=== PATIENT | male | born 1945 | race Caucasian/White ===

== ENCOUNTER 2016-07-09 10:07 | Inpatient (IN) | payer MEDICARE, OTHER ==
[~2016-07-09] VITALS: Ht 167.6 cm; Wt 78.7 kg
[2016-07-09] MEDS ORDERED: SOD CHLORIDE 0.9% 500 ML IV STA (10:11)
[2016-07-09 10:35] LABS: ADD SCAN DIFF NO
[2016-07-09 10:40] LABS: BASOPHILS % 0.1 % (0.0-2.0); EOSINOPHILS # 0.2 10^3/ul (0.0-0.5); EOSINOPHILS % 1.6 % (0.0-7.0); HEMATOCRIT 30.2 % (42.0-52.0); HEMOGLOBIN 9.8 g/dl (14.0-18.0); LYMPHOCYTES # 0.8 10^3/ul (0.8-2.9); LYMPHOCYTES % 8.1 % (15.0-51.0); MEAN CORPUSCULAR HEMOGLOBIN 30.4 pg (29.0-33.0); MEAN CORPUSCULAR HGB CONC 32.5 g/dl (32.0-37.0); MEAN CORPUSCULAR VOLUME 93.8 fl (82.0-101.0); MEAN PLATELET VOLUME 9.7 fl (7.4-10.4); MONOCYTE # 0.8 10^3/ul (0.3-0.9); MONOCYTES % 7.7 % (0.0-11.0); NEUTROPHIL # 8.2 10^3/ul (1.6-7.5); NEUTROPHILS % 81.9 % (39.0-77.0); PLATELET COUNT 298 10^3/UL (140-415); RED BLOOD COUNT 3.22 10^6/ul (4.70-6.10); RED CELL DISTRIBUTION WIDTH 13.2 % (11.5-14.5)
[2016-07-09] MEDS ORDERED: ZOLP10TA PO (10:53)
[2016-07-09] MEDS ORDERED: ARGI1POW19 PO (10:53)
[2016-07-09] MEDS ORDERED: ASPI81TA3 PO (10:53)
[2016-07-09] MEDS ORDERED: BENZ1TAB7 PO (10:54)
[2016-07-09 10:55] LABS: INR 1.2; PROTIME 15.3 Sec (12.2-14.2); PT RATIO 1.2
[2016-07-09] MEDS ORDERED: FURO20TA3 PO (10:55)
[2016-07-09] MEDS ORDERED: CLON-379 PO (10:55)
[2016-07-09] MEDS ORDERED: IPRA3AMP INHALATION (10:55)
[2016-07-09 10:56] LABS: PARTIAL THROMBOPLASTIN TIME 34.7 Sec (25.0-35.0)
[2016-07-09] MEDS ORDERED: ATOR40TA68 PO (10:56)
[2016-07-09] MEDS ORDERED: HYDR-906 PO (10:57)
[2016-07-09] MEDS ORDERED: MULTI PO (10:57)
[2016-07-09] MEDS ORDERED: FINA5TAB PO (10:57)
[2016-07-09 10:58] LABS: ALBUMIN 2.1 g/dl (3.3-4.9); ALBUMIN/GLOBULIN RATIO 0.61; CALCIUM 7.9 mg/dl (8.4-10.2); CREATININE 4.26 mg/dl (0.61-1.24); POTASSIUM 4.1 mmol/L (3.5-5.1); TOTAL PROTEIN 5.5 g/dl (6.1-8.1)
[2016-07-09] MEDS ORDERED: PANT40TA3 PO (10:59)
[2016-07-09] MEDS ORDERED: ACET-2047 PO (11:00)
[2016-07-09] MEDS ORDERED: TRAZ100T15 PO (11:00)
[2016-07-09] MEDS ORDERED: ASCO500C7 PO (11:00)
[2016-07-09] MEDS ORDERED: LATA2.5D9 BOTH EYES (11:01)
[2016-07-09] MEDS ORDERED: LISI-526 PO (11:04)
--- NOTE | 2016-07-09 11:04 | ERA ---
ER Documentation Chief Complaint Date/Time DATE: 07/09/16 TIME: 11:02 Chief Complaint elevated bun and creatinin HPI 71-year-old elderly male sent to the emergency room because of routine blood test showing elevated BUN and creatinine. The patient is conversive and has no complaints. He denies any nausea vomiting or abdominal pain. He denies any fevers, chills, chest pain or shortness of breath. He denies history of dialysis. ROS All systems reviewed and are negative except as per history of present illness. Medications Home Meds Reported Medications Olanzapine* (Zyprexa*) 5 Mg Tablet, 5 MG PO QHS, #30 TAB 07/09/16 Zinc Sulfate* (Zinc Sulfate*) 220 Mg Tablet, 220 MG PO DAILY, TAB 07/09/16 Lisinopril* (Zestril*) 40 Mg Tablet, 40 MG PO DAILY, #30 TAB HOLD FOR SBP<110 07/09/16 Latanoprost (Xalatan) 2.5 Ml Drops, 1 DROP BOTH EYES QHS, #1 BOTTLE 07/09/16 Ascorbic Acid* (Vitamin C*) 500 Mg Capsule.sa, 500 MG PO DAILY, CAP 07/09/16 Acetaminophen* (Acetaminophen*) 650 Mg Tablet, 650 MG PO Q4 Y for PAIN AND OR ELEVATED TEMP, #30 TAB 07/09/16 Trazodone Hcl* (Trazodone Hcl*) 100 Mg Tablet, 100 MG PO QHS, #30 TAB 07/09/16 Pantoprazole* (Protonix*) 40 Mg Tablet.dr, 40 MG PO AC BREAKFAST, TAB 07/09/16 Finasteride* (Proscar*) 5 Mg Tablet, 5 MG PO DAILY, TAB 07/09/16 Hydrocodone/Acetaminophen ([place] 5-325 Tablet) 1 Each Tablet, 1 EACH PO Q4 Y for SEVERE PAIN LEVEL 7-10, TAB 07/09/16 Multivitamins* (Theragran*) 1 Tab Tab, 1 TAB PO DAILY, TAB 07/09/16 Atorvastatin* (Atorvastatin*) 40 Mg Tablet, 40 MG PO QHS, #30 TAB 07/09/16 Furosemide* (Furosemide*) 20 Mg Tablet, 20 MG PO DAILY, #60 TAB 07/09/16 Ipratropium-Albuterol (Ipratropium-Albuterol) 0.5-3 Mg/3 Ml Ampul.neb, 3 ML INHALATION Q6, #30 VIAL 07/09/16 Clonidine Hcl* (Clonidine Hcl*) 0.1 Mg Tab, 0.1 MG PO Q6 Y for ELEVATED BLOOD PRESSURE, TAB 07/09/16 Benztropine Mesylate* (Benztropine Mesylate*) 1 Mg Tablet, 1 MG PO BID, TAB 07/09/16 Aspirin* (Aspirin* Chew) 81 Mg Tab.chew, 81 MG PO DAILY, TAB.CHEW 07/09/16 Arginine/Ascorbate Sod/Julio AC (Arginaid Powder) 1 Each Powd.pack, 1 EACH PO BID 07/09/16 Zolpidem Tartrate* (Ambien*) 10 Mg Tablet, 10 MG PO QHS Y for INSOMNIA, TAB 07/09/16 Discontinued Reported Medications Lisinopril* (Zestril*) 40 Mg Tablet, 40 MG PO DAILY, #30 TAB 07/09/16 Allergies Allergies: Coded Allergies: No Known Allergy (Unverified , 07/09/16) PMhx/Soc Hx Alcohol Use: No Hx Substance Use: No Hx Tobacco Use: No Smoking Status: Never smoker FmHx Family History: No diabetes Physical Exam Vitals Vital Signs Date Time Temp Pulse Resp B/P Pulse Ox O2 Delivery O2 Flow Rate FiO2 07/09/16 10:10 98.1 71 18 114/71 99 Physical Exam General: Well developed, well nourished, no acute distress Head: Normocephalic, atraumatic. Eyes: Pupils equally reactive, EOM intact ENT: Slightly dry mucous membranes Neck: Supple, no lymphadenopathy Respiratory: Lungs clear bilaterally, no distress Cardiovascular: RRR, no murmurs, rubs, or gallops Abdominal: Soft, non-tender, non-distended, no peritoneal signs : Deferred MSK: No edema, no unilateral swelling, 5/5 strength Neurologic: Alert and oriented, moving all extremities, normal speech, no focal weakness, no cerebellar signs Skin: No rash Psych: Normal mood Result Diagram: 07/09/16 1025 07/09/16 1025 Results 24 hrs Laboratory Tests Test 07/09/16 10:25 07/09/16 10:40 White Blood Count 10.010^3/ul Red Blood Count 3.2210^6/ul Hemoglobin 9.8g/dl Hematocrit 30.2% Mean Corpuscular Volume 93.8fl Mean Corpuscular Hemoglobin 30.4pg Mean Corpuscular Hemoglobin Concent 32.5g/dl Red Cell Distribution Width 13.2% Platelet Count 44981^3/UL Mean Platelet Volume 9.7fl Neutrophils % 81.9% Lymphocytes % 8.1% Monocytes % 7.7% Eosinophils % 1.6% Basophils % 0.1% Nucleated Red Blood Cells % 0.0/100WBC Neutrophils # 8.210^3/ul Lymphocytes # 0.810^3/ul Monocytes # 0.810^3/ul Eosinophils # 0.210^3/ul Basophils # 0.010^3/ul Nucleated Red Blood Cells # 0.010^3/ul Prothrombin Time 15.3Sec Prothrombin Time Ratio 1.2 INR International Normalized Ratio 1.20 Activated Partial Thromboplast Time 34.7Sec Sodium Level 146mmol/L Potassium Level 4.1mmol/L Chloride Level 117mmol/L Carbon Dioxide Level 23mmol/L Anion Gap 10 Blood Urea Nitrogen 95mg/dl Creatinine 4.26mg/dl Glucose Level 126mg/dl Calcium Level 7.9mg/dl Total Bilirubin 0.0mg/dl Direct Bilirubin 0.00mg/dl Indirect Bilirubin 0.0mg/dl Aspartate Amino Transf (AST/SGOT) 30IU/L Alanine Aminotransferase (ALT/SGPT) 41IU/L Alkaline Phosphatase 90IU/L Troponin I 0.056ng/ml Total Protein 5.5g/dl Albumin 2.1g/dl Globulin 3.40g/dl Albumin/Globulin Ratio 0.61 Lipase 46U/L Urine Color YELLOW Urine Clarity CLEAR Urine pH 5.5 Urine Specific [place] 1.025 Urine Ketones NEGATIVE Urine Nitrite NEGATIVE Urine Bilirubin NEGATIVE Urine Urobilinogen 0.2 E.U./dL Urine Leukocyte Esterase TRACE Urine Microscopic RBC 25-50/HPF Urine Microscopic WBC 0-2/HPF Urine Squamous Epithelial Cells FEW Urine Bacteria FEW Urine Hemoglobin 3+ Urine Glucose NEGATIVE% Urine Total Protein 2+ Current Medications Medications (Trade) Dose Ordered Sig/Shreyas Route PRN Reason Start Time Stop Time Status Last Admin Dose Admin Sodium Chloride (NS) 500 ml @ 500 mls/hr Q1H STAT IV 07/09/16 10:11 07/09/16 11:10 DC 07/09/16 10:46 Procedures/MDM EKG, MONITORS, & DIAGNOSTIC IMAGING: EKG: I reviewed and interpreted a 12-lead EKG. Rhythm: Normal sinus rhythm Ectopy: None Intervals: No abnormalities ST segments: No elevations or depressions T waves: No contiguous inversions Chest x-ray: Per radiology IMPRESSION: 1. Increased soft tissue density is seen at the right inferior lateral pleural with a convex medial margin. This could represent loculated fluid, hematoma, or a mass. 2. The right costophrenic angle is blunted suspicious for pleural fluid but no pneumothorax is evident. 3. The heart size is normal but the pulmonary vasculature is equivocal for pulmonary venous obstruction and interstitial infiltrates extend to the perihilar regions becoming more alveolar at the lung bases which could represent pulmonary edema or pneumonitis. There is slight pleural parenchymal scarring at the left pulmonary apex. Findings of increased soft tissue density at the right inferior lateral pleural with a convex medial margin that could represent loculated fluid, hematoma or a mass were telephoned by Carlos Carty MD to Dr. Prasad on 07/09/[address] abdomen and pelvis: IMPRESSION: 1. Findings concerning for a partially obstructive colonic mass/neoplasm at the level of the rectosigmoid junction, as discussed above. Endoscopic correlation is recommended. No gross evidence of metastatic disease is seen in the abdomen and pelvis. 2. Moderate retained fecal material is suggestive of constipation. 3. Bowel containing left inguinal/scrotal hernia is identified, without obstruction or incarceration. 4. There are mild bilateral pleural effusions, partially loculated on the right. Severe bibasilar pulmonary emphysema is noted. 5. Cholelithiasis is seen without evidence for cholecystitis. 6. Aortoiliac atherosclerotic calcifications are present. 7. Avila catheter balloon is within the urinary bladder. RPTAT: AA LAB INTERPRETATION: No leukocytosis, anemia, creatinine elevation of 4.26 unknown baseline, potassium 4.1, negative troponin MEDICAL DECISION MAKING: Patient presents for routine blood draw showing evidence of acute renal failure. Unclear etiology. Patient has no evidence of CHF, consideration for possible obstructive process therefore Avila catheter was replaced. Low concern for acute intra-abdominal process though given patient's age CT imaging will be obtained. Patient is otherwise extremely well-appearing in the emergency room and will undergo screening for hyperkalemia. The patient will likely be admitted for further management of acute renal failure. ER COURSE: The patient's diagnostic imaging is very concerning for malignancy possible colonic malignancy with pulmonary metastasis. Inpatient hospitalization for further workup. The patient was given IV fluids. No indication for antibiotics. No evidence of hyperkalemia. I kept the patient and/or family informed of laboratory and diagnostic imaging results throughout the emergency room course. DISPOSITION PLAN: Medical surgical admission for management of acute renal failure, likely new diagnosis of malignancy CONSULTATION: Accepting care team and consultations: I discussed the current laboratory data, diagnostic imaging and emergency care provided. Admitting team: Dr. Rene Admitting team indication: Insurance directed, primary care physician Departure Diagnosis: Primary Impression: Acute renal failure Qualified Code: N17.9 - Acute renal failure, unspecified acute renal failure type Additional Impressions: Colonic mass Pulmonary mass Condition: Stable WELLINGTON PRASAD MD July 09, 2016 11:04
[2016-07-09] MEDS ORDERED: ZINC220T PO (11:05)
[2016-07-09] MEDS ORDERED: OLAN5TAB5 PO (11:06)
[2016-07-09 11:09] LABS: TROPONIN-I 0.056 ng/ml (0.00-0.12)
[2016-07-09 11:09] LABS: ADD UMIC YES; UR BILIRUBIN (Dip) NEGATIVE (NEGATIVE); UR BLOOD (Dip) 3+ (NEGATIVE); UR CLARITY CLEAR (CLEAR); UR COLOR YELLOW (YELLOW); UR GLUCOSE (Dip) NEGATIVE (NEGATIVE); UR KETONES (Dip) NEGATIVE (NEGATIVE); UR LEUKOCYTE ESTERASE (Dip) TRACE (NEGATIVE); UR NITRITE (Dip) NEGATIVE (NEGATIVE); UR TOTAL PROTEIN (Dip) 2+ (NEGATIVE); UR UROBILINOGEN (Dip) 0.2 E.U./dL (0.1-1.0)
--- NOTE | 2016-07-09 11:16 | RADRPT ---
PROCEDURE: XR Chest AP portable CLINICAL INDICATION: Abdominal pain TECHNIQUE: An AP portable radiograph of the chest was submitted. COMPARISON: None. FINDINGS: Support Hardware: None Cardiovascular: The heart is normal in size. The pulmonary vasculature is equivocal for pulmonary v enous obstruction. Lung Rogers: There is perihilar interstitial prominence. Increasing alveolar infiltrate is seen wit hin the medial lower lung zones bilaterally. Pleural Spaces: There is minimal pleural parenchymal scarring at the left pulmonary apex. There is increased soft tissue density involving the right inferior lateral pleural with a medial convex nahid in. This could represent a mass, loculated fluid, or hematoma. The left costophrenic angle is blun mike but no pneumothorax is evident. Osseous Structures: Mild degenerative spine changes are seen diffusely. Soft Tissues: The soft tissues appear unremarkable. IMPRESSION: 1. Increased soft tissue density is seen at the right inferior lateral pleural with a convex medial margin. This could represent loculated fluid, hematoma, or a mass. 2. The right costophrenic angle is blunted suspicious for pleural fluid but no pneumothorax is evid ent. 3. The heart size is normal but the pulmonary vasculature is equivocal for pulmonary venous obstruc tion and interstitial infiltrates extend to the perihilar regions becoming more alveolar at the lung bases which could represent pulmonary edema or pneumonitis. There is slight pleural parenchymal sc arring at the left pulmonary apex. Findings of increased soft tissue density at the right inferior lateral pleural with a convex medial margin that could represent loculated fluid, hematoma or a mass were telephoned by Carlos Carty MD to Dr. Prasad on 07/09/2016 at 1112 hours. Physician Rick Date Time Electronically viewed and signed by Physician Rick on 07/09/2016 11:16 /
[2016-07-09 11:30] LABS: UR BACTERIA FEW; UR SQUAMOUS EPITHELIAL CELL FEW; URINE RBCS 25-50 /HPF (0)
--- NOTE | 2016-07-09 11:59 | RADRPT ---
PROCEDURE: CT Abdomen and Pelvis without contrast. CLINICAL INDICATION: Abdominal pain TECHNIQUE: CT of the abdomen and pelvis was performed on a multi-detector scanner without IV contr ast. Coronal and sagittal images were reformatted from the axial data set. One or more of the foll owing dose reduction techniques were used: automated exposure control, adjustment of the mA and/or kV according to patient size, use of iterative reconstruction technique. CTDI = 12.62 mGy. DLP = 89 1.21 mGy-cm. COMPARISON: None. FINDINGS: CT abdomen: There are mild bilateral pleural effusions, partially loculated on the right. Severe bibasilar pulm onary emphysema is noted. The heart size is normal, without pericardial effusion. Cholelithiasis i s seen without evidence for cholecystitis. Liver, biliary tree, pancreas, spleen, adrenal glands an d kidneys are unremarkable except for a benign right renal cyst. There is no urolithiasis or obstru ctive uropathy. The stomach is grossly unremarkable. The aorta is of normal caliber. Aortic vascular calcifications are present. There is no retroperit amaya lymphadenopathy. The ciera hepatis region is clear. CT pelvis: Moderate retained fecal material is suggestive of constipation. 3 cm segment of narrowing and wall thickening is identified at the rectosigmoid junction (3-135). Proximally, the sigmoid colon is sig nificantly distended and stool-filled. Partially obstructive colonic neoplasm is not excluded in th is location. No adjacent lymphadenopathy is seen. There is no small bowel obstruction, free intrap eritoneal air or abscess. The appendix is well visualized and normal. There is no diverticulosis o r diverticulitis. Bowel containing left inguinal/scrotal hernia is identified, without incarceratio n. Avila catheter balloon is within the urinary bladder. No pelvic lymphadenopathy or free fluid i s identified. The surrounding osseous structures are remarkable for degenerative spondylosis of the spine. No ost eolytic or osteoblastic lesion is detected. IMPRESSION: 1. Findings concerning for a partially obstructive colonic mass/neoplasm at the level of the rectos igmoid junction, as discussed above. Endoscopic correlation is recommended. No gross evidence of m etastatic disease is seen in the abdomen and pelvis. 2. Moderate retained fecal material is suggestive of constipation. 3. Bowel containing left inguinal/scrotal hernia is identified, without obstruction or incarceratio n. 4. There are mild bilateral pleural effusions, partially loculated on the right. Severe bibasilar pulmonary emphysema is noted. 5. Cholelithiasis is seen without evidence for cholecystitis. 6. Aortoiliac atherosclerotic calcifications are present. 7. Avila catheter balloon is within the urinary bladder. RPTAT: AA .Irvin Serrano MD, MD Date Time Electronically viewed and signed by .Irvin Serrano MD, on 07/09/2016 11:59 .R/
[2016-07-09] MEDS ORDERED: ACETAMINOPHEN 325 MG TAB PO PRN (12:30)
[2016-07-09] MEDS ORDERED: ONDANSETRON 4 MG INJ IV PRN ×2 (12:30→20:30)
[2016-07-09 19:35] VITALS: BP 132/63; PULSE 81; RESP 18
[2016-07-09] MEDS: LACTULOSE 30ML CUP PO SCH ×2 (20:07→22:15)
[2016-07-09] MEDS ORDERED: ACETAMINOPHEN 500 MG TAB PO PRN (20:30)
[2016-07-09] MEDS ORDERED: HYDROCODONE/APAP (5/325) TAB PO PRN (20:30)
[2016-07-09] MEDS ORDERED: ALBUTEROL/IPRATROPIUM (NEB) 3 ML AMP HHN PRN (20:30)
[2016-07-09] MEDS ORDERED: ZOLPIDEM 5 MG TAB PO PRN (20:30)
[2016-07-09] MEDS ORDERED: LACTULOSE 30ML CUP PO SCH (21:00)
[2016-07-09] MEDS ORDERED: traZODone 100 MG TAB PO SCH (21:00)
[2016-07-09] MEDS: BENZTROPINE 1 MG TAB PO SCH (22:15)
[2016-07-09] MEDS: OLANZAPINE 5 MG TAB PO SCH (22:15)
[2016-07-09] MEDS: ATORVASTATIN 40 MG TAB PO SCH (22:15)
[2016-07-09] MEDS: SOD CHLORIDE 0.45% 1,000 ML IV SCH (22:16)
[2016-07-09] MEDS: LATANOPROST 0.005% 2.5 ML OPH BOTH EYES SCH (22:19)
[2016-07-10] VITALS (8 sets, daily range): BP systolic 102–132; BP diastolic 55–65; PULSE 63–72; RESP 19–22; Ht 167.6 cm; Wt 78.7 kg
[2016-07-10] MEDS: LACTULOSE 30ML CUP PO SCH ×2 (00:25→01:42)
--- NOTE | 2016-07-10 00:26 | CONS ---
DATE OF ADMISSION: 07/09/2016 DATE OF CONSULTATION: TYPE OF CONSULTATION: Gastroenterology. Dear Dr. Rene: Thank you for asking me to see Mr. Dove in GI consultation. HISTORY OF PRESENT ILLNESS: As you know, the patient is a 71-year-old white gentleman. He is admit mike to the hospital because of the history of confusion and weakness and tiredness, and patient is u nable to communicate. She is confused. On admission BUN and creatinine were significantly elevated and CAT scan of the abdomen shows mass in the rectosigmoid area. MEDICATIONS: Prior to the admission includes: 1. Zyprexa. 2. Zinc sulfate. 3. Zestril. 4. Xalatan. 5. Trazodone. 6. Protonix. 7. Proscar. 8. [place]. 9. ____ . 10. Atorvastatin. 11. Furosemide 12. Clonidine. 13. Benztropine. 14. Aspirin. 15. Ambien. 16. Zestril. REVIEW OF SYSTEM: Please refer to the history and physical for more information. From the review o f systems standpoint the patient has history of hypertension, renal failure, parkinsonism. There is also questionable pulmonary mass noted. PLAN: Recommend stabilize the patient and recommend colonoscopy. Once again, Dr. Rene, thank you for this consultation. Dictated By: DARWIN GUSMAN/MEAGAN Conf#: [id number] DID#: [id number]
[2016-07-10] MEDS: SOD CHLORIDE 0.45% 1,000 ML IV SCH ×2 (05:31→16:43)
--- NOTE | 2016-07-10 05:49 | HP ---
DATE OF ADMISSION: 07/09/2016 HISTORY OF PRESENT ILLNESS: The patient is a 71-year-old gentleman with a history of COPD, hyperten zenobia, benign prostatic hypertrophy, dementia with behavioral disturbance and dyslipidemia, who was r ecently admitted at [facility] for acute encephalopathy and was diagnosed with UTI, dehydration and metabolic encephalopathy. Further workup also revealed that he had acute stroke on his MRI. The patient was sent to [facility] ER nursing [facility] for further care. The patient also had decubiti on both feet. The patient at baseline is awake, alert; however, only oriented x1 to 2. The patient was recently noted to have leg edema and in view of his tory of hypertension and COPD, the patient was given a trial of Lasix 20 mg every day and followup l abs revealed that patient was in acute kidney injury. The patient's BUN was 12, creatinine was 0.6 on 06/18/2016. Followup labs done last night revealed BUN of 95, creatinine of 4.2. The patient's sodium was 147. The patient was transferred to [facility] ER for further evaluation and ky shannan, where he again was noted to have BUN of 95, creatinine of 4.2. Liver enzymes were normal. The patient had CT of the abdomen and pelvis done in the ER today at [facility] which rev ealed findings concerning for partial obstructive colonic mass arising at the level of the rectus ma rgin, moderate fecal material and cholelithiasis. The patient also had aortic atherosclerotic calci fication. A Avila was in place. The patient also had a hemoglobin of 9.8. Baseline, his hemoglobi n was 12. The patient did not have any recent rectal bleed. The patient denies any , he did h ave occasional cough. The patient does have history of COPD and had been smoking on and off for sev eral years. The patient is a poor historian due to dementia. The patient denies any chest pain or abdominal pain. No reported bleeding from any site. The patient does not have any edema on the low er extremities. A chest x-ray was done in the ER which revealed increased soft tissue density right inferolateral pleura with convex medial margin, possibility of loculated fluid, also fo r obstruction and interstitial infiltrates representing pulmonary edema or pneumonia. The pat ient, however, clinically did not have any white count and was afebrile. Urine examination had only trace leukocyte esterase and few bacteria and 0 to 2 WBCs. The patient is being admitted for [facility] er evaluation and management. . REVIEW OF SYSTEMS: Review of systems was rather limited due to . Denies pain or throat pain and was breathing comfortably. The patient did not have any acute joint swelling. The patient has chronic bilateral feet and coccygeal decubiti. . MEDICATIONS: Please see . FAMILY HISTORY: Denies any family history. SOCIAL HISTORY: The patient smokes . PHYSICAL EXAMINATION: GENERAL: The patient is awake, alert, in no distress, oriented x1. HEENT: Atraumatic, normocephalic. Conjunctivae and lids normal. Oropharynx revealed dry oral muco sa. NECK: Supple. No mass, no thyromegaly. CHEST: Revealed diminished air entry at bases. No use of accessory muscles. CARDIOVASCULAR: S1, S2 normal. No murmur, gallop, or rub. ABDOMEN: Soft, nondistended, nontender. No palpable mass. EXTREMITIES: No leg edema. Pedal pulses palpable. SKIN: Without acute rash. Bilateral heel and coccyx decubiti present. Please see nursing note for further details. NEUROLOGIC: The patient is awake, alert, follows simple commands. Moves all extremities, although the patient does have generalized weakness. LABORATORY DATA: Done in the ER, WBC 10, hemoglobin 9.8, platelets 298. Chemistry: Sodium 146, po tassium 4.1, BUN 95, creatinine 4.2, glucose 126. IMPRESSION: 1. Acute kidney injury, etiology unknown. The patient's CT of the abdomen does not show any hydron ephrosis. The patient will be given a trial of IV fluids. We will also obtain echocardiogram to as sess LV function. We will hold off on antibiotic. Nephrology consult from Dr. Srinivasan has been obt ained. 2. Hypertension. We will hold off on Zestril. The patient's blood pressure is 131/76. We will pu t him on IV hydralazine on p.r.n. basis for now. 3. Chronic obstructive pulmonary disease. We will continue to monitor. The patient is not activel y wheezing. 4. Benign prostatic hypertrophy. We will resume Flomax. 5. Loculated pleural effusion. Monitor. 6. Multiple decubiti. Wound care consult will be obtained. 7. Acute cerebrovascular accident. We will start baby aspirin. 8. Dyslipidemia. We will continue Lipitor. 9. Dementia with behavioral disturbance. Continue Zyprexa. Further recommendations will depend on patient's hospital course and recommendations from [employer] consultant s. Dictated By: RONNIE PEREZ/MEAGAN Conf#: [id number] DID#: [id number]
[2016-07-10 06:17] LABS: ADD SCAN DIFF NO
[2016-07-10 06:24] LABS: BASOPHILS % 0.1 % (0.0-2.0); EOSINOPHILS # 0.1 10^3/ul (0.0-0.5); EOSINOPHILS % 0.4 % (0.0-7.0); HEMATOCRIT 32.2 % (42.0-52.0); HEMOGLOBIN 10.3 g/dl (14.0-18.0); LYMPHOCYTES # 0.7 10^3/ul (0.8-2.9); LYMPHOCYTES % 3.9 % (15.0-51.0); MEAN CORPUSCULAR VOLUME 93.9 fl (82.0-101.0); MEAN PLATELET VOLUME 9.9 fl (7.4-10.4); MONOCYTE # 0.8 10^3/ul (0.3-0.9); MONOCYTES % 4.4 % (0.0-11.0); NEUTROPHIL # 16.8 10^3/ul (1.6-7.5); NEUTROPHILS % 90.7 % (39.0-77.0); PLATELET COUNT 309 10^3/UL (140-415); RED BLOOD COUNT 3.43 10^6/ul (4.70-6.10); RED CELL DISTRIBUTION WIDTH 13.6 % (11.5-14.5); WHITE BLOOD COUNT 18.5 10^3/ul (4.8-10.8)
[2016-07-10 06:57] LABS: ALBUMIN 2.1 g/dl (3.3-4.9); ALBUMIN/GLOBULIN RATIO 0.61; CALCIUM 7.7 mg/dl (8.4-10.2); CREATININE 4.28 mg/dl (0.61-1.24); POTASSIUM 3.4 mmol/L (3.5-5.1); TOTAL PROTEIN 5.5 g/dl (6.1-8.1)
--- NOTE | 2016-07-10 08:59 | CONS ---
Date/Time of Note Date/Time of Note DATE: 07/10/16 TIME: 08:55 Assessment/Plan Assessment/Plan Additional Assessment/Plan 1. Acute kidney injury, Pre- Renal R/o ATN, Avila no signs of obstructive Uropathy, Hx of BPH. 2. Hypertension. Normotensive at this time. 3. Chronic obstructive pulmonary disease. 4. Benign prostatic hypertrophy. 5. Loculated pleural effusion. 6. Multiple decubiti 7. Cerebrovascular accident. 8. Dyslipidemia. 9. Dementia with behavioral disturbance. 10. Metabolic Acidosis Pt with Elevated BUN/Cr in the setting of Sepsis, Possible ATN UA reviewed, F/u Urine culture r/o UTI Will Send repeat UA, Urine Na and Cr, Check Urine Eos Send Complement C3/4, Add WILL, UPC Due to AMS and lethargy recommend Telemetry and ABG CT Imaging reviewed Cont to monitor UO, Volume status, Electrolytes and Renal function No emergent indication for HD at this time, Cr stable. Thank you Dr Patel for the opportunity to participate in the care of Mr Dove Consultation Date/Type/Reason Admit Date/Time July 09, 2016 at 12:24 Type of Consultation: Renal Reason for Consultation SRAVANTHI Referring Provider: RONNIE PATEL MD Hx of Present Illness Pt is poor historian at this time,due to clinical condition Hx taken from EMR and Hospital staff. 71-year-old gentleman with a history of COPD, hypertension, benign prostatic hypertrophy, dementia with behavioral disturbance and dyslipidemia, who [facility] with abnormal labs and further evaluation, found to have abnormal renal function, Elevated BUN/Cr and concern for sepsis. Nephrology consulted for SRAVANTHI, Pt is making urine however it is dark and concentrated. Avila catheter present. unable Past Medical History Medical History: hypertension, other (COPD) Past Surgical History Past Surgical Hx: other Family History Significant Family History: no pertinent family hx Social History Alcohol Use: none Smoking Status: Never smoker Drug Use: none Exam/Review of Systems Vital Signs Vitals Vital Signs Date Time Temp Pulse Resp B/P Pulse Ox O2 Delivery O2 Flow Rate FiO2 07/10/16 07:49 101.9 79 22 132/61 92 07/10/16 02:45 2.0 07/10/16 00:50 Nasal Cannula Intake and Output 07/09/16 07/09/16 07/10/16 15:00 23:00 07:00 Intake Total 700 ml Balance 700 ml Exam Constitutional: No distress Head: atraumatic, normocephalic ENMT: other, No mucosa pink and moist Respiratory: crackles/rales, No diminished breath sounds, No labored breathing Cardiovascular: regular rate and rhythm, No edema Gastrointestinal: non-tender, soft, No distended, No rebound or guarding Extremities: No edema Neurological: lethargic Skin: No diaphoresis, No rash or lesions Results Result Diagram: 07/10/16 0535 07/10/16 0535 Results 24 hrs Laboratory Tests Test 07/09/16 10:25 07/09/16 10:40 07/10/16 05:35 White Blood Count 10.0 18.5 #H Red Blood Count 3.22 L 3.43 L Hemoglobin 9.8 L 10.3 L Hematocrit 30.2 L 32.2 L Mean Corpuscular Volume 93.8 93.9 Mean Corpuscular Hemoglobin 30.4 30.0 Mean Corpuscular Hemoglobin Concent 32.5 32.0 Red Cell Distribution Width 13.2 13.6 Platelet Count 298 309 Mean Platelet Volume 9.7 9.9 Neutrophils % 81.9 H 90.7 H Lymphocytes % 8.1 L 3.9 L Monocytes % 7.7 4.4 Eosinophils % 1.6 0.4 Basophils % 0.1 0.1 Nucleated Red Blood Cells % 0.0 0.0 Neutrophils # 8.2 H 16.8 H Lymphocytes # 0.8 0.7 L Monocytes # 0.8 0.8 Eosinophils # 0.2 0.1 Basophils # 0.0 0.0 Nucleated Red Blood Cells # 0.0 0.0 Prothrombin Time 15.3 H Prothrombin Time Ratio 1.2 INR International Normalized Ratio 1.20 Activated Partial Thromboplast Time 34.7 Sodium Level 146 H 148 H Potassium Level 4.1 3.4 L Chloride Level 117 H 121 H Carbon Dioxide Level 23 20 L Anion Gap 10 10 Blood Urea Nitrogen 95 H 97 H Creatinine 4.26 H 4.28 H Glucose Level 126 93 Calcium Level 7.9 L 7.7 L Total Bilirubin 0.0 L 0.0 L Direct Bilirubin 0.00 0.00 Indirect Bilirubin 0.0 0.0 Aspartate Amino Transf (AST/SGOT) 30 31 Alanine Aminotransferase (ALT/SGPT) 41 39 Alkaline Phosphatase 90 88 Troponin I 0.056 Total Protein 5.5 L 5.5 L Albumin 2.1 L 2.1 L Globulin 3.40 H 3.40 H Albumin/Globulin Ratio 0.61 0.61 Lipase 46 Urine Color YELLOW Urine Clarity CLEAR Urine pH 5.5 Urine Specific [place] 1.025 Urine Ketones NEGATIVE Urine Nitrite NEGATIVE Urine Bilirubin NEGATIVE Urine Urobilinogen 0.2 E.U./dL Urine Leukocyte Esterase TRACE H Urine Microscopic RBC 25-50 Urine Microscopic WBC 0-2 Urine Squamous Epithelial Cells FEW Urine Bacteria FEW Urine Hemoglobin 3+ H Urine Glucose NEGATIVE Urine Total Protein 2+ H Medications Medications Current Medications Sodium Chloride (1/2 NS) 1,000 ml @ 100 mls/hr Q10H IV Last administered on 22:16; Admin Dose 100 MLS/HR; Start 07/09/16 at 20:30 Acetaminophen (Tylenol Tab) 500 mg Q6H PRN PO PAIN AND OR ELEVATED TEMP; Start 07/09/16 at 20:30 Ondansetron HCl (Zofran Inj) 4 mg Q6H PRN IV NAUSEA AND/OR VOMITING; Start at 20:30 Zolpidem Tartrate (Ambien) 5 mg HS PRN PO INSOMNIA; Start 07/09/16 at 20:30 Aspirin (Aspirin) 81 mg DAILY PO ; Start 07/10/16 at 09:00 Atorvastatin Calcium (Lipitor) 40 mg QHS PO Last administered on 07/09/16 22: 15; Admin Dose 40 MG; Start 07/09/16 at 21:00 Benztropine Mesylate (Cogentin) 1 mg BID PO Last administered on 07/09/16 22: 15; Admin Dose 1 MG; Start 07/09/16 at 21:00 Clonidine (Catapres) 0.1 mg Q6 PRN PO SBP ABOVE 160; Start 07/09/16 at 20:30 Finasteride (Proscar) 5 mg DAILY PO ; Start 07/10/16 at 09:00 Acetaminophen/ Hydrocodone Bitart ([place] (5/325)) 1 tab Q4 PRN PO SEVERE PAIN LEVEL 7-10; Start 07/09/16 at 20:30 Latanoprost (Xalatan) 1 drop QHS BOTH EYES Last administered on 07/09/16 22:19 ; Admin Dose 1 DROP; Start 07/09/16 at 21:00 Multivitamins Therapeutic (Theragran) 1 tab DAILY PO ; Start 07/10/16 at 09:00 Olanzapine (Zyprexa) 5 mg QHS PO Last administered on 07/09/16 22:15; Admin Dose 5 MG; Start 07/09/16 at 21:00 Trazodone HCl (Desyrel) 100 mg QHS PO Last administered on 07/09/16 22:16; Admin Dose 100 MG; Start 07/09/16 at 21:00 Zinc Sulfate (Zinc Sulfate) 220 mg DAILY PO ; Start 07/10/16 at 09:[address] abdomen Liver, biliary tree, pancreas, spleen, adrenal glands and kidneys are unremarkable except for a benign right renal cyst. There is no urolithiasis or obstructive uropathy.\ Cxr IMPRESSION: 1. Increased soft tissue density is seen at the right inferior lateral pleural with a convex medial margin. This could represent loculated fluid, hematoma, or a mass. 2. The right costophrenic angle is blunted suspicious for pleural fluid but no pneumothorax is evident. 3. The heart size is normal but the pulmonary vasculature is equivocal for pulmonary venous obstruction and interstitial infiltrates extend to the perihilar regions becoming more alveolar at the lung bases which could represent pulmonary edema or pneumonitis. There is slight pleural parenchymal scarring at the left pulmonary apex. TACOS GREEN MD July 10, 2016 08:59
[2016-07-10] MEDS: MULTIVITAMINS THERAPEUTIC TAB PO SCH (09:00)
[2016-07-10] MEDS: ZINC SULFATE 220 MG CAP PO SCH (09:00)
[2016-07-10] MEDS: ASPIRIN 81 MG TAB PO SCH (09:00)
[2016-07-10] MEDS: FINASTERIDE 5 MG TAB PO SCH (09:00)
[2016-07-10] MEDS: PANTOPRAZOLE (EC) 40 MG TAB PO SCH (09:00)
[2016-07-10] MEDS: BENZTROPINE 1 MG TAB PO SCH ×2 (09:00→21:00)
[2016-07-10] MEDS ORDERED: ACETAMINOPHEN 650 MG SUPP PR PRN (09:30)
[2016-07-10 09:32] LABS: AADO2 Arterial 93.7 mmHg (7.0-24.0); Allen Test ACCEPTAB; Arterial Base Excess -4.6 mmol/L (-3.0-3); Arterial COHb 0.3 % (0.0-3.0); Arterial Fraction of Oxyhgb 92.5 % (93.0-99.0); Arterial HCO3 19.2 mmol/L (22.0-26.0); Arterial MetHb 0.4 % (0.0-1.5); Arterial Total Hemglobin 10.8 g/dl (12.0-18.0); MODE NASAL CANNULA
[2016-07-10] MEDS ORDERED: LIDOCAINE 2% (SDV) 5 ML INJ ONE (11:57)
[2016-07-10] MEDS ORDERED: PROPOFOL 0 ML ONE (11:57)
[2016-07-10] MEDS ORDERED: EPHEDrine SULFATE 50 MG/5 ML SYG ONE (11:57)
[2016-07-10] MEDS ORDERED: FENTAnyl 50 MCG/ML VIAL ONE (11:58)
[2016-07-10] MEDS ORDERED: PHENYLephrine (100 MCG/ML) 5ML SYG ONE (11:58)
[2016-07-10 11:59] LABS: COMPLEMENT C3 97 mg/dl (88-165); COMPLEMENT C4 32 mg/dl (14-44)
[2016-07-10 12:08] LABS: ADD UMIC YES; UR BILIRUBIN (Dip) NEGATIVE (NEGATIVE); UR BLOOD (Dip) 3+ (NEGATIVE); UR CLARITY CLEAR (CLEAR); UR COLOR YELLOW (YELLOW); UR GLUCOSE (Dip) NEGATIVE (NEGATIVE); UR KETONES (Dip) NEGATIVE (NEGATIVE); UR LEUKOCYTE ESTERASE (Dip) TRACE (NEGATIVE); UR NITRITE (Dip) NEGATIVE (NEGATIVE); UR TOTAL PROTEIN (Dip) 2+ (NEGATIVE); UR UROBILINOGEN (Dip) 0.2 E.U./dL (0.1-1.0)
[2016-07-10] MEDS: CEFEPIME 1GM/50 ML (PMX) 50 ML IVPB SCH (12:12)
--- NOTE | 2016-07-10 12:36 | PN ---
Date/Time of Note Date/Time of Note DATE: 07/10/16 TIME: 12:26 Assessment/Plan VTE Prophylaxis VTE Prophylaxis Intervention: other Lines/Catheters IV [facility]ter [facility] (from [facility] Peripheral IV Urinary Cath still in place: Yes Reason Cath still needed: urinary retention Assessment/Plan Assessment/Plan - Hypokalemia- replet K, AM LABS. - Acute kidney injury, etiology unknown. The patient's CT of the abdomen does not show any hydronephrosis. The patient will be given a trial of IV fluids. We will also obtain echocardiogram to assess LV function. We will hold off on antibiotic. Nephrology consult from Dr. Srinivasan has been obtained. - Hypertension. We will hold off on Zestril. The patient's blood pressure is 131/76. We will put him on IV hydralazine on p.r.n. basis for now. - Chronic obstructive pulmonary disease. We will continue to monitor. The patient is not actively wheezing. - Benign prostatic hypertrophy. We will resume Flomax. - Loculated pleural effusion. Monitor. - Multiple decubiti. Wound care consult will be obtained. - Acute cerebrovascular accident. We will start baby aspirin. - Dyslipidemia. We will continue Lipitor. - Dementia with behavioral disturbance. Continue Zyprexa. Further recommendations will depend on patient's hospital course and recommendations from consultants. Subjective 24 Hr Interval Summary Free Text/Dictation Patient was seen on 6th floor before he got transferred to tele. alert, awake, responses to simple Qs. dw staff- patient was lethargic, less responsive this morning but was more responsive during assessment. c/o left leg pain- tylenol was given. pt to transfer to tele. Constitutional: requiring O2 Exam/Review of Systems Vital Signs Vitals Vital Signs Date Time Temp Pulse Resp B/P Pulse Ox O2 Delivery O2 Flow Rate FiO2 07/10/16 11:54 98.4 63 19 115/63 99 Nasal Cannula 2.0 Intake and Output 07/09/16 07/09/16 07/10/16 15:00 23:00 07:00 Intake Total 700 ml Balance 700 ml Exam Constitutional: alert, well developed Psych: nl mood/affect Eyes: EOMI, nl sclera ENMT: nl external ears & nose Neck: non-tender Respiratory: diminished breath sounds, normal air movement Cardiovascular: nl pulses Gastrointestinal: non-tender, soft Musculoskeletal: muscle weakness Extremities: normal pulses Neurological: confused Lymph: nontender Results Result Diagram: 07/10/16 0535 07/10/16 0535 Results 24 hrs Laboratory Tests Test 07/10/16 05:35 07/10/16 09:11 07/10/16 10:20 07/10/16 11:45 White Blood Count 18.5 #H Red Blood Count 3.43 L Hemoglobin 10.3 L Hematocrit 32.2 L Mean Corpuscular Volume 93.9 Mean Corpuscular Hemoglobin 30.0 Mean Corpuscular Hemoglobin Concent 32.0 Red Cell Distribution Width 13.6 Platelet Count 309 Mean Platelet Volume 9.9 Neutrophils % 90.7 H Lymphocytes % 3.9 L Monocytes % 4.4 Eosinophils % 0.4 Basophils % 0.1 Nucleated Red Blood Cells % 0.0 Neutrophils # 16.8 H Lymphocytes # 0.7 L Monocytes # 0.8 Eosinophils # 0.1 Basophils # 0.0 Nucleated Red Blood Cells # 0.0 Sodium Level 148 H Potassium Level 3.4 L Chloride Level 121 H Carbon Dioxide Level 20 L Anion Gap 10 Blood Urea Nitrogen 97 H Creatinine 4.28 H Glucose Level 93 Calcium Level 7.7 L Total Bilirubin 0.0 L Direct Bilirubin 0.00 Indirect Bilirubin 0.0 Aspartate Amino Transf (AST/SGOT) 31 Alanine Aminotransferase (ALT/SGPT) 39 Alkaline Phosphatase 88 Total Protein 5.5 L Albumin 2.1 L Globulin 3.40 H Albumin/Globulin Ratio 0.61 Blood Gas Specimen Source Blood arterial Arterial Blood Date Drawn 07/10/2016 9:20:07 AM Arterial Blood pH (Temp corrected) 7.408 Arterial Blood pCO2 (Temp correct) 31.1 L Arterial Blood pO2 (Temp corrected) 69.2 L Arterial Blood HCO3 19.2 L Arterial Blood Base Excess -4.6 L Arterial Blood Oxygen Saturation 93.2 L Markos Test ACCEPTAB Arterial Blood Gas Puncture Site Right Radial Arterial Blood Carboxyhemoglobin 0.3 Arterial Blood Methemoglobin 0.4 Blood Gas A-a O2 Differential 93.7 H Oxyhemoglobin Percent 92.5 L Total Hemoglobin 10.8 L Blood Gas Temperature 37.0 Blood Gas Modality NASAL CANNULA FiO2 28.0 Blood Gas Notified Whom Nick Blood Gas Notified Time 07/10/2016 9:31:42 AM Lactic Acid Level 0.9 Urine Color YELLOW Urine Clarity CLEAR Urine pH 5.0 Urine Specific [place] 1.025 Urine Ketones NEGATIVE Urine Nitrite NEGATIVE Urine Bilirubin NEGATIVE Urine Urobilinogen 0.2 E.U./dL Urine Leukocyte Esterase TRACE H Urine Microscopic RBC Pending Urine Microscopic WBC Pending Urine Hemoglobin 3+ H Urine Random Creatinine Pending Urine Random Sodium 26 L Urine Glucose NEGATIVE Urine Total Protein 2+ H Medications Medications Current Medications Sodium Chloride (1/2 NS) 1,000 ml @ 100 mls/hr Q10H IV Last administered on 22:16; Admin Dose 100 MLS/HR; Start 07/09/16 at 20:30 Acetaminophen (Tylenol Tab) 500 mg Q6H PRN PO PAIN AND OR ELEVATED TEMP; Start 07/09/16 at 20:30 Ondansetron HCl (Zofran Inj) 4 mg Q6H PRN IV NAUSEA AND/OR VOMITING; Start at 20:30 Zolpidem Tartrate (Ambien) 5 mg HS PRN PO INSOMNIA; Start 07/09/16 at 20:30 Aspirin (Aspirin) 81 mg DAILY PO ; Start 07/10/16 at 09:00 Atorvastatin Calcium (Lipitor) 40 mg QHS PO Last administered on 07/09/16 22: 15; Admin Dose 40 MG; Start 07/09/16 at 21:00 Benztropine Mesylate (Cogentin) 1 mg BID PO Last administered on 07/09/16 22: 15; Admin Dose 1 MG; Start 07/09/16 at 21:00 Clonidine (Catapres) 0.1 mg Q6 PRN PO SBP ABOVE 160; Start 07/09/16 at 20:30 Finasteride (Proscar) 5 mg DAILY PO ; Start 07/10/16 at 09:00 Acetaminophen/ Hydrocodone Bitart ([place] (5/325)) 1 tab Q4 PRN PO SEVERE PAIN LEVEL 7-10; Start 07/09/16 at 20:30 Latanoprost (Xalatan) 1 drop QHS BOTH EYES Last administered on 07/09/16 22:19 ; Admin Dose 1 DROP; Start 07/09/16 at 21:00 Multivitamins Therapeutic (Theragran) 1 tab DAILY PO ; Start 07/10/16 at 09:00 Olanzapine (Zyprexa) 5 mg QHS PO Last administered on 07/09/16 22:15; Admin Dose 5 MG; Start 07/09/16 at 21:00 Zinc Sulfate 220 mg 220 mg DAILY PO ; Start 07/10/16 at 09:00 Cefepime HCl (Maxipime 1gm/50 ml (Pmx)) 50 ml @ 100 mls/hr Q24H IVPB Last administered on 07/10/16 12:12; Admin Dose 100 MLS/HR; Start 07/10/16 at 10:00 Acetaminophen (Tylenol Supp) 650 mg Q6H PRN IN ELEVATED TEMPERATURE Last administered on 07/10/16 09:51; Admin Dose 650 MG; Start 07/10/16 at 09:30 Collagenase (Santyl) 1 applic DAILY TOP ; Start 07/10/16 at 14:00 ISAEL CRYSTAL July 10, 2016 12:36
[2016-07-10 13:19] LABS: UR BACTERIA FEW; URINE RBCS >200 /HPF (0)
--- NOTE | 2016-07-10 13:36 | GILP ---
DATE OF PROCEDURE: PROCEDURE: Colonoscopy up to mid transverse colon. SURGEON: Nick Fleming MD PREOPERATIVE DIAGNOSIS: CAT scan of the abdomen shows evidence of a mass in the rectosigmoid area. Procedure performed to rule out colon cancer. POSTOPERATIVE DIAGNOSIS: Suboptimal preparation, however, there is no evidence of any neoplasm note d in the sigmoid colon; however, it cannot be excluded because of suboptimal prep. DESCRIPTION OF PROCEDURE: After the informed written consent was obtained, the patient was asked to lie on the left lateral side. Intravenous anesthesia was given by [employer] (certified registered nurse anesthesiologist). When the patient became somnolent, the Olympus video colonoscope was introduced into the rectum and scope was advanced up to mid transverse colon. In the area of the sigmoid colo n, there is a large amount of stool noted, in spite of irrigation, no tumor noted. However, mid satna cending colon and rest of the descending colon and up to mid transverse colon, the colon appeared no rmal. Endoscope at this time was withdrawn and the procedure was terminated. PLAN: Recommend repeat the colonoscopy. Dictated By: NICK FLEMING MD NC/NTS Conf#: [id number] DID#: [id number] CC: RONNIE PATEL MD; NICK FLEMING MD;*EndCC*
[2016-07-10] MEDS ORDERED: POTASSIUM CHLORIDE 20 MEQ in SOD CHLORIDE 0.9% 100 ML IVPB ONE (14:00)
--- NOTE | 2016-07-10 15:25 | QN ---
Documentation Comment ID consult requested. Dr. Henderson to see pt shortly. Thank you. WADE PINK NP July 10, 2016 15:25
--- NOTE | 2016-07-10 16:22 | RADRPT ---
PROCEDURE: CT Chest without contrast. CLINICAL INDICATION: Respiratory failure. TECHNIQUE: Multiple contiguous helical CT images of the chest were obtained without the administra tion of intravenous contrast. Coronal and sagittal reformatted images were obtained from the source images. CTDIvol (mGy): 13.19; Total Exam DLP (mGy-cm): 575 67. One or more of the following dose reduction techniques were utilized: - Automated exposure control. - Adjustment of the mA and/or kV according to patient size. - Use of iterative reconstruction technique. COMPARISON: Chest x-ray 07/09/2016. FINDINGS: Limited imaging of the lower neck is unremarkable. The heart is not enlarged. There is no pericardial effusion. There is no mediastinal, hilar or axi llary lymphadenopathy. The thoracic aorta is normal in caliber. Mild aortic arch atherosclerotic ca lcification is present. The pulmonary arteries are not enlarged. Small bilateral pleural effusions are present. There is a loculated collection of pleural fluid wit hin the lateral aspect of the right lower thorax with scattered peripheral calcification suggesting a chronic loculated pleural fluid collection. Severe diffuse centrilobular emphysematous disease is observed. Patchy consolidation is seen bilaterally within the lung bases and may be partially due to atelectasis. Diffuse bronchial wall thickening is observed. Limited imaging of the upper abdomen is unremarkable. Degenerative changes of the thoracic spine are present. Chest wall soft tissues are unremarkable. IMPRESSION: No evidence of mass or lymphadenopathy of the chest. Severe diffuse emphysematous disease. Patchy basilar consolidation which may be partially due to atelectasis. Correlate with clinical sig ns and symptoms of pneumonia. Small bilateral pleural effusions with a loculated chronic-appearing collection within the right ple ural space. RPTAT: HLST .Hayley Crawford MD, MD Date Time Electronically viewed and signed by .Hayley Crawford MD, MD on 07/10/2016 16:22 .T/
[2016-07-10] MEDS: COLLAGENASE 30 GM TUBE TOP SCH (16:43)
[2016-07-10] MEDS: OLANZAPINE 5 MG TAB PO SCH (21:00)
[2016-07-10] MEDS: ATORVASTATIN 40 MG TAB PO SCH (21:00)
[2016-07-10] MEDS: LATANOPROST 0.005% 2.5 ML OPH BOTH EYES SCH (21:10)
[2016-07-10 21:12] LABS: TROPONIN-I 0.062 ng/ml (0.00-0.12)
[2016-07-10 21:16] LABS: CK-MB 1.05 ng/ml (0.0-2.4)
[2016-07-11] VITALS (12 sets, daily range): BP systolic 123–139; BP diastolic 60–72; PULSE 49–80; RESP 18–20
--- NOTE | 2016-07-11 02:13 | CONS ---
DATE OF ADMISSION: 07/09/2016 DATE OF CONSULTATION: 07/11/2016 TYPE OF CONSULTATION: Neurology. Thank you, Dr. Rene, for your kind referral for evaluation of encephalopathy. HISTORY OF PRESENT ILLNESS: The patient is a 71-year-old gentleman with history of hypertension, be nign prostatic hypertrophy, COPD, dementia, dyslipidemia, recent UTI, and worsening of metabolic enc ephalopathy treated at [facility], also acute stroke. According to history and phys ical examination note that hospitalization was about a month ago, at the end 05/2016. Patient was admitted because a routine blood test showed elevated BUN and creatinine. The patient's labs; BUN 95, creatinine 4.26 yesterday; today 97, creatinine 4.28. Sodium 148 today, potassium 3. 4, chloride 121, bicarbonate 20, total protein 5.5, albumin 2.1. Normal CK. WBC count 18.5 today, hemoglobin 10, hematocrit 32, neutrophils 90. Blood gas today showed pH of 7.431, pCO2 of 31, pO2 o f 69 on nasal cannula. PT 15, PTT 34. Urinalysis: Trace of leukocyte esterase, 3+ hemoglobin, 2+ protein. Chest CT scan shows patchy bibasilar consolidation; maybe atelectasis, severe diffuse emphysematous disease, small bilateral pleural effusion. Abdominal and pelvic CT scan shows a partially-obstructe d colonic mass or neoplasm at rectosigmoid junction. The patient had a colonoscopy up to midtransve rse colon, which with the exception of suboptimal preparation, did not show any masses. CURRENT MEDICATIONS 1. Cefepime. 2. Aspirin. 3. Proscar. 4. . 5. Lipitor 40. 6. Zyprexa 5 mg at bedtime. MEDICATIONS PRIOR TO ADMISSION: 1. Atorvastatin. 2. Clonidine. 3. Zestril. 4. Aspirin. 5. Benztropine. 6. Olanzapine 5 mg at bedtime. 7. Trazodone 100 at bedtime. 8. Ambien. 9. Furosemide. 10. Zinc. 11. Protonix. 12. Vitamin C. 13. Finasteride. ALLERGIES: NONE. SOCIAL HISTORY: No alcohol, tobacco, drug use. FAMILY HISTORY: Not known. PHYSICAL EXAMINATION VITAL SIGNS: Temperature 97.5, 74 pulse, 19 respirations, 128/65 blood pressure. GENERAL: Not in acute distress, lying in bed. HEENT: Normocephalic, atraumatic head. NECK: No carotid bruits. No thyromegaly. LUNGS: Clear to auscultation bilaterally. CARDIAC: Normal cardiac rhythm and sounds. ABDOMEN: Soft. EXTREMITIES: No cyanosis, clubbing, or edema. NEUROLOGIC: He is awake, alert, and oriented x1 only. Fluent speech. Present response to visual t hreat bilaterally. Pupils postsurgical on the right, about 4 mm and sluggishly reactive, about 3 mm on the left, extraocular movements intact without nystagmus. Symmetrical face, preserved facial st rength and sensation. Tongue is in midline. Motor strength examination somewhat limited, the patie nt not fully cooperative, but moves all extremities, possibly slight weakness in the left upper extr emity, maybe 4/5. Sensory examination grossly intact. Deep tendon reflexes 2+ upper extremities, a bsent in lower extremities. Upgoing toes bilaterally. Coordination preserved on psxdqd-zy-raitly t esting. No dysmetria or tremor. According to the chart, the patient midday today was more lethargic. IMPRESSION AND PLAN: Encephalopathy. The patient has leukocytosis with left shift, possible pneumo sallie, dehydration/acute renal failure, baseline dementia, history of recent stroke according to the brandon hilliard. For further evaluation of encephalopathy, I will obtain CT scan of the head, as well as EEG. Continue current treatment. Thank you very much for this interesting consultation. Dictated By: JAYE KNAPP/MEAGAN Conf#: [id number] DID#: [id number]
[2016-07-11] MEDS: SOD CHLORIDE 0.45% 1,000 ML IV SCH ×3 (02:30→20:56)
[2016-07-11] MEDS: BENZTROPINE 1 MG TAB PO SCH ×2 (09:09→20:55)
[2016-07-11] MEDS: ASPIRIN 81 MG TAB PO SCH (09:09)
[2016-07-11] MEDS: PANTOPRAZOLE (EC) 40 MG TAB PO SCH (09:09)
[2016-07-11] MEDS: CEFEPIME 1GM/50 ML (PMX) 50 ML IVPB SCH (09:10)
[2016-07-11] MEDS: MULTIVITAMINS THERAPEUTIC TAB PO SCH (09:10)
[2016-07-11] MEDS: ZINC SULFATE 220 MG CAP PO SCH (09:10)
[2016-07-11] MEDS: FINASTERIDE 5 MG TAB PO SCH (09:10)
[2016-07-11] MEDS: COLLAGENASE 30 GM TUBE TOP SCH (09:10)
--- NOTE | 2016-07-11 09:43 | PQ ---
Date/Time of Note Date/Time of Note DATE: 07/11/16 TIME: 09:36 Physician Query Documentation Clarification Dear Dr. Tyler, A review of the medical record found a need for documentation clarification. IMPRESSION AND PLAN: Encephalopathy. The patient has leukocytosis with left shift, possible pneumonia, dehydration/ acute renal failure, baseline dementia, history of recent stroke according to the chart. For further evaluation of encephalopathy, I will obtain CT scan of the head, as well as EEG. Continue current treatment. Based on your medical judgment, can you further clarify the type of encephalopathy? To facilitate accurate and complete coding, please martha ( x ) the suspected diagnosis that apply: ( ) Other encephalopathy ( ) Metabolic Encephalopathy ( x ) Toxic -Metabolic Encephalopathy ( ) Other Please provide your response by clicking edit document, making your choice ( x ), click ok/save and finally click sign. You may also document your response on your progress notes. Thank you for your time. Khurram Orantes RN, BSN, CCS, CCDS Clinical Inspector [employer] Information Management, CD[employer] and Coding Services [phone] Room # 1525 - Coding [address]~ [address] KHURRAM ORANTES July 11, 2016 09:43 JAYE TYLER MD July 11, 2016 10:42
--- NOTE | 2016-07-11 10:39 | RADRPT ---
PROCEDURE: CT brain without contrast CLINICAL INDICATION: Encephalopathy TECHNIQUE: CT of the brain without contrast performed on a multidetector CT scanner, with multiplan ar reformats. One or more of the following dose reduction techniques were used: Automated exposure control, adjustment in mA and / or kV according to patient size, use of iterative reconstructive geetha hnique. CTDIvol = 43/45 mGy; DLP = 540/90 mGy-cm. COMPARISON: None available FINDINGS: No acute intracranial hemorrhage is identified. No extra-axial fluid collection is seen. There is no mass effect. No midline shift is identified. Ventricles and sulci are mild to moderately enlarged compatible with volume loss. There are moderate to severe areas of hypodensity in the periventricular - deep white matter which a re nonspecific but suggestive of chronic small vessel ischemic changes. Garnica-white differentiation is preserved. Partly sella is noted. Atherosclerotic calcifications of the intracranial internal carotid arteries are noted. The calvarium, skull base are intact. Chronic healed post-traumatic deformity of the left zygomatic arch is seen. Mucosal thickening versus retention cyst in the right sphenoid sinus. IMPRESSION: 1. No evidence of acute intracranial pathology. 2. Mild to moderate volume loss, with moderate to severe chronic small vessel ischemic changes. RPTAT: VV .Reinaldo Oswald MD, Date Time Electronically viewed and signed by .Reinaldo Oswald MD, on 07/11/2016 10:39 .O/
[2016-07-11 12:10] LABS: ADD SCAN DIFF NO
[2016-07-11 12:15] LABS: BASOPHILS % 0.1 % (0.0-2.0); EOSINOPHILS # 0.3 10^3/ul (0.0-0.5); EOSINOPHILS % 2.1 % (0.0-7.0); HEMATOCRIT 29.2 % (42.0-52.0); HEMOGLOBIN 9.4 g/dl (14.0-18.0); LYMPHOCYTES % 7.6 % (15.0-51.0); MEAN CORPUSCULAR HEMOGLOBIN 29.9 pg (29.0-33.0); MEAN CORPUSCULAR HGB CONC 32.2 g/dl (32.0-37.0); MEAN PLATELET VOLUME 9.9 fl (7.4-10.4); MONOCYTE # 0.6 10^3/ul (0.3-0.9); MONOCYTES % 4.5 % (0.0-11.0); NEUTROPHIL # 10.7 10^3/ul (1.6-7.5); NEUTROPHILS % 85.1 % (39.0-77.0); PLATELET COUNT 264 10^3/UL (140-415); RED BLOOD COUNT 3.14 10^6/ul (4.70-6.10); RED CELL DISTRIBUTION WIDTH 13.7 % (11.5-14.5); WHITE BLOOD COUNT 12.6 10^3/ul (4.8-10.8)
[2016-07-11 12:35] LABS: CALCIUM 7.8 mg/dl (8.4-10.2); CREATININE 4.31 mg/dl (0.61-1.24); POTASSIUM 3.4 mmol/L (3.5-5.1)
[2016-07-11 13:16] LABS: ANA SCREEN NEGATIVE (NEGATIVE)
--- NOTE | 2016-07-11 14:36 | CONS ---
Date/Time of Note Date/Time of Note DATE: 07/11/16 TIME: 14:35 Assessment/Plan Assessment/Plan Chief Complaint/Hosp Course 1. Acute kidney injury, Pre- Renal R/o ATN, [place] no signs of obstructive Uropathy, Hx of BPH.- Non Oliguric 2. Hypertension. Normotensive at this time. 3. Chronic obstructive pulmonary disease. 4. Benign prostatic hypertrophy. 5. Loculated pleural effusion. 6. Multiple decubiti 7. Cerebrovascular accident. 8. Dyslipidemia. 9. Dementia with behavioral disturbance. 10. Metabolic Acidosis-stable Likely ATN Pt is non oliguric, K ok Na stable, on D5 1/2 NS Cont current treatment and IVFs Cr stable, Likely plateau No acute indication for HD at this time Problems: Consultation Date/Type/Reason Admit Date/Time July 09, 2016 at 12:24 Initial Consult Date Type of Consultation: Renal Referring Provider: RONNIE PATEL MD 24 HR Interval Summary Free Text/Dictation Improved mentation. Good UO [place], Dark Constitutional: No requiring O2 Exam/Review of Systems Vital Signs Vitals Vital Signs Date Time Temp Pulse Resp B/P Pulse Ox O2 Delivery O2 Flow Rate FiO2 07/11/16 12:11 73 07/11/16 11:51 98.0 18 138/60 98 07/11/16 09:09 Nasal Cannula 2.0 Intake and Output 07/10/16 07/10/16 07/11/16 15:00 23:00 07:00 Intake Total 100 ml 500 ml 1100 ml Output Total 600 ml 500 ml Balance 100 ml -100 ml 600 ml Exam Constitutional: alert, No distress ENMT: mucosa pink and moist Neck: No jvd Respiratory: No diminished breath sounds, No labored breathing Cardiovascular: regular rate and rhythm, No edema Gastrointestinal: distended, non-tender, soft, No rebound or guarding Neurological: No confused, No lethargic Skin: No diaphoresis Results Result Diagram: 07/11/16 1201 07/11/16 1201 Results 24 hrs Laboratory Tests Test 07/10/16 20:15 07/11/16 12:01 Creatine Kinase 69 Creatine Kinase Index 1.5 Creatinine Kinase MB (Mass) 1.05 Troponin I 0.062 White Blood Count 12.6 #H Red Blood Count 3.14 L Hemoglobin 9.4 L Hematocrit 29.2 L Mean Corpuscular Volume 93.0 Mean Corpuscular Hemoglobin 29.9 Mean Corpuscular Hemoglobin Concent 32.2 Red Cell Distribution Width 13.7 Platelet Count 264 Mean Platelet Volume 9.9 Neutrophils % 85.1 H Lymphocytes % 7.6 L Monocytes % 4.5 Eosinophils % 2.1 Basophils % 0.1 Nucleated Red Blood Cells % 0.0 Neutrophils # 10.7 H Lymphocytes # 1.0 Monocytes # 0.6 Eosinophils # 0.3 Basophils # 0.0 Nucleated Red Blood Cells # 0.0 Sodium Level 148 H Potassium Level 3.4 L Chloride Level 120 H Carbon Dioxide Level 20 L Anion Gap 11 Blood Urea Nitrogen 101 H Creatinine 4.31 H Glucose Level 89 Calcium Level 7.8 L Medications Medications Current Medications Sodium Chloride (1/2 NS) 1,000 ml @ 100 mls/hr Q10H IV Last administered on 04:47; Admin Dose 100 MLS/HR; Start 07/09/16 at 20:30 Acetaminophen (Tylenol Tab) 500 mg Q6H PRN PO PAIN AND OR ELEVATED TEMP; Start 07/09/16 at 20:30 Ondansetron HCl (Zofran Inj) 4 mg Q6H PRN IV NAUSEA AND/OR VOMITING; Start at 20:30 Zolpidem Tartrate (Ambien) 5 mg HS PRN PO INSOMNIA; Start 07/09/16 at 20:30 Aspirin (Aspirin) 81 mg DAILY PO Last administered on 07/11/16 09:09; Admin Dose 81 MG; Start 07/10/16 at 09:00 Atorvastatin Calcium (Lipitor) 40 mg QHS PO Last administered on 07/09/16 22: 15; Admin Dose 40 MG; Start 07/09/16 at 21:00 Benztropine Mesylate (Cogentin) 1 mg BID PO Last administered on 07/11/16 09: 09; Admin Dose 1 MG; Start 07/09/16 at 21:00 Clonidine (Catapres) 0.1 mg Q6 PRN PO SBP ABOVE 160; Start 07/09/16 at 20:30 Finasteride (Proscar) 5 mg DAILY PO Last administered on 07/11/16 09:10; Admin Dose 5 MG; Start 07/10/16 at 09:00 Acetaminophen/ Hydrocodone Bitart ([place] (5/325)) 1 tab Q4 PRN PO SEVERE PAIN LEVEL 7-10; Start 07/09/16 at 20:30 Latanoprost (Xalatan) 1 drop QHS BOTH EYES Last administered on 07/10/16 21:10 ; Admin Dose 1 DROP; Start 07/09/16 at 21:00 Multivitamins Therapeutic (Theragran) 1 tab DAILY PO Last administered on 09:10; Admin Dose 1 TAB; Start 07/10/16 at 09:00 Olanzapine (Zyprexa) 5 mg QHS PO Last administered on 07/09/16 22:15; Admin Dose 5 MG; Start 07/09/16 at 21:00 Zinc Sulfate 220 mg 220 mg DAILY PO Last administered on 07/11/16 09:10; Admin Dose 220 MG; Start 07/10/16 at 09:00 Cefepime HCl (Maxipime 1gm/50 ml (Pmx)) 50 ml @ 100 mls/hr Q24H IVPB Last administered on 07/11/16 09:10; Admin Dose 100 MLS/HR; Start 07/10/16 at 10:00 Acetaminophen (Tylenol Supp) 650 mg Q6H PRN [place] ELEVATED TEMPERATURE Last administered on 07/10/16 09:51; Admin Dose 650 MG; Start 07/10/16 at 09:30 Collagenase (Santyl) 1 applic DAILY TOP Last administered on 07/11/16 09:10; Admin Dose 1 APPLIC; Start 07/10/16 at 14:00 TACOS GREEN MD July 11, 2016 14:36
--- NOTE | 2016-07-11 14:41 | PN ---
Date/Time of Note Date/Time of Note DATE: 07/11/16 TIME: 14:33 Assessment/Plan VTE Prophylaxis VTE Prophylaxis Intervention: SCD's Lines/Catheters IV [facility] Type [facility] Peripheral IV Urinary Cath still in place: Yes Reason Cath still needed: urinary retention Assessment/Plan Chief Complaint/Hosp Course Patient is awake alert, pleasantly confused, dark urine Via [place], remains hemodynamically stable. Problems: Assessment/Plan - Acute kidney injury, etiology unknown. Dr. Keating is following in nephrology consultation. - Acute metabolic encephalopathy, resolving. - Hypertension. - Chronic obstructive pulmonary disease. - Benign prostatic hypertrophy. Continue Flomax. - Loculated pleural effusion. Continue to monitor chest x-ray. - Multiple decubitus ulcers. Continue current wound care - Acute cerebrovascular accident. Continue aspirin. - Dyslipidemia. Continue Lipitor. - Dementia with behavioral disturbance. Continue Zyprexa. Exam/Review of Systems Vital Signs Vitals Vital Signs Date Time Temp Pulse Resp B/P Pulse Ox O2 Delivery O2 Flow Rate FiO2 07/11/16 12:11 73 07/11/16 11:51 98.0 18 138/60 98 07/11/16 09:09 Nasal Cannula 2.0 Intake and Output 07/10/16 07/10/16 07/11/16 15:00 23:00 07:00 Intake Total 100 ml 500 ml 1100 ml Output Total 600 ml 500 ml Balance 100 ml -100 ml 600 ml Exam Constitutional: alert, frail Psych: confusion Neck: supple Respiratory: clear to auscultation Cardiovascular: nl pulses, regular rate and rhythm Gastrointestinal: non-tender, soft Genitourinary - Male: other Skin: other (Both wounds) Results Result Diagram: 07/11/16 1201 07/11/16 1201 Results 24 hrs Laboratory Tests Test 07/10/16 20:15 07/11/16 12:01 Creatine Kinase 69 Creatine Kinase Index 1.5 Creatinine Kinase MB (Mass) 1.05 Troponin I 0.062 White Blood Count 12.6 #H Red Blood Count 3.14 L Hemoglobin 9.4 L Hematocrit 29.2 L Mean Corpuscular Volume 93.0 Mean Corpuscular Hemoglobin 29.9 Mean Corpuscular Hemoglobin Concent 32.2 Red Cell Distribution Width 13.7 Platelet Count 264 Mean Platelet Volume 9.9 Neutrophils % 85.1 H Lymphocytes % 7.6 L Monocytes % 4.5 Eosinophils % 2.1 Basophils % 0.1 Nucleated Red Blood Cells % 0.0 Neutrophils # 10.7 H Lymphocytes # 1.0 Monocytes # 0.6 Eosinophils # 0.3 Basophils # 0.0 Nucleated Red Blood Cells # 0.0 Sodium Level 148 H Potassium Level 3.4 L Chloride Level 120 H Carbon Dioxide Level 20 L Anion Gap 11 Blood Urea Nitrogen 101 H Creatinine 4.31 H Glucose Level 89 Calcium Level 7.8 L Medications Medications Current Medications Sodium Chloride (1/2 NS) 1,000 ml @ 100 mls/hr Q10H IV Last administered on 04:47; Admin Dose 100 MLS/HR; Start 07/09/16 at 20:30 Acetaminophen (Tylenol Tab) 500 mg Q6H PRN PO PAIN AND OR ELEVATED TEMP; Start 07/09/16 at 20:30 Ondansetron HCl (Zofran Inj) 4 mg Q6H PRN IV NAUSEA AND/OR VOMITING; Start at 20:30 Zolpidem Tartrate (Ambien) 5 mg HS PRN PO INSOMNIA; Start 07/09/16 at 20:30 Aspirin (Aspirin) 81 mg DAILY PO Last administered on 07/11/16 09:09; Admin Dose 81 MG; Start 07/10/16 at 09:00 Atorvastatin Calcium (Lipitor) 40 mg QHS PO Last administered on 07/09/16 22: 15; Admin Dose 40 MG; Start 07/09/16 at 21:00 Benztropine Mesylate (Cogentin) 1 mg BID PO Last administered on 07/11/16 09: 09; Admin Dose 1 MG; Start 07/09/16 at 21:00 Clonidine (Catapres) 0.1 mg Q6 PRN PO SBP ABOVE 160; Start 07/09/16 at 20:30 Finasteride (Proscar) 5 mg DAILY PO Last administered on 07/11/16 09:10; Admin Dose 5 MG; Start 07/10/16 at 09:00 Acetaminophen/ Hydrocodone Bitart ([place] (5/325)) 1 tab Q4 PRN PO SEVERE PAIN LEVEL 7-10; Start 07/09/16 at 20:30 Latanoprost (Xalatan) 1 drop QHS BOTH EYES Last administered on 5/25/17at 21:10 ; Admin Dose 1 DROP; Start 07/09/16 at 21:00 Multivitamins Therapeutic (Theragran) 1 tab DAILY PO Last administered on 09:10; Admin Dose 1 TAB; Start 07/10/16 at 09:00 Olanzapine (Zyprexa) 5 mg QHS PO Last administered on 07/09/16 22:15; Admin Dose 5 MG; Start 07/09/16 at 21:00 Zinc Sulfate 220 mg 220 mg DAILY PO Last administered on 07/11/16 09:10; Admin Dose 220 MG; Start 07/10/16 at 09:00 Cefepime HCl (Maxipime 1gm/50 ml (Pmx)) 50 ml @ 100 mls/hr Q24H IVPB Last administered on 07/11/16 09:10; Admin Dose 100 MLS/HR; Start 07/10/16 at 10:00 Acetaminophen (Tylenol Supp) 650 mg Q6H PRN [place] ELEVATED TEMPERATURE Last administered on 07/10/16 09:51; Admin Dose 650 MG; Start 07/10/16 at 09:30 Collagenase (Santyl) 1 applic DAILY TOP Last administered on 07/11/16 09:10; Admin Dose 1 APPLIC; Start 07/10/16 at 14:00 ALE MCCONNELL July 11, 2016 14:41
--- NOTE | 2016-07-11 14:53 | CONS ---
Date/Time of Note Date/Time of Note DATE: 07/11/16 TIME: 14:53 Assessment/Plan Assessment/Plan Chief Complaint/Hosp Course patient seen and examined. full note to follow Problems: Consultation Date/Type/Reason Admit Date/Time July 09, 2016 at 12:24 Initial Consult Date Type of Consultation: id Referring Provider: RONNIE PATEL MD Exam/Review of Systems Vital Signs Vitals Vital Signs Date Time Temp Pulse Resp B/P Pulse Ox O2 Delivery O2 Flow Rate FiO2 07/11/16 12:11 73 07/11/16 11:51 98.0 18 138/60 98 07/11/16 09:09 Nasal Cannula 2.0 Intake and Output 07/10/16 07/10/16 07/11/16 15:00 23:00 07:00 Intake Total 100 ml 500 ml 1100 ml Output Total 600 ml 500 ml Balance 100 ml -100 ml 600 ml Results Result Diagram: 07/11/16 1201 07/11/16 1201 Results 24 hrs Laboratory Tests Test 07/10/16 20:15 07/11/16 12:01 Creatine Kinase 69 Creatine Kinase Index 1.5 Creatinine Kinase MB (Mass) 1.05 Troponin I 0.062 White Blood Count 12.6 #H Red Blood Count 3.14 L Hemoglobin 9.4 L Hematocrit 29.2 L Mean Corpuscular Volume 93.0 Mean Corpuscular Hemoglobin 29.9 Mean Corpuscular Hemoglobin Concent 32.2 Red Cell Distribution Width 13.7 Platelet Count 264 Mean Platelet Volume 9.9 Neutrophils % 85.1 H Lymphocytes % 7.6 L Monocytes % 4.5 Eosinophils % 2.1 Basophils % 0.1 Nucleated Red Blood Cells % 0.0 Neutrophils # 10.7 H Lymphocytes # 1.0 Monocytes # 0.6 Eosinophils # 0.3 Basophils # 0.0 Nucleated Red Blood Cells # 0.0 Sodium Level 148 H Potassium Level 3.4 L Chloride Level 120 H Carbon Dioxide Level 20 L Anion Gap 11 Blood Urea Nitrogen 101 H Creatinine 4.31 H Glucose Level 89 Calcium Level 7.8 L Medications Medications Current Medications Sodium Chloride (1/2 NS) 1,000 ml @ 100 mls/hr Q10H IV Last administered on t 04:47; Admin Dose 100 MLS/HR; Start 07/09/16 at 20:30 Acetaminophen (Tylenol Tab) 500 mg Q6H PRN PO PAIN AND OR ELEVATED TEMP; Start 07/09/16 at 20:30 Ondansetron HCl (Zofran Inj) 4 mg Q6H PRN IV NAUSEA AND/OR VOMITING; Start at 20:30 Zolpidem Tartrate (Ambien) 5 mg HS PRN PO INSOMNIA; Start 07/09/16 at 20:30 Aspirin (Aspirin) 81 mg DAILY PO Last administered on 07/11/16 09:09; Admin Dose 81 MG; Start 07/10/16 at 09:00 Atorvastatin Calcium (Lipitor) 40 mg QHS PO Last administered on 07/09/16 22: 15; Admin Dose 40 MG; Start 07/09/16 at 21:00 Benztropine Mesylate (Cogentin) 1 mg BID PO Last administered on 07/11/16 09: 09; Admin Dose 1 MG; Start 07/09/16 at 21:00 Clonidine (Catapres) 0.1 mg Q6 PRN PO SBP ABOVE 160; Start 07/09/16 at 20:30 Finasteride (Proscar) 5 mg DAILY PO Last administered on 07/11/16 09:10; Admin Dose 5 MG; Start 07/10/16 at 09:00 Acetaminophen/ Hydrocodone Bitart ([place] (5/325)) 1 tab Q4 PRN PO SEVERE PAIN LEVEL 7-10; Start 07/09/16 at 20:30 Latanoprost (Xalatan) 1 drop QHS BOTH EYES Last administered on 07/10/16 21:10 ; Admin Dose 1 DROP; Start 07/09/16 at 21:00 Multivitamins Therapeutic (Theragran) 1 tab DAILY PO Last administered on 09:10; Admin Dose 1 TAB; Start 07/10/16 at 09:00 Olanzapine (Zyprexa) 5 mg QHS PO Last administered on 07/09/16 22:15; Admin Dose 5 MG; Start 07/09/16 at 21:00 Zinc Sulfate 220 mg 220 mg DAILY PO Last administered on 07/11/16 09:10; Admin Dose 220 MG; Start 07/10/16 at 09:00 Cefepime HCl (Maxipime 1gm/50 ml (Pmx)) 50 ml @ 100 mls/hr Q24H IVPB Last administered on 07/11/16 09:10; Admin Dose 100 MLS/HR; Start 07/10/16 at 10:00 Acetaminophen (Tylenol Supp) 650 mg Q6H PRN [place] ELEVATED TEMPERATURE Last administered on 07/10/16 09:51; Admin Dose 650 MG; Start 07/10/16 at 09:30 Collagenase (Santyl) 1 applic DAILY TOP Last administered on 07/11/16 09:10; Admin Dose 1 APPLIC; Start 07/10/16 at 14:00 ALVA GEE MD July 11, 2016 14:53
[2016-07-11] MEDS: LATANOPROST 0.005% 2.5 ML OPH BOTH EYES SCH (20:56)
[2016-07-11] MEDS: ATORVASTATIN 40 MG TAB PO SCH (20:56)
[2016-07-11] MEDS: OLANZAPINE 5 MG TAB PO SCH (20:56)
[2016-07-12] VITALS (11 sets, daily range): BP systolic 141–175; BP diastolic 64–77; PULSE 58–87; RESP 18–20
[2016-07-12] MEDS: SOD CHLORIDE 0.45% 1,000 ML IV SCH ×2 (06:37→17:48)
[2016-07-12 06:57] LABS: ADD SCAN DIFF NO
[2016-07-12 07:06] LABS: EOSINOPHILS # 0.4 10^3/ul (0.0-0.5); EOSINOPHILS % 3.7 % (0.0-7.0); HEMATOCRIT 30.1 % (42.0-52.0); HEMOGLOBIN 9.6 g/dl (14.0-18.0); LYMPHOCYTES # 1.2 10^3/ul (0.8-2.9); MEAN CORPUSCULAR HEMOGLOBIN 29.8 pg (29.0-33.0); MEAN CORPUSCULAR HGB CONC 31.9 g/dl (32.0-37.0); MEAN CORPUSCULAR VOLUME 93.5 fl (82.0-101.0); MEAN PLATELET VOLUME 9.9 fl (7.4-10.4); MONOCYTE # 0.7 10^3/ul (0.3-0.9); MONOCYTES % 5.5 % (0.0-11.0); NEUTROPHIL # 9.6 10^3/ul (1.6-7.5); NEUTROPHILS % 80.3 % (39.0-77.0); PLATELET COUNT 290 10^3/UL (140-415); RED BLOOD COUNT 3.22 10^6/ul (4.70-6.10); RED CELL DISTRIBUTION WIDTH 13.7 % (11.5-14.5); WHITE BLOOD COUNT 11.9 10^3/ul (4.8-10.8)
[2016-07-12 07:45] LABS: POTASSIUM 3.2 mmol/L (3.5-5.1)
[2016-07-12 07:48] LABS: CREATININE 4.29 mg/dl (0.61-1.24)
[2016-07-12 07:49] LABS: CALCIUM 7.5 mg/dl (8.4-10.2)
[2016-07-12] MEDS ORDERED: PEG/ELECTROLYTES 4L BTL PO ONE (08:00)
--- NOTE | 2016-07-12 09:23 | CONS ---
Date/Time of Note Date/Time of Note DATE: 07/12/16 TIME: 09:17 Assessment/Plan Assessment/Plan Chief Complaint/Hosp Course 1. possible hcap 2. dementia 3. ams 4. hx of copd 5. hx of cva R: cont. cefepime--probably to complete empiric 7 day course influenza screen sputum gstain/cx procalc probiotics will follow closely with you. thank you Dr. Rene and LING Kamara Problems: Consultation Date/Type/Reason Admit Date/Time July 09, 2016 at 12:24 Date of Consultation: July 11, 2016 Type of Consultation: id Reason for Consultation abx recommendations Referring Provider: RONNIE RENE MD Hx of Present Illness 71 yo male with pmh of dementia, uti, cva, copd, bph, [facility]. He was noted to have e/o arf and transferred to [facility]. There was concern for possible hcap and he has been on empiric cefepime. Patient is unable to provide a reliable hx. His leukocytosis has improved Constitutional: No chills, No diaphoresis, No disoriented, No febrile, No improved, No no complaints, No other, No poor po, No requiring IVF, No requiring O2 Eyes: No discharge, No no complaints, No other, No pain, No redness, No visual change ENT: No bleeding, No congestion, No discharge, No dysphagia, No no complaints, No other, No pain, No sore throat Respiratory: No cough, No no complaints, No other, No pain, No pleuritic pain, No shortness of breath, No sputum, No wheezing Cardiovascular: No chest pain, No edema, No lightheadedness, No no complaints, No orthopenea, No other, No palpitations, No paroxysmal nocturnal dyspnea Gastrointestinal: No blood, No constipation, No decreased appetite, No diarrhea , No flatus, No nausea, No no complaints, No other, No pain, No passing stool, No vomiting Genitourinary: No bleeding, No discharge, No dysuria, No flank pain, No hematuria, No no complaints, No other Musculoskeletal: No back pain, No bone/joint pain, No neck pain, No no complaints, No other, No restricted range of motion, No swelling Skin: No bruising, No erythema, No laceration, No no complaints, No other, No pruritis, No rash, No skin lesions Neurologic: No confusion, No dizziness, No focal-weakness, No headache, No no complaints, No other, No seizure, No syncope Endocrine: No dry skin, No no complaints, No other, No polydypsia, No polyuria , No temp intolerance Lymphatic: No adenopathy, No lymphadema, No no complaints, No other, No tender nodes Psychological: confusion, No anxiety, No depression, No nl mood/affect, No no complaints, No other, No suicidal Past Medical History Medical History: hypertension, other (COPD) Past Surgical History Past Surgical Hx: other Social History Alcohol Use: none Smoking Status: Never smoker Drug Use: none Exam/Review of Systems Vital Signs Vitals Vital Signs Date Time Temp Pulse Resp B/P Pulse Ox O2 Delivery O2 Flow Rate FiO2 07/12/16 08:43 66 07/12/16 06:49 98.2 20 145/70 95 07/11/16 20:00 Nasal Cannula 2.0 Intake and Output 07/11/16 07/11/16 07/12/16 15:00 23:00 07:00 Intake Total 50 ml 1600 ml 1340 ml Output Total 1600 ml 1700 ml Balance 50 ml 0 ml -360 ml Exam Constitutional: alert, oriented, well developed Psych: nl mood/affect, no complaints Head: atraumatic, normocephalic Eyes: EOMI, PERRL, nl conjunctiva, nl lids, nl sclera ENMT: nl external ears & nose, nl lips & teeth, nl nasal mucosa & septum Respiratory: clear to auscultation, normal air movement Cardiovascular: nl pulses, regular rate and rhythm Gastrointestinal: nl liver, spleen, non-tender, soft Musculoskeletal: nl extremities to inspection, nl gait and stance Results Result Diagram: 07/12/1635 07/12/16 0635 Results 24 hrs Laboratory Tests Test 07/11/16 12:01 07/12/16 06:35 White Blood Count 12.6 #H 11.9 H Red Blood Count 3.14 L 3.22 L Hemoglobin 9.4 L 9.6 L Hematocrit 29.2 L 30.1 L Mean Corpuscular Volume 93.0 93.5 Mean Corpuscular Hemoglobin 29.9 29.8 Mean Corpuscular Hemoglobin Concent 32.2 31.9 L Red Cell Distribution Width 13.7 13.7 Platelet Count 264 290 Mean Platelet Volume 9.9 9.9 Neutrophils % 85.1 H 80.3 H Lymphocytes % 7.6 L 10.0 L Monocytes % 4.5 5.5 Eosinophils % 2.1 3.7 Basophils % 0.1 0.0 Nucleated Red Blood Cells % 0.0 0.0 Neutrophils # 10.7 H 9.6 H Lymphocytes # 1.0 1.2 Monocytes # 0.6 0.7 Eosinophils # 0.3 0.4 Basophils # 0.0 0.0 Nucleated Red Blood Cells # 0.0 0.0 Sodium Level 148 H 149 H Potassium Level 3.4 L 3.2 L Chloride Level 120 H 119 H Carbon Dioxide Level 20 L 20 L Anion Gap 11 13 Blood Urea Nitrogen 101 H 102 H Creatinine 4.31 H 4.29 H Glucose Level 89 83 Calcium Level 7.8 L 7.5 L Medications Medications Current Medications Sodium Chloride (1/2 NS) 1,000 ml @ 100 mls/hr Q10H IV Last administered on 06:37; Admin Dose 100 MLS/HR; Start 07/09/16 at 20:30 Acetaminophen (Tylenol Tab) 500 mg Q6H PRN PO PAIN AND OR ELEVATED TEMP; Start 07/09/16 at 20:30 Ondansetron HCl (Zofran Inj) 4 mg Q6H PRN IV NAUSEA AND/OR VOMITING; Start at 20:30 Zolpidem Tartrate (Ambien) 5 mg HS PRN PO INSOMNIA; Start 07/09/16 at 20:30 Aspirin (Aspirin) 81 mg DAILY PO Last administered on 07/11/16 09:09; Admin Dose 81 MG; Start 07/10/16 at 09:00 Atorvastatin Calcium (Lipitor) 40 mg QHS PO Last administered on 07/11/16 20: 56; Admin Dose 40 MG; Start 07/09/16 at 21:00 Benztropine Mesylate (Cogentin) 1 mg BID PO Last administered on 07/11/16 20: 55; Admin Dose 1 MG; Start 07/09/16 at 21:00 Clonidine (Catapres) 0.1 mg Q6 PRN PO SBP ABOVE 160; Start 07/09/16 at 20:30 Finasteride (Proscar) 5 mg DAILY PO Last administered on 07/11/16 09:10; Admin Dose 5 MG; Start 07/10/16 at 09:00 Acetaminophen/ Hydrocodone Bitart ([place] (5/325)) 1 tab Q4 PRN PO SEVERE PAIN LEVEL 7-10; Start 07/09/16 at 20:30 Latanoprost (Xalatan) 1 drop QHS BOTH EYES Last administered on 07/11/16 20:56 ; Admin Dose 1 DROP; Start 07/09/16 at 21:00 Multivitamins Therapeutic (Theragran) 1 tab DAILY PO Last administered on 09:10; Admin Dose 1 TAB; Start 07/10/16 at 09:00 Olanzapine (Zyprexa) 5 mg QHS PO Last administered on 07/11/16 20:56; Admin Dose 5 MG; Start 07/09/16 at 21:00 Zinc Sulfate 220 mg 220 mg DAILY PO Last administered on 07/11/16 09:10; Admin Dose 220 MG; Start 07/10/16 at 09:00 Cefepime HCl (Maxipime 1gm/50 ml (Pmx)) 50 ml @ 100 mls/hr Q24H IVPB Last administered on 07/11/16 09:10; Admin Dose 100 MLS/HR; Start 07/10/16 at 10:00 Acetaminophen (Tylenol Supp) 650 mg Q6H PRN [place] ELEVATED TEMPERATURE Last administered on 07/10/16 09:51; Admin Dose 650 MG; Start 07/10/16 at 09:30 Collagenase (Santyl) 1 applic DAILY TOP Last administered on 07/11/16 09:10; Admin Dose 1 APPLIC; Start 07/10/16 at 14:00 ALVA GEE MD July 12, 2016 09:22
[2016-07-12] MEDS: ASPIRIN 81 MG TAB PO SCH (10:20)
[2016-07-12] MEDS: BENZTROPINE 1 MG TAB PO SCH ×2 (10:20→21:13)
[2016-07-12] MEDS: FINASTERIDE 5 MG TAB PO SCH (10:21)
[2016-07-12] MEDS: CEFEPIME 1GM/50 ML (PMX) 50 ML IVPB SCH (10:21)
[2016-07-12] MEDS: PANTOPRAZOLE (EC) 40 MG TAB PO SCH (10:21)
[2016-07-12] MEDS: MULTIVITAMINS THERAPEUTIC TAB PO SCH (10:21)
[2016-07-12] MEDS: ZINC SULFATE 220 MG CAP PO SCH (10:21)
[2016-07-12] MEDS: COLLAGENASE 30 GM TUBE TOP SCH (10:22)
--- NOTE | 2016-07-12 12:16 | PN ---
Date/Time of Note Date/Time of Note DATE: 07/12/16 TIME: 12:15 Assessment/Plan VTE Prophylaxis VTE Prophylaxis Intervention: other Assessment/Plan Chief Complaint/Hosp Course cute kidney injury, Pre- Renal R/o ATN, [place] no signs of obstructive Uropathy, Hx of BPH.- Non Oliguric 2. Hypertension. Normotensive at this time. 3. Chronic obstructive pulmonary disease. 4. Benign prostatic hypertrophy. 5. Loculated pleural effusion. 6. Multiple decubiti 7. Cerebrovascular accident. 8. Dyslipidemia. 9. Dementia with behavioral disturbance. 10. Metabolic Acidosis-stable [id number] creat stable non oliguric cont plan Problems: Subjective 24 Hr Interval Summary Eyes: no complaints Respiratory: no complaints Cardiovascular: no complaints Gastrointestinal: no complaints Exam/Review of Systems Vital Signs Vitals Vital Signs Date Time Temp Pulse Resp B/P Pulse Ox O2 Delivery O2 Flow Rate FiO2 07/12/16 11:50 97.7 76 18 175/77 94 07/11/16 20:00 Nasal Cannula 2.0 Intake and Output 07/11/16 07/11/16 07/12/16 15:00 23:00 07:00 Intake Total 50 ml 1600 ml 1340 ml Output Total 1600 ml 1700 ml Balance 50 ml 0 ml -360 ml Exam Constitutional: alert, oriented Eyes: nl conjunctiva ENMT: nl external ears & nose Neck: supple Respiratory: clear to auscultation Cardiovascular: regular rate and rhythm Gastrointestinal: soft Extremities: normal pulses Results Result Diagram: 07/12/16 0635 07/12/16 0635 Results 24 hrs Laboratory Tests Test 07/12/16 06:35 07/12/16 10:30 White Blood Count 11.9 H Red Blood Count 3.22 L Hemoglobin 9.6 L Hematocrit 30.1 L Mean Corpuscular Volume 93.5 Mean Corpuscular Hemoglobin 29.8 Mean Corpuscular Hemoglobin Concent 31.9 L Red Cell Distribution Width 13.7 Platelet Count 290 Mean Platelet Volume 9.9 Neutrophils % 80.3 H Lymphocytes % 10.0 L Monocytes % 5.5 Eosinophils % 3.7 Basophils % 0.0 Nucleated Red Blood Cells % 0.0 Neutrophils # 9.6 H Lymphocytes # 1.2 Monocytes # 0.7 Eosinophils # 0.4 Basophils # 0.0 Nucleated Red Blood Cells # 0.0 Sodium Level 149 H Potassium Level 3.2 L Chloride Level 119 H Carbon Dioxide Level 20 L Anion Gap 13 Blood Urea Nitrogen 102 H Creatinine 4.29 H Glucose Level 83 Calcium Level 7.5 L HIV (1&2) Antibody NEGATIVE Lactic Acid Level 0.7 Medications Medications Current Medications Sodium Chloride (1/2 NS) 1,000 ml @ 100 mls/hr Q10H IV Last administered on 06:37; Admin Dose 100 MLS/HR; Start 07/09/16 at 20:30 Acetaminophen (Tylenol Tab) 500 mg Q6H PRN PO PAIN AND OR ELEVATED TEMP; Start 07/09/16 at 20:30 Ondansetron HCl (Zofran Inj) 4 mg Q6H PRN IV NAUSEA AND/OR VOMITING; Start at 20:30 Zolpidem Tartrate (Ambien) 5 mg HS PRN PO INSOMNIA; Start 07/09/16 at 20:30 Aspirin (Aspirin) 81 mg DAILY PO Last administered on 07/12/16 10:20; Admin Dose 81 MG; Start 07/10/16 at 09:00 Atorvastatin Calcium (Lipitor) 40 mg QHS PO Last administered on 07/11/16 20: 56; Admin Dose 40 MG; Start 07/09/16 at 21:00 Benztropine Mesylate (Cogentin) 1 mg BID PO Last administered on 07/12/16 10: 20; Admin Dose 1 MG; Start 07/09/16 at 21:00 Clonidine (Catapres) 0.1 mg Q6 PRN PO SBP ABOVE 160; Start 07/09/16 at 20:30 Finasteride (Proscar) 5 mg DAILY PO Last administered on 07/12/16 10:21; Admin Dose 5 MG; Start 07/10/16 at 09:00 Acetaminophen/ Hydrocodone Bitart ([place] (5/325)) 1 tab Q4 PRN PO SEVERE PAIN LEVEL 7-10; Start 07/09/16 at 20:30 Latanoprost (Xalatan) 1 drop QHS BOTH EYES Last administered on 07/11/16 20:56 ; Admin Dose 1 DROP; Start 07/09/16 at 21:00 Multivitamins Therapeutic (Theragran) 1 tab DAILY PO Last administered on 10:21; Admin Dose 1 TAB; Start 07/10/16 at 09:00 Olanzapine (Zyprexa) 5 mg QHS PO Last administered on 07/11/16 20:56; Admin Dose 5 MG; Start 07/09/16 at 21:00 Zinc Sulfate 220 mg 220 mg DAILY PO Last administered on 07/12/16 10:21; Admin Dose 220 MG; Start 07/10/16 at 09:00 Cefepime HCl (Maxipime 1gm/50 ml (Pmx)) 50 ml @ 100 mls/hr Q24H IVPB Last administered on 07/12/16 10:21; Admin Dose 100 MLS/HR; Start 07/10/16 at 10:00 Acetaminophen (Tylenol Supp) 650 mg Q6H PRN [place] ELEVATED TEMPERATURE Last administered on 07/10/16 09:51; Admin Dose 650 MG; Start 07/10/16 at 09:30 Collagenase (Santyl) 1 applic DAILY TOP Last administered on 07/12/16 10:22; Admin Dose 1 APPLIC; Start 07/10/16 at 14:00 STEPHAN MELO MD July 12, 2016 12:16
--- NOTE | 2016-07-12 12:23 | PN ---
Date/Time of Note Date/Time of Note DATE: 07/12/16 TIME: 12:23 Assessment/Plan VTE Prophylaxis VTE Prophylaxis Intervention: other Assessment/Plan Chief Complaint/Hosp Course - Acute kidney injury, etiology unknown. Dr. Keating is following in nephrology consultation. - Acute metabolic encephalopathy, resolving. - Hypertension. - Chronic obstructive pulmonary disease. - Benign prostatic hypertrophy. Continue Flomax. - Loculated pleural effusion. Continue to monitor chest x-ray. - Multiple decubitus ulcers. Continue current wound care - Acute cerebrovascular accident. Continue aspirin. - Dyslipidemia. Continue Lipitor. - Dementia with behavioral disturbance. Continue Zyprexa. Problems: Subjective 24 Hr Interval Summary Free Text/Dictation Patient appears confused but has no acute complaints Exam/Review of Systems Vital Signs Vitals Vital Signs Date Time Temp Pulse Resp B/P Pulse Ox O2 Delivery O2 Flow Rate FiO2 07/12/16 11:50 97.7 76 18 175/77 94 07/11/16 20:00 Nasal Cannula 2.0 Intake and Output 07/11/16 07/11/16 07/12/16 15:00 23:00 07:00 Intake Total 50 ml 1600 ml 1340 ml Output Total 1600 ml 1700 ml Balance 50 ml 0 ml -360 ml Exam Constitutional: well developed Head: atraumatic, normocephalic Neck: supple Cardiovascular: regular rate and rhythm Gastrointestinal: non-tender, soft Extremities: normal pulses Results Result Diagram: 07/12/16 0635 07/12/16 0635 Results 24 hrs Laboratory Tests Test 07/12/16 06:35 07/12/16 10:30 White Blood Count 11.9 H Red Blood Count 3.22 L Hemoglobin 9.6 L Hematocrit 30.1 L Mean Corpuscular Volume 93.5 Mean Corpuscular Hemoglobin 29.8 Mean Corpuscular Hemoglobin Concent 31.9 L Red Cell Distribution Width 13.7 Platelet Count 290 Mean Platelet Volume 9.9 Neutrophils % 80.3 H Lymphocytes % 10.0 L Monocytes % 5.5 Eosinophils % 3.7 Basophils % 0.0 Nucleated Red Blood Cells % 0.0 Neutrophils # 9.6 H Lymphocytes # 1.2 Monocytes # 0.7 Eosinophils # 0.4 Basophils # 0.0 Nucleated Red Blood Cells # 0.0 Sodium Level 149 H Potassium Level 3.2 L Chloride Level 119 H Carbon Dioxide Level 20 L Anion Gap 13 Blood Urea Nitrogen 102 H Creatinine 4.29 H Glucose Level 83 Calcium Level 7.5 L HIV (1&2) Antibody NEGATIVE Lactic Acid Level 0.7 Medications Medications Current Medications Sodium Chloride (1/2 NS) 1,000 ml @ 100 mls/hr Q10H IV Last administered on 06:37; Admin Dose 100 MLS/HR; Start 07/09/16 at 20:30 Acetaminophen (Tylenol Tab) 500 mg Q6H PRN PO PAIN AND OR ELEVATED TEMP; Start 07/09/16 at 20:30 Ondansetron HCl (Zofran Inj) 4 mg Q6H PRN IV NAUSEA AND/OR VOMITING; Start at 20:30 Zolpidem Tartrate (Ambien) 5 mg HS PRN PO INSOMNIA; Start 07/09/16 at 20:30 Aspirin (Aspirin) 81 mg DAILY PO Last administered on 07/12/16 10:20; Admin Dose 81 MG; Start 07/10/16 at 09:00 Atorvastatin Calcium (Lipitor) 40 mg QHS PO Last administered on 07/11/16 20: 56; Admin Dose 40 MG; Start 07/09/16 at 21:00 Benztropine Mesylate (Cogentin) 1 mg BID PO Last administered on 07/12/16 10: 20; Admin Dose 1 MG; Start 07/09/16 at 21:00 Clonidine (Catapres) 0.1 mg Q6 PRN PO SBP ABOVE 160; Start 07/09/16 at 20:30 Finasteride (Proscar) 5 mg DAILY PO Last administered on 07/12/16 10:21; Admin Dose 5 MG; Start 07/10/16 at 09:00 Acetaminophen/ Hydrocodone Bitart ([place] (5/325)) 1 tab Q4 PRN PO SEVERE PAIN LEVEL 7-10; Start 07/09/16 at 20:30 Latanoprost (Xalatan) 1 drop QHS BOTH EYES Last administered on 07/11/16 20:56 ; Admin Dose 1 DROP; Start 07/09/16 at 21:00 Multivitamins Therapeutic (Theragran) 1 tab DAILY PO Last administered on 10:21; Admin Dose 1 TAB; Start 07/10/16 at 09:00 Olanzapine (Zyprexa) 5 mg QHS PO Last administered on 07/11/16 20:56; Admin Dose 5 MG; Start 07/09/16 at 21:00 Zinc Sulfate 220 mg 220 mg DAILY PO Last administered on 07/12/16 10:21; Admin Dose 220 MG; Start 07/10/16 at 09:00 Cefepime HCl (Maxipime 1gm/50 ml (Pmx)) 50 ml @ 100 mls/hr Q24H IVPB Last administered on 07/12/16 10:21; Admin Dose 100 MLS/HR; Start 07/10/16 at 10:00 Acetaminophen (Tylenol Supp) 650 mg Q6H PRN [place] ELEVATED TEMPERATURE Last administered on 07/10/16 09:51; Admin Dose 650 MG; Start 07/10/16 at 09:30 Collagenase (Santyl) 1 applic DAILY TOP Last administered on 07/12/16 10:22; Admin Dose 1 APPLIC; Start 07/10/16 at 14:00 WINIFRED CHAVEZ July 12, 2016 12:23
--- NOTE | 2016-07-12 17:20 | CONS ---
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 Henderson Problems: Consultation Date/Type/Reason Admit Date/Time July 09, 2016 at 12:24 Initial Consult Date 07/11/16 Type of Consultation: Infectious Disease Referring Provider: RONNIE PATEL MD 24 HR Interval Summary Free Text/Dictation Bowel prep in progress with plans to do colonoscopy tomorrow; unable to collect respiratory culture per d/w nursing staff. Pt denies pain or SOB. ROS limited due to baseline dementia. Exam/Review of Systems Vital Signs Vitals Vital Signs Date Time Temp Pulse Resp B/P Pulse Ox O2 Delivery O2 Flow Rate FiO2 07/12/16 16:12 87 07/12/16 15:41 98.3 18 169/75 95 07/12/16 08:00 Nasal Cannula 2.0 Intake and Output 07/11/16 07/11/16 07/12/16 15:00 23:00 07:00 Intake Total 50 ml 1600 ml 1340 ml Output Total 1600 ml 1700 ml Balance 50 ml 0 ml -360 ml Exam Constitutional: alert, well developed Head: atraumatic, normocephalic Eyes: nl sclera Neck: supple Respiratory: diminished breath sounds Cardiovascular: regular rate and rhythm Gastrointestinal: non-tender, soft Extremities: No cyanosis, No edema Neurological: confused, other (A&Ox1) Skin: nl turgor, other (see nurses note and photo in chart for details - bilateral heel and coccyx decubiti) Results Result Diagram: 07/12/16 0635 07/12/16 0635 Results 24 hrs Laboratory Tests Test 07/12/16 06:35 07/12/16 10:30 White Blood Count 11.9 H Red Blood Count 3.22 L Hemoglobin 9.6 L Hematocrit 30.1 L Mean Corpuscular Volume 93.5 Mean Corpuscular Hemoglobin 29.8 Mean Corpuscular Hemoglobin Concent 31.9 L Red Cell Distribution Width 13.7 Platelet Count 290 Mean Platelet Volume 9.9 Neutrophils % 80.3 H Lymphocytes % 10.0 L Monocytes % 5.5 Eosinophils % 3.7 Basophils % 0.0 Nucleated Red Blood Cells % 0.0 Neutrophils # 9.6 H Lymphocytes # 1.2 Monocytes # 0.7 Eosinophils # 0.4 Basophils # 0.0 Nucleated Red Blood Cells # 0.0 Sodium Level 149 H Potassium Level 3.2 L Chloride Level 119 H Carbon Dioxide Level 20 L Anion Gap 13 Blood Urea Nitrogen 102 H Creatinine 4.29 H Glucose Level 83 Calcium Level 7.5 L HIV (1&2) Antibody NEGATIVE Lactic Acid Level 0.7 Medications Medications Current Medications Sodium Chloride (1/2 NS) 1,000 ml @ 100 mls/hr Q10H IV Last administered on 06:37; Admin Dose 100 MLS/HR; Start 07/09/16 at 20:30 Acetaminophen (Tylenol Tab) 500 mg Q6H PRN PO PAIN AND OR ELEVATED TEMP; Start 07/09/16 at 20:30 Ondansetron HCl (Zofran Inj) 4 mg Q6H PRN IV NAUSEA AND/OR VOMITING; Start at 20:30 Zolpidem Tartrate (Ambien) 5 mg HS PRN PO INSOMNIA; Start 07/09/16 at 20:30 Aspirin (Aspirin) 81 mg DAILY PO Last administered on 07/12/16 10:20; Admin Dose 81 MG; Start 07/10/16 at 09:00 Atorvastatin Calcium (Lipitor) 40 mg QHS PO Last administered on 07/11/16 20: 56; Admin Dose 40 MG; Start 07/09/16 at 21:00 Benztropine Mesylate (Cogentin) 1 mg BID PO Last administered on 07/12/16 10: 20; Admin Dose 1 MG; Start 07/09/16 at 21:00 Clonidine (Catapres) 0.1 mg Q6 PRN PO SBP ABOVE 160; Start 07/09/16 at 20:30 Finasteride (Proscar) 5 mg DAILY PO Last administered on 07/12/16 10:21; Admin Dose 5 MG; Start 07/10/16 at 09:00 Acetaminophen/ Hydrocodone Bitart ([place] (5/325)) 1 tab Q4 PRN PO SEVERE PAIN LEVEL 7-10; Start 07/09/16 at 20:30 Latanoprost (Xalatan) 1 drop QHS BOTH EYES Last administered on 07/11/16 20:56 ; Admin Dose 1 DROP; Start 07/09/16 at 21:00 Multivitamins Therapeutic (Theragran) 1 tab DAILY PO Last administered on 10:21; Admin Dose 1 TAB; Start 07/10/16 at 09:00 Olanzapine (Zyprexa) 5 mg QHS PO Last administered on 07/11/16 20:56; Admin Dose 5 MG; Start 07/09/16 at 21:00 Zinc Sulfate 220 mg 220 mg DAILY PO Last administered on 07/12/16 10:21; Admin Dose 220 MG; Start 07/10/16 at 09:00 Cefepime HCl (Maxipime 1gm/50 ml (Pmx)) 50 ml @ 100 mls/hr Q24H IVPB Last administered on 07/12/16 10:21; Admin Dose 100 MLS/HR; Start 07/10/16 at 10:00 Acetaminophen (Tylenol Supp) 650 mg Q6H PRN [place] ELEVATED TEMPERATURE Last administered on 07/10/16 09:51; Admin Dose 650 MG; Start 07/10/16 at 09:30 Collagenase (Santyl) 1 applic DAILY TOP Last administered on 07/12/16 10:22; Admin Dose 1 APPLIC; Start 07/10/16 at 14:00 WADE PINK NP July 12, 2016 17:18
[2016-07-12] MEDS ORDERED: POTASSIUM CHLORIDE (SR) 20 MEQ TAB PO STA (17:24)
--- NOTE | 2016-07-12 17:57 | SP ---
DATE OF PROCEDURE: 07/11/2016 DATE OF EE07/11/2016 INDICATION: The patient is a 71-year-old gentleman with encephalopathy, pneumonia, dehydration, sheldon al insufficiency, baseline dementia, and history of CVA. DESCRIPTION OF PROCEDURE: Routine EEG was recorded digitally. [id number] and [id number] vane ages were recorded and reviewed. All impedances were measured and recorded. Cap electrodes were pl aced in accordance with International 10-20 system of electrode placement. FINDINGS: Symmetrically distributed background activity of low to medium amplitude ranging in frequ ency between 4-6 cycles per second was seen most of the recording, at times slightly faster, at time s slightly slower 2-4 cycles per second. Photic stimulation produces no definite driving. There ar e intermittent movement and muscle artifacts present throughout the recording. No epileptiform duran sients were seen. No signs of ongoing electrographic seizures or lateralized slowing. IMPRESSION: Abnormal study secondary to background slowing which could reflect presence of encephal opathy, possibly toxic metabolic etiology. Please correlate clinically. Dictated By: JAYE KNAPP/MEAGAN Conf#: [id number] DID#: [id number]
[2016-07-12] MEDS: OLANZAPINE 5 MG TAB PO SCH (21:13)
[2016-07-12] MEDS: ATORVASTATIN 40 MG TAB PO SCH (21:13)
[2016-07-12] MEDS: LATANOPROST 0.005% 2.5 ML OPH BOTH EYES SCH (21:13)
[2016-07-13] VITALS (12 sets, daily range): BP systolic 130–177; BP diastolic 72–79; PULSE 57–89; RESP 18–20
[2016-07-13] MEDS: SOD CHLORIDE 0.45% 1,000 ML IV SCH (06:24)
[2016-07-13] MEDS ORDERED: PEG/ELECTROLYTES 4L BTL PO ONE (07:30)
[2016-07-13] MEDS: FINASTERIDE 5 MG TAB PO SCH (08:17)
[2016-07-13] MEDS: BENZTROPINE 1 MG TAB PO SCH ×2 (08:17→21:10)
[2016-07-13] MEDS: PANTOPRAZOLE (EC) 40 MG TAB PO SCH (08:17)
[2016-07-13] MEDS: ZINC SULFATE 220 MG CAP PO SCH (08:17)
[2016-07-13] MEDS: ASPIRIN 81 MG TAB PO SCH (08:17)
[2016-07-13] MEDS: MULTIVITAMINS THERAPEUTIC TAB PO SCH (08:17)
[2016-07-13] MEDS: COLLAGENASE 30 GM TUBE TOP SCH (08:18)
--- NOTE | 2016-07-13 10:47 | PN ---
Date/Time of Note Date/Time of Note DATE: 07/13/16 TIME: 10:42 Assessment/Plan VTE Prophylaxis VTE Prophylaxis Intervention: SCD's Lines/Catheters IV Catheter Type (from Nrs): Peripheral IV Urinary Cath still in place: Yes Reason Cath still needed: urinary retention Assessment/Plan Chief Complaint/Hosp Course PT is not yet prep for colonoscopy plan give golytly and duloclax colonoscopy in am Problems: Assessment/Plan plan see orders colonoscopy in am Subjective 24 Hr Interval Summary Gastrointestinal: constipation, passing stool Exam/Review of Systems Vital Signs Vitals Vital Signs Date Time Temp Pulse Resp B/P Pulse Ox O2 Delivery O2 Flow Rate FiO2 07/13/16 08:06 65 07/13/16 08:03 98.9 18 164/73 91 07/13/16 07:28 Nasal Cannula 2.0 Intake and Output 07/12/16 07/12/16 07/13/16 15:00 23:00 07:00 Intake Total 1650 ml 900 ml Output Total 600 ml 800 ml Balance 1050 ml 100 ml Results Result Diagram: 07/12/16 0635 07/12/16 0635 Medications Medications Current Medications Sodium Chloride (1/2 NS) 1,000 ml @ 100 mls/hr Q10H IV Last administered on 06:24; Admin Dose 100 MLS/HR; Start 07/09/16 at 20:30 Acetaminophen (Tylenol Tab) 500 mg Q6H PRN PO PAIN AND OR ELEVATED TEMP; Start 07/09/16 at 20:30 Ondansetron HCl (Zofran Inj) 4 mg Q6H PRN IV NAUSEA AND/OR VOMITING; Start at 20:30 Zolpidem Tartrate (Ambien) 5 mg HS PRN PO INSOMNIA; Start 07/09/16 at 20:30 Aspirin (Aspirin) 81 mg DAILY PO Last administered on 07/13/16 08:17; Admin Dose 81 MG; Start 07/10/16 at 09:00 Atorvastatin Calcium (Lipitor) 40 mg QHS PO Last administered on 07/12/16 21: 13; Admin Dose 40 MG; Start 07/09/16 at 21:00 Benztropine Mesylate (Cogentin) 1 mg BID PO Last administered on 07/13/16 08: 17; Admin Dose 1 MG; Start 07/09/16 at 21:00 Clonidine (Catapres) 0.1 mg Q6 PRN PO SBP ABOVE 160; Start 07/09/16 at 20:30 Finasteride (Proscar) 5 mg DAILY PO Last administered on 07/13/16 08:17; Admin Dose 5 MG; Start 07/10/16 at 09:00 Acetaminophen/ Hydrocodone Bitart ([place] (5/325)) 1 tab Q4 PRN PO SEVERE PAIN LEVEL 7-10; Start 07/09/16 at 20:30 Latanoprost (Xalatan) 1 drop QHS BOTH EYES Last administered on 07/12/16 21:13 ; Admin Dose 1 DROP; Start 07/09/16 at 21:00 Multivitamins Therapeutic (Theragran) 1 tab DAILY PO Last administered on 08:17; Admin Dose 1 TAB; Start 07/10/16 at 09:00 Olanzapine (Zyprexa) 5 mg QHS PO Last administered on 07/12/16 21:13; Admin Dose 5 MG; Start 07/09/16 at 21:00 Zinc Sulfate 220 mg 220 mg DAILY PO Last administered on 07/13/16 08:17; Admin Dose 220 MG; Start 07/10/16 at 09:00 Cefepime HCl (Maxipime 1gm/50 ml (Pmx)) 50 ml @ 100 mls/hr Q24H IVPB Last administered on 07/12/16 10:21; Admin Dose 100 MLS/HR; Start 07/10/16 at 10:00 Acetaminophen (Tylenol Supp) 650 mg Q6H PRN [place] ELEVATED TEMPERATURE Last administered on 07/10/16 09:51; Admin Dose 650 MG; Start 07/10/16 at 09:30 Collagenase (Santyl) 1 applic DAILY TOP Last administered on 07/13/16 08:18; Admin Dose 1 APPLIC; Start 07/10/16 at 14:00 MALIKA ARNOLD MD July 13, 2016 10:47
[2016-07-13] MEDS: CEFEPIME 1GM/50 ML (PMX) 50 ML IVPB SCH (11:01)
--- NOTE | 2016-07-13 11:21 | PN ---
Date/Time of Note Date/Time of Note DATE: 07/13/16 TIME: 11:19 Assessment/Plan VTE Prophylaxis VTE Prophylaxis Intervention: other Assessment/Plan Chief Complaint/Hosp Course cute kidney injury, Pre- Renal R/o ATN, [place] no signs of obstructive Uropathy, Hx of BPH.- Non Oliguric 2. Hypertension. Normotensive at this time. 3. Chronic obstructive pulmonary disease. 4. Benign prostatic hypertrophy. 5. Loculated pleural effusion. 6. Multiple decubiti 7. Cerebrovascular accident. 8. Dyslipidemia. 9. Dementia with behavioral disturbance. 10. Metabolic Acidosis-stable 11 c diff 5260222 creat stable non oliguric cont plan [id number] non oliguric hypernatremia k replace /hypokalemia no hd Problems: Exam/Review of Systems Vital Signs Vitals Vital Signs Date Time Temp Pulse Resp B/P Pulse Ox O2 Delivery O2 Flow Rate FiO2 07/13/16 08:06 65 07/13/16 08:03 98.9 18 164/73 91 07/13/16 07:28 Nasal Cannula 2.0 Intake and Output 07/12/16 07/12/16 07/13/16 15:00 23:00 07:00 Intake Total 1650 ml 900 ml Output Total 600 ml 800 ml Balance 1050 ml 100 ml Exam Constitutional: alert Head: atraumatic Eyes: nl conjunctiva ENMT: nl external ears & nose Neck: supple Respiratory: clear to auscultation Gastrointestinal: soft Musculoskeletal: swelling Results Result Diagram: 07/12/16 0635 07/12/16 0635 Medications Medications Current Medications Sodium Chloride (1/2 NS) 1,000 ml @ 100 mls/hr Q10H IV Last administered on 06:24; Admin Dose 100 MLS/HR; Start 07/09/16 at 20:30 Acetaminophen (Tylenol Tab) 500 mg Q6H PRN PO PAIN AND OR ELEVATED TEMP; Start 07/09/16 at 20:30 Ondansetron HCl (Zofran Inj) 4 mg Q6H PRN IV NAUSEA AND/OR VOMITING; Start at 20:30 Zolpidem Tartrate (Ambien) 5 mg HS PRN PO INSOMNIA; Start 07/09/16 at 20:30 Aspirin (Aspirin) 81 mg DAILY PO Last administered on 07/13/16 08:17; Admin Dose 81 MG; Start 07/10/16 at 09:00 Atorvastatin Calcium (Lipitor) 40 mg QHS PO Last administered on 07/12/16 21: 13; Admin Dose 40 MG; Start 07/09/16 at 21:00 Benztropine Mesylate (Cogentin) 1 mg BID PO Last administered on 07/13/16 08: 17; Admin Dose 1 MG; Start 07/09/16 at 21:00 Clonidine (Catapres) 0.1 mg Q6 PRN PO SBP ABOVE 160; Start 07/09/16 at 20:30 Finasteride (Proscar) 5 mg DAILY PO Last administered on 07/13/16 08:17; Admin Dose 5 MG; Start 07/10/16 at 09:00 Acetaminophen/ Hydrocodone Bitart ([place] (5/325)) 1 tab Q4 PRN PO SEVERE PAIN LEVEL 7-10; Start 07/09/16 at 20:30 Latanoprost (Xalatan) 1 drop QHS BOTH EYES Last administered on 07/12/16 21:13 ; Admin Dose 1 DROP; Start 07/09/16 at 21:00 Multivitamins Therapeutic (Theragran) 1 tab DAILY PO Last administered on 08:17; Admin Dose 1 TAB; Start 07/10/16 at 09:00 Olanzapine (Zyprexa) 5 mg QHS PO Last administered on 07/12/16 21:13; Admin Dose 5 MG; Start 07/09/16 at 21:00 Zinc Sulfate 220 mg 220 mg DAILY PO Last administered on 07/13/16 08:17; Admin Dose 220 MG; Start 07/10/16 at 09:00 Cefepime HCl (Maxipime 1gm/50 ml (Pmx)) 50 ml @ 100 mls/hr Q24H IVPB Last administered on 07/13/16 11:01; Admin Dose 100 MLS/HR; Start 07/10/16 at 10:00 Acetaminophen (Tylenol Supp) 650 mg Q6H PRN [place] ELEVATED TEMPERATURE Last administered on 07/10/16 09:51; Admin Dose 650 MG; Start 07/10/16 at 09:30 Collagenase (Santyl) 1 applic DAILY TOP Last administered on 07/13/16 08:18; Admin Dose 1 APPLIC; Start 07/10/16 at 14:00 STEPHAN MELO MD July 13, 2016 11:21
--- NOTE | 2016-07-13 12:49 | PN ---
Date/Time of Note Date/Time of Note DATE: 07/13/16 TIME: 12:49 Assessment/Plan VTE Prophylaxis VTE Prophylaxis Intervention: other Assessment/Plan Chief Complaint/Hosp Course - Acute kidney injury, etiology unknown. Dr. Keating is following in nephrology consultation. - Acute metabolic encephalopathy, resolving. - Hypertension. - Chronic obstructive pulmonary disease. - Benign prostatic hypertrophy. Continue Flomax. - Loculated pleural effusion. Continue to monitor chest x-ray. - Multiple decubitus ulcers. Continue current wound care - Acute cerebrovascular accident. Continue aspirin. - Dyslipidemia. Continue Lipitor. - Dementia with behavioral disturbance. Continue Zyprexa. Problems: Subjective 24 Hr Interval Summary Free Text/Dictation Patient has no complaints Exam/Review of Systems Vital Signs Vitals Vital Signs Date Time Temp Pulse Resp B/P Pulse Ox O2 Delivery O2 Flow Rate FiO2 07/13/16 12:05 89 07/13/16 11:59 98.9 18 130/72 96 07/13/16 07:28 Nasal Cannula 2.0 Intake and Output 07/12/16 07/12/16 07/13/16 15:00 23:00 07:00 Intake Total 1650 ml 900 ml Output Total 600 ml 800 ml Balance 1050 ml 100 ml Exam Constitutional: well developed Head: atraumatic, normocephalic Neck: supple Respiratory: clear to auscultation Cardiovascular: regular rate and rhythm Gastrointestinal: non-tender, soft Extremities: normal pulses Results Result Diagram: 07/12/16 0635 07/12/16 0635 Medications Medications Current Medications Sodium Chloride (1/2 NS) 1,000 ml @ 100 mls/hr Q10H IV Last administered on 06:24; Admin Dose 100 MLS/HR; Start 07/09/16 at 20:30 Acetaminophen (Tylenol Tab) 500 mg Q6H PRN PO PAIN AND OR ELEVATED TEMP; Start 07/09/16 at 20:30 Ondansetron HCl (Zofran Inj) 4 mg Q6H PRN IV NAUSEA AND/OR VOMITING; Start at 20:30 Zolpidem Tartrate (Ambien) 5 mg HS PRN PO INSOMNIA; Start 07/09/16 at 20:30 Aspirin (Aspirin) 81 mg DAILY PO Last administered on 07/13/16 08:17; Admin Dose 81 MG; Start 07/10/16 at 09:00 Atorvastatin Calcium (Lipitor) 40 mg QHS PO Last administered on 07/12/16 21: 13; Admin Dose 40 MG; Start 07/09/16 at 21:00 Benztropine Mesylate (Cogentin) 1 mg BID PO Last administered on 07/13/16 08: 17; Admin Dose 1 MG; Start 07/09/16 at 21:00 Clonidine (Catapres) 0.1 mg Q6 PRN PO SBP ABOVE 160; Start 07/09/16 at 20:30 Finasteride (Proscar) 5 mg DAILY PO Last administered on 07/13/16 08:17; Admin Dose 5 MG; Start 07/10/16 at 09:00 Acetaminophen/ Hydrocodone Bitart ([place] (5/325)) 1 tab Q4 PRN PO SEVERE PAIN LEVEL 7-10; Start 07/09/16 at 20:30 Latanoprost (Xalatan) 1 drop QHS BOTH EYES Last administered on 07/12/16 21:13 ; Admin Dose 1 DROP; Start 07/09/16 at 21:00 Multivitamins Therapeutic (Theragran) 1 tab DAILY PO Last administered on 08:17; Admin Dose 1 TAB; Start 07/10/16 at 09:00 Olanzapine (Zyprexa) 5 mg QHS PO Last administered on 07/12/16 21:13; Admin Dose 5 MG; Start 07/09/16 at 21:00 Zinc Sulfate 220 mg 220 mg DAILY PO Last administered on 07/13/16 08:17; Admin Dose 220 MG; Start 07/10/16 at 09:00 Cefepime HCl (Maxipime 1gm/50 ml (Pmx)) 50 ml @ 100 mls/hr Q24H IVPB Last administered on 07/13/16 11:01; Admin Dose 100 MLS/HR; Start 07/10/16 at 10:00 Acetaminophen (Tylenol Supp) 650 mg Q6H PRN [place] ELEVATED TEMPERATURE Last administered on 07/10/16 09:51; Admin Dose 650 MG; Start 07/10/16 at 09:30 Collagenase (Santyl) 1 applic DAILY TOP Last administered on 07/13/16 08:18; Admin Dose 1 APPLIC; Start 5/25/17 at 14:00 WINIFRED CHAVEZ July 13, 2016 12:49
--- NOTE | 2016-07-13 13:45 | RADRPT ---
PROCEDURE: XR Chest. CLINICAL INDICATION: Rule out infiltrate. Dyspnea. TECHNIQUE: Single frontal chest x-ray. COMPARISON: 07/09/2016 FINDINGS: Dense consolidation is seen in the right lung base. This is slightly worse when compared to the pre vious study. Loculated right lateral basilar pleural effusion is seen, stable over time. Focal inf iltrate and small effusion is seen in the left lung base. There is increased vascular congestion th roughout the lungs, stable over time. The heart size is borderline upper normal. The mediastinal s ilhouette is unremarkable. No pneumothorax is seen on either side. The surrounding osseous structu res are unremarkable.. IMPRESSION: 1. Worsening consolidation/pneumonia in the right lung base. 2. Stable consolidation and effusion in the left lung base. 3. Stable small loculated effusion along the lateral periphery of the right lower lung. 4. Borderline upper normal size heart with aortic atherosclerotic vascular calcifications. 5. No pneumothorax is seen at this time. RPTAT: HMJB .Robert Jackson MD, MD Date Time Electronically viewed and signed by .Robert Jackson MD, on 07/13/2016 13:44 .B/
[2016-07-13 15:02] LABS: ADD SCAN DIFF NO
--- NOTE | 2016-07-13 15:04 | RADRPT ---
PROCEDURE: CT Brain without contrast. CLINICAL INDICATION: Code stroke. Altered mental status. TECHNIQUE: A CT of the brain was performed on a multidetector CT scanner utilizing axial sections from the skull base through the vertex without contrast. Images were reviewed on a high-resolution [employer] workstation. Exam CTDI = 43.48 mGy and the DLP = 720.23 mGy-cm. One or more of the following dose reduction techniques were used: Automated exposure control Adjustment of the mA and/or kV according to patient size. Use of iterative reconstruction technique. COMPARISON: CT head 07/11/2016 FINDINGS: Mild to moderate diffuse cerebral and cerebellar atrophy is present. There is proportionate dilatat ion of the ventricular system and sulci in a symmetric fashion. There is prominence of the extraaxia l spaces secondary to atrophy. There is no evidence of intracranial hemorrhage, mass effect or midli ne shift. No abnormal intra-axial or extra-axial fluid collections are seen. The density of the br ain is normal and the yee/white matter differentiation is well preserved. Moderate patchy diffuse deep white matter microangiopathic ischemic change is seen. The osseous structures are unremarka ble. Trace mucosal thickening is seen in the ethmoid air cells and right maxillary sinus. There is chronic fracture deformity of the left zygomatic arch.. Vascular calcifications are identified. A call report was made to DANIEL Chávez at 07/13/2016 3:02:00 PM following completion of the examinatio n. IMPRESSION: 1. No intracranial hemorrhage, mass effect or midline shift. 2. Mild to moderate generalized atrophy. Moderate microangiopathic ischemic change. 3. Intracranial atherosclerosis. RPTAT: QQ .Pedro Valente MD, Date Time Electronically viewed and signed by .Pedro Valente MD, on 07/13/2016 15:03 .O/
[2016-07-13 15:05] LABS: BASOPHILS % 0.1 % (0.0-2.0); EOSINOPHILS # 0.3 10^3/ul (0.0-0.5); EOSINOPHILS % 2.4 % (0.0-7.0); HEMATOCRIT 31.7 % (42.0-52.0); HEMOGLOBIN 10.4 g/dl (14.0-18.0); LYMPHOCYTES # 1.1 10^3/ul (0.8-2.9); LYMPHOCYTES % 8.6 % (15.0-51.0); MEAN CORPUSCULAR HEMOGLOBIN 30.4 pg (29.0-33.0); MEAN CORPUSCULAR HGB CONC 32.8 g/dl (32.0-37.0); MEAN CORPUSCULAR VOLUME 92.7 fl (82.0-101.0); MEAN PLATELET VOLUME 9.7 fl (7.4-10.4); MONOCYTE # 0.8 10^3/ul (0.3-0.9); MONOCYTES % 5.9 % (0.0-11.0); NEUTROPHIL # 10.4 10^3/ul (1.6-7.5); NEUTROPHILS % 82.4 % (39.0-77.0); PLATELET COUNT 287 10^3/UL (140-415); RED BLOOD COUNT 3.42 10^6/ul (4.70-6.10); RED CELL DISTRIBUTION WIDTH 13.5 % (11.5-14.5); WHITE BLOOD COUNT 12.7 10^3/ul (4.8-10.8)
[2016-07-13 15:26] LABS: CALCIUM 7.5 mg/dl (8.4-10.2); CREATININE 4.17 mg/dl (0.61-1.24); POTASSIUM 3.4 mmol/L (3.5-5.1)
[2016-07-13] MEDS ORDERED: POTASSIUM CHLORIDE (SR) 20 MEQ TAB PO STA (16:09)
--- NOTE | 2016-07-13 16:41 | CONS ---
DATE OF ADMISSION: 07/09/2016 DATE OF CONSULTATION: TYPE OF CONSULTATION: Neurology. REASON FOR CONSULTATION: This is a gentleman who I was asked to see for concern of stroke. HISTORY OF PRESENT ILLNESS: The patient is a 71-year-old male with past medical history of end-stag e renal disease as well as dementia. The patient was admitted to the hospital for worsening end-sta ge renal disease and has been treated for bowel obstruction as well as pneumonia during the course o f this day. This afternoon at an unspecified time, the patient stopped speaking. His alertness was p reserved. The patient was a little bit less arousable. He was nonfocal, but no longer able to follo w commands. The patient is chronically ill. The patient is not ambulatory at baseline. The patien t's BUN is currently in excess of 100. The patient was unable to provide a history. I was able to s peak with the patient's hospitalist who was able to provide some basic history. I was able to evalu ate the patient and the patient was alert. He was direct his gaze. His facies were symmetric. 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 He withdrew his extremities to noxious stimuli, although he had cont ractions in his lower extremities and had minimal range of motion. ASSESSMENT: This is a gentleman who likely has a metabolic encephalopathy superimposed upon dementi a, possible etiologies to include his end-stage renal disease, concern of new bowel obstruction. I would recommend checking LFTs, checking a blood gas, check ammonia, repeating his chemistries. At th is point in time, I would not deem the patient an appropriate tPA candidate because it is unclear th at his symptoms are ischemic in nature but the patient has no additional metabolic issues to explain his condition. Eventually an MRI scan can be considered; however, it is likely that the patient's uremia, dementia, infection, bowel obstruction are causing him to be less responsive. I called and spoke with the hospitalist director [facility] and shared my recommendations with him. Dictated By: MAMIE HERNANDEZ CM/MEAGAN Conf#: [id number] DID#: [id number]
[2016-07-13] MEDS: DEXTROSE 5% 1,000 ML IV SCH (16:56)
[2016-07-13] MEDS: BISACODYL (EC) 5 MG TAB PO SCH ×2 (16:57→21:10)
[2016-07-13] MEDS: OLANZAPINE 5 MG TAB PO SCH (21:10)
[2016-07-13] MEDS: ATORVASTATIN 40 MG TAB PO SCH (21:10)
[2016-07-13] MEDS: LATANOPROST 0.005% 2.5 ML OPH BOTH EYES SCH (21:10)
[2016-07-14] VITALS (12 sets, daily range): BP systolic 139–179; BP diastolic 64–97; PULSE 56–94; RESP 18–20
[2016-07-14] MEDS: DEXTROSE 5% 1,000 ML IV SCH ×3 (03:25→21:51)
[2016-07-14 06:40] LABS: ADD SCAN DIFF NO
[2016-07-14 06:54] LABS: BASOPHILS % 0.2 % (0.0-2.0); EOSINOPHILS # 0.5 10^3/ul (0.0-0.5); EOSINOPHILS % 3.8 % (0.0-7.0); HEMATOCRIT 29.3 % (42.0-52.0); HEMOGLOBIN 9.6 g/dl (14.0-18.0); LYMPHOCYTES # 1.3 10^3/ul (0.8-2.9); MEAN CORPUSCULAR HEMOGLOBIN 30.3 pg (29.0-33.0); MEAN CORPUSCULAR HGB CONC 32.8 g/dl (32.0-37.0); MEAN CORPUSCULAR VOLUME 92.4 fl (82.0-101.0); MEAN PLATELET VOLUME 9.6 fl (7.4-10.4); MONOCYTES % 7.7 % (0.0-11.0); NEUTROPHIL # 9.9 10^3/ul (1.6-7.5); NEUTROPHILS % 77.9 % (39.0-77.0); PLATELET COUNT 272 10^3/UL (140-415); RED BLOOD COUNT 3.17 10^6/ul (4.70-6.10); RED CELL DISTRIBUTION WIDTH 13.4 % (11.5-14.5); WHITE BLOOD COUNT 12.7 10^3/ul (4.8-10.8)
[2016-07-14 07:18] LABS: CREATININE 3.9 mg/dl (0.61-1.24)
[2016-07-14 07:19] LABS: CALCIUM 7.1 mg/dl (8.4-10.2)
[2016-07-14 07:27] LABS: POTASSIUM 2.8 mmol/L (3.5-5.1)
[2016-07-14] MEDS ORDERED: POTASSIUM CHLORIDE (SR) 20 MEQ TAB PO STA (07:49)
[2016-07-14] MEDS: ASPIRIN 81 MG TAB PO SCH (08:30)
[2016-07-14] MEDS: FINASTERIDE 5 MG TAB PO SCH (08:30)
[2016-07-14] MEDS: PANTOPRAZOLE (EC) 40 MG TAB PO SCH (08:31)
[2016-07-14] MEDS: BENZTROPINE 1 MG TAB PO SCH ×2 (08:31→21:05)
[2016-07-14] MEDS: COLLAGENASE 30 GM TUBE TOP SCH (08:31)
[2016-07-14] MEDS: BISACODYL (EC) 5 MG TAB PO SCH ×2 (08:31→21:05)
[2016-07-14] MEDS: MULTIVITAMINS THERAPEUTIC TAB PO SCH (08:31)
[2016-07-14] MEDS: ZINC SULFATE 220 MG CAP PO SCH (08:31)
--- NOTE | 2016-07-14 10:18 | PN ---
Date/Time of Note Date/Time of Note DATE: 07/14/16 TIME: 10:17 Assessment/Plan VTE Prophylaxis VTE Prophylaxis Intervention: other Lines/Catheters [facility] (from [facility]): Peripheral IV Urinary Cath still in place: Yes Reason Cath still needed: skin wounds contaminated by urine Assessment/Plan Chief Complaint/Hosp Course - Acute kidney injury, etiology unknown. Dr. Keating is following in nephrology consultation. - Acute metabolic encephalopathy, resolving. - Hypertension. - Chronic obstructive pulmonary disease. - Benign prostatic hypertrophy. Continue Flomax. - Loculated pleural effusion. Continue to monitor chest x-ray. - Multiple decubitus ulcers. Continue current wound care - Acute cerebrovascular accident. Continue aspirin. - Dyslipidemia. Continue Lipitor. - Dementia with behavioral disturbance. Continue Zyprexa. Problems: Subjective 24 Hr Interval Summary Free Text/Dictation Patient is less interactive, probably related to metabolic encephalopathy Exam/Review of Systems Vital Signs Vitals Vital Signs Date Time Temp Pulse Resp B/P Pulse Ox O2 Delivery O2 Flow Rate FiO2 07/14/16 08:07 56 07/14/16 07:48 98.4 18 139/64 98 07/14/16 01:53 2.0 07/13/16 20:18 Nasal Cannula Intake and Output 07/13/16 07/13/16 07/14/16 15:00 23:00 07:00 Intake Total 850 ml 2000 ml Output Total 900 ml 750 ml Balance -50 ml 1250 ml Exam Constitutional: well developed Head: atraumatic, normocephalic Neck: supple Respiratory: clear to auscultation Cardiovascular: regular rate and rhythm Gastrointestinal: non-tender, soft Extremities: normal pulses Results Result Diagram: 07/14/16 0550 07/14/16 0550 Results 24 hrs Laboratory Tests Test 07/13/16 14:13 07/13/16 14:40 07/14/16 05:50 Bedside Glucose 106 White Blood Count 12.7 H 12.7 H Red Blood Count 3.42 L 3.17 L Hemoglobin 10.4 L 9.6 L Hematocrit 31.7 L 29.3 L Mean Corpuscular Volume 92.7 92.4 Mean Corpuscular Hemoglobin 30.4 30.3 Mean Corpuscular Hemoglobin Concent 32.8 32.8 Red Cell Distribution Width 13.5 13.4 Platelet Count 287 272 Mean Platelet Volume 9.7 9.6 Neutrophils % 82.4 H 77.9 H Lymphocytes % 8.6 L 10.0 L Monocytes % 5.9 7.7 Eosinophils % 2.4 3.8 Basophils % 0.1 0.2 Nucleated Red Blood Cells % 0.0 0.0 Neutrophils # 10.4 H 9.9 H Lymphocytes # 1.1 1.3 Monocytes # 0.8 1.0 H Eosinophils # 0.3 0.5 Basophils # 0.0 0.0 Nucleated Red Blood Cells # 0.0 0.0 Sodium Level 155 H 149 H Potassium Level 3.4 L 2.8 *L Chloride Level 121 H 126 H Carbon Dioxide Level 20 L 21 Anion Gap 17 H 5 #L Blood Urea Nitrogen 99 H 96 H Creatinine 4.17 H 3.90 H Glucose Level 85 121 Calcium Level 7.5 L 7.1 L Medications Medications Current Medications Acetaminophen (Tylenol Tab) 500 mg Q6H PRN PO PAIN AND OR ELEVATED TEMP; Start 07/09/16 at 20:30 Ondansetron HCl (Zofran Inj) 4 mg Q6H PRN IV NAUSEA AND/OR VOMITING; Start at 20:30 Zolpidem Tartrate (Ambien) 5 mg HS PRN PO INSOMNIA; Start 07/09/16 at 20:30 Aspirin (Aspirin) 81 mg DAILY PO Last administered on 07/14/16 08:30; Admin Dose 81 MG; Start 07/10/16 at 09:00 Atorvastatin Calcium (Lipitor) 40 mg QHS PO Last administered on 07/13/16 21: 10; Admin Dose 40 MG; Start 07/09/16 at 21:00 Benztropine Mesylate (Cogentin) 1 mg BID PO Last administered on 07/14/16 08: 31; Admin Dose 1 MG; Start 07/09/16 at 21:00 Clonidine (Catapres) 0.1 mg Q6 PRN PO SBP ABOVE 160; Start 07/09/16 at 20:30 Finasteride (Proscar) 5 mg DAILY PO Last administered on 07/14/16 08:30; Admin Dose 5 MG; Start 07/10/16 at 09:00 Acetaminophen/ Hydrocodone Bitart ([place] (5/325)) 1 tab Q4 PRN PO SEVERE PAIN LEVEL 7-10; Start 07/09/16 at 20:30 Latanoprost (Xalatan) 1 drop QHS BOTH EYES Last administered on 07/13/16 21:10 ; Admin Dose 1 DROP; Start 07/09/16 at 21:00 Multivitamins Therapeutic (Theragran) 1 tab DAILY PO Last administered on 08:31; Admin Dose 1 TAB; Start 07/10/16 at 09:00 Olanzapine (Zyprexa) 5 mg QHS PO Last administered on 07/13/16 21:10; Admin Dose 5 MG; Start 07/09/16 at 21:00 Zinc Sulfate 220 mg 220 mg DAILY PO Last administered on 07/14/16 08:31; Admin Dose 220 MG; Start 07/10/16 at 09:00 Cefepime HCl (Maxipime 1gm/50 ml (Pmx)) 50 ml @ 100 mls/hr Q24H IVPB Last administered on 07/13/16 11:01; Admin Dose 100 MLS/HR; Start 07/10/16 at 10:00 Acetaminophen (Tylenol Supp) 650 mg Q6H PRN [place] ELEVATED TEMPERATURE Last administered on 07/10/16 09:51; Admin Dose 650 MG; Start 07/10/16 at 09:30 Collagenase (Santyl) 1 applic DAILY TOP Last administered on 07/14/16 08:31; Admin Dose 1 APPLIC; Start 07/10/16 at 14:00 Bisacodyl 10 mg 10 mg BID PO Last administered on 07/14/16 08:31; Admin Dose 10 MG; Start 07/13/16 at 15:00 Dextrose (D5W) 1,000 ml @ 100 mls/hr Q10H IV Last administered on 07/14/16 03 :25; Admin Dose 100 MLS/HR; Start 07/13/16 at 16:30 WINIFRED CHAVEZ July 14, 2016 10:18
[2016-07-14] MEDS: CEFEPIME 1GM/50 ML (PMX) 50 ML IVPB SCH (11:10)
--- NOTE | 2016-07-14 11:21 | PN ---
Date/Time of Note Date/Time of Note DATE: 07/14/16 TIME: 11:14 Assessment/Plan VTE Prophylaxis VTE Prophylaxis Intervention: SCD's Lines/Catheters [facility] Type ([facility]): Peripheral IV Urinary Cath still in place: Yes Reason Cath still needed: urinary retention Assessment/Plan Chief Complaint/Hosp Course PT is not yet prep for colonoscopy plan give golytly and duloclax colonoscopy in am Problems: Assessment/Plan pt C. DIFF positive still not clean plan vancomycin 250mg tid po continue golytely start ensure 4 oz qid Subjective 24 Hr Interval Summary Gastrointestinal: other (pt is still not clean for colonoscopy), passing stool (pt still not clean for colonoscopy) Exam/Review of Systems Vital Signs Vitals Vital Signs Date Time Temp Pulse Resp B/P Pulse Ox O2 Delivery O2 Flow Rate FiO2 07/14/16 08:07 56 07/14/16 07:48 98.4 18 139/64 98 07/14/16 01:53 2.0 07/13/16 20:18 Nasal Cannula Intake and Output 07/13/16 07/13/16 07/14/16 14:59 22:59 06:59 Intake Total 850 ml 2000 ml Output Total 900 ml 750 ml Balance -50 ml 1250 ml Results Result Diagram: 07/14/16 0550 07/14/16 0550 Results 24 hrs Laboratory Tests Test 07/13/16 14:13 07/13/16 14:40 07/14/16 05:50 Bedside Glucose 106 White Blood Count 12.7 H 12.7 H Red Blood Count 3.42 L 3.17 L Hemoglobin 10.4 L 9.6 L Hematocrit 31.7 L 29.3 L Mean Corpuscular Volume 92.7 92.4 Mean Corpuscular Hemoglobin 30.4 30.3 Mean Corpuscular Hemoglobin Concent 32.8 32.8 Red Cell Distribution Width 13.5 13.4 Platelet Count 287 272 Mean Platelet Volume 9.7 9.6 Neutrophils % 82.4 H 77.9 H Lymphocytes % 8.6 L 10.0 L Monocytes % 5.9 7.7 Eosinophils % 2.4 3.8 Basophils % 0.1 0.2 Nucleated Red Blood Cells % 0.0 0.0 Neutrophils # 10.4 H 9.9 H Lymphocytes # 1.1 1.3 Monocytes # 0.8 1.0 H Eosinophils # 0.3 0.5 Basophils # 0.0 0.0 Nucleated Red Blood Cells # 0.0 0.0 Sodium Level 155 H 149 H Potassium Level 3.4 L 2.8 *L Chloride Level 121 H 126 H Carbon Dioxide Level 20 L 21 Anion Gap 17 H 5 #L Blood Urea Nitrogen 99 H 96 H Creatinine 4.17 H 3.90 H Glucose Level 85 121 Calcium Level 7.5 L 7.1 L Medications Medications Current Medications Acetaminophen (Tylenol Tab) 500 mg Q6H PRN PO PAIN AND OR ELEVATED TEMP; Start 07/09/16 at 20:30 Ondansetron HCl (Zofran Inj) 4 mg Q6H PRN IV NAUSEA AND/OR VOMITING; Start at 20:30 Zolpidem Tartrate (Ambien) 5 mg HS PRN PO INSOMNIA; Start 07/09/16 at 20:30 Aspirin (Aspirin) 81 mg DAILY PO Last administered on 07/14/16 08:30; Admin Dose 81 MG; Start 07/10/16 at 09:00 Atorvastatin Calcium (Lipitor) 40 mg QHS PO Last administered on 07/13/16 21: 10; Admin Dose 40 MG; Start 07/09/16 at 21:00 Benztropine Mesylate (Cogentin) 1 mg BID PO Last administered on 07/14/16 08: 31; Admin Dose 1 MG; Start 07/09/16 at 21:00 Clonidine (Catapres) 0.1 mg Q6 PRN PO SBP ABOVE 160; Start 07/09/16 at 20:30 Finasteride (Proscar) 5 mg DAILY PO Last administered on 07/14/16 08:30; Admin Dose 5 MG; Start 07/10/16 at 09:00 Acetaminophen/ Hydrocodone Bitart ([place] (5/325)) 1 tab Q4 PRN PO SEVERE PAIN LEVEL 7-10; Start 07/09/16 at 20:30 Latanoprost (Xalatan) 1 drop QHS BOTH EYES Last administered on 07/13/16 21:10 ; Admin Dose 1 DROP; Start 07/09/16 at 21:00 Multivitamins Therapeutic (Theragran) 1 tab DAILY PO Last administered on 08:31; Admin Dose 1 TAB; Start 07/10/16 at 09:00 Olanzapine (Zyprexa) 5 mg QHS PO Last administered on 07/13/16 21:10; Admin Dose 5 MG; Start 07/09/16 at 21:00 Zinc Sulfate 220 mg 220 mg DAILY PO Last administered on 07/14/16 08:31; Admin Dose 220 MG; Start 07/10/16 at 09:00 Cefepime HCl (Maxipime 1gm/50 ml (Pmx)) 50 ml @ 100 mls/hr Q24H IVPB Last administered on 07/14/16 11:10; Admin Dose 100 MLS/HR; Start 07/10/16 at 10:00 Acetaminophen (Tylenol Supp) 650 mg Q6H PRN [place] ELEVATED TEMPERATURE Last administered on 07/10/16 09:51; Admin Dose 650 MG; Start 07/10/16 at 09:30 Collagenase (Santyl) 1 applic DAILY TOP Last administered on 07/14/16 08:31; Admin Dose 1 APPLIC; Start 07/10/16 at 14:00 Bisacodyl 10 mg 10 mg BID PO Last administered on 07/14/16 08:31; Admin Dose 10 MG; Start 07/13/16 at 15:00 Dextrose (D5W) 1,000 ml @ 100 mls/hr Q10H IV Last administered on 07/14/16 03 :25; Admin Dose 100 MLS/HR; Start 07/13/16 at 16:30 MALIKA ARNOLD MD July 14, 2016 11:20
--- NOTE | 2016-07-14 12:28 | PN ---
Date/Time of Note Date/Time of Note DATE: 07/14/16 TIME: 12:26 Assessment/Plan VTE Prophylaxis VTE Prophylaxis Intervention: other Lines/Catheters IV [facility] Type ([facility] Peripheral IV Assessment/Plan Chief Complaint/Hosp Course cute kidney injury, Pre- Renal R/o ATN, [place] no signs of obstructive Uropathy, Hx of BPH.- Non Oliguric 2. Hypertension. Normotensive at this time. 3. Chronic obstructive pulmonary disease. 4. Benign prostatic hypertrophy. 5. Loculated pleural effusion. 6. Multiple decubiti 7. Cerebrovascular accident. 8. Dyslipidemia. 9. Dementia with behavioral disturbance. 10. Metabolic Acidosis-stable 11 c diff 5260222 creat stable non oliguric cont plan [id number] non oliguric hypernatremia k replace /hypokalemia no hd [id number] non oliguric improving creat replace k Problems: Subjective 24 Hr Interval Summary Respiratory: no complaints Cardiovascular: no complaints Gastrointestinal: no complaints Skin: no complaints Exam/Review of Systems Vital Signs Vitals Vital Signs Date Time Temp Pulse Resp B/P Pulse Ox O2 Delivery O2 Flow Rate FiO2 07/14/16 12:23 84 07/14/16 11:39 97.9 19 165/77 95 07/14/16 01:53 2.0 07/13/16 20:18 Nasal Cannula Intake and Output 07/13/16 07/13/16 07/14/16 15:00 23:00 07:00 Intake Total 850 ml 2000 ml Output Total 900 ml 750 ml Balance -50 ml 1250 ml Exam Constitutional: alert Eyes: nl conjunctiva Neck: supple Respiratory: clear to auscultation Cardiovascular: regular rate and rhythm Gastrointestinal: soft Extremities: edema Results Result Diagram: 07/14/16 0550 07/14/16 0550 Results 24 hrs Laboratory Tests Test 07/13/16 14:13 07/13/16 14:40 07/14/16 05:50 Bedside Glucose 106 White Blood Count 12.7 H 12.7 H Red Blood Count 3.42 L 3.17 L Hemoglobin 10.4 L 9.6 L Hematocrit 31.7 L 29.3 L Mean Corpuscular Volume 92.7 92.4 Mean Corpuscular Hemoglobin 30.4 30.3 Mean Corpuscular Hemoglobin Concent 32.8 32.8 Red Cell Distribution Width 13.5 13.4 Platelet Count 287 272 Mean Platelet Volume 9.7 9.6 Neutrophils % 82.4 H 77.9 H Lymphocytes % 8.6 L 10.0 L Monocytes % 5.9 7.7 Eosinophils % 2.4 3.8 Basophils % 0.1 0.2 Nucleated Red Blood Cells % 0.0 0.0 Neutrophils # 10.4 H 9.9 H Lymphocytes # 1.1 1.3 Monocytes # 0.8 1.0 H Eosinophils # 0.3 0.5 Basophils # 0.0 0.0 Nucleated Red Blood Cells # 0.0 0.0 Sodium Level 155 H 149 H Potassium Level 3.4 L 2.8 *L Chloride Level 121 H 126 H Carbon Dioxide Level 20 L 21 Anion Gap 17 H 5 #L Blood Urea Nitrogen 99 H 96 H Creatinine 4.17 H 3.90 H Glucose Level 85 121 Calcium Level 7.5 L 7.1 L Medications Medications Current Medications Acetaminophen (Tylenol Tab) 500 mg Q6H PRN PO PAIN AND OR ELEVATED TEMP; Start 07/09/16 at 20:30 Ondansetron HCl (Zofran Inj) 4 mg Q6H PRN IV NAUSEA AND/OR VOMITING; Start at 20:30 Zolpidem Tartrate (Ambien) 5 mg HS PRN PO INSOMNIA; Start 07/09/16 at 20:30 Aspirin (Aspirin) 81 mg DAILY PO Last administered on 07/14/16 08:30; Admin Dose 81 MG; Start 07/10/16 at 09:00 Atorvastatin Calcium (Lipitor) 40 mg QHS PO Last administered on 07/13/16 21: 10; Admin Dose 40 MG; Start 07/09/16 at 21:00 Benztropine Mesylate (Cogentin) 1 mg BID PO Last administered on 07/14/16 08: 31; Admin Dose 1 MG; Start 07/09/16 at 21:00 Clonidine (Catapres) 0.1 mg Q6 PRN PO SBP ABOVE 160; Start 07/09/16 at 20:30 Finasteride (Proscar) 5 mg DAILY PO Last administered on 07/14/16 08:30; Admin Dose 5 MG; Start 07/10/16 at 09:00 Acetaminophen/ Hydrocodone Bitart ([place] (5/325)) 1 tab Q4 PRN PO SEVERE PAIN LEVEL 7-10; Start 07/09/16 at 20:30 Latanoprost (Xalatan) 1 drop QHS BOTH EYES Last administered on 07/13/16 21:10 ; Admin Dose 1 DROP; Start 07/09/16 at 21:00 Multivitamins Therapeutic (Theragran) 1 tab DAILY PO Last administered on 08:31; Admin Dose 1 TAB; Start 07/10/16 at 09:00 Olanzapine (Zyprexa) 5 mg QHS PO Last administered on 07/13/16 21:10; Admin Dose 5 MG; Start 07/09/16 at 21:00 Zinc Sulfate 220 mg 220 mg DAILY PO Last administered on 07/14/16 08:31; Admin Dose 220 MG; Start 07/10/16 at 09:00 Cefepime HCl (Maxipime 1gm/50 ml (Pmx)) 50 ml @ 100 mls/hr Q24H IVPB Last administered on 07/14/16 11:10; Admin Dose 100 MLS/HR; Start 07/10/16 at 10:00 Acetaminophen (Tylenol Supp) 650 mg Q6H PRN [place] ELEVATED TEMPERATURE Last administered on 07/10/16 09:51; Admin Dose 650 MG; Start 07/10/16 at 09:30 Collagenase (Santyl) 1 applic DAILY TOP Last administered on 07/14/16 08:31; Admin Dose 1 APPLIC; Start 07/10/16 at 14:00 Bisacodyl 10 mg 10 mg BID PO Last administered on 07/14/16 08:31; Admin Dose 10 MG; Start 07/13/16 at 15:00 Dextrose (D5W) 1,000 ml @ 100 mls/hr Q10H IV Last administered on 07/14/16 03 :25; Admin Dose 100 MLS/HR; Start 07/13/16 at 16:30 STEPHAN MELO MD July 14, 2016 12:28
[2016-07-14] MEDS: OLANZAPINE 5 MG TAB PO SCH (21:05)
[2016-07-14] MEDS: ATORVASTATIN 40 MG TAB PO SCH (21:05)
[2016-07-14] MEDS: LATANOPROST 0.005% 2.5 ML OPH BOTH EYES SCH (21:06)
[2016-07-15] VITALS (15 sets, daily range): BP systolic 139–195; BP diastolic 63–105; PULSE 69–106; RESP 16–22
[2016-07-15] MEDS: DEXTROSE 5% 1,000 ML IV SCH ×2 (05:13→17:53)
[2016-07-15] MEDS: PANTOPRAZOLE (EC) 40 MG TAB PO SCH ×2 (05:18→10:55)
[2016-07-15] MEDS ORDERED: VANCOMYCIN HCL 250 MG/5ML POSYG PO ONE (08:00)
--- NOTE | 2016-07-15 09:03 | PN ---
DATE: 07/12/2016 SUBJECTIVE: The patient had a mass in the sigmoid colon, probably due to fecal impaction. This has been getting resolved by GoLYTELY and enemas. Patient seems to have improved. LABORATORY DATA: His WBC count has dropped from 18,500 to 11,900 and his hemoglobin is stable aroun d 9.6. The patient is taking clear liquids and GoLYTELY, and agrees for colonoscopy, which will be planned tomorrow if he is cleared to see if there is any colon carcinoma or any other lesion obstructing the sigmoid colon. I have given instructions to the patient and the nurse, and he consents for the blu e procedure. Abdomen is otherwise benign. Dictated By: MALIKA LING/MEAGAN Conf#: [id number] DID#: [id number] CC: RONNIE PATEL MD; DARWIN CHANG MD;*EndCC*
[2016-07-15 10:08] LABS: ADD SCAN DIFF NO
[2016-07-15 10:12] LABS: BASOPHILS % 0.1 % (0.0-2.0); EOSINOPHILS # 0.4 10^3/ul (0.0-0.5); EOSINOPHILS % 3.5 % (0.0-7.0); HEMATOCRIT 26.4 % (42.0-52.0); HEMOGLOBIN 8.9 g/dl (14.0-18.0); LYMPHOCYTES # 1.1 10^3/ul (0.8-2.9); LYMPHOCYTES % 9.3 % (15.0-51.0); MEAN CORPUSCULAR HEMOGLOBIN 30.1 pg (29.0-33.0); MEAN CORPUSCULAR HGB CONC 33.7 g/dl (32.0-37.0); MEAN CORPUSCULAR VOLUME 89.2 fl (82.0-101.0); MEAN PLATELET VOLUME 8.9 fl (7.4-10.4); NEUTROPHIL # 9.5 10^3/ul (1.6-7.5); NEUTROPHILS % 78.4 % (39.0-77.0); PLATELET COUNT 257 10^3/UL (140-415); RED BLOOD COUNT 2.96 10^6/ul (4.70-6.10); RED CELL DISTRIBUTION WIDTH 13.3 % (11.5-14.5); WHITE BLOOD COUNT 12.1 10^3/ul (4.8-10.8)
[2016-07-15 10:28] LABS: CALCIUM 7.1 mg/dl (8.4-10.2); CREATININE 3.62 mg/dl (0.61-1.24)
--- NOTE | 2016-07-15 10:39 | CONS ---
Date/Time of Note Date/Time of Note DATE: 07/15/16 TIME: 10:37 Assessment/Plan Assessment/Plan Chief Complaint/Hosp Course - possible HCAP - SRAVANTHI, non-oliguric; CT abdomen does not show any hydronephrosis - metabolic acidosis - hypernatremia - hypokalemia - BPH - partially obstructive colonic mass/neoplasm at the level of the rectosigmoid junction on CT; R/o colon CA - HTN - COPD - loculated pleural effusion - HLD - H/o recent CVA - H/o recent UTI - dementia with behavioral disturbance - acute encephalopathy - improving - multiple decubiti Recommendations: - f/u cdiff - continue empiric cefepime -probably to complete a 7 day course - F/u procalcitonin, respiratory culture, influenza screen - probiotics Problems: Consultation Date/Type/Reason Admit Date/Time July 09, 2016 at 12:24 Type of Consultation: Infectious Disease Referring Provider: RONNIE PATEL MD 24 HR Interval Summary Free Text/Dictation late entry for 07.13.16 Exam/Review of Systems Vital Signs Vitals Vital Signs Date Time Temp Pulse Resp B/P Pulse Ox O2 Delivery O2 Flow Rate FiO2 07/15/16 08:31 92 07/15/16 07:08 98.3 182/90 93 07/15/16 04:27 20 07/14/16 22:23 Nasal Cannula 2.0 Intake and Output 07/14/16 07/14/16 07/15/16 15:00 23:00 07:00 Intake Total 1880 ml 2100 ml Output Total 700 ml 1200 ml Balance 1180 ml 900 ml Exam Constitutional: alert, oriented, well developed Psych: nl mood/affect, no complaints Eyes: EOMI, PERRL, nl conjunctiva, nl lids, nl sclera Neck: non-tender, supple Respiratory: clear to auscultation, normal air movement Gastrointestinal: nl liver, spleen, non-tender, soft Results Result Diagram: 07/15/16 1000 07/14/16 0550 Results 24 hrs Laboratory Tests Test 07/15/16 10:00 White Blood Count 12.1 H Red Blood Count 2.96 L Hemoglobin 8.9 L Hematocrit 26.4 L Mean Corpuscular Volume 89.2 Mean Corpuscular Hemoglobin 30.1 Mean Corpuscular Hemoglobin Concent 33.7 Red Cell Distribution Width 13.3 Platelet Count 257 Mean Platelet Volume 8.9 Neutrophils % 78.4 H Lymphocytes % 9.3 L Monocytes % 8.0 Eosinophils % 3.5 Basophils % 0.1 Nucleated Red Blood Cells % 0.0 Neutrophils # 9.5 H Lymphocytes # 1.1 Monocytes # 1.0 H Eosinophils # 0.4 Basophils # 0.0 Nucleated Red Blood Cells # 0.0 Medications Medications Current Medications Acetaminophen (Tylenol Tab) 500 mg Q6H PRN PO PAIN AND OR ELEVATED TEMP; Start 07/09/16 at 20:30 Ondansetron HCl (Zofran Inj) 4 mg Q6H PRN IV NAUSEA AND/OR VOMITING; Start at 20:30 Zolpidem Tartrate (Ambien) 5 mg HS PRN PO INSOMNIA; Start 07/09/16 at 20:30 Aspirin (Aspirin) 81 mg DAILY PO Last administered on 07/14/16 08:30; Admin Dose 81 MG; Start 07/10/16 at 09:00 Atorvastatin Calcium (Lipitor) 40 mg QHS PO Last administered on 07/14/16 21: 05; Admin Dose 40 MG; Start 07/09/16 at 21:00 Benztropine Mesylate (Cogentin) 1 mg BID PO Last administered on 07/14/16 21: 05; Admin Dose 1 MG; Start 07/09/16 at 21:00 Clonidine (Catapres) 0.1 mg Q6 PRN PO SBP ABOVE 160; Start 07/09/16 at 20:30 Finasteride (Proscar) 5 mg DAILY PO Last administered on 07/14/16 08:30; Admin Dose 5 MG; Start 07/10/16 at 09:00 Acetaminophen/ Hydrocodone Bitart ([place] (5/325)) 1 tab Q4 PRN PO SEVERE PAIN LEVEL 7-10; Start 07/09/16 at 20:30 Latanoprost (Xalatan) 1 drop QHS BOTH EYES Last administered on 07/14/16 21:06 ; Admin Dose 1 DROP; Start 07/09/16 at 21:00 Multivitamins Therapeutic (Theragran) 1 tab DAILY PO Last administered on 08:31; Admin Dose 1 TAB; Start 07/10/16 at 09:00 Olanzapine (Zyprexa) 5 mg QHS PO Last administered on 07/14/16 21:05; Admin Dose 5 MG; Start 07/09/16 at 21:00 Zinc Sulfate 220 mg 220 mg DAILY PO Last administered on 07/14/16 08:31; Admin Dose 220 MG; Start 07/10/16 at 09:00 Cefepime HCl (Maxipime 1gm/50 ml (Pmx)) 50 ml @ 100 mls/hr Q24H IVPB Last administered on 07/14/16 11:10; Admin Dose 100 MLS/HR; Start 07/10/16 at 10:00 Acetaminophen (Tylenol Supp) 650 mg Q6H PRN [place] ELEVATED TEMPERATURE Last administered on 07/10/16 09:51; Admin Dose 650 MG; Start 07/10/16 at 09:30 Collagenase (Santyl) 1 applic DAILY TOP Last administered on 07/14/16 08:31; Admin Dose 1 APPLIC; Start 07/10/16 at 14:00 Bisacodyl 10 mg 10 mg BID PO Last administered on 07/14/16 21:05; Admin Dose 10 MG; Start 07/13/16 at 15:00 Dextrose (D5W) 1,000 ml @ 100 mls/hr Q10H IV Last administered on 07/15/16 05 :13; Admin Dose 100 MLS/HR; Start 07/13/16 at 16:30 Vancomycin HCl (Vancomycin Oral Syringe) 250 mg 12 PO Last administered on 07/15 09:31; Admin Dose 250 MG; Start 07/15/16 at 12:00; Stop 07/15/16 at 12:01 ALVA GEE MD July 15, 2016 10:39
[2016-07-15 10:46] LABS: POTASSIUM 2.4 mmol/L (3.5-5.1)
[2016-07-15] MEDS: CEFEPIME 1GM/50 ML (PMX) 50 ML IVPB SCH (10:54)
[2016-07-15] MEDS: BENZTROPINE 1 MG TAB PO SCH ×2 (10:54→20:13)
[2016-07-15] MEDS: MULTIVITAMINS THERAPEUTIC TAB PO SCH (10:55)
[2016-07-15] MEDS: FINASTERIDE 5 MG TAB PO SCH (10:55)
[2016-07-15] MEDS: BISACODYL (EC) 5 MG TAB PO SCH ×2 (10:55→20:13)
[2016-07-15] MEDS: ZINC SULFATE 220 MG CAP PO SCH (10:55)
[2016-07-15] MEDS: ASPIRIN 81 MG TAB PO SCH (10:55)
[2016-07-15] MEDS: COLLAGENASE 30 GM TUBE TOP SCH (10:56)
--- NOTE | 2016-07-15 10:58 | CONS ---
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 Dw Dr Henderson/staff Consultation Date/Type/Reason Admit Date/Time July 09, 2016 at 12:24 Initial Consult Date 07/11/16 Type of Consultation: Infectious Disease Referring Provider: RONNIE PATEL MD 24 HR Interval Summary Free Text/Dictation late entry- 07/14/2016 Exam/Review of Systems Vital Signs Vitals Vital Signs Date Time Temp Pulse Resp B/P Pulse Ox O2 Delivery O2 Flow Rate FiO2 07/15/16 08:31 92 07/15/16 08:30 Nasal Cannula 2.0 07/15/16 07:08 98.3 182/90 93 07/15/16 04:27 20 Intake and Output 07/14/16 07/14/16 07/15/16 15:00 23:00 07:00 Intake Total 1880 ml 2100 ml Output Total 700 ml 1200 ml Balance 1180 ml 900 ml Results Result Diagram: 07/15/16 1000 07/15/16 1000 Results 24 hrs Laboratory Tests Test 07/15/16 10:00 White Blood Count 12.1 H Red Blood Count 2.96 L Hemoglobin 8.9 L Hematocrit 26.4 L Mean Corpuscular Volume 89.2 Mean Corpuscular Hemoglobin 30.1 Mean Corpuscular Hemoglobin Concent 33.7 Red Cell Distribution Width 13.3 Platelet Count 257 Mean Platelet Volume 8.9 Neutrophils % 78.4 H Lymphocytes % 9.3 L Monocytes % 8.0 Eosinophils % 3.5 Basophils % 0.1 Nucleated Red Blood Cells % 0.0 Neutrophils # 9.5 H Lymphocytes # 1.1 Monocytes # 1.0 H Eosinophils # 0.4 Basophils # 0.0 Nucleated Red Blood Cells # 0.0 Sodium Level 143 Potassium Level 2.4 *L Chloride Level 118 H Carbon Dioxide Level 20 L Anion Gap 7 L Blood Urea Nitrogen 83 H Creatinine 3.62 H Glucose Level 103 Calcium Level 7.1 L Medications Medications Current Medications Acetaminophen (Tylenol Tab) 500 mg Q6H PRN PO PAIN AND OR ELEVATED TEMP; Start 07/09/16 at 20:30 Ondansetron HCl (Zofran Inj) 4 mg Q6H PRN IV NAUSEA AND/OR VOMITING; Start at 20:30 Zolpidem Tartrate (Ambien) 5 mg HS PRN PO INSOMNIA; Start 07/09/16 at 20:30 Aspirin (Aspirin) 81 mg DAILY PO Last administered on 07/14/16 08:30; Admin Dose 81 MG; Start 07/10/16 at 09:00 Atorvastatin Calcium (Lipitor) 40 mg QHS PO Last administered on 07/14/16 21: 05; Admin Dose 40 MG; Start 07/09/16 at 21:00 Benztropine Mesylate (Cogentin) 1 mg BID PO Last administered on 07/14/16 21: 05; Admin Dose 1 MG; Start 07/09/16 at 21:00 Clonidine (Catapres) 0.1 mg Q6 PRN PO SBP ABOVE 160; Start 07/09/16 at 20:30 Finasteride (Proscar) 5 mg DAILY PO Last administered on 07/14/16 08:30; Admin Dose 5 MG; Start 07/10/16 at 09:00 Acetaminophen/ Hydrocodone Bitart ([place] (5/325)) 1 tab Q4 PRN PO SEVERE PAIN LEVEL 7-10; Start 07/09/16 at 20:30 Latanoprost (Xalatan) 1 drop QHS BOTH EYES Last administered on 07/14/16 21:06 ; Admin Dose 1 DROP; Start 07/09/16 at 21:00 Multivitamins Therapeutic (Theragran) 1 tab DAILY PO Last administered on 08:31; Admin Dose 1 TAB; Start 07/10/16 at 09:00 Olanzapine (Zyprexa) 5 mg QHS PO Last administered on 07/14/16 21:05; Admin Dose 5 MG; Start 07/09/16 at 21:00 Zinc Sulfate 220 mg 220 mg DAILY PO Last administered on 07/14/16 08:31; Admin Dose 220 MG; Start 07/10/16 at 09:00 Cefepime HCl (Maxipime 1gm/50 ml (Pmx)) 50 ml @ 100 mls/hr Q24H IVPB Last administered on 07/14/16 11:10; Admin Dose 100 MLS/HR; Start 07/10/16 at 10:00 Acetaminophen (Tylenol Supp) 650 mg Q6H PRN [place] ELEVATED TEMPERATURE Last administered on 07/10/16 09:51; Admin Dose 650 MG; Start 07/10/16 at 09:30 Collagenase (Santyl) 1 applic DAILY TOP Last administered on 07/14/16 08:31; Admin Dose 1 APPLIC; Start 07/10/16 at 14:00 Bisacodyl 10 mg 10 mg BID PO Last administered on 07/14/16 21:05; Admin Dose 10 MG; Start 07/13/16 at 15:00 Dextrose (D5W) 1,000 ml @ 100 mls/hr Q10H IV Last administered on 07/15/16 05 :13; Admin Dose 100 MLS/HR; Start 07/13/16 at 16:30 Vancomycin HCl (Vancomycin Oral Syringe) 250 mg 12 PO Last administered on 07/15 09:31; Admin Dose 250 MG; Start 07/15/16 at 12:00; Stop 07/15/16 at 12:01 ISAEL CRYTSAL July 15, 2016 10:58
[2016-07-15] MEDS ORDERED: VANCOMYCIN HCL 250 MG/5ML POSYG PO SCH (12:00)
[2016-07-15] MEDS ORDERED: POTASSIUM CHLORIDE 250 ML IVPB STA ×2 (12:20→17:36)
[2016-07-15] MEDS: VANCOMYCIN HCL 250 MG/5ML POSYG PO SCH ×2 (12:56→17:19)
--- NOTE | 2016-07-15 13:58 | CONS ---
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; R/o colon CA - HTN - COPD - loculated pleural effusion - HLD - H/o recent CVA - H/o recent UTI - dementia with behavioral disturbance - acute encephalopathy - improving - multiple decubiti recommendations: - collect wound culture of b/l heel, X ray to r/o fracture - limited one view only (ordered) - continue empiric cefepime (07/10/2016-); will adjust it depending on the results of his wound cultutre - continue PO vancomycin (02/14/2017-) while Pt's on broad spectrum antibiotics management d/w Pt and his RN Problems: Consultation Date/Type/Reason Admit Date/Time July 09, 2016 at 12:24 Initial Consult Date 07/11/16 Type of Consultation: Infectious Disease Referring Provider: RONNIE PATEL MD 24 HR Interval Summary Constitutional: no complaints Detailed Summary Eyes: no complaints ENT: no complaints Respiratory: no complaints Cardiovascular: no complaints Gastrointestinal: diarrhea ("a few") Genitourinary: other (FC) Musculoskeletal: no complaints Skin: skin lesions (pain from b/l heel upon dressing change) Exam/Review of Systems Vital Signs Vitals Vital Signs Date Time Temp Pulse Resp B/P Pulse Ox O2 Delivery O2 Flow Rate FiO2 07/15/16 12:39 76 07/15/16 11:16 98.4 16 187/86 97 07/15/16 08:30 Nasal Cannula 2.0 Intake and Output 07/14/16 07/14/16 07/15/16 15:00 23:00 07:00 Intake Total 50 ml 1880 ml 2100 ml Output Total 700 ml 1200 ml Balance 50 ml 1180 ml 900 ml Exam Constitutional: frail Psych: confusion Head: atraumatic, normocephalic Eyes: nl conjunctiva, nl lids ENMT: nl external ears & nose, nl nasal mucosa & septum Neck: supple Respiratory: clear to auscultation, normal air movement Cardiovascular: nl pulses, regular rate and rhythm Gastrointestinal: non-tender, soft Genitourinary - Male: other (FC) Musculoskeletal: No swelling Extremities: No edema Neurological: confused, lethargic Skin: rash or lesions (eschar on b/l heel, surrounded by erythematous rim) Results Result Diagram: 07/15/16 1000 07/15/16 1000 Results 24 hrs Laboratory Tests Test 07/15/16 10:00 White Blood Count 12.1 H Red Blood Count 2.96 L Hemoglobin 8.9 L Hematocrit 26.4 L Mean Corpuscular Volume 89.2 Mean Corpuscular Hemoglobin 30.1 Mean Corpuscular Hemoglobin Concent 33.7 Red Cell Distribution Width 13.3 Platelet Count 257 Mean Platelet Volume 8.9 Neutrophils % 78.4 H Lymphocytes % 9.3 L Monocytes % 8.0 Eosinophils % 3.5 Basophils % 0.1 Nucleated Red Blood Cells % 0.0 Neutrophils # 9.5 H Lymphocytes # 1.1 Monocytes # 1.0 H Eosinophils # 0.4 Basophils # 0.0 Nucleated Red Blood Cells # 0.0 Sodium Level 143 Potassium Level 2.4 *L Chloride Level 118 H Carbon Dioxide Level 20 L Anion Gap 7 L Blood Urea Nitrogen 83 H Creatinine 3.62 H Glucose Level 103 Calcium Level 7.1 L Medications Medications Current Medications Acetaminophen (Tylenol Tab) 500 mg Q6H PRN PO PAIN AND OR ELEVATED TEMP; Start 07/09/16 at 20:30 Ondansetron HCl (Zofran Inj) 4 mg Q6H PRN IV NAUSEA AND/OR VOMITING; Start at 20:30 Zolpidem Tartrate (Ambien) 5 mg HS PRN PO INSOMNIA; Start 07/09/16 at 20:30 Aspirin (Aspirin) 81 mg DAILY PO Last administered on 07/15/16 10:55; Admin Dose 81 MG; Start 07/10/16 at 09:00 Atorvastatin Calcium (Lipitor) 40 mg QHS PO Last administered on 07/14/16 21: 05; Admin Dose 40 MG; Start 07/09/16 at 21:00 Benztropine Mesylate (Cogentin) 1 mg BID PO Last administered on 07/15/16 10: 54; Admin Dose 1 MG; Start 07/09/16 at 21:00 Clonidine (Catapres) 0.1 mg Q6 PRN PO SBP ABOVE 160; Start 07/09/16 at 20:30 Finasteride (Proscar) 5 mg DAILY PO Last administered on 07/15/16 10:55; Admin Dose 5 MG; Start 07/10/16 at 09:00 Acetaminophen/ Hydrocodone Bitart ([place] (5/325)) 1 tab Q4 PRN PO SEVERE PAIN LEVEL 7-10; Start 07/09/16 at 20:30 Latanoprost (Xalatan) 1 drop QHS BOTH EYES Last administered on 07/14/16 21:06 ; Admin Dose 1 DROP; Start 07/09/16 at 21:00 Multivitamins Therapeutic (Theragran) 1 tab DAILY PO Last administered on 10:55; Admin Dose 1 TAB; Start 07/10/16 at 09:00 Olanzapine (Zyprexa) 5 mg QHS PO Last administered on 07/14/16 21:05; Admin Dose 5 MG; Start 07/09/16 at 21:00 Zinc Sulfate 220 mg 220 mg DAILY PO Last administered on 07/15/16 10:55; Admin Dose 220 MG; Start 07/10/16 at 09:00 Cefepime HCl (Maxipime 1gm/50 ml (Pmx)) 50 ml @ 100 mls/hr Q24H IVPB Last administered on 07/15/16 10:54; Admin Dose 100 MLS/HR; Start 07/10/16 at 10:00 Acetaminophen (Tylenol Supp) 650 mg Q6H PRN [place] ELEVATED TEMPERATURE Last administered on 07/10/16 09:51; Admin Dose 650 MG; Start 07/10/16 at 09:30 Collagenase (Santyl) 1 applic DAILY TOP Last administered on 07/15/16 10:56; Admin Dose 1 APPLIC; Start 07/10/16 at 14:00 Bisacodyl 10 mg 10 mg BID PO Last administered on 07/15/16 10:55; Admin Dose 10 MG; Start 07/13/16 at 15:00 Dextrose (D5W) 1,000 ml @ 100 mls/hr Q10H IV Last administered on 07/15/16 05 :13; Admin Dose 100 MLS/HR; Start 07/13/16 at 16:30 Vancomycin HCl (Vancomycin Oral Syringe) 250 mg Q6 PO Last administered on 07/15t 12:56; Admin Dose 250 MG; Start 07/15/16 at 12:00 JERO GALAN M.D. July 15, 2016 13:58
--- NOTE | 2016-07-15 15:18 | RADRPT ---
PROCEDURE: XR Foot. CLINICAL INDICATION: Evaluate for fracture, osteomyelitis TECHNIQUE: AP, lateral and oblique views of the left foot was obtained. The images were reviewed on a PACS workstation. COMPARISON: None. FINDINGS: The bones of the foot appear intact, with no evidence of fracture, dislocation, or subluxation. The joint spaces are preserved. The bone mineralization is normal. No significant soft tissue swelling is seen. RPTAT: AA IMPRESSION: Unremarkable left foot radiographs. Physician Zach Date Time Electronically viewed and signed by Physician Zach on 07/15/2016 15:18 RA/
--- NOTE | 2016-07-15 15:19 | RADRPT ---
PROCEDURE: XR Foot. CLINICAL INDICATION: r/o fracutre, osteomyelitis TECHNIQUE: AP, lateral and oblique views of the right foot was obtained. The images were reviewed on a PACS workstation. COMPARISON: None. FINDINGS: The bones of the foot appear intact, with no evidence of acute fracture, dislocation, or subluxation . The joint spaces are preserved. Bone mineralization is normal. No significant soft tissue swelling is seen. IMPRESSION: Unremarkable right foot radiographs. RPTAT: EE Physician Zach Date Time Electronically viewed and signed by Physician Zach on 07/15/2016 15:18 RA/
--- NOTE | 2016-07-15 15:20 | RADRPT ---
PROCEDURE: XR Chest. CLINICAL INDICATION: PNEUMONIA TECHNIQUE: Single frontal view of the chest was obtained. COMPARISON: Chest x-ray from 07/13/2016 FINDINGS: The heart and mediastinum are within normal limits. The aortic arch is calcified. There is decreased prominence of patchy opacities at the right lung base, possibly indicating an imp roving pneumonia. There is a stable small loculated effusion at the inferior aspect of the right lat eral thoracic wall. There is a stable small left pleural effusion and retrocardiac opacity due to atelectasis, infiltrat e, and / or effusion. IMPRESSION: Improving pneumonia at the right lung base with a stable small loculated right pleural effusion. Stable small left pleural effusion and retrocardiac opacity due to atelectasis, infiltrate, and / or effusion. Aortic atherosclerosis. RPTAT: EE Physician Zach Date Time Electronically viewed and signed by Physician Zach on 07/15/2016 15:20 /
[2016-07-15] MEDS ORDERED: hydrALAzine 20 MG INJ IV ONE (18:30)
--- NOTE | 2016-07-15 19:20 | PN ---
Date/Time of Note Date/Time of Note DATE: 07/15/16 TIME: 19:14 Assessment/Plan VTE Prophylaxis VTE Prophylaxis Intervention: SCD's Lines/Catheters IV Catheter Type (from [facility]): Peripheral IV Urinary Cath still in place: Yes Reason Cath still needed: urinary retention Assessment/Plan Chief Complaint/Hosp Course Assessment/Plan - C. difficile colitis. Dr. Henderson is following infection disease consultation. Continue antibiotics per ID. - Acute kidney injury, etiology unknown. Dr. Srinivasan is following in nephrology consultation. - Acute metabolic encephalopathy, resolving. - Hypertension. - Chronic obstructive pulmonary disease. - Benign prostatic hypertrophy. Continue Flomax. - Loculated pleural effusion. Continue to monitor chest x-ray. - Multiple decubitus ulcers. Continue current wound care - Acute cerebrovascular accident. Continue aspirin. - Dyslipidemia. Continue Lipitor. - Dementia with behavioral disturbance. Continue Zyprexa. Further recommendations based on clinical course. Plan of care discussed with Dr. Rene. Problems: Exam/Review of Systems Vital Signs Vitals Vital Signs Date Time Temp Pulse Resp B/P Pulse Ox O2 Delivery O2 Flow Rate FiO2 07/15/16 18:34 178/91 07/15/16 17:13 77 07/15/16 15:13 97.8 22 97 07/15/16 08:30 Nasal Cannula 2.0 Intake and Output 07/14/16 07/14/16 07/15/16 15:00 23:00 07:00 Intake Total 50 ml 1880 ml 2100 ml Output Total 700 ml 1200 ml Balance 50 ml 1180 ml 900 ml Exam Constitutional: alert, frail Psych: confusion Neck: supple Respiratory: clear to auscultation Cardiovascular: nl pulses, regular rate and rhythm Gastrointestinal: non-tender, soft Genitourinary - Male: other Skin: other (Both wounds) Results Result Diagram: 07/15/16 1000 07/15/16 1655 Results 24 hrs Laboratory Tests Test 07/15/16 10:00 07/15/16 16:55 White Blood Count 12.1 H Red Blood Count 2.96 L Hemoglobin 8.9 L Hematocrit 26.4 L Mean Corpuscular Volume 89.2 Mean Corpuscular Hemoglobin 30.1 Mean Corpuscular Hemoglobin Concent 33.7 Red Cell Distribution Width 13.3 Platelet Count 257 Mean Platelet Volume 8.9 Neutrophils % 78.4 H Lymphocytes % 9.3 L Monocytes % 8.0 Eosinophils % 3.5 Basophils % 0.1 Nucleated Red Blood Cells % 0.0 Neutrophils # 9.5 H Lymphocytes # 1.1 Monocytes # 1.0 H Eosinophils # 0.4 Basophils # 0.0 Nucleated Red Blood Cells # 0.0 Sodium Level 143 Potassium Level 2.4 *L 2.9 *L Chloride Level 118 H Carbon Dioxide Level 20 L Anion Gap 7 L Blood Urea Nitrogen 83 H Creatinine 3.62 H Glucose Level 103 Calcium Level 7.1 L Medications Medications Current Medications Acetaminophen (Tylenol Tab) 500 mg Q6H PRN PO PAIN AND OR ELEVATED TEMP; Start 07/09/16 at 20:30 Ondansetron HCl (Zofran Inj) 4 mg Q6H PRN IV NAUSEA AND/OR VOMITING; Start at 20:30 Zolpidem Tartrate (Ambien) 5 mg HS PRN PO INSOMNIA; Start 07/09/16 at 20:30 Aspirin (Aspirin) 81 mg DAILY PO Last administered on 07/15/16 10:55; Admin Dose 81 MG; Start 07/10/16 at 09:00 Atorvastatin Calcium (Lipitor) 40 mg QHS PO Last administered on 07/14/16 21: 05; Admin Dose 40 MG; Start 07/09/16 at 21:00 Benztropine Mesylate (Cogentin) 1 mg BID PO Last administered on 07/15/16 10: 54; Admin Dose 1 MG; Start 07/09/16 at 21:00 Clonidine (Catapres) 0.1 mg Q6 PRN PO SBP ABOVE 160 Last administered on 15:29; Admin Dose 0.1 MG; Start 07/09/16 at 20:30 Finasteride (Proscar) 5 mg DAILY PO Last administered on 07/15/16 10:55; Admin Dose 5 MG; Start 07/10/16 at 09:00 Acetaminophen/ Hydrocodone Bitart ([place] (5/325)) 1 tab Q4 PRN PO SEVERE PAIN LEVEL 7-10 Last administered on 07/15/16 16:21; Admin Dose 1 TAB; Start at 20:30 Latanoprost (Xalatan) 1 drop QHS BOTH EYES Last administered on 07/14/16 21:06 ; Admin Dose 1 DROP; Start 07/09/16 at 21:00 Multivitamins Therapeutic (Theragran) 1 tab DAILY PO Last administered on 10:55; Admin Dose 1 TAB; Start 07/10/16 at 09:00 Olanzapine (Zyprexa) 5 mg QHS PO Last administered on 07/14/16 21:05; Admin Dose 5 MG; Start 07/09/16 at 21:00 Zinc Sulfate 220 mg 220 mg DAILY PO Last administered on 07/15/16 10:55; Admin Dose 220 MG; Start 07/10/16 at 09:00 Cefepime HCl (Maxipime 1gm/50 ml (Pmx)) 50 ml @ 100 mls/hr Q24H IVPB Last administered on 07/15/16 10:54; Admin Dose 100 MLS/HR; Start 07/10/16 at 10:00 Acetaminophen (Tylenol Supp) 650 mg Q6H PRN [place] ELEVATED TEMPERATURE Last administered on 07/10/16 09:51; Admin Dose 650 MG; Start 07/10/16 at 09:30 Collagenase (Santyl) 1 applic DAILY TOP Last administered on 07/15/16 10:56; Admin Dose 1 APPLIC; Start 07/10/16 at 14:00 Bisacodyl 10 mg 10 mg BID PO Last administered on 07/15/16 10:55; Admin Dose 10 MG; Start 07/13/16 at 15:00 Dextrose (D5W) 1,000 ml @ 100 mls/hr Q10H IV Last administered on 07/15/16 17 :53; Admin Dose 100 MLS/HR; Start 07/13/16 at 16:30 ALE CMCONNELL July 15, 2016 19:20
[2016-07-15] MEDS: OLANZAPINE 5 MG TAB PO SCH (20:13)
[2016-07-15] MEDS: ATORVASTATIN 40 MG TAB PO SCH (20:13)
[2016-07-15] MEDS: LATANOPROST 0.005% 2.5 ML OPH BOTH EYES SCH (20:13)
--- NOTE | 2016-07-15 22:32 | CONS ---
Date/Time of Note Date/Time of Note DATE: 07/15/16 TIME: 22:31 Assessment/Plan Assessment/Plan Chief Complaint/Hosp Course Pt needs close f/u Problems: Additional Assessment/Plan Last CXR several days ago, last SNa 133, will rpt cxr today May have to cut down lasix for now & continue monitoring renal fn closely. Cont'd Hospitalization Reason: Pt followed by Id, GI & had EEG suggesting encephalopathy Consultation Date/Type/Reason Admit Date/Time July 09, 2016 at 12:24 Initial Consult Date 07/11/16 Type of Consultation: renal Referring Provider: RONNIE PATEL MD 24 HR Interval Summary Free Text/Dictation not very communicative Exam/Review of Systems Vital Signs Vitals Vital Signs Date Time Temp Pulse Resp B/P Pulse Ox O2 Delivery O2 Flow Rate FiO2 07/15/16 20:12 98.2 91 18 184/105 93 07/15/16 08:30 Nasal Cannula 2.0 Intake and Output 07/14/16 07/14/16 07/15/16 15:00 23:00 07:00 Intake Total 50 ml 1880 ml 2100 ml Output Total 700 ml 1200 ml Balance 50 ml 1180 ml 900 ml Exam Constitutional: alert, oriented, well developed Psych: nl mood/affect, no complaints Head: atraumatic, normocephalic Eyes: EOMI, PERRL, nl conjunctiva, nl lids, nl sclera ENMT: nl external ears & nose, nl lips & teeth, nl nasal mucosa & septum Neck: jvd (decreased air entry bilaterally), non-tender, supple Respiratory: clear to auscultation, normal air movement, other Cardiovascular: nl pulses, regular rate and rhythm Gastrointestinal: nl liver, spleen, non-tender, other (Pt with mass at rectosigmoid jn per GI), soft Genitourinary - Male: other (tellez i n place) Musculoskeletal: nl extremities to inspection, nl gait and stance Extremities: normal pulses, other (bilateral heel ulcers) Neurological: FINISH MIXER II-XII intact, confused (Encephalopathy), nl mental status, nl speech, nl strength Skin: nl turgor, other (Pale), No rash or lesions Lymph: nl lymph nodes Results Note low Hct 26% BUN/Creat may have stabilized Result Diagram: 07/15/16 1000 07/15/16 8905 Results 24 hrs Laboratory Tests Test 07/15/16 10:00 07/15/16 16:55 White Blood Count 12.1 H Red Blood Count 2.96 L Hemoglobin 8.9 L Hematocrit 26.4 L Mean Corpuscular Volume 89.2 Mean Corpuscular Hemoglobin 30.1 Mean Corpuscular Hemoglobin Concent 33.7 Red Cell Distribution Width 13.3 Platelet Count 257 Mean Platelet Volume 8.9 Neutrophils % 78.4 H Lymphocytes % 9.3 L Monocytes % 8.0 Eosinophils % 3.5 Basophils % 0.1 Nucleated Red Blood Cells % 0.0 Neutrophils # 9.5 H Lymphocytes # 1.1 Monocytes # 1.0 H Eosinophils # 0.4 Basophils # 0.0 Nucleated Red Blood Cells # 0.0 Sodium Level 143 Potassium Level 2.4 *L 2.9 *L Chloride Level 118 H Carbon Dioxide Level 20 L Anion Gap 7 L Blood Urea Nitrogen 83 H Creatinine 3.62 H Glucose Level 103 Calcium Level 7.1 L Medications Medications Current Medications Acetaminophen (Tylenol Tab) 500 mg Q6H PRN PO PAIN AND OR ELEVATED TEMP; Start 07/09/16 at 20:30 Ondansetron HCl (Zofran Inj) 4 mg Q6H PRN IV NAUSEA AND/OR VOMITING; Start at 20:30 Zolpidem Tartrate (Ambien) 5 mg HS PRN PO INSOMNIA; Start 07/09/16 at 20:30 Aspirin (Aspirin) 81 mg DAILY PO Last administered on 07/15/16 10:55; Admin Dose 81 MG; Start 07/10/16 at 09:00 Atorvastatin Calcium (Lipitor) 40 mg QHS PO Last administered on 07/15/16 20: 13; Admin Dose 40 MG; Start 07/09/16 at 21:00 Benztropine Mesylate (Cogentin) 1 mg BID PO Last administered on 07/15/16 20: 13; Admin Dose 1 MG; Start 07/09/16 at 21:00 Clonidine (Catapres) 0.1 mg Q6 PRN PO SBP ABOVE 160 Last administered on 15:29; Admin Dose 0.1 MG; Start 07/09/16 at 20:30 Finasteride (Proscar) 5 mg DAILY PO Last administered on 07/15/16 10:55; Admin Dose 5 MG; Start 07/10/16 at 09:00 Acetaminophen/ Hydrocodone Bitart ([place] (5/325)) 1 tab Q4 PRN PO SEVERE PAIN LEVEL 7-10 Last administered on 07/15/16 16:21; Admin Dose 1 TAB; Start at 20:30 Latanoprost (Xalatan) 1 drop QHS BOTH EYES Last administered on 07/15/16 20:13 ; Admin Dose 1 DROP; Start 07/09/16 at 21:00 Multivitamins Therapeutic (Theragran) 1 tab DAILY PO Last administered on 10:55; Admin Dose 1 TAB; Start 07/10/16 at 09:00 Olanzapine (Zyprexa) 5 mg QHS PO Last administered on 07/15/16 20:13; Admin Dose 5 MG; Start 07/09/16 at 21:00 Zinc Sulfate 220 mg 220 mg DAILY PO Last administered on 07/15/16 10:55; Admin Dose 220 MG; Start 07/10/16 at 09:00 Cefepime HCl (Maxipime 1gm/50 ml (Pmx)) 50 ml @ 100 mls/hr Q24H IVPB Last administered on 07/15/16 10:54; Admin Dose 100 MLS/HR; Start 07/10/16 at 10:00 Acetaminophen (Tylenol Supp) 650 mg Q6H PRN [place] ELEVATED TEMPERATURE Last administered on 07/10/16 09:51; Admin Dose 650 MG; Start 07/10/16 at 09:30 Collagenase (Santyl) 1 applic DAILY TOP Last administered on 07/15/16 10:56; Admin Dose 1 APPLIC; Start 07/10/16 at 14:00 Bisacodyl 10 mg 10 mg BID PO Last administered on 07/15/16 20:13; Admin Dose 10 MG; Start 07/13/16 at 15:00 Dextrose (D5W) 1,000 ml @ 100 mls/hr Q10H IV Last administered on 07/15/16 17 :53; Admin Dose 100 MLS/HR; Start 07/13/16 at 16:30 JUANA AYALA MD July 15, 2016 22:32
[2016-07-15] MEDS: NIFEdipine (XL) 30 MG TAB PO SCH (23:15)
[2016-07-16] VITALS (15 sets, daily range): BP systolic 121–165; BP diastolic 63–82; PULSE 49–67; RESP 15–19
[2016-07-16] MEDS: DEXTROSE 5% 1,000 ML IV SCH ×2 (00:39→14:46)
[2016-07-16 07:32] LABS: ADD SCAN DIFF NO
[2016-07-16 07:44] LABS: BASOPHILS % 0.1 % (0.0-2.0); EOSINOPHILS # 0.5 10^3/ul (0.0-0.5); EOSINOPHILS % 4.1 % (0.0-7.0); HEMATOCRIT 26.8 % (42.0-52.0); HEMOGLOBIN 8.9 g/dl (14.0-18.0); LYMPHOCYTES # 1.3 10^3/ul (0.8-2.9); LYMPHOCYTES % 11.3 % (15.0-51.0); MEAN CORPUSCULAR HEMOGLOBIN 29.7 pg (29.0-33.0); MEAN CORPUSCULAR HGB CONC 33.2 g/dl (32.0-37.0); MEAN CORPUSCULAR VOLUME 89.3 fl (82.0-101.0); MEAN PLATELET VOLUME 9.8 fl (7.4-10.4); MONOCYTES % 8.1 % (0.0-11.0); NEUTROPHIL # 8.8 10^3/ul (1.6-7.5); NEUTROPHILS % 75.5 % (39.0-77.0); PLATELET COUNT 268 10^3/UL (140-415); RED CELL DISTRIBUTION WIDTH 13.5 % (11.5-14.5); WHITE BLOOD COUNT 11.7 10^3/ul (4.8-10.8)
[2016-07-16 08:01] LABS: CREATININE 3.55 mg/dl (0.61-1.24)
[2016-07-16 08:02] LABS: CALCIUM 7.3 mg/dl (8.4-10.2); POTASSIUM 2.8 mmol/L (3.5-5.1)
[2016-07-16] MEDS: BISACODYL (EC) 5 MG TAB PO SCH ×2 (08:52→21:16)
[2016-07-16] MEDS: BENZTROPINE 1 MG TAB PO SCH ×2 (08:52→21:16)
[2016-07-16] MEDS: ASPIRIN 81 MG TAB PO SCH (08:52)
[2016-07-16] MEDS: MULTIVITAMINS THERAPEUTIC TAB PO SCH (08:52)
[2016-07-16] MEDS: NIFEdipine (XL) 30 MG TAB PO SCH ×2 (08:53→21:17)
[2016-07-16] MEDS: BENAZEPRIL 20 MG TAB PO SCH (08:53)
[2016-07-16] MEDS: COLLAGENASE 30 GM TUBE TOP SCH (08:56)
[2016-07-16] MEDS: FINASTERIDE 5 MG TAB PO SCH (08:56)
[2016-07-16] MEDS: ZINC SULFATE 220 MG CAP PO SCH (08:56)
[2016-07-16] MEDS: CEFEPIME 1GM/50 ML (PMX) 50 ML IVPB SCH (09:02)
[2016-07-16] MEDS ORDERED: POTASSIUM CHLORIDE 250 ML IVPB ONE (09:30)
--- NOTE | 2016-07-16 09:51 | CONS ---
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 on CT; R/o colon CA - HTN - COPD - loculated pleural effusion - HLD - H/o recent CVA - H/o recent UTI - dementia with behavioral disturbance - acute encephalopathy - improving - multiple decubiti recommendations: - I ordered wound culture of b/l heel yesterday and endorsed Pt's RN but [facility] [employer] leeanna confirmed that lab has not received wound cultures - I re-ordered them and asked Pt's RN today to collect them this morning - continue empiric, renally dosed cefepime (07/10/2016-); will adjust it depending on the results of his wound cultures - continue PO vancomycin (02/14/2017-) while Pt's on broad spectrum antibiotics management d/w Pt's RN Problems: Consultation Date/Type/Reason Admit Date/Time July 09, 2016 at 12:24 Initial Consult Date 07/11/16 Type of Consultation: ID Referring Provider: RONNIE PATEL MD 24 HR Interval Summary Free Text/Dictation colonoscopy was postponed due to hypokalemia Subjective hx not possible: pt non-verbal Exam/Review of Systems Vital Signs Vitals Vital Signs Date Time Temp Pulse Resp B/P Pulse Ox O2 Delivery O2 Flow Rate FiO2 07/16/16 08:49 61 07/16/16 07:43 98.1 19 165/72 93 07/15/16 22:00 Nasal Cannula 2.0 Intake and Output 07/15/16 07/15/16 07/16/16 15:00 23:00 07:00 Intake Total 1000 ml 1750 ml Output Total 800 ml 950 ml Balance 200 ml 800 ml Exam Constitutional: frail, non-verbal Psych: confusion Head: normocephalic Eyes: nl lids ENMT: nl external ears & nose, nl nasal mucosa & septum Respiratory: clear to auscultation, normal air movement Cardiovascular: nl pulses, regular rate and rhythm Gastrointestinal: non-tender, soft Extremities: pitting pedal edema Neurological: lethargic Skin: rash or lesions (eschar of b/l heel) Results Result Diagram: 07/16/16 0638 07/16/16 0638 Results 24 hrs Laboratory Tests Test 07/15/16 10:00 07/15/16 16:55 07/16/16 06:38 White Blood Count 12.1 H 11.7 H Red Blood Count 2.96 L 3.00 L Hemoglobin 8.9 L 8.9 L Hematocrit 26.4 L 26.8 L Mean Corpuscular Volume 89.2 89.3 Mean Corpuscular Hemoglobin 30.1 29.7 Mean Corpuscular Hemoglobin Concent 33.7 33.2 Red Cell Distribution Width 13.3 13.5 Platelet Count 257 268 Mean Platelet Volume 8.9 9.8 Neutrophils % 78.4 H 75.5 Lymphocytes % 9.3 L 11.3 L Monocytes % 8.0 8.1 Eosinophils % 3.5 4.1 Basophils % 0.1 0.1 Nucleated Red Blood Cells % 0.0 0.0 Neutrophils # 9.5 H 8.8 H Lymphocytes # 1.1 1.3 Monocytes # 1.0 H 1.0 H Eosinophils # 0.4 0.5 Basophils # 0.0 0.0 Nucleated Red Blood Cells # 0.0 0.0 Sodium Level 143 149 H Potassium Level 2.4 *L 2.9 *L 2.8 *L Chloride Level 118 H 126 H Carbon Dioxide Level 20 L 21 Anion Gap 7 L 5 L Blood Urea Nitrogen 83 H 80 H Creatinine 3.62 H 3.55 H Glucose Level 103 102 Calcium Level 7.1 L 7.3 L Medications Medications Current Medications Acetaminophen (Tylenol Tab) 500 mg Q6H PRN PO PAIN AND OR ELEVATED TEMP; Start 07/09/16 at 20:30 Ondansetron HCl (Zofran Inj) 4 mg Q6H PRN IV NAUSEA AND/OR VOMITING; Start at 20:30 Zolpidem Tartrate (Ambien) 5 mg HS PRN PO INSOMNIA; Start 07/09/16 at 20:30 Aspirin (Aspirin) 81 mg DAILY PO Last administered on 07/16/16t 08:52; Admin Dose 81 MG; Start 07/10/16 at 09:00 Atorvastatin Calcium (Lipitor) 40 mg QHS PO Last administered on 07/15/16 20: 13; Admin Dose 40 MG; Start 07/09/16 at 21:00 Benztropine Mesylate (Cogentin) 1 mg BID PO Last administered on 07/16/16 08: 52; Admin Dose 1 MG; Start 07/09/16 at 21:00 Finasteride (Proscar) 5 mg DAILY PO Last administered on 07/16/16 08:56; Admin Dose 5 MG; Start 07/10/16 at 09:00 Acetaminophen/ Hydrocodone Bitart ([place] (5/325)) 1 tab Q4 PRN PO SEVERE PAIN LEVEL 7-10 Last administered on 07/15/16 16:21; Admin Dose 1 TAB; Start at 20:30 Latanoprost (Xalatan) 1 drop QHS BOTH EYES Last administered on 07/15/16 20:13 ; Admin Dose 1 DROP; Start 07/09/16 at 21:00 Multivitamins Therapeutic (Theragran) 1 tab DAILY PO Last administered on 08:52; Admin Dose 1 TAB; Start 07/10/16 at 09:00 Olanzapine (Zyprexa) 5 mg QHS PO Last administered on 07/15/16 20:13; Admin Dose 5 MG; Start 07/09/16 at 21:00 Zinc Sulfate 220 mg 220 mg DAILY PO Last administered on 07/16/16 08:56; Admin Dose 220 MG; Start 07/10/16 at 09:00 Cefepime HCl (Maxipime 1gm/50 ml (Pmx)) 50 ml @ 100 mls/hr Q24H IVPB Last administered on 07/16/16 09:02; Admin Dose 100 MLS/HR; Start 07/10/16 at 10:00 Acetaminophen (Tylenol Supp) 650 mg Q6H PRN [place] ELEVATED TEMPERATURE Last administered on 07/10/16 09:51; Admin Dose 650 MG; Start 07/10/16 at 09:30 Collagenase (Santyl) 1 applic DAILY TOP Last administered on 07/16/16 08:56; Admin Dose 1 APPLIC; Start 07/10/16 at 14:00 Bisacodyl 10 mg 10 mg BID PO Last administered on 07/16/16 08:52; Admin Dose 10 MG; Start 07/13/16 at 15:00 Dextrose (D5W) 1,000 ml @ 100 mls/hr Q10H IV Last administered on 07/16/16 00 :39; Admin Dose 100 MLS/HR; Start 07/13/16 at 16:30 Clonidine (Catapres) 0.2 mg TID PO Last administered on 07/16/16 08:56; Admin Dose 0.2 MG; Start 07/16/16 at 09:00 Benazepril HCl (Lotensin) 20 mg DAILY PO Last administered on 07/16/16 08:53; Admin Dose 20 MG; Start 07/16/16 at 09:00 Nifedipine 30 mg 30 mg BID PO Last administered on 07/16/16 08:53; Admin Dose 30 MG; Start 07/15/16 at 22:30 Potassium Chloride (KCl 40 MEQ/250 ML NS) 250 ml @ 62.5 mls/hr ONCE ONCE IVPB ; Start 07/16/16 at 09:30; Stop 07/16/16 at 13:29 JERO GALAN M.D. July 16, 2016 09:51
[2016-07-16] MEDS ORDERED: MIDAZOLAM 1 MG/ML 2 ML INJ ONE (13:07)
--- NOTE | 2016-07-16 13:55 | GILP ---
DATE OF PROCEDURE: PREOPERATIVE DIAGNOSIS: Abnormal CT scan, fecal impaction versus tumor at the rectosigmoid. The pa irineo had fecal impaction after preparation. The patient was also found to have Clostridium diffici le, he is on therapy. His potassium his was low but it was corrected by giving IV potassium. The p atient is quite stable now, so he was brought for colonoscopy. SURGEON: Rosa Vega MD DESCRIPTION OF PROCEDURE: After obtaining informed consent, the patient was placed in left lateral decubitus and monitored on oximetry, EKG, blood pressure, and 0.5 mg IV Versed was given. Rectal e xam showed perianal erythema and tenderness due to frequent BMs and liquid stool came out. Advanced the Olympus video pediatric colonoscope all the way to the splenic flexure and distal transverse co david. Examination of the left colon completely showed dilated colon with 1 area of the descending an d sigmoid colon junction, there was stercoral colitis ulcer. This is healing already. There is ano ther small ulcer at the rectosigmoid. These were photographed. Biopsies were not done as it seems to be healing. There is no tumor infiltration, so the scope was withdrawn back. Rectum was unremar kable. Postop, the patient had no complication. PLAN: Will be to proceed to feed the patient and discharge the patient back to halfway, and la ter have a barium enema in the future. Repeat colonoscopy in 6 months. Dictated By: ROSA COLON Conf#: [id number] DID#: [id number] CC: RONNIE PATEL MD;*EndCC*
--- NOTE | 2016-07-16 14:48 | CONS ---
Date/Time of Note Date/Time of Note DATE: 07/16/16 TIME: 14:48 Assessment/Plan Assessment/Plan Chief Complaint/Hosp Course 1. Acute kidney injury, Pre- Renal R/o ATN, [place] no signs of obstructive Uropathy, Hx of BPH.- Non Oliguric 2. Hypertension. Normotensive at this time. 3. Chronic obstructive pulmonary disease. 4. Benign prostatic hypertrophy. 5. Loculated pleural effusion. 6. Multiple decubiti 7. Cerebrovascular accident. 8. Dyslipidemia. 9. Dementia with behavioral disturbance. 10. Metabolic Acidosis-stable Likely ATN- Renal function improved and stable, Pt is non oliguric, Supplement K, Na stable, cont D5 1/2 NS No acute indication for HD at this time Problems: Consultation Date/Type/Reason Admit Date/Time July 09, 2016 at 12:24 Type of Consultation: Renal Referring Provider: RONNIE PATEL MD 24 HR Interval Summary Free Text/Dictation CDiff positive, however no significant diarrhea, NO new events patient has already made appro 400c UO Constitutional: No requiring O2 Exam/Review of Systems Vital Signs Vitals Vital Signs Date Time Temp Pulse Resp B/P Pulse Ox O2 Delivery O2 Flow Rate FiO2 07/16/16 13:55 98.7 55 16 158/71 96 07/16/16 13:28 Nasal Cannula 2.0 Intake and Output 07/15/16 07/15/16 07/16/16 15:00 23:00 07:00 Intake Total 1000 ml 1750 ml Output Total 800 ml 950 ml Balance 200 ml 800 ml Exam Constitutional: No distress ENMT: mucosa pink and moist Neck: No jvd Respiratory: No diminished breath sounds, No labored breathing Cardiovascular: No edema Gastrointestinal: non-tender, soft Neurological: lethargic Skin: No diaphoresis Results Result Diagram: 07/16/16 0638 07/16/16 1340 Results 24 hrs Laboratory Tests Test 07/15/16 16:55 07/16/16 06:38 07/16/16 13:40 Potassium Level 2.9 *L 2.8 *L 3.3 L White Blood Count 11.7 H Red Blood Count 3.00 L Hemoglobin 8.9 L Hematocrit 26.8 L Mean Corpuscular Volume 89.3 Mean Corpuscular Hemoglobin 29.7 Mean Corpuscular Hemoglobin Concent 33.2 Red Cell Distribution Width 13.5 Platelet Count 268 Mean Platelet Volume 9.8 Neutrophils % 75.5 Lymphocytes % 11.3 L Monocytes % 8.1 Eosinophils % 4.1 Basophils % 0.1 Nucleated Red Blood Cells % 0.0 Neutrophils # 8.8 H Lymphocytes # 1.3 Monocytes # 1.0 H Eosinophils # 0.5 Basophils # 0.0 Nucleated Red Blood Cells # 0.0 Sodium Level 149 H Chloride Level 126 H Carbon Dioxide Level 21 Anion Gap 5 L Blood Urea Nitrogen 80 H Creatinine 3.55 H Glucose Level 102 Calcium Level 7.3 L Medications Medications Current Medications Acetaminophen (Tylenol Tab) 500 mg Q6H PRN PO PAIN AND OR ELEVATED TEMP; Start 07/09/16 at 20:30 Ondansetron HCl (Zofran Inj) 4 mg Q6H PRN IV NAUSEA AND/OR VOMITING; Start at 20:30 Zolpidem Tartrate (Ambien) 5 mg HS PRN PO INSOMNIA; Start 07/09/16 at 20:30 Aspirin (Aspirin) 81 mg DAILY PO Last administered on 07/16/16 08:52; Admin Dose 81 MG; Start 07/10/16 at 09:00 Atorvastatin Calcium (Lipitor) 40 mg QHS PO Last administered on 07/15/16 20: 13; Admin Dose 40 MG; Start 07/09/16 at 21:00 Benztropine Mesylate (Cogentin) 1 mg BID PO Last administered on 07/16/16 08: 52; Admin Dose 1 MG; Start 07/09/16 at 21:00 Finasteride (Proscar) 5 mg DAILY PO Last administered on 07/16/16 08:56; Admin Dose 5 MG; Start 07/10/16 at 09:00 Acetaminophen/ Hydrocodone Bitart ([place] (5/325)) 1 tab Q4 PRN PO SEVERE PAIN LEVEL 7-10 Last administered on 07/15/16 16:21; Admin Dose 1 TAB; Start at 20:30 Latanoprost (Xalatan) 1 drop QHS BOTH EYES Last administered on 07/15/16 20:13 ; Admin Dose 1 DROP; Start 07/09/16 at 21:00 Multivitamins Therapeutic (Theragran) 1 tab DAILY PO Last administered on 08:52; Admin Dose 1 TAB; Start 07/10/16 at 09:00 Olanzapine (Zyprexa) 5 mg QHS PO Last administered on 07/15/16 20:13; Admin Dose 5 MG; Start 07/09/16 at 21:00 Zinc Sulfate 220 mg 220 mg DAILY PO Last administered on 07/16/16 08:56; Admin Dose 220 MG; Start 07/10/16 at 09:00 Cefepime HCl (Maxipime 1gm/50 ml (Pmx)) 50 ml @ 100 mls/hr Q24H IVPB Last administered on 07/16/16 09:02; Admin Dose 100 MLS/HR; Start 07/10/16 at 10:00 Acetaminophen (Tylenol Supp) 650 mg Q6H PRN [place] ELEVATED TEMPERATURE Last administered on 07/10/16 09:51; Admin Dose 650 MG; Start 07/10/16 at 09:30 Collagenase (Santyl) 1 applic DAILY TOP Last administered on 07/16/16 08:56; Admin Dose 1 APPLIC; Start 07/10/16 at 14:00 Bisacodyl 10 mg 10 mg BID PO Last administered on 07/16/16 08:52; Admin Dose 10 MG; Start 07/13/16 at 15:00 Dextrose (D5W) 1,000 ml @ 100 mls/hr Q10H IV Last administered on 07/16/16 14 :46; Admin Dose 100 MLS/HR; Start 07/13/16 at 16:30 Clonidine (Catapres) 0.2 mg TID PO Last administered on 07/16/16 08:56; Admin Dose 0.2 MG; Start 07/16/16 at 09:00 Benazepril HCl (Lotensin) 20 mg DAILY PO Last administered on 07/16/16 08:53; Admin Dose 20 MG; Start 07/16/16 at 09:00 Nifedipine (Procardia Xl) 30 mg BID PO Last administered on 07/16/16 08:53; Admin Dose 30 MG; Start 07/15/16 at 22:30 TACOS GREEN MD July 16, 2016 14:48
--- NOTE | 2016-07-16 18:01 | PN ---
Date/Time of Note Date/Time of Note DATE: 07/16/16 TIME: 17:58 Assessment/Plan VTE Prophylaxis VTE Prophylaxis Intervention: SCD's Lines/Catheters IV Catheter Type (from [facility]): Peripheral IV Urinary Cath still in place: Yes Reason Cath still needed: urinary retention Assessment/Plan Chief Complaint/Hosp Course Patient was persistent hypocalcemia, patient had GoLYTELY in preparation for colonoscopy, will place patient on potassium protocol, is resting comfortably after procedure. Assessment/Plan - C. difficile colitis. Dr. Henderson is following infection disease consultation. Continue antibiotics per ID. - Status post colonoscopy - Acute kidney injury, etiology unknown. Dr. Srinivasan is following in nephrology consultation. - Acute metabolic encephalopathy, resolving. - Hypertension. - Chronic obstructive pulmonary disease. - Benign prostatic hypertrophy. Continue Flomax. - Loculated pleural effusion. Continue to monitor chest x-ray. - Multiple decubitus ulcers. Continue current wound care - Acute cerebrovascular accident. Continue aspirin. - Dyslipidemia. Continue Lipitor. - Dementia with behavioral disturbance. Continue Zyprexa. Further recommendations based on clinical course. Plan of care discussed with Dr. Rene. Problems: Exam/Review of Systems Vital Signs Vitals Vital Signs Date Time Temp Pulse Resp B/P Pulse Ox O2 Delivery O2 Flow Rate FiO2 07/16/16 16:44 49 07/16/16 15:20 98.4 16 161/82 95 07/16/16 13:28 Nasal Cannula 2.0 Intake and Output 07/15/16 07/15/16 07/16/16 15:00 23:00 07:00 Intake Total 1000 ml 1750 ml Output Total 800 ml 950 ml Balance 200 ml 800 ml Exam Constitutional: alert, frail Psych: confusion Neck: supple Respiratory: clear to auscultation Cardiovascular: nl pulses, regular rate and rhythm Gastrointestinal: non-tender, soft Genitourinary - Male: other Skin: other (BLE wounds) Results Result Diagram: 07/16/16 0638 07/16/16 1340 Results 24 hrs Laboratory Tests Test 07/16/16 06:38 07/16/16 13:40 White Blood Count 11.7 H Red Blood Count 3.00 L Hemoglobin 8.9 L Hematocrit 26.8 L Mean Corpuscular Volume 89.3 Mean Corpuscular Hemoglobin 29.7 Mean Corpuscular Hemoglobin Concent 33.2 Red Cell Distribution Width 13.5 Platelet Count 268 Mean Platelet Volume 9.8 Neutrophils % 75.5 Lymphocytes % 11.3 L Monocytes % 8.1 Eosinophils % 4.1 Basophils % 0.1 Nucleated Red Blood Cells % 0.0 Neutrophils # 8.8 H Lymphocytes # 1.3 Monocytes # 1.0 H Eosinophils # 0.5 Basophils # 0.0 Nucleated Red Blood Cells # 0.0 Sodium Level 149 H Potassium Level 2.8 *L 3.3 L Chloride Level 126 H Carbon Dioxide Level 21 Anion Gap 5 L Blood Urea Nitrogen 80 H Creatinine 3.55 H Glucose Level 102 Calcium Level 7.3 L Medications Medications Current Medications Acetaminophen (Tylenol Tab) 500 mg Q6H PRN PO PAIN AND OR ELEVATED TEMP; Start 07/09/16 at 20:30 Ondansetron HCl (Zofran Inj) 4 mg Q6H PRN IV NAUSEA AND/OR VOMITING; Start at 20:30 Zolpidem Tartrate (Ambien) 5 mg HS PRN PO INSOMNIA; Start 07/09/16 at 20:30 Aspirin (Aspirin) 81 mg DAILY PO Last administered on 07/16/16 08:52; Admin Dose 81 MG; Start 07/10/16 at 09:00 Atorvastatin Calcium (Lipitor) 40 mg QHS PO Last administered on 07/15/16 20: 13; Admin Dose 40 MG; Start 07/09/16 at 21:00 Benztropine Mesylate (Cogentin) 1 mg BID PO Last administered on 07/16/16 08: 52; Admin Dose 1 MG; Start 07/09/16 at 21:00 Finasteride (Proscar) 5 mg DAILY PO Last administered on 07/16/16 08:56; Admin Dose 5 MG; Start 07/10/16 at 09:00 Acetaminophen/ Hydrocodone Bitart ([place] (5/325)) 1 tab Q4 PRN PO SEVERE PAIN LEVEL 7-10 Last administered on 07/15/16 16:21; Admin Dose 1 TAB; Start at 20:30 Latanoprost (Xalatan) 1 drop QHS BOTH EYES Last administered on 07/15/16 20:13 ; Admin Dose 1 DROP; Start 07/09/16 at 21:00 Multivitamins Therapeutic (Theragran) 1 tab DAILY PO Last administered on 08:52; Admin Dose 1 TAB; Start 07/10/16 at 09:00 Olanzapine (Zyprexa) 5 mg QHS PO Last administered on 07/15/16 20:13; Admin Dose 5 MG; Start 07/09/16 at 21:00 Zinc Sulfate 220 mg 220 mg DAILY PO Last administered on 07/16/16 08:56; Admin Dose 220 MG; Start 07/10/16 at 09:00 Cefepime HCl (Maxipime 1gm/50 ml (Pmx)) 50 ml @ 100 mls/hr Q24H IVPB Last administered on 07/16/16 09:02; Admin Dose 100 MLS/HR; Start 07/10/16 at 10:00 Acetaminophen (Tylenol Supp) 650 mg Q6H PRN [place] ELEVATED TEMPERATURE Last administered on 07/10/16 09:51; Admin Dose 650 MG; Start 07/10/16 at 09:30 Collagenase (Santyl) 1 applic DAILY TOP Last administered on 07/16/16 08:56; Admin Dose 1 APPLIC; Start 07/10/16 at 14:00 Bisacodyl 10 mg 10 mg BID PO Last administered on 07/16/16 08:52; Admin Dose 10 MG; Start 07/13/16 at 15:00 Dextrose (D5W) 1,000 ml @ 100 mls/hr Q10H IV Last administered on 07/16/16 14 :46; Admin Dose 100 MLS/HR; Start 07/13/16 at 16:30 Clonidine (Catapres) 0.2 mg TID PO Last administered on 07/16/16 08:56; Admin Dose 0.2 MG; Start 07/16/16 at 09:00 Benazepril HCl (Lotensin) 20 mg DAILY PO Last administered on 07/16/16 08:53; Admin Dose 20 MG; Start 07/16/16 at 09:00 Nifedipine (Procardia Xl) 30 mg BID PO Last administered on 07/16/16 08:53; Admin Dose 30 MG; Start 07/15/16 at 22:30 ALE MCCONNELL July 16, 2016 18:01
[2016-07-16] MEDS: LATANOPROST 0.005% 2.5 ML OPH BOTH EYES SCH (21:15)
[2016-07-16] MEDS: ATORVASTATIN 40 MG TAB PO SCH (21:16)
[2016-07-16] MEDS: OLANZAPINE 5 MG TAB PO SCH (21:16)
[2016-07-16] MEDS: LORAZEPAM 2 MG INJ IV PRN (23:39)
[2016-07-16] MEDS: POTASSIUM CHLORIDE 50 ML IVPB PRN (23:42)
[2016-07-17] VITALS (11 sets, daily range): BP systolic 107–127; BP diastolic 53–70; PULSE 55–73; RESP 15–18
[2016-07-17] MEDS: POTASSIUM CHLORIDE 50 ML IVPB PRN ×5 (00:59→16:55)
[2016-07-17] MEDS: DEXTROSE 5% 1,000 ML IV SCH ×3 (03:34→20:30)
[2016-07-17 06:53] LABS: ADD SCAN DIFF NO
--- NOTE | 2016-07-17 06:55 | PN ---
DATE: 07/16/2016 This patient came into the hospital septic with a bowel obstruction, suspected rectosigmoid colon obstruction, fecal impaction, and it took several days to clean him out, and while he is in the hospital, he was also noted to have C. diff. The therapy has been started. I believe he did not receive the vancomycin, and as the patient improved and his stool was becoming more yellowish, watery, it was decided to take him for colonoscopy to rule out any colonic CA. Also we had suspected stercoral colitis. Due to his hypokalemia which has been corrected by giving IV fluids, IV potassium chloride and his renal function has improved, but the anesthesiologist declined to sedate this patient. So I proceeded to do the colonoscopy after obtaining informed consent. Postoperative diagnosis is dilated left colon with stercoral colitis ulcer at rectosigmoid and also at the descending sigmoid colon junction, very tortuous left colon. No evidence of any infiltrating CA or obstructing lesion at the rectosigmoid at present. The patient was put in left lateral decubitus after obtaining informed consent. He was monitored on oximetry, EKG, blood pressure. He was given only 0.5 mg of Versed, and he was kept comfortable. Rectal exam done which was incompetent anal sphincter tone. I advanced a pediatric Olympus videocolonoscope to transverse colon, and it demonstrated only stercoral colitis, and he was sent to floor. The stercoral colitis ulcers are only 2 places, at the sigmoid and descending colon and rectosigmoid area. At present, there is no evidence of any infiltrating or obstructing lesion in the left colon. My recommendation is to keep him on MiraLax and bowel maintenance with Dulcolax and hydrating him. It is okay to progress the diet and discharge him back to half-way. Continue to monitor his C. diff toxin level also and continue with therapies as he has started. I will follow the potassium level. Okay to give oral potassium also and magnesium if necessary as his renal function has improved markedly since his initial admission. The patient probably will require fluroscopy with BE total colonoscopy to complete the right side of the colon. This will be followed by Dr. Navdeep Fleming if possible. Thank you once again for having confidence in us to manage this patient. Dictated By: MALIKA COLON Conf#: [id number] DID#: [id number] CC: DARWIN FLEMING MD; RONNIE PATEL MD;*EndCC* MTDD
[2016-07-17 07:03] LABS: BASOPHILS % 0.1 % (0.0-2.0); EOSINOPHILS # 0.5 10^3/ul (0.0-0.5); EOSINOPHILS % 3.4 % (0.0-7.0); HEMATOCRIT 28.3 % (42.0-52.0); HEMOGLOBIN 9.3 g/dl (14.0-18.0); LYMPHOCYTES # 1.4 10^3/ul (0.8-2.9); LYMPHOCYTES % 8.5 % (15.0-51.0); MEAN CORPUSCULAR HEMOGLOBIN 29.5 pg (29.0-33.0); MEAN CORPUSCULAR HGB CONC 32.9 g/dl (32.0-37.0); MEAN CORPUSCULAR VOLUME 89.8 fl (82.0-101.0); MEAN PLATELET VOLUME 9.6 fl (7.4-10.4); MONOCYTES % 6.4 % (0.0-11.0); NEUTROPHIL # 12.8 10^3/ul (1.6-7.5); NEUTROPHILS % 80.6 % (39.0-77.0); PLATELET COUNT 289 10^3/UL (140-415); RED BLOOD COUNT 3.15 10^6/ul (4.70-6.10); RED CELL DISTRIBUTION WIDTH 13.4 % (11.5-14.5); WHITE BLOOD COUNT 15.9 10^3/ul (4.8-10.8)
[2016-07-17 07:25] LABS: CALCIUM 7.3 mg/dl (8.4-10.2); CREATININE 3.26 mg/dl (0.61-1.24); POTASSIUM 3.3 mmol/L (3.5-5.1)
[2016-07-17] MEDS: FINASTERIDE 5 MG TAB PO SCH (08:56)
[2016-07-17] MEDS: BISACODYL (EC) 5 MG TAB PO SCH ×2 (08:56→20:44)
[2016-07-17] MEDS: MULTIVITAMINS THERAPEUTIC TAB PO SCH (08:56)
[2016-07-17] MEDS: ZINC SULFATE 220 MG CAP PO SCH (08:56)
[2016-07-17] MEDS: NIFEdipine (XL) 30 MG TAB PO SCH ×2 (08:57→20:44)
[2016-07-17] MEDS: BENAZEPRIL 20 MG TAB PO SCH (08:57)
[2016-07-17] MEDS: BENZTROPINE 1 MG TAB PO SCH ×2 (08:57→20:44)
[2016-07-17] MEDS: PANTOPRAZOLE (EC) 40 MG TAB PO SCH (08:57)
[2016-07-17] MEDS: ASPIRIN 81 MG TAB PO SCH (08:57)
[2016-07-17] MEDS: COLLAGENASE 30 GM TUBE TOP SCH (08:58)
[2016-07-17] MEDS: CEFEPIME 1GM/50 ML (PMX) 50 ML IVPB SCH (09:06)
--- NOTE | 2016-07-17 15:54 | PN ---
Date/Time of Note Date/Time of Note DATE: 07/17/16 TIME: 15:46 Assessment/Plan VTE Prophylaxis VTE Prophylaxis Intervention: other Lines/Catheters IV Catheter Type (from [facility]): Peripheral IV Urinary Cath still in place: Yes Reason Cath still needed: urinary retention Assessment/Plan Assessment/Plan - Hypokalemia- on K protocol, am lab - Hypernatremia - per nephrology - possible aspiration- COUGH - CXR - swallow eval - npo - IVF - C. difficile colitis. Dr. Henderson is following infection disease consultation. Continue antibiotics per ID. - Status post colonoscopy - Acute kidney injury, etiology unknown. Dr. Srinivasan is following in nephrology consultation. - Acute metabolic encephalopathy, resolving. - Hypertension. - Chronic obstructive pulmonary disease. - Benign prostatic hypertrophy. Continue Flomax. - Loculated pleural effusion. Continue to monitor chest x-ray. - Multiple decubitus ulcers. Continue current wound care - Acute cerebrovascular accident. Continue aspirin. - Dyslipidemia. Continue Lipitor. - Dementia with behavioral disturbance. Continue Zyprexa. Further recommendations based on clinical course. Plan of care discussed with Dr. Rene. Subjective 24 Hr Interval Summary Free Text/Dictation resting, seems comfortable, afebrile, dw staff, bilateral heel wounds- DDI. Constitutional: requiring IVF, requiring O2 Respiratory: no complaints Cardiovascular: no complaints Gastrointestinal: no complaints Exam/Review of Systems Vital Signs Vitals Vital Signs Date Time Temp Pulse Resp B/P Pulse Ox O2 Delivery O2 Flow Rate FiO2 07/17/16 12:00 64 07/17/16 11:52 97.6 18 121/67 98 07/17/16 08:20 Nasal Cannula 2.0 Intake and Output 07/16/16 07/16/16 07/17/16 15:00 23:00 07:00 Intake Total 1300 ml 100 ml 1290 ml Output Total 900 ml 600 ml Balance 1300 ml -800 ml 690 ml Exam Constitutional: alert, well developed Respiratory: clear to auscultation, normal air movement Cardiovascular: nl pulses, regular rate and rhythm Gastrointestinal: non-tender, soft Musculoskeletal: muscle weakness Extremities: normal pulses Neurological: nl speech Results Result Diagram: 07/17/16 0620 07/17/16 0620 Results 24 hrs Laboratory Tests Test 07/16/16 19:45 07/17/16 06:20 Potassium Level 3.1 L 3.3 L White Blood Count 15.9 #H Red Blood Count 3.15 L Hemoglobin 9.3 L Hematocrit 28.3 L Mean Corpuscular Volume 89.8 Mean Corpuscular Hemoglobin 29.5 Mean Corpuscular Hemoglobin Concent 32.9 Red Cell Distribution Width 13.4 Platelet Count 289 Mean Platelet Volume 9.6 Neutrophils % 80.6 H Lymphocytes % 8.5 L Monocytes % 6.4 Eosinophils % 3.4 Basophils % 0.1 Nucleated Red Blood Cells % 0.0 Neutrophils # 12.8 H Lymphocytes # 1.4 Monocytes # 1.0 H Eosinophils # 0.5 Basophils # 0.0 Nucleated Red Blood Cells # 0.0 Sodium Level 146 H Chloride Level 126 H Carbon Dioxide Level 19 L Anion Gap 4 L Blood Urea Nitrogen 72 H Creatinine 3.26 H Glucose Level 109 Calcium Level 7.3 L Medications Medications Current Medications Acetaminophen (Tylenol Tab) 500 mg Q6H PRN PO PAIN AND OR ELEVATED TEMP; Start 07/09/16 at 20:30 Ondansetron HCl (Zofran Inj) 4 mg Q6H PRN IV NAUSEA AND/OR VOMITING; Start at 20:30 Zolpidem Tartrate (Ambien) 5 mg HS PRN PO INSOMNIA; Start 07/09/16 at 20:30 Aspirin (Aspirin) 81 mg DAILY PO Last administered on 07/17/16 08:57; Admin Dose 81 MG; Start 07/10/16 at 09:00 Atorvastatin Calcium (Lipitor) 40 mg QHS PO Last administered on 07/16/16 21: 16; Admin Dose 40 MG; Start 07/09/16 at 21:00 Benztropine Mesylate (Cogentin) 1 mg BID PO Last administered on 07/17/16 08:57 ; Admin Dose 1 MG; Start 07/09/16 at 21:00 Finasteride (Proscar) 5 mg DAILY PO Last administered on 07/17/16 08:56; Admin Dose 5 MG; Start 07/10/16 at 09:00 Acetaminophen/ Hydrocodone Bitart ([place] (5/325)) 1 tab Q4 PRN PO SEVERE PAIN LEVEL 7-10 Last administered on 07/15/16 16:21; Admin Dose 1 TAB; Start at 20:30 Latanoprost (Xalatan) 1 drop QHS BOTH EYES Last administered on 07/16/16 21:15 ; Admin Dose 1 DROP; Start 07/09/16 at 21:00 Multivitamins Therapeutic (Theragran) 1 tab DAILY PO Last administered on 08:56; Admin Dose 1 TAB; Start 07/10/16 at 09:00 Olanzapine (Zyprexa) 5 mg QHS PO Last administered on 07/16/16 21:16; Admin Dose 5 MG; Start 07/09/16 at 21:00 Zinc Sulfate 220 mg 220 mg DAILY PO Last administered on 07/17/16 08:56; Admin Dose 220 MG; Start 07/10/16 at 09:00 Cefepime HCl (Maxipime 1gm/50 ml (Pmx)) 50 ml @ 100 mls/hr Q24H IVPB Last administered on 07/17/16 09:06; Admin Dose 100 MLS/HR; Start 07/10/16 at 10:00 Acetaminophen (Tylenol Supp) 650 mg Q6H PRN [place] ELEVATED TEMPERATURE Last administered on 07/10/16 09:51; Admin Dose 650 MG; Start 07/10/16 at 09:30 Collagenase (Santyl) 1 applic DAILY TOP Last administered on 07/17/16 08:58; Admin Dose 1 APPLIC; Start 07/10/16 at 14:00 Bisacodyl 10 mg 10 mg BID PO Last administered on 07/17/16 08:56; Admin Dose 10 MG; Start 07/13/16 at 15:00 Dextrose (D5W) 1,000 ml @ 100 mls/hr Q10H IV Last administered on 07/17/16 11: 09; Admin Dose 100 MLS/HR; Start 07/13/16 at 16:30 Clonidine (Catapres) 0.2 mg TID PO Last administered on 07/17/16 08:57; Admin Dose 0.2 MG; Start 07/16/16 at 09:00 Benazepril HCl (Lotensin) 20 mg DAILY PO Last administered on 07/17/16 08:57; Admin Dose 20 MG; Start 07/16/16 at 09:00 Nifedipine (Procardia Xl) 30 mg BID PO Last administered on 07/17/16 08:57; Admin Dose 30 MG; Start 07/15/16 at 22:30 Lorazepam (Ativan) 0.5 mg Q6H PRN IV ANXIETY Last administered on 07/16/16t 23: 39; Admin Dose 0.5 MG; Start 07/16/16 at 23:30 ISAEL CRYSTAL Jul 17, 2016 15:54
--- NOTE | 2016-07-17 16:27 | RADRPT ---
PROCEDURE: XR Chest. CLINICAL INDICATION: Cough TECHNIQUE: Single portable view of the chest was obtained COMPARISON: Yesterday FINDINGS: The study is limited due to patient positioning. The upper lungs are partially obscured by patient' s chin. There is worsening right lower lobe infiltrate and right pleural effusion. There is worsen ing small to moderate left pleural effusion. There is mild cardiomegaly.. The heart, lungs and medi astinum are otherwise unchanged. . RPTAT: AA IMPRESSION: Limited study. Worsening right lower lobe infiltrate and right pleural effusion. Worsening small to moderate left pleural effusion. No other significant change. .Gerard De Jesus MD, MD Date Time Electronically viewed and signed by .Gerard De Jesus MD, MD on 07/17/2016 16:27 .S/
[2016-07-17] MEDS ORDERED: ZOLPIDEM 5 MG TAB PO PRN (19:00)
[2016-07-17 19:15] LABS: IRON 50 ug/dl (35-150)
[2016-07-17 19:24] LABS: TOTAL IRON BINDING CAPACITY 156 ug/dl (241-421)
[2016-07-17] MEDS: LATANOPROST 0.005% 2.5 ML OPH BOTH EYES SCH (20:44)
[2016-07-17] MEDS: OLANZAPINE 5 MG TAB PO SCH (20:45)
[2016-07-17] MEDS: ATORVASTATIN 40 MG TAB PO SCH (20:45)
[2016-07-17] MEDS: EPOETIN 3000 UNITS/1 ML INJ (ESRD) SC SCH (20:48)
--- NOTE | 2016-07-17 21:01 | CONS ---
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; R/o colon CA - HTN - COPD - loculated pleural effusion - HLD - H/o recent CVA - H/o recent UTI - dementia with behavioral disturbance - acute encephalopathy - improving - multiple decubiti recommendations: - pending results: wound culture of b/l heel - continue empiric, renally dosed cefepime (07/10/2016-); will adjust it depending on the results of his wound cultures - continue PO vancomycin (02/14/2017-) while Pt's on broad spectrum antibiotics Problems: Consultation Date/Type/Reason Admit Date/Time July 09, 2016 at 12:24 Initial Consult Date 07/11/16 Type of Consultation: ID Referring Provider: RONNIE PATEL MD 24 HR Interval Summary Subjective hx not possible: other (Pt's demented and confused) Detailed Summary Gastrointestinal: no complaints Genitourinary: no complaints Musculoskeletal: No bone/joint pain Exam/Review of Systems Vital Signs Vitals Vital Signs Date Time Temp Pulse Resp B/P Pulse Ox O2 Delivery O2 Flow Rate FiO2 07/17/16 20:00 98.5 77 15 124/70 94 07/17/16 18:36 2.0 07/17/16 08:20 Nasal Cannula Intake and Output 07/16/16 07/16/16 07/17/16 15:00 23:00 07:00 Intake Total 1300 ml 100 ml 1290 ml Output Total 900 ml 600 ml Balance 1300 ml -800 ml 690 ml Exam Constitutional: frail Psych: confusion Head: atraumatic, normocephalic Eyes: nl conjunctiva, nl lids ENMT: nl external ears & nose, nl nasal mucosa & septum Respiratory: clear to auscultation, normal air movement Cardiovascular: nl pulses, regular rate and rhythm Gastrointestinal: non-tender, soft Musculoskeletal: nl extremities to inspection Extremities: No edema, No pitting pedal edema Neurological: confused Skin: rash or lesions (decubitus ulcers of b/l heel) Results Result Diagram: 07/17/16 0620 07/17/16 0620 Results 24 hrs Laboratory Tests Test 07/17/16 06:20 White Blood Count 15.9 #H Red Blood Count 3.15 L Hemoglobin 9.3 L Hematocrit 28.3 L Mean Corpuscular Volume 89.8 Mean Corpuscular Hemoglobin 29.5 Mean Corpuscular Hemoglobin Concent 32.9 Red Cell Distribution Width 13.4 Platelet Count 289 Mean Platelet Volume 9.6 Neutrophils % 80.6 H Lymphocytes % 8.5 L Monocytes % 6.4 Eosinophils % 3.4 Basophils % 0.1 Nucleated Red Blood Cells % 0.0 Neutrophils # 12.8 H Lymphocytes # 1.4 Monocytes # 1.0 H Eosinophils # 0.5 Basophils # 0.0 Nucleated Red Blood Cells # 0.0 Sodium Level 146 H Potassium Level 3.3 L Chloride Level 126 H Carbon Dioxide Level 19 L Anion Gap 4 L Blood Urea Nitrogen 72 H Creatinine 3.26 H Glucose Level 109 Calcium Level 7.3 L Iron Level 50 Total Iron Binding Capacity 156 L Percent Iron Saturation 32 Medications Medications Current Medications Acetaminophen (Tylenol Tab) 500 mg Q6H PRN PO PAIN AND OR ELEVATED TEMP; Start 07/09/16 at 20:30 Ondansetron HCl (Zofran Inj) 4 mg Q6H PRN IV NAUSEA AND/OR VOMITING; Start at 20:30 Aspirin (Aspirin) 81 mg DAILY PO Last administered on 07/17/16 08:57; Admin Dose 81 MG; Start 07/10/16 at 09:00 Atorvastatin Calcium (Lipitor) 40 mg QHS PO Last administered on 07/16/16 21: 16; Admin Dose 40 MG; Start 07/09/16 at 21:00 Benztropine Mesylate (Cogentin) 1 mg BID PO Last administered on 07/17/16 08:57 ; Admin Dose 1 MG; Start 07/09/16 at 21:00 Finasteride (Proscar) 5 mg DAILY PO Last administered on 07/17/16 08:56; Admin Dose 5 MG; Start 07/10/16 at 09:00 Acetaminophen/ Hydrocodone Bitart ([place] (5/325)) 1 tab Q4 PRN PO SEVERE PAIN LEVEL 7-10 Last administered on 07/15/16 16:21; Admin Dose 1 TAB; Start at 20:30 Latanoprost (Xalatan) 1 drop QHS BOTH EYES Last administered on 07/16/16 21:15 ; Admin Dose 1 DROP; Start 07/09/16 at 21:00 Multivitamins Therapeutic (Theragran) 1 tab DAILY PO Last administered on 08:56; Admin Dose 1 TAB; Start 07/10/16 at 09:00 Olanzapine (Zyprexa) 5 mg QHS PO Last administered on 07/16/16 21:16; Admin Dose 5 MG; Start 07/09/16 at 21:00 Zinc Sulfate 220 mg 220 mg DAILY PO Last administered on 07/17/16 08:56; Admin Dose 220 MG; Start 07/10/16 at 09:00 Cefepime HCl (Maxipime 1gm/50 ml (Pmx)) 50 ml @ 100 mls/hr Q24H IVPB Last administered on 07/17/16 09:06; Admin Dose 100 MLS/HR; Start 07/10/16 at 10:00 Acetaminophen (Tylenol Supp) 650 mg Q6H PRN [place] ELEVATED TEMPERATURE Last administered on 07/10/16 09:51; Admin Dose 650 MG; Start 07/10/16 at 09:30 Collagenase (Santyl) 1 applic DAILY TOP Last administered on 07/17/16 08:58; Admin Dose 1 APPLIC; Start 07/10/16 at 14:00 Bisacodyl 10 mg 10 mg BID PO Last administered on 07/17/16 08:56; Admin Dose 10 MG; Start 07/13/16 at 15:00 Dextrose (D5W) 1,000 ml @ 100 mls/hr Q10H IV Last administered on 07/17/16 11: 09; Admin Dose 100 MLS/HR; Start 07/13/16 at 16:30 Clonidine (Catapres) 0.2 mg TID PO Last administered on 07/17/16 08:57; Admin Dose 0.2 MG; Start 07/16/16 at 09:00 Benazepril HCl (Lotensin) 20 mg DAILY PO Last administered on 07/17/16 08:57; Admin Dose 20 MG; Start 07/16/16 at 09:00 Nifedipine (Procardia Xl) 30 mg BID PO Last administered on 07/17/16 08:57; Admin Dose 30 MG; Start 07/15/16 at 22:30 Lorazepam (Ativan) 0.5 mg Q6H PRN IV ANXIETY Last administered on 07/16/16 23: 39; Admin Dose 0.5 MG; Start 07/16/16 at 23:30 Zolpidem Tartrate (Ambien) 2.5 mg HS PRN PO INSOMNIA; Start 07/17/16 at 19:00 Epoetin Zana (Epogen (Esrd)) 6,000 units TuThSa@17 SC ; Start 07/17/16 at 20:00 JERO GALAN M.D. Jul 17, 2016 21:01
[2016-07-18 01:51] VITALS: BP 106/56; RESP 18
[2016-07-18] MEDS: DEXTROSE 5% 1,000 ML IV SCH (04:41)
[2016-07-18 06:02] LABS: ADD SCAN DIFF NO
[2016-07-18 06:09] LABS: BASOPHILS % 0.1 % (0.0-2.0); EOSINOPHILS # 0.4 10^3/ul (0.0-0.5); HEMATOCRIT 26.7 % (42.0-52.0); HEMOGLOBIN 8.7 g/dl (14.0-18.0); LYMPHOCYTES # 1.6 10^3/ul (0.8-2.9); LYMPHOCYTES % 11.2 % (15.0-51.0); MEAN CORPUSCULAR HEMOGLOBIN 29.7 pg (29.0-33.0); MEAN CORPUSCULAR HGB CONC 32.6 g/dl (32.0-37.0); MEAN CORPUSCULAR VOLUME 91.1 fl (82.0-101.0); MEAN PLATELET VOLUME 9.4 fl (7.4-10.4); MONOCYTE # 1.1 10^3/ul (0.3-0.9); NEUTROPHIL # 10.7 10^3/ul (1.6-7.5); NEUTROPHILS % 76.7 % (39.0-77.0); PLATELET COUNT 280 10^3/UL (140-415); RED BLOOD COUNT 2.93 10^6/ul (4.70-6.10); RED CELL DISTRIBUTION WIDTH 13.2 % (11.5-14.5)
[2016-07-18 06:52] LABS: CALCIUM 7.3 mg/dl (8.4-10.2); CREATININE 3.14 mg/dl (0.61-1.24)
[2016-07-18] MEDS ORDERED: PENDING SANTYL ORDER FOR WOUND CARE XX PRN (07:00)
[2016-07-18 08:03] VITALS: BP 108/55; RESP 16
[2016-07-18] MEDS: COLLAGENASE 30 GM TUBE TOP SCH (09:00)
[2016-07-18] MEDS: LORAZEPAM 2 MG INJ IV PRN (09:58)
[2016-07-18 10:00] VITALS: BP 112/66; PULSE 64
[2016-07-18] MEDS: BENZTROPINE 1 MG TAB PO SCH ×2 (10:01→22:25)
[2016-07-18] MEDS: PANTOPRAZOLE (EC) 40 MG TAB PO SCH (10:02)
[2016-07-18] MEDS: ASPIRIN 81 MG TAB PO SCH (10:02)
[2016-07-18] MEDS: MULTIVITAMINS THERAPEUTIC TAB PO SCH (10:03)
[2016-07-18] MEDS: BISACODYL (EC) 5 MG TAB PO SCH ×2 (10:03→21:00)
[2016-07-18] MEDS: ZINC SULFATE 220 MG CAP PO SCH (10:04)
[2016-07-18] MEDS: NIFEdipine (XL) 30 MG TAB PO SCH ×2 (10:04→22:26)
[2016-07-18] MEDS: BENAZEPRIL 20 MG TAB PO SCH (10:05)
[2016-07-18] MEDS: CEFEPIME 1GM/50 ML (PMX) 50 ML IVPB SCH (10:05)
[2016-07-18] MEDS: FINASTERIDE 5 MG TAB PO SCH (10:05)
--- NOTE | 2016-07-18 10:42 | CONS ---
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 aureus - add IV linezolid for S. aureus. Given by IV because Pt's often confused and PO intake can be affected. Avoiding vancomycin due to SRAVANTHI. Will monitor CBC while Pt's on linezolid - continue empiric, renally dosed cefepime (07/10/2016-); if no MDR gram negative bacteria in wound cultures, will d/c it - continue PO vancomycin (02/14/2017-) while Pt's on antibiotics Problems: Consultation Date/Type/Reason Admit Date/Time July 09, 2016 at 12:24 Initial Consult Date 07/11/16 Type of Consultation: ID Referring Provider: RONNIE PATEL MD 24 HR Interval Summary Subjective hx not possible: pt non-verbal Exam/Review of Systems Vital Signs Vitals Vital Signs Date Time Temp Pulse Resp B/P Pulse Ox O2 Delivery O2 Flow Rate FiO2 07/18/16 10:00 64 112/66 07/18/16 08:03 98.1 16 95 07/18/16 02:30 Nasal Cannula 2.0 Intake and Output 07/17/16 07/17/16 07/18/16 15:00 23:00 07:00 Intake Total 100 ml 1150 ml 950 ml Output Total 1000 ml 300 ml Balance 100 ml 150 ml 650 ml Exam Constitutional: frail Psych: confusion Head: atraumatic, normocephalic Eyes: nl conjunctiva, nl lids ENMT: nl external ears & nose, nl nasal mucosa & septum Respiratory: diminished breath sounds Cardiovascular: nl pulses, regular rate and rhythm Gastrointestinal: non-tender, soft Musculoskeletal: nl extremities to inspection Extremities: No edema, No pitting pedal edema Neurological: confused Skin: rash or lesions (b/l heel ulcers, dressed, covered with a protective boot ) Results Result Diagram: 07/18/16 0520 07/18/16 0520 Results 24 hrs Laboratory Tests Test 07/18/16 05:00 07/18/16 05:20 Absolute Reticulocyte Count 0.029 Percent Reticulocyte Count 1.0 White Blood Count 14.0 H Red Blood Count 2.93 L Hemoglobin 8.7 L Hematocrit 26.7 L Mean Corpuscular Volume 91.1 Mean Corpuscular Hemoglobin 29.7 Mean Corpuscular Hemoglobin Concent 32.6 Red Cell Distribution Width 13.2 Platelet Count 280 Mean Platelet Volume 9.4 Neutrophils % 76.7 Lymphocytes % 11.2 L Monocytes % 8.0 Eosinophils % 3.0 Basophils % 0.1 Nucleated Red Blood Cells % 0.0 Neutrophils # 10.7 H Lymphocytes # 1.6 Monocytes # 1.1 H Eosinophils # 0.4 Basophils # 0.0 Nucleated Red Blood Cells # 0.0 Sodium Level 143 Potassium Level 3.0 L Chloride Level 116 H Carbon Dioxide Level 19 L Anion Gap 11 # Blood Urea Nitrogen 67 H Creatinine 3.14 H Glucose Level 124 Calcium Level 7.3 L Medications Medications Current Medications Acetaminophen (Tylenol Tab) 500 mg Q6H PRN PO PAIN AND OR ELEVATED TEMP; Start 07/09/16 at 20:30 Ondansetron HCl (Zofran Inj) 4 mg Q6H PRN IV NAUSEA AND/OR VOMITING; Start at 20:30 Aspirin (Aspirin) 81 mg DAILY PO Last administered on 07/18/16 10:02; Admin Dose 81 MG; Start 07/10/16 at 09:00 Atorvastatin Calcium (Lipitor) 40 mg QHS PO Last administered on 07/17/16 20:45 ; Admin Dose 40 MG; Start 07/09/16 at 21:00 Benztropine Mesylate (Cogentin) 1 mg BID PO Last administered on 07/18/16 10:01 ; Admin Dose 1 MG; Start 07/09/16 at 21:00 Finasteride (Proscar) 5 mg DAILY PO Last administered on 07/18/16 10:05; Admin Dose 5 MG; Start 07/10/16 at 09:00 Acetaminophen/ Hydrocodone Bitart ([place] (5/325)) 1 tab Q4 PRN PO SEVERE PAIN LEVEL 7-10 Last administered on 07/15/16 16:21; Admin Dose 1 TAB; Start at 20:30 Latanoprost (Xalatan) 1 drop QHS BOTH EYES Last administered on 07/17/16 20:44 ; Admin Dose 1 DROP; Start 07/09/16 at 21:00 Multivitamins Therapeutic (Theragran) 1 tab DAILY PO Last administered on 10:03; Admin Dose 1 TAB; Start 07/10/16 at 09:00 Olanzapine (Zyprexa) 5 mg QHS PO Last administered on 07/17/16 20:45; Admin Dose 5 MG; Start 07/09/16 at 21:00 Zinc Sulfate 220 mg 220 mg DAILY PO Last administered on 07/18/16 10:04; Admin Dose 220 MG; Start 07/10/16 at 09:00 Cefepime HCl (Maxipime 1gm/50 ml (Pmx)) 50 ml @ 100 mls/hr Q24H IVPB Last administered on 07/18/16 10:05; Admin Dose 100 MLS/HR; Start 07/10/16 at 10:00 Acetaminophen (Tylenol Supp) 650 mg Q6H PRN [place] ELEVATED TEMPERATURE Last administered on 07/10/16 09:51; Admin Dose 650 MG; Start 07/10/16 at 09:30 Collagenase (Santyl) 1 applic DAILY TOP Last administered on 07/17/16 08:58; Admin Dose 1 APPLIC; Start 07/10/16 at 14:00 Bisacodyl 10 mg 10 mg BID PO Last administered on 07/18/16 10:03; Admin Dose 10 MG; Start 07/13/16 at 15:00 Dextrose (D5W) 1,000 ml @ 100 mls/hr Q10H IV Last administered on 07/18/16 04: 41; Admin Dose 100 MLS/HR; Start 07/13/16 at 16:30 Clonidine (Catapres) 0.2 mg TID PO Last administered on 6/2/17at 10:04; Admin Dose 0.2 MG; Start 07/16/16 at 09:00 Benazepril HCl (Lotensin) 20 mg DAILY PO Last administered on 07/18/16 10:05; Admin Dose 20 MG; Start 07/16/16 at 09:00 Nifedipine (Procardia Xl) 30 mg BID PO Last administered on 07/18/16 10:04; Admin Dose 30 MG; Start 07/15/16 at 22:30 Lorazepam (Ativan) 0.5 mg Q6H PRN IV ANXIETY Last administered on 07/18/16 09: 58; Admin Dose 0.5 MG; Start 07/16/16 at 23:30 Zolpidem Tartrate (Ambien) 2.5 mg HS PRN PO INSOMNIA; Start 07/17/16 at 19:00 Epoetin Zana (Epogen (Esrd)) 6,000 units TuThSa@17 SC Last administered on 20:48; Admin Dose 6,000 UNITS; Start 07/17/16 at 20:00 Miscellaneous Information This patient ellis... PRN PRN XX WOUND CARE; Start at 07:00 Linezolid (Zyvox 600mg/D5W (Pmx)) 300 ml @ 300 mls/hr Q12 IVPB ; Start 07/18/16 at 11:00 JERO GALAN M.D. Jul 18, 2016 10:42
[2016-07-18] MEDS: LINEZOLID 600 MG/D5W (PMX) 300 ML IVPB SCH ×2 (11:45→22:24)
[2016-07-18 13:00] VITALS: BP 96/66; PULSE 62
[2016-07-18] MEDS ORDERED: POTASSIUM CHLORIDE 20 MEQ POWDER FOR ORAL SOLN PO ONE (13:00)
[2016-07-18] MEDS ORDERED: POTASSIUM CHLORIDE 20 MEQ in SOD CHLORIDE 0.9% 100 ML IVPB ONE (14:00)
[2016-07-18] MEDS ORDERED: LORAZEPAM 0.5 MG TAB PO PRN (16:00)
--- NOTE | 2016-07-18 16:22 | PN ---
Date/Time of Note Date/Time of Note DATE: 07/18/16 TIME: 16:18 Assessment/Plan VTE Prophylaxis VTE Prophylaxis Intervention: SCD's Lines/Catheters IV C[facility]ter Type (from [facility]): Peripheral IV Urinary Cath still in place: Yes Reason Cath still needed: urinary retention Assessment/Plan Chief Complaint/Hosp Course Patient is lethargic but arousable, hypo-kalemia, continue on potassium protocol. Assessment/Plan - C. difficile colitis. Continue antibiotics per ID. - Status post colonoscopy with notion of colitis ulcers. Continue to follow-up gastroenterology recommendations. - Infected wounds on bilateral lower extremities. Continue antibiotics per ID. Dr. Patricio is following in ID consultation. - Acute kidney injury, etiology unknown. Dr. Srinivasan is following in nephrology consultation. - Acute metabolic encephalopathy, resolving. - Hypertension. - Chronic obstructive pulmonary disease. - Benign prostatic hypertrophy. Continue Flomax. - Loculated pleural effusion. Continue to monitor chest x-ray. - Multiple decubitus ulcers. Continue current wound care - Acute cerebrovascular accident. Continue aspirin. - Dyslipidemia. Continue Lipitor. - Dementia with behavioral disturbance. Continue Zyprexa. Further recommendations based on clinical course. Plan of care discussed with Dr. Rene. Problems: Exam/Review of Systems Vital Signs Vitals Vital Signs Date Time Temp Pulse Resp B/P Pulse Ox O2 Delivery O2 Flow Rate FiO2 07/18/16 10:00 64 112/66 07/18/16 08:03 98.1 16 95 07/18/16 02:30 Nasal Cannula 2.0 Intake and Output 07/17/16 07/17/16 07/18/16 15:00 23:00 07:00 Intake Total 100 ml 1150 ml 950 ml Output Total 1000 ml 300 ml Balance 100 ml 150 ml 650 ml Exam Constitutional: Lethargic, frail Psych: confusion Neck: supple Respiratory: clear to auscultation Cardiovascular: nl pulses, regular rate and rhythm Gastrointestinal: non-tender, soft Genitourinary - Male: other Skin: other (BLE wounds) Results Result Diagram: 07/18/16 0520 07/18/16 0520 Results 24 hrs Laboratory Tests Test 07/18/16 05:00 07/18/16 05:20 Absolute Reticulocyte Count 0.029 Percent Reticulocyte Count 1.0 White Blood Count 14.0 H Red Blood Count 2.93 L Hemoglobin 8.7 L Hematocrit 26.7 L Mean Corpuscular Volume 91.1 Mean Corpuscular Hemoglobin 29.7 Mean Corpuscular Hemoglobin Concent 32.6 Red Cell Distribution Width 13.2 Platelet Count 280 Mean Platelet Volume 9.4 Neutrophils % 76.7 Lymphocytes % 11.2 L Monocytes % 8.0 Eosinophils % 3.0 Basophils % 0.1 Nucleated Red Blood Cells % 0.0 Neutrophils # 10.7 H Lymphocytes # 1.6 Monocytes # 1.1 H Eosinophils # 0.4 Basophils # 0.0 Nucleated Red Blood Cells # 0.0 Sodium Level 143 Potassium Level 3.0 L Chloride Level 116 H Carbon Dioxide Level 19 L Anion Gap 11 # Blood Urea Nitrogen 67 H Creatinine 3.14 H Glucose Level 124 Calcium Level 7.3 L Medications Medications Current Medications Acetaminophen (Tylenol Tab) 500 mg Q6H PRN PO PAIN AND OR ELEVATED TEMP; Start 07/09/16 at 20:30 Ondansetron HCl (Zofran Inj) 4 mg Q6H PRN IV NAUSEA AND/OR VOMITING; Start at 20:30 Aspirin (Aspirin) 81 mg DAILY PO Last administered on 07/18/16 10:02; Admin Dose 81 MG; Start 07/10/16 at 09:00 Benztropine Mesylate (Cogentin) 1 mg BID PO Last administered on 07/18/16 10:01 ; Admin Dose 1 MG; Start 07/09/16 at 21:00 Finasteride (Proscar) 5 mg DAILY PO Last administered on 07/18/16 10:05; Admin Dose 5 MG; Start 07/10/16 at 09:00 Acetaminophen/ Hydrocodone Bitart ([place] (5/325)) 1 tab Q4 PRN PO SEVERE PAIN LEVEL 7-10 Last administered on 07/15/16 16:21; Admin Dose 1 TAB; Start at 20:30 Latanoprost (Xalatan) 1 drop QHS BOTH EYES Last administered on 07/17/16 20:44 ; Admin Dose 1 DROP; Start 07/09/16 at 21:00 Multivitamins Therapeutic (Theragran) 1 tab DAILY PO Last administered on 10:03; Admin Dose 1 TAB; Start 07/10/16 at 09:00 Olanzapine (Zyprexa) 5 mg QHS PO Last administered on 07/17/16 20:45; Admin Dose 5 MG; Start 07/09/16 at 21:00 Zinc Sulfate 220 mg 220 mg DAILY PO Last administered on 07/18/16 10:04; Admin Dose 220 MG; Start 07/10/16 at 09:00 Cefepime HCl (Maxipime 1gm/50 ml (Pmx)) 50 ml @ 100 mls/hr Q24H IVPB Last administered on 07/18/16 10:05; Admin Dose 100 MLS/HR; Start 07/10/16 at 10:00 Acetaminophen (Tylenol Supp) 650 mg Q6H PRN [place] ELEVATED TEMPERATURE Last administered on 07/10/16 09:51; Admin Dose 650 MG; Start 07/10/16 at 09:30 Collagenase (Santyl) 1 applic DAILY TOP Last administered on 07/17/16 08:58; Admin Dose 1 APPLIC; Start 07/10/16 at 14:00 Bisacodyl 10 mg 10 mg BID PO Last administered on 07/18/16 10:03; Admin Dose 10 MG; Start 07/13/16 at 15:00 Dextrose (D5W) 1,000 ml @ 100 mls/hr Q10H IV Last administered on 07/18/16 04: 41; Admin Dose 100 MLS/HR; Start 07/13/16 at 16:30 Clonidine (Catapres) 0.2 mg TID PO Last administered on 07/18/16 10:04; Admin Dose 0.2 MG; Start 07/16/16 at 09:00 Benazepril HCl (Lotensin) 20 mg DAILY PO Last administered on 07/18/16 10:05; Admin Dose 20 MG; Start 07/16/16 at 09:00 Nifedipine (Procardia Xl) 30 mg BID PO Last administered on 07/18/16 10:04; Admin Dose 30 MG; Start 07/15/16 at 22:30 Lorazepam (Ativan) 0.5 mg Q6H PRN IV ANXIETY Last administered on 07/18/16 09: 58; Admin Dose 0.5 MG; Start 07/16/16 at 23:30 Zolpidem Tartrate (Ambien) 2.5 mg HS PRN PO INSOMNIA; Start 07/17/16 at 19:00 Epoetin Zana (Epogen (Esrd)) 6,000 units TuThSa@17 SC Last administered on 20:48; Admin Dose 6,000 UNITS; Start 07/17/16 at 20:00 Miscellaneous Information This patient ellis... PRN PRN XX WOUND CARE; Start at 07:00 Linezolid (Zyvox 600mg/D5W (Pmx)) 300 ml @ 300 mls/hr Q12 IVPB Last administered on 07/18/16 11:45; Admin Dose 300 MLS/HR; Start 07/18/16 at 11:00 Lorazepam (Ativan) 0.5 mg Q6H PRN PO ANXEITY; Start 07/18/16 at 16:00 ALE MCCONNELL Jul 18, 2016 16:22
--- NOTE | 2016-07-18 17:17 | RADRPT ---
Echocardiogram Report Patient Name: ERNESTINA CALI Gender: Male Date: 1945 Study Date: 18-Jul-2016 Mailroom Coordinator: Herman Payne RDCS Location: [address] [place] [address]. Physician: RONNIE PATEL Quality: Adequate Procedures: Transthoracic echocardiogram with complete 2D, M-Mode, and doppler examination. Indications: Pleural Effusion. 2D/M Mode Doppler Measurement Value Normal Ranges Measurement Value Normal Ranges LVIDd 2D 4.2 3.5 - 5.6 cm AV Peak Ahmet 1.2 m/sec LVIDs 2D 1.6 2.1 - 4.1 cm AV Peak PG 6.0 mmHg LVPWd 2D 1.0 0.6 - 1.1 cm LVOT Peak Ahmet 1.2 m/sec IVSd 2D 1.0 0.6 - 1.1 cm LVOT Peak PG 6.2 mmHg AoR Diam 2D 3.5 2.0 - 3.7 cm MV E Peak Ahmet 0.6 m/sec EDV 2D 77.8 cm3 MV A Peak Ahmet 0.9 m/sec ESV 2D 3.9 cm3 MV E/A 0.7 LA Dimen 2D 3.0 2.3 - 4.0 cm MV Decel Time 197 msec MV Decel [place] 3 MV E/A 0.7 TR Peak Ahmet 2.5 m/sec TR Peak PG 25.4 mmHg RVSP 28.0 mmHg Findings Left Ventricle: Normal left ventricular systolic function. Normal left ventricular cavity size. Normal left ventricular wall thickness. Ejection fraction is visually estimated at 60 %. Tissue Doppler/Mitral Doppler indices are consistent with impaired relaxation (Stage I diastolic dysfunction). Right Ventricle: Normal right ventricular size. Normal right ventricular systolic function. Left Atrium: The left atrium is normal in size. Right Atrium: The right atrium is normal in size. Mitral Valve: Mitral valve leaflets appear mildly thickened. Mild mitral annular calcification. Trace mitral regurgitation. Aortic Valve: Normal appearance of the aortic valve. No significant aortic stenosis or insufficiency. Tricuspid Valve: Normal appearance of the tricuspid valve. Estimated peak PA systolic pressure 28 mmHg. There is trace tricuspid regurgitation. Pulmonic Valve: Pulmonic valve not well visualized. Pericardium: Normal pericardium with no significant pericardial effusion. Aorta: Normal aortic root. IVC: Normal size and normal respiratory collapse consistent with normal right atrial pressure. Conclusions 1.Normal left ventricular systolic function. Normal left ventricular cavity size. Normal left ventricular wall thickness. Ejection fraction is visually estimated at 60 %. Tissue Doppler/Mitral Doppler indices are consistent with impaired relaxation (Stage I diastolic dysfunction). 2.Trace mitral regurgitation. 3.Estimated peak PA systolic pressure 28 mmHg. 4.There is trace tricuspid regurgitation. Electronically Signed By: Ian Bradshaw 18-Jul-2016 17:16:52 -0700 Patient Name: ERNESTINA CALI Study Date: 18-Jul-2016 [id number]
[2016-07-18] MEDS: D5W + KCL 20 MEQ 1,000 ML IV SCH (18:05)
--- NOTE | 2016-07-18 19:27 | CONS ---
Date/Time of Note Date/Time of Note DATE: 07/18/16 TIME: 19:25 Assessment/Plan Assessment/Plan Chief Complaint/Hosp Course 1. Acute kidney injury, Pre- Renal R/o ATN, [place] no signs of obstructive Uropathy, Hx of BPH.- Non Oliguric 2. Hypertension. Normotensive at this time. 3. Chronic obstructive pulmonary disease. 4. Benign prostatic hypertrophy. 5. Loculated pleural effusion. 6. Multiple decubiti 7. Cerebrovascular accident. 8. Dyslipidemia. 9. Dementia with behavioral disturbance. 10. Metabolic Acidosis-stable Likely ATN- Renal function cont to improve and stable, Pt is non oliguric, Supplement K, Na stable No acute indication for HD at this time Problems: Consultation Date/Type/Reason Admit Date/Time July 09, 2016 at 12:24 Type of Consultation: Renal Referring Provider: RONNIE PATEL MD 24 HR Interval Summary Free Text/Dictation Transferred to 6th floor. Good UO, Receiving K supplement Exam/Review of Systems Vital Signs Vitals Vital Signs Date Time Temp Pulse Resp B/P Pulse Ox O2 Delivery O2 Flow Rate FiO2 07/18/16 10:00 64 112/66 07/18/16 09:00 Nasal Cannula 07/18/16 08:03 98.1 16 95 07/18/16 02:30 2.0 Intake and Output 07/17/16 07/17/16 07/18/16 15:00 23:00 07:00 Intake Total 100 ml 1150 ml 950 ml Output Total 1000 ml 300 ml Balance 100 ml 150 ml 650 ml Exam ENMT: mucosa pink and moist Respiratory: diminished breath sounds (Rt), No labored breathing Cardiovascular: edema Gastrointestinal: non-tender, soft Neurological: No lethargic Skin: No diaphoresis Results Result Diagram: 07/18/16 0520 07/18/16 0520 Results 24 hrs Laboratory Tests Test 07/18/16 05:00 07/18/16 05:20 Absolute Reticulocyte Count 0.029 Percent Reticulocyte Count 1.0 White Blood Count 14.0 H Red Blood Count 2.93 L Hemoglobin 8.7 L Hematocrit 26.7 L Mean Corpuscular Volume 91.1 Mean Corpuscular Hemoglobin 29.7 Mean Corpuscular Hemoglobin Concent 32.6 Red Cell Distribution Width 13.2 Platelet Count 280 Mean Platelet Volume 9.4 Neutrophils % 76.7 Lymphocytes % 11.2 L Monocytes % 8.0 Eosinophils % 3.0 Basophils % 0.1 Nucleated Red Blood Cells % 0.0 Neutrophils # 10.7 H Lymphocytes # 1.6 Monocytes # 1.1 H Eosinophils # 0.4 Basophils # 0.0 Nucleated Red Blood Cells # 0.0 Sodium Level 143 Potassium Level 3.0 L Chloride Level 116 H Carbon Dioxide Level 19 L Anion Gap 11 # Blood Urea Nitrogen 67 H Creatinine 3.14 H Glucose Level 124 Calcium Level 7.3 L Medications Medications Current Medications Acetaminophen (Tylenol Tab) 500 mg Q6H PRN PO PAIN AND OR ELEVATED TEMP; Start 07/09/16 at 20:30 Ondansetron HCl (Zofran Inj) 4 mg Q6H PRN IV NAUSEA AND/OR VOMITING; Start at 20:30 Aspirin (Aspirin) 81 mg DAILY PO Last administered on 07/18/16 10:02; Admin Dose 81 MG; Start 07/10/16 at 09:00 Benztropine Mesylate (Cogentin) 1 mg BID PO Last administered on 07/18/16 10:01 ; Admin Dose 1 MG; Start 07/09/16 at 21:00 Finasteride (Proscar) 5 mg DAILY PO Last administered on 07/18/16 10:05; Admin Dose 5 MG; Start 07/10/16 at 09:00 Acetaminophen/ Hydrocodone Bitart ([place] (5/325)) 1 tab Q4 PRN PO SEVERE PAIN LEVEL 7-10 Last administered on 07/15/16 16:21; Admin Dose 1 TAB; Start at 20:30 Latanoprost (Xalatan) 1 drop QHS BOTH EYES Last administered on 07/17/16 20:44 ; Admin Dose 1 DROP; Start 07/09/16 at 21:00 Multivitamins Therapeutic (Theragran) 1 tab DAILY PO Last administered on 10:03; Admin Dose 1 TAB; Start 07/10/16 at 09:00 Olanzapine (Zyprexa) 5 mg QHS PO Last administered on 07/17/16 20:45; Admin Dose 5 MG; Start 07/09/16 at 21:00 Zinc Sulfate 220 mg 220 mg DAILY PO Last administered on 07/18/16 10:04; Admin Dose 220 MG; Start 07/10/16 at 09:00 Cefepime HCl (Maxipime 1gm/50 ml (Pmx)) 50 ml @ 100 mls/hr Q24H IVPB Last administered on 07/18/16 10:05; Admin Dose 100 MLS/HR; Start 07/10/16 at 10:00 Acetaminophen (Tylenol Supp) 650 mg Q6H PRN [place] ELEVATED TEMPERATURE Last administered on 07/10/16 09:51; Admin Dose 650 MG; Start 07/10/16 at 09:30 Collagenase (Santyl) 1 applic DAILY TOP Last administered on 07/17/16 08:58; Admin Dose 1 APPLIC; Start 07/10/16 at 14:00 Bisacodyl (Dulcolax) 10 mg BID PO Last administered on 07/18/16 10:03; Admin Dose 10 MG; Start 07/13/16 at 15:00 Clonidine (Catapres) 0.2 mg TID PO Last administered on 07/18/16 10:04; Admin Dose 0.2 MG; Start 07/16/16 at 09:00 Benazepril HCl (Lotensin) 20 mg DAILY PO Last administered on 07/18/16 10:05; Admin Dose 20 MG; Start 07/16/16 at 09:00 Nifedipine (Procardia Xl) 30 mg BID PO Last administered on 07/18/16 10:04; Admin Dose 30 MG; Start 07/15/16 at 22:30 Lorazepam (Ativan) 0.5 mg Q6H PRN IV ANXIETY Last administered on 07/18/16 09: 58; Admin Dose 0.5 MG; Start 07/16/16 at 23:30 Zolpidem Tartrate (Ambien) 2.5 mg HS PRN PO INSOMNIA; Start 07/17/16 at 19:00 Epoetin Zana (Epogen (Esrd)) 6,000 units TuThSa@17 SC Last administered on 20:48; Admin Dose 6,000 UNITS; Start 07/17/16 at 20:00 Miscellaneous Information This patient ellis... PRN PRN XX WOUND CARE; Start at 07:00 Linezolid (Zyvox 600mg/D5W (Pmx)) 300 ml @ 300 mls/hr Q12 IVPB Last administered on 07/18/16 11:45; Admin Dose 300 MLS/HR; Start 07/18/16 at 11:00 Lorazepam 0.5 mg 0.5 mg Q6H PRN PO ANXEITY; Start 07/18/16 at 16:00 Potassium Chloride/Dextrose (D5W + KCl 20 Meq) 1,000 ml @ 80 mls/hr [id number] IV Last administered on 07/18/16 18:05; Admin Dose 80 MLS/HR; Start 07/18/16 at 16 :30 Procedures Procedures PROCEDURE: XR Chest. CLINICAL INDICATION: Cough TECHNIQUE: Single portable view of the chest was obtained COMPARISON: Yesterday FINDINGS: The study is limited due to patient positioning. The upper lungs are partially obscured by patient's chin. There is worsening right lower lobe infiltrate and right pleural effusion. There is worsening small to moderate left pleural effusion. There is mild cardiomegaly.. The heart, lungs and mediastinum are otherwise unchanged. . RPTAT: AA IMPRESSION: Limited study. Worsening right lower lobe infiltrate and right pleural effusion. Worsening small to moderate left pleural effusion. No other significant change. .Gerard De Jesus MD, MD Date Time Electronically viewed and signed by .Gerard De Jesus MD, MD on 07/17/2016 16: 27 TACOS GREEN MD Jul 18, 2016 19:27
[2016-07-18 20:15] VITALS: BP 113/62; RESP 18
[2016-07-18] MEDS: LATANOPROST 0.005% 2.5 ML OPH BOTH EYES SCH (22:24)
[2016-07-18] MEDS: OLANZAPINE 5 MG TAB PO SCH (22:24)
[2016-07-19] MEDS: D5W + KCL 20 MEQ 1,000 ML IV SCH ×2 (05:00→18:05)
[2016-07-19 05:55] LABS: ADD SCAN DIFF NO
[2016-07-19 06:00] LABS: BASOPHILS % 0.1 % (0.0-2.0); EOSINOPHILS # 0.4 10^3/ul (0.0-0.5); EOSINOPHILS % 3.6 % (0.0-7.0); HEMOGLOBIN 9.1 g/dl (14.0-18.0); LYMPHOCYTES # 1.5 10^3/ul (0.8-2.9); LYMPHOCYTES % 12.7 % (15.0-51.0); MEAN CORPUSCULAR HEMOGLOBIN 29.2 pg (29.0-33.0); MEAN CORPUSCULAR HGB CONC 32.5 g/dl (32.0-37.0); MEAN CORPUSCULAR VOLUME 89.7 fl (82.0-101.0); MEAN PLATELET VOLUME 9.7 fl (7.4-10.4); MONOCYTES % 8.2 % (0.0-11.0); NEUTROPHILS % 74.3 % (39.0-77.0); PLATELET COUNT 283 10^3/UL (140-415); RED BLOOD COUNT 3.12 10^6/ul (4.70-6.10); RED CELL DISTRIBUTION WIDTH 13.3 % (11.5-14.5); WHITE BLOOD COUNT 12.2 10^3/ul (4.8-10.8)
[2016-07-19 06:17] LABS: CALCIUM 7.2 mg/dl (8.4-10.2); CREATININE 3.09 mg/dl (0.61-1.24); POTASSIUM 3.4 mmol/L (3.5-5.1)
[2016-07-19 07:44] VITALS: BP 148/76; RESP 16
[2016-07-19] MEDS: BISACODYL (EC) 5 MG TAB PO SCH ×2 (09:00→21:00)
[2016-07-19] MEDS: BENZTROPINE 1 MG TAB PO SCH ×2 (10:10→22:26)
[2016-07-19] MEDS: MULTIVITAMINS THERAPEUTIC TAB PO SCH (10:10)
[2016-07-19] MEDS: ZINC SULFATE 220 MG CAP PO SCH (10:10)
[2016-07-19] MEDS: ASPIRIN 81 MG TAB PO SCH (10:10)
[2016-07-19] MEDS: FINASTERIDE 5 MG TAB PO SCH (10:10)
[2016-07-19] MEDS: PANTOPRAZOLE (EC) 40 MG TAB PO SCH (10:11)
[2016-07-19] MEDS: CALCIUM CARBONATE 750 MG CHEW TAB PO SCH ×3 (10:11→18:06)
[2016-07-19] MEDS: BENAZEPRIL 20 MG TAB PO SCH (10:11)
[2016-07-19] MEDS: COLLAGENASE 30 GM TUBE TOP SCH (10:12)
[2016-07-19] MEDS: LINEZOLID 600 MG/D5W (PMX) 300 ML IVPB SCH ×2 (10:13→22:27)
[2016-07-19] MEDS: CEFEPIME 1GM/50 ML (PMX) 50 ML IVPB SCH (10:13)
--- NOTE | 2016-07-19 14:17 | PN ---
Date/Time of Note Date/Time of Note DATE: 07/19/16 TIME: 14:13 Assessment/Plan VTE Prophylaxis VTE Prophylaxis Intervention: SCD's Lines/Catheters IV [facility] Peripheral IV Central line still needed: Yes Urinary Cath still in place: Yes Reason Cath still needed: urinary retention Assessment/Plan Assessment/Plan - C. difficile colitis. Continue antibiotics per ID. - Status post colonoscopy with notion of colitis ulcers. Continue to follow-up gastroenterology recommendations. - Infected wounds on bilateral lower extremities. Continue antibiotics per ID. Dr. Patricio is following in ID consultation. - Acute kidney injury, etiology unknown. Dr. Srinivasan is following in nephrology consultation. - Acute metabolic encephalopathy, resolving. - Hypertension. - Chronic obstructive pulmonary disease. - Benign prostatic hypertrophy. Continue Flomax. - Loculated pleural effusion. Continue to monitor chest x-ray. - Multiple decubitus ulcers. Continue current wound care - Acute cerebrovascular accident. Continue aspirin. - Dyslipidemia. Continue Lipitor. - Dementia with behavioral disturbance. Continue Zyprexa. Further recommendations based on clinical course. Plan of care discussed with Dr. Rene. Subjective 24 Hr Interval Summary Free Text/Dictation Patient is alert, no agitation noted,, awake, responsive to name, afebrile, hypo -kalemia, continue on potassium protocol. Discussed with staff. We will do the CT brain because of altered mental status pending follow-up results, staff Respiratory: no complaints, shortness of breath Cardiovascular: no complaints Gastrointestinal: no complaints Exam/Review of Systems Vital Signs Vitals Vital Signs Date Time Temp Pulse Resp B/P Pulse Ox O2 Delivery O2 Flow Rate FiO2 07/19/16 07:44 97.7 92 16 148/76 94 07/18/16 21:45 Nasal Cannula 2.0 Intake and Output 07/18/16 07/18/16 07/19/16 15:00 23:00 07:00 Intake Total 350 ml 1700 ml 800 ml Output Total 550 ml 200 ml Balance 350 ml 1150 ml 600 ml Exam Constitutional: alert, oriented, well developed Respiratory: clear to auscultation, normal air movement Cardiovascular: nl pulses, regular rate and rhythm Gastrointestinal: non-tender, soft Musculoskeletal: nl extremities to inspection Extremities: normal pulses Neurological: confused Skin: nl turgor Results Result Diagram: 6/3/17 0516 6/3/17 0516 Results 24 hrs Laboratory Tests Test 07/19/16 05:16 White Blood Count 12.2 H Red Blood Count 3.12 L Hemoglobin 9.1 L Hematocrit 28.0 L Mean Corpuscular Volume 89.7 Mean Corpuscular Hemoglobin 29.2 Mean Corpuscular Hemoglobin Concent 32.5 Red Cell Distribution Width 13.3 Platelet Count 283 Mean Platelet Volume 9.7 Neutrophils % 74.3 Lymphocytes % 12.7 L Monocytes % 8.2 Eosinophils % 3.6 Basophils % 0.1 Nucleated Red Blood Cells % 0.0 Neutrophils # 9.0 H Lymphocytes # 1.5 Monocytes # 1.0 H Eosinophils # 0.4 Basophils # 0.0 Nucleated Red Blood Cells # 0.0 Sodium Level 141 Potassium Level 3.4 L Chloride Level 116 H Carbon Dioxide Level 20 L Anion Gap 8 Blood Urea Nitrogen 64 H Creatinine 3.09 H Glucose Level 92 Calcium Level 7.2 L Medications Medications Current Medications Acetaminophen (Tylenol Tab) 500 mg Q6H PRN PO PAIN AND OR ELEVATED TEMP; Start 07/09/16 at 20:30 Ondansetron HCl (Zofran Inj) 4 mg Q6H PRN IV NAUSEA AND/OR VOMITING; Start at 20:30 Aspirin (Aspirin) 81 mg DAILY PO Last administered on 07/19/16 10:10; Admin Dose 81 MG; Start 07/10/16 at 09:00 Benztropine Mesylate (Cogentin) 1 mg BID PO Last administered on 07/19/16 10:10 ; Admin Dose 1 MG; Start 07/09/16 at 21:00 Finasteride (Proscar) 5 mg DAILY PO Last administered on 07/19/16 10:10; Admin Dose 5 MG; Start 07/10/16 at 09:00 Acetaminophen/ Hydrocodone Bitart ([place] (5/325)) 1 tab Q4 PRN PO SEVERE PAIN LEVEL 7-10 Last administered on 07/15/16 16:21; Admin Dose 1 TAB; Start at 20:30 Latanoprost (Xalatan) 1 drop QHS BOTH EYES Last administered on 07/18/16 22:24 ; Admin Dose 1 DROP; Start 07/09/16 at 21:00 Multivitamins Therapeutic (Theragran) 1 tab DAILY PO Last administered on 10:10; Admin Dose 1 TAB; Start 07/10/16 at 09:00 Olanzapine (Zyprexa) 5 mg QHS PO Last administered on 07/18/16 22:24; Admin Dose 5 MG; Start 07/09/16 at 21:00 Zinc Sulfate 220 mg 220 mg DAILY PO Last administered on 07/19/16 10:10; Admin Dose 220 MG; Start 07/10/16 at 09:00 Cefepime HCl (Maxipime 1gm/50 ml (Pmx)) 50 ml @ 100 mls/hr Q24H IVPB Last administered on 07/19/16 10:13; Admin Dose 100 MLS/HR; Start 07/10/16 at 10:00 Acetaminophen (Tylenol Supp) 650 mg Q6H PRN [place] ELEVATED TEMPERATURE Last administered on 07/10/16 09:51; Admin Dose 650 MG; Start 07/10/16 at 09:30 Collagenase (Santyl) 1 applic DAILY TOP Last administered on 07/19/16 10:12; Admin Dose 1 APPLIC; Start 07/10/16 at 14:00 Bisacodyl (Dulcolax) 10 mg BID PO Last administered on 07/18/16 10:03; Admin Dose 10 MG; Start 07/13/16 at 15:00 Benazepril HCl (Lotensin) 20 mg DAILY PO Last administered on 07/19/16 10:11; Admin Dose 20 MG; Start 07/16/16 at 09:00 Lorazepam (Ativan) 0.5 mg Q6H PRN IV ANXIETY Last administered on 07/18/16 09: 58; Admin Dose 0.5 MG; Start 07/16/16 at 23:30 Zolpidem Tartrate (Ambien) 2.5 mg HS PRN PO INSOMNIA; Start 07/17/16 at 19:00 Epoetin Zana (Epogen (Esrd)) 6,000 units TuThSa@17 SC Last administered on 20:48; Admin Dose 6,000 UNITS; Start 07/17/16 at 20:00 Miscellaneous Information This patient ellis... PRN PRN XX WOUND CARE; Start at 07:00 Linezolid (Zyvox 600mg/D5W (Pmx)) 300 ml @ 300 mls/hr Q12 IVPB Last administered on 07/19/16 10:13; Admin Dose 300 MLS/HR; Start 07/18/16 at 11:00 Lorazepam 0.5 mg 0.5 mg Q6H PRN PO ANXEITY; Start 07/18/16 at 16:00 Potassium Chloride/Dextrose (D5W + KCl 20 Meq) 1,000 ml @ 80 mls/hr [id number] IV Last administered on 07/18/16 18:05; Admin Dose 80 MLS/HR; Start 07/18/16 at 16 :30 Clonidine (Catapres) 0.1 mg TID PO Last administered on 07/19/16 10:10; Admin Dose 0.1 MG; Start 07/19/16 at 09:00 Nifedipine (Procardia Xl) 30 mg QHS PO ; Start 07/20/16 at 21:00 ISAEL CRYSTAL Jul 19, 2016 14:17
[2016-07-19] MEDS ORDERED: POTASSIUM CHLORIDE (SR) 10 MEQ TAB PO ONE (14:30)
--- NOTE | 2016-07-19 14:47 | RADRPT ---
PROCEDURE: CT Brain without contrast. CLINICAL INDICATION: Altered mental status TECHNIQUE: A CT of the brain was performed on a multidetector CT scanner utilizing axial imaging f rom the skull base through the vertex without IV contrast. Multiplanar reformatted images were made . Images were reviewed on a PACS workstation. The CTDIvol is 45 mGy and the DLP is 810 mGycm. COMPARISON: Head CT July 11, 2016 FINDINGS: There is motion artifact limiting the sensitivity of this exam. Noted is moderate diffuse cerebral volume loss with sulcal and ventricular dilatation. No discrete extra-axial fluid collection or masses present. The ventricles are in the midline and of normal con tour and configuration. Periventricular and subcortical white matter disease is seen in both cerebr al hemispheres. No associated mass effect is present. There is no intracranial hemorrhage. There is debris in the right maxillary sinus. IMPRESSION: Atrophy. White matter disease compatible with chronic small vessel ischemia. No gross mass, infarc t or hemorrhage on motion limited head CT. .Moi Camargo MD, MD Date Time Electronically viewed and signed by .Moi Camargo MD, on 07/19/2016 14:47 .A/
--- NOTE | 2016-07-19 16:34 | CONS ---
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 Given by IV because Pt's often confused and PO intake can be affected. Avoiding vancomycin due to SRAVANTHI. Will monitor CBC while Pt's on linezolid - continue empiric, renally dosed cefepime (07/10/2016-); if no MDR gram negative bacteria in wound cultures, will d/c it - continue PO vancomycin (02/14/2017-) while Pt's on antibiotics - d/c cefepime d/w Dr Timmons Consultation Date/Type/Reason Admit Date/Time July 09, 2016 at 12:24 Initial Consult Date 07/11/16 Type of Consultation: ID Referring Provider: RONNIE PATEL MD 24 HR Interval Summary Free Text/Dictation Alert, w/o c/o. Denies chills, fever, sweats, n/v/d, pain, SOB Constitutional: poor po, requiring O2 Exam/Review of Systems Vital Signs Vitals Vital Signs Date Time Temp Pulse Resp B/P Pulse Ox O2 Delivery O2 Flow Rate FiO2 07/19/16 08:10 Nasal Cannula 2.0 07/19/16 07:44 97.7 92 16 148/76 94 Intake and Output 07/18/16 07/18/16 07/19/16 15:00 23:00 07:00 Intake Total 350 ml 1700 ml 800 ml Output Total 550 ml 200 ml Balance 350 ml 1150 ml 600 ml Exam Constitutional: alert, frail, oriented Psych: no complaints Head: normocephalic Eyes: EOMI, nl conjunctiva Neck: supple Respiratory: clear to auscultation Cardiovascular: regular rate and rhythm Gastrointestinal: bowel sounds, non-tender, soft Extremities: other (B/L heel dsg cdi) Neurological: nl mental status Results Result Diagram: 07/19/16 0516 07/19/16 0516 Results 24 hrs Laboratory Tests Test 07/19/16 05:16 White Blood Count 12.2 H Red Blood Count 3.12 L Hemoglobin 9.1 L Hematocrit 28.0 L Mean Corpuscular Volume 89.7 Mean Corpuscular Hemoglobin 29.2 Mean Corpuscular Hemoglobin Concent 32.5 Red Cell Distribution Width 13.3 Platelet Count 283 Mean Platelet Volume 9.7 Neutrophils % 74.3 Lymphocytes % 12.7 L Monocytes % 8.2 Eosinophils % 3.6 Basophils % 0.1 Nucleated Red Blood Cells % 0.0 Neutrophils # 9.0 H Lymphocytes # 1.5 Monocytes # 1.0 H Eosinophils # 0.4 Basophils # 0.0 Nucleated Red Blood Cells # 0.0 Sodium Level 141 Potassium Level 3.4 L Chloride Level 116 H Carbon Dioxide Level 20 L Anion Gap 8 Blood Urea Nitrogen 64 H Creatinine 3.09 H Glucose Level 92 Calcium Level 7.2 L Medications Medications Current Medications Acetaminophen (Tylenol Tab) 500 mg Q6H PRN PO PAIN AND OR ELEVATED TEMP; Start 07/09/16 at 20:30 Ondansetron HCl (Zofran Inj) 4 mg Q6H PRN IV NAUSEA AND/OR VOMITING; Start at 20:30 Aspirin (Aspirin) 81 mg DAILY PO Last administered on 07/19/16 10:10; Admin Dose 81 MG; Start 07/10/16 at 09:00 Benztropine Mesylate (Cogentin) 1 mg BID PO Last administered on 07/19/16 10:10 ; Admin Dose 1 MG; Start 07/09/16 at 21:00 Finasteride (Proscar) 5 mg DAILY PO Last administered on 07/19/16 10:10; Admin Dose 5 MG; Start 07/10/16 at 09:00 Acetaminophen/ Hydrocodone Bitart ([place] (5/325)) 1 tab Q4 PRN PO SEVERE PAIN LEVEL 7-10 Last administered on 07/15/16 16:21; Admin Dose 1 TAB; Start at 20:30 Latanoprost (Xalatan) 1 drop QHS BOTH EYES Last administered on 07/18/16 22:24 ; Admin Dose 1 DROP; Start 07/09/16 at 21:00 Multivitamins Therapeutic (Theragran) 1 tab DAILY PO Last administered on 10:10; Admin Dose 1 TAB; Start 07/10/16 at 09:00 Olanzapine (Zyprexa) 5 mg QHS PO Last administered on 07/18/16 22:24; Admin Dose 5 MG; Start 07/09/16 at 21:00 Zinc Sulfate 220 mg 220 mg DAILY PO Last administered on 07/19/16 10:10; Admin Dose 220 MG; Start 07/10/16 at 09:00 Cefepime HCl (Maxipime 1gm/50 ml (Pmx)) 50 ml @ 100 mls/hr Q24H IVPB Last administered on 07/19/16 10:13; Admin Dose 100 MLS/HR; Start 07/10/16 at 10:00 Acetaminophen (Tylenol Supp) 650 mg Q6H PRN [place] ELEVATED TEMPERATURE Last administered on 07/10/16 09:51; Admin Dose 650 MG; Start 07/10/16 at 09:30 Collagenase (Santyl) 1 applic DAILY TOP Last administered on 07/19/16 10:12; Admin Dose 1 APPLIC; Start 07/10/16 at 14:00 Bisacodyl (Dulcolax) 10 mg BID PO Last administered on 07/18/16 10:03; Admin Dose 10 MG; Start 07/13/16 at 15:00 Benazepril HCl (Lotensin) 20 mg DAILY PO Last administered on 07/19/16 10:11; Admin Dose 20 MG; Start 07/16/16 at 09:00 Lorazepam (Ativan) 0.5 mg Q6H PRN IV ANXIETY Last administered on 07/18/16 09: 58; Admin Dose 0.5 MG; Start 07/16/16 at 23:30 Zolpidem Tartrate (Ambien) 2.5 mg HS PRN PO INSOMNIA; Start 07/17/16 at 19:00 Epoetin Zana (Epogen (Esrd)) 6,000 units TuThSa@17 SC Last administered on 20:48; Admin Dose 6,000 UNITS; Start 07/17/16 at 20:00 Miscellaneous Information This patient ellis... PRN PRN XX WOUND CARE; Start at 07:00 Linezolid (Zyvox 600mg/D5W (Pmx)) 300 ml @ 300 mls/hr Q12 IVPB Last administered on 07/19/16 10:13; Admin Dose 300 MLS/HR; Start 07/18/16 at 11:00 Lorazepam 0.5 mg 0.5 mg Q6H PRN PO ANXEITY; Start 07/18/16 at 16:00 Potassium Chloride/Dextrose (D5W + KCl 20 Meq) 1,000 ml @ 80 mls/hr [id number] IV Last administered on 07/18/16 18:05; Admin Dose 80 MLS/HR; Start 07/18/16 at 16 :30 Clonidine (Catapres) 0.1 mg TID PO Last administered on 07/19/16 10:10; Admin Dose 0.1 MG; Start 07/19/16 at 09:00 Nifedipine (Procardia Xl) 30 mg QHS PO ; Start 07/20/16 at 21:00 JERO TIMMONS M.D. 07/20/16 1248: Assessment/Plan Assessment/Plan Additional Assessment/Plan Shanelle attestation: I discussed the management with MYRIAM Lee and agree with above Exam/Review of Systems Results Result Diagram: 07/19/16 0516 07/19/16 0516 BENITA LEE Jul 19, 2016 16:34 JERO TIMMONS M.D. Jul 20, 2016 12:48
[2016-07-19] MEDS: EPOETIN 3000 UNITS/1 ML INJ (ESRD) SC SCH (18:06)
--- NOTE | 2016-07-19 19:23 | CONS ---
Date/Time of Note Date/Time of Note DATE: 07/19/16 TIME: 19:13 Assessment/Plan Assessment/Plan Chief Complaint/Hosp Course Pt needs close f/u lab in AM Problems: Additional Assessment/Plan Will get f/u CXR decrease IVF check 24 hr cet cleaarance & PEP Cont'd Hospitalization Reason: Increase activity Consultation Date/Type/Reason Admit Date/Time July 09, 2016 at 12:24 Initial Consult Date 07/11/16 Type of Consultation: renal Referring Provider: RONNIE PATEL MD 24 HR Interval Summary Free Text/Dictation More alert & communicative Exam/Review of Systems Vital Signs Vitals Vital Signs Date Time Temp Pulse Resp B/P Pulse Ox O2 Delivery O2 Flow Rate FiO2 07/19/16 08:10 Nasal Cannula 2.0 07/19/16 07:44 97.7 92 16 148/76 94 Intake and Output 07/18/16 07/18/16 07/19/16 15:00 23:00 07:00 Intake Total 350 ml 1700 ml 800 ml Output Total 550 ml 200 ml Balance 350 ml 1150 ml 600 ml Exam BP is running low Constitutional: alert, well developed Psych: nl mood/affect, no complaints Head: atraumatic, normocephalic Eyes: EOMI, PERRL, nl conjunctiva, nl lids, nl sclera ENMT: nl external ears & nose, nl lips & teeth, nl nasal mucosa & septum Neck: non-tender, supple Respiratory: clear to auscultation, normal air movement Cardiovascular: nl pulses, regular rate and rhythm Gastrointestinal: nl liver, spleen, non-tender, soft Musculoskeletal: nl extremities to inspection, nl gait and stance Extremities: normal pulses Neurological: SENIOR DATABASE ADMINISTRATOR II-XII intact, confused, nl mental status, nl speech, nl strength Skin: nl turgor, No rash or lesions Lymph: nl lymph nodes Results WBC has decreased, Hct 28% BUN?Creat improving Result Diagram: 07/19/1616 07/19/16 0516 Results 24 hrs Laboratory Tests Test 07/19/16 05:16 White Blood Count 12.2 H Red Blood Count 3.12 L Hemoglobin 9.1 L Hematocrit 28.0 L Mean Corpuscular Volume 89.7 Mean Corpuscular Hemoglobin 29.2 Mean Corpuscular Hemoglobin Concent 32.5 Red Cell Distribution Width 13.3 Platelet Count 283 Mean Platelet Volume 9.7 Neutrophils % 74.3 Lymphocytes % 12.7 L Monocytes % 8.2 Eosinophils % 3.6 Basophils % 0.1 Nucleated Red Blood Cells % 0.0 Neutrophils # 9.0 H Lymphocytes # 1.5 Monocytes # 1.0 H Eosinophils # 0.4 Basophils # 0.0 Nucleated Red Blood Cells # 0.0 Sodium Level 141 Potassium Level 3.4 L Chloride Level 116 H Carbon Dioxide Level 20 L Anion Gap 8 Blood Urea Nitrogen 64 H Creatinine 3.09 H Glucose Level 92 Calcium Level 7.2 L Medications Medications Current Medications Acetaminophen (Tylenol Tab) 500 mg Q6H PRN PO PAIN AND OR ELEVATED TEMP; Start 07/09/16 at 20:30 Ondansetron HCl (Zofran Inj) 4 mg Q6H PRN IV NAUSEA AND/OR VOMITING; Start at 20:30 Aspirin (Aspirin) 81 mg DAILY PO Last administered on 07/19/16 10:10; Admin Dose 81 MG; Start 07/10/16 at 09:00 Benztropine Mesylate (Cogentin) 1 mg BID PO Last administered on 07/19/16 10:10 ; Admin Dose 1 MG; Start 07/09/16 at 21:00 Finasteride (Proscar) 5 mg DAILY PO Last administered on 07/19/16 10:10; Admin Dose 5 MG; Start 07/10/16 at 09:00 Acetaminophen/ Hydrocodone Bitart ([place] (5/325)) 1 tab Q4 PRN PO SEVERE PAIN LEVEL 7-10 Last administered on 07/15/16 16:21; Admin Dose 1 TAB; Start at 20:30 Latanoprost (Xalatan) 1 drop QHS BOTH EYES Last administered on 07/18/16 22:24 ; Admin Dose 1 DROP; Start 07/09/16 at 21:00 Multivitamins Therapeutic (Theragran) 1 tab DAILY PO Last administered on 10:10; Admin Dose 1 TAB; Start 07/10/16 at 09:00 Olanzapine (Zyprexa) 5 mg QHS PO Last administered on 07/18/16 22:24; Admin Dose 5 MG; Start 07/09/16 at 21:00 Zinc Sulfate 220 mg 220 mg DAILY PO Last administered on 07/19/16 10:10; Admin Dose 220 MG; Start 07/10/16 at 09:00 Cefepime HCl (Maxipime 1gm/50 ml (Pmx)) 50 ml @ 100 mls/hr Q24H IVPB Last administered on 07/19/16 10:13; Admin Dose 100 MLS/HR; Start 07/10/16 at 10:00 Acetaminophen (Tylenol Supp) 650 mg Q6H PRN [place] ELEVATED TEMPERATURE Last administered on 07/10/16 09:51; Admin Dose 650 MG; Start 07/10/16 at 09:30 Collagenase (Santyl) 1 applic DAILY TOP Last administered on 07/19/16 10:12; Admin Dose 1 APPLIC; Start 07/10/16 at 14:00 Bisacodyl (Dulcolax) 10 mg BID PO Last administered on 07/18/16 10:03; Admin Dose 10 MG; Start 07/13/16 at 15:00 Benazepril HCl (Lotensin) 20 mg DAILY PO Last administered on 07/19/16 10:11; Admin Dose 20 MG; Start 07/16/16 at 09:00 Lorazepam (Ativan) 0.5 mg Q6H PRN IV ANXIETY Last administered on 07/18/16 09: 58; Admin Dose 0.5 MG; Start 07/16/16 at 23:30 Zolpidem Tartrate (Ambien) 2.5 mg HS PRN PO INSOMNIA; Start 07/17/16 at 19:00 Epoetin Zana (Epogen (Esrd)) 6,000 units TuThSa@17 SC Last administered on 18:06; Admin Dose 6,000 UNITS; Start 07/17/16 at 20:00 Miscellaneous Information This patient ellis... PRN PRN XX WOUND CARE; Start at 07:00 Linezolid (Zyvox 600mg/D5W (Pmx)) 300 ml @ 300 mls/hr Q12 IVPB Last administered on 07/19/16 10:13; Admin Dose 300 MLS/HR; Start 07/18/16 at 11:00 Lorazepam 0.5 mg 0.5 mg Q6H PRN PO ANXEITY; Start 07/18/16 at 16:00 Potassium Chloride/Dextrose (D5W + KCl 20 Meq) 1,000 ml @ 80 mls/hr [id number] IV Last administered on 07/19/16 18:05; Admin Dose 80 MLS/HR; Start 07/18/16 at 16 :30 Clonidine (Catapres) 0.1 mg TID PO Last administered on 07/19/16 10:10; Admin Dose 0.1 MG; Start 07/19/16 at 09:00 Nifedipine (Procardia Xl) 30 mg QHS PO ; Start 07/20/16 at 21:00 JAUNA AYALA MD Jul 19, 2016 19:23
[2016-07-19 20:00] VITALS: BP 193/99; RESP 20
[2016-07-19 21:30] VITALS: BP 154/78; PULSE 75; RESP 20
[2016-07-19] MEDS: OLANZAPINE 5 MG TAB PO SCH (22:26)
[2016-07-19] MEDS: LATANOPROST 0.005% 2.5 ML OPH BOTH EYES SCH (22:27)
[2016-07-20] MEDS: D5W + KCL 20 MEQ 1,000 ML IV SCH ×3 (05:54→18:30)
[2016-07-20 06:03] LABS: ADD SCAN DIFF NO
[2016-07-20 06:08] LABS: BASOPHILS % 0.1 % (0.0-2.0); EOSINOPHILS # 0.4 10^3/ul (0.0-0.5); EOSINOPHILS % 2.1 % (0.0-7.0); HEMATOCRIT 25.3 % (42.0-52.0); HEMOGLOBIN 8.7 g/dl (14.0-18.0); LYMPHOCYTES # 1.8 10^3/ul (0.8-2.9); LYMPHOCYTES % 9.9 % (15.0-51.0); MEAN CORPUSCULAR HEMOGLOBIN 30.3 pg (29.0-33.0); MEAN CORPUSCULAR HGB CONC 34.4 g/dl (32.0-37.0); MEAN CORPUSCULAR VOLUME 88.2 fl (82.0-101.0); MEAN PLATELET VOLUME 9.8 fl (7.4-10.4); MONOCYTE # 1.3 10^3/ul (0.3-0.9); MONOCYTES % 7.3 % (0.0-11.0); NEUTROPHIL # 14.1 10^3/ul (1.6-7.5); NEUTROPHILS % 79.7 % (39.0-77.0); PLATELET COUNT 302 10^3/UL (140-415); RED BLOOD COUNT 2.87 10^6/ul (4.70-6.10); RED CELL DISTRIBUTION WIDTH 13.2 % (11.5-14.5); WHITE BLOOD COUNT 17.7 10^3/ul (4.8-10.8)
[2016-07-20 06:27] LABS: CALCIUM 7.1 mg/dl (8.4-10.2); CREATININE 3.17 mg/dl (0.61-1.24); POTASSIUM 3.6 mmol/L (3.5-5.1)
[2016-07-20 08:21] VITALS: BP 177/80; RESP 16
[2016-07-20] MEDS: BISACODYL (EC) 5 MG TAB PO SCH ×2 (09:00→20:49)
[2016-07-20] MEDS: PANTOPRAZOLE (EC) 40 MG TAB PO SCH (09:34)
[2016-07-20] MEDS: BENZTROPINE 1 MG TAB PO SCH ×2 (09:34→20:48)
[2016-07-20] MEDS: CALCIUM CARBONATE 750 MG CHEW TAB PO SCH ×3 (09:34→18:30)
[2016-07-20] MEDS: LINEZOLID 600 MG/D5W (PMX) 300 ML IVPB SCH ×2 (09:34→20:49)
[2016-07-20] MEDS: MULTIVITAMINS THERAPEUTIC TAB PO SCH (09:35)
[2016-07-20] MEDS: ASPIRIN 81 MG TAB PO SCH (09:35)
[2016-07-20] MEDS: FINASTERIDE 5 MG TAB PO SCH (09:35)
[2016-07-20] MEDS: BENAZEPRIL 20 MG TAB PO SCH (09:35)
[2016-07-20] MEDS: ZINC SULFATE 220 MG CAP PO SCH (09:35)
[2016-07-20] MEDS: COLLAGENASE 30 GM TUBE TOP SCH (09:36)
--- NOTE | 2016-07-20 10:50 | RADRPT ---
PROCEDURE: XR Chest. CLINICAL INDICATION: Pneumonia TECHNIQUE: Single frontal chest x-ray. COMPARISON: 07/17/2016 FINDINGS: Bilateral basilar consolidations and infiltrates are improved. Small bilateral pleural effusions ar e decreased. . There are no new infiltrates identified.. Mild cardiomegaly is unchanged.. The osse ous structures are intact. IMPRESSION: Decreased bilateral lower lung consolidations and small effusions.. RPTAT: QQ .Keegan Walton MD, MD Date Time Electronically viewed and signed by .Keegan Walton MD, MD on 07/20/2016 10:50 .L/
--- NOTE | 2016-07-20 13:01 | CONS ---
Date/Time of Note Date/Time of Note DATE: 07/20/16 TIME: 12:53 Assessment/Plan Assessment/Plan Chief Complaint/Hosp Course - leukocytosis, possible early sepsis - infection of wounds of b/l heel due to MRSA, XR showed no bony abnormalities - unstageable decub of b/l heel - C diff colitis - s/p possible HCAP, Pt completed empiric cefepime (07/10/2016-07/19/2016); CXR on 07/20/2016 showed improvement. 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 Given by IV because Pt's often confused and PO intake can be affected. Will monitor CBC while Pt's on linezolid - continue PO vancomycin (02/14/2017-) while Pt's on antibiotics management d/w Pt's RN Problems: Consultation Date/Type/Reason Admit Date/Time July 09, 2016 at 12:24 Initial Consult Date 07/11/16 Type of Consultation: ID Referring Provider: RONNIE PATEL MD 24 HR Interval Summary Subjective hx not possible: pt non-verbal Exam/Review of Systems Vital Signs Vitals Vital Signs Date Time Temp Pulse Resp B/P Pulse Ox O2 Delivery O2 Flow Rate FiO2 07/20/16 11:29 Nasal Cannula 2.0 07/20/16 08:21 98.2 80 16 177/80 94 Intake and Output 07/19/16 07/19/16 07/20/16 15:00 23:00 07:00 Intake Total 350 ml 1740 ml 1020 ml Output Total 550 ml 850 ml Balance 350 ml 1190 ml 170 ml Exam Constitutional: non-verbal Psych: confusion Head: atraumatic, normocephalic Eyes: nl conjunctiva, nl lids ENMT: nl external ears & nose, nl nasal mucosa & septum Neck: supple Respiratory: diminished breath sounds Cardiovascular: other (could not examine because he blocked chest/abd with his arms) Gastrointestinal: other (could not examine because he blocked chest/abd with his arms) Musculoskeletal: other (b/l heel wound is dressed) Extremities: No edema Neurological: confused Skin: rash or lesions (decubitus ulcers of b/l heels) Results Result Diagram: 07/20/16 0505 07/20/16 0505 Results 24 hrs Laboratory Tests Test 07/20/16 05:05 White Blood Count 17.7 #H Red Blood Count 2.87 L Hemoglobin 8.7 L Hematocrit 25.3 L Mean Corpuscular Volume 88.2 Mean Corpuscular Hemoglobin 30.3 Mean Corpuscular Hemoglobin Concent 34.4 Red Cell Distribution Width 13.2 Platelet Count 302 Mean Platelet Volume 9.8 Neutrophils % 79.7 H Lymphocytes % 9.9 L Monocytes % 7.3 Eosinophils % 2.1 Basophils % 0.1 Nucleated Red Blood Cells % 0.0 Neutrophils # 14.1 H Lymphocytes # 1.8 Monocytes # 1.3 H Eosinophils # 0.4 Basophils # 0.0 Nucleated Red Blood Cells # 0.0 Sodium Level 137 Potassium Level 3.6 Chloride Level 112 H Carbon Dioxide Level 19 L Anion Gap 10 Blood Urea Nitrogen 64 H Creatinine 3.17 H Glucose Level 93 Calcium Level 7.1 L Medications Medications Current Medications Acetaminophen (Tylenol Tab) 500 mg Q6H PRN PO PAIN AND OR ELEVATED TEMP; Start 07/09/16 at 20:30 Ondansetron HCl (Zofran Inj) 4 mg Q6H PRN IV NAUSEA AND/OR VOMITING; Start at 20:30 Aspirin (Aspirin) 81 mg DAILY PO Last administered on 07/20/16 09:35; Admin Dose 81 MG; Start 07/10/16 at 09:00 Benztropine Mesylate (Cogentin) 1 mg BID PO Last administered on 07/20/16 09:34 ; Admin Dose 1 MG; Start 07/09/16 at 21:00 Finasteride (Proscar) 5 mg DAILY PO Last administered on 07/20/16 09:35; Admin Dose 5 MG; Start 07/10/16 at 09:00 Acetaminophen/ Hydrocodone Bitart ([place] (5/325)) 1 tab Q4 PRN PO SEVERE PAIN LEVEL 7-10 Last administered on 07/15/16 16:21; Admin Dose 1 TAB; Start at 20:30 Latanoprost (Xalatan) 1 drop QHS BOTH EYES Last administered on 07/19/16 22:27 ; Admin Dose 1 DROP; Start 07/09/16 at 21:00 Multivitamins Therapeutic (Theragran) 1 tab DAILY PO Last administered on 09:35; Admin Dose 1 TAB; Start 07/10/16 at 09:00 Olanzapine (Zyprexa) 5 mg QHS PO Last administered on 07/19/16 22:26; Admin Dose 5 MG; Start 07/09/16 at 21:00 Zinc Sulfate (Zinc Sulfate) 220 mg DAILY PO Last administered on 07/20/16 09:35 ; Admin Dose 220 MG; Start 07/10/16 at 09:00 Acetaminophen (Tylenol Supp) 650 mg Q6H PRN [place] ELEVATED TEMPERATURE Last administered on 07/10/16 09:51; Admin Dose 650 MG; Start 07/10/16 at 09:30 Collagenase (Santyl) 1 applic DAILY TOP Last administered on 07/20/16 09:36; Admin Dose 1 APPLIC; Start 07/10/16 at 14:00 Bisacodyl (Dulcolax) 10 mg BID PO Last administered on 07/18/16 10:03; Admin Dose 10 MG; Start 07/13/16 at 15:00 Benazepril HCl (Lotensin) 20 mg DAILY PO Last administered on 07/20/16 09:35; Admin Dose 20 MG; Start 07/16/16 at 09:00 Lorazepam (Ativan) 0.5 mg Q6H PRN IV ANXIETY Last administered on 07/18/16 09: 58; Admin Dose 0.5 MG; Start 07/16/16 at 23:30 Zolpidem Tartrate (Ambien) 2.5 mg HS PRN PO INSOMNIA; Start 07/17/16 at 19:00 Epoetin Zana (Epogen (Esrd)) 6,000 units TuThSa@17 SC Last administered on 18:06; Admin Dose 6,000 UNITS; Start 07/17/16 at 20:00 Miscellaneous Information This patient ellis... PRN PRN XX WOUND CARE; Start at 07:00 Linezolid (Zyvox 600mg/D5W (Pmx)) 300 ml @ 300 mls/hr Q12 IVPB Last administered on 07/20/16 09:34; Admin Dose 300 MLS/HR; Start 07/18/16 at 11:00 Lorazepam 0.5 mg 0.5 mg Q6H PRN PO ANXEITY Last administered on 07/19/16 22:28 ; Admin Dose 0.5 MG; Start 07/18/16 at 16:00 Potassium Chloride/Dextrose (D5W + KCl 20 Meq) 1,000 ml @ 80 mls/hr [id number] IV Last administered on 07/20/16 09:36; Admin Dose 80 MLS/HR; Start 07/18/16 at 16 :30 Clonidine (Catapres) 0.1 mg TID PO Last administered on 07/20/16 09:35; Admin Dose 0.1 MG; Start 07/19/16 at 09:00 Nifedipine (Procardia Xl) 30 mg QHS PO ; Start 07/20/16 at 21:00 JERO GALAN M.D. Jul 20, 2016 13:01
[2016-07-20 13:23] LABS: ADD UMIC YES; UR BILIRUBIN (Dip) NEGATIVE (NEGATIVE); UR BLOOD (Dip) 3+ (NEGATIVE); UR CLARITY CLEAR (CLEAR); UR COLOR LT. YELLOW (YELLOW); UR GLUCOSE (Dip) NEGATIVE (NEGATIVE); UR KETONES (Dip) NEGATIVE (NEGATIVE); UR LEUKOCYTE ESTERASE (Dip) TRACE (NEGATIVE); UR NITRITE (Dip) NEGATIVE (NEGATIVE); UR TOTAL PROTEIN (Dip) 2+ (NEGATIVE); UR UROBILINOGEN (Dip) 0.2 E.U./dL (0.1-1.0)
[2016-07-20 13:37] LABS: UR BACTERIA MODERATE
[2016-07-20 13:38] LABS: UR SQUAMOUS EPITHELIAL CELL MODERATE; URINE RBCS >50 /HPF (0)
[2016-07-20 14:00] LABS: SCRET 3.17 mg/dl (0.61-1.24)
--- NOTE | 2016-07-20 15:08 | PN ---
Date/Time of Note Date/Time of Note DATE: 07/20/16 TIME: 15:08 Assessment/Plan VTE Prophylaxis VTE Prophylaxis Intervention: other Lines/Catheters IV C[facility]ter Type (from [facility]): Peripheral IV Urinary Cath still in place: Yes Reason Cath still needed: urinary retention Assessment/Plan Assessment/Plan - C. difficile colitis. Continue antibiotics per ID. - Status post colonoscopy with notion of colitis ulcers. Continue to follow-up gastroenterology recommendations. - Infected wounds on bilateral lower extremities. Continue antibiotics per ID. Dr. Patricio is following in ID consultation. - Acute kidney injury, etiology unknown. Dr. Srinivasan is following in nephrology consultation. - Acute metabolic encephalopathy, resolving. - Hypertension. - Chronic obstructive pulmonary disease. - Benign prostatic hypertrophy. Continue Flomax. - Loculated pleural effusion. Continue to monitor chest x-ray. - Multiple decubitus ulcers. Continue current wound care - Acute cerebrovascular accident. Continue aspirin. - Dyslipidemia. Continue Lipitor. - Dementia with behavioral disturbance. Continue Zyprexa. Further recommendations based on clinical course. Plan of care discussed with Dr. Rene. Subjective 24 Hr Interval Summary Free Text/Dictation alert, afebrile, comfortable on supplement oxygen, K wnl, DW staff Respiratory: no complaints Cardiovascular: no complaints Gastrointestinal: no complaints Genitourinary: no complaints Exam/Review of Systems Vital Signs Vitals Vital Signs Date Time Temp Pulse Resp B/P Pulse Ox O2 Delivery O2 Flow Rate FiO2 07/20/16 11:29 Nasal Cannula 2.0 07/20/16 08:21 98.2 80 16 177/80 94 Intake and Output 07/19/16 07/19/16 07/20/16 15:00 23:00 07:00 Intake Total 350 ml 1740 ml 1020 ml Output Total 550 ml 850 ml Balance 350 ml 1190 ml 170 ml Exam Constitutional: alert, well developed Respiratory: clear to auscultation, normal air movement Cardiovascular: nl pulses, regular rate and rhythm Gastrointestinal: non-tender, soft Extremities: normal pulses Neurological: other Results Result Diagram: 07/20/16 0505 07/20/16 0505 Results 24 hrs Laboratory Tests Test 07/20/16 05:05 07/20/16 13:00 White Blood Count 17.7 #H Red Blood Count 2.87 L Hemoglobin 8.7 L Hematocrit 25.3 L Mean Corpuscular Volume 88.2 Mean Corpuscular Hemoglobin 30.3 Mean Corpuscular Hemoglobin Concent 34.4 Red Cell Distribution Width 13.2 Platelet Count 302 Mean Platelet Volume 9.8 Neutrophils % 79.7 H Lymphocytes % 9.9 L Monocytes % 7.3 Eosinophils % 2.1 Basophils % 0.1 Nucleated Red Blood Cells % 0.0 Neutrophils # 14.1 H Lymphocytes # 1.8 Monocytes # 1.3 H Eosinophils # 0.4 Basophils # 0.0 Nucleated Red Blood Cells # 0.0 Sodium Level 137 Potassium Level 3.6 Chloride Level 112 H Carbon Dioxide Level 19 L Anion Gap 10 Blood Urea Nitrogen 64 H Creatinine 3.17 H Glucose Level 93 Calcium Level 7.1 L Urine Color LT. YELLOW Urine Clarity CLEAR Urine pH 5.0 Urine Specific [place] <=1.005 L Urine Ketones NEGATIVE Urine Nitrite NEGATIVE Urine Bilirubin NEGATIVE Urine Urobilinogen 0.2 E.U./dL Urine Leukocyte Esterase TRACE H Urine Microscopic RBC >50 Urine Microscopic WBC 5-10 Urine Squamous Epithelial Cells MODERATE Urine Bacteria MODERATE Urine Hyaline Casts FEW Urine Red Blood Cell Casts OCCASIONAL Urine Hemoglobin 3+ H Urine Random Creatinine 53.61 Urine Total Volume 24 Hours 1900 Urine Creatinine Timed 24 Creatinine Clearance 22.3 L Urine Glucose NEGATIVE Urine Total Protein 2+ H Medications Medications Current Medications Acetaminophen (Tylenol Tab) 500 mg Q6H PRN PO PAIN AND OR ELEVATED TEMP; Start 07/09/16 at 20:30 Ondansetron HCl (Zofran Inj) 4 mg Q6H PRN IV NAUSEA AND/OR VOMITING; Start at 20:30 Aspirin (Aspirin) 81 mg DAILY PO Last administered on 07/20/16 09:35; Admin Dose 81 MG; Start 07/10/16 at 09:00 Benztropine Mesylate (Cogentin) 1 mg BID PO Last administered on 07/20/16 09:34 ; Admin Dose 1 MG; Start 07/09/16 at 21:00 Finasteride (Proscar) 5 mg DAILY PO Last administered on 07/20/16 09:35; Admin Dose 5 MG; Start 07/10/16 at 09:00 Acetaminophen/ Hydrocodone Bitart ([place] (5/325)) 1 tab Q4 PRN PO SEVERE PAIN LEVEL 7-10 Last administered on 07/15/16 16:21; Admin Dose 1 TAB; Start at 20:30 Latanoprost (Xalatan) 1 drop QHS BOTH EYES Last administered on 07/19/16 22:27 ; Admin Dose 1 DROP; Start 07/09/16 at 21:00 Multivitamins Therapeutic (Theragran) 1 tab DAILY PO Last administered on 09:35; Admin Dose 1 TAB; Start 07/10/16 at 09:00 Olanzapine (Zyprexa) 5 mg QHS PO Last administered on 07/19/16 22:26; Admin Dose 5 MG; Start 07/09/16 at 21:00 Zinc Sulfate (Zinc Sulfate) 220 mg DAILY PO Last administered on 07/20/16 09:35 ; Admin Dose 220 MG; Start 07/10/16 at 09:00 Acetaminophen (Tylenol Supp) 650 mg Q6H PRN [place] ELEVATED TEMPERATURE Last administered on 07/10/16 09:51; Admin Dose 650 MG; Start 07/10/16 at 09:30 Collagenase (Santyl) 1 applic DAILY TOP Last administered on 07/20/16 09:36; Admin Dose 1 APPLIC; Start 07/10/16 at 14:00 Bisacodyl (Dulcolax) 10 mg BID PO Last administered on 07/18/16 10:03; Admin Dose 10 MG; Start 07/13/16 at 15:00 Benazepril HCl (Lotensin) 20 mg DAILY PO Last administered on 07/20/16 09:35; Admin Dose 20 MG; Start 07/16/16 at 09:00 Lorazepam (Ativan) 0.5 mg Q6H PRN IV ANXIETY Last administered on 07/18/16 09: 58; Admin Dose 0.5 MG; Start 07/16/16 at 23:30 Zolpidem Tartrate (Ambien) 2.5 mg HS PRN PO INSOMNIA; Start 07/17/16 at 19:00 Epoetin Zana (Epogen (Esrd)) 6,000 units TuThSa@17 SC Last administered on 18:06; Admin Dose 6,000 UNITS; Start 07/17/16 at 20:00 Miscellaneous Information This patient ellis... PRN PRN XX WOUND CARE; Start at 07:00 Linezolid (Zyvox 600mg/D5W (Pmx)) 300 ml @ 300 mls/hr Q12 IVPB Last administered on 07/20/16 09:34; Admin Dose 300 MLS/HR; Start 07/18/16 at 11:00 Lorazepam 0.5 mg 0.5 mg Q6H PRN PO ANXEITY Last administered on 07/19/16 22:28 ; Admin Dose 0.5 MG; Start 07/18/16 at 16:00 Potassium Chloride/Dextrose (D5W + KCl 20 Meq) 1,000 ml @ 80 mls/hr [id number] IV Last administered on 07/20/16 09:36; Admin Dose 80 MLS/HR; Start 07/18/16 at 16 :30 Clonidine (Catapres) 0.1 mg TID PO Last administered on 07/20/16 12:59; Admin Dose 0.1 MG; Start 07/19/16 at 09:00 Nifedipine (Procardia Xl) 30 mg QHS PO ; Start 07/20/16 at 21:00 ISAEL CRYSTAL Jul 20, 2016 15:08
--- NOTE | 2016-07-20 20:04 | CONS ---
Date/Time of Note Date/Time of Note DATE: 07/20/16 TIME: 19:59 Assessment/Plan Assessment/Plan Chief Complaint/Hosp Course Pt needs close f/u lab in AM Problems: Additional Assessment/Plan CXR has improved thpo WBC remains high Cont'd Hospitalization Reason: Renal fn, I/O stable; WBC has risen? Await ID Plans Consultation Date/Type/Reason Admit Date/Time July 09, 2016 at 12:24 Initial Consult Date 07/11/16 Type of Consultation: renal Referring Provider: RONNIE PATEL MD 24 HR Interval Summary Free Text/Dictation remains more alert Exam/Review of Systems Vital Signs Vitals Vital Signs Date Time Temp Pulse Resp B/P Pulse Ox O2 Delivery O2 Flow Rate FiO2 07/20/16 16:21 2.0 07/20/16 11:29 Nasal Cannula 07/20/16 08:21 98.2 80 16 177/80 94 Intake and Output 07/19/16 07/19/16 07/20/16 15:00 23:00 07:00 Intake Total 350 ml 1740 ml 1020 ml Output Total 550 ml 850 ml Balance 350 ml 1190 ml 170 ml Exam Mostly confined to bed Constitutional: alert, well developed Psych: confusion, nl mood/affect, no complaints Head: atraumatic, normocephalic Eyes: EOMI, PERRL, nl conjunctiva, nl lids, nl sclera ENMT: nl external ears & nose, nl lips & teeth, nl nasal mucosa & septum Neck: non-tender, supple Respiratory: clear to auscultation, normal air movement Cardiovascular: nl pulses, regular rate and rhythm Gastrointestinal: nl liver, spleen, non-tender, soft Musculoskeletal: nl extremities to inspection, nl gait and stance Extremities: normal pulses, other (muscle wasting) 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 II-XII 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, nl mental status, nl speech, nl strength Skin: nl turgor, No rash or lesions Lymph: nl lymph nodes Results Result Diagram: 07/20/16 0505 07/20/16 0505 Results 24 hrs Laboratory Tests Test 07/20/16 05:05 07/20/16 13:00 White Blood Count 17.7 #H Red Blood Count 2.87 L Hemoglobin 8.7 L Hematocrit 25.3 L Mean Corpuscular Volume 88.2 Mean Corpuscular Hemoglobin 30.3 Mean Corpuscular Hemoglobin Concent 34.4 Red Cell Distribution Width 13.2 Platelet Count 302 Mean Platelet Volume 9.8 Neutrophils % 79.7 H Lymphocytes % 9.9 L Monocytes % 7.3 Eosinophils % 2.1 Basophils % 0.1 Nucleated Red Blood Cells % 0.0 Neutrophils # 14.1 H Lymphocytes # 1.8 Monocytes # 1.3 H Eosinophils # 0.4 Basophils # 0.0 Nucleated Red Blood Cells # 0.0 Sodium Level 137 Potassium Level 3.6 Chloride Level 112 H Carbon Dioxide Level 19 L Anion Gap 10 Blood Urea Nitrogen 64 H Creatinine 3.17 H Glucose Level 93 Calcium Level 7.1 L Urine Color LT. YELLOW Urine Clarity CLEAR Urine pH 5.0 Urine Specific [place] <=1.005 L Urine Ketones NEGATIVE Urine Nitrite NEGATIVE Urine Bilirubin NEGATIVE Urine Urobilinogen 0.2 E.U./dL Urine Leukocyte Esterase TRACE H Urine Microscopic RBC >50 Urine Microscopic WBC 5-10 Urine Squamous Epithelial Cells MODERATE Urine Bacteria MODERATE Urine Hyaline Casts FEW Urine Red Blood Cell Casts OCCASIONAL Urine Hemoglobin 3+ H Urine Random Creatinine 53.61 Urine Total Volume 24 Hours 1900 Urine Creatinine Timed 24 Creatinine Clearance 22.3 L Urine Glucose NEGATIVE Urine Total Protein 2+ H Medications Medications Current Medications Acetaminophen (Tylenol Tab) 500 mg Q6H PRN PO PAIN AND OR ELEVATED TEMP; Start 07/09/16 at 20:30 Ondansetron HCl (Zofran Inj) 4 mg Q6H PRN IV NAUSEA AND/OR VOMITING; Start at 20:30 Aspirin (Aspirin) 81 mg DAILY PO Last administered on 07/20/16 09:35; Admin Dose 81 MG; Start 07/10/16 at 09:00 Benztropine Mesylate (Cogentin) 1 mg BID PO Last administered on 07/20/16 09:34 ; Admin Dose 1 MG; Start 07/09/16 at 21:00 Finasteride (Proscar) 5 mg DAILY PO Last administered on 07/20/16 09:35; Admin Dose 5 MG; Start 07/10/16 at 09:00 Acetaminophen/ Hydrocodone Bitart ([place] (5/325)) 1 tab Q4 PRN PO SEVERE PAIN LEVEL 7-10 Last administered on 07/15/16 16:21; Admin Dose 1 TAB; Start at 20:30 Latanoprost (Xalatan) 1 drop QHS BOTH EYES Last administered on 07/19/16 22:27 ; Admin Dose 1 DROP; Start 07/09/16 at 21:00 Multivitamins Therapeutic (Theragran) 1 tab DAILY PO Last administered on 09:35; Admin Dose 1 TAB; Start 07/10/16 at 09:00 Olanzapine (Zyprexa) 5 mg QHS PO Last administered on 07/19/16 22:26; Admin Dose 5 MG; Start 07/09/16 at 21:00 Zinc Sulfate (Zinc Sulfate) 220 mg DAILY PO Last administered on 07/20/16 09:35 ; Admin Dose 220 MG; Start 07/10/16 at 09:00 Acetaminophen (Tylenol Supp) 650 mg Q6H PRN OR ELEVATED TEMPERATURE Last administered on 07/10/16 09:51; Admin Dose 650 MG; Start 07/10/16 at 09:30 Collagenase (Santyl) 1 applic DAILY TOP Last administered on 07/20/16 09:36; Admin Dose 1 APPLIC; Start 07/10/16 at 14:00 Bisacodyl (Dulcolax) 10 mg BID PO Last administered on 07/18/16 10:03; Admin Dose 10 MG; Start 07/13/16 at 15:00 Benazepril HCl (Lotensin) 20 mg DAILY PO Last administered on 07/20/16 09:35; Admin Dose 20 MG; Start 07/16/16 at 09:00 Lorazepam (Ativan) 0.5 mg Q6H PRN IV ANXIETY Last administered on 07/18/16 09: 58; Admin Dose 0.5 MG; Start 07/16/16 at 23:30 Zolpidem Tartrate (Ambien) 2.5 mg HS PRN PO INSOMNIA; Start 07/17/16 at 19:00 Epoetin Zana (Epogen (Esrd)) 6,000 units TuThSa@17 SC Last administered on 18:06; Admin Dose 6,000 UNITS; Start 07/17/16 at 20:00 Miscellaneous Information This patient ellis... PRN PRN XX WOUND CARE; Start at 07:00 Linezolid (Zyvox 600mg/D5W (Pmx)) 300 ml @ 300 mls/hr Q12 IVPB Last administered on 07/20/16 09:34; Admin Dose 300 MLS/HR; Start 07/18/16 at 11:00 Lorazepam 0.5 mg 0.5 mg Q6H PRN PO ANXEITY Last administered on 07/19/16 22:28 ; Admin Dose 0.5 MG; Start 07/18/16 at 16:00 Potassium Chloride/Dextrose (D5W + KCl 20 Meq) 1,000 ml @ 80 mls/hr [id number] IV Last administered on 07/20/16 09:36; Admin Dose 80 MLS/HR; Start 07/18/16 at 16 :30 Clonidine (Catapres) 0.1 mg TID PO Last administered on 07/20/16 12:59; Admin Dose 0.1 MG; Start 07/19/16 at 09:00 Nifedipine (Procardia Xl) 30 mg QHS PO ; Start 07/20/16 at 21:00 JUANA AYALA MD Jul 20, 2016 20:03
[2016-07-20 20:08] VITALS: BP 137/87; RESP 20
[2016-07-20] MEDS: NIFEdipine (XL) 30 MG TAB PO SCH (20:15)
[2016-07-20] MEDS: OLANZAPINE 5 MG TAB PO SCH (20:49)
[2016-07-20] MEDS: LATANOPROST 0.005% 2.5 ML OPH BOTH EYES SCH (20:53)
[2016-07-21] MEDS: D5W + KCL 20 MEQ 1,000 ML IV SCH ×3 (05:08→23:39)
[2016-07-21 05:35] LABS: ADD SCAN DIFF NO; BASOPHILS % 0.1 % (0.0-2.0); EOSINOPHILS # 0.6 10^3/ul (0.0-0.5); EOSINOPHILS % 2.5 % (0.0-7.0); HEMATOCRIT 25.5 % (42.0-52.0); HEMOGLOBIN 8.4 g/dl (14.0-18.0); LYMPHOCYTES # 1.6 10^3/ul (0.8-2.9); LYMPHOCYTES % 6.8 % (15.0-51.0); MEAN CORPUSCULAR HEMOGLOBIN 29.3 pg (29.0-33.0); MEAN CORPUSCULAR HGB CONC 32.9 g/dl (32.0-37.0); MEAN CORPUSCULAR VOLUME 88.9 fl (82.0-101.0); MEAN PLATELET VOLUME 9.5 fl (7.4-10.4); MONOCYTE # 1.4 10^3/ul (0.3-0.9); MONOCYTES % 6.2 % (0.0-11.0); NEUTROPHIL # 19.1 10^3/ul (1.6-7.5); NEUTROPHILS % 83.5 % (39.0-77.0); PLATELET COUNT 291 10^3/UL (140-415); RED BLOOD COUNT 2.87 10^6/ul (4.70-6.10); RED CELL DISTRIBUTION WIDTH 13.5 % (11.5-14.5); WHITE BLOOD COUNT 22.9 10^3/ul (4.8-10.8)
[2016-07-21 05:54] LABS: CALCIUM 7.2 mg/dl (8.4-10.2); CREATININE 3.12 mg/dl (0.61-1.24); POTASSIUM 3.8 mmol/L (3.5-5.1)
[2016-07-21 08:18] VITALS: BP 162/79; RESP 18
[2016-07-21] MEDS: COLLAGENASE 30 GM TUBE TOP SCH (09:00)
[2016-07-21 09:27] VITALS: BP 154/76; PULSE 64; PULSE 66
[2016-07-21] MEDS: CALCIUM CARBONATE 750 MG CHEW TAB PO SCH ×3 (09:29→17:51)
[2016-07-21] MEDS: FINASTERIDE 5 MG TAB PO SCH (09:29)
[2016-07-21] MEDS: ASPIRIN 81 MG TAB PO SCH (09:29)
[2016-07-21] MEDS: MULTIVITAMINS THERAPEUTIC TAB PO SCH (09:29)
[2016-07-21] MEDS: PANTOPRAZOLE (EC) 40 MG TAB PO SCH (09:29)
[2016-07-21] MEDS: BENAZEPRIL 20 MG TAB PO SCH (09:29)
[2016-07-21] MEDS: ZINC SULFATE 220 MG CAP PO SCH (09:29)
[2016-07-21] MEDS: BISACODYL (EC) 5 MG TAB PO SCH ×2 (09:30→20:51)
[2016-07-21] MEDS: BENZTROPINE 1 MG TAB PO SCH ×2 (09:46→20:50)
[2016-07-21] MEDS: LINEZOLID 600 MG/D5W (PMX) 300 ML IVPB SCH ×2 (09:48→20:41)
[2016-07-21 13:06] VITALS: BP 121/62; PULSE 60
--- NOTE | 2016-07-21 14:51 | CONS ---
Date/Time of Note Date/Time of Note DATE: 07/21/16 TIME: 14:49 Assessment/Plan Assessment/Plan Chief Complaint/Hosp Course 1. Acute kidney injury, Pre- Renal R/o ATN, Avila no signs of obstructive Uropathy, Hx of BPH.- Non Oliguric 2. Hypertension. Normotensive at this time. 3. Chronic obstructive pulmonary disease. 4. Benign prostatic hypertrophy. 5. Loculated pleural effusion. 6. Multiple decubiti 7. Cerebrovascular accident. 8. Dyslipidemia. 9. Dementia with behavioral disturbance. 10. Metabolic Acidosis-stable Renal function is stable Pt is non oliguric, K and Na wnl Cont current Rx and plan BP better controlled today No acute indication for HD at this time Problems: Consultation Date/Type/Reason Admit Date/Time July 09, 2016 at 12:24 Type of Consultation: renal Referring Provider: RONNIE PATEL MD Exam/Review of Systems Vital Signs Vitals Vital Signs Date Time Temp Pulse Resp B/P Pulse Ox O2 Delivery O2 Flow Rate FiO2 07/21/16 13:06 60 121/62 07/21/16 08:18 98.7 18 96 07/20/16 20:30 Nasal Cannula 2.0 Intake and Output 07/20/16 07/20/16 07/21/16 15:00 23:00 07:00 Intake Total 700 ml 1660 ml 600 ml Output Total 1150 ml 1000 ml Balance 700 ml 510 ml -400 ml Results Result Diagram: 07/21/16 0510 07/21/16 0510 Results 24 hrs Laboratory Tests Test 07/21/16 05:10 White Blood Count 22.9 #H Red Blood Count 2.87 L Hemoglobin 8.4 L Hematocrit 25.5 L Mean Corpuscular Volume 88.9 Mean Corpuscular Hemoglobin 29.3 Mean Corpuscular Hemoglobin Concent 32.9 Red Cell Distribution Width 13.5 Platelet Count 291 Mean Platelet Volume 9.5 Neutrophils % 83.5 H Lymphocytes % 6.8 L Monocytes % 6.2 Eosinophils % 2.5 Basophils % 0.1 Nucleated Red Blood Cells % 0.0 Neutrophils # 19.1 H Lymphocytes # 1.6 Monocytes # 1.4 H Eosinophils # 0.6 H Basophils # 0.0 Nucleated Red Blood Cells # 0.0 Sodium Level 137 Potassium Level 3.8 Chloride Level 114 H Carbon Dioxide Level 18 L Anion Gap 9 Blood Urea Nitrogen 57 H Creatinine 3.12 H Glucose Level 102 Calcium Level 7.2 L Medications Medications Current Medications Acetaminophen (Tylenol Tab) 500 mg Q6H PRN PO PAIN AND OR ELEVATED TEMP; Start 07/09/16 at 20:30 Ondansetron HCl (Zofran Inj) 4 mg Q6H PRN IV NAUSEA AND/OR VOMITING; Start at 20:30 Aspirin (Aspirin) 81 mg DAILY PO Last administered on 07/21/16 09:29; Admin Dose 81 MG; Start 07/10/16 at 09:00 Benztropine Mesylate (Cogentin) 1 mg BID PO Last administered on 07/21/16 09:46 ; Admin Dose 1 MG; Start 07/09/16 at 21:00 Finasteride (Proscar) 5 mg DAILY PO Last administered on 07/21/16 09:29; Admin Dose 5 MG; Start 07/10/16 at 09:00 Acetaminophen/ Hydrocodone Bitart ([place] (5/325)) 1 tab Q4 PRN PO SEVERE PAIN LEVEL 7-10 Last administered on 07/15/16 16:21; Admin Dose 1 TAB; Start at 20:30 Latanoprost (Xalatan) 1 drop QHS BOTH EYES Last administered on 07/19/16 22:27 ; Admin Dose 1 DROP; Start 07/09/16 at 21:00 Multivitamins Therapeutic (Theragran) 1 tab DAILY PO Last administered on 09:29; Admin Dose 1 TAB; Start 07/10/16 at 09:00 Olanzapine (Zyprexa) 5 mg QHS PO Last administered on 07/20/16 20:49; Admin Dose 5 MG; Start 07/09/16 at 21:00 Zinc Sulfate (Zinc Sulfate) 220 mg DAILY PO Last administered on 07/21/16 09:29 ; Admin Dose 220 MG; Start 07/10/16 at 09:00 Acetaminophen (Tylenol Supp) 650 mg Q6H PRN [place] ELEVATED TEMPERATURE Last administered on 07/10/16 09:51; Admin Dose 650 MG; Start 07/10/16 at 09:30 Collagenase (Santyl) 1 applic DAILY TOP Last administered on 07/20/16 09:36; Admin Dose 1 APPLIC; Start 07/10/16 at 14:00 Bisacodyl (Dulcolax) 10 mg BID PO Last administered on 07/21/16 09:30; Admin Dose 10 MG; Start 07/13/16 at 15:00 Benazepril HCl (Lotensin) 20 mg DAILY PO Last administered on 07/21/16 09:29; Admin Dose 20 MG; Start 07/16/16 at 09:00 Lorazepam (Ativan) 0.5 mg Q6H PRN IV ANXIETY Last administered on 07/18/16 09: 58; Admin Dose 0.5 MG; Start 07/16/16 at 23:30 Zolpidem Tartrate (Ambien) 2.5 mg HS PRN PO INSOMNIA; Start 07/17/16 at 19:00 Epoetin Zana (Epogen (Esrd)) 6,000 units TuThSa@17 SC Last administered on 18:06; Admin Dose 6,000 UNITS; Start 07/17/16 at 20:00 Miscellaneous Information This patient ellis... PRN PRN XX WOUND CARE; Start at 07:00 Linezolid (Zyvox 600mg/D5W (Pmx)) 300 ml @ 300 mls/hr Q12 IVPB Last administered on 07/21/16 09:48; Admin Dose 300 MLS/HR; Start 07/18/16 at 11:00 Lorazepam 0.5 mg 0.5 mg Q6H PRN PO ANXEITY Last administered on 07/19/16 22:28 ; Admin Dose 0.5 MG; Start 07/18/16 at 16:00 Potassium Chloride/Dextrose (D5W + KCl 20 Meq) 1,000 ml @ 80 mls/hr [id number] IV Last administered on 07/21/16 05:08; Admin Dose 80 MLS/HR; Start 07/18/16 at 16 :30 Clonidine (Catapres) 0.1 mg TID PO Last administered on 07/21/16 13:05; Admin Dose 0.1 MG; Start 07/19/16 at 09:00 Nifedipine (Procardia Xl) 30 mg QHS PO ; Start 07/20/16 at 21:00 Procedures Procedures PROCEDURE: XR Chest. CLINICAL INDICATION: Pneumonia TECHNIQUE: Single frontal chest x-ray. COMPARISON: 07/17/2016 FINDINGS: Bilateral basilar consolidations and infiltrates are improved. Small bilateral pleural effusions are decreased. . There are no new infiltrates identified.. Mild cardiomegaly is unchanged.. The osseous structures are intact. IMPRESSION: Decreased bilateral lower lung consolidations and small effusions.. RPTAT: QQ .Keegan Walton MD, MD Date Time Electronically viewed and signed by .Keegan Walton MD, MD on 07/20/2016 10:50 TACOS GREEN MD Jul 21, 2016 14:51
--- NOTE | 2016-07-21 18:40 | CONS ---
Date/Time of Note Date/Time of Note DATE: 07/21/16 TIME: 18:38 Assessment/Plan Assessment/Plan Chief Complaint/Hosp Course - leukocytosis, possible early sepsis - infection of wounds of b/l heel due to MRSA, XR showed no bony abnormalities - unstageable decub of b/l heel - C diff colitis - s/p possible HCAP, Pt completed empiric cefepime (07/10/2016-07/19/2016); CXR on 07/20/2016 showed improvement. 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 Given by IV because Pt's often confused and PO intake can be affected. Will monitor CBC while Pt's on linezolid - continue PO vancomycin (02/14/2017-) while Pt's on antibiotics Problems: Consultation Date/Type/Reason Admit Date/Time July 09, 2016 at 12:24 Type of Consultation: id Referring Provider: RONNIE PATEL MD Exam/Review of Systems Vital Signs Vitals Vital Signs Date Time Temp Pulse Resp B/P Pulse Ox O2 Delivery O2 Flow Rate FiO2 07/21/16 16:57 2.0 07/21/16 13:06 60 121/62 07/21/16 08:45 Nasal Cannula 07/21/16 08:18 98.7 18 96 Intake and Output 07/20/16 07/20/16 07/21/16 15:00 23:00 07:00 Intake Total 700 ml 1660 ml 600 ml Output Total 1150 ml 1000 ml Balance 700 ml 510 ml -400 ml Results Result Diagram: 07/21/16 0510 07/21/16 0510 Results 24 hrs Laboratory Tests Test 07/21/16 05:10 White Blood Count 22.9 #H Red Blood Count 2.87 L Hemoglobin 8.4 L Hematocrit 25.5 L Mean Corpuscular Volume 88.9 Mean Corpuscular Hemoglobin 29.3 Mean Corpuscular Hemoglobin Concent 32.9 Red Cell Distribution Width 13.5 Platelet Count 291 Mean Platelet Volume 9.5 Neutrophils % 83.5 H Lymphocytes % 6.8 L Monocytes % 6.2 Eosinophils % 2.5 Basophils % 0.1 Nucleated Red Blood Cells % 0.0 Neutrophils # 19.1 H Lymphocytes # 1.6 Monocytes # 1.4 H Eosinophils # 0.6 H Basophils # 0.0 Nucleated Red Blood Cells # 0.0 Sodium Level 137 Potassium Level 3.8 Chloride Level 114 H Carbon Dioxide Level 18 L Anion Gap 9 Blood Urea Nitrogen 57 H Creatinine 3.12 H Glucose Level 102 Calcium Level 7.2 L Medications Medications Current Medications Acetaminophen (Tylenol Tab) 500 mg Q6H PRN PO PAIN AND OR ELEVATED TEMP; Start 07/09/16 at 20:30 Ondansetron HCl (Zofran Inj) 4 mg Q6H PRN IV NAUSEA AND/OR VOMITING; Start at 20:30 Aspirin (Aspirin) 81 mg DAILY PO Last administered on 07/21/16 09:29; Admin Dose 81 MG; Start 07/10/16 at 09:00 Benztropine Mesylate (Cogentin) 1 mg BID PO Last administered on 07/21/16 09:46 ; Admin Dose 1 MG; Start 07/09/16 at 21:00 Finasteride (Proscar) 5 mg DAILY PO Last administered on 07/21/16 09:29; Admin Dose 5 MG; Start 07/10/16 at 09:00 Acetaminophen/ Hydrocodone Bitart ([place] (5/325)) 1 tab Q4 PRN PO SEVERE PAIN LEVEL 7-10 Last administered on 07/15/16 16:21; Admin Dose 1 TAB; Start at 20:30 Latanoprost (Xalatan) 1 drop QHS BOTH EYES Last administered on 07/19/16 22:27 ; Admin Dose 1 DROP; Start 07/09/16 at 21:00 Multivitamins Therapeutic (Theragran) 1 tab DAILY PO Last administered on 09:29; Admin Dose 1 TAB; Start 07/10/16 at 09:00 Olanzapine (Zyprexa) 5 mg QHS PO Last administered on 07/20/16 20:49; Admin Dose 5 MG; Start 07/09/16 at 21:00 Zinc Sulfate (Zinc Sulfate) 220 mg DAILY PO Last administered on 07/21/16 09:29 ; Admin Dose 220 MG; Start 07/10/16 at 09:00 Acetaminophen (Tylenol Supp) 650 mg Q6H PRN [place] ELEVATED TEMPERATURE Last administered on 07/10/16 09:51; Admin Dose 650 MG; Start 07/10/16 at 09:30 Collagenase (Santyl) 1 applic DAILY TOP Last administered on 07/20/16 09:36; Admin Dose 1 APPLIC; Start 07/10/16 at 14:00 Bisacodyl (Dulcolax) 10 mg BID PO Last administered on 07/21/16 09:30; Admin Dose 10 MG; Start 07/13/16 at 15:00 Benazepril HCl (Lotensin) 20 mg DAILY PO Last administered on 07/21/16 09:29; Admin Dose 20 MG; Start 07/16/16 at 09:00 Lorazepam (Ativan) 0.5 mg Q6H PRN IV ANXIETY Last administered on 07/18/16 09: 58; Admin Dose 0.5 MG; Start 07/16/16 at 23:30 Zolpidem Tartrate (Ambien) 2.5 mg HS PRN PO INSOMNIA; Start 07/17/16 at 19:00 Epoetin Zana (Epogen (Esrd)) 6,000 units TuThSa@17 SC Last administered on 18:06; Admin Dose 6,000 UNITS; Start 07/17/16 at 20:00 Miscellaneous Information This patient ellis... PRN PRN XX WOUND CARE; Start at 07:00 Linezolid (Zyvox 600mg/D5W (Pmx)) 300 ml @ 300 mls/hr Q12 IVPB Last administered on 07/21/16 09:48; Admin Dose 300 MLS/HR; Start 07/18/16 at 11:00 Lorazepam 0.5 mg 0.5 mg Q6H PRN PO ANXEITY Last administered on 07/19/16 22:28 ; Admin Dose 0.5 MG; Start 07/18/16 at 16:00 Potassium Chloride/Dextrose (D5W + KCl 20 Meq) 1,000 ml @ 80 mls/hr [id number] IV Last administered on 07/21/16 05:08; Admin Dose 80 MLS/HR; Start 07/18/16 at 16 :30 Clonidine (Catapres) 0.1 mg TID PO Last administered on 07/21/16 13:05; Admin Dose 0.1 MG; Start 07/19/16 at 09:00 Nifedipine (Procardia Xl) 30 mg QHS PO ; Start 07/20/16 at 21:00 ALVA GEE MD Jul 21, 2016 18:40
--- NOTE | 2016-07-21 19:50 | PN ---
Date/Time of Note Date/Time of Note DATE: 07/21/16 TIME: 19:46 Assessment/Plan VTE Prophylaxis VTE Prophylaxis Intervention: SCD's Lines/Catheters IV Catheter Type (from [facility] Peripheral IV Urinary Cath still in place: Yes Reason Cath still needed: urinary retention Assessment/Plan Chief Complaint/Hosp Course Patient is awake alert, good urine output Via Avila catheter. Increased leukocytosis. Urine and blood cultures collected. Continued on antibiotics per ID. Assessment/Plan - C. difficile colitis. Dr. Henderson is following an infection disease consultation. Continue oral vancomycin. - Status post colonoscopy with notion of colitis ulcers. Continue to follow-up gastroenterology recommendations. - Infected wounds on bilateral lower extremities. Continue antibiotics per ID. - Acute kidney injury, etiology unknown. Dr. Srinivasan is following in nephrology consultation. - Acute metabolic encephalopathy, resolving. - Hypertension. Continue clonidine, Procardia and benazepril - Chronic obstructive pulmonary disease. - Benign prostatic hypertrophy. Continue Flomax. - Loculated pleural effusion, resolving. - Multiple decubitus ulcers. Continue current wound care - Acute cerebrovascular accident. Continue aspirin. - Dyslipidemia. Continue Lipitor. - Dementia with behavioral disturbance. Continue Zyprexa. Further recommendations based on clinical course. Plan of care discussed with Dr. Rene. Problems: Exam/Review of Systems Vital Signs Vitals Vital Signs Date Time Temp Pulse Resp B/P Pulse Ox O2 Delivery O2 Flow Rate FiO2 07/21/16 16:57 2.0 07/21/16 13:06 60 121/62 07/21/16 08:45 Nasal Cannula 07/21/16 08:18 98.7 18 96 Intake and Output 07/20/16 07/20/16 07/21/16 15:00 23:00 07:00 Intake Total 700 ml 1660 ml 600 ml Output Total 1150 ml 1000 ml Balance 700 ml 510 ml -400 ml Exam Constitutional: Lethargic, frail Psych: confusion Neck: supple Respiratory: clear to auscultation Cardiovascular: nl pulses, regular rate and rhythm Gastrointestinal: non-tender, soft Genitourinary - Male: other Skin: other (BLE wounds) Results Result Diagram: 07/21/16 0510 07/21/16 0510 Results 24 hrs Laboratory Tests Test 07/21/16 05:10 White Blood Count 22.9 #H Red Blood Count 2.87 L Hemoglobin 8.4 L Hematocrit 25.5 L Mean Corpuscular Volume 88.9 Mean Corpuscular Hemoglobin 29.3 Mean Corpuscular Hemoglobin Concent 32.9 Red Cell Distribution Width 13.5 Platelet Count 291 Mean Platelet Volume 9.5 Neutrophils % 83.5 H Lymphocytes % 6.8 L Monocytes % 6.2 Eosinophils % 2.5 Basophils % 0.1 Nucleated Red Blood Cells % 0.0 Neutrophils # 19.1 H Lymphocytes # 1.6 Monocytes # 1.4 H Eosinophils # 0.6 H Basophils # 0.0 Nucleated Red Blood Cells # 0.0 Sodium Level 137 Potassium Level 3.8 Chloride Level 114 H Carbon Dioxide Level 18 L Anion Gap 9 Blood Urea Nitrogen 57 H Creatinine 3.12 H Glucose Level 102 Calcium Level 7.2 L Medications Medications Current Medications Acetaminophen (Tylenol Tab) 500 mg Q6H PRN PO PAIN AND OR ELEVATED TEMP; Start 07/09/16 at 20:30 Ondansetron HCl (Zofran Inj) 4 mg Q6H PRN IV NAUSEA AND/OR VOMITING; Start at 20:30 Aspirin (Aspirin) 81 mg DAILY PO Last administered on 07/21/16 09:29; Admin Dose 81 MG; Start 07/10/16 at 09:00 Benztropine Mesylate (Cogentin) 1 mg BID PO Last administered on 07/21/16 09:46 ; Admin Dose 1 MG; Start 07/09/16 at 21:00 Finasteride (Proscar) 5 mg DAILY PO Last administered on 07/21/16 09:29; Admin Dose 5 MG; Start 07/10/16 at 09:00 Acetaminophen/ Hydrocodone Bitart ([place] (5/325)) 1 tab Q4 PRN PO SEVERE PAIN LEVEL 7-10 Last administered on 07/15/16 16:21; Admin Dose 1 TAB; Start at 20:30 Latanoprost (Xalatan) 1 drop QHS BOTH EYES Last administered on 07/19/16 22:27 ; Admin Dose 1 DROP; Start 07/09/16 at 21:00 Multivitamins Therapeutic (Theragran) 1 tab DAILY PO Last administered on 09:29; Admin Dose 1 TAB; Start 07/10/16 at 09:00 Olanzapine (Zyprexa) 5 mg QHS PO Last administered on 07/20/16 20:49; Admin Dose 5 MG; Start 07/09/16 at 21:00 Zinc Sulfate (Zinc Sulfate) 220 mg DAILY PO Last administered on 07/21/16 09:29 ; Admin Dose 220 MG; Start 07/10/16 at 09:00 Acetaminophen (Tylenol Supp) 650 mg Q6H PRN [place] ELEVATED TEMPERATURE Last administered on 07/10/16 09:51; Admin Dose 650 MG; Start 07/10/16 at 09:30 Collagenase (Santyl) 1 applic DAILY TOP Last administered on 07/20/16 09:36; Admin Dose 1 APPLIC; Start 07/10/16 at 14:00 Bisacodyl (Dulcolax) 10 mg BID PO Last administered on 07/21/16 09:30; Admin Dose 10 MG; Start 07/13/16 at 15:00 Benazepril HCl (Lotensin) 20 mg DAILY PO Last administered on 07/21/16 09:29; Admin Dose 20 MG; Start 07/16/16 at 09:00 Lorazepam (Ativan) 0.5 mg Q6H PRN IV ANXIETY Last administered on 07/18/16 09: 58; Admin Dose 0.5 MG; Start 07/16/16 at 23:30 Zolpidem Tartrate (Ambien) 2.5 mg HS PRN PO INSOMNIA; Start 07/17/16 at 19:00 Epoetin Zana (Epogen (Esrd)) 6,000 units TuThSa@17 SC Last administered on 18:06; Admin Dose 6,000 UNITS; Start 07/17/16 at 20:00 Miscellaneous Information This patient ellis... PRN PRN XX WOUND CARE; Start at 07:00 Linezolid (Zyvox 600mg/D5W (Pmx)) 300 ml @ 300 mls/hr Q12 IVPB Last administered on 07/21/16 09:48; Admin Dose 300 MLS/HR; Start 07/18/16 at 11:00 Lorazepam 0.5 mg 0.5 mg Q6H PRN PO ANXEITY Last administered on 07/19/16 22:28 ; Admin Dose 0.5 MG; Start 07/18/16 at 16:00 Potassium Chloride/Dextrose (D5W + KCl 20 Meq) 1,000 ml @ 80 mls/hr [id number] IV Last administered on 07/21/16 05:08; Admin Dose 80 MLS/HR; Start 07/18/16 at 16 :30 Clonidine (Catapres) 0.1 mg TID PO Last administered on 07/21/16 13:05; Admin Dose 0.1 MG; Start 07/19/16 at 09:00 Nifedipine (Procardia Xl) 30 mg QHS PO ; Start 07/20/16 at 21:00 Vancomycin HCl (Vancomycin Oral Syringe) 125 mg Q6 PO ; Start 07/21/16 at 19:00 ALE MCCONNELL Jul 21, 2016 19:50
[2016-07-21 20:19] VITALS: BP 170/82; RESP 22
[2016-07-21] MEDS: VANCOMYCIN HCL 250 MG/5ML POSYG PO SCH (20:41)
[2016-07-21] MEDS: OLANZAPINE 5 MG TAB PO SCH (20:50)
[2016-07-21] MEDS: NIFEdipine (XL) 30 MG TAB PO SCH (20:51)
[2016-07-21] MEDS: LATANOPROST 0.005% 2.5 ML OPH BOTH EYES SCH (23:39)
[2016-07-22] MEDS: VANCOMYCIN HCL 250 MG/5ML POSYG PO SCH ×4 (01:35→18:02)
[2016-07-22] MEDS: COLLAGENASE 30 GM TUBE TOP SCH ×2 (02:52→10:12)
[2016-07-22 06:26] LABS: ADD SCAN DIFF NO
[2016-07-22 06:32] LABS: ABNORMAL IP MESSAGE 1; BASOPHILS % 0.1 % (0.0-2.0); EOSINOPHILS # 0.5 10^3/ul (0.0-0.5); EOSINOPHILS % 1.9 % (0.0-7.0); HEMOGLOBIN 8.9 g/dl (14.0-18.0); LYMPHOCYTES # 1.4 10^3/ul (0.8-2.9); LYMPHOCYTES % 5.1 % (15.0-51.0); MEAN CORPUSCULAR HEMOGLOBIN 29.5 pg (29.0-33.0); MEAN CORPUSCULAR VOLUME 89.4 fl (82.0-101.0); MEAN PLATELET VOLUME 9.3 fl (7.4-10.4); MONOCYTE # 1.3 10^3/ul (0.3-0.9); MONOCYTES % 4.9 % (0.0-11.0); NEUTROPHIL # 23.6 10^3/ul (1.6-7.5); NEUTROPHILS % 87.3 % (39.0-77.0); PLATELET COUNT 316 10^3/UL (140-415); RED BLOOD COUNT 3.02 10^6/ul (4.70-6.10); RED CELL DISTRIBUTION WIDTH 13.7 % (11.5-14.5)
[2016-07-22 06:54] LABS: CALCIUM 7.3 mg/dl (8.4-10.2); CREATININE 3.15 mg/dl (0.61-1.24); POTASSIUM 4.1 mmol/L (3.5-5.1)
[2016-07-22] MEDS: D5W + KCL 20 MEQ 1,000 ML IV SCH ×3 (08:00→20:30)
[2016-07-22 08:16] VITALS: BP 168/78; RESP 18
[2016-07-22] MEDS: PANTOPRAZOLE (EC) 40 MG TAB PO SCH (10:01)
[2016-07-22] MEDS: BENZTROPINE 1 MG TAB PO SCH ×2 (10:02→21:05)
[2016-07-22] MEDS: CALCIUM CARBONATE 750 MG CHEW TAB PO SCH ×3 (10:02→18:03)
[2016-07-22] MEDS: FINASTERIDE 5 MG TAB PO SCH (10:02)
[2016-07-22] MEDS: BISACODYL (EC) 5 MG TAB PO SCH ×2 (10:02→21:05)
[2016-07-22] MEDS: ZINC SULFATE 220 MG CAP PO SCH (10:02)
[2016-07-22] MEDS: MULTIVITAMINS THERAPEUTIC TAB PO SCH (10:02)
[2016-07-22] MEDS: ASPIRIN 81 MG TAB PO SCH (10:02)
[2016-07-22] MEDS: BENAZEPRIL 20 MG TAB PO SCH (10:03)
[2016-07-22] MEDS: LINEZOLID 600 MG/D5W (PMX) 300 ML IVPB SCH ×2 (10:12→21:05)
--- NOTE | 2016-07-22 11:51 | CONS ---
Date/Time of Note Date/Time of Note DATE: 07/22/16 TIME: 11:50 Assessment/Plan Assessment/Plan Additional Assessment/Plan 1. Acute kidney injury, Pre- Renal R/o ATN, Avila no signs of obstructive Uropathy, Hx of BPH.- Non Oliguric 2. Hypertension. Normotensive at this time. 3. Chronic obstructive pulmonary disease. 4. Benign prostatic hypertrophy. 5. Loculated pleural effusion. 6. Multiple decubiti 7. Cerebrovascular accident. 8. Dyslipidemia. 9. Dementia with behavioral disturbance. 10. Metabolic Acidosis-stable Renal function is stable Pt is non oliguric, K and Na wnl Cont current Rx and plan No acute indication for HD at this time Consultation Date/Type/Reason Admit Date/Time July 09, 2016 at 12:24 Type of Consultation: Renal Referring Provider: RONNIE PATEL MD 24 HR Interval Summary Free Text/Dictation No new complaints, Good UO Exam/Review of Systems Vital Signs Vitals Vital Signs Date Time Temp Pulse Resp B/P Pulse Ox O2 Delivery O2 Flow Rate FiO2 07/22/16 08:16 98.7 68 18 168/78 97 07/22/16 01:15 2.0 07/21/16 20:00 Nasal Cannula Intake and Output 07/21/16 07/21/16 07/22/16 15:00 23:00 07:00 Intake Total 1075 ml 1020 ml 905 ml Output Total 1000 ml 900 ml Balance 1075 ml 20 ml 5 ml Exam Constitutional: alert, No distress ENMT: mucosa pink and moist Neck: No jvd Respiratory: diminished breath sounds, No labored breathing Cardiovascular: edema, regular rate and rhythm Gastrointestinal: non-tender, soft Neurological: lethargic Skin: No diaphoresis Results Result Diagram: 07/22/16 0551 07/22/16 0551 Results 24 hrs Laboratory Tests Test 07/22/16 05:51 White Blood Count 27.0 H Red Blood Count 3.02 L Hemoglobin 8.9 L Hematocrit 27.0 L Mean Corpuscular Volume 89.4 Mean Corpuscular Hemoglobin 29.5 Mean Corpuscular Hemoglobin Concent 33.0 Red Cell Distribution Width 13.7 Platelet Count 316 Mean Platelet Volume 9.3 Neutrophils % 87.3 H Lymphocytes % 5.1 L Monocytes % 4.9 Eosinophils % 1.9 Basophils % 0.1 Nucleated Red Blood Cells % 0.0 Neutrophils # 23.6 H Lymphocytes # 1.4 Monocytes # 1.3 H Eosinophils # 0.5 Basophils # 0.0 Nucleated Red Blood Cells # 0.0 Sodium Level 135 Potassium Level 4.1 Chloride Level 110 Carbon Dioxide Level 18 L Anion Gap 11 Blood Urea Nitrogen 56 H Creatinine 3.15 H Glucose Level 109 Calcium Level 7.3 L Medications Medications Current Medications Acetaminophen (Tylenol Tab) 500 mg Q6H PRN PO PAIN AND OR ELEVATED TEMP; Start 07/09/16 at 20:30 Ondansetron HCl (Zofran Inj) 4 mg Q6H PRN IV NAUSEA AND/OR VOMITING; Start at 20:30 Aspirin (Aspirin) 81 mg DAILY PO Last administered on 07/22/16 10:02; Admin Dose 81 MG; Start 07/10/16 at 09:00 Benztropine Mesylate (Cogentin) 1 mg BID PO Last administered on 07/22/16 10:02 ; Admin Dose 1 MG; Start 07/09/16 at 21:00 Finasteride (Proscar) 5 mg DAILY PO Last administered on 07/22/16 10:02; Admin Dose 5 MG; Start 07/10/16 at 09:00 Acetaminophen/ Hydrocodone Bitart ([place] (5/325)) 1 tab Q4 PRN PO SEVERE PAIN LEVEL 7-10 Last administered on 07/15/16 16:21; Admin Dose 1 TAB; Start at 20:30 Latanoprost (Xalatan) 1 drop QHS BOTH EYES Last administered on 07/21/16 23:39 ; Admin Dose 1 DROP; Start 07/09/16 at 21:00 Multivitamins Therapeutic (Theragran) 1 tab DAILY PO Last administered on 10:02; Admin Dose 1 TAB; Start 07/10/16 at 09:00 Olanzapine (Zyprexa) 5 mg QHS PO Last administered on 07/21/16 20:50; Admin Dose 5 MG; Start 07/09/16 at 21:00 Zinc Sulfate (Zinc Sulfate) 220 mg DAILY PO Last administered on 07/22/16 10:02 ; Admin Dose 220 MG; Start 07/10/16 at 09:00 Acetaminophen (Tylenol Supp) 650 mg Q6H PRN [place] ELEVATED TEMPERATURE Last administered on 07/10/16 09:51; Admin Dose 650 MG; Start 07/10/16 at 09:30 Collagenase (Santyl) 1 applic DAILY TOP Last administered on 07/22/16 10:12; Admin Dose 1 APPLIC; Start 07/10/16 at 14:00 Bisacodyl (Dulcolax) 10 mg BID PO Last administered on 07/22/16 10:02; Admin Dose 10 MG; Start 07/13/16 at 15:00 Benazepril HCl (Lotensin) 20 mg DAILY PO Last administered on 07/22/16 10:03; Admin Dose 20 MG; Start 07/16/16 at 09:00 Lorazepam (Ativan) 0.5 mg Q6H PRN IV ANXIETY Last administered on 07/18/16 09: 58; Admin Dose 0.5 MG; Start 07/16/16 at 23:30 Zolpidem Tartrate (Ambien) 2.5 mg HS PRN PO INSOMNIA; Start 07/17/16 at 19:00 Epoetin Zana (Epogen (Esrd)) 6,000 units TuThSa@17 SC Last administered on 18:06; Admin Dose 6,000 UNITS; Start 07/17/16 at 20:00 Miscellaneous Information This patient ellis... PRN PRN XX WOUND CARE; Start at 07:00 Linezolid (Zyvox 600mg/D5W (Pmx)) 300 ml @ 300 mls/hr Q12 IVPB Last administered on 07/22/16 10:12; Admin Dose 300 MLS/HR; Start 07/18/16 at 11:00 Lorazepam 0.5 mg 0.5 mg Q6H PRN PO ANXEITY Last administered on 07/19/16 22:28 ; Admin Dose 0.5 MG; Start 07/18/16 at 16:00 Potassium Chloride/Dextrose (D5W + KCl 20 Meq) 1,000 ml @ 80 mls/hr [id number] IV Last administered on 07/21/16 23:39; Admin Dose 80 MLS/HR; Start 07/18/16 at 16 :30 Clonidine (Catapres) 0.1 mg TID PO Last administered on 07/22/16 10:03; Admin Dose 0.1 MG; Start 07/19/16 at 09:00 Nifedipine (Procardia Xl) 30 mg QHS PO Last administered on 07/21/16 20:51; Admin Dose 30 MG; Start 07/20/16 at 21:00 Vancomycin HCl (Vancomycin Oral Syringe) 125 mg Q6 PO Last administered on 06:16; Admin Dose 125 MG; Start 07/21/16 at 19:00 TACOS GREEN MD Jul 22, 2016 11:51
[2016-07-22 13:38] VITALS: BP 155/74; PULSE 69
--- NOTE | 2016-07-22 16:31 | CONS ---
Date/Time of Note Date/Time of Note DATE: 07/22/16 TIME: 16:29 Assessment/Plan Assessment/Plan Chief Complaint/Hosp Course - leukocytosis, possible early sepsis - infection of wounds of b/l heel due to MRSA, XR showed no bony abnormalities - unstageable decub of b/l heel - C diff colitis - s/p possible HCAP, Pt completed empiric cefepime (07/10/2016-07/19/2016); CXR on 07/20/2016 showed improvement. 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 Given by IV because Pt's often confused and PO intake can be affected. Will monitor CBC while Pt's on linezolid - continue PO vancomycin (02/14/2017-) while Pt's on antibiotics - IV Flagyl Problems: Consultation Date/Type/Reason Admit Date/Time July 09, 2016 at 12:24 Type of Consultation: id Referring Provider: RONNIE PATEL MD 24 HR Interval Summary Free Text/Dictation d/w nursing. Exam/Review of Systems Vital Signs Vitals Vital Signs Date Time Temp Pulse Resp B/P Pulse Ox O2 Delivery O2 Flow Rate FiO2 07/22/16 14:27 2.0 07/22/16 13:38 69 155/74 07/22/16 08:16 98.7 18 97 07/21/16 20:00 Nasal Cannula Intake and Output 07/21/16 07/21/16 07/22/16 15:00 23:00 07:00 Intake Total 1075 ml 1020 ml 905 ml Output Total 1000 ml 900 ml Balance 1075 ml 20 ml 5 ml Exam Constitutional: alert Eyes: EOMI Respiratory: clear to auscultation Cardiovascular: nl pulses, regular rate and rhythm Gastrointestinal: nl liver, spleen, non-tender, soft Results Result Diagram: 07/22/16 0551 07/22/16 0551 Results 24 hrs Laboratory Tests Test 07/22/16 05:51 White Blood Count 27.0 H Red Blood Count 3.02 L Hemoglobin 8.9 L Hematocrit 27.0 L Mean Corpuscular Volume 89.4 Mean Corpuscular Hemoglobin 29.5 Mean Corpuscular Hemoglobin Concent 33.0 Red Cell Distribution Width 13.7 Platelet Count 316 Mean Platelet Volume 9.3 Neutrophils % 87.3 H Lymphocytes % 5.1 L Monocytes % 4.9 Eosinophils % 1.9 Basophils % 0.1 Nucleated Red Blood Cells % 0.0 Neutrophils # 23.6 H Lymphocytes # 1.4 Monocytes # 1.3 H Eosinophils # 0.5 Basophils # 0.0 Nucleated Red Blood Cells # 0.0 Sodium Level 135 Potassium Level 4.1 Chloride Level 110 Carbon Dioxide Level 18 L Anion Gap 11 Blood Urea Nitrogen 56 H Creatinine 3.15 H Glucose Level 109 Calcium Level 7.3 L Medications Medications Current Medications Acetaminophen (Tylenol Tab) 500 mg Q6H PRN PO PAIN AND OR ELEVATED TEMP; Start 07/09/16 at 20:30 Ondansetron HCl (Zofran Inj) 4 mg Q6H PRN IV NAUSEA AND/OR VOMITING; Start at 20:30 Aspirin (Aspirin) 81 mg DAILY PO Last administered on 07/22/16 10:02; Admin Dose 81 MG; Start 07/10/16 at 09:00 Benztropine Mesylate (Cogentin) 1 mg BID PO Last administered on 07/22/16 10:02 ; Admin Dose 1 MG; Start 07/09/16 at 21:00 Finasteride (Proscar) 5 mg DAILY PO Last administered on 07/22/16 10:02; Admin Dose 5 MG; Start 07/10/16 at 09:00 Acetaminophen/ Hydrocodone Bitart ([place] (5/325)) 1 tab Q4 PRN PO SEVERE PAIN LEVEL 7-10 Last administered on 07/15/16 16:21; Admin Dose 1 TAB; Start at 20:30 Latanoprost (Xalatan) 1 drop QHS BOTH EYES Last administered on 07/21/16 23:39 ; Admin Dose 1 DROP; Start 07/09/16 at 21:00 Multivitamins Therapeutic (Theragran) 1 tab DAILY PO Last administered on 10:02; Admin Dose 1 TAB; Start 07/10/16 at 09:00 Olanzapine (Zyprexa) 5 mg QHS PO Last administered on 07/21/16 20:50; Admin Dose 5 MG; Start 07/09/16 at 21:00 Zinc Sulfate (Zinc Sulfate) 220 mg DAILY PO Last administered on 07/22/16 10:02 ; Admin Dose 220 MG; Start 07/10/16 at 09:00 Acetaminophen (Tylenol Supp) 650 mg Q6H PRN [place] ELEVATED TEMPERATURE Last administered on 07/10/16 09:51; Admin Dose 650 MG; Start 07/10/16 at 09:30 Collagenase (Santyl) 1 applic DAILY TOP Last administered on 07/22/16 10:12; Admin Dose 1 APPLIC; Start 07/10/16 at 14:00 Bisacodyl (Dulcolax) 10 mg BID PO Last administered on 07/22/16 10:02; Admin Dose 10 MG; Start 07/13/16 at 15:00 Benazepril HCl (Lotensin) 20 mg DAILY PO Last administered on 07/22/16 10:03; Admin Dose 20 MG; Start 07/16/16 at 09:00 Lorazepam (Ativan) 0.5 mg Q6H PRN IV ANXIETY Last administered on 07/18/16 09: 58; Admin Dose 0.5 MG; Start 07/16/16 at 23:30 Zolpidem Tartrate (Ambien) 2.5 mg HS PRN PO INSOMNIA; Start 07/17/16 at 19:00 Epoetin Zana (Epogen (Esrd)) 6,000 units TuThSa@17 SC Last administered on 18:06; Admin Dose 6,000 UNITS; Start 07/17/16 at 20:00 Miscellaneous Information This patient ellis... PRN PRN XX WOUND CARE; Start at 07:00 Linezolid (Zyvox 600mg/D5W (Pmx)) 300 ml @ 300 mls/hr Q12 IVPB Last administered on 07/22/16 10:12; Admin Dose 300 MLS/HR; Start 07/18/16 at 11:00 Lorazepam 0.5 mg 0.5 mg Q6H PRN PO ANXEITY Last administered on 07/19/16 22:28 ; Admin Dose 0.5 MG; Start 07/18/16 at 16:00 Potassium Chloride/Dextrose (D5W + KCl 20 Meq) 1,000 ml @ 80 mls/hr [id number] IV Last administered on 07/22/16 14:18; Admin Dose 80 MLS/HR; Start 07/18/16 at 16 :30 Clonidine (Catapres) 0.1 mg TID PO Last administered on 07/22/16 13:35; Admin Dose 0.1 MG; Start 07/19/16 at 09:00 Nifedipine (Procardia Xl) 30 mg QHS PO Last administered on 07/21/16 20:51; Admin Dose 30 MG; Start 07/20/16 at 21:00 Vancomycin HCl (Vancomycin Oral Syringe) 125 mg Q6 PO Last administered on 13:34; Admin Dose 125 MG; Start 07/21/16 at 19:00 ALVA GEE MD Jul 22, 2016 16:31
[2016-07-22] MEDS: metroNIDAZOLE 500 MG/NS (PMX) 100 ML IVPB SCH ×2 (18:00→22:36)
[2016-07-22] MEDS: EPOETIN 3000 UNITS/1 ML INJ (ESRD) SC SCH (18:02)
--- NOTE | 2016-07-22 19:09 | PN ---
Date/Time of Note Date/Time of Note DATE: 07/22/16 TIME: 19:05 Assessment/Plan VTE Prophylaxis VTE Prophylaxis Intervention: SCD's Lines/Catheters IV Catheter Type (from [facility], [place]): Peripheral IV Urinary Cath still in place: Yes Reason Cath still needed: urinary retention Assessment/Plan Chief Complaint/Hosp Course Patient was increased leukocytosis no fever, blood cultures is negative so far follow-up of the final culture. Assessment/Plan - C. difficile colitis. Dr. Henderson is following an infection disease consultation. Continue oral vancomycin and intravenous Flagyl. - Status post colonoscopy with notion of colitis ulcers. Continue to follow-up gastroenterology recommendations. - Infected wounds on bilateral lower extremities. Continue antibiotics per ID. - Acute kidney injury, etiology unknown. Dr. Srinivasan is following in nephrology consultation. - Acute metabolic encephalopathy, resolving. - Hypertension. Continue clonidine, Procardia and benazepril - Chronic obstructive pulmonary disease. - Benign prostatic hypertrophy. Continue Flomax. - Loculated pleural effusion, resolving. - Multiple decubitus ulcers. Continue current wound care - Acute cerebrovascular accident. Continue aspirin. - Dyslipidemia. Continue Lipitor. - Dementia with behavioral disturbance. Continue Zyprexa. Further recommendations based on clinical course. Plan of care discussed with Dr. Rene. Problems: Exam/Review of Systems Vital Signs Vitals Vital Signs Date Time Temp Pulse Resp B/P Pulse Ox O2 Delivery O2 Flow Rate FiO2 07/22/16 14:27 2.0 07/22/16 13:38 69 155/74 07/22/16 08:16 98.7 18 97 07/21/16 20:00 Nasal Cannula Intake and Output 07/21/16 07/21/16 07/22/16 15:00 23:00 07:00 Intake Total 1075 ml 1020 ml 905 ml Output Total 1000 ml 900 ml Balance 1075 ml 20 ml 5 ml Exam Constitutional: Lethargic, frail Psych: confusion Neck: supple Respiratory: clear to auscultation Cardiovascular: nl pulses, regular rate and rhythm Gastrointestinal: non-tender, soft Genitourinary - Male: other Skin: other (BLE wounds) Results Result Diagram: 07/22/16 0551 07/22/16 0551 Results 24 hrs Laboratory Tests Test 07/22/16 05:51 White Blood Count 27.0 H Red Blood Count 3.02 L Hemoglobin 8.9 L Hematocrit 27.0 L Mean Corpuscular Volume 89.4 Mean Corpuscular Hemoglobin 29.5 Mean Corpuscular Hemoglobin Concent 33.0 Red Cell Distribution Width 13.7 Platelet Count 316 Mean Platelet Volume 9.3 Neutrophils % 87.3 H Lymphocytes % 5.1 L Monocytes % 4.9 Eosinophils % 1.9 Basophils % 0.1 Nucleated Red Blood Cells % 0.0 Neutrophils # 23.6 H Lymphocytes # 1.4 Monocytes # 1.3 H Eosinophils # 0.5 Basophils # 0.0 Nucleated Red Blood Cells # 0.0 Sodium Level 135 Potassium Level 4.1 Chloride Level 110 Carbon Dioxide Level 18 L Anion Gap 11 Blood Urea Nitrogen 56 H Creatinine 3.15 H Glucose Level 109 Calcium Level 7.3 L Medications Medications Current Medications Acetaminophen (Tylenol Tab) 500 mg Q6H PRN PO PAIN AND OR ELEVATED TEMP; Start 07/09/16 at 20:30 Ondansetron HCl (Zofran Inj) 4 mg Q6H PRN IV NAUSEA AND/OR VOMITING; Start at 20:30 Aspirin (Aspirin) 81 mg DAILY PO Last administered on 07/22/16 10:02; Admin Dose 81 MG; Start 07/10/16 at 09:00 Benztropine Mesylate (Cogentin) 1 mg BID PO Last administered on 07/22/16 10:02 ; Admin Dose 1 MG; Start 07/09/16 at 21:00 Finasteride (Proscar) 5 mg DAILY PO Last administered on 07/22/16 10:02; Admin Dose 5 MG; Start 07/10/16 at 09:00 Acetaminophen/ Hydrocodone Bitart ([place] (5/325)) 1 tab Q4 PRN PO SEVERE PAIN LEVEL 7-10 Last administered on 07/15/16 16:21; Admin Dose 1 TAB; Start at 20:30 Latanoprost (Xalatan) 1 drop QHS BOTH EYES Last administered on 07/21/16 23:39 ; Admin Dose 1 DROP; Start 07/09/16 at 21:00 Multivitamins Therapeutic (Theragran) 1 tab DAILY PO Last administered on 10:02; Admin Dose 1 TAB; Start 07/10/16 at 09:00 Olanzapine (Zyprexa) 5 mg QHS PO Last administered on 07/21/16 20:50; Admin Dose 5 MG; Start 07/09/16 at 21:00 Zinc Sulfate (Zinc Sulfate) 220 mg DAILY PO Last administered on 07/22/16 10:02 ; Admin Dose 220 MG; Start 07/10/16 at 09:00 Acetaminophen (Tylenol Supp) 650 mg Q6H PRN [place] ELEVATED TEMPERATURE Last administered on 07/10/16 09:51; Admin Dose 650 MG; Start 07/10/16 at 09:30 Collagenase (Santyl) 1 applic DAILY TOP Last administered on 07/22/16 10:12; Admin Dose 1 APPLIC; Start 07/10/16 at 14:00 Bisacodyl (Dulcolax) 10 mg BID PO Last administered on 07/22/16 10:02; Admin Dose 10 MG; Start 07/13/16 at 15:00 Benazepril HCl (Lotensin) 20 mg DAILY PO Last administered on 07/22/16 10:03; Admin Dose 20 MG; Start 07/16/16 at 09:00 Lorazepam (Ativan) 0.5 mg Q6H PRN IV ANXIETY Last administered on 07/18/16 09: 58; Admin Dose 0.5 MG; Start 07/16/16 at 23:30 Zolpidem Tartrate (Ambien) 2.5 mg HS PRN PO INSOMNIA; Start 07/17/16 at 19:00 Epoetin Zana (Epogen (Esrd)) 6,000 units TuThSa@17 SC Last administered on 18:02; Admin Dose 6,000 UNITS; Start 07/17/16 at 20:00 Miscellaneous Information This patient ellis... PRN PRN XX WOUND CARE; Start at 07:00 Linezolid (Zyvox 600mg/D5W (Pmx)) 300 ml @ 300 mls/hr Q12 IVPB Last administered on 07/22/16 10:12; Admin Dose 300 MLS/HR; Start 07/18/16 at 11:00 Lorazepam 0.5 mg 0.5 mg Q6H PRN PO ANXEITY Last administered on 07/19/16 22:28 ; Admin Dose 0.5 MG; Start 07/18/16 at 16:00 Potassium Chloride/Dextrose (D5W + KCl 20 Meq) 1,000 ml @ 80 mls/hr [id number] IV Last administered on 07/22/16 14:18; Admin Dose 80 MLS/HR; Start 07/18/16 at 16 :30 Clonidine (Catapres) 0.1 mg TID PO Last administered on 07/22/16 13:35; Admin Dose 0.1 MG; Start 07/19/16 at 09:00 Nifedipine (Procardia Xl) 30 mg QHS PO Last administered on 07/21/16 20:51; Admin Dose 30 MG; Start 07/20/16 at 21:00 Vancomycin HCl 125 mg 125 mg Q6 PO Last administered on 07/22/16 18:02; Admin Dose 125 MG; Start 07/21/16 at 19:00 Metronidazole (Flagyl 500 Mg (Pmx)) 100 ml @ 100 mls/hr Q8 IVPB Last administered on 07/22/16 18:00; Admin Dose 100 MLS/HR; Start 07/22/16 at 16:30 ALE MCCONNELL Jul 22, 2016 19:08
[2016-07-22 19:13] VITALS: BP 119/64; RESP 20
[2016-07-22] MEDS: NIFEdipine (XL) 30 MG TAB PO SCH (21:00)
[2016-07-22] MEDS: OLANZAPINE 5 MG TAB PO SCH (21:05)
[2016-07-22] MEDS: LATANOPROST 0.005% 2.5 ML OPH BOTH EYES SCH (22:37)
[2016-07-23] MEDS: VANCOMYCIN HCL 250 MG/5ML POSYG PO SCH ×5 (00:36→23:26)
[2016-07-23] MEDS: metroNIDAZOLE 500 MG/NS (PMX) 100 ML IVPB SCH ×3 (05:52→23:26)
[2016-07-23] MEDS: D5W + KCL 20 MEQ 1,000 ML IV SCH ×3 (05:56→21:34)
[2016-07-23 06:16] LABS: ADD SCAN DIFF NO
[2016-07-23] MEDS: COLLAGENASE 30 GM TUBE TOP SCH ×2 (06:16→09:14)
[2016-07-23 06:20] LABS: ABNORMAL IP MESSAGE 1; HEMATOCRIT 27.4 % (42.0-52.0); MEAN CORPUSCULAR HEMOGLOBIN 29.9 pg (29.0-33.0); MEAN CORPUSCULAR HGB CONC 32.8 g/dl (32.0-37.0); MEAN PLATELET VOLUME 9.3 fl (7.4-10.4); PLATELET COUNT 295 10^3/UL (140-415); RED BLOOD COUNT 3.01 10^6/ul (4.70-6.10); RED CELL DISTRIBUTION WIDTH 13.8 % (11.5-14.5); WHITE BLOOD COUNT 24.6 10^3/ul (4.8-10.8)
[2016-07-23 06:45] LABS: CALCIUM 7.4 mg/dl (8.4-10.2); CREATININE 3.29 mg/dl (0.61-1.24); POTASSIUM 4.7 mmol/L (3.5-5.1)
[2016-07-23 08:15] LABS: BURR CELLS 2+; EOSINOPHILS # 0.7 10^3/ul (0.0-0.5); LYMPHOCYTES # 1.2 10^3/ul (0.8-2.9); MONOCYTE # 0.7 10^3/ul (0.3-0.9); NEUTROPHIL # 21.9 10^3/ul (1.6-7.5)
[2016-07-23 08:17] VITALS: BP 184/79; RESP 18
--- NOTE | 2016-07-23 09:03 | CONS ---
Date/Time of Note Date/Time of Note DATE: 07/23/16 TIME: 09:02 Assessment/Plan Assessment/Plan Additional Assessment/Plan 1. Acute kidney injury, Pre- Renal R/o ATN, [place] no signs of obstructive Uropathy, Hx of BPH.- Non Oliguric 2. Hypertension. Normotensive at this time. 3. Chronic obstructive pulmonary disease. 4. Benign prostatic hypertrophy. 5. Loculated pleural effusion. 6. Multiple decubiti 7. Cerebrovascular accident. 8. Dyslipidemia. 9. Dementia with behavioral disturbance. 10. Metabolic Acidosis-stable 11. Hyponatremia Renal function is stable Pt is non oliguric, Cont current Rx and plan No acute indication for HD at this time Consultation Date/Type/Reason Admit Date/Time July 09, 2016 at 12:24 Type of Consultation: renal Referring Provider: RONNIE PATEL MD 24 HR Interval Summary Free Text/Dictation No new complaints Constitutional: No requiring O2 Exam/Review of Systems Vital Signs Vitals Vital Signs Date Time Temp Pulse Resp B/P Pulse Ox O2 Delivery O2 Flow Rate FiO2 07/23/16 08:17 98.8 74 18 184/79 95 07/23/16 02:30 2.0 07/22/16 20:00 Nasal Cannula Intake and Output 07/22/16 07/22/16 07/23/16 15:00 23:00 07:00 Intake Total 820 ml 1200 ml 1520 ml Output Total 900 ml 900 ml Balance 820 ml 300 ml 620 ml Exam Constitutional: No distress ENMT: mucosa pink and moist Respiratory: No diminished breath sounds, No labored breathing Cardiovascular: regular rate and rhythm Gastrointestinal: non-tender, soft Neurological: No lethargic Skin: No diaphoresis Results Result Diagram: 07/23/16 0544 07/23/16 0544 Results 24 hrs Laboratory Tests Test 07/23/16 05:44 White Blood Count 24.6 H Red Blood Count 3.01 L Hemoglobin 9.0 L Hematocrit 27.4 L Mean Corpuscular Volume 91.0 Mean Corpuscular Hemoglobin 29.9 Mean Corpuscular Hemoglobin Concent 32.8 Red Cell Distribution Width 13.8 Platelet Count 295 Mean Platelet Volume 9.3 Neutrophils % 89.0 H Lymphocytes % 5.0 L Monocytes % 3.0 Eosinophils % 3.0 Neutrophils # 21.9 H Lymphocytes # 1.2 Monocytes # 0.7 Eosinophils # 0.7 H Sodium Level 134 L Potassium Level 4.7 Chloride Level 110 Carbon Dioxide Level 19 L Anion Gap 10 Blood Urea Nitrogen 57 H Creatinine 3.29 H Glucose Level 102 Calcium Level 7.4 L Medications Medications Current Medications Acetaminophen (Tylenol Tab) 500 mg Q6H PRN PO PAIN AND OR ELEVATED TEMP; Start 07/09/16 at 20:30 Ondansetron HCl (Zofran Inj) 4 mg Q6H PRN IV NAUSEA AND/OR VOMITING; Start at 20:30 Aspirin (Aspirin) 81 mg DAILY PO Last administered on 07/22/16 10:02; Admin Dose 81 MG; Start 07/10/16 at 09:00 Benztropine Mesylate (Cogentin) 1 mg BID PO Last administered on 07/22/16 21:05 ; Admin Dose 1 MG; Start 07/09/16 at 21:00 Finasteride (Proscar) 5 mg DAILY PO Last administered on 07/22/16 10:02; Admin Dose 5 MG; Start 07/10/16 at 09:00 Acetaminophen/ Hydrocodone Bitart ([place] (5/325)) 1 tab Q4 PRN PO SEVERE PAIN LEVEL 7-10 Last administered on 07/15/16 16:21; Admin Dose 1 TAB; Start at 20:30 Latanoprost (Xalatan) 1 drop QHS BOTH EYES Last administered on 07/22/16 22:37 ; Admin Dose 1 DROP; Start 07/09/16 at 21:00 Multivitamins Therapeutic (Theragran) 1 tab DAILY PO Last administered on 10:02; Admin Dose 1 TAB; Start 07/10/16 at 09:00 Olanzapine (Zyprexa) 5 mg QHS PO Last administered on 07/22/16 21:05; Admin Dose 5 MG; Start 07/09/16 at 21:00 Zinc Sulfate (Zinc Sulfate) 220 mg DAILY PO Last administered on 07/22/16 10:02 ; Admin Dose 220 MG; Start 07/10/16 at 09:00 Acetaminophen (Tylenol Supp) 650 mg Q6H PRN [place] ELEVATED TEMPERATURE Last administered on 07/10/16 09:51; Admin Dose 650 MG; Start 07/10/16 at 09:30 Collagenase (Santyl) 1 applic DAILY TOP Last administered on 07/23/16 06:16; Admin Dose 1 APPLIC; Start 07/10/16 at 14:00 Bisacodyl (Dulcolax) 10 mg BID PO Last administered on 07/22/16 21:05; Admin Dose 10 MG; Start 07/13/16 at 15:00 Benazepril HCl (Lotensin) 20 mg DAILY PO Last administered on 07/22/16 10:03; Admin Dose 20 MG; Start 07/16/16 at 09:00 Lorazepam (Ativan) 0.5 mg Q6H PRN IV ANXIETY Last administered on 07/18/16 09: 58; Admin Dose 0.5 MG; Start 07/16/16 at 23:30 Zolpidem Tartrate (Ambien) 2.5 mg HS PRN PO INSOMNIA; Start 07/17/16 at 19:00 Epoetin Zana (Epogen (Esrd)) 6,000 units TuThSa@17 SC Last administered on 18:02; Admin Dose 6,000 UNITS; Start 07/17/16 at 20:00 Miscellaneous Information This patient ellis... PRN PRN XX WOUND CARE; Start at 07:00 Linezolid (Zyvox 600mg/D5W (Pmx)) 300 ml @ 300 mls/hr Q12 IVPB Last administered on 07/22/16 21:05; Admin Dose 300 MLS/HR; Start 07/18/16 at 11:00 Lorazepam 0.5 mg 0.5 mg Q6H PRN PO ANXEITY Last administered on 07/19/16 22:28 ; Admin Dose 0.5 MG; Start 07/18/16 at 16:00 Potassium Chloride/Dextrose (D5W + KCl 20 Meq) 1,000 ml @ 80 mls/hr [id number] IV Last administered on 07/23/16 05:56; Admin Dose 80 MLS/HR; Start 07/18/16 at 16 :30 Clonidine (Catapres) 0.1 mg TID PO Last administered on 07/22/16 13:35; Admin Dose 0.1 MG; Start 07/19/16 at 09:00 Nifedipine (Procardia Xl) 30 mg QHS PO Last administered on 07/21/16 20:51; Admin Dose 30 MG; Start 07/20/16 at 21:00 Vancomycin HCl 125 mg 125 mg Q6 PO Last administered on 07/23/16 05:51; Admin Dose 125 MG; Start 07/21/16 at 19:00 Metronidazole (Flagyl 500 Mg (Pmx)) 100 ml @ 100 mls/hr Q8 IVPB Last administered on 07/23/16 05:52; Admin Dose 100 MLS/HR; Start 07/22/16 at 16:30 TACOS GREEN MD Jul 23, 2016 09:02
[2016-07-23] MEDS: FINASTERIDE 5 MG TAB PO SCH (09:12)
[2016-07-23] MEDS: MULTIVITAMINS THERAPEUTIC TAB PO SCH (09:12)
[2016-07-23] MEDS: PANTOPRAZOLE (EC) 40 MG TAB PO SCH (09:12)
[2016-07-23] MEDS: ASPIRIN 81 MG TAB PO SCH (09:12)
[2016-07-23] MEDS: ZINC SULFATE 220 MG CAP PO SCH (09:12)
[2016-07-23] MEDS: BISACODYL (EC) 5 MG TAB PO SCH ×2 (09:13→21:33)
[2016-07-23] MEDS: BENAZEPRIL 20 MG TAB PO SCH (09:13)
[2016-07-23] MEDS: BENZTROPINE 1 MG TAB PO SCH ×2 (09:13→21:33)
[2016-07-23] MEDS: CALCIUM CARBONATE 750 MG CHEW TAB PO SCH ×3 (09:13→17:45)
[2016-07-23] MEDS: LINEZOLID 600 MG/D5W (PMX) 300 ML IVPB SCH ×2 (09:14→21:32)
[2016-07-23 14:42] VITALS: BP 142/68; PULSE 67
--- NOTE | 2016-07-23 17:14 | PN ---
Date/Time of Note Date/Time of Note DATE: 07/23/16 TIME: 17:13 Assessment/Plan VTE Prophylaxis VTE Prophylaxis Intervention: SCD's Lines/Catheters IV [facility]ter Type (from [facility] Peripheral IV Urinary Cath still in place: Yes Reason Cath still needed: urinary retention Assessment/Plan Chief Complaint/Hosp Course Patient is lethargic but easily arousable, with persistent leukocytosis, febrile. Assessment/Plan - C. difficile colitis. Dr. Henderson is following an infection disease consultation. Continue oral vancomycin and intravenous Flagyl. - Status post colonoscopy with notion of colitis ulcers. Continue to follow-up gastroenterology recommendations. - Infected wounds on bilateral lower extremities. Continue antibiotics per ID. - Acute kidney injury, etiology unknown. Dr. Srinivasan is following in nephrology consultation. - Acute metabolic encephalopathy, resolving. - Hypertension. Continue clonidine, Procardia and benazepril - Chronic obstructive pulmonary disease. - Benign prostatic hypertrophy. Continue Flomax. - Loculated pleural effusion, resolving. - Multiple decubitus ulcers. Continue current wound care - Acute cerebrovascular accident. Continue aspirin. - Dyslipidemia. Continue Lipitor. - Dementia with behavioral disturbance. Continue Zyprexa. Further recommendations based on clinical course. Plan of care discussed with Dr. Rene. Problems: Exam/Review of Systems Vital Signs Vitals Vital Signs Date Time Temp Pulse Resp B/P Pulse Ox O2 Delivery O2 Flow Rate FiO2 07/23/16 14:42 67 142/68 07/23/16 09:00 Nasal Cannula 2.0 07/23/16 08:17 98.8 18 95 Intake and Output 07/22/16 07/22/16 07/23/16 15:00 23:00 07:00 Intake Total 820 ml 1200 ml 1520 ml Output Total 900 ml 900 ml Balance 820 ml 300 ml 620 ml Exam Constitutional: Lethargic, frail Psych: confusion Neck: supple Respiratory: clear to auscultation Cardiovascular: nl pulses, regular rate and rhythm Gastrointestinal: non-tender, soft Genitourinary - Male: other Skin: other (BLE wounds) Results Result Diagram: 07/23/16 0544 07/23/16 0544 Results 24 hrs Laboratory Tests Test 07/23/16 05:44 White Blood Count 24.6 H Red Blood Count 3.01 L Hemoglobin 9.0 L Hematocrit 27.4 L Mean Corpuscular Volume 91.0 Mean Corpuscular Hemoglobin 29.9 Mean Corpuscular Hemoglobin Concent 32.8 Red Cell Distribution Width 13.8 Platelet Count 295 Mean Platelet Volume 9.3 Neutrophils % 89.0 H Lymphocytes % 5.0 L Monocytes % 3.0 Eosinophils % 3.0 Neutrophils # 21.9 H Lymphocytes # 1.2 Monocytes # 0.7 Eosinophils # 0.7 H Sodium Level 134 L Potassium Level 4.7 Chloride Level 110 Carbon Dioxide Level 19 L Anion Gap 10 Blood Urea Nitrogen 57 H Creatinine 3.29 H Glucose Level 102 Calcium Level 7.4 L Medications Medications Current Medications Acetaminophen (Tylenol Tab) 500 mg Q6H PRN PO PAIN AND OR ELEVATED TEMP; Start 07/09/16 at 20:30 Ondansetron HCl (Zofran Inj) 4 mg Q6H PRN IV NAUSEA AND/OR VOMITING; Start at 20:30 Aspirin (Aspirin) 81 mg DAILY PO Last administered on 07/23/16 09:12; Admin Dose 81 MG; Start 07/10/16 at 09:00 Benztropine Mesylate (Cogentin) 1 mg BID PO Last administered on 07/23/16 09:13 ; Admin Dose 1 MG; Start 07/09/16 at 21:00 Finasteride (Proscar) 5 mg DAILY PO Last administered on 07/23/16 09:12; Admin Dose 5 MG; Start 07/10/16 at 09:00 Acetaminophen/ Hydrocodone Bitart ([place] (5/325)) 1 tab Q4 PRN PO SEVERE PAIN LEVEL 7-10 Last administered on 07/15/16 16:21; Admin Dose 1 TAB; Start at 20:30 Latanoprost (Xalatan) 1 drop QHS BOTH EYES Last administered on 07/22/16 22:37 ; Admin Dose 1 DROP; Start 07/09/16 at 21:00 Multivitamins Therapeutic (Theragran) 1 tab DAILY PO Last administered on 09:12; Admin Dose 1 TAB; Start 07/10/16 at 09:00 Olanzapine (Zyprexa) 5 mg QHS PO Last administered on 07/22/16 21:05; Admin Dose 5 MG; Start 07/09/16 at 21:00 Zinc Sulfate (Zinc Sulfate) 220 mg DAILY PO Last administered on 07/23/16 09:12 ; Admin Dose 220 MG; Start 07/10/16 at 09:00 Acetaminophen (Tylenol Supp) 650 mg Q6H PRN [place] ELEVATED TEMPERATURE Last administered on 07/10/16 09:51; Admin Dose 650 MG; Start 07/10/16 at 09:30 Collagenase (Santyl) 1 applic DAILY TOP Last administered on 07/23/16 09:14; Admin Dose 1 APPLIC; Start 07/10/16 at 14:00 Bisacodyl (Dulcolax) 10 mg BID PO Last administered on 07/23/16 09:13; Admin Dose 10 MG; Start 07/13/16 at 15:00 Benazepril HCl (Lotensin) 20 mg DAILY PO Last administered on 07/23/16 09:13; Admin Dose 20 MG; Start 07/16/16 at 09:00 Lorazepam (Ativan) 0.5 mg Q6H PRN IV ANXIETY Last administered on 07/18/16 09: 58; Admin Dose 0.5 MG; Start 07/16/16 at 23:30 Zolpidem Tartrate (Ambien) 2.5 mg HS PRN PO INSOMNIA; Start 07/17/16 at 19:00 Epoetin Zana (Epogen (Esrd)) 6,000 units TuThSa@17 SC Last administered on 18:02; Admin Dose 6,000 UNITS; Start 07/17/16 at 20:00 Miscellaneous Information This patient ellis... PRN PRN XX WOUND CARE; Start at 07:00 Linezolid (Zyvox 600mg/D5W (Pmx)) 300 ml @ 300 mls/hr Q12 IVPB Last administered on 07/23/16 09:14; Admin Dose 300 MLS/HR; Start 07/18/16 at 11:00 Lorazepam 0.5 mg 0.5 mg Q6H PRN PO ANXEITY Last administered on 07/19/16 22:28 ; Admin Dose 0.5 MG; Start 07/18/16 at 16:00 Potassium Chloride/Dextrose (D5W + KCl 20 Meq) 1,000 ml @ 80 mls/hr [id number] IV Last administered on 07/23/16 05:56; Admin Dose 80 MLS/HR; Start 07/18/16 at 16 :30 Clonidine (Catapres) 0.1 mg TID PO Last administered on 07/23/16 12:33; Admin Dose 0.1 MG; Start 07/19/16 at 09:00 Nifedipine (Procardia Xl) 30 mg QHS PO Last administered on 07/21/16 20:51; Admin Dose 30 MG; Start 07/20/16 at 21:00 Vancomycin HCl 125 mg 125 mg Q6 PO Last administered on 07/23/16 12:45; Admin Dose 125 MG; Start 07/21/16 at 19:00 Metronidazole (Flagyl 500 Mg (Pmx)) 100 ml @ 100 mls/hr Q8 IVPB Last administered on 07/23/16 14:28; Admin Dose 100 MLS/HR; Start 07/22/16 at 16:30 ALE MCCONNELL Jul 23, 2016 17:14
--- NOTE | 2016-07-23 17:39 | CONS ---
Date/Time of Note Date/Time of Note DATE: 07/23/16 TIME: 17:18 Consult Date/Type/Reason Admit Date/Time July 09, 2016 at 12:24 Initial Consult Date 07/11/16 Type of Consultation: Infectious Disease f/u Ordering Provider: RONNIE PATEL MD Subjective Feeling tired and less talkative today Objective Vital Signs Date Time Temp Pulse Resp B/P Pulse Ox O2 Delivery O2 Flow Rate FiO2 07/23/16 14:42 67 142/68 07/23/16 09:00 Nasal Cannula 2.0 07/23/16 08:17 98.8 18 95 Intake and Output 07/22/16 07/22/16 07/23/16 15:00 23:00 07:00 Intake Total 820 ml 1200 ml 1520 ml Output Total 900 ml 900 ml Balance 820 ml 300 ml 620 ml Exam Constitutional: well developed male lying in bed in no acute distress Eyes: EOMI, nl conjunctiva Neck: supple Respiratory: normal air movement, wet cough, supplemental oxygen in use Cardiovascular: regular rate and rhythm Gastrointestinal: soft, obese, non-tender, non distended Extremities: warm and dry, palpable pulses, 4+ pitting edema bilateral feet Skin: dressing bilateral feet, clean, dry and no visible drainage (please see nurses notes for detailed documentation) Neurology: lethargic but arouseable Results/Medications Result Diagram: 07/23/16 0544 07/23/16 0544 Results 24 hrs Laboratory Tests Test 07/23/16 05:44 White Blood Count 24.6 H Red Blood Count 3.01 L Hemoglobin 9.0 L Hematocrit 27.4 L Mean Corpuscular Volume 91.0 Mean Corpuscular Hemoglobin 29.9 Mean Corpuscular Hemoglobin Concent 32.8 Red Cell Distribution Width 13.8 Platelet Count 295 Mean Platelet Volume 9.3 Neutrophils % 89.0 H Lymphocytes % 5.0 L Monocytes % 3.0 Eosinophils % 3.0 Neutrophils # 21.9 H Lymphocytes # 1.2 Monocytes # 0.7 Eosinophils # 0.7 H Sodium Level 134 L Potassium Level 4.7 Chloride Level 110 Carbon Dioxide Level 19 L Anion Gap 10 Blood Urea Nitrogen 57 H Creatinine 3.29 H Glucose Level 102 Calcium Level 7.4 L Medications Current Medications Acetaminophen (Tylenol Tab) 500 mg Q6H PRN PO PAIN AND OR ELEVATED TEMP; Start 07/09/16 at 20:30 Ondansetron HCl (Zofran Inj) 4 mg Q6H PRN IV NAUSEA AND/OR VOMITING; Start at 20:30 Aspirin (Aspirin) 81 mg DAILY PO Last administered on 07/23/16 09:12; Admin Dose 81 MG; Start 07/10/16 at 09:00 Benztropine Mesylate (Cogentin) 1 mg BID PO Last administered on 07/23/16 09:13 ; Admin Dose 1 MG; Start 07/09/16 at 21:00 Finasteride (Proscar) 5 mg DAILY PO Last administered on 07/23/16 09:12; Admin Dose 5 MG; Start 07/10/16 at 09:00 Acetaminophen/ Hydrocodone Bitart ([place] (5/325)) 1 tab Q4 PRN PO SEVERE PAIN LEVEL 7-10 Last administered on 07/15/16 16:21; Admin Dose 1 TAB; Start at 20:30 Latanoprost (Xalatan) 1 drop QHS BOTH EYES Last administered on 07/22/16 22:37 ; Admin Dose 1 DROP; Start 07/09/16 at 21:00 Multivitamins Therapeutic (Theragran) 1 tab DAILY PO Last administered on 09:12; Admin Dose 1 TAB; Start 07/10/16 at 09:00 Olanzapine (Zyprexa) 5 mg QHS PO Last administered on 07/22/16 21:05; Admin Dose 5 MG; Start 07/09/16 at 21:00 Zinc Sulfate (Zinc Sulfate) 220 mg DAILY PO Last administered on 07/23/16 09:12 ; Admin Dose 220 MG; Start 07/10/16 at 09:00 Acetaminophen (Tylenol Supp) 650 mg Q6H PRN [place] ELEVATED TEMPERATURE Last administered on 07/10/16 09:51; Admin Dose 650 MG; Start 07/10/16 at 09:30 Collagenase (Santyl) 1 applic DAILY TOP Last administered on 07/23/16 09:14; Admin Dose 1 APPLIC; Start 07/10/16 at 14:00 Bisacodyl (Dulcolax) 10 mg BID PO Last administered on 07/23/16 09:13; Admin Dose 10 MG; Start 07/13/16 at 15:00 Benazepril HCl (Lotensin) 20 mg DAILY PO Last administered on 07/23/16 09:13; Admin Dose 20 MG; Start 07/16/16 at 09:00 Lorazepam (Ativan) 0.5 mg Q6H PRN IV ANXIETY Last administered on 07/18/16 09: 58; Admin Dose 0.5 MG; Start 07/16/16 at 23:30 Zolpidem Tartrate (Ambien) 2.5 mg HS PRN PO INSOMNIA; Start 07/17/16 at 19:00 Epoetin Zana (Epogen (Esrd)) 6,000 units TuThSa@17 SC Last administered on 18:02; Admin Dose 6,000 UNITS; Start 07/17/16 at 20:00 Miscellaneous Information This patient ellis... PRN PRN XX WOUND CARE; Start at 07:00 Linezolid (Zyvox 600mg/D5W (Pmx)) 300 ml @ 300 mls/hr Q12 IVPB Last administered on 07/23/16 09:14; Admin Dose 300 MLS/HR; Start 07/18/16 at 11:00 Lorazepam 0.5 mg 0.5 mg Q6H PRN PO ANXEITY Last administered on 07/19/16 22:28 ; Admin Dose 0.5 MG; Start 07/18/16 at 16:00 Potassium Chloride/Dextrose (D5W + KCl 20 Meq) 1,000 ml @ 80 mls/hr [id number] IV Last administered on 07/23/16 05:56; Admin Dose 80 MLS/HR; Start 07/18/16 at 16 :30 Clonidine (Catapres) 0.1 mg TID PO Last administered on 07/23/16 12:33; Admin Dose 0.1 MG; Start 07/19/16 at 09:00 Nifedipine (Procardia Xl) 30 mg QHS PO Last administered on 07/21/16 20:51; Admin Dose 30 MG; Start 07/20/16 at 21:00 Vancomycin HCl 125 mg 125 mg Q6 PO Last administered on 07/23/16 12:45; Admin Dose 125 MG; Start 07/21/16 at 19:00 Metronidazole (Flagyl 500 Mg (Pmx)) 100 ml @ 100 mls/hr Q8 IVPB Last administered on 07/23/16t 14:28; Admin Dose 100 MLS/HR; Start 07/22/16 at 16:30 Assessment/Plan Chief Complaint/Hosp Course - leukocytosis, possible early sepsis - infection of wounds of b/l heel due to MRSA, XR showed no bony abnormalities - unstageable decub of b/l heel - C diff colitis - s/p possible HCAP, Pt completed empiric cefepime (07/10/2016-07/19/2016); CXR on 07/20/2016 showed improvement. 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 Given by IV because Pt's often confused and PO intake can be affected. Will monitor CBC while Pt's on linezolid - continue PO vancomycin (02/14/2017-) while Pt's on antibiotics - continue IV Flagyl Care and management discussed with Zulya SANCHEZ and DR. Henderson Problems: MICAH MURRAY Jul 23, 2016 17:28
[2016-07-23 19:23] VITALS: BP 139/77; RESP 20
[2016-07-23] MEDS: LATANOPROST 0.005% 2.5 ML OPH BOTH EYES SCH (21:32)
[2016-07-23] MEDS: NIFEdipine (XL) 30 MG TAB PO SCH (21:33)
[2016-07-23] MEDS: LACTOBACILLUS RHAMNOSUS CAP PO SCH (21:33)
[2016-07-23] MEDS: OLANZAPINE 5 MG TAB PO SCH (21:33)
[2016-07-24] MEDS: metroNIDAZOLE 500 MG/NS (PMX) 100 ML IVPB SCH ×3 (06:13→23:23)
[2016-07-24] MEDS: VANCOMYCIN HCL 250 MG/5ML POSYG PO SCH ×3 (06:13→17:48)
[2016-07-24 06:23] LABS: ADD SCAN DIFF NO
[2016-07-24 06:31] LABS: BASOPHILS % 0.1 % (0.0-2.0); EOSINOPHILS # 0.5 10^3/ul (0.0-0.5); EOSINOPHILS % 2.4 % (0.0-7.0); HEMOGLOBIN 8.8 g/dl (14.0-18.0); LYMPHOCYTES # 1.6 10^3/ul (0.8-2.9); LYMPHOCYTES % 7.7 % (15.0-51.0); MEAN CORPUSCULAR HEMOGLOBIN 29.5 pg (29.0-33.0); MEAN CORPUSCULAR HGB CONC 32.6 g/dl (32.0-37.0); MEAN CORPUSCULAR VOLUME 90.6 fl (82.0-101.0); MEAN PLATELET VOLUME 8.9 fl (7.4-10.4); MONOCYTE # 1.2 10^3/ul (0.3-0.9); NEUTROPHIL # 17.1 10^3/ul (1.6-7.5); NEUTROPHILS % 83.2 % (39.0-77.0); PLATELET COUNT 296 10^3/UL (140-415); RED BLOOD COUNT 2.98 10^6/ul (4.70-6.10); WHITE BLOOD COUNT 20.6 10^3/ul (4.8-10.8)
[2016-07-24 07:01] LABS: CALCIUM 7.5 mg/dl (8.4-10.2); CREATININE 3.18 mg/dl (0.61-1.24); POTASSIUM 4.7 mmol/L (3.5-5.1)
--- NOTE | 2016-07-24 07:06 | PN ---
DATE: 07/23/2016 ADDENDUM I spoke with the patient's sister Carol and updated her regarding patient's worsening condition incl uding worsening leukocytosis and persistent acute kidney injury. All her questions answered. She w ould like to continue with current treatment plan. She also requested probiotics ____. Dictated By: RONNIE PEREZ/MEAGAN Conf#: [id number] DID#: [id number]
[2016-07-24 08:22] VITALS: BP 157/74; RESP 18
[2016-07-24] MEDS: PANTOPRAZOLE (EC) 40 MG TAB PO SCH (09:37)
[2016-07-24] MEDS: LACTOBACILLUS RHAMNOSUS CAP PO SCH ×2 (09:38→21:18)
[2016-07-24] MEDS: CALCIUM CARBONATE 750 MG CHEW TAB PO SCH ×3 (09:38→18:30)
[2016-07-24] MEDS: ASPIRIN 81 MG TAB PO SCH (09:38)
[2016-07-24] MEDS: BENZTROPINE 1 MG TAB PO SCH ×2 (09:39→21:19)
[2016-07-24] MEDS: BISACODYL (EC) 5 MG TAB PO SCH ×2 (09:40→21:18)
[2016-07-24] MEDS: FINASTERIDE 5 MG TAB PO SCH (09:40)
[2016-07-24] MEDS: ZINC SULFATE 220 MG CAP PO SCH (09:40)
[2016-07-24] MEDS: MULTIVITAMINS THERAPEUTIC TAB PO SCH (09:46)
[2016-07-24] MEDS: BENAZEPRIL 20 MG TAB PO SCH (09:48)
[2016-07-24] MEDS: COLLAGENASE 30 GM TUBE TOP SCH (09:48)
[2016-07-24] MEDS: D5W + KCL 20 MEQ 1,000 ML IV SCH (09:49)
[2016-07-24] MEDS: LINEZOLID 600 MG/D5W (PMX) 300 ML IVPB SCH ×2 (10:32→21:17)
[2016-07-24 14:27] LABS: ADD SCAN DIFF NO
[2016-07-24 14:28] LABS: BASOPHILS % 0.2 % (0.0-2.0); EOSINOPHILS # 0.3 10^3/ul (0.0-0.5); EOSINOPHILS % 1.6 % (0.0-7.0); HEMATOCRIT 25.7 % (42.0-52.0); HEMOGLOBIN 8.7 g/dl (14.0-18.0); LYMPHOCYTES # 1.2 10^3/ul (0.8-2.9); LYMPHOCYTES % 6.5 % (15.0-51.0); MEAN CORPUSCULAR HEMOGLOBIN 30.4 pg (29.0-33.0); MEAN CORPUSCULAR HGB CONC 33.9 g/dl (32.0-37.0); MEAN CORPUSCULAR VOLUME 89.9 fl (82.0-101.0); MEAN PLATELET VOLUME 8.6 fl (7.4-10.4); MONOCYTES % 5.2 % (0.0-11.0); NEUTROPHIL # 16.2 10^3/ul (1.6-7.5); NEUTROPHILS % 86.1 % (39.0-77.0); PLATELET COUNT 268 10^3/UL (140-415); RED BLOOD COUNT 2.86 10^6/ul (4.70-6.10); WHITE BLOOD COUNT 18.8 10^3/ul (4.8-10.8)
--- NOTE | 2016-07-24 14:51 | PN ---
Date/Time of Note Date/Time of Note DATE: 07/24/16 TIME: 13:32 Assessment/Plan VTE Prophylaxis VTE Prophylaxis Intervention: other Lines/Catheters IV Catheter Type (from Nrs): Peripheral IV Urinary Cath still in place: Yes Reason Cath still needed: urinary retention Assessment/Plan Assessment/Plan - Tongue-mild edema/redness. No dyspnea, facial swelling, hives noted. O2 st is 99% on 2L nc, afebrile,no shortness of breath noted - MVI daily - cont to monitor - C. difficile colitis. Dr. Henderson is following an infection disease consultation. Continue oral vancomycin and intravenous Flagyl. - Status post colonoscopy with notion of colitis ulcers. Continue to follow-up gastroenterology recommendations. - Infected wounds on bilateral lower extremities. Continue antibiotics per ID. - will get Medical Technologist Chemistry consult-Dr Baron notified - Acute kidney injury, etiology unknown. Dr. Srinivasan is following in nephrology consultation. - Acute metabolic encephalopathy, resolving. - Hypertension. Continue clonidine, Procardia and benazepril - Chronic obstructive pulmonary disease. - Benign prostatic hypertrophy. Continue Flomax. - Loculated pleural effusion, resolving. - Multiple decubitus ulcers. Continue current wound care - Acute cerebrovascular accident. Continue aspirin. - Dyslipidemia. Continue Lipitor. - Dementia with behavioral disturbance. Continue Zyprexa Further recommendations based on clinical course. Plan of care discussed with Dr. Rene. Subjective 24 Hr Interval Summary Free Text/Dictation mild edema/redness of tongue noted. No dyspnea, facial swelling, no hives, noted. O2 st is 99% on 2L nc, afebrile,no shortness of breath noted, seems comfortable. staff Cardiovascular: no complaints Gastrointestinal: no complaints Genitourinary: no complaints Musculoskeletal: no complaints Exam/Review of Systems Vital Signs Vitals Vital Signs Date Time Temp Pulse Resp B/P Pulse Ox O2 Delivery O2 Flow Rate FiO2 07/24/16 10:45 Nasal Cannula 2.0 07/24/16 08:22 98.5 61 18 157/74 91 Intake and Output 07/23/16 07/23/16 07/24/16 15:00 23:00 07:00 Intake Total 300 ml 1940 ml 400 ml Output Total 700 ml 1000 ml Balance 300 ml 1240 ml -600 ml Exam Constitutional: alert, well developed Neck: non-tender, supple Respiratory: diminished breath sounds Cardiovascular: nl pulses, regular rate and rhythm Gastrointestinal: non-tender, soft Musculoskeletal: muscle weakness, nl extremities to inspection Extremities: edema (LUE ) Neurological: confused, nl speech Lymph: nontender Results Result Diagram: 07/24/1617 07/24/1617 Results 24 hrs Laboratory Tests Test 07/24/16 05:17 White Blood Count 20.6 H Red Blood Count 2.98 L Hemoglobin 8.8 L Hematocrit 27.0 L Mean Corpuscular Volume 90.6 Mean Corpuscular Hemoglobin 29.5 Mean Corpuscular Hemoglobin Concent 32.6 Red Cell Distribution Width 14.0 Platelet Count 296 Mean Platelet Volume 8.9 Neutrophils % 83.2 H Lymphocytes % 7.7 L Monocytes % 6.0 Eosinophils % 2.4 Basophils % 0.1 Nucleated Red Blood Cells % 0.0 Neutrophils # 17.1 H Lymphocytes # 1.6 Monocytes # 1.2 H Eosinophils # 0.5 Basophils # 0.0 Nucleated Red Blood Cells # 0.0 Sodium Level 133 L Potassium Level 4.7 Chloride Level 110 Carbon Dioxide Level 16 L Anion Gap 12 Blood Urea Nitrogen 57 H Creatinine 3.18 H Glucose Level 92 Calcium Level 7.5 L Medications Medications Current Medications Acetaminophen (Tylenol Tab) 500 mg Q6H PRN PO PAIN AND OR ELEVATED TEMP; Start 07/09/16 at 20:30 Ondansetron HCl (Zofran Inj) 4 mg Q6H PRN IV NAUSEA AND/OR VOMITING; Start at 20:30 Aspirin (Aspirin) 81 mg DAILY PO Last administered on 07/24/16 09:38; Admin Dose 81 MG; Start 07/10/16 at 09:00 Benztropine Mesylate (Cogentin) 1 mg BID PO Last administered on 07/24/16 09:39 ; Admin Dose 1 MG; Start 07/09/16 at 21:00 Finasteride (Proscar) 5 mg DAILY PO Last administered on 07/24/16 09:40; Admin Dose 5 MG; Start 07/10/16 at 09:00 Acetaminophen/ Hydrocodone Bitart ([place] (5/325)) 1 tab Q4 PRN PO SEVERE PAIN LEVEL 7-10 Last administered on 07/15/16 16:21; Admin Dose 1 TAB; Start at 20:30 Latanoprost (Xalatan) 1 drop QHS BOTH EYES Last administered on 07/23/16 21:32 ; Admin Dose 1 DROP; Start 07/09/16 at 21:00 Multivitamins Therapeutic (Theragran) 1 tab DAILY PO Last administered on 09:46; Admin Dose 1 TAB; Start 07/10/16 at 09:00 Olanzapine (Zyprexa) 5 mg QHS PO Last administered on 07/23/16 21:33; Admin Dose 5 MG; Start 07/09/16 at 21:00 Zinc Sulfate (Zinc Sulfate) 220 mg DAILY PO Last administered on 07/24/16 09:40 ; Admin Dose 220 MG; Start 07/10/16 at 09:00 Acetaminophen (Tylenol Supp) 650 mg Q6H PRN [place] ELEVATED TEMPERATURE Last administered on 07/10/16 09:51; Admin Dose 650 MG; Start 07/10/16 at 09:30 Collagenase (Santyl) 1 applic DAILY TOP Last administered on 07/24/16 09:48; Admin Dose 1 APPLIC; Start 07/10/16 at 14:00 Bisacodyl (Dulcolax) 10 mg BID PO Last administered on 07/24/16 09:40; Admin Dose 10 MG; Start 07/13/16 at 15:00 Benazepril HCl (Lotensin) 20 mg DAILY PO Last administered on 07/24/16 09:48; Admin Dose 20 MG; Start 07/16/16 at 09:00 Lorazepam (Ativan) 0.5 mg Q6H PRN IV ANXIETY Last administered on 07/18/16 09: 58; Admin Dose 0.5 MG; Start 07/16/16 at 23:30 Zolpidem Tartrate (Ambien) 2.5 mg HS PRN PO INSOMNIA; Start 07/17/16 at 19:00 Epoetin Zana (Epogen (Esrd)) 6,000 units TuThSa@17 SC Last administered on 18:02; Admin Dose 6,000 UNITS; Start 07/17/16 at 20:00 Miscellaneous Information This patient ellis... PRN PRN XX WOUND CARE; Start at 07:00 Linezolid (Zyvox 600mg/D5W (Pmx)) 300 ml @ 300 mls/hr Q12 IVPB Last administered on 07/24/16 10:32; Admin Dose 300 MLS/HR; Start 07/18/16 at 11:00 Lorazepam (Ativan) 0.5 mg Q6H PRN PO ANXEITY Last administered on 07/19/16 22: 28; Admin Dose 0.5 MG; Start 07/18/16 at 16:00 Clonidine (Catapres) 0.1 mg TID PO Last administered on 07/24/16 12:53; Admin Dose 0.1 MG; Start 07/19/16 at 09:00 Nifedipine (Procardia Xl) 30 mg QHS PO Last administered on 07/23/16 21:33; Admin Dose 30 MG; Start 07/20/16 at 21:00 Vancomycin HCl 125 mg 125 mg Q6 PO Last administered on 07/24/16 12:52; Admin Dose 125 MG; Start 07/21/16 at 19:00 Metronidazole (Flagyl 500 Mg (Pmx)) 100 ml @ 100 mls/hr Q8 IVPB Last administered on 07/24/16 06:13; Admin Dose 100 MLS/HR; Start 07/22/16 at 16:30 Lactobacillus Acidophilus/ Rhamnosus (Culturelle) 1 cap BID PO Last administered on 07/24/16 09:38; Admin Dose 1 CAP; Start 07/23/16 at 21:00 ISAEL CRYSTAL Jul 24, 2016 13:42
--- NOTE | 2016-07-24 16:33 | CONS ---
Date/Time of Note Date/Time of Note DATE: 07/24/16 TIME: 16:32 Assessment/Plan Assessment/Plan Chief Complaint/Hosp Course - leukocytosis, possible early sepsis - infection of wounds of b/l heel due to MRSA, XR showed no bony abnormalities - unstageable decub of b/l heel - C diff colitis - s/p possible HCAP, Pt completed empiric cefepime (07/10/2016-07/19/2016); CXR on 07/20/2016 showed improvement. 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 Given by IV because Pt's often confused and PO intake can be affected. Will monitor CBC while Pt's on linezolid - continue PO vancomycin (02/14/2017-) while Pt's on antibiotics - continue IV Flagyl Problems: Consultation Date/Type/Reason Admit Date/Time July 09, 2016 at 12:24 Type of Consultation: Infectious Disease f/u Referring Provider: RONNIE PATEL MD Exam/Review of Systems Vital Signs Vitals Vital Signs Date Time Temp Pulse Resp B/P Pulse Ox O2 Delivery O2 Flow Rate FiO2 07/24/16 10:45 Nasal Cannula 2.0 07/24/16 08:22 98.5 61 18 157/74 91 Intake and Output 07/23/16 07/23/16 07/24/16 15:00 23:00 07:00 Intake Total 300 ml 1940 ml 400 ml Output Total 700 ml 1000 ml Balance 300 ml 1240 ml -600 ml Exam Constitutional: alert, oriented, well developed Psych: nl mood/affect, no complaints Head: atraumatic, normocephalic Eyes: EOMI, PERRL, nl conjunctiva, nl lids, nl sclera ENMT: nl external ears & nose, nl lips & teeth, nl nasal mucosa & septum Respiratory: clear to auscultation, normal air movement Cardiovascular: nl pulses, regular rate and rhythm Gastrointestinal: nl liver, spleen, non-tender, soft Results Result Diagram: 07/24/16 1415 07/24/16 0517 Results 24 hrs Laboratory Tests Test 07/24/16 05:17 07/24/16 14:15 White Blood Count 20.6 H 18.8 H Red Blood Count 2.98 L 2.86 L Hemoglobin 8.8 L 8.7 L Hematocrit 27.0 L 25.7 L Mean Corpuscular Volume 90.6 89.9 Mean Corpuscular Hemoglobin 29.5 30.4 Mean Corpuscular Hemoglobin Concent 32.6 33.9 Red Cell Distribution Width 14.0 14.0 Platelet Count 296 268 Mean Platelet Volume 8.9 8.6 Neutrophils % 83.2 H 86.1 H Lymphocytes % 7.7 L 6.5 L Monocytes % 6.0 5.2 Eosinophils % 2.4 1.6 Basophils % 0.1 0.2 Nucleated Red Blood Cells % 0.0 0.0 Neutrophils # 17.1 H 16.2 H Lymphocytes # 1.6 1.2 Monocytes # 1.2 H 1.0 H Eosinophils # 0.5 0.3 Basophils # 0.0 0.0 Nucleated Red Blood Cells # 0.0 0.0 Sodium Level 133 L Potassium Level 4.7 Chloride Level 110 Carbon Dioxide Level 16 L Anion Gap 12 Blood Urea Nitrogen 57 H Creatinine 3.18 H Glucose Level 92 Calcium Level 7.5 L Medications Medications Current Medications Acetaminophen (Tylenol Tab) 500 mg Q6H PRN PO PAIN AND OR ELEVATED TEMP; Start 07/09/16 at 20:30 Ondansetron HCl (Zofran Inj) 4 mg Q6H PRN IV NAUSEA AND/OR VOMITING; Start at 20:30 Aspirin (Aspirin) 81 mg DAILY PO Last administered on 07/24/16 09:38; Admin Dose 81 MG; Start 07/10/16 at 09:00 Benztropine Mesylate (Cogentin) 1 mg BID PO Last administered on 07/24/16 09:39 ; Admin Dose 1 MG; Start 07/09/16 at 21:00 Finasteride (Proscar) 5 mg DAILY PO Last administered on 07/24/16 09:40; Admin Dose 5 MG; Start 07/10/16 at 09:00 Acetaminophen/ Hydrocodone Bitart ([place] (5/325)) 1 tab Q4 PRN PO SEVERE PAIN LEVEL 7-10 Last administered on 07/15/16 16:21; Admin Dose 1 TAB; Start at 20:30 Latanoprost (Xalatan) 1 drop QHS BOTH EYES Last administered on 07/23/16 21:32 ; Admin Dose 1 DROP; Start 07/09/16 at 21:00 Multivitamins Therapeutic (Theragran) 1 tab DAILY PO Last administered on 09:46; Admin Dose 1 TAB; Start 07/10/16 at 09:00 Olanzapine (Zyprexa) 5 mg QHS PO Last administered on 07/23/16 21:33; Admin Dose 5 MG; Start 07/09/16 at 21:00 Zinc Sulfate (Zinc Sulfate) 220 mg DAILY PO Last administered on 07/24/16 09:40 ; Admin Dose 220 MG; Start 07/10/16 at 09:00 Acetaminophen (Tylenol Supp) 650 mg Q6H PRN [place] ELEVATED TEMPERATURE Last administered on 07/10/16 09:51; Admin Dose 650 MG; Start 07/10/16 at 09:30 Collagenase (Santyl) 1 applic DAILY TOP Last administered on 07/24/16 09:48; Admin Dose 1 APPLIC; Start 07/10/16 at 14:00 Bisacodyl (Dulcolax) 10 mg BID PO Last administered on 07/24/16 09:40; Admin Dose 10 MG; Start 07/13/16 at 15:00 Benazepril HCl (Lotensin) 20 mg DAILY PO Last administered on 07/24/16 09:48; Admin Dose 20 MG; Start 07/16/16 at 09:00 Lorazepam (Ativan) 0.5 mg Q6H PRN IV ANXIETY Last administered on 07/18/16 09: 58; Admin Dose 0.5 MG; Start 07/16/16 at 23:30 Zolpidem Tartrate (Ambien) 2.5 mg HS PRN PO INSOMNIA; Start 07/17/16 at 19:00 Epoetin Zana (Epogen (Esrd)) 6,000 units TuThSa@17 SC Last administered on 18:02; Admin Dose 6,000 UNITS; Start 07/17/16 at 20:00 Miscellaneous Information This patient ellis... PRN PRN XX WOUND CARE; Start at 07:00 Linezolid (Zyvox 600mg/D5W (Pmx)) 300 ml @ 300 mls/hr Q12 IVPB Last administered on 07/24/16 10:32; Admin Dose 300 MLS/HR; Start 07/18/16 at 11:00 Lorazepam (Ativan) 0.5 mg Q6H PRN PO ANXEITY Last administered on 07/19/16 22: 28; Admin Dose 0.5 MG; Start 07/18/16 at 16:00 Clonidine (Catapres) 0.1 mg TID PO Last administered on 07/24/16 12:53; Admin Dose 0.1 MG; Start 07/19/16 at 09:00 Nifedipine (Procardia Xl) 30 mg QHS PO Last administered on 07/23/16 21:33; Admin Dose 30 MG; Start 07/20/16 at 21:00 Vancomycin HCl 125 mg 125 mg Q6 PO Last administered on 07/24/16 12:52; Admin Dose 125 MG; Start 07/21/16 at 19:00 Metronidazole (Flagyl 500 Mg (Pmx)) 100 ml @ 100 mls/hr Q8 IVPB Last administered on 07/24/16 13:59; Admin Dose 100 MLS/HR; Start 07/22/16 at 16:30 Lactobacillus Acidophilus/ Rhamnosus (Culturelle) 1 cap BID PO Last administered on 07/24/16 09:38; Admin Dose 1 CAP; Start 07/23/16 at 21:00 ALVA GEE MD Jul 24, 2016 16:33
--- NOTE | 2016-07-24 17:23 | RADRPT ---
PROCEDURE: US DVT. CLINICAL INDICATION: Pain and swelling. Evaluate for deep venous thrombosis. TECHNIQUE: Multiple longitudinal and transverse images of the the left upper extremity veins were obtained with yee scale and color Doppler imaging. 2D grayscale measurements with compression, col or Doppler flow, and augmentation was performed. COMPARISON: No prior studies are available for comparison. FINDINGS: The left jugular vein, subclavian vein, axillary vein, and brachial veins are normally compressible throughout. Color flow demonstrates normal filling of the vessel. Normal waveforms are visualized and there is normal response to augmentation. The left cephalic, radial and ulnar veins were interr ogated and appear normal. IMPRESSION: 1. No evidence of a deep vein thrombosis involving the left upper extremity. RPTAT: [facility] Physician Valentine Date Time Electronically viewed and signed by Physician Valentine on 07/24/2016 17:23 /
[2016-07-24] MEDS: EPOETIN 3000 UNITS/1 ML INJ (ESRD) SC SCH (17:49)
[2016-07-24 20:06] VITALS: BP 152/72; RESP 18
[2016-07-24] MEDS: OLANZAPINE 5 MG TAB PO SCH (21:18)
[2016-07-24] MEDS: NIFEdipine (XL) 30 MG TAB PO SCH (21:19)
[2016-07-24] MEDS: LATANOPROST 0.005% 2.5 ML OPH BOTH EYES SCH (21:29)
--- NOTE | 2016-07-24 21:56 | CONS ---
Date/Time of Note Date/Time of Note DATE: 07/24/16 TIME: 21:49 Assessment/Plan Assessment/Plan Chief Complaint/Hosp Course Pt needs close f/u lab in AM Problems: Additional Assessment/Plan CXR has improved UA /4 is still abnormal Must conisder intra-renal abcess Will request renal Ct /US Further plans per ID Cont'd Hospitalization Reason: Increase epo for anemia Consultation Date/Type/Reason Admit Date/Time July 09, 2016 at 12:24 Initial Consult Date 07/11/16 Type of Consultation: renal Referring Provider: RONNIE PATEL MD 24 HR Interval Summary Free Text/Dictation Pt remains a difficult problem! Exam/Review of Systems Vital Signs Vitals Vital Signs Date Time Temp Pulse Resp B/P Pulse Ox O2 Delivery O2 Flow Rate FiO2 07/24/16 20:06 98.0 75 18 152/72 94 07/24/16 10:45 Nasal Cannula 2.0 Intake and Output 07/23/16 07/23/16 07/24/16 15:00 23:00 07:00 Intake Total 300 ml 1940 ml 400 ml Output Total 700 ml 1000 ml Balance 300 ml 1240 ml -600 ml Exam Constitutional: oriented, other (poorly communicative), well developed Psych: nl mood/affect, no complaints Head: atraumatic, normocephalic Eyes: EOMI, PERRL, nl conjunctiva, nl lids, nl sclera ENMT: nl external ears & nose, nl lips & teeth, nl nasal mucosa & septum Neck: non-tender, supple Respiratory: clear to auscultation, normal air movement Cardiovascular: nl pulses, regular rate and rhythm Gastrointestinal: nl liver, spleen, non-tender, soft Musculoskeletal: nl extremities to inspection, nl gait and stance Extremities: normal pulses 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, nl mental status, nl speech, nl strength Skin: nl turgor, No rash or lesions Lymph: nl lymph nodes Results Creat clrearance is 22 ml/min Hct has dropped somewhat WBC remains high Result Diagram: 07/24/16 1415 07/24/16 0517 Results 24 hrs Laboratory Tests Test 07/24/16 05:17 07/24/16 14:15 White Blood Count 20.6 H 18.8 H Red Blood Count 2.98 L 2.86 L Hemoglobin 8.8 L 8.7 L Hematocrit 27.0 L 25.7 L Mean Corpuscular Volume 90.6 89.9 Mean Corpuscular Hemoglobin 29.5 30.4 Mean Corpuscular Hemoglobin Concent 32.6 33.9 Red Cell Distribution Width 14.0 14.0 Platelet Count 296 268 Mean Platelet Volume 8.9 8.6 Neutrophils % 83.2 H 86.1 H Lymphocytes % 7.7 L 6.5 L Monocytes % 6.0 5.2 Eosinophils % 2.4 1.6 Basophils % 0.1 0.2 Nucleated Red Blood Cells % 0.0 0.0 Neutrophils # 17.1 H 16.2 H Lymphocytes # 1.6 1.2 Monocytes # 1.2 H 1.0 H Eosinophils # 0.5 0.3 Basophils # 0.0 0.0 Nucleated Red Blood Cells # 0.0 0.0 Sodium Level 133 L Potassium Level 4.7 Chloride Level 110 Carbon Dioxide Level 16 L Anion Gap 12 Blood Urea Nitrogen 57 H Creatinine 3.18 H Glucose Level 92 Calcium Level 7.5 L Medications Medications Current Medications Acetaminophen (Tylenol Tab) 500 mg Q6H PRN PO PAIN AND OR ELEVATED TEMP; Start 07/09/16 at 20:30 Ondansetron HCl (Zofran Inj) 4 mg Q6H PRN IV NAUSEA AND/OR VOMITING; Start at 20:30 Aspirin (Aspirin) 81 mg DAILY PO Last administered on 07/24/16 09:38; Admin Dose 81 MG; Start 07/10/16 at 09:00 Benztropine Mesylate (Cogentin) 1 mg BID PO Last administered on 07/24/16 09:39 ; Admin Dose 1 MG; Start 07/09/16 at 21:00 Finasteride (Proscar) 5 mg DAILY PO Last administered on 07/24/16 09:40; Admin Dose 5 MG; Start 07/10/16 at 09:00 Acetaminophen/ Hydrocodone Bitart ([place] (5/325)) 1 tab Q4 PRN PO SEVERE PAIN LEVEL 7-10 Last administered on 07/15/16 16:21; Admin Dose 1 TAB; Start at 20:30 Latanoprost (Xalatan) 1 drop QHS BOTH EYES Last administered on 07/23/16 21:32 ; Admin Dose 1 DROP; Start 07/09/16 at 21:00 Multivitamins Therapeutic (Theragran) 1 tab DAILY PO Last administered on 09:46; Admin Dose 1 TAB; Start 07/10/16 at 09:00 Olanzapine (Zyprexa) 5 mg QHS PO Last administered on 07/23/16 21:33; Admin Dose 5 MG; Start 07/09/16 at 21:00 Zinc Sulfate (Zinc Sulfate) 220 mg DAILY PO Last administered on 07/24/16 09:40 ; Admin Dose 220 MG; Start 07/10/16 at 09:00 Acetaminophen (Tylenol Supp) 650 mg Q6H PRN [place] ELEVATED TEMPERATURE Last administered on 07/10/16 09:51; Admin Dose 650 MG; Start 07/10/16 at 09:30 Collagenase (Santyl) 1 applic DAILY TOP Last administered on 07/24/16 09:48; Admin Dose 1 APPLIC; Start 07/10/16 at 14:00 Bisacodyl (Dulcolax) 10 mg BID PO Last administered on 07/24/16 09:40; Admin Dose 10 MG; Start 07/13/16 at 15:00 Benazepril HCl (Lotensin) 20 mg DAILY PO Last administered on 07/24/16 09:48; Admin Dose 20 MG; Start 07/16/16 at 09:00 Lorazepam (Ativan) 0.5 mg Q6H PRN IV ANXIETY Last administered on 07/18/16 09: 58; Admin Dose 0.5 MG; Start 07/16/16 at 23:30 Zolpidem Tartrate (Ambien) 2.5 mg HS PRN PO INSOMNIA; Start 07/17/16 at 19:00 Epoetin Zana (Epogen (Esrd)) 6,000 units TuThSa@17 SC Last administered on 17:49; Admin Dose 6,000 UNITS; Start 07/17/16 at 20:00 Miscellaneous Information This patient ellis... PRN PRN XX WOUND CARE; Start at 07:00 Linezolid (Zyvox 600mg/D5W (Pmx)) 300 ml @ 300 mls/hr Q12 IVPB Last administered on 07/24/16 10:32; Admin Dose 300 MLS/HR; Start 07/18/16 at 11:00 Lorazepam (Ativan) 0.5 mg Q6H PRN PO ANXEITY Last administered on 07/19/16 22: 28; Admin Dose 0.5 MG; Start 07/18/16 at 16:00 Clonidine (Catapres) 0.1 mg TID PO Last administered on 07/24/16 12:53; Admin Dose 0.1 MG; Start 07/19/16 at 09:00 Nifedipine (Procardia Xl) 30 mg QHS PO Last administered on 07/23/16 21:33; Admin Dose 30 MG; Start 07/20/16 at 21:00 Vancomycin HCl 125 mg 125 mg Q6 PO Last administered on 07/24/16 17:48; Admin Dose 125 MG; Start 07/21/16 at 19:00 Metronidazole (Flagyl 500 Mg (Pmx)) 100 ml @ 100 mls/hr Q8 IVPB Last administered on 07/24/16 13:59; Admin Dose 100 MLS/HR; Start 07/22/16 at 16:30 Lactobacillus Acidophilus/ Rhamnosus (Culturelle) 1 cap BID PO Last administered on 07/24/16 09:38; Admin Dose 1 CAP; Start 07/23/16 at 21:00 JUANA AYALA MD Jul 24, 2016 21:56
--- NOTE | 2016-07-24 23:45 | RADRPT ---
PROCEDURE: ULTRASOUND RETROPERITONEUM CLINICAL INDICATION: 71-year-old male with renal insufficiency. TECHNIQUE: Multiple sonographic images of the retroperitoneum were obtained. The images were revi ewed on a PACS workstation. COMPARISON: CT abdomen/pelvis July 09, 2016. FINDINGS: The kidneys are echogenic bilaterally. The right kidney measures 13.1 x 6.7 x 5.1 cm. There is a rig ht lower pole renal cyst measuring approximately to 3.0 x 2.8 cm. The left kidney measures 13.5 x 6 .0 x 4.1 cm. There is no evidence for obstructive uropathy. There is a Avila catheter identified w ithin the decompressed bladder. There is an avascular suprapubic echogenic focus measuring 9.2 x 4. 1 cm of unknown etiology. IMPRESSION: 1. Bilaterally echogenic kidneys suggestive of medical renal disease. 2. No sonographic evidence for obstructive uropathy. 3. Right renal cyst. 4. Avila catheter within the decompressed bladder. 5. Suprapubic avascular echogenic focus of unknown etiology. This may represent blood products. Cl inical correlation is necessary. .Angel Paz MD, Date Time Electronically viewed and signed by .Angel Paz MD, on 07/24/2016 23:45 .M/
[2016-07-25] MEDS: VANCOMYCIN HCL 250 MG/5ML POSYG PO SCH ×4 (00:31→19:01)
[2016-07-25 05:53] LABS: CALCIUM 7.5 mg/dl (8.4-10.2); CREATININE 3.37 mg/dl (0.61-1.24); POTASSIUM 4.9 mmol/L (3.5-5.1)
[2016-07-25] MEDS: metroNIDAZOLE 500 MG/NS (PMX) 100 ML IVPB SCH ×2 (06:36→14:33)
[2016-07-25 07:44] VITALS: BP 149/85; RESP 18
[2016-07-25] MEDS: PANTOPRAZOLE (EC) 40 MG TAB PO SCH (10:06)
[2016-07-25] MEDS: FINASTERIDE 5 MG TAB PO SCH (10:06)
[2016-07-25] MEDS: ZINC SULFATE 220 MG CAP PO SCH (10:06)
[2016-07-25] MEDS: BISACODYL (EC) 5 MG TAB PO SCH ×2 (10:06→21:58)
[2016-07-25] MEDS: MULTIVITAMINS THERAPEUTIC TAB PO SCH (10:06)
[2016-07-25] MEDS: ASPIRIN 81 MG TAB PO SCH (10:07)
[2016-07-25] MEDS: LACTOBACILLUS RHAMNOSUS CAP PO SCH ×2 (10:07→21:59)
[2016-07-25] MEDS: CALCIUM CARBONATE 750 MG CHEW TAB PO SCH ×3 (10:07→19:01)
[2016-07-25] MEDS: BENAZEPRIL 20 MG TAB PO SCH (10:09)
[2016-07-25] MEDS: COLLAGENASE 30 GM TUBE TOP SCH (10:10)
[2016-07-25] MEDS: LINEZOLID 600 MG/D5W (PMX) 300 ML IVPB SCH ×2 (10:15→21:58)
--- NOTE | 2016-07-25 12:23 | CONS ---
[facility]IST 07/25/16 1223: Date/Time of Note Date/Time of Note DATE: 07/25/16 TIME: 12:15 Assessment/Plan Assessment/Plan Chief Complaint/Hosp Course - leukocytosis, possible early sepsis - infection of wounds of b/l heel due to MRSA, enterococcus sp and corynebacter jeikeium (grp JK); XR showed no bony abnormalities - unstageable decub of b/l heel - C diff colitis - s/p possible HCAP, Pt completed empiric cefepime (07/10/2016-07/19/2016); CXR on 07/20/2016 showed improvement. 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 Given by IV because Pt's often confused and PO intake can be affected. Will monitor CBC while Pt's on linezolid - continue PO vancomycin (07/15/2016-) while Pt's on antibiotics - continue IV Flagyl (07/22/2016-) Management d/w DANIEL Quick and Dr. Henderson Problems: Consultation Date/Type/Reason Admit Date/Time July 09, 2016 at 12:24 Initial Consult Date 07/11/16 Type of Consultation: Infectious Disease Referring Provider: RONNIE PATEL MD 24 HR Interval Summary Free Text/Dictation Unable to perform ROS d/t baseline dementia. No acute issues per d/w nursing staff. Subjective hx not possible: pt non-verbal Exam/Review of Systems Vital Signs Vitals Vital Signs Date Time Temp Pulse Resp B/P Pulse Ox O2 Delivery O2 Flow Rate FiO2 07/25/16 07:46 2.0 07/25/16 07:44 98.6 73 18 149/85 97 07/24/16 20:30 Nasal Cannula Intake and Output 07/24/16 07/24/16 07/25/16 15:00 23:00 07:00 Intake Total 780 ml 920 ml 200 ml Output Total 500 ml 1100 ml Balance 780 ml 420 ml -900 ml Exam Constitutional: well developed, non-verbal Head: atraumatic, normocephalic Eyes: nl sclera Neck: supple Respiratory: diminished breath sounds Cardiovascular: regular rate and rhythm Gastrointestinal: non-tender, soft Genitourinary: Avila catheter present Extremities: No cyanosis, No edema Neurological: confused Skin: nl turgor, other (see nurses note and photo in chart for details - bilateral heel and coccyx decubiti) Results Result Diagram: 07/24/16 1415 07/25/16 0515 Results 24 hrs Laboratory Tests Test 07/24/16 14:15 07/25/16 05:15 White Blood Count 18.8 H Red Blood Count 2.86 L Hemoglobin 8.7 L Hematocrit 25.7 L Mean Corpuscular Volume 89.9 Mean Corpuscular Hemoglobin 30.4 Mean Corpuscular Hemoglobin Concent 33.9 Red Cell Distribution Width 14.0 Platelet Count 268 Mean Platelet Volume 8.6 Neutrophils % 86.1 H Lymphocytes % 6.5 L Monocytes % 5.2 Eosinophils % 1.6 Basophils % 0.2 Nucleated Red Blood Cells % 0.0 Neutrophils # 16.2 H Lymphocytes # 1.2 Monocytes # 1.0 H Eosinophils # 0.3 Basophils # 0.0 Nucleated Red Blood Cells # 0.0 Sodium Level 133 L Potassium Level 4.9 Chloride Level 111 H Carbon Dioxide Level 16 L Anion Gap 11 Blood Urea Nitrogen 59 H Creatinine 3.37 H Glucose Level 91 Calcium Level 7.5 L Medications Medications Current Medications Acetaminophen (Tylenol Tab) 500 mg Q6H PRN PO PAIN AND OR ELEVATED TEMP; Start 07/09/16 at 20:30 Ondansetron HCl (Zofran Inj) 4 mg Q6H PRN IV NAUSEA AND/OR VOMITING; Start at 20:30 Aspirin (Aspirin) 81 mg DAILY PO Last administered on 07/25/16 10:07; Admin Dose 81 MG; Start 07/10/16 at 09:00 Benztropine Mesylate (Cogentin) 1 mg BID PO Last administered on 07/24/16 21:19 ; Admin Dose 1 MG; Start 07/09/16 at 21:00 Finasteride (Proscar) 5 mg DAILY PO Last administered on 07/25/16 10:06; Admin Dose 5 MG; Start 07/10/16 at 09:00 Acetaminophen/ Hydrocodone Bitart ([place] (5/325)) 1 tab Q4 PRN PO SEVERE PAIN LEVEL 7-10 Last administered on 07/15/16 16:21; Admin Dose 1 TAB; Start at 20:30 Latanoprost (Xalatan) 1 drop QHS BOTH EYES Last administered on 07/24/16 21:29 ; Admin Dose 1 DROP; Start 07/09/16 at 21:00 Multivitamins Therapeutic (Theragran) 1 tab DAILY PO Last administered on 10:06; Admin Dose 1 TAB; Start 07/10/16 at 09:00 Olanzapine (Zyprexa) 5 mg QHS PO Last administered on 07/24/16 21:18; Admin Dose 5 MG; Start 07/09/16 at 21:00 Zinc Sulfate (Zinc Sulfate) 220 mg DAILY PO Last administered on 07/25/16 10:06 ; Admin Dose 220 MG; Start 07/10/16 at 09:00 Acetaminophen (Tylenol Supp) 650 mg Q6H PRN [place] ELEVATED TEMPERATURE Last administered on 07/10/16 09:51; Admin Dose 650 MG; Start 07/10/16 at 09:30 Collagenase (Santyl) 1 applic DAILY TOP Last administered on 07/25/16 10:10; Admin Dose 1 APPLIC; Start 07/10/16 at 14:00 Bisacodyl (Dulcolax) 10 mg BID PO Last administered on 07/25/16 10:06; Admin Dose 10 MG; Start 07/13/16 at 15:00 Benazepril HCl (Lotensin) 20 mg DAILY PO Last administered on 07/25/16 10:09; Admin Dose 20 MG; Start 07/16/16 at 09:00 Lorazepam (Ativan) 0.5 mg Q6H PRN IV ANXIETY Last administered on 07/18/16 09: 58; Admin Dose 0.5 MG; Start 07/16/16 at 23:30 Zolpidem Tartrate (Ambien) 2.5 mg HS PRN PO INSOMNIA; Start 07/17/16 at 19:00 Epoetin Zana (Epogen (Esrd)) 6,000 units TuThSa@17 SC Last administered on 17:49; Admin Dose 6,000 UNITS; Start 07/17/16 at 20:00 Miscellaneous Information This patient ellis... PRN PRN XX WOUND CARE; Start at 07:00 Linezolid (Zyvox 600mg/D5W (Pmx)) 300 ml @ 300 mls/hr Q12 IVPB Last administered on 07/25/16 10:15; Admin Dose 300 MLS/HR; Start 07/18/16 at 11:00 Lorazepam (Ativan) 0.5 mg Q6H PRN PO ANXEITY Last administered on 07/19/16 22: 28; Admin Dose 0.5 MG; Start 07/18/16 at 16:00 Clonidine (Catapres) 0.1 mg TID PO Last administered on 07/25/16 10:09; Admin Dose 0.1 MG; Start 07/19/16 at 09:00 Nifedipine (Procardia Xl) 30 mg QHS PO Last administered on 07/24/16 21:19; Admin Dose 30 MG; Start 07/20/16 at 21:00 Vancomycin HCl 125 mg 125 mg Q6 PO Last administered on 07/25/16 06:36; Admin Dose 125 MG; Start 07/21/16 at 19:00 Metronidazole (Flagyl 500 Mg (Pmx)) 100 ml @ 100 mls/hr Q8 IVPB Last administered on 07/25/16 06:36; Admin Dose 100 MLS/HR; Start 07/22/16 at 16:30 Lactobacillus Acidophilus/ Rhamnosus (Culturelle) 1 cap BID PO Last administered on 07/25/16 10:07; Admin Dose 1 CAP; Start 07/23/16 at 21:00 JERO GALAN M.D. 08/02/163: Assessment/Plan Assessment/Plan Additional Assessment/Plan Shanelle attestation: I discussed the management with LING Pink and agree with above Exam/Review of Systems Results Result Diagram: 07/24/16 1415 07/25/16 0515 WADE PINK NP Jul 25, 2016 12:23 JERO GALAN M.D. Aug 02, 2016 21:13
[2016-07-25] MEDS: BENZTROPINE 1 MG TAB PO SCH ×2 (12:36→21:58)
[2016-07-25 12:39] VITALS: BP 143/70; PULSE 70; RESP 18
--- NOTE | 2016-07-25 14:46 | CONS ---
Date/Time of Note Date/Time of Note DATE: 07/25/16 TIME: 14:46 Consultation Date/Type/Reason Admit Date/Time July 09, 2016 at 12:24 Type of Consultation: Renal Referring Provider: RONNIE PATEL MD Exam/Review of Systems Vital Signs Vitals Vital Signs Date Time Temp Pulse Resp B/P Pulse Ox O2 Delivery O2 Flow Rate FiO2 07/25/16 12:39 70 18 143/70 07/25/16 08:20 Nasal Cannula 2.0 07/25/16 07:44 98.6 97 Intake and Output 07/24/16 07/24/16 07/25/16 15:00 23:00 07:00 Intake Total 780 ml 920 ml 200 ml Output Total 500 ml 1100 ml Balance 780 ml 420 ml -900 ml Exam Constitutional: No distress Results Result Diagram: 07/24/16 1415 07/25/16 0515 Results 24 hrs Laboratory Tests Test 07/25/16 05:15 Sodium Level 133 L Potassium Level 4.9 Chloride Level 111 H Carbon Dioxide Level 16 L Anion Gap 11 Blood Urea Nitrogen 59 H Creatinine 3.37 H Glucose Level 91 Calcium Level 7.5 L Medications Medications Current Medications Acetaminophen (Tylenol Tab) 500 mg Q6H PRN PO PAIN AND OR ELEVATED TEMP; Start 07/09/16 at 20:30 Ondansetron HCl (Zofran Inj) 4 mg Q6H PRN IV NAUSEA AND/OR VOMITING; Start at 20:30 Aspirin (Aspirin) 81 mg DAILY PO Last administered on 07/25/16 10:07; Admin Dose 81 MG; Start 07/10/16 at 09:00 Benztropine Mesylate (Cogentin) 1 mg BID PO Last administered on 07/25/16 12:36 ; Admin Dose 1 MG; Start 07/09/16 at 21:00 Finasteride (Proscar) 5 mg DAILY PO Last administered on 07/25/16 10:06; Admin Dose 5 MG; Start 07/10/16 at 09:00 Acetaminophen/ Hydrocodone Bitart ([place] (5/325)) 1 tab Q4 PRN PO SEVERE PAIN LEVEL 7-10 Last administered on 07/15/16 16:21; Admin Dose 1 TAB; Start at 20:30 Latanoprost (Xalatan) 1 drop QHS BOTH EYES Last administered on 07/24/16 21:29 ; Admin Dose 1 DROP; Start 07/09/16 at 21:00 Multivitamins Therapeutic (Theragran) 1 tab DAILY PO Last administered on 10:06; Admin Dose 1 TAB; Start 07/10/16 at 09:00 Olanzapine (Zyprexa) 5 mg QHS PO Last administered on 07/24/16 21:18; Admin Dose 5 MG; Start 07/09/16 at 21:00 Zinc Sulfate (Zinc Sulfate) 220 mg DAILY PO Last administered on 07/25/16 10:06 ; Admin Dose 220 MG; Start 07/10/16 at 09:00 Acetaminophen (Tylenol Supp) 650 mg Q6H PRN [place] ELEVATED TEMPERATURE Last administered on 07/10/16 09:51; Admin Dose 650 MG; Start 07/10/16 at 09:30 Collagenase (Santyl) 1 applic DAILY TOP Last administered on 07/25/16 10:10; Admin Dose 1 APPLIC; Start 07/10/16 at 14:00 Bisacodyl (Dulcolax) 10 mg BID PO Last administered on 07/25/16 10:06; Admin Dose 10 MG; Start 07/13/16 at 15:00 Benazepril HCl (Lotensin) 20 mg DAILY PO Last administered on 07/25/16 10:09; Admin Dose 20 MG; Start 07/16/16 at 09:00 Lorazepam (Ativan) 0.5 mg Q6H PRN IV ANXIETY Last administered on 07/18/16 09: 58; Admin Dose 0.5 MG; Start 07/16/16 at 23:30 Zolpidem Tartrate (Ambien) 2.5 mg HS PRN PO INSOMNIA; Start 07/17/16 at 19:00 Epoetin Zana (Epogen (Esrd)) 6,000 units TuThSa@17 SC Last administered on 17:49; Admin Dose 6,000 UNITS; Start 07/17/16 at 20:00 Miscellaneous Information This patient ellis... PRN PRN XX WOUND CARE; Start at 07:00 Linezolid (Zyvox 600mg/D5W (Pmx)) 300 ml @ 300 mls/hr Q12 IVPB Last administered on 07/25/16 10:15; Admin Dose 300 MLS/HR; Start 07/18/16 at 11:00 Lorazepam (Ativan) 0.5 mg Q6H PRN PO ANXEITY Last administered on 07/19/16 22: 28; Admin Dose 0.5 MG; Start 07/18/16 at 16:00 Clonidine (Catapres) 0.1 mg TID PO Last administered on 07/25/16 12:39; Admin Dose 0.1 MG; Start 07/19/16 at 09:00 Nifedipine (Procardia Xl) 30 mg QHS PO Last administered on 07/24/16 21:19; Admin Dose 30 MG; Start 07/20/16 at 21:00 Vancomycin HCl 125 mg 125 mg Q6 PO Last administered on 07/25/16 12:36; Admin Dose 125 MG; Start 07/21/16 at 19:00 Metronidazole (Flagyl 500 Mg (Pmx)) 100 ml @ 100 mls/hr Q8 IVPB Last administered on 07/25/16 14:33; Admin Dose 100 MLS/HR; Start 07/22/16 at 16:30 Lactobacillus Acidophilus/ Rhamnosus (Culturelle) 1 cap BID PO Last administered on 07/25/16 10:07; Admin Dose 1 CAP; Start 07/23/16 at 21:00 Procedures Procedures PROCEDURE: ULTRASOUND RETROPERITONEUM CLINICAL INDICATION: 71-year-old male with renal insufficiency. TECHNIQUE: Multiple sonographic images of the retroperitoneum were obtained. The images were reviewed on a PACS workstation. COMPARISON: CT abdomen/pelvis July 09, 2016. FINDINGS: The kidneys are echogenic bilaterally. The right kidney measures 13.1 x 6.7 x 5.1 cm. There is a right lower pole renal cyst measuring approximately to 3.0 x 2.8 cm. The left kidney measures 13.5 x 6.0 x 4.1 cm. There is no evidence for obstructive uropathy. There is a Avila catheter identified within the decompressed bladder. There is an avascular suprapubic echogenic focus measuring 9.2 x 4.1 cm of unknown etiology. IMPRESSION: 1. Bilaterally echogenic kidneys suggestive of medical renal disease. 2. No sonographic evidence for obstructive uropathy. 3. Right renal cyst. 4. Avila catheter within the decompressed bladder. 5. Suprapubic avascular echogenic focus of unknown etiology. This may represent blood products. Clinical correlation is necessary. .Angel Paz MD, MD Date Time Electronically viewed and signed by .Angel Paz MD, MD on 07/24/2016 23:45 TACOS GREEN MD Jul 25, 2016 14:46
--- NOTE | 2016-07-25 17:07 | PN ---
Date/Time of Note Date/Time of Note DATE: 07/25/16 TIME: 17:03 Assessment/Plan VTE Prophylaxis VTE Prophylaxis Intervention: SCD's Lines/Catheters IV [facility]from [facility] Saline Lock Urinary Cath still in place: Yes Reason Cath still needed: urinary retention Assessment/Plan Chief Complaint/Hosp Course Patient is afebrile, lethargic but easily arousable, remains hemodynamically stable. Assessment/Plan - C. difficile colitis. Dr. Henderson is following an infection disease consultation. Continue oral vancomycin and intravenous Flagyl. - Colitis ulcers per colonoscopy, continue to follow-up gastroenterology recommendations. - Infected wounds on bilateral lower extremities. Continue antibiotics per ID. - Acute kidney injury, etiology unknown. Dr. Srinivasan is following in nephrology consultation. - Acute metabolic encephalopathy, resolving. - Hypertension. Continue clonidine, Procardia and benazepril - Chronic obstructive pulmonary disease. - Benign prostatic hypertrophy. Continue Flomax. - Loculated pleural effusion, resolving. - Multiple decubitus ulcers. Continue current wound care - Acute cerebrovascular accident. Continue aspirin. - Dyslipidemia. Continue Lipitor. - Dementia with behavioral disturbance. Continue Zyprexa. Further recommendations based on clinical course. Plan of care discussed with Dr. Rene. Problems: Exam/Review of Systems Vital Signs Vitals Vital Signs Date Time Temp Pulse Resp B/P Pulse Ox O2 Delivery O2 Flow Rate FiO2 07/25/16 12:39 70 18 143/70 07/25/16 08:20 Nasal Cannula 2.0 07/25/16 07:44 98.6 97 Intake and Output 07/24/16 07/24/16 07/25/16 15:00 23:00 07:00 Intake Total 780 ml 920 ml 200 ml Output Total 500 ml 1100 ml Balance 780 ml 420 ml -900 ml Exam Constitutional: alert, frail Head: normocephalic Respiratory: normal air movement Cardiovascular: nl pulses Gastrointestinal: non-tender, soft Extremities: normal pulses, other Skin: other (Bilateral lower extremities wounds) Results Result Diagram: 07/24/16 1415 07/25/16 0515 Results 24 hrs Laboratory Tests Test 07/25/16 05:15 Sodium Level 133 L Potassium Level 4.9 Chloride Level 111 H Carbon Dioxide Level 16 L Anion Gap 11 Blood Urea Nitrogen 59 H Creatinine 3.37 H Glucose Level 91 Calcium Level 7.5 L Medications Medications Current Medications Acetaminophen (Tylenol Tab) 500 mg Q6H PRN PO PAIN AND OR ELEVATED TEMP; Start 07/09/16 at 20:30 Ondansetron HCl (Zofran Inj) 4 mg Q6H PRN IV NAUSEA AND/OR VOMITING; Start at 20:30 Aspirin (Aspirin) 81 mg DAILY PO Last administered on 07/25/16 10:07; Admin Dose 81 MG; Start 07/10/16 at 09:00 Benztropine Mesylate (Cogentin) 1 mg BID PO Last administered on 07/25/16 12:36 ; Admin Dose 1 MG; Start 07/09/16 at 21:00 Finasteride (Proscar) 5 mg DAILY PO Last administered on 07/25/16 10:06; Admin Dose 5 MG; Start 07/10/16 at 09:00 Acetaminophen/ Hydrocodone Bitart ([place] (5/325)) 1 tab Q4 PRN PO SEVERE PAIN LEVEL 7-10 Last administered on 07/15/16 16:21; Admin Dose 1 TAB; Start at 20:30 Latanoprost (Xalatan) 1 drop QHS BOTH EYES Last administered on 07/24/16 21:29 ; Admin Dose 1 DROP; Start 07/09/16 at 21:00 Multivitamins Therapeutic (Theragran) 1 tab DAILY PO Last administered on 10:06; Admin Dose 1 TAB; Start 07/10/16 at 09:00 Olanzapine (Zyprexa) 5 mg QHS PO Last administered on 07/24/16 21:18; Admin Dose 5 MG; Start 07/09/16 at 21:00 Zinc Sulfate (Zinc Sulfate) 220 mg DAILY PO Last administered on 07/25/16 10:06 ; Admin Dose 220 MG; Start 07/10/16 at 09:00 Acetaminophen (Tylenol Supp) 650 mg Q6H PRN [place] ELEVATED TEMPERATURE Last administered on 07/10/16 09:51; Admin Dose 650 MG; Start 07/10/16 at 09:30 Collagenase (Santyl) 1 applic DAILY TOP Last administered on 07/25/16 10:10; Admin Dose 1 APPLIC; Start 07/10/16 at 14:00 Bisacodyl (Dulcolax) 10 mg BID PO Last administered on 07/25/16 10:06; Admin Dose 10 MG; Start 07/13/16 at 15:00 Benazepril HCl (Lotensin) 20 mg DAILY PO Last administered on 07/25/16 10:09; Admin Dose 20 MG; Start 07/16/16 at 09:00 Lorazepam (Ativan) 0.5 mg Q6H PRN IV ANXIETY Last administered on 07/18/16 09: 58; Admin Dose 0.5 MG; Start 07/16/16 at 23:30 Zolpidem Tartrate (Ambien) 2.5 mg HS PRN PO INSOMNIA; Start 07/17/16 at 19:00 Epoetin Zana (Epogen (Esrd)) 6,000 units TuThSa@17 SC Last administered on 17:49; Admin Dose 6,000 UNITS; Start 07/17/16 at 20:00 Miscellaneous Information This patient ellis... PRN PRN XX WOUND CARE; Start at 07:00 Linezolid (Zyvox 600mg/D5W (Pmx)) 300 ml @ 300 mls/hr Q12 IVPB Last administered on 07/25/16 10:15; Admin Dose 300 MLS/HR; Start 07/18/16 at 11:00 Lorazepam (Ativan) 0.5 mg Q6H PRN PO ANXEITY Last administered on 07/19/16 22: 28; Admin Dose 0.5 MG; Start 07/18/16 at 16:00 Clonidine (Catapres) 0.1 mg TID PO Last administered on 07/25/16 12:39; Admin Dose 0.1 MG; Start 07/19/16 at 09:00 Nifedipine (Procardia Xl) 30 mg QHS PO Last administered on 07/24/16 21:19; Admin Dose 30 MG; Start 07/20/16 at 21:00 Vancomycin HCl 125 mg 125 mg Q6 PO Last administered on 07/25/16 12:36; Admin Dose 125 MG; Start 07/21/16 at 19:00 Metronidazole (Flagyl 500 Mg (Pmx)) 100 ml @ 100 mls/hr Q8 IVPB Last administered on 07/25/16 14:33; Admin Dose 100 MLS/HR; Start 07/22/16 at 16:30 Lactobacillus Acidophilus/ Rhamnosus (Culturelle) 1 cap BID PO Last administered on 07/25/16t 10:07; Admin Dose 1 CAP; Start 07/23/16 at 21:00 ALE MCCONNELL Jul 25, 2016 17:07
[2016-07-25 19:42] VITALS: BP 144/65; RESP 17
[2016-07-25] MEDS: LATANOPROST 0.005% 2.5 ML OPH BOTH EYES SCH (21:57)
[2016-07-25] MEDS: NIFEdipine (XL) 30 MG TAB PO SCH (21:59)
[2016-07-25] MEDS: OLANZAPINE 5 MG TAB PO SCH (21:59)
[2016-07-26] MEDS: VANCOMYCIN HCL 250 MG/5ML POSYG PO SCH ×4 (00:41→19:02)
[2016-07-26] MEDS: metroNIDAZOLE 500 MG/NS (PMX) 100 ML IVPB SCH ×4 (00:41→21:45)
[2016-07-26 06:06] LABS: ADD SCAN DIFF NO
[2016-07-26 06:27] LABS: BASOPHILS % 0.1 % (0.0-2.0); EOSINOPHILS # 0.3 10^3/ul (0.0-0.5); EOSINOPHILS % 2.1 % (0.0-7.0); HEMATOCRIT 23.3 % (42.0-52.0); HEMOGLOBIN 7.5 g/dl (14.0-18.0); LYMPHOCYTES # 1.6 10^3/ul (0.8-2.9); LYMPHOCYTES % 11.7 % (15.0-51.0); MEAN CORPUSCULAR HEMOGLOBIN 29.3 pg (29.0-33.0); MEAN CORPUSCULAR HGB CONC 32.2 g/dl (32.0-37.0); MEAN PLATELET VOLUME 8.6 fl (7.4-10.4); MONOCYTE # 0.8 10^3/ul (0.3-0.9); NEUTROPHIL # 11.1 10^3/ul (1.6-7.5); NEUTROPHILS % 79.7 % (39.0-77.0); PLATELET COUNT 262 10^3/UL (140-415); RED BLOOD COUNT 2.56 10^6/ul (4.70-6.10); RED CELL DISTRIBUTION WIDTH 14.5 % (11.5-14.5); WHITE BLOOD COUNT 13.9 10^3/ul (4.8-10.8)
[2016-07-26 07:21] LABS: CALCIUM 7.6 mg/dl (8.4-10.2); CREATININE 3.47 mg/dl (0.61-1.24); POTASSIUM 4.6 mmol/L (3.5-5.1)
[2016-07-26 07:59] VITALS: BP 124/60; RESP 24
[2016-07-26] MEDS: BISACODYL (EC) 5 MG TAB PO SCH ×2 (08:43→20:37)
[2016-07-26] MEDS: BENZTROPINE 1 MG TAB PO SCH ×2 (08:43→20:37)
[2016-07-26] MEDS: ASPIRIN 81 MG TAB PO SCH (08:43)
[2016-07-26] MEDS: COLLAGENASE 30 GM TUBE TOP SCH (08:43)
[2016-07-26] MEDS: CALCIUM CARBONATE 750 MG CHEW TAB PO SCH ×3 (08:43→19:07)
[2016-07-26] MEDS: MULTIVITAMINS THERAPEUTIC TAB PO SCH (08:44)
[2016-07-26] MEDS: PANTOPRAZOLE (EC) 40 MG TAB PO SCH (08:44)
[2016-07-26] MEDS: ASCORBIC ACID 500 MG TAB PO SCH (08:44)
[2016-07-26] MEDS: ZINC SULFATE 220 MG CAP PO SCH (08:44)
[2016-07-26] MEDS: LACTOBACILLUS RHAMNOSUS CAP PO SCH ×2 (08:44→20:37)
[2016-07-26] MEDS: BENAZEPRIL 20 MG TAB PO SCH (08:50)
[2016-07-26] MEDS: FINASTERIDE 5 MG TAB PO SCH (08:52)
[2016-07-26] MEDS: LINEZOLID 600 MG/D5W (PMX) 300 ML IVPB SCH ×2 (08:53→20:42)
--- NOTE | 2016-07-26 08:53 | RADRPT ---
PROCEDURE: Bilateral lower extremity arterial ultrasound CLINICAL INDICATION: Lower extremity pain and claudication. Heel ulcers. TECHNIQUE: Garnica-scale and color images with doppler of the lower extremities were obtained COMPARISON: None available FINDINGS: The bilateral common femoral artery, proximal superficial femoral arteries and distal superficial fe moral arteries were not imaged in this study. Antegrade flow is identified in the visualized arteri es of the bilateral lower extremities. Triphasic waveforms are seen in the visualized arteries of th e lower extremities. Rt Dist SFA 142 cm/s Rt Chaya 155 cm/s Rt Post Tibial 84 cm/s Rt Dorsalis Pedis 105 cm/s Rt REYES 1.2 Lt Dist SFA 76 cm/s Lt Chaya 109 cm/s Lt Post Tibial 65 cm/s Lt Dorsalis Pedis 100 cm/s Lt REYES 1.2 IMPRESSION: Limited exam with the bilateral common femoral arteries, proximal superficial femoral arteries and d istal superficial femoral arteries not imaged in this exam secondary to patient positioning. If drew racterization of these vessels is needed CTA could be helpful. No visualized hemodynamically significant lesion in the visualized arteries of both lower extremitie s. RPTAT: AA .Musa Padilla MD, Date Time Electronically viewed and signed by .Musa Padilla MD, on 07/26/2016 08:53 .P/
--- NOTE | 2016-07-26 11:29 | PN ---
Date/Time of Note Date/Time of Note DATE: 07/26/16 TIME: 11:28 Assessment/Plan VTE Prophylaxis VTE Prophylaxis Intervention: other Lines/Catheters [facility] Saline Lock Urinary Cath still in place: Yes Reason Cath still needed: skin wounds contaminated by urine Assessment/Plan Chief Complaint/Hosp Course - Acute kidney injury, etiology unknown. Dr. Keating is following in nephrology consultation. - Acute metabolic encephalopathy, resolving. - Hypertension. - Chronic obstructive pulmonary disease. - Benign prostatic hypertrophy. Continue Flomax. - Loculated pleural effusion. Continue to monitor chest x-ray. - Multiple decubitus ulcers. Continue current wound care - Acute cerebrovascular accident. Continue aspirin. - Dyslipidemia. Continue Lipitor. - Dementia with behavioral disturbance. Continue Zyprexa. Problems: Subjective 24 Hr Interval Summary Free Text/Dictation Patient is resting comfortably Exam/Review of Systems Vital Signs Vitals Vital Signs Date Time Temp Pulse Resp B/P Pulse Ox O2 Delivery O2 Flow Rate FiO2 07/26/16 07:59 98.1 24 124/60 95 07/26/16 01:00 2.0 07/26/16 01:00 78 Nasal Cannula Intake and Output 07/25/16 07/25/16 07/26/16 15:00 23:00 07:00 Intake Total 400 ml 560 ml 600 ml Output Total 600 ml 740 ml Balance 400 ml -40 ml -140 ml Exam Constitutional: well developed Head: atraumatic, normocephalic Neck: supple Respiratory: clear to auscultation Cardiovascular: regular rate and rhythm Gastrointestinal: non-tender, soft Extremities: normal pulses Results Result Diagram: 07/26/16 0534 07/26/16 0534 Results 24 hrs Laboratory Tests Test 07/26/16 05:34 White Blood Count 13.9 #H Red Blood Count 2.56 L Hemoglobin 7.5 L Hematocrit 23.3 L Mean Corpuscular Volume 91.0 Mean Corpuscular Hemoglobin 29.3 Mean Corpuscular Hemoglobin Concent 32.2 Red Cell Distribution Width 14.5 Platelet Count 262 Mean Platelet Volume 8.6 Neutrophils % 79.7 H Lymphocytes % 11.7 L Monocytes % 6.0 Eosinophils % 2.1 Basophils % 0.1 Nucleated Red Blood Cells % 0.0 Neutrophils # 11.1 H Lymphocytes # 1.6 Monocytes # 0.8 Eosinophils # 0.3 Basophils # 0.0 Nucleated Red Blood Cells # 0.0 Sodium Level 134 L Potassium Level 4.6 Chloride Level 111 H Carbon Dioxide Level 16 L Anion Gap 12 Blood Urea Nitrogen 63 H Creatinine 3.47 H Glucose Level 89 Calcium Level 7.6 L Medications Medications Current Medications Acetaminophen (Tylenol Tab) 500 mg Q6H PRN PO PAIN AND OR ELEVATED TEMP; Start 07/09/16 at 20:30 Ondansetron HCl (Zofran Inj) 4 mg Q6H PRN IV NAUSEA AND/OR VOMITING; Start at 20:30 Aspirin (Aspirin) 81 mg DAILY PO Last administered on 07/26/16 08:43; Admin Dose 81 MG; Start 07/10/16 at 09:00 Benztropine Mesylate (Cogentin) 1 mg BID PO Last administered on 07/26/16 08: 43; Admin Dose 1 MG; Start 07/09/16 at 21:00 Finasteride (Proscar) 5 mg DAILY PO Last administered on 07/26/16 08:52; Admin Dose 5 MG; Start 07/10/16 at 09:00 Acetaminophen/ Hydrocodone Bitart ([place] (5/325)) 1 tab Q4 PRN PO SEVERE PAIN LEVEL 7-10 Last administered on 07/15/16 16:21; Admin Dose 1 TAB; Start at 20:30 Latanoprost (Xalatan) 1 drop QHS BOTH EYES Last administered on 07/25/16 21:57 ; Admin Dose 1 DROP; Start 07/09/16 at 21:00 Multivitamins Therapeutic (Theragran) 1 tab DAILY PO Last administered on 08:44; Admin Dose 1 TAB; Start 07/10/16 at 09:00 Olanzapine (Zyprexa) 5 mg QHS PO Last administered on 07/25/16 21:59; Admin Dose 5 MG; Start 07/09/16 at 21:00 Zinc Sulfate (Zinc Sulfate) 220 mg DAILY PO Last administered on 07/26/16 08: 44; Admin Dose 220 MG; Start 07/10/16 at 09:00 Acetaminophen (Tylenol Supp) 650 mg Q6H PRN [place] ELEVATED TEMPERATURE Last administered on 07/10/16 09:51; Admin Dose 650 MG; Start 07/10/16 at 09:30 Collagenase (Santyl) 1 applic DAILY TOP Last administered on 07/26/16 08:43; Admin Dose 1 APPLIC; Start 07/10/16 at 14:00 Bisacodyl (Dulcolax) 10 mg BID PO Last administered on 07/26/16 08:43; Admin Dose 10 MG; Start 07/13/16 at 15:00 Benazepril HCl (Lotensin) 20 mg DAILY PO Last administered on 07/26/16 08:50; Admin Dose 20 MG; Start 07/16/16 at 09:00 Lorazepam (Ativan) 0.5 mg Q6H PRN IV ANXIETY Last administered on 07/18/16 09: 58; Admin Dose 0.5 MG; Start 07/16/16 at 23:30 Zolpidem Tartrate (Ambien) 2.5 mg HS PRN PO INSOMNIA; Start 07/17/16 at 19:00 Epoetin Zana (Epogen (Esrd)) 6,000 units TuThSa@17 SC Last administered on 17:49; Admin Dose 6,000 UNITS; Start 07/17/16 at 20:00 Miscellaneous Information This patient ellis... PRN PRN XX WOUND CARE; Start at 07:00 Linezolid (Zyvox 600mg/D5W (Pmx)) 300 ml @ 300 mls/hr Q12 IVPB Last administered on 07/26/16 08:53; Admin Dose 300 MLS/HR; Start 07/18/16 at 11:00 Lorazepam (Ativan) 0.5 mg Q6H PRN PO ANXEITY Last administered on 07/19/16 22: 28; Admin Dose 0.5 MG; Start 07/18/16 at 16:00 Clonidine (Catapres) 0.1 mg TID PO Last administered on 07/26/16 08:45; Admin Dose 0.1 MG; Start 07/19/16 at 09:00 Nifedipine (Procardia Xl) 30 mg QHS PO Last administered on 07/25/16 21:59; Admin Dose 30 MG; Start 07/20/16 at 21:00 Vancomycin HCl 125 mg 125 mg Q6 PO Last administered on 07/26/16 05:58; Admin Dose 125 MG; Start 07/21/16 at 19:00 Metronidazole (Flagyl 500 Mg (Pmx)) 100 ml @ 100 mls/hr Q8 IVPB Last administered on 07/26/16 06:05; Admin Dose 100 MLS/HR; Start 07/22/16 at 16:30 Lactobacillus Acidophilus/ Rhamnosus (Culturelle) 1 cap BID PO Last administered on 07/26/16 08:44; Admin Dose 1 CAP; Start 07/23/16 at 21:00 Ascorbic Acid (Vitamin C) 500 mg DAILY PO Last administered on 07/26/16 08:44 ; Admin Dose 500 MG; Start 07/26/16 at 09:00 WINIFRED CHAVEZ Jul 26, 2016 11:28
--- NOTE | 2016-07-26 15:23 | CONS ---
DATE OF ADMISSION: 07/09/2016 DATE OF CONSULTATION: 07/26/2016 TYPE OF CONSULTATION: Surgical. REQUESTING PHYSICIAN: Dr. Rene. REASON FOR CONSULTATION: Evaluation and management of bilateral heel decubitus ulcers and also sacrococcygeal decubitus ulcer. HISTORY OF PRESENT ILLNESS: Thank you, Dr. Rene, for the consultation. This is a 71-year-old gentleman who apparently was admitted on 07/09/2016 because of acute renal failure. The patient actually was a resident of a alf and therefore was transferred to the emergency room here on that day to be evaluated and was admitted with the following impression: 1. Acute kidney injury, etiology unknown. The patient's CT scan of the abdomen did not reveal any hydronephrosis. The patient was admitted to be given an IV fluid trial and also further evaluation, echocardiogram, and a nephrology consult also was obtained. 2. Hypertension. Was started on Zestril and has been managed by the colleagues. 3. Chronic obstructive pulmonary disease. 4. Benign prostatic hypertrophy, which Flomax was restarted for the patient. 5. There was evidence of a loculated pleural effusion on the chest x-ray and CT scan. 6. Multiple decubitus ulcers, which have been managed by help from the wound care nurse and now they are getting a consultation from surgery. 7. Acute cerebrovascular accident. The patient was started on a baby aspirin. 8. The patient also was admitted dyslipidemia. Continue Lipitor. 9. Dementia with behavioral disturbances. They have continued for the patient Zyprexa medication. The patient has been treated for the past 2 weeks here and now they are requesting a consultation for evaluation of the bed sores. Review of systems and past medical history as mentioned in the admission diagnosis. MEDICATIONS: Please refer to MAR. SOCIAL HISTORY: The patient has been smoking in the past. PHYSICAL EXAMINATION: GENERAL: Today, patient is lying down on the bed, appears to be awake and alert , follows simple commands, but does responds very slowly to verbal stimuli. Apparently no complaints, but does not follow commands that well. VITAL SIGNS: Temperature recorded at 98.1, heart rate 78, respirations 20, blood pressure 124/60, saturations 94% on 2 liters nasal cannula. LABORATORY: Today WBC 13,900, with 79% segmented. This is all shift to the left. Hemoglobin is 7.5, hematocrit 23.3. It has been low, but today is lower than every other day. Platelet count is 262. Chemistry: Sodium is 134, slightly low. Potassium is 4.6, normal . Chloride 111, slightly elevated. BUN is 63, creatinine 3.47. Glucose 89. Calcium 7.6. Coagulation was done on , PT is 15.3, INR is 1.20. HEAD: Normocephalic. Eyes: Pupils equally round, reactive to light and accommodation. The patient's mouth is open, he does not close it. The mucosa is dry, completely. NECK: Trachea is in the midline. No thyroid enlargement. No adenopathy. HEART: Regular rhythm. No murmur. LUNGS: Clear to auscultation. ABDOMEN: Soft. Appears to be edema of the skin over the abdomen and over the lower extremities, namely the patient has some degree of anasarca. GENITALIA: External genitalia, Avila catheter is in place. There is swelling of the scrotum. EXTREMITIES: Lower extremity pretibial edema is trace, but over the feet, dorsal aspect, there is 2+ pitting edema. Dorsalis pedis and posterior tibial pulses are not palpable to me, but the skin is warm. There is necrotic skin of the bilateral heels, mainly in the central part. Periphery is clear now. Apparently, this had been unstageable before and still is unstageable in the center, but granulation tissue is forming around the central part of the wound, which is now covered with necrotic skin and this part is unstageable on both sides. Also the sacrococcygeal area, there is a small area of the wound which is probably a stage 2, and deep tissue injury present. There is no necrosis visible. The area is about 1.5 x 2 cm only. ASSESSMENT: A 71-year-old gentleman who was admitted with diagnoses of: 1. Acute kidney injury. 2. Hypertension. 3. Chronic obstructive pulmonary disease. 4. Benign prostatic hypertrophy. 5. Loculated pleural effusion. 6. Multiple decubiti. 7. Acute cerebrovascular accident. 8. Dyslipidemia. 9. Dementia, with behavioral disturbances. The patient has been treated with multiple medications, including antibiotics recently. As I understand, the patient has developed diarrhea and the C. difficile has been positive. In regards to the plan regarding the decubitus ulcers, I recommend to continue application of Santyl covered with nonadherent dressing applied with copious amounts of Santyl on both feet and cover them. This should be done b.i.d. and for the sacrococcygeal wound, just simple medication of Santyl covered with nonadherent dressing. The feet have to be offloaded and the patient's position generally has to be changed from side-to- side every 2 hours if possible to prevent further aggravation of the sacrococcygeal wound. In some stage, we may have to proceed with surgical debridement of the unstageable heel wounds and I will observe it from now on every day and then will make a decision if there is a suitable time for doing debridement. Thank you for the consultation. Continue to follow the patient along with other colleagues. Dictated By: LISSETH RIVERS/MEAGAN Conf#: [id number] DID#: [id number] MTDD
--- NOTE | 2016-07-26 15:26 | CONS ---
Date/Time of Note Date/Time of Note DATE: 07/26/16 TIME: 15:24 Assessment/Plan Assessment/Plan Additional Assessment/Plan 1. Acute kidney injury, Pre- Susanna, Avila no signs of obstructive Uropathy, Hx of BPH.- Non Oliguric, CKD Stage V 2. Hypertension. Normotensive at this time. 3. Chronic obstructive pulmonary disease. 4. Benign prostatic hypertrophy. 5. Loculated pleural effusion. 6. Multiple decubiti 7. Cerebrovascular accident. 8. Dyslipidemia. 9. Dementia with behavioral disturbance. 10. Metabolic Acidosis-stable Renal function is stable, IVFs restarted. Not adequate PO intake Pt is non oliguric, K nml, Na stable. Cont current Rx and plan No acute indication for HD at this time Consultation Date/Type/Reason Admit Date/Time July 09, 2016 at 12:24 Type of Consultation: Renal Referring Provider: RONNIE PATEL MD 24 HR Interval Summary Free Text/Dictation No new complaints Constitutional: requiring O2 Exam/Review of Systems Vital Signs Vitals Vital Signs Date Time Temp Pulse Resp B/P Pulse Ox O2 Delivery O2 Flow Rate FiO2 07/26/16 08:30 Nasal Cannula 2 07/26/16 07:59 98.1 24 124/60 95 07/26/16 01:00 78 Intake and Output 07/25/16 07/25/16 07/26/16 15:00 23:00 07:00 Intake Total 400 ml 560 ml 600 ml Output Total 600 ml 740 ml Balance 400 ml -40 ml -140 ml Exam Constitutional: alert, No distress ENMT: mucosa pink and moist Neck: No jvd Respiratory: crackles/rales, No diminished breath sounds, No labored breathing Cardiovascular: regular rate and rhythm, No edema Gastrointestinal: non-tender, soft Neurological: No lethargic Skin: No diaphoresis Results Result Diagram: 07/26/16 0534 07/26/16 0534 Results 24 hrs Laboratory Tests Test 07/26/16 05:34 White Blood Count 13.9 #H Red Blood Count 2.56 L Hemoglobin 7.5 L Hematocrit 23.3 L Mean Corpuscular Volume 91.0 Mean Corpuscular Hemoglobin 29.3 Mean Corpuscular Hemoglobin Concent 32.2 Red Cell Distribution Width 14.5 Platelet Count 262 Mean Platelet Volume 8.6 Neutrophils % 79.7 H Lymphocytes % 11.7 L Monocytes % 6.0 Eosinophils % 2.1 Basophils % 0.1 Nucleated Red Blood Cells % 0.0 Neutrophils # 11.1 H Lymphocytes # 1.6 Monocytes # 0.8 Eosinophils # 0.3 Basophils # 0.0 Nucleated Red Blood Cells # 0.0 Sodium Level 134 L Potassium Level 4.6 Chloride Level 111 H Carbon Dioxide Level 16 L Anion Gap 12 Blood Urea Nitrogen 63 H Creatinine 3.47 H Glucose Level 89 Calcium Level 7.6 L Medications Medications Current Medications Acetaminophen (Tylenol Tab) 500 mg Q6H PRN PO PAIN AND OR ELEVATED TEMP; Start 07/09/16 at 20:30 Ondansetron HCl (Zofran Inj) 4 mg Q6H PRN IV NAUSEA AND/OR VOMITING; Start at 20:30 Aspirin (Aspirin) 81 mg DAILY PO Last administered on 07/26/16 08:43; Admin Dose 81 MG; Start 07/10/16 at 09:00 Benztropine Mesylate (Cogentin) 1 mg BID PO Last administered on 07/26/16 08: 43; Admin Dose 1 MG; Start 07/09/16 at 21:00 Finasteride (Proscar) 5 mg DAILY PO Last administered on 07/26/16 08:52; Admin Dose 5 MG; Start 07/10/16 at 09:00 Acetaminophen/ Hydrocodone Bitart ([place] (5/325)) 1 tab Q4 PRN PO SEVERE PAIN LEVEL 7-10 Last administered on 07/15/16 16:21; Admin Dose 1 TAB; Start at 20:30 Latanoprost (Xalatan) 1 drop QHS BOTH EYES Last administered on 07/25/16 21:57 ; Admin Dose 1 DROP; Start 07/09/16 at 21:00 Multivitamins Therapeutic (Theragran) 1 tab DAILY PO Last administered on 08:44; Admin Dose 1 TAB; Start 07/10/16 at 09:00 Olanzapine (Zyprexa) 5 mg QHS PO Last administered on 07/25/16 21:59; Admin Dose 5 MG; Start 07/09/16 at 21:00 Zinc Sulfate (Zinc Sulfate) 220 mg DAILY PO Last administered on 07/26/16 08: 44; Admin Dose 220 MG; Start 07/10/16 at 09:00 Acetaminophen (Tylenol Supp) 650 mg Q6H PRN [place] ELEVATED TEMPERATURE Last administered on 07/10/16 09:51; Admin Dose 650 MG; Start 07/10/16 at 09:30 Collagenase (Santyl) 1 applic DAILY TOP Last administered on 07/26/16 08:43; Admin Dose 1 APPLIC; Start 07/10/16 at 14:00 Bisacodyl (Dulcolax) 10 mg BID PO Last administered on 07/26/16 08:43; Admin Dose 10 MG; Start 07/13/16 at 15:00 Benazepril HCl (Lotensin) 20 mg DAILY PO Last administered on 07/26/16 08:50; Admin Dose 20 MG; Start 07/16/16 at 09:00 Lorazepam (Ativan) 0.5 mg Q6H PRN IV ANXIETY Last administered on 07/18/16 09: 58; Admin Dose 0.5 MG; Start 07/16/16 at 23:30 Zolpidem Tartrate (Ambien) 2.5 mg HS PRN PO INSOMNIA; Start 07/17/16 at 19:00 Epoetin Zana (Epogen (Esrd)) 6,000 units TuThSa@17 SC Last administered on 17:49; Admin Dose 6,000 UNITS; Start 07/17/16 at 20:00 Miscellaneous Information This patient ellis... PRN PRN XX WOUND CARE; Start at 07:00 Linezolid (Zyvox 600mg/D5W (Pmx)) 300 ml @ 300 mls/hr Q12 IVPB Last administered on 07/26/16 08:53; Admin Dose 300 MLS/HR; Start 07/18/16 at 11:00 Lorazepam (Ativan) 0.5 mg Q6H PRN PO ANXEITY Last administered on 07/19/16 22: 28; Admin Dose 0.5 MG; Start 07/18/16 at 16:00 Clonidine (Catapres) 0.1 mg TID PO Last administered on 07/26/16 12:34; Admin Dose 0.1 MG; Start 07/19/16 at 09:00 Nifedipine (Procardia Xl) 30 mg QHS PO Last administered on 07/25/16 21:59; Admin Dose 30 MG; Start 07/20/16 at 21:00 Vancomycin HCl 125 mg 125 mg Q6 PO Last administered on 07/26/16 12:34; Admin Dose 125 MG; Start 07/21/16 at 19:00 Metronidazole (Flagyl 500 Mg (Pmx)) 100 ml @ 100 mls/hr Q8 IVPB Last administered on 07/26/16 06:05; Admin Dose 100 MLS/HR; Start 07/22/16 at 16:30 Lactobacillus Acidophilus/ Rhamnosus (Culturelle) 1 cap BID PO Last administered on 07/26/16 08:44; Admin Dose 1 CAP; Start 07/23/16 at 21:00 Ascorbic Acid (Vitamin C) 500 mg DAILY PO Last administered on 07/26/16 08:44 ; Admin Dose 500 MG; Start 07/26/16 at 09:00 TACOS GREEN MD Jul 26, 2016 15:26
--- NOTE | 2016-07-26 18:59 | CONS ---
Date/Time of Note Date/Time of Note DATE: 07/26/16 TIME: 18:56 Assessment/Plan Assessment/Plan Chief Complaint/Hosp Course - leukocytosis, possible early sepsis - infection of wounds of b/l heel due to MRSA, enterococcus sp and corynebacter jeikeium (grp JK); XR showed no bony abnormalities - unstageable decub of b/l heel - C diff colitis - s/p possible HCAP, Pt completed empiric cefepime (07/10/2016-07/19/2016); CXR on 07/20/2016 showed improvement. 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 Given by IV because Pt's often confused and PO intake can be affected. Will monitor CBC while Pt's on linezolid - continue PO vancomycin (07/15/2016-) while Pt's on antibiotics - continue IV Flagyl (07/22/2016-) management d/w Pt's RN Problems: Consultation Date/Type/Reason Admit Date/Time July 09, 2016 at 12:24 Initial Consult Date 07/11/16 Type of Consultation: ID Referring Provider: RONNIE PATEL MD 24 HR Interval Summary Subjective hx not possible: pt non-verbal Exam/Review of Systems Vital Signs Vitals Vital Signs Date Time Temp Pulse Resp B/P Pulse Ox O2 Delivery O2 Flow Rate FiO2 07/26/16 08:30 Nasal Cannula 2 07/26/16 07:59 98.1 24 124/60 95 07/26/16 01:00 78 Intake and Output 07/25/16 07/25/16 07/26/16 15:00 23:00 07:00 Intake Total 400 ml 560 ml 600 ml Output Total 600 ml 740 ml Balance 400 ml -40 ml -140 ml Exam Constitutional: frail, non-verbal Psych: confusion Head: atraumatic, normocephalic Eyes: nl conjunctiva, nl lids ENMT: nl external ears & nose Respiratory: diminished breath sounds Cardiovascular: nl pulses, regular rate and rhythm Gastrointestinal: other (cannot examine his abd because of his flexed legs) Musculoskeletal: No swelling Extremities: No edema Neurological: confused, lethargic Skin: rash or lesions (heel wounds, R worse than L (eschar, surrounded by erythema, fluctuant)) Results Result Diagram: 07/26/1634 07/26/16 0534 Results 24 hrs Laboratory Tests Test 07/26/16 05:34 White Blood Count 13.9 #H Red Blood Count 2.56 L Hemoglobin 7.5 L Hematocrit 23.3 L Mean Corpuscular Volume 91.0 Mean Corpuscular Hemoglobin 29.3 Mean Corpuscular Hemoglobin Concent 32.2 Red Cell Distribution Width 14.5 Platelet Count 262 Mean Platelet Volume 8.6 Neutrophils % 79.7 H Lymphocytes % 11.7 L Monocytes % 6.0 Eosinophils % 2.1 Basophils % 0.1 Nucleated Red Blood Cells % 0.0 Neutrophils # 11.1 H Lymphocytes # 1.6 Monocytes # 0.8 Eosinophils # 0.3 Basophils # 0.0 Nucleated Red Blood Cells # 0.0 Sodium Level 134 L Potassium Level 4.6 Chloride Level 111 H Carbon Dioxide Level 16 L Anion Gap 12 Blood Urea Nitrogen 63 H Creatinine 3.47 H Glucose Level 89 Calcium Level 7.6 L Medications Medications Current Medications Acetaminophen (Tylenol Tab) 500 mg Q6H PRN PO PAIN AND OR ELEVATED TEMP; Start 07/09/16 at 20:30 Ondansetron HCl (Zofran Inj) 4 mg Q6H PRN IV NAUSEA AND/OR VOMITING; Start at 20:30 Aspirin (Aspirin) 81 mg DAILY PO Last administered on 07/26/16 08:43; Admin Dose 81 MG; Start 07/10/16 at 09:00 Benztropine Mesylate (Cogentin) 1 mg BID PO Last administered on 07/26/16 08: 43; Admin Dose 1 MG; Start 07/09/16 at 21:00 Finasteride (Proscar) 5 mg DAILY PO Last administered on 07/26/16 08:52; Admin Dose 5 MG; Start 07/10/16 at 09:00 Acetaminophen/ Hydrocodone Bitart ([place] (5/325)) 1 tab Q4 PRN PO SEVERE PAIN LEVEL 7-10 Last administered on 07/15/16 16:21; Admin Dose 1 TAB; Start at 20:30 Latanoprost (Xalatan) 1 drop QHS BOTH EYES Last administered on 07/25/16 21:57 ; Admin Dose 1 DROP; Start 07/09/16 at 21:00 Multivitamins Therapeutic (Theragran) 1 tab DAILY PO Last administered on 08:44; Admin Dose 1 TAB; Start 07/10/16 at 09:00 Olanzapine (Zyprexa) 5 mg QHS PO Last administered on 07/25/16 21:59; Admin Dose 5 MG; Start 07/09/16 at 21:00 Zinc Sulfate (Zinc Sulfate) 220 mg DAILY PO Last administered on 07/26/16 08: 44; Admin Dose 220 MG; Start 07/10/16 at 09:00 Acetaminophen (Tylenol Supp) 650 mg Q6H PRN [place] ELEVATED TEMPERATURE Last administered on 07/10/16 09:51; Admin Dose 650 MG; Start 07/10/16 at 09:30 Collagenase (Santyl) 1 applic DAILY TOP Last administered on 07/26/16 08:43; Admin Dose 1 APPLIC; Start 07/10/16 at 14:00 Bisacodyl (Dulcolax) 10 mg BID PO Last administered on 07/26/16 08:43; Admin Dose 10 MG; Start 07/13/16 at 15:00 Benazepril HCl (Lotensin) 20 mg DAILY PO Last administered on 07/26/16 08:50; Admin Dose 20 MG; Start 07/16/16 at 09:00 Lorazepam (Ativan) 0.5 mg Q6H PRN IV ANXIETY Last administered on 07/18/16 09: 58; Admin Dose 0.5 MG; Start 07/16/16 at 23:30 Zolpidem Tartrate (Ambien) 2.5 mg HS PRN PO INSOMNIA; Start 07/17/16 at 19:00 Epoetin Zana (Epogen (Esrd)) 6,000 units TuThSa@17 SC Last administered on 17:49; Admin Dose 6,000 UNITS; Start 07/17/16 at 20:00 Miscellaneous Information This patient ellis... PRN PRN XX WOUND CARE; Start at 07:00 Linezolid (Zyvox 600mg/D5W (Pmx)) 300 ml @ 300 mls/hr Q12 IVPB Last administered on 07/26/16 08:53; Admin Dose 300 MLS/HR; Start 07/18/16 at 11:00 Lorazepam (Ativan) 0.5 mg Q6H PRN PO ANXEITY Last administered on 07/19/16 22: 28; Admin Dose 0.5 MG; Start 07/18/16 at 16:00 Clonidine (Catapres) 0.1 mg TID PO Last administered on 07/26/16 12:34; Admin Dose 0.1 MG; Start 07/19/16 at 09:00 Nifedipine (Procardia Xl) 30 mg QHS PO Last administered on 07/25/16 21:59; Admin Dose 30 MG; Start 07/20/16 at 21:00 Vancomycin HCl 125 mg 125 mg Q6 PO Last administered on 07/26/16 12:34; Admin Dose 125 MG; Start 07/21/16 at 19:00 Metronidazole (Flagyl 500 Mg (Pmx)) 100 ml @ 100 mls/hr Q8 IVPB Last administered on 07/26/16 16:16; Admin Dose 100 MLS/HR; Start 07/22/16 at 16:30 Lactobacillus Acidophilus/ Rhamnosus (Culturelle) 1 cap BID PO Last administered on 07/26/16 08:44; Admin Dose 1 CAP; Start 07/23/16 at 21:00 Ascorbic Acid (Vitamin C) 500 mg DAILY PO Last administered on 07/26/16 08:44 ; Admin Dose 500 MG; Start 07/26/16 at 09:00 JERO GALAN M.D. Jul 26, 2016 18:59
[2016-07-26] MEDS: EPOETIN 3000 UNITS/1 ML INJ (ESRD) SC SCH (19:05)
[2016-07-26 19:46] VITALS: BP 146/71; RESP 20
[2016-07-26] MEDS: OLANZAPINE 5 MG TAB PO SCH (20:37)
[2016-07-26] MEDS: NIFEdipine (XL) 30 MG TAB PO SCH (20:38)
[2016-07-26] MEDS: LATANOPROST 0.005% 2.5 ML OPH BOTH EYES SCH (21:45)
[2016-07-27] MEDS: VANCOMYCIN HCL 250 MG/5ML POSYG PO SCH ×4 (00:35→17:32)
[2016-07-27] MEDS: metroNIDAZOLE 500 MG/NS (PMX) 100 ML IVPB SCH ×3 (05:31→22:47)
[2016-07-27 08:26] VITALS: BP 146/78; RESP 16
[2016-07-27] MEDS: LACTOBACILLUS RHAMNOSUS CAP PO SCH ×2 (10:29→21:35)
[2016-07-27] MEDS: LINEZOLID 600 MG/D5W (PMX) 300 ML IVPB SCH ×2 (10:29→21:33)
[2016-07-27] MEDS: CALCIUM CARBONATE 750 MG CHEW TAB PO SCH ×3 (10:29→17:32)
[2016-07-27] MEDS: ZINC SULFATE 220 MG CAP PO SCH (10:30)
[2016-07-27] MEDS: BISACODYL (EC) 5 MG TAB PO SCH ×2 (10:30→21:00)
[2016-07-27] MEDS: MULTIVITAMINS THERAPEUTIC TAB PO SCH (10:30)
[2016-07-27] MEDS: FINASTERIDE 5 MG TAB PO SCH (10:31)
[2016-07-27] MEDS: BENAZEPRIL 20 MG TAB PO SCH (10:31)
[2016-07-27] MEDS: ASCORBIC ACID 500 MG TAB PO SCH (10:31)
[2016-07-27] MEDS: COLLAGENASE 30 GM TUBE TOP SCH (10:32)
[2016-07-27] MEDS: BENZTROPINE 1 MG TAB PO SCH ×2 (10:33→21:36)
[2016-07-27] MEDS: ASPIRIN 81 MG TAB PO SCH (10:34)
[2016-07-27] MEDS: PANTOPRAZOLE (EC) 40 MG TAB PO SCH (10:34)
--- NOTE | 2016-07-27 11:01 | PN ---
Date/Time of Note Date/Time of Note DATE: 07/27/16 TIME: 11:01 Assessment/Plan VTE Prophylaxis VTE Prophylaxis Intervention: other Lines/Catheters IV Catheter Type (from Nrs): Saline Lock Urinary Cath still in place: Yes Reason Cath still needed: skin wounds contaminated by urine Assessment/Plan Chief Complaint/Hosp Course - Acute kidney injury, etiology unknown. Dr. Keating is following in nephrology consultation. - Acute metabolic encephalopathy, resolving. - Hypertension. - Chronic obstructive pulmonary disease. - Benign prostatic hypertrophy. Continue Flomax. - Loculated pleural effusion. Continue to monitor chest x-ray. - Multiple decubitus ulcers. Continue current wound care - Acute cerebrovascular accident. Continue aspirin. - Dyslipidemia. Continue Lipitor. - Dementia with behavioral disturbance. Continue Zyprexa. Problems: Subjective 24 Hr Interval Summary Free Text/Dictation Patient has no complaints Exam/Review of Systems Vital Signs Vitals Vital Signs Date Time Temp Pulse Resp B/P Pulse Ox O2 Delivery O2 Flow Rate FiO2 07/27/16 08:26 98.8 74 16 146/78 92 07/27/16 00:16 2.0 07/26/16 20:00 Nasal Cannula Intake and Output 07/26/16 07/26/16 07/27/16 15:00 23:00 07:00 Intake Total 400 ml 500 ml 200 ml Output Total 680 ml Balance 400 ml 500 ml -480 ml Exam Constitutional: well developed Head: atraumatic, normocephalic Neck: supple Respiratory: clear to auscultation Cardiovascular: regular rate and rhythm Gastrointestinal: non-tender, soft Extremities: normal pulses Results Result Diagram: 07/26/16 0534 07/26/16 0534 Medications Medications Current Medications Acetaminophen (Tylenol Tab) 500 mg Q6H PRN PO PAIN AND OR ELEVATED TEMP; Start 07/09/16 at 20:30 Ondansetron HCl (Zofran Inj) 4 mg Q6H PRN IV NAUSEA AND/OR VOMITING; Start at 20:30 Aspirin (Aspirin) 81 mg DAILY PO Last administered on 07/27/16 10:34; Admin Dose 81 MG; Start 07/10/16 at 09:00 Benztropine Mesylate (Cogentin) 1 mg BID PO Last administered on 07/27/16 10: 33; Admin Dose 1 MG; Start 07/09/16 at 21:00 Finasteride (Proscar) 5 mg DAILY PO Last administered on 07/27/16 10:31; Admin Dose 5 MG; Start 07/10/16 at 09:00 Acetaminophen/ Hydrocodone Bitart ([place] (5/325)) 1 tab Q4 PRN PO SEVERE PAIN LEVEL 7-10 Last administered on 07/15/16 16:21; Admin Dose 1 TAB; Start at 20:30 Latanoprost (Xalatan) 1 drop QHS BOTH EYES Last administered on 07/26/16 21:45 ; Admin Dose 1 DROP; Start 07/09/16 at 21:00 Multivitamins Therapeutic (Theragran) 1 tab DAILY PO Last administered on 10:30; Admin Dose 1 TAB; Start 07/10/16 at 09:00 Olanzapine (Zyprexa) 5 mg QHS PO Last administered on 07/26/16 20:37; Admin Dose 5 MG; Start 07/09/16 at 21:00 Zinc Sulfate (Zinc Sulfate) 220 mg DAILY PO Last administered on 07/27/16 10: 30; Admin Dose 220 MG; Start 07/10/16 at 09:00 Acetaminophen (Tylenol Supp) 650 mg Q6H PRN [place] ELEVATED TEMPERATURE Last administered on 07/10/16 09:51; Admin Dose 650 MG; Start 07/10/16 at 09:30 Collagenase (Santyl) 1 applic DAILY TOP Last administered on 07/27/16 10:32; Admin Dose 1 APPLIC; Start 07/10/16 at 14:00 Bisacodyl (Dulcolax) 10 mg BID PO Last administered on 07/27/16 10:30; Admin Dose 10 MG; Start 07/13/16 at 15:00 Benazepril HCl (Lotensin) 20 mg DAILY PO Last administered on 07/27/16 10:31; Admin Dose 20 MG; Start 07/16/16 at 09:00 Lorazepam (Ativan) 0.5 mg Q6H PRN IV ANXIETY Last administered on 07/18/16 09: 58; Admin Dose 0.5 MG; Start 07/16/16 at 23:30 Zolpidem Tartrate (Ambien) 2.5 mg HS PRN PO INSOMNIA; Start 07/17/16 at 19:00 Epoetin Zana (Epogen (Esrd)) 6,000 units TuThSa@17 SC Last administered on 07/26 19:05; Admin Dose 6,000 UNITS; Start 07/17/16 at 20:00 Miscellaneous Information This patient ellis... PRN PRN XX WOUND CARE; Start at 07:00 Linezolid (Zyvox 600mg/D5W (Pmx)) 300 ml @ 300 mls/hr Q12 IVPB Last administered on 07/27/16 10:29; Admin Dose 300 MLS/HR; Start 07/18/16 at 11:00 Lorazepam (Ativan) 0.5 mg Q6H PRN PO ANXEITY Last administered on 07/19/16 22: 28; Admin Dose 0.5 MG; Start 07/18/16 at 16:00 Clonidine (Catapres) 0.1 mg TID PO Last administered on 07/27/16 10:31; Admin Dose 0.1 MG; Start 07/19/16 at 09:00 Nifedipine (Procardia Xl) 30 mg QHS PO Last administered on 07/26/16 20:38; Admin Dose 30 MG; Start 07/20/16 at 21:00 Vancomycin HCl 125 mg 125 mg Q6 PO Last administered on 07/27/16 05:31; Admin Dose 125 MG; Start 07/21/16 at 19:00 Metronidazole (Flagyl 500 Mg (Pmx)) 100 ml @ 100 mls/hr Q8 IVPB Last administered on 07/27/16 05:31; Admin Dose 100 MLS/HR; Start 07/22/16 at 16:30 Lactobacillus Acidophilus/ Rhamnosus (Culturelle) 1 cap BID PO Last administered on 07/27/16 10:29; Admin Dose 1 CAP; Start 07/23/16 at 21:00 Ascorbic Acid (Vitamin C) 500 mg DAILY PO Last administered on 07/27/16 10:31 ; Admin Dose 500 MG; Start 07/26/16 at 09:00 WINIFRED CHAVEZ Jul 27, 2016 11:01
--- NOTE | 2016-07-27 14:57 | PN ---
DATE: 07/27/2016 SUBJECTIVE: No new complaints. Minimal communication. VITAL SIGNS: Temperature 98.8, heart rate 74, respirations 16, blood pressure 146/78, saturation 92 % on 2 liter nasal cannula oxygenation. LABORATORY DATA: Today, no labs have been done. OBJECTIVE: The inspection of the bilateral heel decubitus wound is the same as yesterday. Minimal change. Dressing has been applied with Santyl. Abdomen is soft. ASSESSMENT AND PLAN: A 71-year-old male with multiple medical problems including acute kidney injur y, leukocytosis, bilateral necrotic infected decubitus ulcers of the heels which have grown MRSA. A lso, C. diff. The patient is receiving antibiotics, Zyvox, vancomycin, and Flagyl, for the aforemen tioned medical problems. As far as the wound management is concerned, I prefer to continue Santyl f or a couple of more days and then maybe we can take the patient to the OR to do debridement, awaitin g enough time lapse after getting antibiotics for Clostridium difficile. I will continue followup a long with the other colleagues. Dictated By: LISSETH THORPE MD PS/MEAGAN Conf#: [id number] DID#: [id number]
--- NOTE | 2016-07-27 18:34 | CONS ---
Date/Time of Note Date/Time of Note DATE: 07/27/16 TIME: 18:34 Assessment/Plan Assessment/Plan Additional Assessment/Plan 1. Acute kidney injury, Pre- Renal R/o ATN, Avila no signs of obstructive Uropathy, Hx of BPH.- Non Oliguric 2. Hypertension. Normotensive at this time. 3. Chronic obstructive pulmonary disease. 4. Benign prostatic hypertrophy. 5. Loculated pleural effusion. 6. Multiple decubiti 7. Cerebrovascular accident. 8. Dyslipidemia. 9. Dementia with behavioral disturbance. 10. Metabolic Acidosis-stable 11. Hyponatremia Renal function is stable Pt is non oliguric, Cont current Rx and plan Repeat labs in am No acute indication for HD at this time Consultation Date/Type/Reason Admit Date/Time July 09, 2016 at 12:24 Type of Consultation: Renal Referring Provider: ORNNIE PATEL MD 24 HR Interval Summary Free Text/Dictation No events reported Exam/Review of Systems Vital Signs Vitals Vital Signs Date Time Temp Pulse Resp B/P Pulse Ox O2 Delivery O2 Flow Rate FiO2 07/27/16 16:38 2.0 07/27/16 14:33 Nasal Cannula 07/27/16 08:26 98.8 74 16 146/78 92 Intake and Output 07/26/16 07/26/16 07/27/16 15:00 23:00 07:00 Intake Total 400 ml 500 ml 200 ml Output Total 680 ml Balance 400 ml 500 ml -480 ml Exam Constitutional: alert, No distress ENMT: mucosa pink and moist Respiratory: No diminished breath sounds, No labored breathing Cardiovascular: No edema Gastrointestinal: soft Neurological: No lethargic Skin: No diaphoresis Results Result Diagram: 07/26/16 0534 07/26/16 0534 Medications Medications Current Medications Acetaminophen (Tylenol Tab) 500 mg Q6H PRN PO PAIN AND OR ELEVATED TEMP; Start 07/09/16 at 20:30 Ondansetron HCl (Zofran Inj) 4 mg Q6H PRN IV NAUSEA AND/OR VOMITING; Start at 20:30 Aspirin (Aspirin) 81 mg DAILY PO Last administered on 07/27/16 10:34; Admin Dose 81 MG; Start 07/10/16 at 09:00 Benztropine Mesylate (Cogentin) 1 mg BID PO Last administered on 07/27/16 10: 33; Admin Dose 1 MG; Start 07/09/16 at 21:00 Finasteride (Proscar) 5 mg DAILY PO Last administered on 07/27/16 10:31; Admin Dose 5 MG; Start 07/10/16 at 09:00 Acetaminophen/ Hydrocodone Bitart ([place] (5/325)) 1 tab Q4 PRN PO SEVERE PAIN LEVEL 7-10 Last administered on 07/15/16 16:21; Admin Dose 1 TAB; Start at 20:30 Latanoprost (Xalatan) 1 drop QHS BOTH EYES Last administered on 07/26/16 21:45 ; Admin Dose 1 DROP; Start 07/09/16 at 21:00 Multivitamins Therapeutic (Theragran) 1 tab DAILY PO Last administered on 10:30; Admin Dose 1 TAB; Start 07/10/16 at 09:00 Olanzapine (Zyprexa) 5 mg QHS PO Last administered on 07/26/16 20:37; Admin Dose 5 MG; Start 07/09/16 at 21:00 Zinc Sulfate (Zinc Sulfate) 220 mg DAILY PO Last administered on 07/27/16 10: 30; Admin Dose 220 MG; Start 07/10/16 at 09:00 Acetaminophen (Tylenol Supp) 650 mg Q6H PRN [place] ELEVATED TEMPERATURE Last administered on 07/10/16 09:51; Admin Dose 650 MG; Start 07/10/16 at 09:30 Collagenase (Santyl) 1 applic DAILY TOP Last administered on 07/27/16 10:32; Admin Dose 1 APPLIC; Start 07/10/16 at 14:00 Bisacodyl (Dulcolax) 10 mg BID PO Last administered on 07/27/16 10:30; Admin Dose 10 MG; Start 07/13/16 at 15:00 Benazepril HCl (Lotensin) 20 mg DAILY PO Last administered on 07/27/16 10:31; Admin Dose 20 MG; Start 07/16/16 at 09:00 Lorazepam (Ativan) 0.5 mg Q6H PRN IV ANXIETY Last administered on 07/18/16 09: 58; Admin Dose 0.5 MG; Start 07/16/16 at 23:30 Zolpidem Tartrate (Ambien) 2.5 mg HS PRN PO INSOMNIA; Start 07/17/16 at 19:00 Epoetin Zana (Epogen (Esrd)) 6,000 units TuThSa@17 SC Last administered on 07/26 19:05; Admin Dose 6,000 UNITS; Start 07/17/16 at 20:00 Miscellaneous Information This patient ellis... PRN PRN XX WOUND CARE; Start at 07:00 Linezolid (Zyvox 600mg/D5W (Pmx)) 300 ml @ 300 mls/hr Q12 IVPB Last administered on 07/27/16 10:29; Admin Dose 300 MLS/HR; Start 07/18/16 at 11:00 Lorazepam (Ativan) 0.5 mg Q6H PRN PO ANXEITY Last administered on 07/19/16 22: 28; Admin Dose 0.5 MG; Start 07/18/16 at 16:00 Clonidine (Catapres) 0.1 mg TID PO Last administered on 07/27/16 13:53; Admin Dose 0.1 MG; Start 07/19/16 at 09:00 Nifedipine (Procardia Xl) 30 mg QHS PO Last administered on 07/26/16 20:38; Admin Dose 30 MG; Start 07/20/16 at 21:00 Vancomycin HCl 125 mg 125 mg Q6 PO Last administered on 07/27/16 17:32; Admin Dose 125 MG; Start 07/21/16 at 19:00 Metronidazole (Flagyl 500 Mg (Pmx)) 100 ml @ 100 mls/hr Q8 IVPB Last administered on 07/27/16 13:53; Admin Dose 100 MLS/HR; Start 07/22/16 at 16:30 Lactobacillus Acidophilus/ Rhamnosus (Culturelle) 1 cap BID PO Last administered on 07/27/16 10:29; Admin Dose 1 CAP; Start 07/23/16 at 21:00 Ascorbic Acid (Vitamin C) 500 mg DAILY PO Last administered on 07/27/16 10:31 ; Admin Dose 500 MG; Start 07/26/16 at 09:00 TACOS GREEN MD Jul 27, 2016 18:34
[2016-07-27 19:31] VITALS: BP 140/66; RESP 16
--- NOTE | 2016-07-27 19:31 | CONS ---
WADE PINK SENIOR LIBRARIAN 07/27/16 1932: Date/Time of Note Date/Time of Note DATE: 07/27/16 TIME: 19:22 Assessment/Plan Assessment/Plan Chief Complaint/Hosp Course - leukocytosis, possible early sepsis - infection of wounds of b/l heel due to MRSA, enterococcus sp and corynebacter jeikeium (grp JK); XR showed no bony abnormalities - unstageable decub of b/l heel - C diff colitis - s/p possible HCAP, Pt completed empiric cefepime (07/10/2016-07/19/2016); CXR on 07/20/2016 showed improvement. 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 Given by IV because Pt's often confused and PO intake can be affected. Will monitor CBC while Pt's on linezolid - continue PO vancomycin (07/15/2016-) while Pt's on antibiotics - continue IV Flagyl (07/22/2016-) Management d/w DANIEL Quick and Dr. Timmons Problems: Consultation Date/Type/Reason Admit Date/Time July 09, 2016 at 12:24 Initial Consult Date 07/11/16 Type of Consultation: Infectious Disease Referring Provider: RONNIE PATEL MD 24 HR Interval Summary Free Text/Dictation Had large episode of diarrhea per BORDER GUARD. ROS limited due to chronic encephalopathy. Exam/Review of Systems Vital Signs Vitals Vital Signs Date Time Temp Pulse Resp B/P Pulse Ox O2 Delivery O2 Flow Rate FiO2 07/27/16 16:38 2.0 07/27/16 14:33 Nasal Cannula 07/27/16 08:26 98.8 74 16 146/78 92 Intake and Output 07/26/16 07/26/16 07/27/16 15:00 23:00 07:00 Intake Total 400 ml 500 ml 200 ml Output Total 680 ml Balance 400 ml 500 ml -480 ml Exam Constitutional: well developed, non-verbal Head: atraumatic, normocephalic Eyes: nl sclera Neck: supple Respiratory: diminished breath sounds Cardiovascular: regular rate and rhythm Gastrointestinal: non-tender, soft Genitourinary: Avila catheter present Extremities: No cyanosis, No edema Neurological: confused Skin: nl turgor, other (see nurses note and photo in chart for details - bilateral heel and coccyx decubiti) Results Result Diagram: 07/26/1653307/26/16533 Medications Medications Current Medications Acetaminophen (Tylenol Tab) 500 mg Q6H PRN PO PAIN AND OR ELEVATED TEMP; Start 07/09/16 at 20:30 Ondansetron HCl (Zofran Inj) 4 mg Q6H PRN IV NAUSEA AND/OR VOMITING; Start at 20:30 Aspirin (Aspirin) 81 mg DAILY PO Last administered on 07/27/16 10:34; Admin Dose 81 MG; Start 07/10/16 at 09:00 Benztropine Mesylate (Cogentin) 1 mg BID PO Last administered on 07/27/16 10: 33; Admin Dose 1 MG; Start 07/09/16 at 21:00 Finasteride (Proscar) 5 mg DAILY PO Last administered on 07/27/16 10:31; Admin Dose 5 MG; Start 07/10/16 at 09:00 Acetaminophen/ Hydrocodone Bitart ([place] (5/325)) 1 tab Q4 PRN PO SEVERE PAIN LEVEL 7-10 Last administered on 07/15/16 16:21; Admin Dose 1 TAB; Start at 20:30 Latanoprost (Xalatan) 1 drop QHS BOTH EYES Last administered on 07/26/16 21:45 ; Admin Dose 1 DROP; Start 07/09/16 at 21:00 Multivitamins Therapeutic (Theragran) 1 tab DAILY PO Last administered on 10:30; Admin Dose 1 TAB; Start 07/10/16 at 09:00 Olanzapine (Zyprexa) 5 mg QHS PO Last administered on 07/26/16 20:37; Admin Dose 5 MG; Start 07/09/16 at 21:00 Zinc Sulfate (Zinc Sulfate) 220 mg DAILY PO Last administered on 07/27/16 10: 30; Admin Dose 220 MG; Start 07/10/16 at 09:00 Acetaminophen (Tylenol Supp) 650 mg Q6H PRN [place] ELEVATED TEMPERATURE Last administered on 07/10/16 09:51; Admin Dose 650 MG; Start 07/10/16 at 09:30 Collagenase (Santyl) 1 applic DAILY TOP Last administered on 07/27/16 10:32; Admin Dose 1 APPLIC; Start 07/10/16 at 14:00 Bisacodyl (Dulcolax) 10 mg BID PO Last administered on 07/27/16 10:30; Admin Dose 10 MG; Start 07/13/16 at 15:00 Benazepril HCl (Lotensin) 20 mg DAILY PO Last administered on 07/27/16 10:31; Admin Dose 20 MG; Start 07/16/16 at 09:00 Lorazepam (Ativan) 0.5 mg Q6H PRN IV ANXIETY Last administered on 07/18/16 09: 58; Admin Dose 0.5 MG; Start 07/16/16 at 23:30 Zolpidem Tartrate (Ambien) 2.5 mg HS PRN PO INSOMNIA; Start 07/17/16 at 19:00 Epoetin Zana (Epogen (Esrd)) 6,000 units TuThSa@17 SC Last administered on 07/26 19:05; Admin Dose 6,000 UNITS; Start 07/17/16 at 20:00 Miscellaneous Information This patient ellis... PRN PRN XX WOUND CARE; Start at 07:00 Linezolid (Zyvox 600mg/D5W (Pmx)) 300 ml @ 300 mls/hr Q12 IVPB Last administered on 07/27/16 10:29; Admin Dose 300 MLS/HR; Start 07/18/16 at 11:00 Lorazepam (Ativan) 0.5 mg Q6H PRN PO ANXEITY Last administered on 07/19/16 22: 28; Admin Dose 0.5 MG; Start 07/18/16 at 16:00 Clonidine (Catapres) 0.1 mg TID PO Last administered on 07/27/16 13:53; Admin Dose 0.1 MG; Start 07/19/16 at 09:00 Nifedipine (Procardia Xl) 30 mg QHS PO Last administered on 07/26/16 20:38; Admin Dose 30 MG; Start 07/20/16 at 21:00 Vancomycin HCl 125 mg 125 mg Q6 PO Last administered on 07/27/16 17:32; Admin Dose 125 MG; Start 07/21/16 at 19:00 Metronidazole (Flagyl 500 Mg (Pmx)) 100 ml @ 100 mls/hr Q8 IVPB Last administered on 07/27/16 13:53; Admin Dose 100 MLS/HR; Start 07/22/16 at 16:30 Lactobacillus Acidophilus/ Rhamnosus (Culturelle) 1 cap BID PO Last administered on 07/27/16 10:29; Admin Dose 1 CAP; Start 07/23/16 at 21:00 Ascorbic Acid (Vitamin C) 500 mg DAILY PO Last administered on 07/27/16 10:31 ; Admin Dose 500 MG; Start 07/26/16 at 09:00 JERO TIMMONS M.D. 08/02/16 2224: Assessment/Plan Assessment/Plan Additional Assessment/Plan Shanelle attestation: I discussed the management with LING Pink and agree with above Exam/Review of Systems Results Result Diagram: 07/26/16 0534 07/26/16 0534 WADE PINK NP Jul 27, 2016 19:31 JERO TIMMONS M.D. Aug 02, 2016 22:24
[2016-07-27] MEDS: OLANZAPINE 5 MG TAB PO SCH (21:35)
[2016-07-27] MEDS: NIFEdipine (XL) 30 MG TAB PO SCH (21:36)
[2016-07-27] MEDS: LATANOPROST 0.005% 2.5 ML OPH BOTH EYES SCH (21:40)
[2016-07-28] MEDS: VANCOMYCIN HCL 250 MG/5ML POSYG PO SCH ×5 (00:41→23:11)
[2016-07-28] MEDS: metroNIDAZOLE 500 MG/NS (PMX) 100 ML IVPB SCH ×3 (05:28→22:03)
[2016-07-28 05:43] LABS: ADD SCAN DIFF NO
[2016-07-28 06:00] LABS: BASOPHILS % 0.1 % (0.0-2.0); EOSINOPHILS # 0.5 10^3/ul (0.0-0.5); EOSINOPHILS % 4.1 % (0.0-7.0); HEMATOCRIT 24.3 % (42.0-52.0); HEMOGLOBIN 7.7 g/dl (14.0-18.0); LYMPHOCYTES # 1.5 10^3/ul (0.8-2.9); LYMPHOCYTES % 12.1 % (15.0-51.0); MEAN CORPUSCULAR HEMOGLOBIN 29.2 pg (29.0-33.0); MEAN CORPUSCULAR HGB CONC 31.7 g/dl (32.0-37.0); MEAN PLATELET VOLUME 8.6 fl (7.4-10.4); MONOCYTE # 0.5 10^3/ul (0.3-0.9); NEUTROPHIL # 9.8 10^3/ul (1.6-7.5); NEUTROPHILS % 79.3 % (39.0-77.0); PLATELET COUNT 217 10^3/UL (140-415); RED BLOOD COUNT 2.64 10^6/ul (4.70-6.10); RED CELL DISTRIBUTION WIDTH 14.6 % (11.5-14.5); WHITE BLOOD COUNT 12.4 10^3/ul (4.8-10.8)
[2016-07-28 06:19] LABS: CALCIUM 7.7 mg/dl (8.4-10.2); CREATININE 3.49 mg/dl (0.61-1.24); POTASSIUM 4.1 mmol/L (3.5-5.1)
[2016-07-28 07:29] VITALS: BP 157/72; RESP 18
--- NOTE | 2016-07-28 07:52 | PN ---
DATE: 07/25/2016 ADDENDUM I spoke with the patient's sister, Carol, and updated her regarding patient's condition & further plan of care. Wound care nursing notes reviewed & as recommended Dr. Yosvany Bell has been called for podiatry consult for bilateral heel ulcers. Meanwhile, we will also obtain arterial Doppler studies. We will also cosult Dr. Simental for coccygeal decubitus. Dictated By: RONNIE PEREZ/MEAGAN Conf#: [id number] DID#: [id number]
[2016-07-28] MEDS: ZINC SULFATE 220 MG CAP PO SCH (09:06)
[2016-07-28] MEDS: LINEZOLID 600 MG/D5W (PMX) 300 ML IVPB SCH ×2 (09:06→20:48)
[2016-07-28] MEDS: PANTOPRAZOLE (EC) 40 MG TAB PO SCH (09:06)
[2016-07-28] MEDS: MULTIVITAMINS THERAPEUTIC TAB PO SCH (09:07)
[2016-07-28] MEDS: LACTOBACILLUS RHAMNOSUS CAP PO SCH ×2 (09:07→20:48)
[2016-07-28] MEDS: BENZTROPINE 1 MG TAB PO SCH ×2 (09:07→20:48)
[2016-07-28] MEDS: BISACODYL (EC) 5 MG TAB PO SCH ×2 (09:07→20:49)
[2016-07-28] MEDS: ASPIRIN 81 MG TAB PO SCH (09:07)
[2016-07-28] MEDS: FINASTERIDE 5 MG TAB PO SCH (09:07)
[2016-07-28] MEDS: BENAZEPRIL 20 MG TAB PO SCH (09:07)
[2016-07-28] MEDS: ASCORBIC ACID 500 MG TAB PO SCH (09:07)
[2016-07-28] MEDS: CALCIUM CARBONATE 750 MG CHEW TAB PO SCH ×3 (09:22→18:14)
[2016-07-28 14:24] LABS: INR 1.53; PT RATIO 1.4
[2016-07-28 14:25] LABS: PARTIAL THROMBOPLASTIN TIME 38.2 Sec (25.0-35.0)
--- NOTE | 2016-07-28 14:32 | PN ---
Date/Time of Note Date/Time of Note DATE: 07/28/16 TIME: 14:14 Assessment/Plan VTE Prophylaxis VTE Prophylaxis Intervention: SCD's Lines/Catheters IV C[facility]ter Type [facility]from [facility] Saline Lock Urinary Cath still in place: Yes Reason Cath still needed: urinary retention Assessment/Plan Chief Complaint/Hosp Course Patient remains afebrile, lethargic but easily arousable. Assessment/Plan - Bilateral heel wounds, Dr. Simental is following in general surgery consultation was planned for possible debridement, will obtain cardiology clearance clearance prior to procedure. - C. difficile colitis. Dr. Henderson is following an infection disease consultation. Continue oral vancomycin and intravenous metronidazole. - Colitis ulcers per colonoscopy, continue to follow-up gastroenterology recommendations. - Infected wounds on bilateral lower extremities. Continue antibiotics per ID. - Acute kidney injury, etiology unknown. Dr. Srinivasan is following in nephrology consultation. - Acute metabolic encephalopathy, resolving. - Hypertension. Continue clonidine, Procardia and benazepril - Chronic obstructive pulmonary disease. - Benign prostatic hypertrophy. Continue Flomax. - Multiple decubitus ulcers present on admission. - Acute cerebrovascular accident. Continue aspirin. - Dyslipidemia. Continue Lipitor. - Dementia with behavioral disturbance. Continue Zyprexa. Further recommendations based on clinical course. Plan of care discussed with Dr. Rene. Problems: Exam/Review of Systems Vital Signs Vitals Vital Signs Date Time Temp Pulse Resp B/P Pulse Ox O2 Delivery O2 Flow Rate FiO2 07/28/16 13:27 2.0 07/28/16 07:29 98.5 77 18 157/72 94 07/27/16 20:00 Nasal Cannula Intake and Output 07/27/16 07/27/16 07/28/16 15:00 23:00 07:00 Intake Total 400 ml 900 ml 440 ml Output Total 1000 ml 840 ml Balance 400 ml -100 ml -400 ml Exam Constitutional: alert, frail Head: normocephalic Respiratory: normal air movement Cardiovascular: nl pulses Gastrointestinal: non-tender, soft Extremities: normal pulses, other Skin: other (Bilateral lower extremities wounds) Results Result Diagram: 07/28/16 0429 07/28/16 0429 Results 24 hrs Laboratory Tests Test 07/28/16 04:29 07/28/16 11:41 White Blood Count 12.4 H Red Blood Count 2.64 L Hemoglobin 7.7 L Hematocrit 24.3 L Mean Corpuscular Volume 92.0 Mean Corpuscular Hemoglobin 29.2 Mean Corpuscular Hemoglobin Concent 31.7 L Red Cell Distribution Width 14.6 H Platelet Count 217 Mean Platelet Volume 8.6 Neutrophils % 79.3 H Lymphocytes % 12.1 L Monocytes % 4.0 Eosinophils % 4.1 Basophils % 0.1 Nucleated Red Blood Cells % 0.0 Neutrophils # 9.8 H Lymphocytes # 1.5 Monocytes # 0.5 Eosinophils # 0.5 Basophils # 0.0 Nucleated Red Blood Cells # 0.0 Sodium Level 140 Potassium Level 4.1 Chloride Level 115 H Carbon Dioxide Level 18 L Anion Gap 11 Blood Urea Nitrogen 65 H Creatinine 3.49 H Glucose Level 82 Calcium Level 7.7 L Lab Scanned Report REFERENCE LAB Medications Medications Current Medications Acetaminophen (Tylenol Tab) 500 mg Q6H PRN PO PAIN AND OR ELEVATED TEMP; Start 07/09/16 at 20:30 Ondansetron HCl (Zofran Inj) 4 mg Q6H PRN IV NAUSEA AND/OR VOMITING; Start at 20:30 Aspirin (Aspirin) 81 mg DAILY PO Last administered on 07/28/16 09:07; Admin Dose 81 MG; Start 07/10/16 at 09:00 Benztropine Mesylate (Cogentin) 1 mg BID PO Last administered on 07/28/16 09: 07; Admin Dose 1 MG; Start 07/09/16 at 21:00 Finasteride (Proscar) 5 mg DAILY PO Last administered on 07/28/16 09:07; Admin Dose 5 MG; Start 07/10/16 at 09:00 Acetaminophen/ Hydrocodone Bitart ([place] (5/325)) 1 tab Q4 PRN PO SEVERE PAIN LEVEL 7-10 Last administered on 07/15/16 16:21; Admin Dose 1 TAB; Start at 20:30 Latanoprost (Xalatan) 1 drop QHS BOTH EYES Last administered on 07/27/16 21:40 ; Admin Dose 1 DROP; Start 07/09/16 at 21:00 Multivitamins Therapeutic (Theragran) 1 tab DAILY PO Last administered on 09:07; Admin Dose 1 TAB; Start 07/10/16 at 09:00 Olanzapine (Zyprexa) 5 mg QHS PO Last administered on 07/27/16 21:35; Admin Dose 5 MG; Start 07/09/16 at 21:00 Zinc Sulfate (Zinc Sulfate) 220 mg DAILY PO Last administered on 07/28/16 09: 06; Admin Dose 220 MG; Start 07/10/16 at 09:00 Acetaminophen (Tylenol Supp) 650 mg Q6H PRN [place] ELEVATED TEMPERATURE Last administered on 07/10/16 09:51; Admin Dose 650 MG; Start 07/10/16 at 09:30 Collagenase (Santyl) 1 applic DAILY TOP Last administered on 07/27/16 10:32; Admin Dose 1 APPLIC; Start 07/10/16 at 14:00 Bisacodyl (Dulcolax) 10 mg BID PO Last administered on 07/28/16 09:07; Admin Dose 10 MG; Start 07/13/16 at 15:00 Benazepril HCl (Lotensin) 20 mg DAILY PO Last administered on 07/28/16 09:07; Admin Dose 20 MG; Start 07/16/16 at 09:00 Lorazepam (Ativan) 0.5 mg Q6H PRN IV ANXIETY Last administered on 07/18/16 09: 58; Admin Dose 0.5 MG; Start 07/16/16 at 23:30 Zolpidem Tartrate (Ambien) 2.5 mg HS PRN PO INSOMNIA; Start 07/17/16 at 19:00 Epoetin Zana (Epogen (Esrd)) 6,000 units TuThSa@17 SC Last administered on 07/26 19:05; Admin Dose 6,000 UNITS; Start 07/17/16 at 20:00 Miscellaneous Information This patient ellis... PRN PRN XX WOUND CARE; Start at 07:00 Linezolid (Zyvox 600mg/D5W (Pmx)) 300 ml @ 300 mls/hr Q12 IVPB Last administered on 07/28/16 09:06; Admin Dose 300 MLS/HR; Start 07/18/16 at 11:00 Lorazepam (Ativan) 0.5 mg Q6H PRN PO ANXEITY Last administered on 07/19/16 22: 28; Admin Dose 0.5 MG; Start 07/18/16 at 16:00 Clonidine (Catapres) 0.1 mg TID PO Last administered on 07/28/16 12:43; Admin Dose 0.1 MG; Start 07/19/16 at 09:00 Nifedipine (Procardia Xl) 30 mg QHS PO Last administered on 07/27/16 21:36; Admin Dose 30 MG; Start 07/20/16 at 21:00 Vancomycin HCl 125 mg 125 mg Q6 PO Last administered on 07/28/16 12:42; Admin Dose 125 MG; Start 07/21/16 at 19:00 Metronidazole (Flagyl 500 Mg (Pmx)) 100 ml @ 100 mls/hr Q8 IVPB Last administered on 07/28/16 05:28; Admin Dose 100 MLS/HR; Start 07/22/16 at 16:30 Lactobacillus Acidophilus/ Rhamnosus (Culturelle) 1 cap BID PO Last administered on 07/28/16 09:07; Admin Dose 1 CAP; Start 07/23/16 at 21:00 Ascorbic Acid (Vitamin C) 500 mg DAILY PO Last administered on 07/28/16 09:07 ; Admin Dose 500 MG; Start 07/26/16 at 09:00 ALE MCCONNELL Jul 28, 2016 14:28
[2016-07-28 14:44] LABS: PROTIME 18.5 Sec (12.2-14.2)
--- NOTE | 2016-07-28 16:18 | CONS ---
DATE OF ADMISSION: 07/09/2016 DATE OF CONSULTATION: 07/28/2016 TYPE OF CONSULTATION: Cardiology. REASON FOR CONSULTATION: Preoperative evaluation. REQUESTING PHYSICIAN: Ronnie Patel MD HISTORY OF PRESENT ILLNESS: Mr. Dove is a 71-year-old male with history of chronic obstructive pulmonary disease, hypertension, BPH, dementia, dyslipidemia, encephalopathy [facility] of UTI and stroke. He was initially admitted to [facility] 07/09/2016 with lower extremity edema, shortness of breath and findings of acute renal failure. Creatinine of 4.2. Patient was admitted with diagnosis of renal failure, COPD exacerbation, multi ple decubiti and loculated pleural effusion. The patient has been followed by infectious disease, G I, neuro and renal services throughout his hospitalization. Most recently, the patient has been on oral vancomycin and IV Flagyl for C difficile colitis and has undergone a colonoscopy. He has ongoi ng follow up by nephrology for ongoing renal failure and is being treated with broad spectrum antibi otics and is on baseline antihypertensives with continued labile and mildly elevated blood pressures at times. It was in the 150s most recently. The patient is receiving local care his heel decubitu s ulcer with plans for possible debridement by Dr. Simental with associated cardiology evaluation kendell henriquez. At this time, the patient denies chest pain and shortness of breath. The patient has had a 2D e cho done 07/18/2016. It was interpreted by myself revealing an EF of 60% with trace mitral, tricusp id regurgitation, diastolic dysfunction and no significant valvular abnormalities notably no signifi cant AF. Patient also during hospitalization had 2 negative troponins. The patient's most recent e lectrocardiogram from 07/09/2016 revealed rhythm most consistent with sinus rhythm, rate of 77, norm al axis, anteroseptal Q's, borderline anterior R-wave progression and nonspecific ST-T abnormalities . PAST MEDICAL HISTORY: As above in HPI. MEDICATIONS CURRENTLY IN HOSPITAL: 1. Vitamin C. 2. Culturelle. 3. Flagyl q.8h. 4. Vancomycin. 5. Procardia-XL 30 mg at bedtime. 6. Clonidine 0.1 t.i.d. 7. Ativan p.r.n. 8. Nasalide. 9. Benazepril 20 mg daily. 10. Dulcolax. 11. Aspirin 81 mg daily. 12. Proscar. 13. Theragran. 14. Cogentin. 15. Xalatan eyedrops. 16. Zyprexa. 17. DuoNeb. 18. Zofran. 19. [place]. ALLERGIES: NO KNOWN DRUG ALLERGIES. SOCIAL HISTORY: No tobacco, ETOH or illicit drug use. FAMILY HISTORY: No history of sudden cardiac or early CAD. REVIEW OF SYSTEMS: As above in HPI. CONSTITUTIONAL: No fevers, chills. PULMONARY: No current signs of respiratory failure. GASTROINTESTINAL: Clostridium difficile colitis. GENITOURINARY: Renal failure. PSYCHIATRIC: Positive psychiatric history. NEUROLOGIC: History of dementia. CARDIOVASCULAR: Diastolic dysfunction. PHYSICAL EXAMINATION: VITAL SIGNS: Temperature of 98, blood pressure most recently 157/72, pulse 77, respiratory 18, satu rating 94% on 2 liters. GENERAL: The patient is alert, awake, in no acute distress. NECK: JVP approximately 9 cm water. CHEST: Fair air movement throughout with decreased breath sounds at bases bilaterally. HEART: Regular rate and rhythm. Normal S1, S2, I/ systolic murmur, nondisplaced PMI. ABDOMEN: Positive bowel sounds, soft. EXTREMITIES: Somewhat contracted. Heel protectors on to prevent breakdown of the heels. LABORATORY VALUES: Most recently from the 06/27/2016: Sodium 140, potassium 4.1, creatinine 3.49, BUN 65, white count 12.4, hemoglobin low at 7.7, platelet count 217. UA borderline positive and HIV 1 and 2 negative. IMAGING STUDIES: Arterial ultrasound from the 07/25/2016 revealing no significant hemodynamic steno sis of the lower extremities. Renal ultrasound from the 07/24/2016 revealing bilateral echogenic ki dneys consistent with medical renal disease and venous ultrasound from the revealing no evidence of DVT in left lower extremity and a chest x-ray from the 07/20/2016 revealing a decreased bilatera l lower lung consolidations and small effusions. ECG: As above in HPI. No further electrocardiograms for my review at this time. IMPRESSION: 1. Preoperative evaluation prior to debridement of heel decubitus ulcers. 2. Hypertension, mildly elevated. 3. Abnormal electrocardiogram with anteroseptal Q's and normal ejection fraction by echo this admit . 4. Clostridium difficile Colitis. 5. Renal failure. 6. Encephalopathy. 7. Chronic obstructive pulmonary disease. 8. History of cerebrovascular accident. 9. Dyslipidemia. 10. Dementia. 11. Anemia. 12. Leukocytosis. 12. Coagulopathy. RECOMMENDATIONS: 1. At this time, would check serial EKGs to assess for any significant ongoing changes since admit. Repeat EKG in the morning. EKG for any complaints of chest pain or change in rhythm. 2. Would reassess patient for any ischemic episodes during this hospital admission and thus send tr oponins q.6h. x3 along with CK and CK-MB, given lack of adequate clearance of troponins and renal f ailure. 3. Continue the patient's broad-spectrum antibiotics and follow up all culture data. 4. Continue the patient's current benazepril and Procardia for control of blood pressure with consi deration given to initiation of beta darlyn in the preoperative state and additionally continue the patient's clonidine for blood pressure control at this time. 5. Follow up all the patient's culture data. 6. Check a fasting lipid panel for general risk stratification. 7. If the patient's troponins return negative x3 and the patient's EKG without significant changes, then at that time, the patient will be without cardiac contraindication to proceeding to the OR on current medications including newly started beta darlyn continued pre and postoperatively without f urther noninvasive evaluation. 8. The patient would be at moderate risk for cardiovascular complications due to comorbidities. Ad ditionally, assure the patient's respiratory status was satisfactory for surgery prior to proceeding . Thank you for allowing me to take part in the care of this patient. I will continue to follow along very closely with you with further recommendations to be made as the patient progresses through his inpatient hospital clinical course. Dictated By: PACHECO MCKNIGHT/MEAGAN Conf#: [id number] DID#: [id number] CC: RONNIE PATEL MD;*EndCC*
[2016-07-28 16:55] LABS: ADD UMIC YES; UR BILIRUBIN (Dip) NEGATIVE (NEGATIVE); UR BLOOD (Dip) 3+ (NEGATIVE); UR CLARITY CLEAR (CLEAR); UR COLOR BROWN (YELLOW); UR GLUCOSE (Dip) NEGATIVE (NEGATIVE); UR KETONES (Dip) NEGATIVE (NEGATIVE); UR LEUKOCYTE ESTERASE (Dip) NEGATIVE (NEGATIVE); UR NITRITE (Dip) NEGATIVE (NEGATIVE); UR TOTAL PROTEIN (Dip) 1+ (NEGATIVE); UR UROBILINOGEN (Dip) 0.2 E.U./dL (0.1-1.0)
[2016-07-28 17:03] LABS: URINE RBCS >200 /HPF (0)
[2016-07-28] MEDS: COLLAGENASE 30 GM TUBE TOP SCH (18:11)
[2016-07-28 19:11] LABS: TROPONIN-I 0.018 ng/ml (0.00-0.12)
[2016-07-28 19:15] LABS: CK-MB 2.44 ng/ml (0.0-2.4)
--- NOTE | 2016-07-28 19:30 | CONS ---
Date/Time of Note Date/Time of Note DATE: 07/28/16 TIME: 19:30 Assessment/Plan Assessment/Plan Chief Complaint/Hosp Course - leukocytosis, possible early sepsis - improving - infection of wounds of b/l heel due to MRSA, enterococcus sp and corynebacter jeikeium (grp JK); XR showed no bony abnormalities - unstageable decub of b/l heel - C diff colitis - s/p possible HCAP, Pt completed empiric cefepime (07/10/2016-07/19/2016); CXR on 07/20/2016 showed improvement. 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 Given by IV because Pt's often confused and PO intake can be affected. Will monitor CBC while Pt's on linezolid. - continue PO vancomycin (07/15/2016-) while Pt's on antibiotics - continue IV Flagyl (07/22/2016-) Management d/w DANIEL Garcia and Dr. Henderson Problems: Consultation Date/Type/Reason Admit Date/Time July 09, 2016 at 12:24 Initial Consult Date 07/11/16 Type of Consultation: Infectious Disease Referring Provider: RONNIE PATEL MD 24 HR Interval Summary Free Text/Dictation Pt denies pain, SOB, n/v/d, dysuria. No diarrhea today per d/w nursing staff. Exam/Review of Systems Vital Signs Vitals Vital Signs Date Time Temp Pulse Resp B/P Pulse Ox O2 Delivery O2 Flow Rate FiO2 07/28/16 13:27 2.0 07/28/16 08:00 Nasal Cannula 07/28/16 07:29 98.5 77 18 157/72 94 Intake and Output 07/27/16 07/27/16 07/28/16 15:00 23:00 07:00 Intake Total 400 ml 900 ml 440 ml Output Total 1000 ml 840 ml Balance 400 ml -100 ml -400 ml Exam Constitutional: alert, well developed, in NAD Head: atraumatic, normocephalic Eyes: nl sclera Neck: supple Respiratory: diminished breath sounds Cardiovascular: regular rate and rhythm Gastrointestinal: non-tender, soft Genitourinary: Avila catheter present Extremities: No cyanosis, No edema Neurological: answers simple questions appropriately. VILLASENOR Skin: nl turgor, other (see nurses note and photo in chart for details - bilateral heel and coccyx decubiti) Results Result Diagram: 07/28/169 07/28/169 Results 24 hrs Laboratory Tests Test 07/28/16 04:29 07/28/16 11:41 07/28/16 12:30 07/28/16 16:35 White Blood Count 12.4 H Red Blood Count 2.64 L Hemoglobin 7.7 L Hematocrit 24.3 L Mean Corpuscular Volume 92.0 Mean Corpuscular Hemoglobin 29.2 Mean Corpuscular Hemoglobin Concent 31.7 L Red Cell Distribution Width 14.6 H Platelet Count 217 Mean Platelet Volume 8.6 Neutrophils % 79.3 H Lymphocytes % 12.1 L Monocytes % 4.0 Eosinophils % 4.1 Basophils % 0.1 Nucleated Red Blood Cells % 0.0 Neutrophils # 9.8 H Lymphocytes # 1.5 Monocytes # 0.5 Eosinophils # 0.5 Basophils # 0.0 Nucleated Red Blood Cells # 0.0 Sodium Level 140 Potassium Level 4.1 Chloride Level 115 H Carbon Dioxide Level 18 L Anion Gap 11 Blood Urea Nitrogen 65 H Creatinine 3.49 H Glucose Level 82 Calcium Level 7.7 L Lab Scanned Report REFERENCE LAB Prothrombin Time 18.5 #H Prothrombin Time Ratio 1.4 INR International Normalized Ratio 1.53 Activated Partial Thromboplast Time 38.2 H Urine Color BROWN Urine Clarity CLEAR Urine pH 5.0 Urine Specific [place] 1.015 Urine Ketones NEGATIVE Urine Nitrite NEGATIVE Urine Bilirubin NEGATIVE Urine Urobilinogen 0.2 E.U./dL Urine Leukocyte Esterase NEGATIVE Urine Microscopic RBC >200 Urine Microscopic WBC 0-2 Urine Hemoglobin 3+ H Urine Glucose NEGATIVE Urine Total Protein 1+ H Test 07/28/16 18:04 Creatine Kinase 46 Creatine Kinase Index 5.3 Creatinine Kinase MB (Mass) 2.44 H Troponin I 0.018 Medications Medications Current Medications Acetaminophen (Tylenol Tab) 500 mg Q6H PRN PO PAIN AND OR ELEVATED TEMP; Start 07/09/16 at 20:30 Ondansetron HCl (Zofran Inj) 4 mg Q6H PRN IV NAUSEA AND/OR VOMITING; Start at 20:30 Aspirin (Aspirin) 81 mg DAILY PO Last administered on 07/28/16 09:07; Admin Dose 81 MG; Start 07/10/16 at 09:00 Benztropine Mesylate (Cogentin) 1 mg BID PO Last administered on 07/28/16 09: 07; Admin Dose 1 MG; Start 07/09/16 at 21:00 Finasteride (Proscar) 5 mg DAILY PO Last administered on 07/28/16 09:07; Admin Dose 5 MG; Start 07/10/16 at 09:00 Acetaminophen/ Hydrocodone Bitart ([place] (5/325)) 1 tab Q4 PRN PO SEVERE PAIN LEVEL 7-10 Last administered on 07/15/16 16:21; Admin Dose 1 TAB; Start at 20:30 Latanoprost (Xalatan) 1 drop QHS BOTH EYES Last administered on 07/27/16 21:40 ; Admin Dose 1 DROP; Start 07/09/16 at 21:00 Multivitamins Therapeutic (Theragran) 1 tab DAILY PO Last administered on 09:07; Admin Dose 1 TAB; Start 07/10/16 at 09:00 Olanzapine (Zyprexa) 5 mg QHS PO Last administered on 07/27/16 21:35; Admin Dose 5 MG; Start 07/09/16 at 21:00 Zinc Sulfate (Zinc Sulfate) 220 mg DAILY PO Last administered on 07/28/16 09: 06; Admin Dose 220 MG; Start 07/10/16 at 09:00 Acetaminophen (Tylenol Supp) 650 mg Q6H PRN [place] ELEVATED TEMPERATURE Last administered on 07/10/16 09:51; Admin Dose 650 MG; Start 07/10/16 at 09:30 Collagenase (Santyl) 1 applic DAILY TOP Last administered on 07/28/16 18:11; Admin Dose 1 APPLIC; Start 07/10/16 at 14:00 Bisacodyl (Dulcolax) 10 mg BID PO Last administered on 07/28/16 09:07; Admin Dose 10 MG; Start 07/13/16 at 15:00 Benazepril HCl (Lotensin) 20 mg DAILY PO Last administered on 07/28/16 09:07; Admin Dose 20 MG; Start 07/16/16 at 09:00 Lorazepam (Ativan) 0.5 mg Q6H PRN IV ANXIETY Last administered on 07/18/16 09: 58; Admin Dose 0.5 MG; Start 07/16/16 at 23:30 Zolpidem Tartrate (Ambien) 2.5 mg HS PRN PO INSOMNIA; Start 07/17/16 at 19:00 Epoetin Zana (Epogen (Esrd)) 6,000 units TuThSa@17 SC Last administered on 07/26 19:05; Admin Dose 6,000 UNITS; Start 07/17/16 at 20:00 Miscellaneous Information This patient ellis... PRN PRN XX WOUND CARE; Start at 07:00 Linezolid (Zyvox 600mg/D5W (Pmx)) 300 ml @ 300 mls/hr Q12 IVPB Last administered on 07/28/16 09:06; Admin Dose 300 MLS/HR; Start 07/18/16 at 11:00 Lorazepam (Ativan) 0.5 mg Q6H PRN PO ANXEITY Last administered on 07/19/16 22: 28; Admin Dose 0.5 MG; Start 07/18/16 at 16:00 Clonidine (Catapres) 0.1 mg TID PO Last administered on 07/28/16 12:43; Admin Dose 0.1 MG; Start 07/19/16 at 09:00 Nifedipine (Procardia Xl) 30 mg QHS PO Last administered on 07/27/16 21:36; Admin Dose 30 MG; Start 07/20/16 at 21:00 Vancomycin HCl 125 mg 125 mg Q6 PO Last administered on 07/28/16 18:11; Admin Dose 125 MG; Start 07/21/16 at 19:00 Metronidazole (Flagyl 500 Mg (Pmx)) 100 ml @ 100 mls/hr Q8 IVPB Last administered on 07/28/16 14:31; Admin Dose 100 MLS/HR; Start 07/22/16 at 16:30 Lactobacillus Acidophilus/ Rhamnosus (Culturelle) 1 cap BID PO Last administered on 07/28/16 09:07; Admin Dose 1 CAP; Start 07/23/16 at 21:00 Ascorbic Acid (Vitamin C) 500 mg DAILY PO Last administered on 07/28/16 09:07 ; Admin Dose 500 MG; Start 07/26/16 at 09:00 Metoprolol Tartrate (Lopressor) 25 mg BID PO ; Start 07/28/16 at 21:00 WADE PINK NP Jul 28, 2016 19:30
[2016-07-28 20:10] VITALS: BP 151/70; RESP 18
--- NOTE | 2016-07-28 20:21 | CONS ---
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 Will rpt UA & consider Eval if any abnormality Cont'd Hospitalization Reason: Pt on Epogen for Anemia Consultation Date/Type/Reason Admit Date/Time July 09, 2016 at 12:24 Initial Consult Date 07/11/16 Type of Consultation: Renal Referring Provider: RONNIE PATEL MD 24 HR Interval Summary Free Text/Dictation More alert but remains confused Exam/Review of Systems Vital Signs Vitals Vital Signs Date Time Temp Pulse Resp B/P Pulse Ox O2 Delivery O2 Flow Rate FiO2 07/28/16 20:10 98.6 77 18 151/70 97 07/28/16 13:27 2.0 07/28/16 08:00 Nasal Cannula Intake and Output 07/27/16 07/27/16 07/28/16 15:00 23:00 07:00 Intake Total 400 ml 900 ml 440 ml Output Total 1000 ml 840 ml Balance 400 ml -100 ml -400 ml Exam Constitutional: alert, well developed Psych: confusion, nl mood/affect, no complaints Head: atraumatic, normocephalic Eyes: EOMI, PERRL, nl conjunctiva, nl lids, nl sclera ENMT: nl external ears & nose, nl lips & teeth, nl nasal mucosa & septum Neck: non-tender, supple Respiratory: clear to auscultation, normal air movement Cardiovascular: nl pulses, regular rate and rhythm Gastrointestinal: nl liver, spleen, non-tender, soft Genitourinary - Male: other (tellez cath in place) Musculoskeletal: nl extremities to inspection, nl gait and stance Extremities: normal pulses Neurological: TRAUMA DOCTOR II-XII intact, nl mental status, nl speech, nl strength, other (pale) Skin: nl turgor, No rash or lesions Lymph: nl lymph nodes Results WBC has come down, Creat a bit worse Result Diagram: 07/28/16 0429 07/28/16 0429 Results 24 hrs Laboratory Tests Test 07/28/16 04:29 07/28/16 11:41 07/28/16 12:30 07/28/16 16:35 White Blood Count 12.4 H Red Blood Count 2.64 L Hemoglobin 7.7 L Hematocrit 24.3 L Mean Corpuscular Volume 92.0 Mean Corpuscular Hemoglobin 29.2 Mean Corpuscular Hemoglobin Concent 31.7 L Red Cell Distribution Width 14.6 H Platelet Count 217 Mean Platelet Volume 8.6 Neutrophils % 79.3 H Lymphocytes % 12.1 L Monocytes % 4.0 Eosinophils % 4.1 Basophils % 0.1 Nucleated Red Blood Cells % 0.0 Neutrophils # 9.8 H Lymphocytes # 1.5 Monocytes # 0.5 Eosinophils # 0.5 Basophils # 0.0 Nucleated Red Blood Cells # 0.0 Sodium Level 140 Potassium Level 4.1 Chloride Level 115 H Carbon Dioxide Level 18 L Anion Gap 11 Blood Urea Nitrogen 65 H Creatinine 3.49 H Glucose Level 82 Calcium Level 7.7 L Lab Scanned Report REFERENCE LAB Prothrombin Time 18.5 #H Prothrombin Time Ratio 1.4 INR International Normalized Ratio 1.53 Activated Partial Thromboplast Time 38.2 H Urine Color BROWN Urine Clarity CLEAR Urine pH 5.0 Urine Specific [place] 1.015 Urine Ketones NEGATIVE Urine Nitrite NEGATIVE Urine Bilirubin NEGATIVE Urine Urobilinogen 0.2 E.U./dL Urine Leukocyte Esterase NEGATIVE Urine Microscopic RBC >200 Urine Microscopic WBC 0-2 Urine Hemoglobin 3+ H Urine Glucose NEGATIVE Urine Total Protein 1+ H Test 07/28/16 18:04 Creatine Kinase 46 Creatine Kinase Index 5.3 Creatinine Kinase MB (Mass) 2.44 H Troponin I 0.018 Medications Medications Current Medications Acetaminophen (Tylenol Tab) 500 mg Q6H PRN PO PAIN AND OR ELEVATED TEMP; Start 07/09/16 at 20:30 Ondansetron HCl (Zofran Inj) 4 mg Q6H PRN IV NAUSEA AND/OR VOMITING; Start at 20:30 Aspirin (Aspirin) 81 mg DAILY PO Last administered on 07/28/16 09:07; Admin Dose 81 MG; Start 07/10/16 at 09:00 Benztropine Mesylate (Cogentin) 1 mg BID PO Last administered on 07/28/16 09: 07; Admin Dose 1 MG; Start 07/09/16 at 21:00 Finasteride (Proscar) 5 mg DAILY PO Last administered on 07/28/16 09:07; Admin Dose 5 MG; Start 07/10/16 at 09:00 Acetaminophen/ Hydrocodone Bitart ([place] (5/325)) 1 tab Q4 PRN PO SEVERE PAIN LEVEL 7-10 Last administered on 07/15/16 16:21; Admin Dose 1 TAB; Start at 20:30 Latanoprost (Xalatan) 1 drop QHS BOTH EYES Last administered on 07/27/16 21:40 ; Admin Dose 1 DROP; Start 07/09/16 at 21:00 Multivitamins Therapeutic (Theragran) 1 tab DAILY PO Last administered on 09:07; Admin Dose 1 TAB; Start 07/10/16 at 09:00 Olanzapine (Zyprexa) 5 mg QHS PO Last administered on 07/27/16 21:35; Admin Dose 5 MG; Start 07/09/16 at 21:00 Zinc Sulfate (Zinc Sulfate) 220 mg DAILY PO Last administered on 07/28/16 09: 06; Admin Dose 220 MG; Start 07/10/16 at 09:00 Acetaminophen (Tylenol Supp) 650 mg Q6H PRN [place] ELEVATED TEMPERATURE Last administered on 07/10/16 09:51; Admin Dose 650 MG; Start 07/10/16 at 09:30 Collagenase (Santyl) 1 applic DAILY TOP Last administered on 07/28/16 18:11; Admin Dose 1 APPLIC; Start 07/10/16 at 14:00 Bisacodyl (Dulcolax) 10 mg BID PO Last administered on 07/28/16 09:07; Admin Dose 10 MG; Start 07/13/16 at 15:00 Benazepril HCl (Lotensin) 20 mg DAILY PO Last administered on 07/28/16 09:07; Admin Dose 20 MG; Start 07/16/16 at 09:00 Lorazepam (Ativan) 0.5 mg Q6H PRN IV ANXIETY Last administered on 07/18/16 09: 58; Admin Dose 0.5 MG; Start 07/16/16 at 23:30 Zolpidem Tartrate (Ambien) 2.5 mg HS PRN PO INSOMNIA; Start 07/17/16 at 19:00 Epoetin Zana (Epogen (Esrd)) 6,000 units TuThSa@17 SC Last administered on 07/26 19:05; Admin Dose 6,000 UNITS; Start 07/17/16 at 20:00 Miscellaneous Information This patient ellis... PRN PRN XX WOUND CARE; Start at 07:00 Linezolid (Zyvox 600mg/D5W (Pmx)) 300 ml @ 300 mls/hr Q12 IVPB Last administered on 07/28/16 09:06; Admin Dose 300 MLS/HR; Start 07/18/16 at 11:00 Lorazepam (Ativan) 0.5 mg Q6H PRN PO ANXEITY Last administered on 07/19/16 22: 28; Admin Dose 0.5 MG; Start 07/18/16 at 16:00 Clonidine (Catapres) 0.1 mg TID PO Last administered on 07/28/16 12:43; Admin Dose 0.1 MG; Start 07/19/16 at 09:00 Nifedipine (Procardia Xl) 30 mg QHS PO Last administered on 07/27/16 21:36; Admin Dose 30 MG; Start 07/20/16 at 21:00 Vancomycin HCl 125 mg 125 mg Q6 PO Last administered on 07/28/16 18:11; Admin Dose 125 MG; Start 07/21/16 at 19:00 Metronidazole (Flagyl 500 Mg (Pmx)) 100 ml @ 100 mls/hr Q8 IVPB Last administered on 07/28/16 14:31; Admin Dose 100 MLS/HR; Start 07/22/16 at 16:30 Lactobacillus Acidophilus/ Rhamnosus (Culturelle) 1 cap BID PO Last administered on 07/28/16 09:07; Admin Dose 1 CAP; Start 07/23/16 at 21:00 Ascorbic Acid (Vitamin C) 500 mg DAILY PO Last administered on 07/28/16 09:07 ; Admin Dose 500 MG; Start 07/26/16 at 09:00 Metoprolol Tartrate (Lopressor) 25 mg BID PO ; Start 07/28/16 at 21:00 JUANA AYALA MD Jul 28, 2016 20:21
[2016-07-28] MEDS ORDERED: hydrALAzine 20 MG INJ IV PRN (20:30)
[2016-07-28] MEDS: OLANZAPINE 5 MG TAB PO SCH (20:48)
[2016-07-28] MEDS: METOPROLOL 25 MG TAB PO SCH (20:49)
[2016-07-28] MEDS: NIFEdipine (XL) 30 MG TAB PO SCH (20:50)
[2016-07-28] MEDS: LATANOPROST 0.005% 2.5 ML OPH BOTH EYES SCH (20:50)
--- NOTE | 2016-07-28 23:40 | CONS ---
Date/Time of Note Date/Time of Note DATE: 07/28/16 TIME: 23:38 Assessment/Plan Assessment/Plan Problems: (1) Decubitus ulcer of right heel, stage 4 (2) Decubitus ulcer of left heel, stage 2 (3) Peripheral vascular disease Additional Assessment/Plan Heel protection b/l feet at all times. Daily dressing change. Thank you again for involving me in the care of this patient. If you have any questions regarding this case, please feel free to contact me at pager: or reach me at mobile: [phone]. Consultation Date/Type/Reason Admit Date/Time July 09, 2016 at 12:24 Date of Consultation: Jul 26, 2016 Constitutional: requiring O2 Eyes: no complaints ENT: no complaints Respiratory: no complaints Cardiovascular: no complaints Gastrointestinal: no complaints Genitourinary: no complaints Musculoskeletal: no complaints Skin: skin lesions (pain from b/l heel upon dressing change) Neurologic: No confusion, No dizziness, No focal-weakness, No headache, No no complaints, No other, No seizure, No syncope Endocrine: No dry skin, No no complaints, No other, No polydypsia, No polyuria , No temp intolerance Lymphatic: No adenopathy, No lymphadema, No no complaints, No other, No tender nodes Psychological: confusion, nl mood/affect, no complaints Past Medical History Medical History: hypertension, other (COPD) Past Surgical History Past Surgical Hx: other Social History Alcohol Use: none Smoking Status: Never smoker Drug Use: none Exam/Review of Systems Vital Signs Vitals Vital Signs Date Time Temp Pulse Resp B/P Pulse Ox O2 Delivery O2 Flow Rate FiO2 07/28/16 20:15 Nasal Cannula 2.0 07/28/16 20:10 98.6 77 18 151/70 97 Intake and Output 07/27/16 07/27/16 07/28/16 15:00 23:00 07:00 Intake Total 400 ml 900 ml 440 ml Output Total 1000 ml 840 ml Balance 400 ml -100 ml -400 ml Results Result Diagram: 07/28/16 0429 07/28/16 0429 Results 24 hrs Laboratory Tests Test 07/28/16 04:29 07/28/16 11:41 07/28/16 12:30 07/28/16 16:35 White Blood Count 12.4 H Red Blood Count 2.64 L Hemoglobin 7.7 L Hematocrit 24.3 L Mean Corpuscular Volume 92.0 Mean Corpuscular Hemoglobin 29.2 Mean Corpuscular Hemoglobin Concent 31.7 L Red Cell Distribution Width 14.6 H Platelet Count 217 Mean Platelet Volume 8.6 Neutrophils % 79.3 H Lymphocytes % 12.1 L Monocytes % 4.0 Eosinophils % 4.1 Basophils % 0.1 Nucleated Red Blood Cells % 0.0 Neutrophils # 9.8 H Lymphocytes # 1.5 Monocytes # 0.5 Eosinophils # 0.5 Basophils # 0.0 Nucleated Red Blood Cells # 0.0 Sodium Level 140 Potassium Level 4.1 Chloride Level 115 H Carbon Dioxide Level 18 L Anion Gap 11 Blood Urea Nitrogen 65 H Creatinine 3.49 H Glucose Level 82 Calcium Level 7.7 L Lab Scanned Report REFERENCE LAB Prothrombin Time 18.5 #H Prothrombin Time Ratio 1.4 INR International Normalized Ratio 1.53 Activated Partial Thromboplast Time 38.2 H Urine Color BROWN Urine Clarity CLEAR Urine pH 5.0 Urine Specific [place] 1.015 Urine Ketones NEGATIVE Urine Nitrite NEGATIVE Urine Bilirubin NEGATIVE Urine Urobilinogen 0.2 E.U./dL Urine Leukocyte Esterase NEGATIVE Urine Microscopic RBC >200 Urine Microscopic WBC 0-2 Urine Hemoglobin 3+ H Urine Glucose NEGATIVE Urine Total Protein 1+ H Test 07/28/16 18:04 Creatine Kinase 46 Creatine Kinase Index 5.3 Creatinine Kinase MB (Mass) 2.44 H Troponin I 0.018 Medications Medications Current Medications Acetaminophen (Tylenol Tab) 500 mg Q6H PRN PO PAIN AND OR ELEVATED TEMP; Start 07/09/16 at 20:30 Ondansetron HCl (Zofran Inj) 4 mg Q6H PRN IV NAUSEA AND/OR VOMITING; Start at 20:30 Aspirin (Aspirin) 81 mg DAILY PO Last administered on 07/28/16 09:07; Admin Dose 81 MG; Start 07/10/16 at 09:00 Benztropine Mesylate (Cogentin) 1 mg BID PO Last administered on 07/28/16 20: 48; Admin Dose 1 MG; Start 07/09/16 at 21:00 Finasteride (Proscar) 5 mg DAILY PO Last administered on 07/28/16 09:07; Admin Dose 5 MG; Start 07/10/16 at 09:00 Acetaminophen/ Hydrocodone Bitart ([place] (5/325)) 1 tab Q4 PRN PO SEVERE PAIN LEVEL 7-10 Last administered on 07/15/16 16:21; Admin Dose 1 TAB; Start at 20:30 Latanoprost (Xalatan) 1 drop QHS BOTH EYES Last administered on 07/27/16 21:40 ; Admin Dose 1 DROP; Start 07/09/16 at 21:00 Multivitamins Therapeutic (Theragran) 1 tab DAILY PO Last administered on 09:07; Admin Dose 1 TAB; Start 07/10/16 at 09:00 Olanzapine (Zyprexa) 5 mg QHS PO Last administered on 07/28/16 20:48; Admin Dose 5 MG; Start 07/09/16 at 21:00 Zinc Sulfate (Zinc Sulfate) 220 mg DAILY PO Last administered on 07/28/16 09: 06; Admin Dose 220 MG; Start 07/10/16 at 09:00 Acetaminophen (Tylenol Supp) 650 mg Q6H PRN [place] ELEVATED TEMPERATURE Last administered on 07/10/16 09:51; Admin Dose 650 MG; Start 07/10/16 at 09:30 Collagenase (Santyl) 1 applic DAILY TOP Last administered on 07/28/16 18:11; Admin Dose 1 APPLIC; Start 07/10/16 at 14:00 Bisacodyl (Dulcolax) 10 mg BID PO Last administered on 07/28/16 20:49; Admin Dose 10 MG; Start 07/13/16 at 15:00 Benazepril HCl (Lotensin) 20 mg DAILY PO Last administered on 07/28/16 09:07; Admin Dose 20 MG; Start 07/16/16 at 09:00 Lorazepam (Ativan) 0.5 mg Q6H PRN IV ANXIETY Last administered on 07/18/16 09: 58; Admin Dose 0.5 MG; Start 07/16/16 at 23:30 Zolpidem Tartrate (Ambien) 2.5 mg HS PRN PO INSOMNIA; Start 07/17/16 at 19:00 Epoetin Zana (Epogen (Esrd)) 6,000 units TuThSa@17 SC Last administered on 07/26 19:05; Admin Dose 6,000 UNITS; Start 07/17/16 at 20:00 Miscellaneous Information This patient ellis... PRN PRN XX WOUND CARE; Start at 07:00 Linezolid (Zyvox 600mg/D5W (Pmx)) 300 ml @ 300 mls/hr Q12 IVPB Last administered on 07/28/16 20:48; Admin Dose 300 MLS/HR; Start 07/18/16 at 11:00 Lorazepam (Ativan) 0.5 mg Q6H PRN PO ANXEITY Last administered on 07/19/16 22: 28; Admin Dose 0.5 MG; Start 07/18/16 at 16:00 Clonidine (Catapres) 0.1 mg TID PO Last administered on 07/28/16 20:49; Admin Dose 0.1 MG; Start 07/19/16 at 09:00 Nifedipine (Procardia Xl) 30 mg QHS PO Last administered on 07/28/16 20:50; Admin Dose 30 MG; Start 07/20/16 at 21:00 Vancomycin HCl 125 mg 125 mg Q6 PO Last administered on 07/28/16 23:11; Admin Dose 125 MG; Start 07/21/16 at 19:00 Metronidazole (Flagyl 500 Mg (Pmx)) 100 ml @ 100 mls/hr Q8 IVPB Last administered on 07/28/16 22:03; Admin Dose 100 MLS/HR; Start 07/22/16 at 16:30 Lactobacillus Acidophilus/ Rhamnosus (Culturelle) 1 cap BID PO Last administered on 07/28/16 20:48; Admin Dose 1 CAP; Start 07/23/16 at 21:00 Ascorbic Acid (Vitamin C) 500 mg DAILY PO Last administered on 07/28/16 09:07 ; Admin Dose 500 MG; Start 07/26/16 at 09:00 Metoprolol Tartrate (Lopressor) 25 mg BID PO Last administered on 07/28/16 20: 49; Admin Dose 25 MG; Start 07/28/16 at 21:00 Hydralazine HCl (Apresoline) 10 mg Q4H PRN IV ELEVATED BLOOD PRESSURE; Start at 20:30 NIRAV GIMENEZ DPM Jul 28, 2016 23:39
--- NOTE | 2016-07-28 23:40 | PN ---
Date/Time of Note Date/Time of Note DATE: 07/28/16 TIME: 23:40 Assessment/Plan Lines/Catheters IV Catheter Type (from [facility]): [place] in Place (from [facility]): Yes Assessment/Plan Problems: (1) Acute renal failure Status: Acute Qualifiers: Acute renal failure type: unspecified Qualified Code: N17.9 - Acute renal failure, unspecified acute renal failure type (2) Colonic mass Status: Acute (3) Pulmonary mass Status: Acute (4) Decubitus ulcer of left heel, stage 2 (5) Decubitus ulcer of right heel, stage 4 (6) Peripheral vascular disease Assessment/Plan Continue current management. No surgery recommended for feet. Exam/Review of Systems Vital Signs Vitals Vital Signs Date Time Temp Pulse Resp B/P Pulse Ox O2 Delivery O2 Flow Rate FiO2 07/28/16 20:15 Nasal Cannula 2.0 07/28/16 20:10 98.6 77 18 151/70 97 Intake and Output 07/27/16 07/27/16 07/28/16 15:00 23:00 07:00 Intake Total 400 ml 900 ml 440 ml Output Total 1000 ml 840 ml Balance 400 ml -100 ml -400 ml Results Result Diagram: 07/28/16 0429 07/28/16 0429 NIRAV GIMENEZ DPM Jul 28, 2016 23:40
[2016-07-29 01:40] LABS: TROPONIN-I 0.02 ng/ml (0.00-0.12)
[2016-07-29 01:42] LABS: CK-MB 2.75 ng/ml (0.0-2.4)
[2016-07-29] MEDS: metroNIDAZOLE 500 MG/NS (PMX) 100 ML IVPB SCH ×3 (05:38→23:11)
[2016-07-29] MEDS: VANCOMYCIN HCL 250 MG/5ML POSYG PO SCH ×4 (05:39→23:43)
--- NOTE | 2016-07-29 07:12 | PN ---
DATE: 07/28/2016 SUBJECTIVE: No new complaints. OBJECTIVE: GENERAL: The patient is alert. The patient minimally responds to questioning. The eyes are open. VITAL SIGNS: Temperature 98.5, heart rate 77, respirations 18, blood pressure _ ___, saturation 94% on 2 liters nasal cannula. ABDOMEN: Soft. EXTREMITIES: The heel wounds are almost the same as yesterday. LABORATORIES: Slightly dropped today to 12,400 with 79% segmented, hemoglobin 7.7, hematocrit 24.3. Chemistry: Sodium and potassium are normal. BUN 65, creatinine 3.49. Calcium 7.7. ASSESSMENT AND PLAN: The patient with multiple comorbidities who has been admitted for other medical problems, but they found that the patient has bilateral heel decubitus ulcer and stage I and II sacrococcygeal pressure ulcers. the heel ulcers granulating gradually, from the periphery. PLAN: I think this patient needs surgical excisional debridement of the heels , mainly the right side and I am planning to do that, but before proceeding with that, we have to have cardiology clearance for general anesthesia. I talked to Tere, the nurse practitioner for Dr. Rene, to request the cardiology clearance. As soon as the cardiologic clearance is ready, they are going to proceed with booking the patient for operation. Dictated By: LISSETH RIVERS/MEAGAN Conf#: [id number] DID#: [id number] MTDD
[2016-07-29 07:42] VITALS: BP 174/93; RESP 20
[2016-07-29 07:46] LABS: ADD SCAN DIFF NO
[2016-07-29 08:00] LABS: BASOPHILS % 0.2 % (0.0-2.0); EOSINOPHILS # 0.6 10^3/ul (0.0-0.5); EOSINOPHILS % 3.9 % (0.0-7.0); HEMATOCRIT 34.2 % (42.0-52.0); HEMOGLOBIN 11.1 g/dl (14.0-18.0); LYMPHOCYTES # 1.5 10^3/ul (0.8-2.9); LYMPHOCYTES % 9.9 % (15.0-51.0); MEAN CORPUSCULAR HEMOGLOBIN 29.4 pg (29.0-33.0); MEAN CORPUSCULAR HGB CONC 32.5 g/dl (32.0-37.0); MEAN CORPUSCULAR VOLUME 90.5 fl (82.0-101.0); MEAN PLATELET VOLUME 8.4 fl (7.4-10.4); MONOCYTE # 0.5 10^3/ul (0.3-0.9); MONOCYTES % 3.4 % (0.0-11.0); NEUTROPHIL # 12.7 10^3/ul (1.6-7.5); NEUTROPHILS % 82.2 % (39.0-77.0); PLATELET COUNT 204 10^3/UL (140-415); RED BLOOD COUNT 3.78 10^6/ul (4.70-6.10); RED CELL DISTRIBUTION WIDTH 14.7 % (11.5-14.5); WHITE BLOOD COUNT 15.5 10^3/ul (4.8-10.8)
[2016-07-29 08:30] LABS: TROPONIN-I 0.028 ng/ml (0.00-0.12)
[2016-07-29 08:34] LABS: CHOL/HDL RATIO 2.5 RATIO
[2016-07-29 08:44] LABS: CK-MB 2.68 ng/ml (0.0-2.4)
[2016-07-29] MEDS: CALCIUM CARBONATE 750 MG CHEW TAB PO SCH ×3 (08:45→18:51)
--- NOTE | 2016-07-29 09:07 | CONS ---
Date/Time of Note Date/Time of Note DATE: 07/29/16 TIME: 09:05 Assessment/Plan Assessment/Plan Additional Assessment/Plan 1. Preoperative evaluation prior to debridement of heel decubitus ulcers- no CP now, no evidence of significant CHF - OK to proceed with debridement as needed. 2. Hypertension, mildly elevated- tim add Rx as needed. 3. Abnormal electrocardiogram with anteroseptal Q's and normal ejection fraction by echo this admit- no CP ow. 4. Clostridium difficile Colitis- Rx per primary team. 5. Renal failure. 6. Encephalopathy. 7. Chronic obstructive pulmonary disease- no wheezing, primary team follows. 8. History of cerebrovascular accident- stable now. 9. Dyslipidemia. 10. Dementia. 11. Anemia. 12. Leukocytosis. 12. Coagulopathy. Consultation Date/Type/Reason Admit Date/Time July 09, 2016 at 12:24 Initial Consult Date 07/26/16 Type of Consultation: Renal Referring Provider: RONNIE PATEL MD 24 HR Interval Summary Free Text/Dictation NO acute events - surgery to follow. ROS: No fever, no chills, no nausea, no vomiting, no diarrhea/constipation No recent weight changes No chest pain, no PND, no orthopnea No dizziness, blurred vision No thirst, no heat or cold intolerance Exam/Review of Systems Vital Signs Vitals Vital Signs Date Time Temp Pulse Resp B/P Pulse Ox O2 Delivery O2 Flow Rate FiO2 07/29/16 07:42 97.8 70 20 174/93 93 07/29/16 02:29 2.0 07/28/16 20:15 Nasal Cannula Intake and Output 07/28/16 07/28/16 07/29/16 15:00 23:00 07:00 Intake Total 1060 ml 1000 ml Output Total 700 ml 640 ml Balance 360 ml 360 ml Exam General: WN/WD/NAD, AOx 2-3 HEENT: Unicetric/atraumatic/EOMI (follow commands) NECK: JVD elevated to 8 cm , no thyromegaly Lymph: no lymphadenopathy HEART: regular with no S3, II/ systolic murmur at apex LUNGS: Coarse sounds ABD: soft, NT, ND, +BS : Intact Neuro: non focal SKIN: chronic changes EXT: 1+ edema, chronic changes Results Result Diagram: 07/29/16 0625 07/28/16 0429 Results 24 hrs Laboratory Tests Test 07/28/16 11:41 07/28/16 12:30 07/28/16 16:35 07/28/16 18:04 Lab Scanned Report REFERENCE LAB Prothrombin Time 18.5 #H Prothrombin Time Ratio 1.4 INR International Normalized Ratio 1.53 Activated Partial Thromboplast Time 38.2 H Urine Color BROWN Urine Clarity CLEAR Urine pH 5.0 Urine Specific [place] 1.015 Urine Ketones NEGATIVE Urine Nitrite NEGATIVE Urine Bilirubin NEGATIVE Urine Urobilinogen 0.2 E.U./dL Urine Leukocyte Esterase NEGATIVE Urine Microscopic RBC >200 Urine Microscopic WBC 0-2 Urine Hemoglobin 3+ H Urine Glucose NEGATIVE Urine Total Protein 1+ H Creatine Kinase 46 Creatine Kinase Index 5.3 Creatinine Kinase MB (Mass) 2.44 H Troponin I 0.018 Test 07/29/16 00:45 07/29/16 06:25 07/29/16 07:19 Creatine Kinase 40 47 Creatine Kinase Index 6.9 5.7 Creatinine Kinase MB (Mass) 2.75 H 2.68 H Troponin I 0.020 0.028 White Blood Count 15.5 #H Red Blood Count 3.78 #L Hemoglobin 11.1 #L Hematocrit 34.2 #L Mean Corpuscular Volume 90.5 Mean Corpuscular Hemoglobin 29.4 Mean Corpuscular Hemoglobin Concent 32.5 Red Cell Distribution Width 14.7 H Platelet Count 204 Mean Platelet Volume 8.4 Neutrophils % 82.2 H Lymphocytes % 9.9 L Monocytes % 3.4 Eosinophils % 3.9 Basophils % 0.2 Nucleated Red Blood Cells % 0.0 Neutrophils # 12.7 H Lymphocytes # 1.5 Monocytes # 0.5 Eosinophils # 0.6 H Basophils # 0.0 Nucleated Red Blood Cells # 0.0 Triglycerides Level 61 Cholesterol Level 76 L LDL Cholesterol, Calculated 34 HDL Cholesterol 30 L Cholesterol/HDL Ratio 2.5 Lab Scanned Report BLOOD TRANSFUSION Medications Medications Current Medications Acetaminophen (Tylenol Tab) 500 mg Q6H PRN PO PAIN AND OR ELEVATED TEMP; Start 07/09/16 at 20:30 Ondansetron HCl (Zofran Inj) 4 mg Q6H PRN IV NAUSEA AND/OR VOMITING; Start at 20:30 Aspirin (Aspirin) 81 mg DAILY PO Last administered on 07/28/16t 09:07; Admin Dose 81 MG; Start 07/10/16 at 09:00 Benztropine Mesylate (Cogentin) 1 mg BID PO Last administered on 07/28/16 20: 48; Admin Dose 1 MG; Start 07/09/16 at 21:00 Finasteride (Proscar) 5 mg DAILY PO Last administered on 07/28/16 09:07; Admin Dose 5 MG; Start 07/10/16 at 09:00 Acetaminophen/ Hydrocodone Bitart ([place] (5/325)) 1 tab Q4 PRN PO SEVERE PAIN LEVEL 7-10 Last administered on 07/15/16 16:21; Admin Dose 1 TAB; Start at 20:30 Latanoprost (Xalatan) 1 drop QHS BOTH EYES Last administered on 07/27/16 21:40 ; Admin Dose 1 DROP; Start 07/09/16 at 21:00 Multivitamins Therapeutic (Theragran) 1 tab DAILY PO Last administered on 09:07; Admin Dose 1 TAB; Start 07/10/16 at 09:00 Olanzapine (Zyprexa) 5 mg QHS PO Last administered on 07/28/16 20:48; Admin Dose 5 MG; Start 07/09/16 at 21:00 Zinc Sulfate (Zinc Sulfate) 220 mg DAILY PO Last administered on 07/28/16 09: 06; Admin Dose 220 MG; Start 07/10/16 at 09:00 Acetaminophen (Tylenol Supp) 650 mg Q6H PRN [place] ELEVATED TEMPERATURE Last administered on 07/10/16 09:51; Admin Dose 650 MG; Start 07/10/16 at 09:30 Collagenase (Santyl) 1 applic DAILY TOP Last administered on 07/28/16 18:11; Admin Dose 1 APPLIC; Start 07/10/16 at 14:00 Bisacodyl (Dulcolax) 10 mg BID PO Last administered on 07/28/16 20:49; Admin Dose 10 MG; Start 07/13/16 at 15:00 Benazepril HCl (Lotensin) 20 mg DAILY PO Last administered on 07/28/16 09:07; Admin Dose 20 MG; Start 07/16/16 at 09:00 Lorazepam (Ativan) 0.5 mg Q6H PRN IV ANXIETY Last administered on 07/18/16 09: 58; Admin Dose 0.5 MG; Start 07/16/16 at 23:30 Zolpidem Tartrate (Ambien) 2.5 mg HS PRN PO INSOMNIA; Start 07/17/16 at 19:00 Epoetin Zana (Epogen (Esrd)) 6,000 units TuThSa@17 SC Last administered on 07/26 19:05; Admin Dose 6,000 UNITS; Start 07/17/16 at 20:00 Miscellaneous Information This patient ellis... PRN PRN XX WOUND CARE; Start at 07:00 Linezolid (Zyvox 600mg/D5W (Pmx)) 300 ml @ 300 mls/hr Q12 IVPB Last administered on 07/28/16 20:48; Admin Dose 300 MLS/HR; Start 07/18/16 at 11:00 Lorazepam (Ativan) 0.5 mg Q6H PRN PO ANXEITY Last administered on 07/19/16 22: 28; Admin Dose 0.5 MG; Start 07/18/16 at 16:00 Clonidine (Catapres) 0.1 mg TID PO Last administered on 07/28/16 20:49; Admin Dose 0.1 MG; Start 07/19/16 at 09:00 Nifedipine (Procardia Xl) 30 mg QHS PO Last administered on 07/28/16 20:50; Admin Dose 30 MG; Start 07/20/16 at 21:00 Vancomycin HCl 125 mg 125 mg Q6 PO Last administered on 07/29/16 05:39; Admin Dose 125 MG; Start 07/21/16 at 19:00 Metronidazole (Flagyl 500 Mg (Pmx)) 100 ml @ 100 mls/hr Q8 IVPB Last administered on 07/29/16 05:38; Admin Dose 100 MLS/HR; Start 07/22/16 at 16:30 Lactobacillus Acidophilus/ Rhamnosus (Culturelle) 1 cap BID PO Last administered on 07/28/16 20:48; Admin Dose 1 CAP; Start 07/23/16 at 21:00 Ascorbic Acid (Vitamin C) 500 mg DAILY PO Last administered on 07/28/16 09:07 ; Admin Dose 500 MG; Start 07/26/16 at 09:00 Metoprolol Tartrate (Lopressor) 25 mg BID PO Last administered on 07/28/16t 20: 49; Admin Dose 25 MG; Start 07/28/16 at 21:00 Hydralazine HCl (Apresoline) 10 mg Q4H PRN IV ELEVATED BLOOD PRESSURE; Start at 20:30 ADITYA STANFORD MD Jul 29, 2016 09:07
[2016-07-29] MEDS: BENZTROPINE 1 MG TAB PO SCH ×2 (09:46→21:38)
[2016-07-29] MEDS: LINEZOLID 600 MG/D5W (PMX) 300 ML IVPB SCH ×2 (09:46→21:37)
[2016-07-29] MEDS: ZINC SULFATE 220 MG CAP PO SCH (09:46)
[2016-07-29] MEDS: BISACODYL (EC) 5 MG TAB PO SCH ×2 (09:47→21:37)
[2016-07-29] MEDS: ASCORBIC ACID 500 MG TAB PO SCH (09:47)
[2016-07-29] MEDS: ASPIRIN 81 MG TAB PO SCH (09:47)
[2016-07-29] MEDS: PANTOPRAZOLE (EC) 40 MG TAB PO SCH (09:47)
[2016-07-29] MEDS: FINASTERIDE 5 MG TAB PO SCH (09:47)
[2016-07-29] MEDS: LACTOBACILLUS RHAMNOSUS CAP PO SCH ×2 (09:47→21:38)
[2016-07-29] MEDS: BENAZEPRIL 20 MG TAB PO SCH (09:48)
[2016-07-29] MEDS: METOPROLOL 25 MG TAB PO SCH ×2 (09:48→21:39)
[2016-07-29] MEDS: MULTIVITAMINS THERAPEUTIC TAB PO SCH (09:49)
[2016-07-29] MEDS: COLLAGENASE 30 GM TUBE TOP SCH (09:58)
[2016-07-29 11:14] LABS: CALCIUM 8.1 mg/dl (8.4-10.2); CREATININE 3.29 mg/dl (0.61-1.24); POTASSIUM 4.1 mmol/L (3.5-5.1)
--- NOTE | 2016-07-29 12:19 | CONS ---
Date/Time of Note Date/Time of Note DATE: 07/29/16 TIME: 12:19 Consultation Date/Type/Reason Admit Date/Time July 09, 2016 at 12:24 Type of Consultation: Renal Referring Provider: RONNIE PATEL MD Exam/Review of Systems Vital Signs Vitals Vital Signs Date Time Temp Pulse Resp B/P Pulse Ox O2 Delivery O2 Flow Rate FiO2 07/29/16 07:42 97.8 70 20 174/93 93 07/29/16 02:29 2.0 07/28/16 20:15 Nasal Cannula Intake and Output 07/28/16 07/28/16 07/29/16 15:00 23:00 07:00 Intake Total 1060 ml 1000 ml Output Total 700 ml 640 ml Balance 360 ml 360 ml Results Result Diagram: 07/29/16 0625 07/29/16 0625 Results 24 hrs Laboratory Tests Test 07/28/16 12:30 07/28/16 16:35 07/28/16 18:04 07/29/16 00:45 Prothrombin Time 18.5 #H Prothrombin Time Ratio 1.4 INR International Normalized Ratio 1.53 Activated Partial Thromboplast Time 38.2 H Urine Color BROWN Urine Clarity CLEAR Urine pH 5.0 Urine Specific [place] 1.015 Urine Ketones NEGATIVE Urine Nitrite NEGATIVE Urine Bilirubin NEGATIVE Urine Urobilinogen 0.2 E.U./dL Urine Leukocyte Esterase NEGATIVE Urine Microscopic RBC >200 Urine Microscopic WBC 0-2 Urine Hemoglobin 3+ H Urine Glucose NEGATIVE Urine Total Protein 1+ H Creatine Kinase 46 40 Creatine Kinase Index 5.3 6.9 Creatinine Kinase MB (Mass) 2.44 H 2.75 H Troponin I 0.018 0.020 Test 07/29/16 06:25 07/29/16 07:19 White Blood Count 15.5 #H Red Blood Count 3.78 #L Hemoglobin 11.1 #L Hematocrit 34.2 #L Mean Corpuscular Volume 90.5 Mean Corpuscular Hemoglobin 29.4 Mean Corpuscular Hemoglobin Concent 32.5 Red Cell Distribution Width 14.7 H Platelet Count 204 Mean Platelet Volume 8.4 Neutrophils % 82.2 H Lymphocytes % 9.9 L Monocytes % 3.4 Eosinophils % 3.9 Basophils % 0.2 Nucleated Red Blood Cells % 0.0 Neutrophils # 12.7 H Lymphocytes # 1.5 Monocytes # 0.5 Eosinophils # 0.6 H Basophils # 0.0 Nucleated Red Blood Cells # 0.0 Sodium Level 143 Potassium Level 4.1 Chloride Level 117 H Carbon Dioxide Level 16 L Anion Gap 14 Blood Urea Nitrogen 62 H Creatinine 3.29 H Glucose Level 87 Calcium Level 8.1 L Creatine Kinase 47 Creatine Kinase Index 5.7 Creatinine Kinase MB (Mass) 2.68 H Troponin I 0.028 Triglycerides Level 61 Cholesterol Level 76 L LDL Cholesterol, Calculated 34 HDL Cholesterol 30 L Cholesterol/HDL Ratio 2.5 Lab Scanned Report BLOOD TRANSFUSION Medications Medications Current Medications Acetaminophen (Tylenol Tab) 500 mg Q6H PRN PO PAIN AND OR ELEVATED TEMP; Start 07/09/16 at 20:30 Ondansetron HCl (Zofran Inj) 4 mg Q6H PRN IV NAUSEA AND/OR VOMITING; Start at 20:30 Aspirin (Aspirin) 81 mg DAILY PO Last administered on 07/29/16 09:47; Admin Dose 81 MG; Start 07/10/16 at 09:00 Benztropine Mesylate (Cogentin) 1 mg BID PO Last administered on 07/29/16 09: 46; Admin Dose 1 MG; Start 07/09/16 at 21:00 Finasteride (Proscar) 5 mg DAILY PO Last administered on 07/29/16 09:47; Admin Dose 5 MG; Start 07/10/16 at 09:00 Acetaminophen/ Hydrocodone Bitart ([place] (5/325)) 1 tab Q4 PRN PO SEVERE PAIN LEVEL 7-10 Last administered on 07/15/16 16:21; Admin Dose 1 TAB; Start at 20:30 Latanoprost (Xalatan) 1 drop QHS BOTH EYES Last administered on 07/27/16 21:40 ; Admin Dose 1 DROP; Start 07/09/16 at 21:00 Multivitamins Therapeutic (Theragran) 1 tab DAILY PO Last administered on 09:49; Admin Dose 1 TAB; Start 07/10/16 at 09:00 Olanzapine (Zyprexa) 5 mg QHS PO Last administered on 07/28/16 20:48; Admin Dose 5 MG; Start 07/09/16 at 21:00 Zinc Sulfate (Zinc Sulfate) 220 mg DAILY PO Last administered on 07/29/16 09: 46; Admin Dose 220 MG; Start 07/10/16 at 09:00 Acetaminophen (Tylenol Supp) 650 mg Q6H PRN [place] ELEVATED TEMPERATURE Last administered on 07/10/16 09:51; Admin Dose 650 MG; Start 07/10/16 at 09:30 Collagenase (Santyl) 1 applic DAILY TOP Last administered on 07/29/16 09:58; Admin Dose 1 APPLIC; Start 07/10/16 at 14:00 Bisacodyl (Dulcolax) 10 mg BID PO Last administered on 07/29/16 09:47; Admin Dose 10 MG; Start 07/13/16 at 15:00 Benazepril HCl (Lotensin) 20 mg DAILY PO Last administered on 07/29/16 09:48; Admin Dose 20 MG; Start 07/16/16 at 09:00 Lorazepam (Ativan) 0.5 mg Q6H PRN IV ANXIETY Last administered on 07/18/16 09: 58; Admin Dose 0.5 MG; Start 07/16/16 at 23:30 Zolpidem Tartrate (Ambien) 2.5 mg HS PRN PO INSOMNIA; Start 07/17/16 at 19:00 Epoetin Zana (Epogen (Esrd)) 6,000 units TuThSa@17 SC Last administered on 07/26 19:05; Admin Dose 6,000 UNITS; Start 07/17/16 at 20:00 Miscellaneous Information This patient ellis... PRN PRN XX WOUND CARE; Start at 07:00 Linezolid (Zyvox 600mg/D5W (Pmx)) 300 ml @ 300 mls/hr Q12 IVPB Last administered on 07/29/16 09:46; Admin Dose 300 MLS/HR; Start 07/18/16 at 11:00 Lorazepam (Ativan) 0.5 mg Q6H PRN PO ANXEITY Last administered on 07/19/16 22: 28; Admin Dose 0.5 MG; Start 07/18/16 at 16:00 Clonidine (Catapres) 0.1 mg TID PO Last administered on 07/29/16 09:48; Admin Dose 0.1 MG; Start 07/19/16 at 09:00 Nifedipine (Procardia Xl) 30 mg QHS PO Last administered on 07/28/16 20:50; Admin Dose 30 MG; Start 07/20/16 at 21:00 Vancomycin HCl 125 mg 125 mg Q6 PO Last administered on 07/29/16 05:39; Admin Dose 125 MG; Start 07/21/16 at 19:00 Metronidazole (Flagyl 500 Mg (Pmx)) 100 ml @ 100 mls/hr Q8 IVPB Last administered on 07/29/16 05:38; Admin Dose 100 MLS/HR; Start 07/22/16 at 16:30 Lactobacillus Acidophilus/ Rhamnosus (Culturelle) 1 cap BID PO Last administered on 07/29/16 09:47; Admin Dose 1 CAP; Start 07/23/16 at 21:00 Ascorbic Acid (Vitamin C) 500 mg DAILY PO Last administered on 07/29/16 09:47 ; Admin Dose 500 MG; Start 07/26/16 at 09:00 Metoprolol Tartrate (Lopressor) 25 mg BID PO Last administered on 07/29/16 09: 48; Admin Dose 25 MG; Start 07/28/16 at 21:00 Hydralazine HCl (Apresoline) 10 mg Q4H PRN IV ELEVATED BLOOD PRESSURE; Start at 20:30 TACOS GREEN MD Jul 29, 2016 12:19
[2016-07-29 14:42] VITALS: BP 171/80; PULSE 65; RESP 18
--- NOTE | 2016-07-29 15:59 | RADRPT ---
Vent Rate: 69 bpm RR Interval: 0 msec MA Interval: 144 msec QRS Duration: 70 msec QT Interval: 396 msec QTC Interval: 424 msec P-R-T [place]: 0 - -6 - 30 degrees Normal sinus rhythm Low voltage QRS Cannot rule out Anterior infarct , age undetermined Abnormal ECG Electronically Signed By: Mahesh Prcie [id number]
--- NOTE | 2016-07-29 16:31 | CONS ---
Date/Time of Note Date/Time of Note DATE: 07/29/16 TIME: 16:29 Assessment/Plan Assessment/Plan Additional Assessment/Plan 1. Acute kidney injury, Pre- Renal SRAVANTHI on CKD stage III, Hx of BPH.- Non Oliguric 2. Hypertension. 3. Chronic obstructive pulmonary disease. 4. Benign prostatic hypertrophy. 5. Loculated pleural effusion. 6. Multiple decubiti 7. Cerebrovascular accident. 8. Dyslipidemia. 9. Dementia with behavioral disturbance. 10. Metabolic Acidosis Renal function is stable Pt is non oliguric, K and Na wnl Cont current Rx and plan On Truong-I, Nifedipine, Clonidine, Hydralazine prn Will order low dose bictra for acidosis. No acute indication for HD at this time Consultation Date/Type/Reason Admit Date/Time July 09, 2016 at 12:24 Type of Consultation: Renal Referring Provider: RONNIE PATEL MD 24 HR Interval Summary Free Text/Dictation No new complaints Exam/Review of Systems Vital Signs Vitals Vital Signs Date Time Temp Pulse Resp B/P Pulse Ox O2 Delivery O2 Flow Rate FiO2 07/29/16 14:42 65 18 171/80 94 Room Air 07/29/16 08:00 2.0 07/29/16 07:42 97.8 Intake and Output 07/28/16 07/28/16 07/29/16 14:59 22:59 06:59 Intake Total 1060 ml 1000 ml Output Total 700 ml 640 ml Balance 360 ml 360 ml Exam Constitutional: No distress ENMT: mucosa pink and moist Neck: No jvd Respiratory: No diminished breath sounds, No labored breathing Cardiovascular: regular rate and rhythm, No edema Gastrointestinal: non-tender, soft Neurological: No lethargic Results Result Diagram: 07/29/1625 07/29/16 0625 Results 24 hrs Laboratory Tests Test 07/28/16 16:35 07/28/16 18:04 07/29/16 00:45 07/29/16 06:25 Urine Color BROWN Urine Clarity CLEAR Urine pH 5.0 Urine Specific [place] 1.015 Urine Ketones NEGATIVE Urine Nitrite NEGATIVE Urine Bilirubin NEGATIVE Urine Urobilinogen 0.2 E.U./dL Urine Leukocyte Esterase NEGATIVE Urine Microscopic RBC >200 Urine Microscopic WBC 0-2 Urine Hemoglobin 3+ H Urine Glucose NEGATIVE Urine Total Protein 1+ H Creatine Kinase 46 40 47 Creatine Kinase Index 5.3 6.9 5.7 Creatinine Kinase MB (Mass) 2.44 H 2.75 H 2.68 H Troponin I 0.018 0.020 0.028 White Blood Count 15.5 #H Red Blood Count 3.78 #L Hemoglobin 11.1 #L Hematocrit 34.2 #L Mean Corpuscular Volume 90.5 Mean Corpuscular Hemoglobin 29.4 Mean Corpuscular Hemoglobin Concent 32.5 Red Cell Distribution Width 14.7 H Platelet Count 204 Mean Platelet Volume 8.4 Neutrophils % 82.2 H Lymphocytes % 9.9 L Monocytes % 3.4 Eosinophils % 3.9 Basophils % 0.2 Nucleated Red Blood Cells % 0.0 Neutrophils # 12.7 H Lymphocytes # 1.5 Monocytes # 0.5 Eosinophils # 0.6 H Basophils # 0.0 Nucleated Red Blood Cells # 0.0 Sodium Level 143 Potassium Level 4.1 Chloride Level 117 H Carbon Dioxide Level 16 L Anion Gap 14 Blood Urea Nitrogen 62 H Creatinine 3.29 H Glucose Level 87 Calcium Level 8.1 L Triglycerides Level 61 Cholesterol Level 76 L LDL Cholesterol, Calculated 34 HDL Cholesterol 30 L Cholesterol/HDL Ratio 2.5 Test 07/29/16 07:19 Lab Scanned Report BLOOD TRANSFUSION Medications Medications Current Medications Acetaminophen (Tylenol Tab) 500 mg Q6H PRN PO PAIN AND OR ELEVATED TEMP; Start 07/09/16 at 20:30 Ondansetron HCl (Zofran Inj) 4 mg Q6H PRN IV NAUSEA AND/OR VOMITING; Start at 20:30 Aspirin (Aspirin) 81 mg DAILY PO Last administered on 07/29/16 09:47; Admin Dose 81 MG; Start 07/10/16 at 09:00 Benztropine Mesylate (Cogentin) 1 mg BID PO Last administered on 07/29/16 09: 46; Admin Dose 1 MG; Start 07/09/16 at 21:00 Finasteride (Proscar) 5 mg DAILY PO Last administered on 07/29/16 09:47; Admin Dose 5 MG; Start 07/10/16 at 09:00 Acetaminophen/ Hydrocodone Bitart ([place] (5/325)) 1 tab Q4 PRN PO SEVERE PAIN LEVEL 7-10 Last administered on 07/15/16 16:21; Admin Dose 1 TAB; Start at 20:30 Latanoprost (Xalatan) 1 drop QHS BOTH EYES Last administered on 07/27/16 21:40 ; Admin Dose 1 DROP; Start 07/09/16 at 21:00 Multivitamins Therapeutic (Theragran) 1 tab DAILY PO Last administered on 09:49; Admin Dose 1 TAB; Start 07/10/16 at 09:00 Olanzapine (Zyprexa) 5 mg QHS PO Last administered on 07/28/16 20:48; Admin Dose 5 MG; Start 07/09/16 at 21:00 Zinc Sulfate (Zinc Sulfate) 220 mg DAILY PO Last administered on 07/29/16 09: 46; Admin Dose 220 MG; Start 07/10/16 at 09:00 Acetaminophen (Tylenol Supp) 650 mg Q6H PRN [place] ELEVATED TEMPERATURE Last administered on 07/10/16 09:51; Admin Dose 650 MG; Start 07/10/16 at 09:30 Collagenase (Santyl) 1 applic DAILY TOP Last administered on 07/29/16 09:58; Admin Dose 1 APPLIC; Start 07/10/16 at 14:00 Bisacodyl (Dulcolax) 10 mg BID PO Last administered on 07/29/16 09:47; Admin Dose 10 MG; Start 07/13/16 at 15:00 Benazepril HCl (Lotensin) 20 mg DAILY PO Last administered on 07/29/16 09:48; Admin Dose 20 MG; Start 07/16/16 at 09:00 Zolpidem Tartrate (Ambien) 2.5 mg HS PRN PO INSOMNIA; Start 07/17/16 at 19:00 Epoetin Zana (Epogen (Esrd)) 6,000 units TuThSa@17 SC Last administered on 07/26 19:05; Admin Dose 6,000 UNITS; Start 07/17/16 at 20:00 Miscellaneous Information This patient ellis... PRN PRN XX WOUND CARE; Start at 07:00 Linezolid (Zyvox 600mg/D5W (Pmx)) 300 ml @ 300 mls/hr Q12 IVPB Last administered on 07/29/16 09:46; Admin Dose 300 MLS/HR; Start 07/18/16 at 11:00 Lorazepam (Ativan) 0.5 mg Q6H PRN PO ANXEITY Last administered on 07/19/16 22: 28; Admin Dose 0.5 MG; Start 07/18/16 at 16:00 Clonidine (Catapres) 0.1 mg TID PO Last administered on 07/29/16 12:55; Admin Dose 0.1 MG; Start 07/19/16 at 09:00 Nifedipine (Procardia Xl) 30 mg QHS PO Last administered on 07/28/16 20:50; Admin Dose 30 MG; Start 07/20/16 at 21:00 Vancomycin HCl 125 mg 125 mg Q6 PO Last administered on 07/29/16 12:49; Admin Dose 125 MG; Start 07/21/16 at 19:00 Metronidazole (Flagyl 500 Mg (Pmx)) 100 ml @ 100 mls/hr Q8 IVPB Last administered on 07/29/16 14:38; Admin Dose 100 MLS/HR; Start 07/22/16 at 16:30 Lactobacillus Acidophilus/ Rhamnosus (Culturelle) 1 cap BID PO Last administered on 07/29/16 09:47; Admin Dose 1 CAP; Start 07/23/16 at 21:00 Ascorbic Acid (Vitamin C) 500 mg DAILY PO Last administered on 07/29/16 09:47 ; Admin Dose 500 MG; Start 07/26/16 at 09:00 Metoprolol Tartrate (Lopressor) 25 mg BID PO Last administered on 07/29/16 09: 48; Admin Dose 25 MG; Start 07/28/16 at 21:00 Hydralazine HCl (Apresoline) 10 mg Q4H PRN IV ELEVATED BLOOD PRESSURE Last administered on 07/29/16 14:50; Admin Dose 10 MG; Start 07/28/16 at 20:30 TACOS GREEN MD Jul 29, 2016 16:30
[2016-07-29 16:41] VITALS: BP 133/75; PULSE 65
--- NOTE | 2016-07-29 17:10 | PN ---
Date/Time of Note Date/Time of Note DATE: 07/29/16 TIME: 17:06 Assessment/Plan VTE Prophylaxis VTE Prophylaxis Intervention: SCD's Lines/Catheters IV [facility] [place] Urinary Cath still in place: Yes Reason Cath still needed: urinary retention Assessment/Plan Chief Complaint/Hosp Course Patient remains hemodynamically stable, no diarrhea per nurse, tolerates thickened liquid soft diet well. Assessment/Plan - Bilateral heel wounds, Dr. Simental is following in general surgery consultation , plan for bilateral heel debridement on . Cleared by cardiology for procedure Dr. Alexander consult is appreciated. - C. difficile colitis. Dr. Henderson is following an infection disease consultation. Continue oral vancomycin and intravenous metronidazole. - Colitis ulcers per colonoscopy, continue to follow-up gastroenterology recommendations. - Infected wounds on bilateral lower extremities. Continue antibiotics per ID. - Acute kidney injury on chronic kidney disease stage III. Dr. Srinivasan is following in nephrology consultation. - Acute metabolic encephalopathy, resolving. - Hypertension. Continue clonidine, Procardia and benazepril - Chronic obstructive pulmonary disease. Continue DuoNeb. - Benign prostatic hypertrophy. Continue Flomax. - Multiple decubitus ulcers present on admission. - Acute cerebrovascular accident. Continue aspirin. - Dyslipidemia. Continue Lipitor. - Dementia with behavioral disturbance. Continue Zyprexa. Further recommendations based on clinical course. Plan of care discussed with Dr. Rene. Problems: Exam/Review of Systems Vital Signs Vitals Vital Signs Date Time Temp Pulse Resp B/P Pulse Ox O2 Delivery O2 Flow Rate FiO2 07/29/16 16:41 65 133/75 07/29/16 14:42 18 94 Room Air 07/29/16 08:00 2.0 07/29/16 07:42 97.8 Intake and Output 07/28/16 07/28/16 07/29/16 15:00 23:00 07:00 Intake Total 1060 ml 1000 ml Output Total 700 ml 640 ml Balance 360 ml 360 ml Exam Constitutional: alert, frail Psych: confusion Head: normocephalic Neck: supple Respiratory: normal air movement Cardiovascular: nl pulses Gastrointestinal: non-tender, soft Genitourinary - Male: other ([place]ila catheter) Extremities: edema Skin: other (Multiple wounds) Results Result Diagram: 07/29/1662407/29/16624 Results 24 hrs Laboratory Tests Test 07/28/16 18:04 07/29/16 00:45 07/29/16 06:25 07/29/16 07:19 Creatine Kinase 46 40 47 Creatine Kinase Index 5.3 6.9 5.7 Creatinine Kinase MB (Mass) 2.44 H 2.75 H 2.68 H Troponin I 0.018 0.020 0.028 White Blood Count 15.5 #H Red Blood Count 3.78 #L Hemoglobin 11.1 #L Hematocrit 34.2 #L Mean Corpuscular Volume 90.5 Mean Corpuscular Hemoglobin 29.4 Mean Corpuscular Hemoglobin Concent 32.5 Red Cell Distribution Width 14.7 H Platelet Count 204 Mean Platelet Volume 8.4 Neutrophils % 82.2 H Lymphocytes % 9.9 L Monocytes % 3.4 Eosinophils % 3.9 Basophils % 0.2 Nucleated Red Blood Cells % 0.0 Neutrophils # 12.7 H Lymphocytes # 1.5 Monocytes # 0.5 Eosinophils # 0.6 H Basophils # 0.0 Nucleated Red Blood Cells # 0.0 Sodium Level 143 Potassium Level 4.1 Chloride Level 117 H Carbon Dioxide Level 16 L Anion Gap 14 Blood Urea Nitrogen 62 H Creatinine 3.29 H Glucose Level 87 Calcium Level 8.1 L Triglycerides Level 61 Cholesterol Level 76 L LDL Cholesterol, Calculated 34 HDL Cholesterol 30 L Cholesterol/HDL Ratio 2.5 Lab Scanned Report BLOOD TRANSFUSION Medications Medications Current Medications Acetaminophen (Tylenol Tab) 500 mg Q6H PRN PO PAIN AND OR ELEVATED TEMP; Start 07/09/16 at 20:30 Ondansetron HCl (Zofran Inj) 4 mg Q6H PRN IV NAUSEA AND/OR VOMITING; Start at 20:30 Aspirin (Aspirin) 81 mg DAILY PO Last administered on 07/29/16 09:47; Admin Dose 81 MG; Start 07/10/16 at 09:00 Benztropine Mesylate (Cogentin) 1 mg BID PO Last administered on 07/29/16 09: 46; Admin Dose 1 MG; Start 07/09/16 at 21:00 Finasteride (Proscar) 5 mg DAILY PO Last administered on 07/29/16 09:47; Admin Dose 5 MG; Start 07/10/16 at 09:00 Acetaminophen/ Hydrocodone Bitart ([place] (5/325)) 1 tab Q4 PRN PO SEVERE PAIN LEVEL 7-10 Last administered on 07/15/16 16:21; Admin Dose 1 TAB; Start at 20:30 Latanoprost (Xalatan) 1 drop QHS BOTH EYES Last administered on 07/27/16 21:40 ; Admin Dose 1 DROP; Start 07/09/16 at 21:00 Multivitamins Therapeutic (Theragran) 1 tab DAILY PO Last administered on 09:49; Admin Dose 1 TAB; Start 07/10/16 at 09:00 Olanzapine (Zyprexa) 5 mg QHS PO Last administered on 07/28/16 20:48; Admin Dose 5 MG; Start 07/09/16 at 21:00 Zinc Sulfate (Zinc Sulfate) 220 mg DAILY PO Last administered on 07/29/16 09: 46; Admin Dose 220 MG; Start 07/10/16 at 09:00 Acetaminophen (Tylenol Supp) 650 mg Q6H PRN [place] ELEVATED TEMPERATURE Last administered on 07/10/16 09:51; Admin Dose 650 MG; Start 07/10/16 at 09:30 Collagenase (Santyl) 1 applic DAILY TOP Last administered on 07/29/16 09:58; Admin Dose 1 APPLIC; Start 07/10/16 at 14:00 Bisacodyl (Dulcolax) 10 mg BID PO Last administered on 07/29/16 09:47; Admin Dose 10 MG; Start 07/13/16 at 15:00 Benazepril HCl (Lotensin) 20 mg DAILY PO Last administered on 07/29/16 09:48; Admin Dose 20 MG; Start 07/16/16 at 09:00 Zolpidem Tartrate (Ambien) 2.5 mg HS PRN PO INSOMNIA; Start 07/17/16 at 19:00 Epoetin Zana (Epogen (Esrd)) 6,000 units TuThSa@17 SC Last administered on 07/26 19:05; Admin Dose 6,000 UNITS; Start 07/17/16 at 20:00 Miscellaneous Information This patient ellis... PRN PRN XX WOUND CARE; Start at 07:00 Linezolid (Zyvox 600mg/D5W (Pmx)) 300 ml @ 300 mls/hr Q12 IVPB Last administered on 07/29/16 09:46; Admin Dose 300 MLS/HR; Start 07/18/16 at 11:00 Lorazepam (Ativan) 0.5 mg Q6H PRN PO ANXEITY Last administered on 07/19/16 22: 28; Admin Dose 0.5 MG; Start 07/18/16 at 16:00 Clonidine (Catapres) 0.1 mg TID PO Last administered on 07/29/16 12:55; Admin Dose 0.1 MG; Start 07/19/16 at 09:00 Nifedipine (Procardia Xl) 30 mg QHS PO Last administered on 07/28/16 20:50; Admin Dose 30 MG; Start 07/20/16 at 21:00 Vancomycin HCl 125 mg 125 mg Q6 PO Last administered on 07/29/16 12:49; Admin Dose 125 MG; Start 07/21/16 at 19:00 Metronidazole (Flagyl 500 Mg (Pmx)) 100 ml @ 100 mls/hr Q8 IVPB Last administered on 07/29/16 14:38; Admin Dose 100 MLS/HR; Start 07/22/16 at 16:30 Lactobacillus Acidophilus/ Rhamnosus (Culturelle) 1 cap BID PO Last administered on 07/29/16 09:47; Admin Dose 1 CAP; Start 07/23/16 at 21:00 Ascorbic Acid (Vitamin C) 500 mg DAILY PO Last administered on 07/29/16 09:47 ; Admin Dose 500 MG; Start 07/26/16 at 09:00 Metoprolol Tartrate (Lopressor) 25 mg BID PO Last administered on 07/29/16 09: 48; Admin Dose 25 MG; Start 07/28/16 at 21:00 Hydralazine HCl (Apresoline) 10 mg Q4H PRN IV ELEVATED BLOOD PRESSURE Last administered on 07/29/16 14:50; Admin Dose 10 MG; Start 07/28/16 at 20:30 Citric Acid/ Sodium Citrate (Bicitra) 15 ml BID PO ; Start 07/29/16 at 21:00 ALE MCCONNELL Jul 29, 2016 17:10
--- NOTE | 2016-07-29 17:38 | CONS ---
Date/Time of Note Date/Time of Note DATE: 07/29/16 TIME: 17:37 Assessment/Plan Assessment/Plan Chief Complaint/Hosp Course - leukocytosis, possible early sepsis - improving - infection of wounds of b/l heel due to MRSA, enterococcus sp and corynebacter jeikeium (grp JK); XR showed no bony abnormalities - unstageable decub of b/l heel - C diff colitis - s/p possible HCAP, Pt completed empiric cefepime (07/10/2016-07/19/2016); CXR on 07/20/2016 showed improvement. 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 Given by IV because Pt's often confused and PO intake can be affected. Will monitor CBC while Pt's on linezolid. - continue PO vancomycin (07/15/2016-) while Pt's on antibiotics - continue IV Flagyl (07/22/2016-) Problems: Consultation Date/Type/Reason Admit Date/Time July 09, 2016 at 12:24 Type of Consultation: id Referring Provider: RONNIE PATEL MD Exam/Review of Systems Vital Signs Vitals Vital Signs Date Time Temp Pulse Resp B/P Pulse Ox O2 Delivery O2 Flow Rate FiO2 07/29/16 16:41 65 133/75 07/29/16 14:42 18 94 Room Air 07/29/16 08:00 2.0 07/29/16 07:42 97.8 Intake and Output 07/28/16 07/28/16 07/29/16 15:00 23:00 07:00 Intake Total 1060 ml 1000 ml Output Total 700 ml 640 ml Balance 360 ml 360 ml Exam Constitutional: alert, oriented, well developed Psych: nl mood/affect, no complaints Respiratory: clear to auscultation, normal air movement Cardiovascular: nl pulses, regular rate and rhythm Results Result Diagram: 07/29/16 0625 07/29/16 0625 Results 24 hrs Laboratory Tests Test 07/28/16 18:04 07/29/16 00:45 07/29/16 06:25 07/29/16 07:19 Creatine Kinase 46 40 47 Creatine Kinase Index 5.3 6.9 5.7 Creatinine Kinase MB (Mass) 2.44 H 2.75 H 2.68 H Troponin I 0.018 0.020 0.028 White Blood Count 15.5 #H Red Blood Count 3.78 #L Hemoglobin 11.1 #L Hematocrit 34.2 #L Mean Corpuscular Volume 90.5 Mean Corpuscular Hemoglobin 29.4 Mean Corpuscular Hemoglobin Concent 32.5 Red Cell Distribution Width 14.7 H Platelet Count 204 Mean Platelet Volume 8.4 Neutrophils % 82.2 H Lymphocytes % 9.9 L Monocytes % 3.4 Eosinophils % 3.9 Basophils % 0.2 Nucleated Red Blood Cells % 0.0 Neutrophils # 12.7 H Lymphocytes # 1.5 Monocytes # 0.5 Eosinophils # 0.6 H Basophils # 0.0 Nucleated Red Blood Cells # 0.0 Sodium Level 143 Potassium Level 4.1 Chloride Level 117 H Carbon Dioxide Level 16 L Anion Gap 14 Blood Urea Nitrogen 62 H Creatinine 3.29 H Glucose Level 87 Calcium Level 8.1 L Triglycerides Level 61 Cholesterol Level 76 L LDL Cholesterol, Calculated 34 HDL Cholesterol 30 L Cholesterol/HDL Ratio 2.5 Lab Scanned Report BLOOD TRANSFUSION Medications Medications Current Medications Acetaminophen (Tylenol Tab) 500 mg Q6H PRN PO PAIN AND OR ELEVATED TEMP; Start 07/09/16 at 20:30 Ondansetron HCl (Zofran Inj) 4 mg Q6H PRN IV NAUSEA AND/OR VOMITING; Start at 20:30 Aspirin (Aspirin) 81 mg DAILY PO Last administered on 07/29/16 09:47; Admin Dose 81 MG; Start 07/10/16 at 09:00 Benztropine Mesylate (Cogentin) 1 mg BID PO Last administered on 07/29/16 09: 46; Admin Dose 1 MG; Start 07/09/16 at 21:00 Finasteride (Proscar) 5 mg DAILY PO Last administered on 07/29/16 09:47; Admin Dose 5 MG; Start 07/10/16 at 09:00 Acetaminophen/ Hydrocodone Bitart ([place] (5/325)) 1 tab Q4 PRN PO SEVERE PAIN LEVEL 7-10 Last administered on 07/15/16 16:21; Admin Dose 1 TAB; Start at 20:30 Latanoprost (Xalatan) 1 drop QHS BOTH EYES Last administered on 07/27/16 21:40 ; Admin Dose 1 DROP; Start 07/09/16 at 21:00 Multivitamins Therapeutic (Theragran) 1 tab DAILY PO Last administered on 09:49; Admin Dose 1 TAB; Start 07/10/16 at 09:00 Olanzapine (Zyprexa) 5 mg QHS PO Last administered on 07/28/16 20:48; Admin Dose 5 MG; Start 07/09/16 at 21:00 Zinc Sulfate (Zinc Sulfate) 220 mg DAILY PO Last administered on 07/29/16 09: 46; Admin Dose 220 MG; Start 07/10/16 at 09:00 Acetaminophen (Tylenol Supp) 650 mg Q6H PRN [place] ELEVATED TEMPERATURE Last administered on 07/10/16 09:51; Admin Dose 650 MG; Start 07/10/16 at 09:30 Collagenase (Santyl) 1 applic DAILY TOP Last administered on 07/29/16 09:58; Admin Dose 1 APPLIC; Start 07/10/16 at 14:00 Bisacodyl (Dulcolax) 10 mg BID PO Last administered on 07/29/16 09:47; Admin Dose 10 MG; Start 07/13/16 at 15:00 Benazepril HCl (Lotensin) 20 mg DAILY PO Last administered on 07/29/16 09:48; Admin Dose 20 MG; Start 07/16/16 at 09:00 Zolpidem Tartrate (Ambien) 2.5 mg HS PRN PO INSOMNIA; Start 07/17/16 at 19:00 Epoetin Zana (Epogen (Esrd)) 6,000 units TuThSa@17 SC Last administered on 07/26 19:05; Admin Dose 6,000 UNITS; Start 07/17/16 at 20:00 Miscellaneous Information This patient ellis... PRN PRN XX WOUND CARE; Start at 07:00 Linezolid (Zyvox 600mg/D5W (Pmx)) 300 ml @ 300 mls/hr Q12 IVPB Last administered on 07/29/16 09:46; Admin Dose 300 MLS/HR; Start 07/18/16 at 11:00 Lorazepam (Ativan) 0.5 mg Q6H PRN PO ANXEITY Last administered on 07/19/16 22: 28; Admin Dose 0.5 MG; Start 07/18/16 at 16:00 Clonidine (Catapres) 0.1 mg TID PO Last administered on 07/29/16 12:55; Admin Dose 0.1 MG; Start 07/19/16 at 09:00 Nifedipine (Procardia Xl) 30 mg QHS PO Last administered on 07/28/16 20:50; Admin Dose 30 MG; Start 07/20/16 at 21:00 Vancomycin HCl 125 mg 125 mg Q6 PO Last administered on 07/29/16 12:49; Admin Dose 125 MG; Start 07/21/16 at 19:00 Metronidazole (Flagyl 500 Mg (Pmx)) 100 ml @ 100 mls/hr Q8 IVPB Last administered on 07/29/16 14:38; Admin Dose 100 MLS/HR; Start 07/22/16 at 16:30 Lactobacillus Acidophilus/ Rhamnosus (Culturelle) 1 cap BID PO Last administered on 07/29/16 09:47; Admin Dose 1 CAP; Start 07/23/16 at 21:00 Ascorbic Acid (Vitamin C) 500 mg DAILY PO Last administered on 07/29/16 09:47 ; Admin Dose 500 MG; Start 07/26/16 at 09:00 Metoprolol Tartrate (Lopressor) 25 mg BID PO Last administered on 07/29/16 09: 48; Admin Dose 25 MG; Start 07/28/16 at 21:00 Hydralazine HCl (Apresoline) 10 mg Q4H PRN IV ELEVATED BLOOD PRESSURE Last administered on 07/29/16 14:50; Admin Dose 10 MG; Start 07/28/16 at 20:30 Citric Acid/ Sodium Citrate (Bicitra) 15 ml BID PO ; Start 07/29/16 at 21:00 ALVA GEE MD Jul 29, 2016 17:38
[2016-07-29] MEDS: EPOETIN 3000 UNITS/1 ML INJ (ESRD) SC SCH (18:51)
[2016-07-29 19:32] VITALS: BP 163/74; RESP 20
[2016-07-29] MEDS: OLANZAPINE 5 MG TAB PO SCH (21:38)
[2016-07-29] MEDS: NIFEdipine (XL) 30 MG TAB PO SCH (21:38)
[2016-07-29] MEDS: CITRIC ACID/SODIUM CITRATE 15 ML CUP PO SCH (21:39)
[2016-07-29] MEDS: LATANOPROST 0.005% 2.5 ML OPH BOTH EYES SCH (21:53)
[2016-07-30 05:53] LABS: ADD SCAN DIFF NO
[2016-07-30 05:57] LABS: BASOPHILS % 0.2 % (0.0-2.0); EOSINOPHILS # 0.6 10^3/ul (0.0-0.5); EOSINOPHILS % 4.3 % (0.0-7.0); HEMATOCRIT 28.4 % (42.0-52.0); HEMOGLOBIN 9.6 g/dl (14.0-18.0); LYMPHOCYTES # 1.6 10^3/ul (0.8-2.9); LYMPHOCYTES % 12.3 % (15.0-51.0); MEAN CORPUSCULAR HEMOGLOBIN 30.1 pg (29.0-33.0); MEAN CORPUSCULAR HGB CONC 33.8 g/dl (32.0-37.0); MEAN PLATELET VOLUME 8.6 fl (7.4-10.4); MONOCYTE # 0.4 10^3/ul (0.3-0.9); MONOCYTES % 3.2 % (0.0-11.0); NEUTROPHIL # 10.6 10^3/ul (1.6-7.5); NEUTROPHILS % 79.5 % (39.0-77.0); PLATELET COUNT 167 10^3/UL (140-415); RED BLOOD COUNT 3.19 10^6/ul (4.70-6.10); WHITE BLOOD COUNT 13.3 10^3/ul (4.8-10.8)
[2016-07-30] MEDS: metroNIDAZOLE 500 MG/NS (PMX) 100 ML IVPB SCH ×3 (06:04→22:34)
[2016-07-30] MEDS: VANCOMYCIN HCL 250 MG/5ML POSYG PO SCH ×4 (06:04→23:47)
[2016-07-30 06:33] LABS: CALCIUM 7.5 mg/dl (8.4-10.2); CREATININE 3.39 mg/dl (0.61-1.24); POTASSIUM 3.9 mmol/L (3.5-5.1)
--- NOTE | 2016-07-30 06:55 | PN ---
DATE: 07/29/2016 SUBJECTIVE: No new complaints. The patient is asleep, arousable. VITAL SIGNS: Temperature 97.8, heart rate 65, blood pressure 171/80, respirations 18, saturation 94% on 2 liters nasal cannula. LABORATORY DATA: Today WBC is 16,500, hemoglobin has increased to 11.1 after blood transfusion. Platelet count 204. Chemistry: Sodium, potassium normal. BUN 62, creatinine 3.29. CK-MB creatine kinase 47, normal. Creatinine kinase index 57, normal. CK-MB fraction is 2.68 and 2.75. Yesterday it was 2.44. Troponin is normal. OBJECTIVE: ABDOMEN: Soft. LOWER EXTREMITIES: Bilaterally heel necrosis and unstageable decubitus ulcers. ASSESSMENT AND PLAN: I had requested consultation by Cardiology, Dr. Alexander. He has seen the patient, and he has cleared the patient for operation from cardiac point of view. I talked to Dr. Rene. He has cleared the patient as well. I am going to book the patient for either Thursday or or Thursday of this week for bilateral heel debridement. Dictated By: LISSETH THORPE MD PS/NTS Conf#: [id number] DID#: [id number] MTDD
[2016-07-30 07:34] VITALS: BP 172/75; RESP 20
[2016-07-30] MEDS: ZINC SULFATE 220 MG CAP PO SCH (07:54)
[2016-07-30] MEDS: CALCIUM CARBONATE 750 MG CHEW TAB PO SCH ×3 (07:54→17:13)
[2016-07-30] MEDS: LINEZOLID 600 MG/D5W (PMX) 300 ML IVPB SCH ×2 (07:54→21:21)
[2016-07-30] MEDS: BENZTROPINE 1 MG TAB PO SCH ×2 (07:54→21:22)
[2016-07-30] MEDS: BENAZEPRIL 20 MG TAB PO SCH (07:54)
[2016-07-30] MEDS: ASPIRIN 81 MG TAB PO SCH (07:54)
[2016-07-30] MEDS: MULTIVITAMINS THERAPEUTIC TAB PO SCH (07:54)
[2016-07-30] MEDS: FINASTERIDE 5 MG TAB PO SCH (07:54)
[2016-07-30] MEDS: BISACODYL (EC) 5 MG TAB PO SCH ×2 (07:55→21:21)
[2016-07-30] MEDS: PANTOPRAZOLE (EC) 40 MG TAB PO SCH (07:55)
[2016-07-30] MEDS: METOPROLOL 25 MG TAB PO SCH ×2 (07:55→21:24)
[2016-07-30] MEDS: ASCORBIC ACID 500 MG TAB PO SCH (07:55)
[2016-07-30] MEDS: COLLAGENASE 30 GM TUBE TOP SCH ×2 (07:56→22:53)
[2016-07-30] MEDS: LACTOBACILLUS RHAMNOSUS CAP PO SCH ×2 (07:56→21:22)
[2016-07-30] MEDS: CITRIC ACID/SODIUM CITRATE 15 ML CUP PO SCH ×2 (07:56→21:21)
--- NOTE | 2016-07-30 10:31 | CONS ---
Date/Time of Note Date/Time of Note DATE: 07/30/16 TIME: 10:12 Consult Date/Type/Reason Admit Date/Time July 09, 2016 at 12:24 Initial Consult Date 07/11/16 Type of Consultation: INFECTIOUS DISEASE Ordering Provider: RONNIE PATEL MD Subjective "I guess I'm okay" Objective Vital Signs Date Time Temp Pulse Resp B/P Pulse Ox O2 Delivery O2 Flow Rate FiO2 07/30/16 08:00 Nasal Cannula 07/30/16 07:34 98.8 64 20 172/75 91 07/30/16 04:35 2.0 Intake and Output 07/29/16 07/29/16 07/30/16 15:00 23:00 07:00 Intake Total 300 ml 1120 ml 220 ml Output Total 700 ml 860 ml Balance 300 ml 420 ml -640 ml Exam Constitutional: well developed male lying in bed in no acute distress Head: atraumatic, normocephalic Eyes: normal sclera Neck: supple Respiratory: inspiratory wheezing Cardiovascular: regular rate and rhythm Gastrointestinal: soft, large, non-tender, non-distended Genitourinary: Avila catheter present Extremities: +4 pitting edema BLE's Neurological: disoriented to time and situation Skin: warm, dry, bilateral heel and coccyx decubitus ulcers (please see nurses notes for detailed documentation) Results/Medications Result Diagram: 07/30/16 0511 07/30/16 0511 Results 24 hrs Laboratory Tests Test 07/30/16 05:11 White Blood Count 13.3 H Red Blood Count 3.19 L Hemoglobin 9.6 L Hematocrit 28.4 L Mean Corpuscular Volume 89.0 Mean Corpuscular Hemoglobin 30.1 Mean Corpuscular Hemoglobin Concent 33.8 Red Cell Distribution Width 15.0 H Platelet Count 167 Mean Platelet Volume 8.6 Neutrophils % 79.5 H Lymphocytes % 12.3 L Monocytes % 3.2 Eosinophils % 4.3 Basophils % 0.2 Nucleated Red Blood Cells % 0.0 Neutrophils # 10.6 H Lymphocytes # 1.6 Monocytes # 0.4 Eosinophils # 0.6 H Basophils # 0.0 Nucleated Red Blood Cells # 0.0 Sodium Level 143 Potassium Level 3.9 Chloride Level 118 H Carbon Dioxide Level 17 L Anion Gap 12 Blood Urea Nitrogen 60 H Creatinine 3.39 H Glucose Level 86 Calcium Level 7.5 L Medications Current Medications Acetaminophen (Tylenol Tab) 500 mg Q6H PRN PO PAIN AND OR ELEVATED TEMP; Start 07/09/16 at 20:30 Ondansetron HCl (Zofran Inj) 4 mg Q6H PRN IV NAUSEA AND/OR VOMITING; Start at 20:30 Aspirin (Aspirin) 81 mg DAILY PO Last administered on 07/30/16 07:54; Admin Dose 81 MG; Start 07/10/16 at 09:00 Benztropine Mesylate (Cogentin) 1 mg BID PO Last administered on 07/30/16 07: 54; Admin Dose 1 MG; Start 07/09/16 at 21:00 Finasteride (Proscar) 5 mg DAILY PO Last administered on 07/30/16 07:54; Admin Dose 5 MG; Start 07/10/16 at 09:00 Acetaminophen/ Hydrocodone Bitart ([place] (5/325)) 1 tab Q4 PRN PO SEVERE PAIN LEVEL 7-10 Last administered on 07/15/16 16:21; Admin Dose 1 TAB; Start at 20:30 Latanoprost (Xalatan) 1 drop QHS BOTH EYES Last administered on 07/29/16 21:53 ; Admin Dose 1 DROP; Start 07/09/16 at 21:00 Multivitamins Therapeutic (Theragran) 1 tab DAILY PO Last administered on 07:54; Admin Dose 1 TAB; Start 07/10/16 at 09:00 Olanzapine (Zyprexa) 5 mg QHS PO Last administered on 07/29/16 21:38; Admin Dose 5 MG; Start 07/09/16 at 21:00 Zinc Sulfate (Zinc Sulfate) 220 mg DAILY PO Last administered on 07/30/16 07: 54; Admin Dose 220 MG; Start 07/10/16 at 09:00 Acetaminophen (Tylenol Supp) 650 mg Q6H PRN [place] ELEVATED TEMPERATURE Last administered on 07/10/16 09:51; Admin Dose 650 MG; Start 07/10/16 at 09:30 Collagenase (Santyl) 1 applic DAILY TOP Last administered on 07/30/16 07:56; Admin Dose 1 APPLIC; Start 07/10/16 at 14:00 Bisacodyl (Dulcolax) 10 mg BID PO Last administered on 07/30/16 07:55; Admin Dose 10 MG; Start 07/13/16 at 15:00 Benazepril HCl (Lotensin) 20 mg DAILY PO Last administered on 07/30/16 07:54; Admin Dose 20 MG; Start 07/16/16 at 09:00 Zolpidem Tartrate (Ambien) 2.5 mg HS PRN PO INSOMNIA; Start 07/17/16 at 19:00 Epoetin Zana (Epogen (Esrd)) 6,000 units TuThSa@17 SC Last administered on 07/29 18:51; Admin Dose 6,000 UNITS; Start 07/17/16 at 20:00 Miscellaneous Information This patient ellis... PRN PRN XX WOUND CARE; Start at 07:00 Linezolid (Zyvox 600mg/D5W (Pmx)) 300 ml @ 300 mls/hr Q12 IVPB Last administered on 07/30/16 07:54; Admin Dose 300 MLS/HR; Start 07/18/16 at 11:00 Lorazepam (Ativan) 0.5 mg Q6H PRN PO ANXEITY Last administered on 07/19/16 22: 28; Admin Dose 0.5 MG; Start 07/18/16 at 16:00 Clonidine (Catapres) 0.1 mg TID PO Last administered on 07/30/16 07:55; Admin Dose 0.1 MG; Start 07/19/16 at 09:00 Nifedipine (Procardia Xl) 30 mg QHS PO Last administered on 07/29/16 21:38; Admin Dose 30 MG; Start 07/20/16 at 21:00 Vancomycin HCl 125 mg 125 mg Q6 PO Last administered on 07/30/16 06:04; Admin Dose 125 MG; Start 07/21/16 at 19:00 Metronidazole (Flagyl 500 Mg (Pmx)) 100 ml @ 100 mls/hr Q8 IVPB Last administered on 07/30/16 06:04; Admin Dose 100 MLS/HR; Start 07/22/16 at 16:30 Lactobacillus Acidophilus/ Rhamnosus (Culturelle) 1 cap BID PO Last administered on 07/30/16 07:56; Admin Dose 1 CAP; Start 07/23/16 at 21:00 Ascorbic Acid (Vitamin C) 500 mg DAILY PO Last administered on 07/30/16 07:55 ; Admin Dose 500 MG; Start 07/26/16 at 09:00 Metoprolol Tartrate (Lopressor) 25 mg BID PO Last administered on 07/30/16 07: 55; Admin Dose 25 MG; Start 07/28/16 at 21:00 Hydralazine HCl (Apresoline) 10 mg Q4H PRN IV ELEVATED BLOOD PRESSURE Last administered on 07/29/16 14:50; Admin Dose 10 MG; Start 07/28/16 at 20:30 Citric Acid/ Sodium Citrate (Bicitra) 15 ml BID PO Last administered on 07:56; Admin Dose 15 ML; Start 07/29/16 at 21:00 Assessment/Plan Chief Complaint/Hosp Course - leukocytosis, possible early sepsis - improving - infection of wounds of b/l heel due to MRSA, enterococcus sp and corynebacter jeikeium (grp JK); XR showed no bony abnormalities - unstageable decub of b/l heel - C diff colitis - s/p possible HCAP, Pt completed empiric cefepime (07/10/2016-07/19/2016); CXR on 07/20/2016 showed improvement. 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 Given by IV because Pt's often confused and PO intake can be affected. Will monitor CBC while Pt's on linezolid. - continue PO vancomycin (07/15/2016-) while Pt's on antibiotics - continue IV Flagyl (07/22/2016 Care and management discussed with DANIEL Richard and DR. Henderson Problems: Additional Assessment/Plan Planning bilateral heel wound debridement either on Thursday, or Thursday per DR. Crow note dated 07/29/16 MICAH MURRAY Jul 30, 2016 10:22
--- NOTE | 2016-07-30 13:11 | CONS ---
Date/Time of Note Date/Time of Note DATE: 07/30/16 TIME: 13:11 Assessment/Plan Assessment/Plan Additional Assessment/Plan 1. Acute kidney injury, Pre- Renal R/o ATN, Avila no signs of obstructive Uropathy, Hx of BPH.- Non Oliguric 2. Hypertension. Normotensive at this time. 3. Chronic obstructive pulmonary disease. 4. Benign prostatic hypertrophy. 5. Loculated pleural effusion. 6. Multiple decubiti 7. Cerebrovascular accident. 8. Dyslipidemia. 9. Dementia with behavioral disturbance. 10. Metabolic Acidosis-stable 11. Hyponatremia Renal function is stable Pt is non oliguric, Cont current Rx and plan Repeat labs in am No acute indication for HD at this time Consultation Date/Type/Reason Admit Date/Time July 09, 2016 at 12:24 Type of Consultation: renal Referring Provider: RONNIE PATEL MD 24 HR Interval Summary Free Text/Dictation No new complaints Constitutional: No requiring O2 Exam/Review of Systems Vital Signs Vitals Vital Signs Date Time Temp Pulse Resp B/P Pulse Ox O2 Delivery O2 Flow Rate FiO2 07/30/16 08:00 Nasal Cannula 07/30/16 07:34 98.8 64 20 172/75 91 07/30/16 04:35 2.0 Intake and Output 07/29/16 07/29/16 07/30/16 15:00 23:00 07:00 Intake Total 300 ml 1120 ml 220 ml Output Total 700 ml 860 ml Balance 300 ml 420 ml -640 ml Exam Constitutional: distress Head: atraumatic Eyes: EOMI Neck: jvd Respiratory: diminished breath sounds, labored breathing Cardiovascular: edema, regular rate and rhythm Extremities: pitting pedal edema Neurological: lethargic Skin: diaphoresis Results Result Diagram: 07/30/16 0511 07/30/16 0511 Results 24 hrs Laboratory Tests Test 07/30/16 05:11 White Blood Count 13.3 H Red Blood Count 3.19 L Hemoglobin 9.6 L Hematocrit 28.4 L Mean Corpuscular Volume 89.0 Mean Corpuscular Hemoglobin 30.1 Mean Corpuscular Hemoglobin Concent 33.8 Red Cell Distribution Width 15.0 H Platelet Count 167 Mean Platelet Volume 8.6 Neutrophils % 79.5 H Lymphocytes % 12.3 L Monocytes % 3.2 Eosinophils % 4.3 Basophils % 0.2 Nucleated Red Blood Cells % 0.0 Neutrophils # 10.6 H Lymphocytes # 1.6 Monocytes # 0.4 Eosinophils # 0.6 H Basophils # 0.0 Nucleated Red Blood Cells # 0.0 Sodium Level 143 Potassium Level 3.9 Chloride Level 118 H Carbon Dioxide Level 17 L Anion Gap 12 Blood Urea Nitrogen 60 H Creatinine 3.39 H Glucose Level 86 Calcium Level 7.5 L Medications Medications Current Medications Acetaminophen (Tylenol Tab) 500 mg Q6H PRN PO PAIN AND OR ELEVATED TEMP; Start 07/09/16 at 20:30 Ondansetron HCl (Zofran Inj) 4 mg Q6H PRN IV NAUSEA AND/OR VOMITING; Start at 20:30 Aspirin (Aspirin) 81 mg DAILY PO Last administered on 07/30/16 07:54; Admin Dose 81 MG; Start 07/10/16 at 09:00 Benztropine Mesylate (Cogentin) 1 mg BID PO Last administered on 07/30/16 07: 54; Admin Dose 1 MG; Start 07/09/16 at 21:00 Finasteride (Proscar) 5 mg DAILY PO Last administered on 07/30/16 07:54; Admin Dose 5 MG; Start 07/10/16 at 09:00 Acetaminophen/ Hydrocodone Bitart ([place] (5/325)) 1 tab Q4 PRN PO SEVERE PAIN LEVEL 7-10 Last administered on 07/15/16 16:21; Admin Dose 1 TAB; Start at 20:30 Latanoprost (Xalatan) 1 drop QHS BOTH EYES Last administered on 07/29/16 21:53 ; Admin Dose 1 DROP; Start 07/09/16 at 21:00 Multivitamins Therapeutic (Theragran) 1 tab DAILY PO Last administered on 07:54; Admin Dose 1 TAB; Start 07/10/16 at 09:00 Olanzapine (Zyprexa) 5 mg QHS PO Last administered on 07/29/16 21:38; Admin Dose 5 MG; Start 07/09/16 at 21:00 Zinc Sulfate (Zinc Sulfate) 220 mg DAILY PO Last administered on 07/30/16 07: 54; Admin Dose 220 MG; Start 07/10/16 at 09:00 Acetaminophen (Tylenol Supp) 650 mg Q6H PRN [place] ELEVATED TEMPERATURE Last administered on 07/10/16 09:51; Admin Dose 650 MG; Start 07/10/16 at 09:30 Collagenase (Santyl) 1 applic DAILY TOP Last administered on 07/30/16 07:56; Admin Dose 1 APPLIC; Start 07/10/16 at 14:00 Bisacodyl (Dulcolax) 10 mg BID PO Last administered on 07/30/16 07:55; Admin Dose 10 MG; Start 07/13/16 at 15:00 Benazepril HCl (Lotensin) 20 mg DAILY PO Last administered on 07/30/16 07:54; Admin Dose 20 MG; Start 07/16/16 at 09:00 Zolpidem Tartrate (Ambien) 2.5 mg HS PRN PO INSOMNIA; Start 07/17/16 at 19:00 Epoetin Zana (Epogen (Esrd)) 6,000 units TuThSa@17 SC Last administered on 07/29 18:51; Admin Dose 6,000 UNITS; Start 07/17/16 at 20:00 Miscellaneous Information This patient ellis... PRN PRN XX WOUND CARE; Start at 07:00 Linezolid (Zyvox 600mg/D5W (Pmx)) 300 ml @ 300 mls/hr Q12 IVPB Last administered on 07/30/16 07:54; Admin Dose 300 MLS/HR; Start 07/18/16 at 11:00 Lorazepam (Ativan) 0.5 mg Q6H PRN PO ANXEITY Last administered on 07/19/16 22: 28; Admin Dose 0.5 MG; Start 07/18/16 at 16:00 Clonidine (Catapres) 0.1 mg TID PO Last administered on 07/30/16 13:03; Admin Dose 0.1 MG; Start 07/19/16 at 09:00 Nifedipine (Procardia Xl) 30 mg QHS PO Last administered on 07/29/16 21:38; Admin Dose 30 MG; Start 07/20/16 at 21:00 Vancomycin HCl 125 mg 125 mg Q6 PO Last administered on 07/30/16 13:03; Admin Dose 125 MG; Start 07/21/16 at 19:00 Metronidazole (Flagyl 500 Mg (Pmx)) 100 ml @ 100 mls/hr Q8 IVPB Last administered on 07/30/16 13:04; Admin Dose 100 MLS/HR; Start 07/22/16 at 16:30 Lactobacillus Acidophilus/ Rhamnosus (Culturelle) 1 cap BID PO Last administered on 07/30/16 07:56; Admin Dose 1 CAP; Start 07/23/16 at 21:00 Ascorbic Acid (Vitamin C) 500 mg DAILY PO Last administered on 07/30/16 07:55 ; Admin Dose 500 MG; Start 07/26/16 at 09:00 Metoprolol Tartrate (Lopressor) 25 mg BID PO Last administered on 07/30/16 07: 55; Admin Dose 25 MG; Start 07/28/16 at 21:00 Hydralazine HCl (Apresoline) 10 mg Q4H PRN IV ELEVATED BLOOD PRESSURE Last administered on 07/29/16 14:50; Admin Dose 10 MG; Start 07/28/16 at 20:30 Citric Acid/ Sodium Citrate (Bicitra) 15 ml BID PO Last administered on 07:56; Admin Dose 15 ML; Start 07/29/16 at 21:00 TACOS GREEN MD Jul 30, 2016 13:11
--- NOTE | 2016-07-30 13:24 | CONS ---
Date/Time of Note Date/Time of Note DATE: 07/30/16 TIME: 13:17 Assessment/Plan Assessment/Plan Chief Complaint/Hosp Course IMPRESSION: 1. Preoperative evaluation prior to debridement of heel decubitus ulcers.- negative trop x 3/NL EF by echo this admit with no sig contraindicated valve lesions. Ok to proceed to OR on BB continue pre-post op without furthet non- invasive eval at moderate risk 2. Hypertension-uncontrolled 3. Abnormal electrocardiogram with anteroseptal Q's and normal ejection fraction by echo this admit. 4. Clostridium difficile Colitis. 5. Renal failure. 6. Encephalopathy. 7. Chronic obstructive pulmonary disease. 8. History of cerebrovascular accident. 9. Dyslipidemia. 10. Dementia. 11. Anemia. 12. Leukocytosis. 12. Coagulopathy. Recc: -Continue asa -Continue abx's and f/u cx data -local wound care -Continue current BB -Contiue procardia XL/clonidine with uptitration as necessary to improve BP control -Follow volume status closely Problems: Consultation Date/Type/Reason Admit Date/Time July 09, 2016 at 12:24 Initial Consult Date 07/26/16 Type of Consultation: cardiology Reason for Consultation Pre-op Referring Provider: RONNIE PATEL MD Exam/Review of Systems Vital Signs Vitals Vital Signs Date Time Temp Pulse Resp B/P Pulse Ox O2 Delivery O2 Flow Rate FiO2 07/30/16 08:00 Nasal Cannula 07/30/16 07:34 98.8 64 20 172/75 91 07/30/16 04:35 2.0 Intake and Output 07/29/16 07/29/16 07/30/16 15:00 23:00 07:00 Intake Total 300 ml 1120 ml 220 ml Output Total 700 ml 860 ml Balance 300 ml 420 ml -640 ml Exam Review of Systems: CONSTITUTIONAL: No fevers, chills. PULMONARY: No sob CARDIOVASCULAR: No chest pain/palpitations GASTROINTESTINAL: No nausea/vomiting. GENITOURINARY: No hematuria/dysuria. MUSCULOSKELETAL: No myagias/arthalgias. PSYCHIATRIC: The patient denies depression. NEUROLOGIC: lethargic Constitutional: alert Psych: no complaints Head: normocephalic ENMT: mucosa pink and moist Neck: jvd (9 cm ), supple Respiratory: diminished breath sounds (at bases/B) Cardiovascular: regular rate and rhythm Gastrointestinal: non-tender, soft Musculoskeletal: muscle weakness (generalized) Extremities: edema (none), other (feet/heel covered by dressing) Results Result Diagram: 07/30/1611 07/30/16 0511 Results 24 hrs Laboratory Tests Test 07/30/16 05:11 White Blood Count 13.3 H Red Blood Count 3.19 L Hemoglobin 9.6 L Hematocrit 28.4 L Mean Corpuscular Volume 89.0 Mean Corpuscular Hemoglobin 30.1 Mean Corpuscular Hemoglobin Concent 33.8 Red Cell Distribution Width 15.0 H Platelet Count 167 Mean Platelet Volume 8.6 Neutrophils % 79.5 H Lymphocytes % 12.3 L Monocytes % 3.2 Eosinophils % 4.3 Basophils % 0.2 Nucleated Red Blood Cells % 0.0 Neutrophils # 10.6 H Lymphocytes # 1.6 Monocytes # 0.4 Eosinophils # 0.6 H Basophils # 0.0 Nucleated Red Blood Cells # 0.0 Sodium Level 143 Potassium Level 3.9 Chloride Level 118 H Carbon Dioxide Level 17 L Anion Gap 12 Blood Urea Nitrogen 60 H Creatinine 3.39 H Glucose Level 86 Calcium Level 7.5 L Medications Medications Current Medications Acetaminophen (Tylenol Tab) 500 mg Q6H PRN PO PAIN AND OR ELEVATED TEMP; Start 07/09/16 at 20:30 Ondansetron HCl (Zofran Inj) 4 mg Q6H PRN IV NAUSEA AND/OR VOMITING; Start at 20:30 Aspirin (Aspirin) 81 mg DAILY PO Last administered on 07/30/16 07:54; Admin Dose 81 MG; Start 07/10/16 at 09:00 Benztropine Mesylate (Cogentin) 1 mg BID PO Last administered on 07/30/16 07: 54; Admin Dose 1 MG; Start 07/09/16 at 21:00 Finasteride (Proscar) 5 mg DAILY PO Last administered on 07/30/16 07:54; Admin Dose 5 MG; Start 07/10/16 at 09:00 Acetaminophen/ Hydrocodone Bitart ([place] (5/325)) 1 tab Q4 PRN PO SEVERE PAIN LEVEL 7-10 Last administered on 07/15/16 16:21; Admin Dose 1 TAB; Start at 20:30 Latanoprost (Xalatan) 1 drop QHS BOTH EYES Last administered on 07/29/16 21:53 ; Admin Dose 1 DROP; Start 07/09/16 at 21:00 Multivitamins Therapeutic (Theragran) 1 tab DAILY PO Last administered on 07:54; Admin Dose 1 TAB; Start 07/10/16 at 09:00 Olanzapine (Zyprexa) 5 mg QHS PO Last administered on 07/29/16 21:38; Admin Dose 5 MG; Start 07/09/16 at 21:00 Zinc Sulfate (Zinc Sulfate) 220 mg DAILY PO Last administered on 07/30/16 07: 54; Admin Dose 220 MG; Start 07/10/16 at 09:00 Acetaminophen (Tylenol Supp) 650 mg Q6H PRN [place] ELEVATED TEMPERATURE Last administered on 07/10/16 09:51; Admin Dose 650 MG; Start 07/10/16 at 09:30 Collagenase (Santyl) 1 applic DAILY TOP Last administered on 07/30/16 07:56; Admin Dose 1 APPLIC; Start 07/10/16 at 14:00 Bisacodyl (Dulcolax) 10 mg BID PO Last administered on 07/30/16 07:55; Admin Dose 10 MG; Start 07/13/16 at 15:00 Benazepril HCl (Lotensin) 20 mg DAILY PO Last administered on 07/30/16 07:54; Admin Dose 20 MG; Start 07/16/16 at 09:00 Zolpidem Tartrate (Ambien) 2.5 mg HS PRN PO INSOMNIA; Start 07/17/16 at 19:00 Epoetin Zana (Epogen (Esrd)) 6,000 units TuThSa@17 SC Last administered on 07/29 18:51; Admin Dose 6,000 UNITS; Start 07/17/16 at 20:00 Miscellaneous Information This patient ellis... PRN PRN XX WOUND CARE; Start at 07:00 Linezolid (Zyvox 600mg/D5W (Pmx)) 300 ml @ 300 mls/hr Q12 IVPB Last administered on 07/30/16 07:54; Admin Dose 300 MLS/HR; Start 07/18/16 at 11:00 Lorazepam (Ativan) 0.5 mg Q6H PRN PO ANXEITY Last administered on 07/19/16 22: 28; Admin Dose 0.5 MG; Start 07/18/16 at 16:00 Clonidine (Catapres) 0.1 mg TID PO Last administered on 07/30/16 13:03; Admin Dose 0.1 MG; Start 07/19/16 at 09:00 Nifedipine (Procardia Xl) 30 mg QHS PO Last administered on 07/29/16 21:38; Admin Dose 30 MG; Start 07/20/16 at 21:00 Vancomycin HCl 125 mg 125 mg Q6 PO Last administered on 07/30/16 13:03; Admin Dose 125 MG; Start 07/21/16 at 19:00 Metronidazole (Flagyl 500 Mg (Pmx)) 100 ml @ 100 mls/hr Q8 IVPB Last administered on 07/30/16 13:04; Admin Dose 100 MLS/HR; Start 07/22/16 at 16:30 Lactobacillus Acidophilus/ Rhamnosus (Culturelle) 1 cap BID PO Last administered on 07/30/16 07:56; Admin Dose 1 CAP; Start 07/23/16 at 21:00 Ascorbic Acid (Vitamin C) 500 mg DAILY PO Last administered on 07/30/16 07:55 ; Admin Dose 500 MG; Start 07/26/16 at 09:00 Metoprolol Tartrate (Lopressor) 25 mg BID PO Last administered on 07/30/16 07: 55; Admin Dose 25 MG; Start 07/28/16 at 21:00 Hydralazine HCl (Apresoline) 10 mg Q4H PRN IV ELEVATED BLOOD PRESSURE Last administered on 07/29/16 14:50; Admin Dose 10 MG; Start 07/28/16 at 20:30 Citric Acid/ Sodium Citrate (Bicitra) 15 ml BID PO Last administered on 07:56; Admin Dose 15 ML; Start 07/29/16 at 21:00 PACHECO COHEN Jul 30, 2016 13:24
--- NOTE | 2016-07-30 15:45 | PN ---
Date/Time of Note Date/Time of Note DATE: 07/30/16 TIME: 15:42 Assessment/Plan VTE Prophylaxis VTE Prophylaxis Intervention: SCD's Lines/Catheters IV [facility] [facility] Urinary Cath still in place: Yes Reason Cath still needed: urinary retention Assessment/Plan Chief Complaint/Hosp Course Patient remains hemodynamically stable, pending bilateral heel wound debridement on Thursday. Patient with mild coagulopathy I will give vitamin K and in view of pending procedure. CBC and coagulation profile tomorrow. Assessment/Plan - Bilateral heel wounds, Dr. Simental is following in general surgery consultation , plan for bilateral heel debridement on Thursday. Cleared by cardiology for procedure. - C. difficile colitis. Dr. Henderson is following an infection disease consultation. Continue oral vancomycin and intravenous metronidazole. - Colitis ulcers per colonoscopy, continue to follow-up gastroenterology recommendations. - Infected wounds on bilateral lower extremities. Continue antibiotics per ID. - Acute kidney injury on chronic kidney disease stage III. Dr. Srinivasan is following in nephrology consultation. - Acute metabolic encephalopathy, resolving. - Hypertension. Continue clonidine, Procardia and benazepril - Chronic obstructive pulmonary disease. Continue DuoNeb. - Benign prostatic hypertrophy. Continue Flomax. - Multiple decubitus ulcers present on admission. Continue local wound care, offloading. - Acute cerebrovascular accident. Continue aspirin. - Dyslipidemia. Continue Lipitor. - Dementia with behavioral disturbance. Continue Zyprexa. Further recommendations based on clinical course. Plan of care discussed with Dr. Rene. Problems: Exam/Review of Systems Vital Signs Vitals Vital Signs Date Time Temp Pulse Resp B/P Pulse Ox O2 Delivery O2 Flow Rate FiO2 07/30/16 08:00 Nasal Cannula 07/30/16 07:34 98.8 64 20 172/75 91 07/30/16 04:35 2.0 Intake and Output 07/29/16 07/29/16 07/30/16 15:00 23:00 07:00 Intake Total 300 ml 1120 ml 220 ml Output Total 700 ml 860 ml Balance 300 ml 420 ml -640 ml Exam Constitutional: alert, frail Psych: confusion Head: normocephalic Neck: supple Respiratory: normal air movement Cardiovascular: nl pulses Gastrointestinal: non-tender, soft Genitourinary - Male: other (Avila catheter) Extremities: edema Skin: other (Multiple wounds) Results Result Diagram: 07/30/16 0511 07/30/16 0511 Results 24 hrs Laboratory Tests Test 07/30/16 05:11 White Blood Count 13.3 H Red Blood Count 3.19 L Hemoglobin 9.6 L Hematocrit 28.4 L Mean Corpuscular Volume 89.0 Mean Corpuscular Hemoglobin 30.1 Mean Corpuscular Hemoglobin Concent 33.8 Red Cell Distribution Width 15.0 H Platelet Count 167 Mean Platelet Volume 8.6 Neutrophils % 79.5 H Lymphocytes % 12.3 L Monocytes % 3.2 Eosinophils % 4.3 Basophils % 0.2 Nucleated Red Blood Cells % 0.0 Neutrophils # 10.6 H Lymphocytes # 1.6 Monocytes # 0.4 Eosinophils # 0.6 H Basophils # 0.0 Nucleated Red Blood Cells # 0.0 Sodium Level 143 Potassium Level 3.9 Chloride Level 118 H Carbon Dioxide Level 17 L Anion Gap 12 Blood Urea Nitrogen 60 H Creatinine 3.39 H Glucose Level 86 Calcium Level 7.5 L Medications Medications Current Medications Acetaminophen (Tylenol Tab) 500 mg Q6H PRN PO PAIN AND OR ELEVATED TEMP; Start 07/09/16 at 20:30 Ondansetron HCl (Zofran Inj) 4 mg Q6H PRN IV NAUSEA AND/OR VOMITING; Start at 20:30 Aspirin (Aspirin) 81 mg DAILY PO Last administered on 07/30/16 07:54; Admin Dose 81 MG; Start 07/10/16 at 09:00 Benztropine Mesylate (Cogentin) 1 mg BID PO Last administered on 07/30/16 07: 54; Admin Dose 1 MG; Start 07/09/16 at 21:00 Finasteride (Proscar) 5 mg DAILY PO Last administered on 07/30/16 07:54; Admin Dose 5 MG; Start 07/10/16 at 09:00 Acetaminophen/ Hydrocodone Bitart ([place] (5/325)) 1 tab Q4 PRN PO SEVERE PAIN LEVEL 7-10 Last administered on 07/15/16 16:21; Admin Dose 1 TAB; Start at 20:30 Latanoprost (Xalatan) 1 drop QHS BOTH EYES Last administered on 07/29/16 21:53 ; Admin Dose 1 DROP; Start 07/09/16 at 21:00 Multivitamins Therapeutic (Theragran) 1 tab DAILY PO Last administered on 07:54; Admin Dose 1 TAB; Start 07/10/16 at 09:00 Olanzapine (Zyprexa) 5 mg QHS PO Last administered on 07/29/16 21:38; Admin Dose 5 MG; Start 07/09/16 at 21:00 Zinc Sulfate (Zinc Sulfate) 220 mg DAILY PO Last administered on 07/30/16 07: 54; Admin Dose 220 MG; Start 07/10/16 at 09:00 Acetaminophen (Tylenol Supp) 650 mg Q6H PRN [place] ELEVATED TEMPERATURE Last administered on 07/10/16 09:51; Admin Dose 650 MG; Start 07/10/16 at 09:30 Collagenase (Santyl) 1 applic DAILY TOP Last administered on 07/30/16 07:56; Admin Dose 1 APPLIC; Start 07/10/16 at 14:00 Bisacodyl (Dulcolax) 10 mg BID PO Last administered on 07/30/16 07:55; Admin Dose 10 MG; Start 07/13/16 at 15:00 Benazepril HCl (Lotensin) 20 mg DAILY PO Last administered on 07/30/16 07:54; Admin Dose 20 MG; Start 07/16/16 at 09:00 Zolpidem Tartrate (Ambien) 2.5 mg HS PRN PO INSOMNIA; Start 07/17/16 at 19:00 Epoetin Zana (Epogen (Esrd)) 6,000 units TuThSa@17 SC Last administered on 07/29 18:51; Admin Dose 6,000 UNITS; Start 07/17/16 at 20:00 Miscellaneous Information This patient ellis... PRN PRN XX WOUND CARE; Start at 07:00 Linezolid (Zyvox 600mg/D5W (Pmx)) 300 ml @ 300 mls/hr Q12 IVPB Last administered on 07/30/16 07:54; Admin Dose 300 MLS/HR; Start 07/18/16 at 11:00 Lorazepam (Ativan) 0.5 mg Q6H PRN PO ANXEITY Last administered on 07/19/16 22: 28; Admin Dose 0.5 MG; Start 07/18/16 at 16:00 Clonidine (Catapres) 0.1 mg TID PO Last administered on 07/30/16 13:03; Admin Dose 0.1 MG; Start 07/19/16 at 09:00 Nifedipine (Procardia Xl) 30 mg QHS PO Last administered on 07/29/16 21:38; Admin Dose 30 MG; Start 07/20/16 at 21:00 Vancomycin HCl 125 mg 125 mg Q6 PO Last administered on 07/30/16 13:03; Admin Dose 125 MG; Start 07/21/16 at 19:00 Metronidazole (Flagyl 500 Mg (Pmx)) 100 ml @ 100 mls/hr Q8 IVPB Last administered on 07/30/16 13:04; Admin Dose 100 MLS/HR; Start 07/22/16 at 16:30 Lactobacillus Acidophilus/ Rhamnosus (Culturelle) 1 cap BID PO Last administered on 07/30/16 07:56; Admin Dose 1 CAP; Start 07/23/16 at 21:00 Ascorbic Acid (Vitamin C) 500 mg DAILY PO Last administered on 07/30/16 07:55 ; Admin Dose 500 MG; Start 07/26/16 at 09:00 Metoprolol Tartrate (Lopressor) 25 mg BID PO Last administered on 07/30/16 07: 55; Admin Dose 25 MG; Start 07/28/16 at 21:00 Hydralazine HCl (Apresoline) 10 mg Q4H PRN IV ELEVATED BLOOD PRESSURE Last administered on 07/29/16 14:50; Admin Dose 10 MG; Start 07/28/16 at 20:30 Citric Acid/ Sodium Citrate (Bicitra) 15 ml BID PO Last administered on 07:56; Admin Dose 15 ML; Start 07/29/16 at 21:00 ALE MCCONNELL Jul 30, 2016 15:45
[2016-07-30] MEDS ORDERED: PHYTONADIONE 10 MG/ML INJ SC ONE (16:00)
[2016-07-30 20:08] VITALS: BP 161/81; RESP 20
[2016-07-30] MEDS: OLANZAPINE 5 MG TAB PO SCH (21:21)
[2016-07-30] MEDS: NIFEdipine (XL) 30 MG TAB PO SCH (21:24)
[2016-07-30] MEDS: LATANOPROST 0.005% 2.5 ML OPH BOTH EYES SCH (21:45)
[2016-07-31] MEDS: VANCOMYCIN HCL 250 MG/5ML POSYG PO SCH ×3 (05:39→18:02)
[2016-07-31] MEDS: metroNIDAZOLE 500 MG/NS (PMX) 100 ML IVPB SCH ×3 (05:39→22:34)
[2016-07-31 05:42] LABS: ADD SCAN DIFF NO
[2016-07-31 05:48] LABS: BASOPHILS % 0.2 % (0.0-2.0); EOSINOPHILS # 0.6 10^3/ul (0.0-0.5); EOSINOPHILS % 4.7 % (0.0-7.0); HEMATOCRIT 29.5 % (42.0-52.0); HEMOGLOBIN 9.5 g/dl (14.0-18.0); LYMPHOCYTES # 1.6 10^3/ul (0.8-2.9); LYMPHOCYTES % 12.6 % (15.0-51.0); MEAN CORPUSCULAR HEMOGLOBIN 28.9 pg (29.0-33.0); MEAN CORPUSCULAR HGB CONC 32.2 g/dl (32.0-37.0); MEAN CORPUSCULAR VOLUME 89.7 fl (82.0-101.0); MEAN PLATELET VOLUME 8.8 fl (7.4-10.4); MONOCYTE # 0.4 10^3/ul (0.3-0.9); MONOCYTES % 3.4 % (0.0-11.0); NEUTROPHIL # 9.7 10^3/ul (1.6-7.5); NEUTROPHILS % 78.7 % (39.0-77.0); PLATELET COUNT 132 10^3/UL (140-415); RED BLOOD COUNT 3.29 10^6/ul (4.70-6.10); RED CELL DISTRIBUTION WIDTH 14.8 % (11.5-14.5); WHITE BLOOD COUNT 12.3 10^3/ul (4.8-10.8)
[2016-07-31 06:00] LABS: INR 1.46; PROTIME 17.8 Sec (12.2-14.2); PT RATIO 1.4
[2016-07-31 06:17] LABS: CALCIUM 7.7 mg/dl (8.4-10.2); CREATININE 3.31 mg/dl (0.61-1.24); POTASSIUM 3.9 mmol/L (3.5-5.1)
[2016-07-31 08:03] VITALS: BP 160/99; RESP 18
[2016-07-31] MEDS: CITRIC ACID/SODIUM CITRATE 15 ML CUP PO SCH ×2 (09:52→21:41)
[2016-07-31 09:54] VITALS: BP 152/84; PULSE 64; PULSE 66
[2016-07-31] MEDS: FINASTERIDE 5 MG TAB PO SCH (09:55)
[2016-07-31] MEDS: PANTOPRAZOLE (EC) 40 MG TAB PO SCH (09:56)
[2016-07-31] MEDS: ASCORBIC ACID 500 MG TAB PO SCH (09:56)
[2016-07-31] MEDS: METOPROLOL 25 MG TAB PO SCH ×2 (09:56→21:43)
[2016-07-31] MEDS: ZINC SULFATE 220 MG CAP PO SCH (09:57)
[2016-07-31] MEDS: ASPIRIN 81 MG TAB PO SCH (09:57)
[2016-07-31] MEDS: BENAZEPRIL 20 MG TAB PO SCH (09:57)
[2016-07-31] MEDS: MULTIVITAMINS THERAPEUTIC TAB PO SCH (09:57)
[2016-07-31] MEDS: BISACODYL (EC) 5 MG TAB PO SCH ×2 (09:57→21:42)
[2016-07-31] MEDS: BENZTROPINE 1 MG TAB PO SCH ×2 (09:57→21:42)
[2016-07-31] MEDS: CALCIUM CARBONATE 750 MG CHEW TAB PO SCH ×3 (09:57→18:02)
[2016-07-31] MEDS: LACTOBACILLUS RHAMNOSUS CAP PO SCH ×2 (09:57→21:42)
[2016-07-31] MEDS: COLLAGENASE 30 GM TUBE TOP SCH (09:58)
[2016-07-31] MEDS: LINEZOLID 600 MG/D5W (PMX) 300 ML IVPB SCH ×2 (10:08→21:41)
--- NOTE | 2016-07-31 11:48 | CONS ---
Date/Time of Note Date/Time of Note DATE: 07/31/16 TIME: 11:47 Assessment/Plan Assessment/Plan Chief Complaint/Hosp Course - leukocytosis, possible early sepsis - improving - infection of wounds of b/l heel due to MRSA, enterococcus sp and corynebacter jeikeium (grp JK); XR showed no bony abnormalities - unstageable decub of b/l heel - C diff colitis - s/p possible HCAP, Pt completed empiric cefepime (07/10/2016-07/19/2016); CXR on 07/20/2016 showed improvement. 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 Given by IV because Pt's often confused and PO intake can be affected. Will monitor CBC while Pt's on linezolid. - continue PO vancomycin (07/15/2016-) while Pt's on antibiotics - continue IV Flagyl (07/22/2016 Problems: Consultation Date/Type/Reason Admit Date/Time July 09, 2016 at 12:24 Type of Consultation: id Referring Provider: RONNIE PATEL MD Exam/Review of Systems Vital Signs Vitals Vital Signs Date Time Temp Pulse Resp B/P Pulse Ox O2 Delivery O2 Flow Rate FiO2 07/31/16 09:54 64 152/84 66 07/31/16 08:03 98.4 18 93 07/30/16 15:43 21 07/30/16 08:00 Nasal Cannula 07/30/16 04:35 2.0 Intake and Output 07/30/16 07/30/16 07/31/16 15:00 23:00 07:00 Intake Total 100 ml 900 ml 800 ml Output Total 1000 ml 900 ml Balance 100 ml -100 ml -100 ml Results Result Diagram: 07/31/16 0515 07/31/16 0515 Results 24 hrs Laboratory Tests Test 07/31/16 05:15 White Blood Count 12.3 H Red Blood Count 3.29 L Hemoglobin 9.5 L Hematocrit 29.5 L Mean Corpuscular Volume 89.7 Mean Corpuscular Hemoglobin 28.9 L Mean Corpuscular Hemoglobin Concent 32.2 Red Cell Distribution Width 14.8 H Platelet Count 131 L Mean Platelet Volume 8.8 Neutrophils % 78.7 H Lymphocytes % 12.6 L Monocytes % 3.4 Eosinophils % 4.7 Basophils % 0.2 Nucleated Red Blood Cells % 0.0 Neutrophils # 9.7 H Lymphocytes # 1.6 Monocytes # 0.4 Eosinophils # 0.6 H Basophils # 0.0 Nucleated Red Blood Cells # 0.0 Prothrombin Time 17.8 H Prothrombin Time Ratio 1.4 INR International Normalized Ratio 1.46 Activated Partial Thromboplast Time 37.0 H Thrombin Time Pending Sodium Level 145 H Potassium Level 3.9 Chloride Level 119 H Carbon Dioxide Level 19 L Anion Gap 11 Blood Urea Nitrogen 60 H Creatinine 3.31 H Glucose Level 80 Calcium Level 7.7 L Medications Medications Current Medications Acetaminophen (Tylenol Tab) 500 mg Q6H PRN PO PAIN AND OR ELEVATED TEMP; Start 07/09/16 at 20:30 Ondansetron HCl (Zofran Inj) 4 mg Q6H PRN IV NAUSEA AND/OR VOMITING; Start at 20:30 Aspirin (Aspirin) 81 mg DAILY PO Last administered on 07/31/16 09:57; Admin Dose 81 MG; Start 07/10/16 at 09:00 Benztropine Mesylate (Cogentin) 1 mg BID PO Last administered on 07/31/16 09: 57; Admin Dose 1 MG; Start 07/09/16 at 21:00 Finasteride (Proscar) 5 mg DAILY PO Last administered on 07/31/16 09:55; Admin Dose 5 MG; Start 07/10/16 at 09:00 Acetaminophen/ Hydrocodone Bitart ([place] (5/325)) 1 tab Q4 PRN PO SEVERE PAIN LEVEL 7-10 Last administered on 07/15/16 16:21; Admin Dose 1 TAB; Start at 20:30 Latanoprost (Xalatan) 1 drop QHS BOTH EYES Last administered on 07/30/16 21:45 ; Admin Dose 1 DROP; Start 07/09/16 at 21:00 Multivitamins Therapeutic (Theragran) 1 tab DAILY PO Last administered on 09:57; Admin Dose 1 TAB; Start 07/10/16 at 09:00 Olanzapine (Zyprexa) 5 mg QHS PO Last administered on 07/30/16 21:21; Admin Dose 5 MG; Start 07/09/16 at 21:00 Zinc Sulfate (Zinc Sulfate) 220 mg DAILY PO Last administered on 07/31/16 09: 57; Admin Dose 220 MG; Start 07/10/16 at 09:00 Acetaminophen (Tylenol Supp) [address] ELEVATED TEMPERATURE Last administered on 07/10/16 09:51; Admin Dose 650 MG; Start 07/10/16 at 09:30 Collagenase (Santyl) 1 applic DAILY TOP Last administered on 07/31/16 09:58; Admin Dose 1 APPLIC; Start 07/10/16 at 14:00 Bisacodyl (Dulcolax) 10 mg BID PO Last administered on 07/31/16 09:57; Admin Dose 10 MG; Start 07/13/16 at 15:00 Benazepril HCl (Lotensin) 20 mg DAILY PO Last administered on 07/31/16 09:57; Admin Dose 20 MG; Start 07/16/16 at 09:00 Zolpidem Tartrate (Ambien) 2.5 mg HS PRN PO INSOMNIA; Start 07/17/16 at 19:00 Epoetin Zana (Epogen (Esrd)) 6,000 units TuThSa@17 SC Last administered on 07/29 18:51; Admin Dose 6,000 UNITS; Start 07/17/16 at 20:00 Miscellaneous Information This patient ellis... PRN PRN XX WOUND CARE; Start at 07:00 Linezolid (Zyvox 600mg/D5W (Pmx)) 300 ml @ 300 mls/hr Q12 IVPB Last administered on 07/31/16 10:08; Admin Dose 300 MLS/HR; Start 07/18/16 at 11:00 Lorazepam (Ativan) 0.5 mg Q6H PRN PO ANXEITY Last administered on 07/19/16 22: 28; Admin Dose 0.5 MG; Start 07/18/16 at 16:00 Clonidine (Catapres) 0.1 mg TID PO Last administered on 07/31/16 09:56; Admin Dose 0.1 MG; Start 07/19/16 at 09:00 Nifedipine (Procardia Xl) 30 mg QHS PO Last administered on 07/30/16 21:24; Admin Dose 30 MG; Start 07/20/16 at 21:00 Vancomycin HCl 125 mg 125 mg Q6 PO Last administered on 07/31/16 05:39; Admin Dose 125 MG; Start 07/21/16 at 19:00 Metronidazole (Flagyl 500 Mg (Pmx)) 100 ml @ 100 mls/hr Q8 IVPB Last administered on 07/31/16 05:39; Admin Dose 100 MLS/HR; Start 07/22/16 at 16:30 Lactobacillus Acidophilus/ Rhamnosus (Culturelle) 1 cap BID PO Last administered on 07/31/16 09:57; Admin Dose 1 CAP; Start 07/23/16 at 21:00 Ascorbic Acid (Vitamin C) 500 mg DAILY PO Last administered on 07/31/16 09:56 ; Admin Dose 500 MG; Start 07/26/16 at 09:00 Metoprolol Tartrate (Lopressor) 25 mg BID PO Last administered on 07/31/16 09: 56; Admin Dose 25 MG; Start 07/28/16 at 21:00 Hydralazine HCl (Apresoline) 10 mg Q4H PRN IV ELEVATED BLOOD PRESSURE Last administered on 07/29/16 14:50; Admin Dose 10 MG; Start 07/28/16 at 20:30 Citric Acid/ Sodium Citrate (Bicitra) 15 ml BID PO Last administered on 09:52; Admin Dose 15 ML; Start 07/29/16 at 21:00 ALVA GEE MD Jul 31, 2016 11:48
--- NOTE | 2016-07-31 12:15 | CONS ---
Date/Time of Note Date/Time of Note DATE: 07/31/16 TIME: 12:12 Assessment/Plan Assessment/Plan Chief Complaint/Hosp Course IMPRESSION: 1. Preoperative evaluation prior to debridement of heel decubitus ulcers.- negative trop x 3/NL EF by echo this admit with no sig contraindicated valve lesions. Ok to proceed to OR on BB continue pre-post op without further non- invasive eval at moderate risk 2. Hypertension-uncontrolled 3. Abnormal electrocardiogram with anteroseptal Q's and normal ejection fraction by echo this admit. 4. Clostridium difficile Colitis. 5. Renal failure. 6. Encephalopathy. 7. Chronic obstructive pulmonary disease. 8. History of cerebrovascular accident. 9. Dyslipidemia. 10. Dementia. 11. Anemia. 12. Leukocytosis. 12. Coagulopathy. Recc: -Continue asa -Continue abx's and f/u cx data -local wound care -Continue current BB -Contiue procardia XL with slight uptitration to improve SBP control -Continue clonidine -Follow volume status closely Problems: Consultation Date/Type/Reason Admit Date/Time July 09, 2016 at 12:24 Initial Consult Date 07/26/16 Type of Consultation: cardiology Reason for Consultation Pre-op Referring Provider: RONNIE PATEL MD Exam/Review of Systems Vital Signs Vitals Vital Signs Date Time Temp Pulse Resp B/P Pulse Ox O2 Delivery O2 Flow Rate FiO2 07/31/16 09:54 64 152/84 66 07/31/16 08:03 98.4 18 93 07/30/16 15:43 21 07/30/16 08:00 Nasal Cannula 07/30/16 04:35 2.0 Intake and Output 07/30/16 07/30/16 07/31/16 15:00 23:00 07:00 Intake Total 100 ml 900 ml 800 ml Output Total 1000 ml 900 ml Balance 100 ml -100 ml -100 ml Exam Review of Systems: CONSTITUTIONAL: No fevers, chills. PULMONARY: No sob CARDIOVASCULAR: No chest pain/palpitations GASTROINTESTINAL: No nausea/vomiting. GENITOURINARY: No hematuria/dysuria. MUSCULOSKELETAL: No myagias/arthalgias. PSYCHIATRIC: The patient denies depression. NEUROLOGIC: lethargic Constitutional: alert, oriented Psych: no complaints Head: normocephalic ENMT: mucosa pink and moist Neck: jvd, supple Respiratory: diminished breath sounds Cardiovascular: edema, regular rate and rhythm Gastrointestinal: non-tender, soft Musculoskeletal: muscle tone (normal) Extremities: edema (none) Neurological: other (No focal deficits) Results Result Diagram: 07/31/1615 07/31/16 0515 Results 24 hrs Laboratory Tests Test 07/31/16 05:15 White Blood Count 12.3 H Red Blood Count 3.29 L Hemoglobin 9.5 L Hematocrit 29.5 L Mean Corpuscular Volume 89.7 Mean Corpuscular Hemoglobin 28.9 L Mean Corpuscular Hemoglobin Concent 32.2 Red Cell Distribution Width 14.8 H Platelet Count 131 L Mean Platelet Volume 8.8 Neutrophils % 78.7 H Lymphocytes % 12.6 L Monocytes % 3.4 Eosinophils % 4.7 Basophils % 0.2 Nucleated Red Blood Cells % 0.0 Neutrophils # 9.7 H Lymphocytes # 1.6 Monocytes # 0.4 Eosinophils # 0.6 H Basophils # 0.0 Nucleated Red Blood Cells # 0.0 Prothrombin Time 17.8 H Prothrombin Time Ratio 1.4 INR International Normalized Ratio 1.46 Activated Partial Thromboplast Time 37.0 H Thrombin Time Pending Sodium Level 145 H Potassium Level 3.9 Chloride Level 119 H Carbon Dioxide Level 19 L Anion Gap 11 Blood Urea Nitrogen 60 H Creatinine 3.31 H Glucose Level 80 Calcium Level 7.7 L Medications Medications Current Medications Acetaminophen (Tylenol Tab) 500 mg Q6H PRN PO PAIN AND OR ELEVATED TEMP; Start 07/09/16 at 20:30 Ondansetron HCl (Zofran Inj) 4 mg Q6H PRN IV NAUSEA AND/OR VOMITING; Start at 20:30 Aspirin (Aspirin) 81 mg DAILY PO Last administered on 07/31/16 09:57; Admin Dose 81 MG; Start 07/10/16 at 09:00 Benztropine Mesylate (Cogentin) 1 mg BID PO Last administered on 07/31/16 09: 57; Admin Dose 1 MG; Start 07/09/16 at 21:00 Finasteride (Proscar) 5 mg DAILY PO Last administered on 07/31/16 09:55; Admin Dose 5 MG; Start 07/10/16 at 09:00 Acetaminophen/ Hydrocodone Bitart ([place] (5/325)) 1 tab Q4 PRN PO SEVERE PAIN LEVEL 7-10 Last administered on 07/15/16 16:21; Admin Dose 1 TAB; Start at 20:30 Latanoprost (Xalatan) 1 drop QHS BOTH EYES Last administered on 07/30/16 21:45 ; Admin Dose 1 DROP; Start 07/09/16 at 21:00 Multivitamins Therapeutic (Theragran) 1 tab DAILY PO Last administered on 09:57; Admin Dose 1 TAB; Start 07/10/16 at 09:00 Olanzapine (Zyprexa) 5 mg QHS PO Last administered on 07/30/16 21:21; Admin Dose 5 MG; Start 07/09/16 at 21:00 Zinc Sulfate (Zinc Sulfate) 220 mg DAILY PO Last administered on 07/31/16 09: 57; Admin Dose 220 MG; Start 07/10/16 at 09:00 Acetaminophen (Tylenol Supp) 650 mg Q6H PRN [place] ELEVATED TEMPERATURE Last administered on 07/10/16 09:51; Admin Dose 650 MG; Start 07/10/16 at 09:30 Collagenase (Santyl) 1 applic DAILY TOP Last administered on 07/31/16 09:58; Admin Dose 1 APPLIC; Start 07/10/16 at 14:00 Bisacodyl (Dulcolax) 10 mg BID PO Last administered on 07/31/16 09:57; Admin Dose 10 MG; Start 07/13/16 at 15:00 Benazepril HCl (Lotensin) 20 mg DAILY PO Last administered on 07/31/16 09:57; Admin Dose 20 MG; Start 07/16/16 at 09:00 Zolpidem Tartrate (Ambien) 2.5 mg HS PRN PO INSOMNIA; Start 07/17/16 at 19:00 Epoetin Zana (Epogen (Esrd)) 6,000 units TuThSa@17 SC Last administered on 07/29 18:51; Admin Dose 6,000 UNITS; Start 07/17/16 at 20:00 Miscellaneous Information This patient ellis... PRN PRN XX WOUND CARE; Start at 07:00 Linezolid (Zyvox 600mg/D5W (Pmx)) 300 ml @ 300 mls/hr Q12 IVPB Last administered on 07/31/16 10:08; Admin Dose 300 MLS/HR; Start 07/18/16 at 11:00 Lorazepam (Ativan) 0.5 mg Q6H PRN PO ANXEITY Last administered on 07/19/16 22: 28; Admin Dose 0.5 MG; Start 07/18/16 at 16:00 Clonidine (Catapres) 0.1 mg TID PO Last administered on 07/31/16 09:56; Admin Dose 0.1 MG; Start 07/19/16 at 09:00 Nifedipine (Procardia Xl) 30 mg QHS PO Last administered on 07/30/16 21:24; Admin Dose 30 MG; Start 07/20/16 at 21:00 Vancomycin HCl 125 mg 125 mg Q6 PO Last administered on 07/31/16 05:39; Admin Dose 125 MG; Start 07/21/16 at 19:00 Metronidazole (Flagyl 500 Mg (Pmx)) 100 ml @ 100 mls/hr Q8 IVPB Last administered on 07/31/16 05:39; Admin Dose 100 MLS/HR; Start 07/22/16 at 16:30 Lactobacillus Acidophilus/ Rhamnosus (Culturelle) 1 cap BID PO Last administered on 07/31/16 09:57; Admin Dose 1 CAP; Start 07/23/16 at 21:00 Ascorbic Acid (Vitamin C) 500 mg DAILY PO Last administered on 07/31/16 09:56 ; Admin Dose 500 MG; Start 07/26/16 at 09:00 Metoprolol Tartrate (Lopressor) 25 mg BID PO Last administered on 07/31/16 09: 56; Admin Dose 25 MG; Start 07/28/16 at 21:00 Hydralazine HCl (Apresoline) 10 mg Q4H PRN IV ELEVATED BLOOD PRESSURE Last administered on 07/29/16 14:50; Admin Dose 10 MG; Start 07/28/16 at 20:30 Citric Acid/ Sodium Citrate (Bicitra) 15 ml BID PO Last administered on 09:52; Admin Dose 15 ML; Start 07/29/16 at 21:00 PACHECO COHEN 15, 2017 12:15
--- NOTE | 2016-07-31 12:30 | PN ---
Date/Time of Note Date/Time of Note DATE: 07/31/16 TIME: 12:29 Assessment/Plan VTE Prophylaxis VTE Prophylaxis Intervention: other Lines/Catheters IV Catheter Type (from Nrs): Saline Lock Urinary Cath still in place: Yes Reason Cath still needed: urinary retention Assessment/Plan Assessment/Plan - Bilateral heel wounds - per Dr. Simental in general surgery consultation, plan for bilateral heel debridement on Thursday. Cleared by cardiology for procedure. - Infected wounds on bilateral lower extremities. Continue antibiotics per ID. - C. difficile colitis. - per ID - Continue oral vancomycin and intravenous metronidazole. - Colitis ulcers per colonoscopy - per gastroenterology recommendations. - Acute kidney injury on chronic kidney disease stage III. -per Dr. Srinivasan in nephrology consultation. - Acute metabolic encephalopathy, resolving. - Hypertension. Continue clonidine, Procardia and benazepril - Chronic obstructive pulmonary disease. Continue DuoNeb. - Benign prostatic hypertrophy. Continue Flomax. - Multiple decubitus ulcers present on admission. Continue local wound care, offloading. - Acute cerebrovascular accident. Continue aspirin. - Dyslipidemia. Continue Lipitor. - Dementia with behavioral disturbance. Continue Zyprexa Further recommendations based on clinical course. Plan of care discussed with Dr. Rene. Subjective 24 Hr Interval Summary Free Text/Dictation alert,awake. responsive, no tongue swelling noted, speech is clear, follows simple commands, cooperate, afebrile, plan for bilateral heel debridement on Thursday. Cleared by cardiology for procedure. dw staff- no new issues reported. Respiratory: no complaints Cardiovascular: no complaints Genitourinary: no complaints Skin: other Exam/Review of Systems Vital Signs Vitals Vital Signs Date Time Temp Pulse Resp B/P Pulse Ox O2 Delivery O2 Flow Rate FiO2 07/31/16 09:54 64 152/84 66 07/31/16 08:03 98.4 18 93 07/30/16 15:43 21 07/30/16 08:00 Nasal Cannula 07/30/16 04:35 2.0 Intake and Output 07/30/16 07/30/16 07/31/16 15:00 23:00 07:00 Intake Total 100 ml 900 ml 800 ml Output Total 1000 ml 900 ml Balance 100 ml -100 ml -100 ml Exam Constitutional: alert, well developed Respiratory: clear to auscultation, normal air movement Cardiovascular: nl pulses, regular rate and rhythm Gastrointestinal: non-tender, soft Musculoskeletal: nl extremities to inspection Extremities: normal pulses Neurological: nl speech, other (oriented to name) Skin: other Results Result Diagram: 07/31/1615 07/31/16 0515 Results 24 hrs Laboratory Tests Test 07/31/16 05:15 White Blood Count 12.3 H Red Blood Count 3.29 L Hemoglobin 9.5 L Hematocrit 29.5 L Mean Corpuscular Volume 89.7 Mean Corpuscular Hemoglobin 28.9 L Mean Corpuscular Hemoglobin Concent 32.2 Red Cell Distribution Width 14.8 H Platelet Count 131 L Mean Platelet Volume 8.8 Neutrophils % 78.7 H Lymphocytes % 12.6 L Monocytes % 3.4 Eosinophils % 4.7 Basophils % 0.2 Nucleated Red Blood Cells % 0.0 Neutrophils # 9.7 H Lymphocytes # 1.6 Monocytes # 0.4 Eosinophils # 0.6 H Basophils # 0.0 Nucleated Red Blood Cells # 0.0 Prothrombin Time 17.8 H Prothrombin Time Ratio 1.4 INR International Normalized Ratio 1.46 Activated Partial Thromboplast Time 37.0 H Thrombin Time Pending Sodium Level 145 H Potassium Level 3.9 Chloride Level 119 H Carbon Dioxide Level 19 L Anion Gap 11 Blood Urea Nitrogen 60 H Creatinine 3.31 H Glucose Level 80 Calcium Level 7.7 L Medications Medications Current Medications Acetaminophen (Tylenol Tab) 500 mg Q6H PRN PO PAIN AND OR ELEVATED TEMP; Start 07/09/16 at 20:30 Ondansetron HCl (Zofran Inj) 4 mg Q6H PRN IV NAUSEA AND/OR VOMITING; Start at 20:30 Aspirin (Aspirin) 81 mg DAILY PO Last administered on 07/31/16 09:57; Admin Dose 81 MG; Start 07/10/16 at 09:00 Benztropine Mesylate (Cogentin) 1 mg BID PO Last administered on 07/31/16 09: 57; Admin Dose 1 MG; Start 07/09/16 at 21:00 Finasteride (Proscar) 5 mg DAILY PO Last administered on 07/31/16 09:55; Admin Dose 5 MG; Start 07/10/16 at 09:00 Acetaminophen/ Hydrocodone Bitart ([place] (5/325)) 1 tab Q4 PRN PO SEVERE PAIN LEVEL 7-10 Last administered on 07/15/16 16:21; Admin Dose 1 TAB; Start at 20:30 Latanoprost (Xalatan) 1 drop QHS BOTH EYES Last administered on 07/30/16 21:45 ; Admin Dose 1 DROP; Start 07/09/16 at 21:00 Multivitamins Therapeutic (Theragran) 1 tab DAILY PO Last administered on 09:57; Admin Dose 1 TAB; Start 07/10/16 at 09:00 Olanzapine (Zyprexa) 5 mg QHS PO Last administered on 07/30/16 21:21; Admin Dose 5 MG; Start 07/09/16 at 21:00 Zinc Sulfate (Zinc Sulfate) 220 mg DAILY PO Last administered on 07/31/16 09: 57; Admin Dose 220 MG; Start 07/10/16 at 09:00 Acetaminophen (Tylenol Supp) 650 mg Q6H PRN [place] ELEVATED TEMPERATURE Last administered on 07/10/16 09:51; Admin Dose 650 MG; Start 07/10/16 at 09:30 Collagenase (Santyl) 1 applic DAILY TOP Last administered on 07/31/16 09:58; Admin Dose 1 APPLIC; Start 07/10/16 at 14:00 Bisacodyl (Dulcolax) 10 mg BID PO Last administered on 07/31/16 09:57; Admin Dose 10 MG; Start 07/13/16 at 15:00 Benazepril HCl (Lotensin) 20 mg DAILY PO Last administered on 07/31/16 09:57; Admin Dose 20 MG; Start 07/16/16 at 09:00 Zolpidem Tartrate (Ambien) 2.5 mg HS PRN PO INSOMNIA; Start 07/17/16 at 19:00 Epoetin Zana (Epogen (Esrd)) 6,000 units TuThSa@17 SC Last administered on 07/29 18:51; Admin Dose 6,000 UNITS; Start 07/17/16 at 20:00 Miscellaneous Information This patient ellis... PRN PRN XX WOUND CARE; Start at 07:00 Linezolid (Zyvox 600mg/D5W (Pmx)) 300 ml @ 300 mls/hr Q12 IVPB Last administered on 07/31/16 10:08; Admin Dose 300 MLS/HR; Start 07/18/16 at 11:00 Lorazepam (Ativan) 0.5 mg Q6H PRN PO ANXEITY Last administered on 07/19/16 22: 28; Admin Dose 0.5 MG; Start 07/18/16 at 16:00 Clonidine (Catapres) 0.1 mg TID PO Last administered on 07/31/16 09:56; Admin Dose 0.1 MG; Start 07/19/16 at 09:00 Vancomycin HCl 125 mg 125 mg Q6 PO Last administered on 07/31/16 05:39; Admin Dose 125 MG; Start 07/21/16 at 19:00 Metronidazole (Flagyl 500 Mg (Pmx)) 100 ml @ 100 mls/hr Q8 IVPB Last administered on 07/31/16 05:39; Admin Dose 100 MLS/HR; Start 07/22/16 at 16:30 Lactobacillus Acidophilus/ Rhamnosus (Culturelle) 1 cap BID PO Last administered on 07/31/16 09:57; Admin Dose 1 CAP; Start 07/23/16 at 21:00 Ascorbic Acid (Vitamin C) 500 mg DAILY PO Last administered on 07/31/16 09:56 ; Admin Dose 500 MG; Start 07/26/16 at 09:00 Metoprolol Tartrate (Lopressor) 25 mg BID PO Last administered on 07/31/16 09: 56; Admin Dose 25 MG; Start 07/28/16 at 21:00 Hydralazine HCl (Apresoline) 10 mg Q4H PRN IV ELEVATED BLOOD PRESSURE Last administered on 07/29/16 14:50; Admin Dose 10 MG; Start 07/28/16 at 20:30 Citric Acid/ Sodium Citrate (Bicitra) 15 ml BID PO Last administered on 09:52; Admin Dose 15 ML; Start 07/29/16 at 21:00 Nifedipine (Procardia Xl) 30 mg BID PO ; Start 07/31/16 at 13:00 ISAEL CRYSTAL Jul 31, 2016 12:30
[2016-07-31] MEDS: NIFEdipine (XL) 30 MG TAB PO SCH ×2 (12:35→21:43)
--- NOTE | 2016-07-31 12:56 | PN ---
Date/Time of Note Date/Time of Note DATE: 07/31/16 TIME: 12:51 Assessment/Plan Lines/Catheters IV C[facility] Type [facility] Saline Lock [place] in Place (from Nrs): Yes Assessment/Plan Problems: (1) Decubitus ulcer of left heel, stage 2 (2) Decubitus ulcer of right heel, stage 4 (3) Peripheral vascular disease Assessment/Plan I continue to NOT recommend surgery for this patient regarding his decubitus heel ulcers. The ulcers are stable and non infected. The eschar on the heels is a biological dressing and is protective against exposure of bilateral calcaneus. I recommend to continue heel protectors at all times. Patient is bed bound and does not move his feet. I have discussed this with Dr. Rene. Will follow patient in house. Exam/Review of Systems Vital Signs Vitals Vital Signs Date Time Temp Pulse Resp B/P Pulse Ox O2 Delivery O2 Flow Rate FiO2 07/31/16 09:54 64 152/84 66 07/31/16 08:03 98.4 18 93 07/30/16 15:43 21 07/30/16 08:00 Nasal Cannula 07/30/16 04:35 2.0 Intake and Output 07/30/16 07/30/16 07/31/16 15:00 23:00 07:00 Intake Total 100 ml 900 ml 800 ml Output Total 1000 ml 900 ml Balance 100 ml -100 ml -100 ml Results Result Diagram: 07/31/16 0515 07/31/16 0515 NIRAV GIMENEZ [facility] Jul 31, 2016 12:56
--- NOTE | 2016-07-31 14:02 | PN ---
DATE: 07/31/2016 SUBJECTIVE: No complaint. Awake, alert and follows some orders responding to simple commands. OBJECTIVE: VITAL SIGNS: Temperature 98.4, heart rate 64, respirations 18, blood pressure 160/99, saturation 93% on room air. LABS: WBC 12,300 with 78% segmented, ____ elevated, hemoglobin 9.5, hematocrit 29.5. Chemistry: Sodium 145, potassium 3.9. BUN 60, creatinine 3.31. Coagulation: PT 17.8, INR is 1.46. Patient has received vitamin K last night, subcutaneous and we are going to give it today subq as well 10 mg. Evaluation of the feet, slightly gotten better, periphery of the scar is more granulation tissue forming but the central part shows the dense total black eschar which is tissue and extending down to., probably on the right heel, there is some infection under the scar. Meanwhile that was examined. PLAN: Patient's sister Carol also arrived. She strongly agrees and she wants me to do the operation and remove the tissue from the heel. I explained to her that even though we remove it, but it takes time to get granulation tissue to hopefully form and there is always going to be some defect in the padding of the heels bilaterally. She agrees, she understands that and we are going to proceed with debridement tomorrow, hopefully. Dictated By: LISSETH RIVERS/MEAGAN Conf#: [id number] DID#: [id number] MTDD
[2016-07-31 16:55] LABS: INR 1.33; PARTIAL THROMBOPLASTIN TIME 33.4 Sec (25.0-35.0); PROTIME 16.6 Sec (12.2-14.2); PT RATIO 1.3
[2016-07-31 19:16] VITALS: BP 160/78
[2016-07-31] MEDS: OLANZAPINE 5 MG TAB PO SCH (21:42)
--- NOTE | 2016-07-31 21:47 | PN ---
Date/Time of Note Date/Time of Note DATE: 07/31/16 TIME: 21:41 Assessment/Plan VTE Prophylaxis VTE Prophylaxis Intervention: anti-embolic stocking Lines/Catheters [facility] Saline Lock Central line insert date: Jul 17, 2016 Central line still needed: No Urinary Cath still in place: Yes Reason Cath still needed: urinary retention Assessment/Plan Chief Complaint/Hosp Course Serial labs continue to show stable renal fn Hct has improved prob with blood Tx carried out on 07/28 Problems: Assessment/Plan Renal tierney no further plans WBC has come down, infection may be under control Cont'd Hospitalization Reason: will continue f/u Subjective 24 Hr Interval Summary Free Text/Dictation Pt remains confused Constitutional: disoriented, improved, no complaints Eyes: no complaints ENT: no complaints Respiratory: no complaints Cardiovascular: no complaints Gastrointestinal: no complaints Genitourinary: no complaints Musculoskeletal: no complaints Skin: no complaints Neurologic: confusion, no complaints Endocrine: no complaints Lymphatic: no complaints Psychological: nl mood/affect, no complaints Immunologic: no complaints Exam/Review of Systems Vital Signs Vitals Vital Signs Date Time Temp Pulse Resp B/P Pulse Ox O2 Delivery O2 Flow Rate FiO2 07/31/16 19:16 97.5 71 160/78 07/31/16 08:03 18 93 07/30/16 15:43 21 07/30/16 08:00 Nasal Cannula 07/30/16 04:35 2.0 Intake and Output 07/30/16 07/30/16 07/31/16 15:00 23:00 07:00 Intake Total 100 ml 900 ml 800 ml Output Total 1000 ml 900 ml Balance 100 ml -100 ml -100 ml Exam Pt remains confined to bed Constitutional: well developed Psych: nl mood/affect, no complaints Head: atraumatic, normocephalic Eyes: EOMI, PERRL, nl conjunctiva, nl lids, nl sclera ENMT: nl external ears & nose, nl lips & teeth, nl nasal mucosa & septum Neck: non-tender, supple Respiratory: clear to auscultation, normal air movement Cardiovascular: nl pulses, regular rate and rhythm Gastrointestinal: nl liver, spleen, non-tender, soft Genitourinary - Male: other (tellez cTHETER IN PLACE) Musculoskeletal: nl extremities to inspection, nl gait and stance Extremities: normal pulses 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, nl mental status, nl speech, nl strength Skin: nl turgor, No rash or lesions Lymph: nl lymph nodes Results Result Diagram: 07/31/16 0515 07/31/16 0515 Results 24 hrs Laboratory Tests Test 07/31/16 05:15 07/31/16 16:15 White Blood Count 12.3 H Red Blood Count 3.29 L Hemoglobin 9.5 L Hematocrit 29.5 L Mean Corpuscular Volume 89.7 Mean Corpuscular Hemoglobin 28.9 L Mean Corpuscular Hemoglobin Concent 32.2 Red Cell Distribution Width 14.8 H Platelet Count 131 L Mean Platelet Volume 8.8 Neutrophils % 78.7 H Lymphocytes % 12.6 L Monocytes % 3.4 Eosinophils % 4.7 Basophils % 0.2 Nucleated Red Blood Cells % 0.0 Neutrophils # 9.7 H Lymphocytes # 1.6 Monocytes # 0.4 Eosinophils # 0.6 H Basophils # 0.0 Nucleated Red Blood Cells # 0.0 Prothrombin Time 17.8 H 16.6 H Prothrombin Time Ratio 1.4 1.3 INR International Normalized Ratio 1.46 1.33 Activated Partial Thromboplast Time 37.0 H 33.4 Thrombin Time 17.0 Sodium Level 145 H Potassium Level 3.9 Chloride Level 119 H Carbon Dioxide Level 19 L Anion Gap 11 Blood Urea Nitrogen 60 H Creatinine 3.31 H Glucose Level 80 Calcium Level 7.7 L Medications Medications Current Medications Acetaminophen (Tylenol Tab) 500 mg Q6H PRN PO PAIN AND OR ELEVATED TEMP; Start 07/09/16 at 20:30 Ondansetron HCl (Zofran Inj) 4 mg Q6H PRN IV NAUSEA AND/OR VOMITING; Start at 20:30 Aspirin (Aspirin) 81 mg DAILY PO Last administered on 07/31/16 09:57; Admin Dose 81 MG; Start 07/10/16 at 09:00 Benztropine Mesylate (Cogentin) 1 mg BID PO Last administered on 07/31/16 09: 57; Admin Dose 1 MG; Start 07/09/16 at 21:00 Finasteride (Proscar) 5 mg DAILY PO Last administered on 07/31/16 09:55; Admin Dose 5 MG; Start 07/10/16 at 09:00 Acetaminophen/ Hydrocodone Bitart ([place] (5/325)) 1 tab Q4 PRN PO SEVERE PAIN LEVEL 7-10 Last administered on 07/15/16 16:21; Admin Dose 1 TAB; Start at 20:30 Latanoprost (Xalatan) 1 drop QHS BOTH EYES Last administered on 07/30/16 21:45 ; Admin Dose 1 DROP; Start 07/09/16 at 21:00 Multivitamins Therapeutic (Theragran) 1 tab DAILY PO Last administered on 09:57; Admin Dose 1 TAB; Start 07/10/16 at 09:00 Olanzapine (Zyprexa) 5 mg QHS PO Last administered on 07/30/16 21:21; Admin Dose 5 MG; Start 07/09/16 at 21:00 Zinc Sulfate (Zinc Sulfate) 220 mg DAILY PO Last administered on 07/31/16 09: 57; Admin Dose 220 MG; Start 07/10/16 at 09:00 Acetaminophen (Tylenol Supp) 650 mg Q6H PRN [place] ELEVATED TEMPERATURE Last administered on 07/10/16 09:51; Admin Dose 650 MG; Start 07/10/16 at 09:30 Collagenase (Santyl) 1 applic DAILY TOP Last administered on 07/31/16 09:58; Admin Dose 1 APPLIC; Start 07/10/16 at 14:00 Bisacodyl (Dulcolax) 10 mg BID PO Last administered on 07/31/16 09:57; Admin Dose 10 MG; Start 07/13/16 at 15:00 Benazepril HCl (Lotensin) 20 mg DAILY PO Last administered on 07/31/16 09:57; Admin Dose 20 MG; Start 07/16/16 at 09:00 Zolpidem Tartrate (Ambien) 2.5 mg HS PRN PO INSOMNIA; Start 07/17/16 at 19:00 Epoetin Zana (Epogen (Esrd)) 6,000 units TuThSa@17 SC Last administered on 07/29 18:51; Admin Dose 6,000 UNITS; Start 07/17/16 at 20:00 Miscellaneous Information This patient ellis... PRN PRN XX WOUND CARE; Start at 07:00 Linezolid (Zyvox 600mg/D5W (Pmx)) 300 ml @ 300 mls/hr Q12 IVPB Last administered on 07/31/16 10:08; Admin Dose 300 MLS/HR; Start 07/18/16 at 11:00 Lorazepam (Ativan) 0.5 mg Q6H PRN PO ANXEITY Last administered on 07/19/16 22: 28; Admin Dose 0.5 MG; Start 07/18/16 at 16:00 Clonidine (Catapres) 0.1 mg TID PO Last administered on 07/31/16 12:34; Admin Dose 0.1 MG; Start 07/19/16 at 09:00 Vancomycin HCl 125 mg 125 mg Q6 PO Last administered on 07/31/16 18:02; Admin Dose 125 MG; Start 07/21/16 at 19:00 Metronidazole (Flagyl 500 Mg (Pmx)) 100 ml @ 100 mls/hr Q8 IVPB Last administered on 07/31/16 13:54; Admin Dose 100 MLS/HR; Start 07/22/16 at 16:30 Lactobacillus Acidophilus/ Rhamnosus (Culturelle) 1 cap BID PO Last administered on 07/31/16 09:57; Admin Dose 1 CAP; Start 07/23/16 at 21:00 Ascorbic Acid (Vitamin C) 500 mg DAILY PO Last administered on 07/31/16 09:56 ; Admin Dose 500 MG; Start 07/26/16 at 09:00 Metoprolol Tartrate (Lopressor) 25 mg BID PO Last administered on 07/31/16 09: 56; Admin Dose 25 MG; Start 07/28/16 at 21:00 Hydralazine HCl (Apresoline) 10 mg Q4H PRN IV ELEVATED BLOOD PRESSURE Last administered on 07/29/16 14:50; Admin Dose 10 MG; Start 07/28/16 at 20:30 Citric Acid/ Sodium Citrate (Bicitra) 15 ml BID PO Last administered on 09:52; Admin Dose 15 ML; Start 07/29/16 at 21:00 Nifedipine (Procardia Xl) 30 mg BID PO Last administered on 07/31/16 12:35; Admin Dose 30 MG; Start 07/31/16 at 13:00 JUANA AYALA MD Jul 31, 2016 21:47
[2016-07-31] MEDS: LATANOPROST 0.005% 2.5 ML OPH BOTH EYES SCH (21:52)
[2016-07-31] MEDS: EPOETIN 3000 UNITS/1 ML INJ (ESRD) SC SCH (21:54)
[2016-07-31 22:30] VITALS: BP 142/76; PULSE 68; RESP 18
[2016-07-31 23:00] VITALS: BP 143/72; PULSE 67; RESP 18
[2016-08-01] MEDS: VANCOMYCIN HCL 250 MG/5ML POSYG PO SCH ×4 (00:24→18:43)
[2016-08-01 05:47] LABS: ADD SCAN DIFF NO
[2016-08-01 06:14] LABS: BASOPHILS % 0.2 % (0.0-2.0); EOSINOPHILS # 0.5 10^3/ul (0.0-0.5); EOSINOPHILS % 4.4 % (0.0-7.0); HEMATOCRIT 29.5 % (42.0-52.0); HEMOGLOBIN 9.8 g/dl (14.0-18.0); LYMPHOCYTES # 1.5 10^3/ul (0.8-2.9); MEAN CORPUSCULAR HEMOGLOBIN 29.5 pg (29.0-33.0); MEAN CORPUSCULAR HGB CONC 33.2 g/dl (32.0-37.0); MEAN CORPUSCULAR VOLUME 88.9 fl (82.0-101.0); MEAN PLATELET VOLUME 8.9 fl (7.4-10.4); MONOCYTE # 0.4 10^3/ul (0.3-0.9); MONOCYTES % 3.8 % (0.0-11.0); NEUTROPHIL # 8.8 10^3/ul (1.6-7.5); PLATELET COUNT 102 10^3/UL (140-415); RED BLOOD COUNT 3.32 10^6/ul (4.70-6.10); RED CELL DISTRIBUTION WIDTH 14.9 % (11.5-14.5); WHITE BLOOD COUNT 11.2 10^3/ul (4.8-10.8)
[2016-08-01] MEDS: metroNIDAZOLE 500 MG/NS (PMX) 100 ML IVPB SCH ×3 (06:23→21:24)
[2016-08-01 08:25] VITALS: BP 169/86; RESP 18
[2016-08-01] MEDS: FINASTERIDE 5 MG TAB PO SCH (08:39)
[2016-08-01] MEDS: LACTOBACILLUS RHAMNOSUS CAP PO SCH ×2 (08:39→21:13)
[2016-08-01] MEDS: ASPIRIN 81 MG TAB PO SCH (08:39)
[2016-08-01] MEDS: CITRIC ACID/SODIUM CITRATE 15 ML CUP PO SCH ×2 (08:39→21:15)
[2016-08-01] MEDS: LINEZOLID 600 MG/D5W (PMX) 300 ML IVPB SCH (08:39)
[2016-08-01] MEDS: BISACODYL (EC) 5 MG TAB PO SCH ×2 (08:39→21:14)
[2016-08-01] MEDS: NIFEdipine (XL) 30 MG TAB PO SCH ×2 (08:40→21:16)
[2016-08-01] MEDS: PANTOPRAZOLE (EC) 40 MG TAB PO SCH (08:40)
[2016-08-01] MEDS: ZINC SULFATE 220 MG CAP PO SCH (08:40)
[2016-08-01] MEDS: BENAZEPRIL 20 MG TAB PO SCH (08:40)
[2016-08-01] MEDS: ASCORBIC ACID 500 MG TAB PO SCH (08:41)
[2016-08-01] MEDS: METOPROLOL 25 MG TAB PO SCH ×2 (08:41→21:17)
[2016-08-01] MEDS: CALCIUM CARBONATE 750 MG CHEW TAB PO SCH ×3 (08:42→18:21)
[2016-08-01] MEDS: COLLAGENASE 30 GM TUBE TOP SCH (08:42)
[2016-08-01] MEDS: MULTIVITAMINS THERAPEUTIC TAB PO SCH (08:42)
[2016-08-01] MEDS: BENZTROPINE 1 MG TAB PO SCH ×2 (08:50→21:16)
--- NOTE | 2016-08-01 15:35 | CONS ---
Date/Time of Note Date/Time of Note DATE: 08/01/16 TIME: 15:34 Assessment/Plan Assessment/Plan Chief Complaint/Hosp Course - early sepsis due to wound infection and C diff colitis - leukocytosis improving - infection of wounds of b/l heel due to MRSA, enterococcus sp and corynebacter jeikeium (grp JK); XR showed no bony abnormalities - treated with linezolid (07/18-08/01/16) - unstageable decub of b/l heel - C diff colitis - resolving - s/p possible HCAP, Pt completed empiric cefepime (07/10/2016-07/19/2016); CXR on 07/20/2016 showed improvement. 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 Henderson Problems: Consultation Date/Type/Reason Admit Date/Time July 09, 2016 at 12:24 Initial Consult Date 07/11/16 Type of Consultation: Infectious Disease Referring Provider: RONNIE PATEL MD 24 HR Interval Summary Free Text/Dictation Pt went to MRI. DPM is NOT recommending surgery/debridement. No acute issues per d/w nursing staff. Exam/Review of Systems Vital Signs Vitals Vital Signs Date Time Temp Pulse Resp B/P Pulse Ox O2 Delivery O2 Flow Rate FiO2 08/01/16 08:25 97.7 65 18 169/86 96 07/30/16 15:43 21 07/30/16 08:00 Nasal Cannula 07/30/16 04:35 2.0 Intake and Output 07/31/16 07/31/16 08/01/16 15:00 23:00 07:00 Intake Total 400 ml 760 ml 170 ml Output Total 850 ml 920 ml Balance 400 ml -90 ml -750 ml Exam Unable to do physical exam as pt is not in room Results Result Diagram: 08/01/16 0515 07/31/16 0515 Results 24 hrs Laboratory Tests Test 07/31/16 16:15 08/01/16 05:15 Prothrombin Time 16.6 H Prothrombin Time Ratio 1.3 INR International Normalized Ratio 1.33 Activated Partial Thromboplast Time 33.4 White Blood Count 11.2 H Red Blood Count 3.32 L Hemoglobin 9.8 L Hematocrit 29.5 L Mean Corpuscular Volume 88.9 Mean Corpuscular Hemoglobin 29.5 Mean Corpuscular Hemoglobin Concent 33.2 Red Cell Distribution Width 14.9 H Platelet Count 102 #L Mean Platelet Volume 8.9 Neutrophils % 78.0 H Lymphocytes % 13.0 L Monocytes % 3.8 Eosinophils % 4.4 Basophils % 0.2 Nucleated Red Blood Cells % 0.0 Neutrophils # 8.8 H Lymphocytes # 1.5 Monocytes # 0.4 Eosinophils # 0.5 Basophils # 0.0 Nucleated Red Blood Cells # 0.0 Medications Medications Current Medications Acetaminophen (Tylenol Tab) 500 mg Q6H PRN PO PAIN AND OR ELEVATED TEMP; Start 07/09/16 at 20:30 Ondansetron HCl (Zofran Inj) 4 mg Q6H PRN IV NAUSEA AND/OR VOMITING; Start at 20:30 Aspirin (Aspirin) 81 mg DAILY PO Last administered on 08/01/16 08:39; Admin Dose 81 MG; Start 07/10/16 at 09:00 Benztropine Mesylate (Cogentin) 1 mg BID PO Last administered on 08/01/16 08: 50; Admin Dose 1 MG; Start 07/09/16 at 21:00 Finasteride (Proscar) 5 mg DAILY PO Last administered on 08/01/16 08:39; Admin Dose 5 MG; Start 07/10/16 at 09:00 Acetaminophen/ Hydrocodone Bitart ([place] (5/325)) 1 tab Q4 PRN PO SEVERE PAIN LEVEL 7-10 Last administered on 07/15/16 16:21; Admin Dose 1 TAB; Start at 20:30 Latanoprost (Xalatan) 1 drop QHS BOTH EYES Last administered on 07/31/16 21:52 ; Admin Dose 1 DROP; Start 07/09/16 at 21:00 Multivitamins Therapeutic (Theragran) 1 tab DAILY PO Last administered on 08:42; Admin Dose 1 TAB; Start 07/10/16 at 09:00 Olanzapine (Zyprexa) 5 mg QHS PO Last administered on 07/31/16 21:42; Admin Dose 5 MG; Start 07/09/16 at 21:00 Zinc Sulfate (Zinc Sulfate) 220 mg DAILY PO Last administered on 08/01/16 08: 40; Admin Dose 220 MG; Start 07/10/16 at 09:00 Acetaminophen (Tylenol Supp) 650 mg Q6H PRN OR ELEVATED TEMPERATURE Last administered on 07/10/16 09:51; Admin Dose 650 MG; Start 07/10/16 at 09:30 Collagenase (Santyl) 1 applic DAILY TOP Last administered on 08/01/16 08:42; Admin Dose 1 APPLIC; Start 07/10/16 at 14:00 Bisacodyl (Dulcolax) 10 mg BID PO Last administered on 08/01/16 08:39; Admin Dose 10 MG; Start 07/13/16 at 15:00 Benazepril HCl (Lotensin) 20 mg DAILY PO Last administered on 08/01/16 08:40; Admin Dose 20 MG; Start 07/16/16 at 09:00 Zolpidem Tartrate (Ambien) 2.5 mg HS PRN PO INSOMNIA; Start 07/17/16 at 19:00 Epoetin Zana (Epogen (Esrd)) 6,000 units TuThSa@17 SC Last administered on 07/31 21:54; Admin Dose 6,000 UNITS; Start 07/17/16 at 20:00 Miscellaneous Information This patient ellis... PRN PRN XX WOUND CARE; Start at 07:00 Linezolid (Zyvox 600mg/D5W (Pmx)) 300 ml @ 300 mls/hr Q12 IVPB Last administered on 08/01/16 08:39; Admin Dose 300 MLS/HR; Start 07/18/16 at 11:00 Lorazepam (Ativan) 0.5 mg Q6H PRN PO ANXEITY Last administered on 07/19/16 22: 28; Admin Dose 0.5 MG; Start 07/18/16 at 16:00 Clonidine (Catapres) 0.1 mg TID PO Last administered on 08/01/16 12:21; Admin Dose 0.1 MG; Start 07/19/16 at 09:00 Vancomycin HCl 125 mg 125 mg Q6 PO Last administered on 08/01/16 12:21; Admin Dose 125 MG; Start 07/21/16 at 19:00 Metronidazole (Flagyl 500 Mg (Pmx)) 100 ml @ 100 mls/hr Q8 IVPB Last administered on 08/01/16 14:41; Admin Dose 100 MLS/HR; Start 07/22/16 at 16:30 Lactobacillus Acidophilus/ Rhamnosus (Culturelle) 1 cap BID PO Last administered on 08/01/16 08:39; Admin Dose 1 CAP; Start 07/23/16 at 21:00 Ascorbic Acid (Vitamin C) 500 mg DAILY PO Last administered on 08/01/16 08:41 ; Admin Dose 500 MG; Start 07/26/16 at 09:00 Metoprolol Tartrate (Lopressor) 25 mg BID PO Last administered on 08/01/16 08: 41; Admin Dose 25 MG; Start 07/28/16 at 21:00 Hydralazine HCl (Apresoline) 10 mg Q4H PRN IV ELEVATED BLOOD PRESSURE Last administered on 07/29/16 14:50; Admin Dose 10 MG; Start 07/28/16 at 20:30 Citric Acid/ Sodium Citrate (Bicitra) 15 ml BID PO Last administered on 08:39; Admin Dose 15 ML; Start 07/29/16 at 21:00 Nifedipine (Procardia Xl) 30 mg BID PO Last administered on 08/01/16 08:40; Admin Dose 30 MG; Start 07/31/16 at 13:00 WADE PINK NP Aug 01, 2016 15:35 WADE PINK NP Aug 01, 2016 15:35
--- NOTE | 2016-08-01 17:00 | CONS ---
Date/Time of Note Date/Time of Note DATE: 08/01/16 TIME: 16:59 Assessment/Plan Assessment/Plan Additional Assessment/Plan 1. Acute kidney injury, Pre- Renal R/o ATN, [place] no signs of obstructive Uropathy, Hx of BPH.- Non Oliguric, Resolvd 2. Hypertension. Normotensive at this time. 3. Chronic obstructive pulmonary disease. 4. Benign prostatic hypertrophy. 5. Loculated pleural effusion. 6. Multiple decubiti 7. Cerebrovascular accident. 8. Dyslipidemia. 9. Dementia with behavioral disturbance. 10. Metabolic Acidosis-stable 11. Hyponatremia 12. CKD Stage IV Renal function is stable Pt is non oliguric, Cont current Rx and plan Bicitra BID Repeat labs in am No acute indication for HD at this time Consultation Date/Type/Reason Admit Date/Time July 09, 2016 at 12:24 Type of Consultation: Renal Reason for Consultation SRAVANTHI Referring Provider: RONNIE PATEL MD 24 HR Interval Summary Free Text/Dictation No new complaints Exam/Review of Systems Vital Signs Vitals Vital Signs Date Time Temp Pulse Resp B/P Pulse Ox O2 Delivery O2 Flow Rate FiO2 08/01/16 08:25 97.7 65 18 169/86 96 07/30/16 15:43 21 07/30/16 08:00 Nasal Cannula 07/30/16 04:35 2.0 Intake and Output 07/31/16 07/31/16 08/01/16 15:00 23:00 07:00 Intake Total 400 ml 760 ml 170 ml Output Total 850 ml 920 ml Balance 400 ml -90 ml -750 ml Exam Constitutional: No distress ENMT: mucosa pink and moist Respiratory: crackles/rales, No diminished breath sounds, No labored breathing Cardiovascular: regular rate and rhythm, No edema Gastrointestinal: non-tender, soft Neurological: No lethargic Skin: No diaphoresis Results Result Diagram: 08/01/16 0515 07/31/16 0515 Results 24 hrs Laboratory Tests Test 08/01/16 05:15 White Blood Count 11.2 H Red Blood Count 3.32 L Hemoglobin 9.8 L Hematocrit 29.5 L Mean Corpuscular Volume 88.9 Mean Corpuscular Hemoglobin 29.5 Mean Corpuscular Hemoglobin Concent 33.2 Red Cell Distribution Width 14.9 H Platelet Count 102 #L Mean Platelet Volume 8.9 Neutrophils % 78.0 H Lymphocytes % 13.0 L Monocytes % 3.8 Eosinophils % 4.4 Basophils % 0.2 Nucleated Red Blood Cells % 0.0 Neutrophils # 8.8 H Lymphocytes # 1.5 Monocytes # 0.4 Eosinophils # 0.5 Basophils # 0.0 Nucleated Red Blood Cells # 0.0 Medications Medications Current Medications Acetaminophen (Tylenol Tab) 500 mg Q6H PRN PO PAIN AND OR ELEVATED TEMP; Start 07/09/16 at 20:30 Ondansetron HCl (Zofran Inj) 4 mg Q6H PRN IV NAUSEA AND/OR VOMITING; Start at 20:30 Aspirin (Aspirin) 81 mg DAILY PO Last administered on 08/01/16 08:39; Admin Dose 81 MG; Start 07/10/16 at 09:00 Benztropine Mesylate (Cogentin) 1 mg BID PO Last administered on 08/01/16 08: 50; Admin Dose 1 MG; Start 07/09/16 at 21:00 Finasteride (Proscar) 5 mg DAILY PO Last administered on 08/01/16 08:39; Admin Dose 5 MG; Start 07/10/16 at 09:00 Acetaminophen/ Hydrocodone Bitart ([place] (5/325)) 1 tab Q4 PRN PO SEVERE PAIN LEVEL 7-10 Last administered on 07/15/16 16:21; Admin Dose 1 TAB; Start at 20:30 Latanoprost (Xalatan) 1 drop QHS BOTH EYES Last administered on 07/31/16 21:52 ; Admin Dose 1 DROP; Start 07/09/16 at 21:00 Multivitamins Therapeutic (Theragran) 1 tab DAILY PO Last administered on 08:42; Admin Dose 1 TAB; Start 07/10/16 at 09:00 Olanzapine (Zyprexa) 5 mg QHS PO Last administered on 07/31/16 21:42; Admin Dose 5 MG; Start 07/09/16 at 21:00 Zinc Sulfate (Zinc Sulfate) 220 mg DAILY PO Last administered on 08/01/16 08: 40; Admin Dose 220 MG; Start 07/10/16 at 09:00 Acetaminophen (Tylenol Supp) 650 mg Q6H PRN [place] ELEVATED TEMPERATURE Last administered on 07/10/16 09:51; Admin Dose 650 MG; Start 07/10/16 at 09:30 Collagenase (Santyl) 1 applic DAILY TOP Last administered on 08/01/16 08:42; Admin Dose 1 APPLIC; Start 07/10/16 at 14:00 Bisacodyl (Dulcolax) 10 mg BID PO Last administered on 08/01/16 08:39; Admin Dose 10 MG; Start 07/13/16 at 15:00 Benazepril HCl (Lotensin) 20 mg DAILY PO Last administered on 08/01/16 08:40; Admin Dose 20 MG; Start 07/16/16 at 09:00 Zolpidem Tartrate (Ambien) 2.5 mg HS PRN PO INSOMNIA; Start 07/17/16 at 19:00 Epoetin Zana (Epogen (Esrd)) 6,000 units TuThSa@17 SC Last administered on 07/31 21:54; Admin Dose 6,000 UNITS; Start 07/17/16 at 20:00 Miscellaneous Information This patient ellis... PRN PRN XX WOUND CARE; Start at 07:00 Linezolid (Zyvox 600mg/D5W (Pmx)) 300 ml @ 300 mls/hr Q12 IVPB Last administered on 08/01/16 08:39; Admin Dose 300 MLS/HR; Start 07/18/16 at 11:00 Lorazepam (Ativan) 0.5 mg Q6H PRN PO ANXEITY Last administered on 07/19/16 22: 28; Admin Dose 0.5 MG; Start 07/18/16 at 16:00 Clonidine (Catapres) 0.1 mg TID PO Last administered on 08/01/16 12:21; Admin Dose 0.1 MG; Start 07/19/16 at 09:00 Vancomycin HCl 125 mg 125 mg Q6 PO Last administered on 08/01/16 12:21; Admin Dose 125 MG; Start 07/21/16 at 19:00 Metronidazole (Flagyl 500 Mg (Pmx)) 100 ml @ 100 mls/hr Q8 IVPB Last administered on 08/01/16 14:41; Admin Dose 100 MLS/HR; Start 07/22/16 at 16:30 Lactobacillus Acidophilus/ Rhamnosus (Culturelle) 1 cap BID PO Last administered on 08/01/16 08:39; Admin Dose 1 CAP; Start 07/23/16 at 21:00 Ascorbic Acid (Vitamin C) 500 mg DAILY PO Last administered on 08/01/16 08:41 ; Admin Dose 500 MG; Start 07/26/16 at 09:00 Metoprolol Tartrate (Lopressor) 25 mg BID PO Last administered on 08/01/16 08: 41; Admin Dose 25 MG; Start 07/28/16 at 21:00 Hydralazine HCl (Apresoline) 10 mg Q4H PRN IV ELEVATED BLOOD PRESSURE Last administered on 07/29/16 14:50; Admin Dose 10 MG; Start 07/28/16 at 20:30 Citric Acid/ Sodium Citrate (Bicitra) 15 ml BID PO Last administered on 08:39; Admin Dose 15 ML; Start 07/29/16 at 21:00 Nifedipine (Procardia Xl) 30 mg BID PO Last administered on 08/01/16 08:40; Admin Dose 30 MG; Start 07/31/16 at 13:00 TACOS GREEN MD Aug 01, 2016 17:00
--- NOTE | 2016-08-01 17:55 | CONS ---
Date/Time of Note Date/Time of Note DATE: 08/01/16 TIME: 17:52 Assessment/Plan Assessment/Plan Chief Complaint/Hosp Course IMPRESSION: 1. Preoperative evaluation prior to debridement of heel decubitus ulcers.- negative trop x 3/NL EF by echo this admit with no sig contraindicated valve lesions. Ok to proceed to OR on BB continue pre-post op without further non- invasive eval at moderate risk 2. Hypertension-uncontrolled 3. Abnormal electrocardiogram with anteroseptal Q's and normal ejection fraction by echo this admit. 4. Clostridium difficile Colitis. 5. Renal failure. 6. Encephalopathy. 7. Chronic obstructive pulmonary disease. 8. History of cerebrovascular accident. 9. Dyslipidemia. 10. Dementia. 11. Anemia. 12. Leukocytosis. 12. Coagulopathy. Recc: -Continue asa -Continue abx's and f/u cx data -local wound care -Continue current BB/ACEI -Contiue procardia XL with further slight uptitration to improve SBP control -Continue clonidine -Follow volume status closely Problems: Consultation Date/Type/Reason Admit Date/Time July 09, 2016 at 12:24 Initial Consult Date 07/26/16 Type of Consultation: Cardiology Reason for Consultation Pre-op Referring Provider: RONNIE PATEL MD Exam/Review of Systems Vital Signs Vitals Vital Signs Date Time Temp Pulse Resp B/P Pulse Ox O2 Delivery O2 Flow Rate FiO2 08/01/16 08:25 97.7 65 18 169/86 96 07/30/16 15:43 21 07/30/16 08:00 Nasal Cannula 07/30/16 04:35 2.0 Intake and Output 07/31/16 07/31/16 08/01/16 15:00 23:00 07:00 Intake Total 400 ml 760 ml 170 ml Output Total 850 ml 920 ml Balance 400 ml -90 ml -750 ml Exam Review of Systems: CONSTITUTIONAL: No fevers, chills. PULMONARY: No sob CARDIOVASCULAR: No chest pain/palpitations GASTROINTESTINAL: No nausea/vomiting. GENITOURINARY: No hematuria/dysuria. MUSCULOSKELETAL: No myagias/arthalgias. PSYCHIATRIC: The patient denies depression. NEUROLOGIC: No weakness Constitutional: alert Psych: no complaints Head: normocephalic ENMT: mucosa pink and moist Neck: jvd, supple Respiratory: diminished breath sounds Cardiovascular: regular rate and rhythm Gastrointestinal: soft Musculoskeletal: muscle tone Extremities: edema (none) Neurological: other (no focal deficits) Results Result Diagram: 08/01/1615 07/31/1615 Results 24 hrs Laboratory Tests Test 08/01/16 05:15 White Blood Count 11.2 H Red Blood Count 3.32 L Hemoglobin 9.8 L Hematocrit 29.5 L Mean Corpuscular Volume 88.9 Mean Corpuscular Hemoglobin 29.5 Mean Corpuscular Hemoglobin Concent 33.2 Red Cell Distribution Width 14.9 H Platelet Count 102 #L Mean Platelet Volume 8.9 Neutrophils % 78.0 H Lymphocytes % 13.0 L Monocytes % 3.8 Eosinophils % 4.4 Basophils % 0.2 Nucleated Red Blood Cells % 0.0 Neutrophils # 8.8 H Lymphocytes # 1.5 Monocytes # 0.4 Eosinophils # 0.5 Basophils # 0.0 Nucleated Red Blood Cells # 0.0 Medications Medications Current Medications Acetaminophen (Tylenol Tab) 500 mg Q6H PRN PO PAIN AND OR ELEVATED TEMP; Start 07/09/16 at 20:30 Ondansetron HCl (Zofran Inj) 4 mg Q6H PRN IV NAUSEA AND/OR VOMITING; Start at 20:30 Aspirin (Aspirin) 81 mg DAILY PO Last administered on 08/01/16 08:39; Admin Dose 81 MG; Start 07/10/16 at 09:00 Benztropine Mesylate (Cogentin) 1 mg BID PO Last administered on 08/01/16 08: 50; Admin Dose 1 MG; Start 07/09/16 at 21:00 Finasteride (Proscar) 5 mg DAILY PO Last administered on 08/01/16 08:39; Admin Dose 5 MG; Start 07/10/16 at 09:00 Acetaminophen/ Hydrocodone Bitart ([place] (5/325)) 1 tab Q4 PRN PO SEVERE PAIN LEVEL 7-10 Last administered on 07/15/16 16:21; Admin Dose 1 TAB; Start at 20:30 Latanoprost (Xalatan) 1 drop QHS BOTH EYES Last administered on 07/31/16 21:52 ; Admin Dose 1 DROP; Start 07/09/16 at 21:00 Multivitamins Therapeutic (Theragran) 1 tab DAILY PO Last administered on 08:42; Admin Dose 1 TAB; Start 07/10/16 at 09:00 Olanzapine (Zyprexa) 5 mg QHS PO Last administered on 07/31/16 21:42; Admin Dose 5 MG; Start 07/09/16 at 21:00 Zinc Sulfate (Zinc Sulfate) 220 mg DAILY PO Last administered on 08/01/16 08: 40; Admin Dose 220 MG; Start 07/10/16 at 09:00 Acetaminophen (Tylenol Supp) 650 mg Q6H PRN [place] ELEVATED TEMPERATURE Last administered on 07/10/16 09:51; Admin Dose 650 MG; Start 07/10/16 at 09:30 Collagenase (Santyl) 1 applic DAILY TOP Last administered on 08/01/16 08:42; Admin Dose 1 APPLIC; Start 07/10/16 at 14:00 Bisacodyl (Dulcolax) 10 mg BID PO Last administered on 08/01/16 08:39; Admin Dose 10 MG; Start 07/13/16 at 15:00 Benazepril HCl (Lotensin) 20 mg DAILY PO Last administered on 08/01/16 08:40; Admin Dose 20 MG; Start 07/16/16 at 09:00 Zolpidem Tartrate (Ambien) 2.5 mg HS PRN PO INSOMNIA; Start 07/17/16 at 19:00 Epoetin Zana (Epogen (Esrd)) 6,000 units TuThSa@17 SC Last administered on 07/31 21:54; Admin Dose 6,000 UNITS; Start 07/17/16 at 20:00 Miscellaneous Information (Pending Santyl Order For Wound Care) This patient ellis... PRN PRN XX WOUND CARE; Start 07/18/16 at 07:00 Lorazepam (Ativan) 0.5 mg Q6H PRN PO ANXEITY Last administered on 07/19/16 22: 28; Admin Dose 0.5 MG; Start 07/18/16 at 16:00 Clonidine (Catapres) 0.1 mg TID PO Last administered on 08/01/16 12:21; Admin Dose 0.1 MG; Start 07/19/16 at 09:00 Vancomycin HCl 125 mg 125 mg Q6 PO Last administered on 08/01/16 12:21; Admin Dose 125 MG; Start 07/21/16 at 19:00 Metronidazole (Flagyl 500 Mg (Pmx)) 100 ml @ 100 mls/hr Q8 IVPB Last administered on 08/01/16 14:41; Admin Dose 100 MLS/HR; Start 07/22/16 at 16:30 Lactobacillus Acidophilus/ Rhamnosus (Culturelle) 1 cap BID PO Last administered on 08/01/16 08:39; Admin Dose 1 CAP; Start 07/23/16 at 21:00 Ascorbic Acid (Vitamin C) 500 mg DAILY PO Last administered on 08/01/16 08:41 ; Admin Dose 500 MG; Start 07/26/16 at 09:00 Metoprolol Tartrate (Lopressor) 25 mg BID PO Last administered on 08/01/16 08: 41; Admin Dose 25 MG; Start 07/28/16 at 21:00 Hydralazine HCl (Apresoline) 10 mg Q4H PRN IV ELEVATED BLOOD PRESSURE Last administered on 07/29/16 14:50; Admin Dose 10 MG; Start 07/28/16 at 20:30 Citric Acid/ Sodium Citrate (Bicitra) 15 ml BID PO Last administered on 08:39; Admin Dose 15 ML; Start 07/29/16 at 21:00; Stop 08/02/16 at 16:58 Nifedipine (Procardia Xl) 30 mg BID PO Last administered on 08/01/16 08:40; Admin Dose 30 MG; Start 07/31/16 at 13:00 PACHECO COHEN Aug 01, 2016 17:55
--- NOTE | 2016-08-01 18:10 | PN ---
Date/Time of Note Date/Time of Note DATE: 08/01/16 TIME: 18:07 Assessment/Plan VTE Prophylaxis VTE Prophylaxis Intervention: SCD's Lines/Catheters IV [facility]from [facility] Saline Lock Urinary Cath still in place: Yes Reason Cath still needed: urinary retention Assessment/Plan Chief Complaint/Hosp Course Patient was episodes of elevated blood pressure started on Procardia, remains afebrile, lethargic but easily arousable, no acute events per RN. Assessment/Plan - Bilateral heel wounds, patient is evaluated by Dr. Bell in podiatry consultation with recommendation of continue current wound care and not to proceed with debridement. - C. difficile colitis. Dr. Henderson is following an infection disease consultation. Continue oral vancomycin and intravenous metronidazole. - Colitis ulcers per colonoscopy, continue to follow-up gastroenterology recommendations. - Infected wounds on bilateral lower extremities. Continue antibiotics per ID. - Acute kidney injury on chronic kidney disease stage III. Dr. Srinivasan is following in nephrology consultation. - Acute metabolic encephalopathy, resolving. - Hypertension. Continue clonidine, Procardia and benazepril - Chronic obstructive pulmonary disease. Continue DuoNeb. - Benign prostatic hypertrophy. Continue Flomax. - Multiple decubitus ulcers present on admission. Continue local wound care, offloading. - Acute cerebrovascular accident. Continue aspirin. - Dyslipidemia. Continue Lipitor. - Dementia with behavioral disturbance. Continue Zyprexa. Further recommendations based on clinical course. Plan of care discussed with Dr. Rene. Problems: Exam/Review of Systems Vital Signs Vitals Vital Signs Date Time Temp Pulse Resp B/P Pulse Ox O2 Delivery O2 Flow Rate FiO2 08/01/16 08:25 97.7 65 18 169/86 96 07/30/16 15:43 21 07/30/16 08:00 Nasal Cannula 07/30/16 04:35 2.0 Intake and Output 07/31/16 07/31/16 08/01/16 15:00 23:00 07:00 Intake Total 400 ml 760 ml 170 ml Output Total 850 ml 920 ml Balance 400 ml -90 ml -750 ml Exam Constitutional: alert, frail Psych: confusion Head: normocephalic Neck: supple Respiratory: normal air movement Cardiovascular: nl pulses Gastrointestinal: non-tender, soft Genitourinary - Male: other (Avila catheter) Extremities: edema Skin: other (Multiple wounds) Results Result Diagram: 08/01/16 0515 07/31/16 0515 Results 24 hrs Laboratory Tests Test 08/01/16 05:15 White Blood Count 11.2 H Red Blood Count 3.32 L Hemoglobin 9.8 L Hematocrit 29.5 L Mean Corpuscular Volume 88.9 Mean Corpuscular Hemoglobin 29.5 Mean Corpuscular Hemoglobin Concent 33.2 Red Cell Distribution Width 14.9 H Platelet Count 102 #L Mean Platelet Volume 8.9 Neutrophils % 78.0 H Lymphocytes % 13.0 L Monocytes % 3.8 Eosinophils % 4.4 Basophils % 0.2 Nucleated Red Blood Cells % 0.0 Neutrophils # 8.8 H Lymphocytes # 1.5 Monocytes # 0.4 Eosinophils # 0.5 Basophils # 0.0 Nucleated Red Blood Cells # 0.0 Medications Medications Current Medications Acetaminophen (Tylenol Tab) 500 mg Q6H PRN PO PAIN AND OR ELEVATED TEMP; Start 07/09/16 at 20:30 Ondansetron HCl (Zofran Inj) 4 mg Q6H PRN IV NAUSEA AND/OR VOMITING; Start at 20:30 Aspirin (Aspirin) 81 mg DAILY PO Last administered on 08/01/16 08:39; Admin Dose 81 MG; Start 07/10/16 at 09:00 Benztropine Mesylate (Cogentin) 1 mg BID PO Last administered on 08/01/16 08: 50; Admin Dose 1 MG; Start 07/09/16 at 21:00 Finasteride (Proscar) 5 mg DAILY PO Last administered on 08/01/16 08:39; Admin Dose 5 MG; Start 07/10/16 at 09:00 Acetaminophen/ Hydrocodone Bitart ([place] (5/325)) 1 tab Q4 PRN PO SEVERE PAIN LEVEL 7-10 Last administered on 07/15/16 16:21; Admin Dose 1 TAB; Start at 20:30 Latanoprost (Xalatan) 1 drop QHS BOTH EYES Last administered on 07/31/16 21:52 ; Admin Dose 1 DROP; Start 07/09/16 at 21:00 Multivitamins Therapeutic (Theragran) 1 tab DAILY PO Last administered on 08:42; Admin Dose 1 TAB; Start 07/10/16 at 09:00 Olanzapine (Zyprexa) 5 mg QHS PO Last administered on 07/31/16 21:42; Admin Dose 5 MG; Start 07/09/16 at 21:00 Zinc Sulfate (Zinc Sulfate) 220 mg DAILY PO Last administered on 08/01/16 08: 40; Admin Dose 220 MG; Start 07/10/16 at 09:00 Acetaminophen (Tylenol Supp) 650 mg Q6H PRN [place] ELEVATED TEMPERATURE Last administered on 07/10/16 09:51; Admin Dose 650 MG; Start 07/10/16 at 09:30 Collagenase (Santyl) 1 applic DAILY TOP Last administered on 08/01/16 08:42; Admin Dose 1 APPLIC; Start 07/10/16 at 14:00 Bisacodyl (Dulcolax) 10 mg BID PO Last administered on 08/01/16 08:39; Admin Dose 10 MG; Start 07/13/16 at 15:00 Benazepril HCl (Lotensin) 20 mg DAILY PO Last administered on 08/01/16 08:40; Admin Dose 20 MG; Start 07/16/16 at 09:00 Zolpidem Tartrate (Ambien) 2.5 mg HS PRN PO INSOMNIA; Start 07/17/16 at 19:00 Epoetin Zana (Epogen (Esrd)) 6,000 units TuThSa@17 SC Last administered on 07/31 21:54; Admin Dose 6,000 UNITS; Start 07/17/16 at 20:00 Miscellaneous Information (Pending Santyl Order For Wound Care) This patient ellis... PRN PRN XX WOUND CARE; Start 07/18/16 at 07:00 Lorazepam (Ativan) 0.5 mg Q6H PRN PO ANXEITY Last administered on 07/19/16 22: 28; Admin Dose 0.5 MG; Start 07/18/16 at 16:00 Clonidine (Catapres) 0.1 mg TID PO Last administered on 08/01/16 12:21; Admin Dose 0.1 MG; Start 07/19/16 at 09:00 Vancomycin HCl 125 mg 125 mg Q6 PO Last administered on 08/01/16 12:21; Admin Dose 125 MG; Start 07/21/16 at 19:00 Metronidazole (Flagyl 500 Mg (Pmx)) 100 ml @ 100 mls/hr Q8 IVPB Last administered on 08/01/16 14:41; Admin Dose 100 MLS/HR; Start 07/22/16 at 16:30 Lactobacillus Acidophilus/ Rhamnosus (Culturelle) 1 cap BID PO Last administered on 08/01/16 08:39; Admin Dose 1 CAP; Start 07/23/16 at 21:00 Ascorbic Acid (Vitamin C) 500 mg DAILY PO Last administered on 08/01/16 08:41 ; Admin Dose 500 MG; Start 07/26/16 at 09:00 Metoprolol Tartrate (Lopressor) 25 mg BID PO Last administered on 08/01/16 08: 41; Admin Dose 25 MG; Start 07/28/16 at 21:00 Hydralazine HCl (Apresoline) 10 mg Q4H PRN IV ELEVATED BLOOD PRESSURE Last administered on 07/29/16 14:50; Admin Dose 10 MG; Start 07/28/16 at 20:30 Citric Acid/ Sodium Citrate (Bicitra) 15 ml BID PO Last administered on 08:39; Admin Dose 15 ML; Start 07/29/16 at 21:00; Stop 08/02/16 at 16:58 Nifedipine (Procardia Xl) 60 mg QAM PO ; Start 08/02/16 at 09:00; Status UNV Nifedipine (Procardia Xl) 30 mg QHS PO ; Start 08/01/16 at 21:00; Status UNV ALE MCCONNELL Aug 01, 2016 18:10
[2016-08-01 19:40] VITALS: BP 158/72; RESP 21
[2016-08-01] MEDS: OLANZAPINE 5 MG TAB PO SCH (21:14)
[2016-08-01] MEDS: LATANOPROST 0.005% 2.5 ML OPH BOTH EYES SCH (21:23)
[2016-08-02] MEDS: VANCOMYCIN HCL 250 MG/5ML POSYG PO SCH ×5 (01:31→23:28)
[2016-08-02] MEDS: metroNIDAZOLE 500 MG/NS (PMX) 100 ML IVPB SCH ×3 (05:56→21:02)
[2016-08-02 06:06] LABS: ADD SCAN DIFF NO
[2016-08-02 06:23] LABS: ABNORMAL IP MESSAGE 1; BASOPHILS % 0.2 % (0.0-2.0); EOSINOPHILS # 0.6 10^3/ul (0.0-0.5); EOSINOPHILS % 5.2 % (0.0-7.0); HEMATOCRIT 27.7 % (42.0-52.0); HEMOGLOBIN 9.1 g/dl (14.0-18.0); LYMPHOCYTES # 1.6 10^3/ul (0.8-2.9); LYMPHOCYTES % 14.4 % (15.0-51.0); MEAN CORPUSCULAR HEMOGLOBIN 29.5 pg (29.0-33.0); MEAN CORPUSCULAR HGB CONC 32.9 g/dl (32.0-37.0); MEAN CORPUSCULAR VOLUME 89.9 fl (82.0-101.0); MEAN PLATELET VOLUME 9.8 fl (7.4-10.4); MONOCYTE # 0.4 10^3/ul (0.3-0.9); MONOCYTES % 3.4 % (0.0-11.0); NEUTROPHIL # 8.3 10^3/ul (1.6-7.5); NEUTROPHILS % 76.3 % (39.0-77.0); PLATELET COUNT 85 10^3/UL (140-415); RED BLOOD COUNT 3.08 10^6/ul (4.70-6.10); RED CELL DISTRIBUTION WIDTH 15.1 % (11.5-14.5); WHITE BLOOD COUNT 10.8 10^3/ul (4.8-10.8)
[2016-08-02 07:10] LABS: CALCIUM 7.6 mg/dl (8.4-10.2); CREATININE 3.16 mg/dl (0.61-1.24); POTASSIUM 3.4 mmol/L (3.5-5.1)
[2016-08-02 07:47] VITALS: BP 160/72; RESP 18
[2016-08-02] MEDS: CALCIUM CARBONATE 750 MG CHEW TAB PO SCH ×3 (10:12→17:12)
[2016-08-02] MEDS: ASPIRIN 81 MG TAB PO SCH (10:13)
[2016-08-02] MEDS: MULTIVITAMINS THERAPEUTIC TAB PO SCH (10:13)
[2016-08-02] MEDS: LACTOBACILLUS RHAMNOSUS CAP PO SCH ×2 (10:13→20:58)
[2016-08-02] MEDS: BENZTROPINE 1 MG TAB PO SCH ×2 (10:13→20:59)
[2016-08-02] MEDS: FINASTERIDE 5 MG TAB PO SCH (10:13)
[2016-08-02] MEDS: BENAZEPRIL 20 MG TAB PO SCH (10:14)
[2016-08-02] MEDS: METOPROLOL 25 MG TAB PO SCH ×2 (10:14→20:58)
[2016-08-02] MEDS: NIFEdipine (XL) 30 MG TAB PO SCH ×2 (10:15→20:58)
[2016-08-02] MEDS: PANTOPRAZOLE (EC) 40 MG TAB PO SCH (10:15)
[2016-08-02] MEDS: ZINC SULFATE 220 MG CAP PO SCH (10:15)
[2016-08-02] MEDS: ASCORBIC ACID 500 MG TAB PO SCH (10:15)
[2016-08-02] MEDS: BISACODYL (EC) 5 MG TAB PO SCH ×2 (10:15→20:57)
[2016-08-02] MEDS: CITRIC ACID/SODIUM CITRATE 15 ML CUP PO SCH ×2 (10:16→20:57)
[2016-08-02] MEDS: COLLAGENASE 30 GM TUBE TOP SCH (10:16)
--- NOTE | 2016-08-02 10:37 | RADRPT ---
PROCEDURE: MRI OF THE RIGHT ANKLE. CLINICAL INDICATION: Possible osteomyelitis of the right calcaneus. TECHNIQUE: Multiple MR pulse sequences in multiple planes were obtained. Images were interpreted on high-resolution PACS system. COMPARISON: Radiographs from 07/15/2016 FINDINGS: There is a skin is continues wound superficial to the posterior calcaneal margin seen on the axial sequence image 9 noting subcutaneous edema and skin thicker margins compatible with cellulitis. No larger drainable fluid collection is present. There is mild, nonspecific tenosynovitis of the flexo r tendons. No evidence for tendon rupture. No drainable fluid collections are present. There is abnormal T1 bone marrow signal infiltration and cortical irregularity at the posterior aspe ct of the calcaneus with bone marrow edema. There are no bone marrow edema lies between the Achilles insertion and plantar fascia origin. The abnormal bone marrow signal measures up to 8 mm by calcane al cortex anteriorly. This is consistent with osteomyelitis. Bone marrow signal elsewhere at the h ind foot is normal. IMPRESSION: 1. Large skin subcutaneous wound at the posterior aspect of the calcaneus and surrounding findings of cellulitis. No large drainable fluid collection is seen. 2. Evidence of early osteomyelitis at the posterior calcaneal margin. RPTAT: [facility]U .Mitchell Barbosa MD, MD Date Time Electronically viewed and signed by .Mitchell Barbosa MD, MD on 08/02/2016 10:37 .d/
--- NOTE | 2016-08-02 10:45 | RADRPT ---
PROCEDURE: MRI OF THE LEFT ANKLE. CLINICAL INDICATION: Possible osteomyelitis of the left calcaneus. TECHNIQUE: Multiple MR pulse sequences in multiple planes were obtained. Images were interpreted on high-resolution PACS system. COMPARISON: Radiographs from 07/15/2016 FINDINGS: There is a skin and subcutaneous wound superficial to the posterior calcaneal margin seen on the ax ial sequence image 9 noting subcutaneous edema and skin thicker margins compatible with cellulitis. No larger drainable fluid collection is present. There is mild, nonspecific tenosynovitis of the f lexor tendons. No evidence for tendon rupture. No drainable fluid collections are present. There is abnormal T1 bone marrow signal infiltration and cortical irregularity at the posterior aspe ct of the calcaneus with bone marrow edema. There area of bone marrow edema lies between the Firestone s insertion and plantar fascia origin. The abnormal bone marrow signal measures up to 7mm by calcane al cortex anteriorly. This is consistent with osteomyelitis. Bone marrow signal elsewhere at the h ind foot is normal. IMPRESSION: 1. Moderate sized skin subcutaneous wound at the posterior aspect of the calcaneus and surrounding f indings of cellulitis. No large drainable fluid collection is seen. The findings are somewhat less p ronounced than on the contralateral foot. 2. Evidence of early osteomyelitis at the posterior calcaneal margin. RPTAT: UU .Mitchell Barbosa MD, MD Date Time Electronically viewed and signed by .Mitchell Barbosa MD, MD on 08/02/2016 10:44 .d/
--- NOTE | 2016-08-02 14:12 | PN ---
Date/Time of Note Date/Time of Note DATE: 08/02/16 TIME: 14:09 Assessment/Plan VTE Prophylaxis VTE Prophylaxis Intervention: other Lines/Catheters IV C[facility]ter Type (from [facility]): Saline Lock Urinary Cath still in place: Yes Assessment/Plan Assessment/Plan - Bilateral heel wounds, patient is evaluated by Dr. Bell in podiatry consultation with recommendation of continue current wound care and not to proceed with debridement. - C. difficile colitis. Dr. Henderson is following an infection disease consultation. Continue oral vancomycin and intravenous metronidazole. - Colitis ulcers per colonoscopy, continue to follow-up gastroenterology recommendations. - Infected wounds on bilateral lower extremities. Continue antibiotics per ID. - Acute kidney injury on chronic kidney disease stage III. Dr. Srinivasan is following in nephrology consultation. - Acute metabolic encephalopathy, resolving. - Hypertension. Continue clonidine, Procardia and benazepril - Chronic obstructive pulmonary disease. Continue DuoNeb. - Benign prostatic hypertrophy. Continue Flomax. - Multiple decubitus ulcers present on admission. Continue local wound care, offloading. - Acute cerebrovascular accident. Continue aspirin. - Dyslipidemia. Continue Lipitor. - Dementia with behavioral disturbance. Continue Zyprexa. Further recommendations based on clinical course. Plan of care discussed with Dr. Rene. Subjective 24 Hr Interval Summary Eyes: no complaints ENT: no complaints Respiratory: no complaints Cardiovascular: no complaints Gastrointestinal: no complaints Exam/Review of Systems Vital Signs Vitals Vital Signs Date Time Temp Pulse Resp B/P Pulse Ox O2 Delivery O2 Flow Rate FiO2 08/02/16 07:47 98.7 67 18 160/72 91 08/01/16 20:00 Nasal Cannula 2.0 07/30/16 15:43 21 Intake and Output 08/01/16 08/01/16 08/02/16 15:00 23:00 07:00 Intake Total 100 ml 950 ml Output Total 750 ml 850 ml Balance 100 ml 200 ml -850 ml Exam Constitutional: alert, oriented Eyes: EOMI ENMT: nl external ears & nose Respiratory: clear to auscultation, normal air movement Cardiovascular: nl pulses, regular rate and rhythm Gastrointestinal: non-tender, soft Musculoskeletal: nl extremities to inspection Extremities: normal pulses Neurological: nl speech, other (oriented to name ) Results Result Diagram: 08/02/16 0530 08/02/16 0530 Results 24 hrs Laboratory Tests Test 08/02/16 05:30 White Blood Count 10.8 Red Blood Count 3.08 L Hemoglobin 9.1 L Hematocrit 27.7 L Mean Corpuscular Volume 89.9 Mean Corpuscular Hemoglobin 29.5 Mean Corpuscular Hemoglobin Concent 32.9 Red Cell Distribution Width 15.1 H Platelet Count 85 L Mean Platelet Volume 9.8 Neutrophils % 76.3 Lymphocytes % 14.4 L Monocytes % 3.4 Eosinophils % 5.2 Basophils % 0.2 Nucleated Red Blood Cells % 0.0 Neutrophils # 8.3 H Lymphocytes # 1.6 Monocytes # 0.4 Eosinophils # 0.6 H Basophils # 0.0 Nucleated Red Blood Cells # 0.0 Sodium Level 145 H Potassium Level 3.4 L Chloride Level 117 H Carbon Dioxide Level 19 L Anion Gap 12 Blood Urea Nitrogen 58 H Creatinine 3.16 H Glucose Level 78 Calcium Level 7.6 L Medications Medications Current Medications Acetaminophen (Tylenol Tab) 500 mg Q6H PRN PO PAIN AND OR ELEVATED TEMP; Start 07/09/16 at 20:30 Ondansetron HCl (Zofran Inj) 4 mg Q6H PRN IV NAUSEA AND/OR VOMITING; Start at 20:30 Aspirin (Aspirin) 81 mg DAILY PO Last administered on 08/02/16 10:13; Admin Dose 81 MG; Start 07/10/16 at 09:00 Benztropine Mesylate (Cogentin) 1 mg BID PO Last administered on 08/02/16 10: 13; Admin Dose 1 MG; Start 07/09/16 at 21:00 Finasteride (Proscar) 5 mg DAILY PO Last administered on 08/02/16 10:13; Admin Dose 5 MG; Start 07/10/16 at 09:00 Acetaminophen/ Hydrocodone Bitart ([place] (5/325)) 1 tab Q4 PRN PO SEVERE PAIN LEVEL 7-10 Last administered on 07/15/16 16:21; Admin Dose 1 TAB; Start at 20:30 Latanoprost (Xalatan) 1 drop QHS BOTH EYES Last administered on 08/01/16 21:23 ; Admin Dose 1 DROP; Start 07/09/16 at 21:00 Multivitamins Therapeutic (Theragran) 1 tab DAILY PO Last administered on 10:13; Admin Dose 1 TAB; Start 07/10/16 at 09:00 Olanzapine (Zyprexa) 5 mg QHS PO Last administered on 08/01/16 21:14; Admin Dose 5 MG; Start 07/09/16 at 21:00 Zinc Sulfate (Zinc Sulfate) 220 mg DAILY PO Last administered on 08/02/16 10: 15; Admin Dose 220 MG; Start 07/10/16 at 09:00 Acetaminophen (Tylenol Supp) 650 mg Q6H PRN [place] ELEVATED TEMPERATURE Last administered on 07/10/16 09:51; Admin Dose 650 MG; Start 07/10/16 at 09:30 Collagenase (Santyl) 1 applic DAILY TOP Last administered on 08/02/16 10:16; Admin Dose 1 APPLIC; Start 07/10/16 at 14:00 Bisacodyl (Dulcolax) 10 mg BID PO Last administered on 08/02/16 10:15; Admin Dose 10 MG; Start 07/13/16 at 15:00 Benazepril HCl (Lotensin) 20 mg DAILY PO Last administered on 08/02/16 10:14; Admin Dose 20 MG; Start 07/16/16 at 09:00 Zolpidem Tartrate (Ambien) 2.5 mg HS PRN PO INSOMNIA; Start 07/17/16 at 19:00 Epoetin Zana (Epogen (Esrd)) 6,000 units TuThSa@17 SC Last administered on 07/31 21:54; Admin Dose 6,000 UNITS; Start 07/17/16 at 20:00 Miscellaneous Information (Pending Santyl Order For Wound Care) This patient ellis... PRN PRN XX WOUND CARE; Start 07/18/16 at 07:00 Lorazepam (Ativan) 0.5 mg Q6H PRN PO ANXEITY Last administered on 07/19/16 22: 28; Admin Dose 0.5 MG; Start 07/18/16 at 16:00 Clonidine (Catapres) 0.1 mg TID PO Last administered on 08/02/16 10:15; Admin Dose 0.1 MG; Start 07/19/16 at 09:00 Vancomycin HCl 125 mg 125 mg Q6 PO Last administered on 08/02/16 05:56; Admin Dose 125 MG; Start 07/21/16 at 19:00 Metronidazole (Flagyl 500 Mg (Pmx)) 100 ml @ 100 mls/hr Q8 IVPB Last administered on 08/02/16 05:56; Admin Dose 100 MLS/HR; Start 07/22/16 at 16:30 Lactobacillus Acidophilus/ Rhamnosus (Culturelle) 1 cap BID PO Last administered on 08/02/16 10:13; Admin Dose 1 CAP; Start 07/23/16 at 21:00 Ascorbic Acid (Vitamin C) 500 mg DAILY PO Last administered on 08/02/16 10:15 ; Admin Dose 500 MG; Start 07/26/16 at 09:00 Metoprolol Tartrate (Lopressor) 25 mg BID PO Last administered on 08/02/16 10: 14; Admin Dose 25 MG; Start 07/28/16 at 21:00 Hydralazine HCl (Apresoline) 10 mg Q4H PRN IV ELEVATED BLOOD PRESSURE Last administered on 07/29/16 14:50; Admin Dose 10 MG; Start 07/28/16 at 20:30 Citric Acid/ Sodium Citrate (Bicitra) 15 ml BID PO Last administered on 10:16; Admin Dose 15 ML; Start 07/29/16 at 21:00; Stop 08/02/16 at 16:58 Nifedipine (Procardia Xl) 60 mg QAM PO Last administered on 08/02/16 10:15; Admin Dose 60 MG; Start 08/02/16 at 09:00 Nifedipine (Procardia Xl) 30 mg QHS PO Last administered on 08/01/16 21:16; Admin Dose 30 MG; Start 08/01/16 at 21:00 ISAEL CRYSTAL Aug 02, 2016 14:12
--- NOTE | 2016-08-02 14:22 | CONS ---
Date/Time of Note Date/Time of Note DATE: 08/02/16 TIME: 14:19 Assessment/Plan Assessment/Plan Chief Complaint/Hosp Course Serial labs continue to show stable renal fn Hct has improved prob with blood Tx carried out on 07/28 Problems: Consultation Date/Type/Reason Admit Date/Time July 09, 2016 at 12:24 Initial Consult Date 07/11/16 Type of Consultation: renal Referring Provider: RONNIE PATEL MD 24 HR Interval Summary Free Text/Dictation Pt still confused Being fed tho pt is coughing as he eats. Exam/Review of Systems Vital Signs Vitals Vital Signs Date Time Temp Pulse Resp B/P Pulse Ox O2 Delivery O2 Flow Rate FiO2 08/02/16 07:47 98.7 67 18 160/72 91 08/01/16 20:00 Nasal Cannula 2.0 07/30/16 15:43 21 Intake and Output 08/01/16 08/01/16 08/02/16 15:00 23:00 07:00 Intake Total 100 ml 950 ml Output Total 750 ml 850 ml Balance 100 ml 200 ml -850 ml Exam Constitutional: alert, oriented, well developed Psych: nl mood/affect, no complaints Head: atraumatic, normocephalic Eyes: EOMI, PERRL, nl conjunctiva, nl lids, nl sclera ENMT: nl external ears & nose, nl lips & teeth, nl nasal mucosa & septum Neck: non-tender, supple Respiratory: clear to auscultation, normal air movement Cardiovascular: nl pulses, regular rate and rhythm Gastrointestinal: nl liver, spleen, non-tender, soft Genitourinary - Male: other (tellez in place) Musculoskeletal: nl extremities to inspection, nl gait and stance, other ( muscle weakness) Extremities: normal pulses Neurological: [employer] SAL[employer] MA[employer]GEMENT [employer]IST[employer] II-XII intact, nl mental status, nl speech, nl strength Skin: nl turgor, No rash or lesions Lymph: nl lymph nodes Results WBC finally has normailized, UA much clear Renal fn no paz Renal tierney stable at present Awaiting further plans per PMD Result Diagram: 08/02/16 0530 08/02/16 0530 Results 24 hrs Laboratory Tests Test 08/02/16 05:30 White Blood Count 10.8 Red Blood Count 3.08 L Hemoglobin 9.1 L Hematocrit 27.7 L Mean Corpuscular Volume 89.9 Mean Corpuscular Hemoglobin 29.5 Mean Corpuscular Hemoglobin Concent 32.9 Red Cell Distribution Width 15.1 H Platelet Count 85 L Mean Platelet Volume 9.8 Neutrophils % 76.3 Lymphocytes % 14.4 L Monocytes % 3.4 Eosinophils % 5.2 Basophils % 0.2 Nucleated Red Blood Cells % 0.0 Neutrophils # 8.3 H Lymphocytes # 1.6 Monocytes # 0.4 Eosinophils # 0.6 H Basophils # 0.0 Nucleated Red Blood Cells # 0.0 Sodium Level 145 H Potassium Level 3.4 L Chloride Level 117 H Carbon Dioxide Level 19 L Anion Gap 12 Blood Urea Nitrogen 58 H Creatinine 3.16 H Glucose Level 78 Calcium Level 7.6 L Medications Medications Current Medications Acetaminophen (Tylenol Tab) 500 mg Q6H PRN PO PAIN AND OR ELEVATED TEMP; Start 07/09/16 at 20:30 Ondansetron HCl (Zofran Inj) 4 mg Q6H PRN IV NAUSEA AND/OR VOMITING; Start at 20:30 Aspirin (Aspirin) 81 mg DAILY PO Last administered on 08/02/16 10:13; Admin Dose 81 MG; Start 07/10/16 at 09:00 Benztropine Mesylate (Cogentin) 1 mg BID PO Last administered on 08/02/16 10: 13; Admin Dose 1 MG; Start 07/09/16 at 21:00 Finasteride (Proscar) 5 mg DAILY PO Last administered on 08/02/16 10:13; Admin Dose 5 MG; Start 07/10/16 at 09:00 Acetaminophen/ Hydrocodone Bitart ([place] (5/325)) 1 tab Q4 PRN PO SEVERE PAIN LEVEL 7-10 Last administered on 07/15/16 16:21; Admin Dose 1 TAB; Start at 20:30 Latanoprost (Xalatan) 1 drop QHS BOTH EYES Last administered on 08/01/16 21:23 ; Admin Dose 1 DROP; Start 07/09/16 at 21:00 Multivitamins Therapeutic (Theragran) 1 tab DAILY PO Last administered on 10:13; Admin Dose 1 TAB; Start 07/10/16 at 09:00 Olanzapine (Zyprexa) 5 mg QHS PO Last administered on 08/01/16 21:14; Admin Dose 5 MG; Start 07/09/16 at 21:00 Zinc Sulfate (Zinc Sulfate) 220 mg DAILY PO Last administered on 08/02/16 10: 15; Admin Dose 220 MG; Start 07/10/16 at 09:00 Acetaminophen (Tylenol Supp) 650 mg Q6H PRN [place] ELEVATED TEMPERATURE Last administered on 07/10/16 09:51; Admin Dose 650 MG; Start 07/10/16 at 09:30 Collagenase (Santyl) 1 applic DAILY TOP Last administered on 08/02/16 10:16; Admin Dose 1 APPLIC; Start 07/10/16 at 14:00 Bisacodyl (Dulcolax) 10 mg BID PO Last administered on 08/02/16 10:15; Admin Dose 10 MG; Start 07/13/16 at 15:00 Benazepril HCl (Lotensin) 20 mg DAILY PO Last administered on 08/02/16 10:14; Admin Dose 20 MG; Start 07/16/16 at 09:00 Zolpidem Tartrate (Ambien) 2.5 mg HS PRN PO INSOMNIA; Start 07/17/16 at 19:00 Epoetin Zana (Epogen (Esrd)) 6,000 units TuThSa@17 SC Last administered on 07/31 21:54; Admin Dose 6,000 UNITS; Start 07/17/16 at 20:00 Miscellaneous Information (Pending Santyl Order For Wound Care) This patient ellis... PRN PRN XX WOUND CARE; Start 07/18/16 at 07:00 Lorazepam (Ativan) 0.5 mg Q6H PRN PO ANXEITY Last administered on 07/19/16 22: 28; Admin Dose 0.5 MG; Start 07/18/16 at 16:00 Clonidine (Catapres) 0.1 mg TID PO Last administered on 08/02/16 10:15; Admin Dose 0.1 MG; Start 07/19/16 at 09:00 Vancomycin HCl 125 mg 125 mg Q6 PO Last administered on 08/02/16 05:56; Admin Dose 125 MG; Start 07/21/16 at 19:00 Metronidazole (Flagyl 500 Mg (Pmx)) 100 ml @ 100 mls/hr Q8 IVPB Last administered on 08/02/16 14:10; Admin Dose 100 MLS/HR; Start 07/22/16 at 16:30 Lactobacillus Acidophilus/ Rhamnosus (Culturelle) 1 cap BID PO Last administered on 08/02/16 10:13; Admin Dose 1 CAP; Start 07/23/16 at 21:00 Ascorbic Acid (Vitamin C) 500 mg DAILY PO Last administered on 08/02/16 10:15 ; Admin Dose 500 MG; Start 07/26/16 at 09:00 Metoprolol Tartrate (Lopressor) 25 mg BID PO Last administered on 08/02/16 10: 14; Admin Dose 25 MG; Start 07/28/16 at 21:00 Hydralazine HCl (Apresoline) 10 mg Q4H PRN IV ELEVATED BLOOD PRESSURE Last administered on 07/29/16 14:50; Admin Dose 10 MG; Start 07/28/16 at 20:30 Citric Acid/ Sodium Citrate (Bicitra) 15 ml BID PO Last administered on 10:16; Admin Dose 15 ML; Start 07/29/16 at 21:00; Stop 08/02/16 at 16:58 Nifedipine (Procardia Xl) 60 mg QAM PO Last administered on 08/02/16 10:15; Admin Dose 60 MG; Start 08/02/16 at 09:00 Nifedipine (Procardia Xl) 30 mg QHS PO Last administered on 08/01/16 21:16; Admin Dose 30 MG; Start 08/01/16 at 21:00 JUANA AYALA MD Aug 02, 2016 14:22
--- NOTE | 2016-08-02 15:24 | CONS ---
Date/Time of Note Date/Time of Note DATE: 08/02/16 TIME: 15:20 Assessment/Plan Assessment/Plan Additional Assessment/Plan Debridement of heel decubitus ulcers Hypertension Abnormal electrocardiogram Clostridium difficile Colitis. Renal failure. Encephalopathy. Chronic obstructive pulmonary disease. CVA Dyslipidemia. Dementia. Anemia. Continue Metoprolol Continue Procardia Continue Clonidine Continue Benazepril Continue Wound care Continue antibiotics Continue flagyl continue Epogen Consultation Date/Type/Reason Admit Date/Time July 09, 2016 at 12:24 Constitutional: disoriented, improved, no complaints Eyes: no complaints ENT: no complaints Respiratory: no complaints Cardiovascular: no complaints Gastrointestinal: no complaints Genitourinary: no complaints Musculoskeletal: no complaints Skin: other Neurologic: confusion, no complaints Endocrine: no complaints Lymphatic: no complaints Psychological: nl mood/affect, no complaints Immunologic: no complaints Past Medical History Medical History: hypertension, other (COPD) Past Surgical History Past Surgical Hx: other Social History Alcohol Use: none Smoking Status: Never smoker Drug Use: none Exam/Review of Systems Vital Signs Vitals Vital Signs Date Time Temp Pulse Resp B/P Pulse Ox O2 Delivery O2 Flow Rate FiO2 08/02/16 07:47 98.7 67 18 160/72 91 08/01/16 20:00 Nasal Cannula 2.0 07/30/16 15:43 21 Intake and Output 08/01/16 08/01/16 08/02/16 15:00 23:00 07:00 Intake Total 100 ml 950 ml Output Total 750 ml 850 ml Balance 100 ml 200 ml -850 ml Exam Constitutional: alert Head: atraumatic, normocephalic Neck: non-tender, supple Respiratory: clear to auscultation Cardiovascular: regular rate and rhythm Gastrointestinal: nl liver, spleen, non-tender, soft Results Result Diagram: 08/02/16 0530 08/02/16 0530 Results 24 hrs Laboratory Tests Test 08/02/16 05:30 White Blood Count 10.8 Red Blood Count 3.08 L Hemoglobin 9.1 L Hematocrit 27.7 L Mean Corpuscular Volume 89.9 Mean Corpuscular Hemoglobin 29.5 Mean Corpuscular Hemoglobin Concent 32.9 Red Cell Distribution Width 15.1 H Platelet Count 85 L Mean Platelet Volume 9.8 Neutrophils % 76.3 Lymphocytes % 14.4 L Monocytes % 3.4 Eosinophils % 5.2 Basophils % 0.2 Nucleated Red Blood Cells % 0.0 Neutrophils # 8.3 H Lymphocytes # 1.6 Monocytes # 0.4 Eosinophils # 0.6 H Basophils # 0.0 Nucleated Red Blood Cells # 0.0 Sodium Level 145 H Potassium Level 3.4 L Chloride Level 117 H Carbon Dioxide Level 19 L Anion Gap 12 Blood Urea Nitrogen 58 H Creatinine 3.16 H Glucose Level 78 Calcium Level 7.6 L Medications Medications Current Medications Acetaminophen (Tylenol Tab) 500 mg Q6H PRN PO PAIN AND OR ELEVATED TEMP; Start 07/09/16 at 20:30 Ondansetron HCl (Zofran Inj) 4 mg Q6H PRN IV NAUSEA AND/OR VOMITING; Start at 20:30 Aspirin (Aspirin) 81 mg DAILY PO Last administered on 08/02/16 10:13; Admin Dose 81 MG; Start 07/10/16 at 09:00 Benztropine Mesylate (Cogentin) 1 mg BID PO Last administered on 08/02/16 10: 13; Admin Dose 1 MG; Start 07/09/16 at 21:00 Finasteride (Proscar) 5 mg DAILY PO Last administered on 08/02/16 10:13; Admin Dose 5 MG; Start 07/10/16 at 09:00 Acetaminophen/ Hydrocodone Bitart ([place] (5/325)) 1 tab Q4 PRN PO SEVERE PAIN LEVEL 7-10 Last administered on 07/15/16 16:21; Admin Dose 1 TAB; Start at 20:30 Latanoprost (Xalatan) 1 drop QHS BOTH EYES Last administered on 08/01/16 21:23 ; Admin Dose 1 DROP; Start 07/09/16 at 21:00 Multivitamins Therapeutic (Theragran) 1 tab DAILY PO Last administered on 10:13; Admin Dose 1 TAB; Start 07/10/16 at 09:00 Olanzapine (Zyprexa) 5 mg QHS PO Last administered on 08/01/16 21:14; Admin Dose 5 MG; Start 07/09/16 at 21:00 Zinc Sulfate (Zinc Sulfate) 220 mg DAILY PO Last administered on 08/02/16 10: 15; Admin Dose 220 MG; Start 07/10/16 at 09:00 Acetaminophen (Tylenol Supp) 650 mg Q6H PRN [place] ELEVATED TEMPERATURE Last administered on 07/10/16 09:51; Admin Dose 650 MG; Start 07/10/16 at 09:30 Collagenase (Santyl) 1 applic DAILY TOP Last administered on 08/02/16 10:16; Admin Dose 1 APPLIC; Start 07/10/16 at 14:00 Bisacodyl (Dulcolax) 10 mg BID PO Last administered on 08/02/16 10:15; Admin Dose 10 MG; Start 07/13/16 at 15:00 Benazepril HCl (Lotensin) 20 mg DAILY PO Last administered on 08/02/16 10:14; Admin Dose 20 MG; Start 07/16/16 at 09:00 Zolpidem Tartrate (Ambien) 2.5 mg HS PRN PO INSOMNIA; Start 07/17/16 at 19:00 Epoetin Zana (Epogen (Esrd)) 6,000 units TuThSa@17 SC Last administered on 07/31 21:54; Admin Dose 6,000 UNITS; Start 07/17/16 at 20:00 Miscellaneous Information (Pending Santyl Order For Wound Care) This patient ellis... PRN PRN XX WOUND CARE; Start 07/18/16 at 07:00 Lorazepam (Ativan) 0.5 mg Q6H PRN PO ANXEITY Last administered on 07/19/16 22: 28; Admin Dose 0.5 MG; Start 07/18/16 at 16:00 Clonidine (Catapres) 0.1 mg TID PO Last administered on 08/02/16 10:15; Admin Dose 0.1 MG; Start 07/19/16 at 09:00 Vancomycin HCl 125 mg 125 mg Q6 PO Last administered on 08/02/16 14:20; Admin Dose 125 MG; Start 07/21/16 at 19:00 Metronidazole (Flagyl 500 Mg (Pmx)) 100 ml @ 100 mls/hr Q8 IVPB Last administered on 08/02/16 14:10; Admin Dose 100 MLS/HR; Start 07/22/16 at 16:30 Lactobacillus Acidophilus/ Rhamnosus (Culturelle) 1 cap BID PO Last administered on 08/02/16 10:13; Admin Dose 1 CAP; Start 07/23/16 at 21:00 Ascorbic Acid (Vitamin C) 500 mg DAILY PO Last administered on 08/02/16 10:15 ; Admin Dose 500 MG; Start 07/26/16 at 09:00 Metoprolol Tartrate (Lopressor) 25 mg BID PO Last administered on 08/02/16 10: 14; Admin Dose 25 MG; Start 07/28/16 at 21:00 Hydralazine HCl (Apresoline) 10 mg Q4H PRN IV ELEVATED BLOOD PRESSURE Last administered on 07/29/16 14:50; Admin Dose 10 MG; Start 07/28/16 at 20:30 Citric Acid/ Sodium Citrate (Bicitra) 15 ml BID PO Last administered on 10:16; Admin Dose 15 ML; Start 07/29/16 at 21:00; Stop 08/02/16 at 16:58 Nifedipine (Procardia Xl) 60 mg QAM PO Last administered on 08/02/16 10:15; Admin Dose 60 MG; Start 08/02/16 at 09:00 Nifedipine (Procardia Xl) 30 mg QHS PO Last administered on 08/01/16 21:16; Admin Dose 30 MG; Start 08/01/16 at 21:00 DIAMOND REED M.D. Aug 02, 2016 15:24
[2016-08-02] MEDS: EPOETIN 3000 UNITS/1 ML INJ (ESRD) SC SCH (17:12)
[2016-08-02 20:12] VITALS: BP 133/77; RESP 20
[2016-08-02 20:55] VITALS: BP 168/80; PULSE 83
[2016-08-02] MEDS: OLANZAPINE 5 MG TAB PO SCH (20:57)
[2016-08-02] MEDS: LATANOPROST 0.005% 2.5 ML OPH BOTH EYES SCH (21:10)
--- NOTE | 2016-08-02 21:23 | CONS ---
Date/Time of Note Date/Time of Note DATE: 08/02/16 TIME: 21:19 Assessment/Plan Assessment/Plan Chief Complaint/Hosp Course - early sepsis due to wound infection and C diff colitis - infection of wounds of b/l heel due to MRSA, enterococcus sp and corynebacter jeikeium (grp JK); MRI showed early osteomyelitis at b/l posterior calcaneal margin. - unstageable decub of b/l heel - C diff colitis - resolving - s/p possible HCAP, Pt completed empiric cefepime (07/10/2016-07/19/2016); CXR on 07/20/2016 showed improvement. 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 It requires total 6 weeks of IV antibiotic. - Pt has h/o ATN, and thrombocytopenia probably due to linezolid. Therefore, I recommend renally dosed daptomycin, plan to complete the remaining course of treatment, through 08/25/2016 (Pt received IV vancomycin, then linezolid before) . Check CK - continue PO vancomycin (07/15/2016-) and IV Flagyl (07/22/2016-) management d/w Pt's RN Problems: Consultation Date/Type/Reason Admit Date/Time July 09, 2016 at 12:24 Initial Consult Date 07/11/16 Type of Consultation: ID Referring Provider: RONNIE PATEL MD 24 HR Interval Summary Subjective hx not possible: other (demented and confused) Exam/Review of Systems Vital Signs Vitals Vital Signs Date Time Temp Pulse Resp B/P Pulse Ox O2 Delivery O2 Flow Rate FiO2 08/02/16 20:12 98.5 84 20 133/77 94 08/01/16 20:00 Nasal Cannula 2.0 07/30/16 15:43 21 Intake and Output 08/01/16 08/01/16 08/02/16 15:00 23:00 07:00 Intake Total 100 ml 950 ml Output Total 750 ml 850 ml Balance 100 ml 200 ml -850 ml Exam Constitutional: frail Psych: confusion Head: normocephalic Eyes: nl conjunctiva, nl lids ENMT: nl external ears & nose, nl nasal mucosa & septum Respiratory: clear to auscultation, normal air movement Cardiovascular: nl pulses, regular rate and rhythm Gastrointestinal: other (Pt had flexed thighs and I could not examine) Musculoskeletal: joint tenderness (R heel is malodorous and TTP) Results Result Diagram: 08/02/16 0530 08/02/16 0530 Results 24 hrs Laboratory Tests Test 08/02/16 05:30 White Blood Count 10.8 Red Blood Count 3.08 L Hemoglobin 9.1 L Hematocrit 27.7 L Mean Corpuscular Volume 89.9 Mean Corpuscular Hemoglobin 29.5 Mean Corpuscular Hemoglobin Concent 32.9 Red Cell Distribution Width 15.1 H Platelet Count 85 L Mean Platelet Volume 9.8 Neutrophils % 76.3 Lymphocytes % 14.4 L Monocytes % 3.4 Eosinophils % 5.2 Basophils % 0.2 Nucleated Red Blood Cells % 0.0 Neutrophils # 8.3 H Lymphocytes # 1.6 Monocytes # 0.4 Eosinophils # 0.6 H Basophils # 0.0 Nucleated Red Blood Cells # 0.0 Sodium Level 145 H Potassium Level 3.4 L Chloride Level 117 H Carbon Dioxide Level 19 L Anion Gap 12 Blood Urea Nitrogen 58 H Creatinine 3.16 H Glucose Level 78 Calcium Level 7.6 L Medications Medications Current Medications Acetaminophen (Tylenol Tab) 500 mg Q6H PRN PO PAIN AND OR ELEVATED TEMP; Start 07/09/16 at 20:30 Ondansetron HCl (Zofran Inj) 4 mg Q6H PRN IV NAUSEA AND/OR VOMITING; Start at 20:30 Aspirin (Aspirin) 81 mg DAILY PO Last administered on 08/02/16 10:13; Admin Dose 81 MG; Start 07/10/16 at 09:00 Benztropine Mesylate (Cogentin) 1 mg BID PO Last administered on 08/02/16 20: 59; Admin Dose 1 MG; Start 07/09/16 at 21:00 Finasteride (Proscar) 5 mg DAILY PO Last administered on 08/02/16 10:13; Admin Dose 5 MG; Start 07/10/16 at 09:00 Acetaminophen/ Hydrocodone Bitart ([place] (5/325)) 1 tab Q4 PRN PO SEVERE PAIN LEVEL 7-10 Last administered on 07/15/16 16:21; Admin Dose 1 TAB; Start at 20:30 Latanoprost (Xalatan) 1 drop QHS BOTH EYES Last administered on 08/02/16 21:10 ; Admin Dose 1 DROP; Start 07/09/16 at 21:00 Multivitamins Therapeutic (Theragran) 1 tab DAILY PO Last administered on 10:13; Admin Dose 1 TAB; Start 07/10/16 at 09:00 Olanzapine (Zyprexa) 5 mg QHS PO Last administered on 08/02/16 20:57; Admin Dose 5 MG; Start 07/09/16 at 21:00 Zinc Sulfate (Zinc Sulfate) 220 mg DAILY PO Last administered on 08/02/16 10: 15; Admin Dose 220 MG; Start 07/10/16 at 09:00 Acetaminophen (Tylenol Supp) 650 mg Q6H PRN [place] ELEVATED TEMPERATURE Last administered on 07/10/16 09:51; Admin Dose 650 MG; Start 07/10/16 at 09:30 Collagenase (Santyl) 1 applic DAILY TOP Last administered on 08/02/16 10:16; Admin Dose 1 APPLIC; Start 07/10/16 at 14:00 Bisacodyl (Dulcolax) 10 mg BID PO Last administered on 08/02/16 20:57; Admin Dose 10 MG; Start 07/13/16 at 15:00 Benazepril HCl (Lotensin) 20 mg DAILY PO Last administered on 08/02/16 10:14; Admin Dose 20 MG; Start 07/16/16 at 09:00 Zolpidem Tartrate (Ambien) 2.5 mg HS PRN PO INSOMNIA; Start 07/17/16 at 19:00 Epoetin Zana (Epogen (Esrd)) 6,000 units TuThSa@17 SC Last administered on 08/02 17:12; Admin Dose 6,000 UNITS; Start 07/17/16 at 20:00 Miscellaneous Information (Pending Santyl Order For Wound Care) This patient ellis... PRN PRN XX WOUND CARE; Start 07/18/16 at 07:00 Lorazepam (Ativan) 0.5 mg Q6H PRN PO ANXEITY Last administered on 07/19/16 22: 28; Admin Dose 0.5 MG; Start 07/18/16 at 16:00 Clonidine (Catapres) 0.1 mg TID PO Last administered on 08/02/16 20:59; Admin Dose 0.1 MG; Start 07/19/16 at 09:00 Vancomycin HCl 125 mg 125 mg Q6 PO Last administered on 08/02/16 17:12; Admin Dose 125 MG; Start 07/21/16 at 19:00 Metronidazole (Flagyl 500 Mg (Pmx)) 100 ml @ 100 mls/hr Q8 IVPB Last administered on 08/02/16 21:02; Admin Dose 100 MLS/HR; Start 07/22/16 at 16:30 Lactobacillus Acidophilus/ Rhamnosus (Culturelle) 1 cap BID PO Last administered on 08/02/16 20:58; Admin Dose 1 CAP; Start 07/23/16 at 21:00 Ascorbic Acid (Vitamin C) 500 mg DAILY PO Last administered on 08/02/16 10:15 ; Admin Dose 500 MG; Start 07/26/16 at 09:00 Metoprolol Tartrate (Lopressor) 25 mg BID PO Last administered on 08/02/16 20: 58; Admin Dose 25 MG; Start 07/28/16 at 21:00 Hydralazine HCl (Apresoline) 10 mg Q4H PRN IV ELEVATED BLOOD PRESSURE Last administered on 07/29/16 14:50; Admin Dose 10 MG; Start 07/28/16 at 20:30 Nifedipine (Procardia Xl) 60 mg QAM PO Last administered on 08/02/16 10:15; Admin Dose 60 MG; Start 08/02/16 at 09:00 Nifedipine (Procardia Xl) 30 mg QHS PO Last administered on 08/02/16 20:58; Admin Dose 30 MG; Start 08/01/16 at 21:00 JERO GALAN M.D. Aug 02, 2016 21:23
[2016-08-02] MEDS: DAPTOMYCIN 470 MG in SOD CHLORIDE 0.9% 100 ML IVPB SCH (23:26)
[2016-08-03] MEDS: VANCOMYCIN HCL 250 MG/5ML POSYG PO SCH ×4 (05:32→23:24)
[2016-08-03] MEDS: metroNIDAZOLE 500 MG/NS (PMX) 100 ML IVPB SCH ×3 (05:32→21:47)
[2016-08-03 06:35] LABS: ADD SCAN DIFF NO
[2016-08-03 06:55] LABS: ABNORMAL IP MESSAGE 1; BASOPHILS % 0.2 % (0.0-2.0); EOSINOPHILS # 0.5 10^3/ul (0.0-0.5); EOSINOPHILS % 3.9 % (0.0-7.0); HEMATOCRIT 30.3 % (42.0-52.0); HEMOGLOBIN 10.1 g/dl (14.0-18.0); LYMPHOCYTES # 1.7 10^3/ul (0.8-2.9); LYMPHOCYTES % 14.1 % (15.0-51.0); MEAN CORPUSCULAR HEMOGLOBIN 29.6 pg (29.0-33.0); MEAN CORPUSCULAR HGB CONC 33.3 g/dl (32.0-37.0); MEAN CORPUSCULAR VOLUME 88.9 fl (82.0-101.0); MEAN PLATELET VOLUME 10.4 fl (7.4-10.4); MONOCYTE # 0.6 10^3/ul (0.3-0.9); MONOCYTES % 4.8 % (0.0-11.0); NEUTROPHIL # 9.4 10^3/ul (1.6-7.5); NEUTROPHILS % 76.6 % (39.0-77.0); PLATELET COUNT 95 10^3/UL (140-415); RED BLOOD COUNT 3.41 10^6/ul (4.70-6.10); RED CELL DISTRIBUTION WIDTH 15.1 % (11.5-14.5); WHITE BLOOD COUNT 12.2 10^3/ul (4.8-10.8)
[2016-08-03 06:57] LABS: CALCIUM 7.6 mg/dl (8.4-10.2); CREATININE 3.11 mg/dl (0.61-1.24)
[2016-08-03 08:40] VITALS: BP 177/82; RESP 18
[2016-08-03] MEDS: PANTOPRAZOLE (EC) 40 MG TAB PO SCH (09:43)
[2016-08-03] MEDS: CALCIUM CARBONATE 750 MG CHEW TAB PO SCH ×3 (09:44→18:15)
[2016-08-03] MEDS: BISACODYL (EC) 5 MG TAB PO SCH ×2 (09:44→21:46)
[2016-08-03] MEDS: LACTOBACILLUS RHAMNOSUS CAP PO SCH ×2 (09:44→21:45)
[2016-08-03] MEDS: ASPIRIN 81 MG TAB PO SCH (09:44)
[2016-08-03] MEDS: BENZTROPINE 1 MG TAB PO SCH ×2 (09:44→21:45)
[2016-08-03] MEDS: BENAZEPRIL 20 MG TAB PO SCH (09:45)
[2016-08-03] MEDS: METOPROLOL 25 MG TAB PO SCH ×2 (09:45→21:46)
[2016-08-03] MEDS: FINASTERIDE 5 MG TAB PO SCH (09:46)
[2016-08-03] MEDS: ZINC SULFATE 220 MG CAP PO SCH (09:46)
[2016-08-03] MEDS: NIFEdipine (XL) 30 MG TAB PO SCH ×2 (09:46→21:45)
[2016-08-03] MEDS: MULTIVITAMINS THERAPEUTIC TAB PO SCH (09:46)
[2016-08-03] MEDS: ASCORBIC ACID 500 MG TAB PO SCH (09:46)
[2016-08-03] MEDS: COLLAGENASE 30 GM TUBE TOP SCH (09:47)
--- NOTE | 2016-08-03 11:05 | CONS ---
[facility] HCIS Consult Follow up SOGERI Patient Name: Ronald Dove Unit Number: [id number] Date of : 1945 Patient Status: Admitted Inpatient Attending Doctor: Ronnie Patel MD Edit: JERO TIMMONS M.D. on 08/04/16 @ 10:54 I discussed the management with LING Murray and the following is our joint recommendations: - MRI from 08/01/2016 showed jenniffer osteomyelitis at b/l posterior calcaneal margin. It requires total 6 weeks of IV antibiotic: continue renally dosed daptomycin, plan to complete the remaining course of treatment, through 2016 (Pt received IV vancomycin, then linezolid before). CK=27 on 08/03/2016. Will repeat weekly - continue PO vancomycin (07/15/2016-) and IV Flagyl (07/22/2016-) Date/Time of Note Date/Time of Note DATE: 08/03/16 TIME: 10:41 Consult Date/Type/Reason Admit Date/Time July 09, 2016 at 12:24 Initial Consult Date 07/11/16 Type of Consultation: INFECTIOUS DISEASE Ordering Provider: RONNIE PATEL MD Subjective mumbling incoherently Nurse Jai reports no diarrhea yesterday and today Objective Vital Signs Date Time Temp Pulse Resp B/P Pulse Ox O2 Delivery O2 Flow Rate FiO2 08/03/16 08:40 98.5 85 18 177/82 90 08/02/16 20:00 Nasal Cannula 2.0 07/30/16 15:43 21 Intake and Output 08/02/16 08/02/16 08/03/16 15:00 23:00 07:00 Intake Total 200 ml 300 ml Output Total 1000 ml Balance 200 ml -700 ml Exam Constitutional: frail male lying in bed mumbling incoherently Psych: confused & disoriented X4 Head: normocephalic Eyes: normal conjunctiva and lids ENMT: moist mucous membranes Respiratory: clear to auscultation, normal air movement Cardiovascular: regular rate and rhythm, palpable pulses Gastrointestinal: soft, non-tender and non-distended Extremities: +4 pitting edema bilateral feet Skin: dressings intact on bilateral heels, no visible drainage Results/Medications Result Diagram: 08/03/16 0552 08/03/16 0552 Results 24 hrs Laboratory Tests Test 08/03/16 05:52 White Blood Count 12.2 H Red Blood Count 3.41 L Hemoglobin 10.1 L Hematocrit 30.3 L Mean Corpuscular Volume 88.9 Mean Corpuscular Hemoglobin 29.6 Mean Corpuscular Hemoglobin Concent 33.3 Red Cell Distribution Width 15.1 H Platelet Count 95 L Mean Platelet Volume 10.4 Neutrophils % 76.6 Lymphocytes % 14.1 L Monocytes % 4.8 Eosinophils % 3.9 Basophils % 0.2 Nucleated Red Blood Cells % 0.0 Neutrophils # 9.4 H Lymphocytes # 1.7 Monocytes # 0.6 Eosinophils # 0.5 Basophils # 0.0 Nucleated Red Blood Cells # 0.0 Sodium Level 146 H Potassium Level 3.0 L Chloride Level 117 H Carbon Dioxide Level 19 L Anion Gap 13 Blood Urea Nitrogen 57 H Creatinine 3.11 H Glucose Level 88 Calcium Level 7.6 L Creatine Kinase 27 08/01/16 MRI OF THE RIGHT ANKLE 1. Large skin subcutaneous wound at the posterior aspect of the calcaneus and surrounding findings of cellulitis. No large drainable fluid collection is seen. 2. Evidence of early osteomyelitis at the posterior calcaneal margin. Medications Current Medications Acetaminophen (Tylenol Tab) 500 mg Q6H PRN PO PAIN AND OR ELEVATED TEMP; Start 07/09/16 at 20:30 Ondansetron HCl (Zofran Inj) 4 mg Q6H PRN IV NAUSEA AND/OR VOMITING; Start at 20:30 Aspirin (Aspirin) 81 mg DAILY PO Last administered on 08/03/16 09:44; Admin Dose 81 MG; Start 07/10/16 at 09:00 Benztropine Mesylate (Cogentin) 1 mg BID PO Last administered on 08/03/16 09: 44; Admin Dose 1 MG; Start 07/09/16 at 21:00 Finasteride (Proscar) 5 mg DAILY PO Last administered on 08/03/16 09:46; Admin Dose 5 MG; Start 07/10/16 at 09:00 Acetaminophen/ Hydrocodone Bitart ([place] (5/325)) 1 tab Q4 PRN PO SEVERE PAIN LEVEL 7-10 Last administered on 07/15/16 16:21; Admin Dose 1 TAB; Start at 20:30 Latanoprost (Xalatan) 1 drop QHS BOTH EYES Last administered on 08/02/16 21:10 ; Admin Dose 1 DROP; Start 07/09/16 at 21:00 Multivitamins Therapeutic (Theragran) 1 tab DAILY PO Last administered on 09:46; Admin Dose 1 TAB; Start 07/10/16 at 09:00 Olanzapine (Zyprexa) 5 mg QHS PO Last administered on 08/02/16 20:57; Admin Dose 5 MG; Start 07/09/16 at 21:00 Zinc Sulfate (Zinc Sulfate) 220 mg DAILY PO Last administered on 08/03/16 09: 46; Admin Dose 220 MG; Start 07/10/16 at 09:00 Acetaminophen (Tylenol Supp) 650 mg Q6H PRN [place] ELEVATED TEMPERATURE Last administered on 07/10/16 09:51; Admin Dose 650 MG; Start 07/10/16 at 09:30 Collagenase (Santyl) 1 applic DAILY TOP Last administered on 08/03/16 09:47; Admin Dose 1 APPLIC; Start 07/10/16 at 14:00 Bisacodyl (Dulcolax) 10 mg BID PO Last administered on 08/03/16 09:44; Admin Dose 10 MG; Start 07/13/16 at 15:00 Benazepril HCl (Lotensin) 20 mg DAILY PO Last administered on 08/03/16 09:45; Admin Dose 20 MG; Start 07/16/16 at 09:00 Zolpidem Tartrate (Ambien) 2.5 mg HS PRN PO INSOMNIA; Start 07/17/16 at 19:00 Epoetin Zana (Epogen (Esrd)) 6,000 units TuThSa@17 SC Last administered on 08/02 17:12; Admin Dose 6,000 UNITS; Start 07/17/16 at 20:00 Miscellaneous Information (Pending Santyl Order For Wound Care) This patient ellis... PRN PRN XX WOUND CARE; Start 07/18/16 at 07:00 Lorazepam (Ativan) 0.5 mg Q6H PRN PO ANXEITY Last administered on 07/19/16 22: 28; Admin Dose 0.5 MG; Start 07/18/16 at 16:00 Clonidine (Catapres) 0.1 mg TID PO Last administered on 08/03/16 09:44; Admin Dose 0.1 MG; Start 07/19/16 at 09:00 Vancomycin HCl 125 mg 125 mg Q6 PO Last administered on 08/03/16 05:32; Admin Dose 125 MG; Start 07/21/16 at 19:00 Metronidazole (Flagyl 500 Mg (Pmx)) 100 ml @ 100 mls/hr Q8 IVPB Last administered on 08/03/16 05:32; Admin Dose 100 MLS/HR; Start 07/22/16 at 16:30 Lactobacillus Acidophilus/ Rhamnosus (Culturelle) 1 cap BID PO Last administered on 08/03/16 09:44; Admin Dose 1 CAP; Start 07/23/16 at 21:00 Ascorbic Acid (Vitamin C) 500 mg DAILY PO Last administered on 08/03/16 09:46 ; Admin Dose 500 MG; Start 07/26/16 at 09:00 Metoprolol Tartrate (Lopressor) 25 mg BID PO Last administered on 08/03/16 09: 45; Admin Dose 25 MG; Start 07/28/16 at 21:00 Hydralazine HCl (Apresoline) 10 mg Q4H PRN IV ELEVATED BLOOD PRESSURE Last administered on 07/29/16 14:50; Admin Dose 10 MG; Start 07/28/16 at 20:30 Nifedipine (Procardia Xl) 60 mg QAM PO Last administered on 08/03/16 09:46; Admin Dose 60 MG; Start 08/02/16 at 09:00 Nifedipine 30 mg 30 mg QHS PO Last administered on 08/02/16 20:58; Admin Dose 30 MG; Start 08/01/16 at 21:00 Daptomycin/Sodium Chloride (Cubicin/NS) 100 ml @ 200 mls/hr Q48H IVPB Last administered on 6/17/17at 23:26; Admin Dose 200 MLS/HR; Start 08/02/16 at 22:00 Assessment/Plan Chief Complaint/Hosp Course - early sepsis due to wound infection and C diff colitis - infection of wounds of b/l heel due to MRSA, enterococcus sp and corynebacter jeikeium (grp JK); MRI showed early osteomyelitis at b/l posterior calcaneal margin. - unstageable decub of b/l heel - C diff colitis - resolving - s/p possible HCAP, Pt completed empiric cefepime (07/10/2016-07/19/2016); CXR on 07/20/2016 showed improvement. 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 It requires total 6 weeks of IV antibiotic. - Pt has h/o ATN, and thrombocytopenia probably due to linezolid. Therefore, I recommend renally dosed daptomycin, plan to complete the remaining course of treatment, through 08/25/2016 (Pt received IV vancomycin, then linezolid before) . Check CK - continue PO vancomycin (07/15/2016-) and IV Flagyl (07/22/2016-) Care and management discussed with DANIEL Vergara and Dr. Timmons Problems: MICAH MURRAY Aug 03, 2016 10:51
--- NOTE | 2016-08-03 12:02 | PN ---
Date/Time of Note Date/Time of Note DATE: 08/03/16 TIME: 12:00 Assessment/Plan VTE Prophylaxis VTE Prophylaxis Intervention: other Lines/Catheters [facility] Sal[facility] Assessment/Plan Chief Complaint/Hosp Course cute kidney injury, Pre- Renal R/o ATN, [place] no signs of obstructive Uropathy, Hx of BPH.- Non Oliguric 2. Hypertension. Normotensive at this time. 3. Chronic obstructive pulmonary disease. 4. Benign prostatic hypertrophy. 5. Loculated pleural effusion. 6. Multiple decubiti 7. Cerebrovascular accident. 8. Dyslipidemia. 9. Dementia with behavioral disturbance. 10. Metabolic Acidosis-stable 11 c diff [id number] creat stable non oliguric cont plan [id number] non oliguric hypernatremia k replace /hypokalemia no hd [id number] non oliguric improving creat replace k [id number] creat stable cont plan Problems: Exam/Review of Systems Vital Signs Vitals Vital Signs Date Time Temp Pulse Resp B/P Pulse Ox O2 Delivery O2 Flow Rate FiO2 08/03/16 08:40 98.5 85 18 177/82 90 08/02/16 20:00 Nasal Cannula 2.0 07/30/16 15:43 21 Intake and Output 08/02/16 08/02/16 08/03/16 15:00 23:00 07:00 Intake Total 200 ml 300 ml Output Total 1000 ml Balance 200 ml -700 ml Exam Neck: supple Respiratory: clear to auscultation Cardiovascular: regular rate and rhythm Gastrointestinal: soft Musculoskeletal: other Results Result Diagram: 08/03/16 0552 08/03/16 0552 Results 24 hrs Laboratory Tests Test 08/03/16 05:52 White Blood Count 12.2 H Red Blood Count 3.41 L Hemoglobin 10.1 L Hematocrit 30.3 L Mean Corpuscular Volume 88.9 Mean Corpuscular Hemoglobin 29.6 Mean Corpuscular Hemoglobin Concent 33.3 Red Cell Distribution Width 15.1 H Platelet Count 95 L Mean Platelet Volume 10.4 Neutrophils % 76.6 Lymphocytes % 14.1 L Monocytes % 4.8 Eosinophils % 3.9 Basophils % 0.2 Nucleated Red Blood Cells % 0.0 Neutrophils # 9.4 H Lymphocytes # 1.7 Monocytes # 0.6 Eosinophils # 0.5 Basophils # 0.0 Nucleated Red Blood Cells # 0.0 Sodium Level 146 H Potassium Level 3.0 L Chloride Level 117 H Carbon Dioxide Level 19 L Anion Gap 13 Blood Urea Nitrogen 57 H Creatinine 3.11 H Glucose Level 88 Calcium Level 7.6 L Creatine Kinase 27 Medications Medications Current Medications Acetaminophen (Tylenol Tab) 500 mg Q6H PRN PO PAIN AND OR ELEVATED TEMP; Start 07/09/16 at 20:30 Ondansetron HCl (Zofran Inj) 4 mg Q6H PRN IV NAUSEA AND/OR VOMITING; Start at 20:30 Aspirin (Aspirin) 81 mg DAILY PO Last administered on 08/03/16 09:44; Admin Dose 81 MG; Start 07/10/16 at 09:00 Benztropine Mesylate (Cogentin) 1 mg BID PO Last administered on 08/03/16 09: 44; Admin Dose 1 MG; Start 07/09/16 at 21:00 Finasteride (Proscar) 5 mg DAILY PO Last administered on 08/03/16 09:46; Admin Dose 5 MG; Start 07/10/16 at 09:00 Acetaminophen/ Hydrocodone Bitart ([place] (5/325)) 1 tab Q4 PRN PO SEVERE PAIN LEVEL 7-10 Last administered on 07/15/16 16:21; Admin Dose 1 TAB; Start at 20:30 Latanoprost (Xalatan) 1 drop QHS BOTH EYES Last administered on 08/02/16 21:10 ; Admin Dose 1 DROP; Start 07/09/16 at 21:00 Multivitamins Therapeutic (Theragran) 1 tab DAILY PO Last administered on 09:46; Admin Dose 1 TAB; Start 07/10/16 at 09:00 Olanzapine (Zyprexa) 5 mg QHS PO Last administered on 08/02/16 20:57; Admin Dose 5 MG; Start 07/09/16 at 21:00 Zinc Sulfate (Zinc Sulfate) 220 mg DAILY PO Last administered on 08/03/16 09: 46; Admin Dose 220 MG; Start 07/10/16 at 09:00 Acetaminophen (Tylenol Supp) [address] ELEVATED TEMPERATURE Last administered on 07/10/16 09:51; Admin Dose 650 MG; Start 07/10/16 at 09:30 Collagenase (Santyl) 1 applic DAILY TOP Last administered on 08/03/16 09:47; Admin Dose 1 APPLIC; Start 07/10/16 at 14:00 Bisacodyl (Dulcolax) 10 mg BID PO Last administered on 08/03/16 09:44; Admin Dose 10 MG; Start 07/13/16 at 15:00 Benazepril HCl (Lotensin) 20 mg DAILY PO Last administered on 08/03/16 09:45; Admin Dose 20 MG; Start 07/16/16 at 09:00 Zolpidem Tartrate (Ambien) 2.5 mg HS PRN PO INSOMNIA; Start 07/17/16 at 19:00 Epoetin Zana (Epogen (Esrd)) 6,000 units TuThSa@17 SC Last administered on 08/02 17:12; Admin Dose 6,000 UNITS; Start 07/17/16 at 20:00 Miscellaneous Information (Pending Santyl Order For Wound Care) This patient ellis... PRN PRN XX WOUND CARE; Start 07/18/16 at 07:00 Lorazepam (Ativan) 0.5 mg Q6H PRN PO ANXEITY Last administered on 07/19/16 22: 28; Admin Dose 0.5 MG; Start 07/18/16 at 16:00 Clonidine (Catapres) 0.1 mg TID PO Last administered on 08/03/16 09:44; Admin Dose 0.1 MG; Start 07/19/16 at 09:00 Vancomycin HCl 125 mg 125 mg Q6 PO Last administered on 08/03/16 05:32; Admin Dose 125 MG; Start 07/21/16 at 19:00 Metronidazole (Flagyl 500 Mg (Pmx)) 100 ml @ 100 mls/hr Q8 IVPB Last administered on 08/03/16 05:32; Admin Dose 100 MLS/HR; Start 07/22/16 at 16:30 Lactobacillus Acidophilus/ Rhamnosus (Culturelle) 1 cap BID PO Last administered on 08/03/16 09:44; Admin Dose 1 CAP; Start 07/23/16 at 21:00 Ascorbic Acid (Vitamin C) 500 mg DAILY PO Last administered on 08/03/16 09:46 ; Admin Dose 500 MG; Start 07/26/16 at 09:00 Metoprolol Tartrate (Lopressor) 25 mg BID PO Last administered on 08/03/16 09: 45; Admin Dose 25 MG; Start 07/28/16 at 21:00 Hydralazine HCl (Apresoline) 10 mg Q4H PRN IV ELEVATED BLOOD PRESSURE Last administered on 07/29/16 14:50; Admin Dose 10 MG; Start 07/28/16 at 20:30 Nifedipine (Procardia Xl) 60 mg QAM PO Last administered on 08/03/16 09:46; Admin Dose 60 MG; Start 08/02/16 at 09:00 Nifedipine 30 mg 30 mg QHS PO Last administered on 08/02/16 20:58; Admin Dose 30 MG; Start 08/01/16 at 21:00 Daptomycin/Sodium Chloride (Cubicin/NS) 100 ml @ 200 mls/hr Q48H IVPB Last administered on 08/02/16 23:26; Admin Dose 200 MLS/HR; Start 08/02/16 at 22:00 STEPHAN MELO MD Aug 03, 2016 12:02
[2016-08-03] MEDS: POTASSIUM CHLORIDE (SR) 20 MEQ TAB PO SCH ×2 (13:55→18:15)
[2016-08-03 13:59] VITALS: BP 108/58; PULSE 70; RESP 18
[2016-08-03] MEDS ORDERED: POTASSIUM CHLORIDE (SR) 20 MEQ TAB PO STA (13:59)
--- NOTE | 2016-08-03 13:59 | CONS ---
Date/Time of Note Date/Time of Note DATE: 08/03/16 TIME: 13:55 Assessment/Plan Assessment/Plan Additional Assessment/Plan Debridement of heel decubitus ulcers Hypertension Abnormal electrocardiogram Clostridium difficile Colitis. Renal failure. Encephalopathy. Chronic obstructive pulmonary disease. CVA Dyslipidemia. Dementia. Anemia. Hypertensive Continue Metoprolol Continue Procardia Continue Clonidine Continue Benazepril Continue Wound care Continue antibiotics Continue flagyl continue Epogen Replete Potassium Consultation Date/Type/Reason Admit Date/Time July 09, 2016 at 12:24 Initial Consult Date 07/26/16 Type of Consultation: INFECTIOUS DISEASE Referring Provider: RONNIE PATEL MD Exam/Review of Systems Vital Signs Vitals Vital Signs Date Time Temp Pulse Resp B/P Pulse Ox O2 Delivery O2 Flow Rate FiO2 08/03/16 08:40 98.5 85 18 177/82 90 08/02/16 20:00 Nasal Cannula 2.0 07/30/16 15:43 21 Intake and Output 08/02/16 08/02/16 08/03/16 15:00 23:00 07:00 Intake Total 200 ml 300 ml Output Total 1000 ml Balance 200 ml -700 ml Exam Constitutional: alert Head: atraumatic, normocephalic Neck: non-tender, supple Respiratory: clear to auscultation Cardiovascular: regular rate and rhythm Gastrointestinal: nl liver, spleen, non-tender, soft Extremity: Right heel wound Results Result Diagram: 08/03/16 0552 08/03/16 0552 Results 24 hrs Laboratory Tests Test 08/03/16 05:52 White Blood Count 12.2 H Red Blood Count 3.41 L Hemoglobin 10.1 L Hematocrit 30.3 L Mean Corpuscular Volume 88.9 Mean Corpuscular Hemoglobin 29.6 Mean Corpuscular Hemoglobin Concent 33.3 Red Cell Distribution Width 15.1 H Platelet Count 95 L Mean Platelet Volume 10.4 Neutrophils % 76.6 Lymphocytes % 14.1 L Monocytes % 4.8 Eosinophils % 3.9 Basophils % 0.2 Nucleated Red Blood Cells % 0.0 Neutrophils # 9.4 H Lymphocytes # 1.7 Monocytes # 0.6 Eosinophils # 0.5 Basophils # 0.0 Nucleated Red Blood Cells # 0.0 Sodium Level 146 H Potassium Level 3.0 L Chloride Level 117 H Carbon Dioxide Level 19 L Anion Gap 13 Blood Urea Nitrogen 57 H Creatinine 3.11 H Glucose Level 88 Calcium Level 7.6 L Creatine Kinase 27 Medications Medications Current Medications Acetaminophen (Tylenol Tab) 500 mg Q6H PRN PO PAIN AND OR ELEVATED TEMP; Start 07/09/16 at 20:30 Ondansetron HCl (Zofran Inj) 4 mg Q6H PRN IV NAUSEA AND/OR VOMITING; Start at 20:30 Aspirin (Aspirin) 81 mg DAILY PO Last administered on 08/03/16 09:44; Admin Dose 81 MG; Start 07/10/16 at 09:00 Benztropine Mesylate (Cogentin) 1 mg BID PO Last administered on 08/03/16 09: 44; Admin Dose 1 MG; Start 07/09/16 at 21:00 Finasteride (Proscar) 5 mg DAILY PO Last administered on 08/03/16 09:46; Admin Dose 5 MG; Start 07/10/16 at 09:00 Acetaminophen/ Hydrocodone Bitart ([place] (5/325)) 1 tab Q4 PRN PO SEVERE PAIN LEVEL 7-10 Last administered on 07/15/16 16:21; Admin Dose 1 TAB; Start at 20:30 Latanoprost (Xalatan) 1 drop QHS BOTH EYES Last administered on 08/02/16 21:10 ; Admin Dose 1 DROP; Start 07/09/16 at 21:00 Multivitamins Therapeutic (Theragran) 1 tab DAILY PO Last administered on 09:46; Admin Dose 1 TAB; Start 07/10/16 at 09:00 Olanzapine (Zyprexa) 5 mg QHS PO Last administered on 08/02/16 20:57; Admin Dose 5 MG; Start 07/09/16 at 21:00 Zinc Sulfate (Zinc Sulfate) 220 mg DAILY PO Last administered on 08/03/16 09: 46; Admin Dose 220 MG; Start 07/10/16 at 09:00 Acetaminophen (Tylenol Supp) 650 mg Q6H PRN [place] ELEVATED TEMPERATURE Last administered on 07/10/16 09:51; Admin Dose 650 MG; Start 07/10/16 at 09:30 Collagenase (Santyl) 1 applic DAILY TOP Last administered on 08/03/16 09:47; Admin Dose 1 APPLIC; Start 07/10/16 at 14:00 Bisacodyl (Dulcolax) 10 mg BID PO Last administered on 08/03/16 09:44; Admin Dose 10 MG; Start 07/13/16 at 15:00 Benazepril HCl (Lotensin) 20 mg DAILY PO Last administered on 08/03/16 09:45; Admin Dose 20 MG; Start 07/16/16 at 09:00 Zolpidem Tartrate (Ambien) 2.5 mg HS PRN PO INSOMNIA; Start 07/17/16 at 19:00 Epoetin Zana (Epogen (Esrd)) 6,000 units TuThSa@17 SC Last administered on 08/02 17:12; Admin Dose 6,000 UNITS; Start 07/17/16 at 20:00 Miscellaneous Information (Pending Santyl Order For Wound Care) This patient ellsi... PRN PRN XX WOUND CARE; Start 07/18/16 at 07:00 Lorazepam (Ativan) 0.5 mg Q6H PRN PO ANXEITY Last administered on 07/19/16 22: 28; Admin Dose 0.5 MG; Start 07/18/16 at 16:00 Clonidine (Catapres) 0.1 mg TID PO Last administered on 08/03/16 09:44; Admin Dose 0.1 MG; Start 07/19/16 at 09:00 Vancomycin HCl 125 mg 125 mg Q6 PO Last administered on 08/03/16 05:32; Admin Dose 125 MG; Start 07/21/16 at 19:00 Metronidazole (Flagyl 500 Mg (Pmx)) 100 ml @ 100 mls/hr Q8 IVPB Last administered on 08/03/16 05:32; Admin Dose 100 MLS/HR; Start 07/22/16 at 16:30 Lactobacillus Acidophilus/ Rhamnosus (Culturelle) 1 cap BID PO Last administered on 08/03/16 09:44; Admin Dose 1 CAP; Start 07/23/16 at 21:00 Ascorbic Acid (Vitamin C) 500 mg DAILY PO Last administered on 08/03/16 09:46 ; Admin Dose 500 MG; Start 07/26/16 at 09:00 Metoprolol Tartrate (Lopressor) 25 mg BID PO Last administered on 08/03/16 09: 45; Admin Dose 25 MG; Start 07/28/16 at 21:00 Hydralazine HCl (Apresoline) 10 mg Q4H PRN IV ELEVATED BLOOD PRESSURE Last administered on 07/29/16 14:50; Admin Dose 10 MG; Start 07/28/16 at 20:30 Nifedipine (Procardia Xl) 60 mg QAM PO Last administered on 08/03/16 09:46; Admin Dose 60 MG; Start 08/02/16 at 09:00 Nifedipine 30 mg 30 mg QHS PO Last administered on 08/02/16 20:58; Admin Dose 30 MG; Start 08/01/16 at 21:00 Daptomycin/Sodium Chloride (Cubicin/NS) 100 ml @ 200 mls/hr Q48H IVPB Last administered on 08/02/16 23:26; Admin Dose 200 MLS/HR; Start 08/02/16 at 22:00 Potassium Chloride (Klor-Con 20) 20 meq Q4H PO ; Start 08/03/16 at 12:30; Stop 08/03/16 at 16:31 DIAMOND REED M.D. Aug 03, 2016 13:59
[2016-08-03] MEDS: AMLODIPINE 10 MG TAB PO SCH (14:00)
--- NOTE | 2016-08-03 15:08 | PN ---
Date/Time of Note Date/Time of Note DATE: 08/03/16 TIME: 15:07 Assessment/Plan Lines/Catheters IV [facility]from [facility] Saline Lock Assessment/Plan Assessment/Plan - hypokalemia- K replaced, AM BMP - Bilateral heel wounds, patient is evaluated by Dr. Bell in podiatry consultation with recommendation of continue current wound care and not to proceed with debridement. - C. difficile colitis. Dr. Henderson is following an infection disease consultation. Continue oral vancomycin and intravenous metronidazole. - Colitis ulcers per colonoscopy, continue to follow-up gastroenterology recommendations. - Infected wounds on bilateral lower extremities. Continue antibiotics per ID. - Acute kidney injury on chronic kidney disease stage III. Dr. Srinivasan is following in nephrology consultation. - Acute metabolic encephalopathy, resolving. - Hypertension. Continue clonidine, Procardia and benazepril - Chronic obstructive pulmonary disease. Continue DuoNeb. - Benign prostatic hypertrophy. Continue Flomax. - Multiple decubitus ulcers present on admission. Continue local wound care, offloading. - Acute cerebrovascular accident. Continue aspirin. - Dyslipidemia. Continue Lipitor. - Dementia with behavioral disturbance. Continue Zyprexa. Further recommendations based on clinical course. Plan of care discussed with Dr. Rene. Exam/Review of Systems Vital Signs Vitals Vital Signs Date Time Temp Pulse Resp B/P Pulse Ox O2 Delivery O2 Flow Rate FiO2 08/03/16 13:59 70 18 108/58 08/03/16 08:40 98.5 90 08/02/16 20:00 Nasal Cannula 2.0 07/30/16 15:43 21 Intake and Output 08/02/16 08/02/16 08/03/16 15:00 23:00 07:00 Intake Total 200 ml 300 ml Output Total 1000 ml Balance 200 ml -700 ml Results Result Diagram: 08/03/16 0552 08/03/16 0552 Results 24 hrs Laboratory Tests Test 08/03/16 05:52 White Blood Count 12.2 H Red Blood Count 3.41 L Hemoglobin 10.1 L Hematocrit 30.3 L Mean Corpuscular Volume 88.9 Mean Corpuscular Hemoglobin 29.6 Mean Corpuscular Hemoglobin Concent 33.3 Red Cell Distribution Width 15.1 H Platelet Count 95 L Mean Platelet Volume 10.4 Neutrophils % 76.6 Lymphocytes % 14.1 L Monocytes % 4.8 Eosinophils % 3.9 Basophils % 0.2 Nucleated Red Blood Cells % 0.0 Neutrophils # 9.4 H Lymphocytes # 1.7 Monocytes # 0.6 Eosinophils # 0.5 Basophils # 0.0 Nucleated Red Blood Cells # 0.0 Sodium Level 146 H Potassium Level 3.0 L Chloride Level 117 H Carbon Dioxide Level 19 L Anion Gap 13 Blood Urea Nitrogen 57 H Creatinine 3.11 H Glucose Level 88 Calcium Level 7.6 L Creatine Kinase 27 Medications Medications Current Medications Acetaminophen (Tylenol Tab) 500 mg Q6H PRN PO PAIN AND OR ELEVATED TEMP; Start 07/09/16 at 20:30 Ondansetron HCl (Zofran Inj) 4 mg Q6H PRN IV NAUSEA AND/OR VOMITING; Start at 20:30 Aspirin (Aspirin) 81 mg DAILY PO Last administered on 08/03/16 09:44; Admin Dose 81 MG; Start 07/10/16 at 09:00 Benztropine Mesylate (Cogentin) 1 mg BID PO Last administered on 08/03/16 09: 44; Admin Dose 1 MG; Start 07/09/16 at 21:00 Finasteride (Proscar) 5 mg DAILY PO Last administered on 08/03/16 09:46; Admin Dose 5 MG; Start 07/10/16 at 09:00 Acetaminophen/ Hydrocodone Bitart ([place] (5/325)) 1 tab Q4 PRN PO SEVERE PAIN LEVEL 7-10 Last administered on 07/15/16 16:21; Admin Dose 1 TAB; Start at 20:30 Latanoprost (Xalatan) 1 drop QHS BOTH EYES Last administered on 08/02/16 21:10 ; Admin Dose 1 DROP; Start 07/09/16 at 21:00 Multivitamins Therapeutic (Theragran) 1 tab DAILY PO Last administered on 09:46; Admin Dose 1 TAB; Start 07/10/16 at 09:00 Olanzapine (Zyprexa) 5 mg QHS PO Last administered on 08/02/16 20:57; Admin Dose 5 MG; Start 07/09/16 at 21:00 Zinc Sulfate (Zinc Sulfate) 220 mg DAILY PO Last administered on 08/03/16 09: 46; Admin Dose 220 MG; Start 07/10/16 at 09:00 Acetaminophen (Tylenol Supp) 650 mg Q6H PRN [place] ELEVATED TEMPERATURE Last administered on 07/10/16 09:51; Admin Dose 650 MG; Start 07/10/16 at 09:30 Collagenase (Santyl) 1 applic DAILY TOP Last administered on 08/03/16 09:47; Admin Dose 1 APPLIC; Start 07/10/16 at 14:00 Bisacodyl (Dulcolax) 10 mg BID PO Last administered on 08/03/16 09:44; Admin Dose 10 MG; Start 07/13/16 at 15:00 Benazepril HCl (Lotensin) 20 mg DAILY PO Last administered on 08/03/16 09:45; Admin Dose 20 MG; Start 07/16/16 at 09:00 Zolpidem Tartrate (Ambien) 2.5 mg HS PRN PO INSOMNIA; Start 07/17/16 at 19:00 Epoetin Zana (Epogen (Esrd)) 6,000 units TuThSa@17 SC Last administered on 08/02 17:12; Admin Dose 6,000 UNITS; Start 07/17/16 at 20:00 Miscellaneous Information (Pending Santyl Order For Wound Care) This patient ellis... PRN PRN XX WOUND CARE; Start 07/18/16 at 07:00 Lorazepam (Ativan) 0.5 mg Q6H PRN PO ANXEITY Last administered on 07/19/16 22: 28; Admin Dose 0.5 MG; Start 07/18/16 at 16:00 Clonidine (Catapres) 0.1 mg TID PO Last administered on 08/03/16 09:44; Admin Dose 0.1 MG; Start 07/19/16 at 09:00 Vancomycin HCl 125 mg 125 mg Q6 PO Last administered on 08/03/16 13:56; Admin Dose 125 MG; Start 07/21/16 at 19:00 Metronidazole (Flagyl 500 Mg (Pmx)) 100 ml @ 100 mls/hr Q8 IVPB Last administered on 08/03/16 13:56; Admin Dose 100 MLS/HR; Start 07/22/16 at 16:30 Lactobacillus Acidophilus/ Rhamnosus (Culturelle) 1 cap BID PO Last administered on 08/03/16 09:44; Admin Dose 1 CAP; Start 07/23/16 at 21:00 Ascorbic Acid (Vitamin C) 500 mg DAILY PO Last administered on 08/03/16 09:46 ; Admin Dose 500 MG; Start 07/26/16 at 09:00 Metoprolol Tartrate (Lopressor) 25 mg BID PO Last administered on 08/03/16 09: 45; Admin Dose 25 MG; Start 07/28/16 at 21:00 Hydralazine HCl (Apresoline) 10 mg Q4H PRN IV ELEVATED BLOOD PRESSURE Last administered on 07/29/16 14:50; Admin Dose 10 MG; Start 07/28/16 at 20:30 Nifedipine (Procardia Xl) 60 mg QAM PO Last administered on 08/03/16 09:46; Admin Dose 60 MG; Start 08/02/16 at 09:00 Nifedipine 30 mg 30 mg QHS PO Last administered on 08/02/16 20:58; Admin Dose 30 MG; Start 08/01/16 at 21:00 Daptomycin/Sodium Chloride (Cubicin/NS) 100 ml @ 200 mls/hr Q48H IVPB Last administered on 08/02/16 23:26; Admin Dose 200 MLS/HR; Start 08/02/16 at 22:00 Potassium Chloride (Klor-Con 20) 20 meq Q4H PO Last administered on 08/03/16 13:55; Admin Dose 20 MEQ; Start 08/03/16 at 12:30; Stop 08/03/16 at 16:31 Amlodipine Besylate (Norvasc) 10 mg DAILY PO ; Start 08/03/16 at 14:00 ISAEL CRYSTAL Aug 03, 2016 15:08
--- NOTE | 2016-08-03 17:56 | PN ---
DATE: 08/03/2016 SUBJECTIVE: No new complaints. The patient has been admitted because of acute renal failure and was found to have many medical problems including decubitus ulcer of the sacrococcygeal area and bilateral decubitus ulcer of the heels. Also, C diff infection. Renal failure. OBJECTIVE GENERAL: Awake, sleepy, arousable easily. VITAL SIGNS: Temperature 98.5, heart rate 70, respirations 18, blood pressure 108/58, saturation 90% on room air. ABDOMEN: Soft. Sacrococcygeal wound. As was mentioned, this is just like yesterday, it is healing, it is in better shape, is a stage II. EXTREMITIES: Black eschar covering the heels. IMAGING: MRI of both feet as the presence of early osteomyelitis. LABORATORY DATA: Last WBC increased to 12,200 with 76% neutrophils, hemoglobin 10.1, hematocrit 30.3. Sodium 146 systolic, potassium low 3, BUN 57, creatinine 3.11, calcium is 7.6. PLAN: From a general surgical point of view, continue the application of the Adaptic followed on top of it by the foam dressing for the protection of the sacrococcygeal wound. The management of the bilateral heel pressure ulcer per Dr. Bell, the electronic design engineer. I will continue to follow the patient along with other colleagues. Dictated By: LISSETH RIVERS/MEAGAN Conf#: [id number] DID#: [id number] MTDD
[2016-08-03 20:08] VITALS: BP 130/95; RESP 20
[2016-08-03] MEDS: LATANOPROST 0.005% 2.5 ML OPH BOTH EYES SCH (21:45)
[2016-08-03] MEDS: OLANZAPINE 5 MG TAB PO SCH (21:45)
[2016-08-04] MEDS: metroNIDAZOLE 500 MG/NS (PMX) 100 ML IVPB SCH ×3 (05:31→22:47)
[2016-08-04] MEDS: VANCOMYCIN HCL 250 MG/5ML POSYG PO SCH ×3 (05:31→17:58)
[2016-08-04 06:24] LABS: ADD SCAN DIFF NO
[2016-08-04 06:29] LABS: ABNORMAL IP MESSAGE 1; BASOPHILS % 0.2 % (0.0-2.0); EOSINOPHILS # 0.5 10^3/ul (0.0-0.5); EOSINOPHILS % 5.2 % (0.0-7.0); HEMATOCRIT 26.3 % (42.0-52.0); HEMOGLOBIN 8.7 g/dl (14.0-18.0); LYMPHOCYTES # 1.2 10^3/ul (0.8-2.9); LYMPHOCYTES % 12.5 % (15.0-51.0); MEAN CORPUSCULAR HEMOGLOBIN 29.7 pg (29.0-33.0); MEAN CORPUSCULAR HGB CONC 33.1 g/dl (32.0-37.0); MEAN CORPUSCULAR VOLUME 89.8 fl (82.0-101.0); MEAN PLATELET VOLUME 10.8 fl (7.4-10.4); MONOCYTE # 0.7 10^3/ul (0.3-0.9); MONOCYTES % 7.4 % (0.0-11.0); NEUTROPHIL # 7.3 10^3/ul (1.6-7.5); NEUTROPHILS % 74.4 % (39.0-77.0); PLATELET COUNT 76 10^3/UL (140-415); RED BLOOD COUNT 2.93 10^6/ul (4.70-6.10); WHITE BLOOD COUNT 9.8 10^3/ul (4.8-10.8)
[2016-08-04 06:57] LABS: CALCIUM 7.5 mg/dl (8.4-10.2); CREATININE 3.06 mg/dl (0.61-1.24)
[2016-08-04 08:00] VITALS: BP 153/74; RESP 18
--- NOTE | 2016-08-04 08:19 | PN ---
DATE: 08/02/2016 Followup for this patient in regards to the decubitus ulcers. SUBJECTIVE: The patient is lying down in the bed with flexed hips and flexed knees. Does not have any kind of coccygeal complaint. OBJECTIVE: GENERAL: He is a awake and alert, responding to simple questions and follows simple commands. VITAL SIGNS: Temperature 98.7, heart rate 67 recorded, respirations 18, blood pressure 160/72, saturations 91% with 2 liters nasal cannula. LABORATORY: Today sodium 145, potassium 3.4, BUN 58, creatinine 3.016, calcium is 7.6. WBC has come down to 10,800, which is within normal limits. with 76% neutrophils, which is normal. Hemoglobin 9.1, hematocrit 27.7. MRI of the foot reveals: 1. Large skin and subcutaneous wound at the posterior aspect of the calcaneus and surrounding findings of cellulitis. No large drainable fluid collection is seen. 2. Evidence of early osteomyelitis at the posterior calcaneal margins. This is on the right on. The left calcaneus shows moderate sized skin, subcutaneous wound at the posterior aspect of the calcaneus and surrounding finding of cellulitis. No large drainable fluid collection is seen. The findings are somewhat less pronounced on the left foot than the right foot. 3. Evidence of osteomyelitis at the posterior calcaneal margin. The patient was moved to the side and the sacrococcygeal area was inspected. Actually the wound is healing properly. I think this is stage II at sacro-coccygeal area. There is no necrosis present at this time. ASSESSMENT: The patient is admitted with acute renal failure and a history of recent stroke, as well as bilateral calcaneal decubitus ulcers, and also was found to have some sacrococcygeal wound which was stage II or stage III, has responded to treatment.and is much better. The bilateral heels wound shows evidence of black eschar bilaterally and some granulation tissue formation on the periphery of the wound. We got MRI of the feet, as was mentioned, that shows evidence of early osteomyelitis, considering the problem with the feet and since Dr. Lebron Bell has been also consulted for these problems, I am going to leave it to his expert opinion for management of the bilateral heel wounds, and I will follow the patient regarding the sacrococcygeal wound. Dictated By: LISSETH THORPE MD PS/MEAGAN Conf#: [id number] DID#: [id number] RAY
[2016-08-04] MEDS: CALCIUM CARBONATE 750 MG CHEW TAB PO SCH ×3 (08:24→18:00)
[2016-08-04] MEDS: PANTOPRAZOLE (EC) 40 MG TAB PO SCH (08:24)
[2016-08-04] MEDS: MULTIVITAMINS THERAPEUTIC TAB PO SCH (08:25)
[2016-08-04] MEDS: ASPIRIN 81 MG TAB PO SCH (08:26)
[2016-08-04] MEDS: LACTOBACILLUS RHAMNOSUS CAP PO SCH ×2 (08:26→20:55)
[2016-08-04] MEDS: ZINC SULFATE 220 MG CAP PO SCH (08:26)
[2016-08-04] MEDS: ASCORBIC ACID 500 MG TAB PO SCH (08:26)
[2016-08-04] MEDS: BENZTROPINE 1 MG TAB PO SCH ×2 (08:27→20:55)
[2016-08-04] MEDS: FINASTERIDE 5 MG TAB PO SCH (08:27)
[2016-08-04] MEDS: BISACODYL (EC) 5 MG TAB PO SCH ×2 (08:28→20:55)
[2016-08-04] MEDS: BENAZEPRIL 20 MG TAB PO SCH (08:30)
[2016-08-04] MEDS: NIFEdipine (XL) 30 MG TAB PO SCH ×2 (08:30→20:56)
[2016-08-04] MEDS: AMLODIPINE 10 MG TAB PO SCH (08:30)
[2016-08-04] MEDS: METOPROLOL 25 MG TAB PO SCH ×2 (08:31→20:57)
[2016-08-04] MEDS: COLLAGENASE 30 GM TUBE TOP SCH (08:33)
--- NOTE | 2016-08-04 11:07 | CONS ---
Date/Time of Note Date/Time of Note DATE: 08/04/16 TIME: 11:04 Assessment/Plan Assessment/Plan Chief Complaint/Hosp Course IMPRESSION: 1. Preoperative evaluation prior to debridement of heel decubitus ulcers.- negative trop x 3/NL EF by echo this admit with no sig contraindicated valve lesions. Ok to proceed to OR on BB continue pre-post op without further non- invasive eval at moderate risk 2. Hypertension-uncontrolled 3. Abnormal electrocardiogram with anteroseptal Q's and normal ejection fraction by echo this admit. 4. Clostridium difficile Colitis. 5. Renal failure. 6. Encephalopathy. 7. Chronic obstructive pulmonary disease. 8. History of cerebrovascular accident. 9. Dyslipidemia. 10. Dementia. 11. Anemia. 12. Leukocytosis. 12. Coagulopathy. Recc: -Continue asa -Continue abx's and f/u cx data -local wound care -Continue current BB/ACEI/clonidine/procardia XL and follow labile BP closely -Follow volume status closely Problems: Consultation Date/Type/Reason Admit Date/Time July 09, 2016 at 12:24 Initial Consult Date 07/26/16 Type of Consultation: Cardiology Reason for Consultation Pre-op Referring Provider: RONNIE PATEL MD Exam/Review of Systems Vital Signs Vitals Vital Signs Date Time Temp Pulse Resp B/P Pulse Ox O2 Delivery O2 Flow Rate FiO2 08/04/16 08:00 98.8 79 18 153/74 90 08/03/16 20:00 Nasal Cannula 2.0 Intake and Output 08/03/16 08/03/16 08/04/16 15:00 23:00 07:00 Intake Total 100 ml 1570 ml 220 ml Output Total 550 ml 1000 ml Balance 100 ml 1020 ml -780 ml Exam Review of Systems: CONSTITUTIONAL: No fevers, chills. PULMONARY: No sob CARDIOVASCULAR: No chest pain/palpitations GASTROINTESTINAL: No nausea/vomiting. GENITOURINARY: No hematuria/dysuria. MUSCULOSKELETAL: No myagias/arthalgias. PSYCHIATRIC: The patient denies depression. NEUROLOGIC: lethargic Constitutional: other (sleeping) Psych: no complaints Head: normocephalic Eyes: nl conjunctiva ENMT: mucosa pink and moist Neck: jvd, supple Respiratory: diminished breath sounds Cardiovascular: regular rate and rhythm Gastrointestinal: non-tender, soft Musculoskeletal: muscle tone Extremities: normal pulses Neurological: confused (no focal deficits) Results Result Diagram: 08/04/16 0559 08/04/16 0559 Results 24 hrs Laboratory Tests Test 08/04/16 05:59 White Blood Count 9.8 Red Blood Count 2.93 L Hemoglobin 8.7 L Hematocrit 26.3 L Mean Corpuscular Volume 89.8 Mean Corpuscular Hemoglobin 29.7 Mean Corpuscular Hemoglobin Concent 33.1 Red Cell Distribution Width 15.0 H Platelet Count 76 L Mean Platelet Volume 10.8 H Neutrophils % 74.4 Lymphocytes % 12.5 L Monocytes % 7.4 Eosinophils % 5.2 Basophils % 0.2 Nucleated Red Blood Cells % 0.0 Neutrophils # 7.3 Lymphocytes # 1.2 Monocytes # 0.7 Eosinophils # 0.5 Basophils # 0.0 Nucleated Red Blood Cells # 0.0 Sodium Level 148 H Potassium Level 3.0 L Chloride Level 120 H Carbon Dioxide Level 20 L Anion Gap 11 Blood Urea Nitrogen 57 H Creatinine 3.06 H Glucose Level 110 Calcium Level 7.5 L Medications Medications Current Medications Acetaminophen (Tylenol Tab) 500 mg Q6H PRN PO PAIN AND OR ELEVATED TEMP; Start 07/09/16 at 20:30 Ondansetron HCl (Zofran Inj) 4 mg Q6H PRN IV NAUSEA AND/OR VOMITING; Start at 20:30 Aspirin (Aspirin) 81 mg DAILY PO Last administered on 08/04/16 08:26; Admin Dose 81 MG; Start 07/10/16 at 09:00 Benztropine Mesylate (Cogentin) 1 mg BID PO Last administered on 08/04/16 08: 27; Admin Dose 1 MG; Start 07/09/16 at 21:00 Finasteride (Proscar) 5 mg DAILY PO Last administered on 08/04/16 08:27; Admin Dose 5 MG; Start 07/10/16 at 09:00 Acetaminophen/ Hydrocodone Bitart ([place] (5/325)) 1 tab Q4 PRN PO SEVERE PAIN LEVEL 7-10 Last administered on 07/15/16 16:21; Admin Dose 1 TAB; Start at 20:30 Latanoprost (Xalatan) 1 drop QHS BOTH EYES Last administered on 08/03/16 21:45 ; Admin Dose 1 DROP; Start 07/09/16 at 21:00 Multivitamins Therapeutic (Theragran) 1 tab DAILY PO Last administered on 08:25; Admin Dose 1 TAB; Start 07/10/16 at 09:00 Olanzapine (Zyprexa) 5 mg QHS PO Last administered on 08/03/16 21:45; Admin Dose 5 MG; Start 07/09/16 at 21:00 Zinc Sulfate (Zinc Sulfate) 220 mg DAILY PO Last administered on 08/04/16 08: 26; Admin Dose 220 MG; Start 07/10/16 at 09:00 Acetaminophen (Tylenol Supp) 650 mg Q6H PRN [place] ELEVATED TEMPERATURE Last administered on 07/10/16 09:51; Admin Dose 650 MG; Start 07/10/16 at 09:30 Collagenase (Santyl) 1 applic DAILY TOP Last administered on 08/04/16 08:33; Admin Dose 1 APPLIC; Start 07/10/16 at 14:00 Bisacodyl (Dulcolax) 10 mg BID PO Last administered on 08/04/16 08:28; Admin Dose 10 MG; Start 07/13/16 at 15:00 Benazepril HCl (Lotensin) 20 mg DAILY PO Last administered on 08/04/16 08:30; Admin Dose 20 MG; Start 07/16/16 at 09:00 Zolpidem Tartrate (Ambien) 2.5 mg HS PRN PO INSOMNIA; Start 07/17/16 at 19:00 Epoetin Zana (Epogen (Esrd)) 6,000 units TuThSa@17 SC Last administered on 08/02 17:12; Admin Dose 6,000 UNITS; Start 07/17/16 at 20:00 Miscellaneous Information (Pending Santyl Order For Wound Care) This patient ellis... PRN PRN XX WOUND CARE; Start 07/18/16 at 07:00 Lorazepam (Ativan) 0.5 mg Q6H PRN PO ANXEITY Last administered on 07/19/16 22: 28; Admin Dose 0.5 MG; Start 07/18/16 at 16:00 Clonidine (Catapres) 0.1 mg TID PO Last administered on 08/04/16 08:29; Admin Dose 0.1 MG; Start 07/19/16 at 09:00 Vancomycin HCl 125 mg 125 mg Q6 PO Last administered on 08/04/16 05:31; Admin Dose 125 MG; Start 07/21/16 at 19:00 Metronidazole (Flagyl 500 Mg (Pmx)) 100 ml @ 100 mls/hr Q8 IVPB Last administered on 08/04/16 05:31; Admin Dose 100 MLS/HR; Start 07/22/16 at 16:30 Lactobacillus Acidophilus/ Rhamnosus (Culturelle) 1 cap BID PO Last administered on 08/04/16 08:26; Admin Dose 1 CAP; Start 07/23/16 at 21:00 Ascorbic Acid (Vitamin C) 500 mg DAILY PO Last administered on 08/04/16 08:26 ; Admin Dose 500 MG; Start 07/26/16 at 09:00 Metoprolol Tartrate (Lopressor) 25 mg BID PO Last administered on 08/04/16 08: 31; Admin Dose 25 MG; Start 07/28/16 at 21:00 Hydralazine HCl (Apresoline) 10 mg Q4H PRN IV ELEVATED BLOOD PRESSURE Last administered on 07/29/16 14:50; Admin Dose 10 MG; Start 07/28/16 at 20:30 Nifedipine (Procardia Xl) 60 mg QAM PO Last administered on 08/04/16 08:30; Admin Dose 60 MG; Start 08/02/16 at 09:00 Nifedipine 30 mg 30 mg QHS PO Last administered on 08/03/16 21:45; Admin Dose 30 MG; Start 08/01/16 at 21:00 Daptomycin/Sodium Chloride (Cubicin/NS) 100 ml @ 200 mls/hr Q48H IVPB Last administered on 08/02/16 23:26; Admin Dose 200 MLS/HR; Start 08/02/16 at 22:00 Amlodipine Besylate (Norvasc) 10 mg DAILY PO Last administered on 08/04/16 08: 30; Admin Dose 10 MG; Start 08/03/16 at 14:00 PACHECO COHEN Aug 04, 2016 11:07
--- NOTE | 2016-08-04 12:00 | CONS ---
Date/Time of Note Date/Time of Note DATE: 08/04/16 TIME: 11:57 Assessment/Plan Assessment/Plan Chief Complaint/Hosp Course - early sepsis due to wound infection and OM of b/l heel and C diff colitis - infection of wounds of b/l heel due to MRSA, enterococcus spp and corynebacter jeikeium (grp JK); MRI showed early osteomyelitis at b/l posterior calcaneal margin. - unstageable decub of b/l heel - C diff colitis - resolving - s/p possible HCAP, Pt completed empiric cefepime (07/10/2016-07/19/2016); CXR on 07/20/2016 showed improvement. 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 It requires total 6 weeks of IV antibiotic. - Pt has h/o ATN, and thrombocytopenia probably due to linezolid. Therefore, I recommend renally dosed daptomycin, plan to complete the remaining course of treatment, through 08/25/2016 (Pt received IV vancomycin, then linezolid before) . CK=27 on 08/03/2016. Will repeat weekly - if Pt gets transferred to SNF, please order weekly CBC, BMP, CK while Pt's on IV antibiotics - continue PO vancomycin (07/15/2016-) and IV Flagyl (07/22/2016-) Problems: Consultation Date/Type/Reason Admit Date/Time July 09, 2016 at 12:24 Initial Consult Date 07/11/16 Type of Consultation: ID Referring Provider: RONNIE PATEL MD 24 HR Interval Summary Subjective hx not possible: pt non-verbal, other (demented) Exam/Review of Systems Vital Signs Vitals Vital Signs Date Time Temp Pulse Resp B/P Pulse Ox O2 Delivery O2 Flow Rate FiO2 08/04/16 11:23 Nasal Cannula 2.0 08/04/16 08:00 98.8 79 18 153/74 90 Intake and Output 08/03/16 08/03/16 08/04/16 15:00 23:00 07:00 Intake Total 100 ml 1570 ml 220 ml Output Total 550 ml 1000 ml Balance 100 ml 1020 ml -780 ml Exam Constitutional: frail, non-verbal Psych: confusion Head: atraumatic, normocephalic Eyes: nl conjunctiva, nl lids ENMT: nl external ears & nose, nl nasal mucosa & septum Respiratory: clear to auscultation, normal air movement Cardiovascular: nl pulses, regular rate and rhythm Gastrointestinal: non-tender, soft Musculoskeletal: other (wound of b/l heel, dressing has brown discharge) Extremities: No edema Neurological: confused Skin: rash or lesions (wounds of b/l heel) Results Result Diagram: 08/04/16 0559 08/04/16 0559 Results 24 hrs Laboratory Tests Test 08/04/16 05:59 White Blood Count 9.8 Red Blood Count 2.93 L Hemoglobin 8.7 L Hematocrit 26.3 L Mean Corpuscular Volume 89.8 Mean Corpuscular Hemoglobin 29.7 Mean Corpuscular Hemoglobin Concent 33.1 Red Cell Distribution Width 15.0 H Platelet Count 76 L Mean Platelet Volume 10.8 H Neutrophils % 74.4 Lymphocytes % 12.5 L Monocytes % 7.4 Eosinophils % 5.2 Basophils % 0.2 Nucleated Red Blood Cells % 0.0 Neutrophils # 7.3 Lymphocytes # 1.2 Monocytes # 0.7 Eosinophils # 0.5 Basophils # 0.0 Nucleated Red Blood Cells # 0.0 Sodium Level 148 H Potassium Level 3.0 L Chloride Level 120 H Carbon Dioxide Level 20 L Anion Gap 11 Blood Urea Nitrogen 57 H Creatinine 3.06 H Glucose Level 110 Calcium Level 7.5 L Medications Medications Current Medications Acetaminophen (Tylenol Tab) 500 mg Q6H PRN PO PAIN AND OR ELEVATED TEMP; Start 07/09/16 at 20:30 Ondansetron HCl (Zofran Inj) 4 mg Q6H PRN IV NAUSEA AND/OR VOMITING; Start at 20:30 Aspirin (Aspirin) 81 mg DAILY PO Last administered on 08/04/16t 08:26; Admin Dose 81 MG; Start 07/10/16 at 09:00 Benztropine Mesylate (Cogentin) 1 mg BID PO Last administered on 08/04/16 08: 27; Admin Dose 1 MG; Start 07/09/16 at 21:00 Finasteride (Proscar) 5 mg DAILY PO Last administered on 08/04/16 08:27; Admin Dose 5 MG; Start 07/10/16 at 09:00 Acetaminophen/ Hydrocodone Bitart ([place] (5/325)) 1 tab Q4 PRN PO SEVERE PAIN LEVEL 7-10 Last administered on 07/15/16 16:21; Admin Dose 1 TAB; Start at 20:30 Latanoprost (Xalatan) 1 drop QHS BOTH EYES Last administered on 08/03/16 21:45 ; Admin Dose 1 DROP; Start 07/09/16 at 21:00 Multivitamins Therapeutic (Theragran) 1 tab DAILY PO Last administered on 08:25; Admin Dose 1 TAB; Start 07/10/16 at 09:00 Olanzapine (Zyprexa) 5 mg QHS PO Last administered on 08/03/16 21:45; Admin Dose 5 MG; Start 07/09/16 at 21:00 Zinc Sulfate (Zinc Sulfate) 220 mg DAILY PO Last administered on 08/04/16 08: 26; Admin Dose 220 MG; Start 07/10/16 at 09:00 Acetaminophen (Tylenol Supp) 650 mg Q6H PRN [place] ELEVATED TEMPERATURE Last administered on 07/10/16 09:51; Admin Dose 650 MG; Start 07/10/16 at 09:30 Collagenase (Santyl) 1 applic DAILY TOP Last administered on 08/04/16 08:33; Admin Dose 1 APPLIC; Start 07/10/16 at 14:00 Bisacodyl (Dulcolax) 10 mg BID PO Last administered on 08/04/16 08:28; Admin Dose 10 MG; Start 07/13/16 at 15:00 Benazepril HCl (Lotensin) 20 mg DAILY PO Last administered on 08/04/16 08:30; Admin Dose 20 MG; Start 07/16/16 at 09:00 Zolpidem Tartrate (Ambien) 2.5 mg HS PRN PO INSOMNIA; Start 07/17/16 at 19:00 Epoetin Zana (Epogen (Esrd)) 6,000 units TuThSa@17 SC Last administered on 08/02 17:12; Admin Dose 6,000 UNITS; Start 07/17/16 at 20:00 Miscellaneous Information (Pending Santyl Order For Wound Care) This patient ellis... PRN PRN XX WOUND CARE; Start 07/18/16 at 07:00 Lorazepam (Ativan) 0.5 mg Q6H PRN PO ANXEITY Last administered on 07/19/16 22: 28; Admin Dose 0.5 MG; Start 07/18/16 at 16:00 Clonidine (Catapres) 0.1 mg TID PO Last administered on 08/04/16 08:29; Admin Dose 0.1 MG; Start 07/19/16 at 09:00 Vancomycin HCl 125 mg 125 mg Q6 PO Last administered on 08/04/16 05:31; Admin Dose 125 MG; Start 07/21/16 at 19:00 Metronidazole (Flagyl 500 Mg (Pmx)) 100 ml @ 100 mls/hr Q8 IVPB Last administered on 08/04/16 05:31; Admin Dose 100 MLS/HR; Start 07/22/16 at 16:30 Lactobacillus Acidophilus/ Rhamnosus (Culturelle) 1 cap BID PO Last administered on 08/04/16 08:26; Admin Dose 1 CAP; Start 07/23/16 at 21:00 Ascorbic Acid (Vitamin C) 500 mg DAILY PO Last administered on 08/04/16 08:26 ; Admin Dose 500 MG; Start 07/26/16 at 09:00 Metoprolol Tartrate (Lopressor) 25 mg BID PO Last administered on 08/04/16 08: 31; Admin Dose 25 MG; Start 07/28/16 at 21:00 Hydralazine HCl (Apresoline) 10 mg Q4H PRN IV ELEVATED BLOOD PRESSURE Last administered on 07/29/16 14:50; Admin Dose 10 MG; Start 07/28/16 at 20:30 Nifedipine (Procardia Xl) 60 mg QAM PO Last administered on 08/04/16 08:30; Admin Dose 60 MG; Start 08/02/16 at 09:00 Nifedipine 30 mg 30 mg QHS PO Last administered on 08/03/16 21:45; Admin Dose 30 MG; Start 08/01/16 at 21:00 Daptomycin/Sodium Chloride (Cubicin/NS) 100 ml @ 200 mls/hr Q48H IVPB Last administered on 08/02/16 23:26; Admin Dose 200 MLS/HR; Start 08/02/16 at 22:00 Amlodipine Besylate (Norvasc) 10 mg DAILY PO Last administered on 08/04/16 08: 30; Admin Dose 10 MG; Start 08/03/16 at 14:00 JERO GALAN M.D. Aug 04, 2016 12:00
--- NOTE | 2016-08-04 18:07 | PN ---
Date/Time of Note Date/Time of Note DATE: 08/04/16 TIME: 18:06 Assessment/Plan VTE Prophylaxis VTE Prophylaxis Intervention: SCD's Lines/Catheters IV [facility]ter [facility]from [facility] [place] Urinary Cath still in place: Yes Reason Cath still needed: urinary retention Assessment/Plan Chief Complaint/Hosp Course Patient's continues to have diarrhea, continue IV fluids monitor electrolytes. Assessment/Plan -Hypokalemia, potassium replacement ordered, BMP tomorrow. - Bilateral heel wounds, patient is evaluated by Dr. Bell in podiatry consultation with recommendation of continue current wound care and not to proceed with debridement. - C. difficile colitis. Dr. Henderson is following an infection disease consultation. Continue oral vancomycin and intravenous metronidazole. - Colitis ulcers per colonoscopy, continue to follow-up gastroenterology recommendations. - Infected wounds on bilateral lower extremities. Continue antibiotics per ID. - Acute kidney injury on chronic kidney disease stage III. Dr. Srinivasan is following in nephrology consultation. - Acute metabolic encephalopathy, resolving. - Hypertension. Continue clonidine, Procardia and benazepril - Chronic obstructive pulmonary disease. Continue DuoNeb. - Benign prostatic hypertrophy. Continue Flomax. - Multiple decubitus ulcers present on admission. Continue local wound care, offloading. - Acute cerebrovascular accident. Continue aspirin. - Dyslipidemia. Continue Lipitor. - Dementia with behavioral disturbance. Continue Zyprexa. Further recommendations based on clinical course. Plan of care discussed with Dr. Rene. Problems: Exam/Review of Systems Vital Signs Vitals Vital Signs Date Time Temp Pulse Resp B/P Pulse Ox O2 Delivery O2 Flow Rate FiO2 08/04/16 11:23 Nasal Cannula 2.0 08/04/16 08:00 98.8 79 18 153/74 90 Intake and Output 08/03/16 08/03/16 08/04/16 15:00 23:00 07:00 Intake Total 100 ml 1570 ml 220 ml Output Total 550 ml 1000 ml Balance 100 ml 1020 ml -780 ml Exam Constitutional: alert, frail Psych: confusion Head: normocephalic Neck: supple Respiratory: normal air movement Cardiovascular: nl pulses Gastrointestinal: non-tender, soft Genitourinary - Male: other (Avila catheter) Extremities: edema Skin: other (Multiple wounds) Results Result Diagram: 08/04/16 0559 08/04/16 0559 Results 24 hrs Laboratory Tests Test 08/04/16 05:59 White Blood Count 9.8 Red Blood Count 2.93 L Hemoglobin 8.7 L Hematocrit 26.3 L Mean Corpuscular Volume 89.8 Mean Corpuscular Hemoglobin 29.7 Mean Corpuscular Hemoglobin Concent 33.1 Red Cell Distribution Width 15.0 H Platelet Count 76 L Mean Platelet Volume 10.8 H Neutrophils % 74.4 Lymphocytes % 12.5 L Monocytes % 7.4 Eosinophils % 5.2 Basophils % 0.2 Nucleated Red Blood Cells % 0.0 Neutrophils # 7.3 Lymphocytes # 1.2 Monocytes # 0.7 Eosinophils # 0.5 Basophils # 0.0 Nucleated Red Blood Cells # 0.0 Sodium Level 148 H Potassium Level 3.0 L Chloride Level 120 H Carbon Dioxide Level 20 L Anion Gap 11 Blood Urea Nitrogen 57 H Creatinine 3.06 H Glucose Level 110 Calcium Level 7.5 L Medications Medications Current Medications Acetaminophen (Tylenol Tab) 500 mg Q6H PRN PO PAIN AND OR ELEVATED TEMP; Start 07/09/16 at 20:30 Ondansetron HCl (Zofran Inj) 4 mg Q6H PRN IV NAUSEA AND/OR VOMITING; Start at 20:30 Aspirin (Aspirin) 81 mg DAILY PO Last administered on 08/04/16 08:26; Admin Dose 81 MG; Start 07/10/16 at 09:00 Benztropine Mesylate (Cogentin) 1 mg BID PO Last administered on 08/04/16 08: 27; Admin Dose 1 MG; Start 07/09/16 at 21:00 Finasteride (Proscar) 5 mg DAILY PO Last administered on 08/04/16 08:27; Admin Dose 5 MG; Start 07/10/16 at 09:00 Acetaminophen/ Hydrocodone Bitart ([place] (5/325)) 1 tab Q4 PRN PO SEVERE PAIN LEVEL 7-10 Last administered on 07/15/16 16:21; Admin Dose 1 TAB; Start at 20:30 Latanoprost (Xalatan) 1 drop QHS BOTH EYES Last administered on 08/03/16 21:45 ; Admin Dose 1 DROP; Start 07/09/16 at 21:00 Multivitamins Therapeutic (Theragran) 1 tab DAILY PO Last administered on 08:25; Admin Dose 1 TAB; Start 07/10/16 at 09:00 Olanzapine (Zyprexa) 5 mg QHS PO Last administered on 08/03/16 21:45; Admin Dose 5 MG; Start 07/09/16 at 21:00 Zinc Sulfate (Zinc Sulfate) 220 mg DAILY PO Last administered on 08/04/16 08: 26; Admin Dose 220 MG; Start 07/10/16 at 09:00 Acetaminophen (Tylenol Supp) 650 mg Q6H PRN [place] ELEVATED TEMPERATURE Last administered on 07/10/16 09:51; Admin Dose 650 MG; Start 07/10/16 at 09:30 Collagenase (Santyl) 1 applic DAILY TOP Last administered on 08/04/16 08:33; Admin Dose 1 APPLIC; Start 07/10/16 at 14:00 Bisacodyl (Dulcolax) 10 mg BID PO Last administered on 08/04/16 08:28; Admin Dose 10 MG; Start 07/13/16 at 15:00 Benazepril HCl (Lotensin) 20 mg DAILY PO Last administered on 08/04/16 08:30; Admin Dose 20 MG; Start 07/16/16 at 09:00 Zolpidem Tartrate (Ambien) 2.5 mg HS PRN PO INSOMNIA; Start 07/17/16 at 19:00 Epoetin Zana (Epogen (Esrd)) 6,000 units TuThSa@17 SC Last administered on 08/02 17:12; Admin Dose 6,000 UNITS; Start 07/17/16 at 20:00 Miscellaneous Information (Pending Santyl Order For Wound Care) This patient ellis... PRN PRN XX WOUND CARE; Start 07/18/16 at 07:00 Lorazepam (Ativan) 0.5 mg Q6H PRN PO ANXEITY Last administered on 07/19/16 22: 28; Admin Dose 0.5 MG; Start 07/18/16 at 16:00 Clonidine (Catapres) 0.1 mg TID PO Last administered on 08/04/16 08:29; Admin Dose 0.1 MG; Start 07/19/16 at 09:00 Vancomycin HCl 125 mg 125 mg Q6 PO Last administered on 08/04/16 17:58; Admin Dose 125 MG; Start 07/21/16 at 19:00 Metronidazole (Flagyl 500 Mg (Pmx)) 100 ml @ 100 mls/hr Q8 IVPB Last administered on 08/04/16 14:06; Admin Dose 100 MLS/HR; Start 07/22/16 at 16:30 Lactobacillus Acidophilus/ Rhamnosus (Culturelle) 1 cap BID PO Last administered on 08/04/16 08:26; Admin Dose 1 CAP; Start 07/23/16 at 21:00 Ascorbic Acid (Vitamin C) 500 mg DAILY PO Last administered on 08/04/16 08:26 ; Admin Dose 500 MG; Start 07/26/16 at 09:00 Metoprolol Tartrate (Lopressor) 25 mg BID PO Last administered on 08/04/16 08: 31; Admin Dose 25 MG; Start 07/28/16 at 21:00 Hydralazine HCl (Apresoline) 10 mg Q4H PRN IV ELEVATED BLOOD PRESSURE Last administered on 07/29/16 14:50; Admin Dose 10 MG; Start 07/28/16 at 20:30 Nifedipine (Procardia Xl) 60 mg QAM PO Last administered on 08/04/16 08:30; Admin Dose 60 MG; Start 08/02/16 at 09:00 Nifedipine 30 mg 30 mg QHS PO Last administered on 08/03/16 21:45; Admin Dose 30 MG; Start 08/01/16 at 21:00 Daptomycin/Sodium Chloride (Cubicin/NS) 100 ml @ 200 mls/hr Q48H IVPB Last administered on 08/02/16 23:26; Admin Dose 200 MLS/HR; Start 08/02/16 at 22:00 Amlodipine Besylate (Norvasc) 10 mg DAILY PO Last administered on 08/04/16 08: 30; Admin Dose 10 MG; Start 08/03/16 at 14:00 ALE MCCONNELL Aug 04, 2016 18:07
--- NOTE | 2016-08-04 18:40 | HP ---
DATE OF ADMISSION: 07/09/2016 VASCULAR SURGERY CONSULTATION Dear Doctors: Mr. Dove is a 71-year-old gentleman with a plethora of medical conditions and dementia, bedridd en with bilateral knee contractures of more than 45 degrees, who has been admitted to [facility] for multiple medical conditions that he is currently being managed. At the moment, t he patient other than taking care of his medical status, he has bilateral lower extremity ulcers emily t have been managed with our multidisciplinary team and vascular surgery consultation was obtained f or further evaluation to evaluate for possible limb salvage. REVIEW OF SYSTEMS: Unable to ascertain as the patient has baseline dementia and not able to answer clear questions. 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 PAST SURGICAL HISTORY: As recorded in his medical chart. FAMILY HISTORY: Coronary artery disease and hypertension. SOCIAL HISTORY: Patient has had a history of smoking, currently denies tobacco, alcohol or illicit drug use. PHYSICAL EXAMINATION: GENERAL: Patient is awake; however, not oriented to more than just place. HEENT: Normocephalic, atraumatic. Mucosa moist. NECK: Supple. No carotid bruit. PULMONARY: Bilateral coarse breath sounds with good airway entry. CARDIOVASCULAR: S1, S2 present. No murmurs. ABDOMEN: Soft, nontender, nondistended. Bowel sounds positive. EXTREMITIES: Right lower extremity palpable femoral pulse, nonpalpable pedal pulse. Motor, sensory limited as the patient unable to follow commands, knee contracture more than 45 degrees multiple ul cers that are addressed of the lower leg and dry. Heel ulcer with eschar and gangrene. Left lower extremity palpable femoral pulse, nonpalpable pedal pulse. Motor and sensory limited as unable to a scertain as the patient is not able to answer questions appropriately. Capillary refill about 3 to 4 seconds. There are multiple ulcers and also heel ulcer that has dressings intact and also was rem jesse. Eschar and gangrene identified. 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 The patie nt is bedridden with baseline dementia and bilateral knee contractures. There is limited vascular i ntervention not possible for our patient. Unfortunately, the patient would not be a candidate for a nc vascular intervention for any increase of perfusion. Upon evaluation of his lower extremity ultr asound. Patient does have infrainguinal disease throughout bilateral lower extremities. At the [facility] ent, the limbs does not look life threatening in terms of sepsis, significant rest pain or worsenin g wounds. Would recommend if the patient has one of the three aforementioned to undergo above knee amputation, as that would be the alternatives to his local wound care and multiple issues of his low er extremity wounds. Optimize vascular status (BP meds, diet, nutrition, exercise, sugar control, antiplatelets). Discussed findings, plan and management with the primary service. Thank you for allowing us to partake in the care of your patient. Please call with any questions. Dictated By: KARYN THEODORE/MEAGAN Conf#: [id number] DID#: [id number]
[2016-08-04] MEDS ORDERED: POTASSIUM CHLORIDE 250 ML IVPB ONE (19:30)
--- NOTE | 2016-08-04 19:34 | CONS ---
Date/Time of Note Date/Time of Note DATE: 08/04/16 TIME: 18:51 Assessment/Plan Assessment/Plan Chief Complaint/Hosp Course Serial labs continue to show stable renal fn Hct has improved prob with blood Tx carried out on 07/28 Problems: Additional Assessment/Plan Renal tierney stable, continue epo for anemia Consultation Date/Type/Reason Admit Date/Time July 09, 2016 at 12:24 Initial Consult Date 07/11/16 Type of Consultation: renal Referring Provider: RONNIE PATEL MD Exam/Review of Systems Vital Signs Vitals Vital Signs Date Time Temp Pulse Resp B/P Pulse Ox O2 Delivery O2 Flow Rate FiO2 08/04/16 11:23 Nasal Cannula 2.0 08/04/16 08:00 98.8 79 18 153/74 90 Intake and Output 08/03/16 08/03/16 08/04/16 14:59 22:59 06:59 Intake Total 1670 ml 220 ml Output Total 550 ml 1000 ml Balance 1120 ml -780 ml Exam Constitutional: other (Pt sleeping comfortably) Psych: nl mood/affect, no complaints Head: atraumatic, normocephalic Eyes: EOMI, PERRL, nl conjunctiva, nl lids, nl sclera ENMT: nl external ears & nose, nl lips & teeth, nl nasal mucosa & septum Neck: non-tender, supple Respiratory: clear to auscultation, normal air movement Cardiovascular: nl pulses, regular rate and rhythm Gastrointestinal: nl liver, spleen, non-tender, other (RN states, pt tolerating PO iet better), soft Musculoskeletal: nl extremities to inspection, nl gait and stance Extremities: normal pulses Neurological: INTERNAL MEDICINE NURSE PRACTITIONER II-XII intact, nl mental status, nl speech, nl strength Skin: nl turgor, No rash or lesions Lymph: nl lymph nodes Results Hct 26%, Creat a bit better Result Diagram: 08/04/16 0559 08/04/16 0559 Results 24 hrs Laboratory Tests Test 08/04/16 05:59 White Blood Count 9.8 Red Blood Count 2.93 L Hemoglobin 8.7 L Hematocrit 26.3 L Mean Corpuscular Volume 89.8 Mean Corpuscular Hemoglobin 29.7 Mean Corpuscular Hemoglobin Concent 33.1 Red Cell Distribution Width 15.0 H Platelet Count 76 L Mean Platelet Volume 10.8 H Neutrophils % 74.4 Lymphocytes % 12.5 L Monocytes % 7.4 Eosinophils % 5.2 Basophils % 0.2 Nucleated Red Blood Cells % 0.0 Neutrophils # 7.3 Lymphocytes # 1.2 Monocytes # 0.7 Eosinophils # 0.5 Basophils # 0.0 Nucleated Red Blood Cells # 0.0 Sodium Level 148 H Potassium Level 3.0 L Chloride Level 120 H Carbon Dioxide Level 20 L Anion Gap 11 Blood Urea Nitrogen 57 H Creatinine 3.06 H Glucose Level 110 Calcium Level 7.5 L Medications Medications Current Medications Acetaminophen (Tylenol Tab) 500 mg Q6H PRN PO PAIN AND OR ELEVATED TEMP; Start 07/09/16 at 20:30 Ondansetron HCl (Zofran Inj) 4 mg Q6H PRN IV NAUSEA AND/OR VOMITING; Start at 20:30 Aspirin (Aspirin) 81 mg DAILY PO Last administered on 08/04/16 08:26; Admin Dose 81 MG; Start 07/10/16 at 09:00 Benztropine Mesylate (Cogentin) 1 mg BID PO Last administered on 08/04/16 08: 27; Admin Dose 1 MG; Start 07/09/16 at 21:00 Finasteride (Proscar) 5 mg DAILY PO Last administered on 08/04/16 08:27; Admin Dose 5 MG; Start 07/10/16 at 09:00 Acetaminophen/ Hydrocodone Bitart ([place] (5/325)) 1 tab Q4 PRN PO SEVERE PAIN LEVEL 7-10 Last administered on 07/15/16 16:21; Admin Dose 1 TAB; Start at 20:30 Latanoprost (Xalatan) 1 drop QHS BOTH EYES Last administered on 08/03/16 21:45 ; Admin Dose 1 DROP; Start 07/09/16 at 21:00 Multivitamins Therapeutic (Theragran) 1 tab DAILY PO Last administered on 08:25; Admin Dose 1 TAB; Start 07/10/16 at 09:00 Olanzapine (Zyprexa) 5 mg QHS PO Last administered on 08/03/16 21:45; Admin Dose 5 MG; Start 07/09/16 at 21:00 Zinc Sulfate (Zinc Sulfate) 220 mg DAILY PO Last administered on 08/04/16 08: 26; Admin Dose 220 MG; Start 07/10/16 at 09:00 Acetaminophen (Tylenol Supp) 650 mg Q6H PRN [place] ELEVATED TEMPERATURE Last administered on 07/10/16 09:51; Admin Dose 650 MG; Start 07/10/16 at 09:30 Collagenase (Santyl) 1 applic DAILY TOP Last administered on 08/04/16 08:33; Admin Dose 1 APPLIC; Start 07/10/16 at 14:00 Bisacodyl (Dulcolax) 10 mg BID PO Last administered on 08/04/16 08:28; Admin Dose 10 MG; Start 07/13/16 at 15:00 Benazepril HCl (Lotensin) 20 mg DAILY PO Last administered on 08/04/16 08:30; Admin Dose 20 MG; Start 07/16/16 at 09:00 Zolpidem Tartrate (Ambien) 2.5 mg HS PRN PO INSOMNIA; Start 07/17/16 at 19:00 Epoetin Zana (Epogen (Esrd)) 6,000 units TuThSa@17 SC Last administered on 08/02 17:12; Admin Dose 6,000 UNITS; Start 07/17/16 at 20:00 Miscellaneous Information (Pending Santyl Order For Wound Care) This patient ellis... PRN PRN XX WOUND CARE; Start 07/18/16 at 07:00 Lorazepam (Ativan) 0.5 mg Q6H PRN PO ANXEITY Last administered on 07/19/16 22: 28; Admin Dose 0.5 MG; Start 07/18/16 at 16:00 Clonidine (Catapres) 0.1 mg TID PO Last administered on 08/04/16 08:29; Admin Dose 0.1 MG; Start 07/19/16 at 09:00 Vancomycin HCl 125 mg 125 mg Q6 PO Last administered on 08/04/16 17:58; Admin Dose 125 MG; Start 07/21/16 at 19:00 Metronidazole (Flagyl 500 Mg (Pmx)) 100 ml @ 100 mls/hr Q8 IVPB Last administered on 08/04/16 14:06; Admin Dose 100 MLS/HR; Start 07/22/16 at 16:30 Lactobacillus Acidophilus/ Rhamnosus (Culturelle) 1 cap BID PO Last administered on 08/04/16 08:26; Admin Dose 1 CAP; Start 07/23/16 at 21:00 Ascorbic Acid (Vitamin C) 500 mg DAILY PO Last administered on 08/04/16 08:26 ; Admin Dose 500 MG; Start 07/26/16 at 09:00 Metoprolol Tartrate (Lopressor) 25 mg BID PO Last administered on 08/04/16 08: 31; Admin Dose 25 MG; Start 07/28/16 at 21:00 Hydralazine HCl (Apresoline) 10 mg Q4H PRN IV ELEVATED BLOOD PRESSURE Last administered on 07/29/16 14:50; Admin Dose 10 MG; Start 07/28/16 at 20:30 Nifedipine (Procardia Xl) 60 mg QAM PO Last administered on 08/04/16 08:30; Admin Dose 60 MG; Start 08/02/16 at 09:00 Nifedipine 30 mg 30 mg QHS PO Last administered on 08/03/16 21:45; Admin Dose 30 MG; Start 08/01/16 at 21:00 Daptomycin/Sodium Chloride (Cubicin/NS) 100 ml @ 200 mls/hr Q48H IVPB Last administered on 08/02/16 23:26; Admin Dose 200 MLS/HR; Start 08/02/16 at 22:00 Amlodipine Besylate 10 mg 10 mg DAILY PO Last administered on 08/04/16 08:30; Admin Dose 10 MG; Start 08/03/16 at 14:00 Potassium Chloride (KCl 40 MEQ/250 ML NS) 250 ml @ 62.5 mls/hr ONCE ONCE IVPB ; Start 08/04/16 at 19:30; Stop 08/04/16 at 23:29 JUANA AYALA MD Aug 04, 2016 19:34
[2016-08-04 20:00] VITALS: BP 129/60; RESP 20
[2016-08-04] MEDS: LATANOPROST 0.005% 2.5 ML OPH BOTH EYES SCH (20:54)
[2016-08-04] MEDS: OLANZAPINE 5 MG TAB PO SCH (20:55)
[2016-08-04] MEDS: DAPTOMYCIN 470 MG in SOD CHLORIDE 0.9% 100 ML IVPB SCH (22:47)
[2016-08-05] MEDS: VANCOMYCIN HCL 250 MG/5ML POSYG PO SCH ×4 (01:13→18:16)
[2016-08-05 06:26] LABS: ADD SCAN DIFF NO
[2016-08-05 06:28] LABS: ABNORMAL IP MESSAGE 1; BASOPHILS % 0.1 % (0.0-2.0); EOSINOPHILS # 0.7 10^3/ul (0.0-0.5); EOSINOPHILS % 7.1 % (0.0-7.0); HEMATOCRIT 26.5 % (42.0-52.0); HEMOGLOBIN 8.7 g/dl (14.0-18.0); LYMPHOCYTES # 1.3 10^3/ul (0.8-2.9); LYMPHOCYTES % 12.8 % (15.0-51.0); MEAN CORPUSCULAR HEMOGLOBIN 29.3 pg (29.0-33.0); MEAN CORPUSCULAR HGB CONC 32.8 g/dl (32.0-37.0); MEAN CORPUSCULAR VOLUME 89.2 fl (82.0-101.0); MEAN PLATELET VOLUME 10.9 fl (7.4-10.4); MONOCYTE # 0.9 10^3/ul (0.3-0.9); MONOCYTES % 9.3 % (0.0-11.0); NEUTROPHIL # 6.9 10^3/ul (1.6-7.5); NEUTROPHILS % 70.2 % (39.0-77.0); PLATELET COUNT 78 10^3/UL (140-415); RED BLOOD COUNT 2.97 10^6/ul (4.70-6.10); RED CELL DISTRIBUTION WIDTH 15.1 % (11.5-14.5); WHITE BLOOD COUNT 9.8 10^3/ul (4.8-10.8)
[2016-08-05] MEDS: metroNIDAZOLE 500 MG/NS (PMX) 100 ML IVPB SCH ×3 (06:29→21:21)
[2016-08-05 07:12] LABS: CALCIUM 7.6 mg/dl (8.4-10.2); CREATININE 2.96 mg/dl (0.61-1.24); POTASSIUM 3.1 mmol/L (3.5-5.1)
--- NOTE | 2016-08-05 07:29 | PN ---
DATE: 08/04/2016 FOLLOWUP PROGRESS NOTE SUBJECTIVE: Actually, there is limited communication, though the patient is awake and alert and is comfortable. OBJECTIVE: VITAL SIGNS: Temperature 98.1, heart rate 79, respirations 18, blood pressure _ __110_/74, saturation __96_% on 2 liter nasal cannula. LABORATORY DATA: WBC 9800 with 74% neutrophils today, platelets have dropped to 76. Hemoglobin is 8.7, hematocrit 26.3. Sodium 148, potassium 3, BUN 57, creatinine 3.06, calcium is 7.5. PHYSICAL EXAMINATION: ABDOMEN: Soft. EXTREMITIES: Legs with no calf tenderness. SKIN: Sacrococcygeal wound is in healing process. ASSESSMENT: At this time he has stage 1 and stage 2 sacrococyheal pressure ulcer . He has bilateral heel unstageable pressure wound with black eschar areas with radiologic evidence of early osteomyelitis. Infectious disease colleagues are aware of this and will treat the patient accordingly as per their notes. RECOMMENDATIONS: continue local tr. of sacral wound. Also, local treatment of bilateral heel pressure ulcers. Dr. Bell, the podiatric surgeon, is going to follow the patient. Dictated By: LISSETH THORPE MD PS/NTS Conf#: [id number] DID#: [id number] CC: RONNIE PATEL MD;*EndCC* MTDD
[2016-08-05 07:31] VITALS: BP 147/67; RESP 18
[2016-08-05] MEDS: PANTOPRAZOLE (EC) 40 MG TAB PO SCH (08:00)
--- NOTE | 2016-08-05 08:53 | CONS ---
Date/Time of Note Date/Time of Note DATE: 08/05/16 TIME: 08:51 Assessment/Plan Assessment/Plan Additional Assessment/Plan 1. Preoperative evaluation prior to debridement of heel decubitus ulcers.- negative trop x 3/NL EF by echo this admit with no sig contraindicated valve lesions. Ok to proceed to OR on BB continue pre-post op without further non- invasive eval at moderate risk - stable 2. Hypertension- labile, in mid 140s now - reasonable 3. Abnormal electrocardiogram with anteroseptal Q's and normal ejection fraction by echo this admit- no CP now, no intervention palnned. 4. Clostridium difficile Colitis. 5. Renal failure. 6. Encephalopathy. 7. Chronic obstructive pulmonary disease.- no wheezing by exam, 8. History of cerebrovascular accident- supportive rx now. 9. Dyslipidemia. 10. Dementia. 11. Anemia. 12. Leukocytosis. 12. Coagulopathy. Consultation Date/Type/Reason Admit Date/Time July 09, 2016 at 12:24 Initial Consult Date 07/26/16 Type of Consultation: renal Referring Provider: RONNIE PATEL MD 24 HR Interval Summary Free Text/Dictation NO acut e events - off tele - reasonable BP Rx. ROS: No fever, no chills, no nausea, no vomiting, no diarrhea/constipation No recent weight changes No chest pain, no PND, no orthopnea No dizziness, blurred vision No thirst, no heat or cold intolerance Exam/Review of Systems Vital Signs Vitals Vital Signs Date Time Temp Pulse Resp B/P Pulse Ox O2 Delivery O2 Flow Rate FiO2 08/05/16 07:31 98.6 19 18 147/67 90 08/04/16 20:00 Nasal Cannula 2.0 Intake and Output 08/04/16 08/04/16 08/05/16 15:00 23:00 07:00 Intake Total 940 ml 790 ml Output Total 550 ml 800 ml Balance 390 ml -10 ml Exam General: WN/WD/NAD, AOx 1 - confused HEENT: Unicetric/atraumatic/EOMI (does not follow commands) NECK: JVD elevated, no thyromegaly Lymph: no lymphadenopathy HEART: regular with no S3, II/ systolic murmur at apex LUNGS: Coarse sounds ABD: soft, NT, ND, +BS : Intact Neuro: h/o CVA SKIN: chronic changes EXT: trace edema Results Result Diagram: 08/05/16 0550 08/05/16 0550 Results 24 hrs Laboratory Tests Test 08/05/16 05:50 White Blood Count 9.8 Red Blood Count 2.97 L Hemoglobin 8.7 L Hematocrit 26.5 L Mean Corpuscular Volume 89.2 Mean Corpuscular Hemoglobin 29.3 Mean Corpuscular Hemoglobin Concent 32.8 Red Cell Distribution Width 15.1 H Platelet Count 78 L Mean Platelet Volume 10.9 H Neutrophils % 70.2 Lymphocytes % 12.8 L Monocytes % 9.3 Eosinophils % 7.1 H Basophils % 0.1 Nucleated Red Blood Cells % 0.0 Neutrophils # 6.9 Lymphocytes # 1.3 Monocytes # 0.9 Eosinophils # 0.7 H Basophils # 0.0 Nucleated Red Blood Cells # 0.0 Sodium Level 153 H Potassium Level 3.1 L Chloride Level 123 H Carbon Dioxide Level 20 L Anion Gap 13 Blood Urea Nitrogen 54 H Creatinine 2.96 H Glucose Level 80 Calcium Level 7.6 L Medications Medications Current Medications Acetaminophen (Tylenol Tab) 500 mg Q6H PRN PO PAIN AND OR ELEVATED TEMP; Start 07/09/16 at 20:30 Ondansetron HCl (Zofran Inj) 4 mg Q6H PRN IV NAUSEA AND/OR VOMITING; Start at 20:30 Aspirin (Aspirin) 81 mg DAILY PO Last administered on 08/04/16 08:26; Admin Dose 81 MG; Start 07/10/16 at 09:00 Benztropine Mesylate (Cogentin) 1 mg BID PO Last administered on 08/04/16 20: 55; Admin Dose 1 MG; Start 07/09/16 at 21:00 Finasteride (Proscar) 5 mg DAILY PO Last administered on 08/04/16 08:27; Admin Dose 5 MG; Start 07/10/16 at 09:00 Acetaminophen/ Hydrocodone Bitart ([place] (5/325)) 1 tab Q4 PRN PO SEVERE PAIN LEVEL 7-10 Last administered on 07/15/16 16:21; Admin Dose 1 TAB; Start at 20:30 Latanoprost (Xalatan) 1 drop QHS BOTH EYES Last administered on 08/04/16 20:54 ; Admin Dose 1 DROP; Start 07/09/16 at 21:00 Multivitamins Therapeutic (Theragran) 1 tab DAILY PO Last administered on 08:25; Admin Dose 1 TAB; Start 07/10/16 at 09:00 Olanzapine (Zyprexa) 5 mg QHS PO Last administered on 08/04/16 20:55; Admin Dose 5 MG; Start 07/09/16 at 21:00 Zinc Sulfate (Zinc Sulfate) 220 mg DAILY PO Last administered on 08/04/16 08: 26; Admin Dose 220 MG; Start 07/10/16 at 09:00 Acetaminophen (Tylenol Supp) 650 mg Q6H PRN [place] ELEVATED TEMPERATURE Last administered on 07/10/16 09:51; Admin Dose 650 MG; Start 07/10/16 at 09:30 Collagenase (Santyl) 1 applic DAILY TOP Last administered on 08/04/16 08:33; Admin Dose 1 APPLIC; Start 07/10/16 at 14:00 Bisacodyl (Dulcolax) 10 mg BID PO Last administered on 08/04/16 20:55; Admin Dose 10 MG; Start 07/13/16 at 15:00 Benazepril HCl (Lotensin) 20 mg DAILY PO Last administered on 08/04/16 08:30; Admin Dose 20 MG; Start 07/16/16 at 09:00 Zolpidem Tartrate (Ambien) 2.5 mg HS PRN PO INSOMNIA; Start 07/17/16 at 19:00 Epoetin Zana (Epogen (Esrd)) 6,000 units TuThSa@17 SC Last administered on 08/02 17:12; Admin Dose 6,000 UNITS; Start 07/17/16 at 20:00 Miscellaneous Information (Pending Santyl Order For Wound Care) This patient ellis... PRN PRN XX WOUND CARE; Start 07/18/16 at 07:00 Lorazepam (Ativan) 0.5 mg Q6H PRN PO ANXEITY Last administered on 07/19/16 22: 28; Admin Dose 0.5 MG; Start 07/18/16 at 16:00 Clonidine (Catapres) 0.1 mg TID PO Last administered on 08/04/16 20:56; Admin Dose 0.1 MG; Start 07/19/16 at 09:00 Vancomycin HCl 125 mg 125 mg Q6 PO Last administered on 08/05/16 06:29; Admin Dose 125 MG; Start 07/21/16 at 19:00 Metronidazole (Flagyl 500 Mg (Pmx)) 100 ml @ 100 mls/hr Q8 IVPB Last administered on 08/05/16 06:29; Admin Dose 100 MLS/HR; Start 07/22/16 at 16:30 Lactobacillus Acidophilus/ Rhamnosus (Culturelle) 1 cap BID PO Last administered on 08/04/16 20:55; Admin Dose 1 CAP; Start 07/23/16 at 21:00 Ascorbic Acid (Vitamin C) 500 mg DAILY PO Last administered on 08/04/16 08:26 ; Admin Dose 500 MG; Start 07/26/16 at 09:00 Metoprolol Tartrate (Lopressor) 25 mg BID PO Last administered on 08/04/16 20: 57; Admin Dose 25 MG; Start 07/28/16 at 21:00 Hydralazine HCl (Apresoline) 10 mg Q4H PRN IV ELEVATED BLOOD PRESSURE Last administered on 07/29/16 14:50; Admin Dose 10 MG; Start 07/28/16 at 20:30 Nifedipine (Procardia Xl) 60 mg QAM PO Last administered on 08/04/16 08:30; Admin Dose 60 MG; Start 08/02/16 at 09:00 Nifedipine 30 mg 30 mg QHS PO Last administered on 08/04/16 20:56; Admin Dose 30 MG; Start 08/01/16 at 21:00 Daptomycin/Sodium Chloride (Cubicin/NS) 100 ml @ 200 mls/hr Q48H IVPB Last administered on 08/04/16 22:47; Admin Dose 200 MLS/HR; Start 08/02/16 at 22:00 Amlodipine Besylate (Norvasc) 10 mg DAILY PO Last administered on 08/04/16 08: 30; Admin Dose 10 MG; Start 08/03/16 at 14:00 ADITYA STANFORD MD Aug 05, 2016 08:53
[2016-08-05] MEDS: BISACODYL (EC) 5 MG TAB PO SCH ×2 (09:48→21:21)
[2016-08-05] MEDS: FINASTERIDE 5 MG TAB PO SCH (09:48)
[2016-08-05] MEDS: ZINC SULFATE 220 MG CAP PO SCH (09:48)
[2016-08-05] MEDS: BENAZEPRIL 20 MG TAB PO SCH (09:48)
[2016-08-05] MEDS: BENZTROPINE 1 MG TAB PO SCH ×2 (09:48→21:21)
[2016-08-05] MEDS: LACTOBACILLUS RHAMNOSUS CAP PO SCH ×2 (09:48→21:21)
[2016-08-05] MEDS: ASPIRIN 81 MG TAB PO SCH (09:48)
[2016-08-05] MEDS: ASCORBIC ACID 500 MG TAB PO SCH (09:48)
[2016-08-05] MEDS: METOPROLOL 25 MG TAB PO SCH ×2 (09:49→21:22)
[2016-08-05] MEDS: MULTIVITAMINS THERAPEUTIC TAB PO SCH (09:50)
[2016-08-05] MEDS: NIFEdipine (XL) 30 MG TAB PO SCH ×2 (09:50→21:22)
[2016-08-05] MEDS: AMLODIPINE 10 MG TAB PO SCH (09:50)
[2016-08-05] MEDS: CALCIUM CARBONATE 750 MG CHEW TAB PO SCH ×3 (09:50→18:23)
--- NOTE | 2016-08-05 11:55 | CONS ---
Date/Time of Note Date/Time of Note DATE: 08/05/16 TIME: 11:54 Assessment/Plan Assessment/Plan Chief Complaint/Hosp Course - early sepsis due to wound infection and OM of b/l heel and C diff colitis - infection of wounds of b/l heel due to MRSA, enterococcus spp and corynebacter jeikeium (grp JK); MRI showed early osteomyelitis at b/l posterior calcaneal margin. - unstageable decub of b/l heel - C diff colitis - resolving - s/p possible HCAP, Pt completed empiric cefepime (07/10/2016-07/19/2016); CXR on 07/20/2016 showed improvement. 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 It requires total 6 weeks of IV antibiotic. - Pt has h/o ATN, and thrombocytopenia probably due to linezolid. Therefore, I recommend renally dosed daptomycin, plan to complete the remaining course of treatment, through 08/25/2016 (Pt received IV vancomycin, then linezolid before) . CK=27 on 08/03/2016. Will repeat weekly - if Pt gets transferred to SNF, please order weekly CBC, BMP, CK while Pt's on IV antibiotics - continue PO vancomycin (07/15/2016-) and IV Flagyl (07/22/2016-) Problems: Consultation Date/Type/Reason Admit Date/Time July 09, 2016 at 12:24 Initial Consult Date 07/11/16 Type of Consultation: ID Referring Provider: RONNIE PATEL MD 24 HR Interval Summary Subjective hx not possible: pt non-verbal Exam/Review of Systems Vital Signs Vitals Vital Signs Date Time Temp Pulse Resp B/P Pulse Ox O2 Delivery O2 Flow Rate FiO2 08/05/16 07:31 98.6 19 18 147/67 90 08/04/16 20:00 Nasal Cannula 2.0 Intake and Output 08/04/16 08/04/16 08/05/16 15:00 23:00 07:00 Intake Total 940 ml 790 ml Output Total 550 ml 800 ml Balance 390 ml -10 ml Exam Constitutional: frail, non-verbal Psych: confusion Head: atraumatic, normocephalic Eyes: nl conjunctiva, nl lids ENMT: nl external ears & nose, nl nasal mucosa & septum Respiratory: diminished breath sounds Cardiovascular: other (Pt did not allow the exam (body position)) Gastrointestinal: other (Pt did not allow the exam (body position)) Extremities: No edema Neurological: confused Skin: rash or lesions (eschar on devitalize tissue on b/l heel, less TTP, non purulent) Results Result Diagram: 08/05/16 0550 08/05/16 0550 Results 24 hrs Laboratory Tests Test 08/05/16 05:50 White Blood Count 9.8 Red Blood Count 2.97 L Hemoglobin 8.7 L Hematocrit 26.5 L Mean Corpuscular Volume 89.2 Mean Corpuscular Hemoglobin 29.3 Mean Corpuscular Hemoglobin Concent 32.8 Red Cell Distribution Width 15.1 H Platelet Count 78 L Mean Platelet Volume 10.9 H Neutrophils % 70.2 Lymphocytes % 12.8 L Monocytes % 9.3 Eosinophils % 7.1 H Basophils % 0.1 Nucleated Red Blood Cells % 0.0 Neutrophils # 6.9 Lymphocytes # 1.3 Monocytes # 0.9 Eosinophils # 0.7 H Basophils # 0.0 Nucleated Red Blood Cells # 0.0 Sodium Level 153 H Potassium Level 3.1 L Chloride Level 123 H Carbon Dioxide Level 20 L Anion Gap 13 Blood Urea Nitrogen 54 H Creatinine 2.96 H Glucose Level 80 Calcium Level 7.6 L Medications Medications Current Medications Acetaminophen (Tylenol Tab) 500 mg Q6H PRN PO PAIN AND OR ELEVATED TEMP; Start 07/09/16 at 20:30 Ondansetron HCl (Zofran Inj) 4 mg Q6H PRN IV NAUSEA AND/OR VOMITING; Start at 20:30 Aspirin (Aspirin) 81 mg DAILY PO Last administered on 08/05/16t 09:48; Admin Dose 81 MG; Start 07/10/16 at 09:00 Benztropine Mesylate (Cogentin) 1 mg BID PO Last administered on 08/05/16 09: 48; Admin Dose 1 MG; Start 07/09/16 at 21:00 Finasteride (Proscar) 5 mg DAILY PO Last administered on 08/05/16 09:48; Admin Dose 5 MG; Start 07/10/16 at 09:00 Acetaminophen/ Hydrocodone Bitart ([place] (5/325)) 1 tab Q4 PRN PO SEVERE PAIN LEVEL 7-10 Last administered on 07/15/16 16:21; Admin Dose 1 TAB; Start at 20:30 Latanoprost (Xalatan) 1 drop QHS BOTH EYES Last administered on 08/04/16 20:54 ; Admin Dose 1 DROP; Start 07/09/16 at 21:00 Multivitamins Therapeutic (Theragran) 1 tab DAILY PO Last administered on 09:50; Admin Dose 1 TAB; Start 07/10/16 at 09:00 Olanzapine (Zyprexa) 5 mg QHS PO Last administered on 08/04/16 20:55; Admin Dose 5 MG; Start 07/09/16 at 21:00 Zinc Sulfate (Zinc Sulfate) 220 mg DAILY PO Last administered on 08/05/16 09: 48; Admin Dose 220 MG; Start 07/10/16 at 09:00 Acetaminophen (Tylenol Supp) 650 mg Q6H PRN [place] ELEVATED TEMPERATURE Last administered on 07/10/16 09:51; Admin Dose 650 MG; Start 07/10/16 at 09:30 Collagenase (Santyl) 1 applic DAILY TOP Last administered on 08/04/16 08:33; Admin Dose 1 APPLIC; Start 07/10/16 at 14:00 Bisacodyl (Dulcolax) 10 mg BID PO Last administered on 08/05/16 09:48; Admin Dose 10 MG; Start 07/13/16 at 15:00 Benazepril HCl (Lotensin) 20 mg DAILY PO Last administered on 08/05/16 09:48; Admin Dose 20 MG; Start 07/16/16 at 09:00 Zolpidem Tartrate (Ambien) 2.5 mg HS PRN PO INSOMNIA; Start 07/17/16 at 19:00 Epoetin Zana (Epogen (Esrd)) 6,000 units TuThSa@17 SC Last administered on 08/02 17:12; Admin Dose 6,000 UNITS; Start 07/17/16 at 20:00 Miscellaneous Information (Pending Santyl Order For Wound Care) This patient ellis... PRN PRN XX WOUND CARE; Start 07/18/16 at 07:00 Lorazepam (Ativan) 0.5 mg Q6H PRN PO ANXEITY Last administered on 07/19/16 22: 28; Admin Dose 0.5 MG; Start 07/18/16 at 16:00 Clonidine (Catapres) 0.1 mg TID PO Last administered on 08/05/16 09:49; Admin Dose 0.1 MG; Start 07/19/16 at 09:00 Vancomycin HCl 125 mg 125 mg Q6 PO Last administered on 08/05/16 06:29; Admin Dose 125 MG; Start 07/21/16 at 19:00 Metronidazole (Flagyl 500 Mg (Pmx)) 100 ml @ 100 mls/hr Q8 IVPB Last administered on 08/05/16 06:29; Admin Dose 100 MLS/HR; Start 07/22/16 at 16:30 Lactobacillus Acidophilus/ Rhamnosus (Culturelle) 1 cap BID PO Last administered on 08/05/16 09:48; Admin Dose 1 CAP; Start 07/23/16 at 21:00 Ascorbic Acid (Vitamin C) 500 mg DAILY PO Last administered on 08/05/16 09:48 ; Admin Dose 500 MG; Start 07/26/16 at 09:00 Metoprolol Tartrate (Lopressor) 25 mg BID PO Last administered on 08/05/16 09: 49; Admin Dose 25 MG; Start 07/28/16 at 21:00 Hydralazine HCl (Apresoline) 10 mg Q4H PRN IV ELEVATED BLOOD PRESSURE Last administered on 07/29/16 14:50; Admin Dose 10 MG; Start 07/28/16 at 20:30 Nifedipine (Procardia Xl) 60 mg QAM PO Last administered on 08/05/16 09:50; Admin Dose 60 MG; Start 08/02/16 at 09:00 Nifedipine 30 mg 30 mg QHS PO Last administered on 08/04/16 20:56; Admin Dose 30 MG; Start 08/01/16 at 21:00 Daptomycin/Sodium Chloride (Cubicin/NS) 100 ml @ 200 mls/hr Q48H IVPB Last administered on 08/04/16 22:47; Admin Dose 200 MLS/HR; Start 08/02/16 at 22:00 Amlodipine Besylate (Norvasc) 10 mg DAILY PO Last administered on 08/05/16 09: 50; Admin Dose 10 MG; Start 08/03/16 at 14:00 JERO GALAN M.D. Aug 05, 2016 11:55
--- NOTE | 2016-08-05 12:06 | CONS ---
Date/Time of Note Date/Time of Note DATE: 08/05/16 TIME: 12:05 Assessment/Plan Assessment/Plan Additional Assessment/Plan 1. Acute kidney injury, Pre- Renal R/o ATN, Avila no signs of obstructive Uropathy, Hx of BPH.- Non Oliguric, Resolvd 2. Hypertension. Normotensive at this time. 3. Chronic obstructive pulmonary disease. 4. Benign prostatic hypertrophy. 5. Loculated pleural effusion. 6. Multiple decubiti 7. Cerebrovascular accident. 8. Dyslipidemia. 9. Dementia with behavioral disturbance. 10. Metabolic Acidosis-stable 11. Hypernatremia 12. CKD Stage IV 13. Hypokalemia Renal function is stable Pt is non oliguric, Increase free water intake Will order gentle IVF, D5W with KCL Repeat Chem in am. Consultation Date/Type/Reason Admit Date/Time July 09, 2016 at 12:24 Type of Consultation: renal Referring Provider: RONNIE PATEL MD 24 HR Interval Summary Free Text/Dictation No new complaints. RN Reports decreased PO intake Exam/Review of Systems Vital Signs Vitals Vital Signs Date Time Temp Pulse Resp B/P Pulse Ox O2 Delivery O2 Flow Rate FiO2 08/05/16 07:31 98.6 19 18 147/67 90 08/04/16 20:00 Nasal Cannula 2.0 Intake and Output 08/04/16 08/04/16 08/05/16 15:00 23:00 07:00 Intake Total 940 ml 790 ml Output Total 550 ml 800 ml Balance 390 ml -10 ml Exam Constitutional: alert, No distress ENMT: mucosa pink and moist Neck: No jvd Respiratory: clear to auscultation, No labored breathing Cardiovascular: edema, regular rate and rhythm Gastrointestinal: non-tender, soft Neurological: lethargic Skin: No diaphoresis Results Result Diagram: 08/05/16 0550 08/05/16 0550 Results 24 hrs Laboratory Tests Test 08/05/16 05:50 White Blood Count 9.8 Red Blood Count 2.97 L Hemoglobin 8.7 L Hematocrit 26.5 L Mean Corpuscular Volume 89.2 Mean Corpuscular Hemoglobin 29.3 Mean Corpuscular Hemoglobin Concent 32.8 Red Cell Distribution Width 15.1 H Platelet Count 78 L Mean Platelet Volume 10.9 H Neutrophils % 70.2 Lymphocytes % 12.8 L Monocytes % 9.3 Eosinophils % 7.1 H Basophils % 0.1 Nucleated Red Blood Cells % 0.0 Neutrophils # 6.9 Lymphocytes # 1.3 Monocytes # 0.9 Eosinophils # 0.7 H Basophils # 0.0 Nucleated Red Blood Cells # 0.0 Sodium Level 153 H Potassium Level 3.1 L Chloride Level 123 H Carbon Dioxide Level 20 L Anion Gap 13 Blood Urea Nitrogen 54 H Creatinine 2.96 H Glucose Level 80 Calcium Level 7.6 L Medications Medications Current Medications Acetaminophen (Tylenol Tab) 500 mg Q6H PRN PO PAIN AND OR ELEVATED TEMP; Start 07/09/16 at 20:30 Ondansetron HCl (Zofran Inj) 4 mg Q6H PRN IV NAUSEA AND/OR VOMITING; Start at 20:30 Aspirin (Aspirin) 81 mg DAILY PO Last administered on 08/05/16 09:48; Admin Dose 81 MG; Start 07/10/16 at 09:00 Benztropine Mesylate (Cogentin) 1 mg BID PO Last administered on 08/05/16 09: 48; Admin Dose 1 MG; Start 07/09/16 at 21:00 Finasteride (Proscar) 5 mg DAILY PO Last administered on 08/05/16 09:48; Admin Dose 5 MG; Start 07/10/16 at 09:00 Acetaminophen/ Hydrocodone Bitart ([place] (5/325)) 1 tab Q4 PRN PO SEVERE PAIN LEVEL 7-10 Last administered on 07/15/16 16:21; Admin Dose 1 TAB; Start at 20:30 Latanoprost (Xalatan) 1 drop QHS BOTH EYES Last administered on 08/04/16 20:54 ; Admin Dose 1 DROP; Start 07/09/16 at 21:00 Multivitamins Therapeutic (Theragran) 1 tab DAILY PO Last administered on 09:50; Admin Dose 1 TAB; Start 07/10/16 at 09:00 Olanzapine (Zyprexa) 5 mg QHS PO Last administered on 08/04/16 20:55; Admin Dose 5 MG; Start 07/09/16 at 21:00 Zinc Sulfate (Zinc Sulfate) 220 mg DAILY PO Last administered on 08/05/16 09: 48; Admin Dose 220 MG; Start 07/10/16 at 09:00 Acetaminophen (Tylenol Supp) 650 mg Q6H PRN [place] ELEVATED TEMPERATURE Last administered on 07/10/16 09:51; Admin Dose 650 MG; Start 07/10/16 at 09:30 Collagenase (Santyl) 1 applic DAILY TOP Last administered on 08/04/16 08:33; Admin Dose 1 APPLIC; Start 07/10/16 at 14:00 Bisacodyl (Dulcolax) 10 mg BID PO Last administered on 08/05/16 09:48; Admin Dose 10 MG; Start 07/13/16 at 15:00 Benazepril HCl (Lotensin) 20 mg DAILY PO Last administered on 08/05/16 09:48; Admin Dose 20 MG; Start 07/16/16 at 09:00 Zolpidem Tartrate (Ambien) 2.5 mg HS PRN PO INSOMNIA; Start 07/17/16 at 19:00 Epoetin Zana (Epogen (Esrd)) 6,000 units TuThSa@17 SC Last administered on 08/02 17:12; Admin Dose 6,000 UNITS; Start 07/17/16 at 20:00 Miscellaneous Information (Pending Santyl Order For Wound Care) This patient ellis... PRN PRN XX WOUND CARE; Start 07/18/16 at 07:00 Lorazepam (Ativan) 0.5 mg Q6H PRN PO ANXEITY Last administered on 07/19/16 22: 28; Admin Dose 0.5 MG; Start 07/18/16 at 16:00 Clonidine (Catapres) 0.1 mg TID PO Last administered on 08/05/16 09:49; Admin Dose 0.1 MG; Start 07/19/16 at 09:00 Vancomycin HCl 125 mg 125 mg Q6 PO Last administered on 08/05/16 06:29; Admin Dose 125 MG; Start 07/21/16 at 19:00 Metronidazole (Flagyl 500 Mg (Pmx)) 100 ml @ 100 mls/hr Q8 IVPB Last administered on 08/05/16 06:29; Admin Dose 100 MLS/HR; Start 07/22/16 at 16:30 Lactobacillus Acidophilus/ Rhamnosus (Culturelle) 1 cap BID PO Last administered on 08/05/16 09:48; Admin Dose 1 CAP; Start 07/23/16 at 21:00 Ascorbic Acid (Vitamin C) 500 mg DAILY PO Last administered on 08/05/16 09:48 ; Admin Dose 500 MG; Start 07/26/16 at 09:00 Metoprolol Tartrate (Lopressor) 25 mg BID PO Last administered on 08/05/16 09: 49; Admin Dose 25 MG; Start 07/28/16 at 21:00 Hydralazine HCl (Apresoline) 10 mg Q4H PRN IV ELEVATED BLOOD PRESSURE Last administered on 07/29/16 14:50; Admin Dose 10 MG; Start 07/28/16 at 20:30 Nifedipine (Procardia Xl) 60 mg QAM PO Last administered on 08/05/16 09:50; Admin Dose 60 MG; Start 08/02/16 at 09:00 Nifedipine 30 mg 30 mg QHS PO Last administered on 08/04/16 20:56; Admin Dose 30 MG; Start 08/01/16 at 21:00 Daptomycin/Sodium Chloride (Cubicin/NS) 100 ml @ 200 mls/hr Q48H IVPB Last administered on 08/04/16 22:47; Admin Dose 200 MLS/HR; Start 08/02/16 at 22:00 Amlodipine Besylate (Norvasc) 10 mg DAILY PO Last administered on 08/05/16 09: 50; Admin Dose 10 MG; Start 08/03/16 at 14:00 TACOS GREEN MD Aug 05, 2016 12:05
[2016-08-05 13:11] VITALS: BP 97/59; PULSE 69
[2016-08-05] MEDS: D5W + KCL 20 MEQ 1,000 ML IV SCH (15:56)
[2016-08-05] MEDS: COLLAGENASE 30 GM TUBE TOP SCH (18:14)
[2016-08-05] MEDS: EPOETIN 3000 UNITS/1 ML INJ (ESRD) SC SCH (18:16)
--- NOTE | 2016-08-05 18:20 | PN ---
DATE: 08/05/2016 ADDENDUM I have spoken with patient's sister, Carol, regarding the MRA results indicating early osteomyelitis of bilateral heels and need for 6 weeks of antibiotics. I also explained to her that the patient w as evaluated by Dr. Kruse who recommended above knee amputation in case patient has worsening wo und and pain. The patient has baseline dementia as well as contractures in both lower extremities. Dictated By: RONNIE PEREZ/MEAGAN Conf#: [id number] DID#: [id number]
--- NOTE | 2016-08-05 18:26 | PN ---
Date/Time of Note Date/Time of Note DATE: 08/05/16 TIME: 18:24 Assessment/Plan VTE Prophylaxis VTE Prophylaxis Intervention: SCD's Lines/Catheters IV C[facility]ter Type (from [facility]): Peripheral IV Urinary Cath still in place: Yes Reason Cath still needed: urinary retention Assessment/Plan Chief Complaint/Hosp Course Patient's continues to have diarrhea, continue IV fluids monitor electrolytes. Assessment/Plan - Osteomyelitis of bilateral heels, continue daptomycin until August 25 per ID. - Bilateral heel wounds, patient is evaluated by Dr. Bell in podiatry consultation with recommendation of continue current wound care and not to proceed with debridement. - C. difficile colitis. Dr. Henderson is following an infection disease consultation. Continue oral vancomycin and intravenous metronidazole. - Colitis ulcers per colonoscopy, continue to follow-up gastroenterology recommendations. - Infected wounds on bilateral lower extremities. Continue antibiotics per ID. - Acute kidney injury on chronic kidney disease stage III with electrolyte imbalances. Dr. Srinivasan is following in nephrology consultation. - Acute metabolic encephalopathy, resolving. - Hypertension. Continue clonidine, Procardia and benazepril - Chronic obstructive pulmonary disease. Continue DuoNeb. - Benign prostatic hypertrophy. Continue Flomax. - Multiple decubitus ulcers present on admission. Continue local wound care, offloading. - Acute cerebrovascular accident. Continue aspirin. - Dyslipidemia. Continue Lipitor. - Dementia with behavioral disturbance. Continue Zyprexa. Further recommendations based on clinical course. Plan of care discussed with Dr. Rene. Problems: Exam/Review of Systems Vital Signs Vitals Vital Signs Date Time Temp Pulse Resp B/P Pulse Ox O2 Delivery O2 Flow Rate FiO2 08/05/16 13:11 69 97/59 08/05/16 07:31 98.6 18 90 08/04/16 20:00 Nasal Cannula 2.0 Intake and Output 08/04/16 08/04/16 08/05/16 15:00 23:00 07:00 Intake Total 940 ml 790 ml Output Total 550 ml 800 ml Balance 390 ml -10 ml Exam Constitutional: alert, frail Psych: confusion Head: normocephalic Neck: supple Respiratory: normal air movement Cardiovascular: nl pulses Gastrointestinal: non-tender, soft Genitourinary - Male: other (Avila catheter) Extremities: edema Skin: other (Multiple wounds) Results Result Diagram: 08/05/16 0550 08/05/16 0550 Results 24 hrs Laboratory Tests Test 08/05/16 05:50 White Blood Count 9.8 Red Blood Count 2.97 L Hemoglobin 8.7 L Hematocrit 26.5 L Mean Corpuscular Volume 89.2 Mean Corpuscular Hemoglobin 29.3 Mean Corpuscular Hemoglobin Concent 32.8 Red Cell Distribution Width 15.1 H Platelet Count 78 L Mean Platelet Volume 10.9 H Neutrophils % 70.2 Lymphocytes % 12.8 L Monocytes % 9.3 Eosinophils % 7.1 H Basophils % 0.1 Nucleated Red Blood Cells % 0.0 Neutrophils # 6.9 Lymphocytes # 1.3 Monocytes # 0.9 Eosinophils # 0.7 H Basophils # 0.0 Nucleated Red Blood Cells # 0.0 Sodium Level 153 H Potassium Level 3.1 L Chloride Level 123 H Carbon Dioxide Level 20 L Anion Gap 13 Blood Urea Nitrogen 54 H Creatinine 2.96 H Glucose Level 80 Calcium Level 7.6 L Medications Medications Current Medications Acetaminophen (Tylenol Tab) 500 mg Q6H PRN PO PAIN AND OR ELEVATED TEMP; Start 07/09/16 at 20:30 Ondansetron HCl (Zofran Inj) 4 mg Q6H PRN IV NAUSEA AND/OR VOMITING; Start at 20:30 Aspirin (Aspirin) 81 mg DAILY PO Last administered on 08/05/16 09:48; Admin Dose 81 MG; Start 07/10/16 at 09:00 Benztropine Mesylate (Cogentin) 1 mg BID PO Last administered on 08/05/16 09: 48; Admin Dose 1 MG; Start 07/09/16 at 21:00 Finasteride (Proscar) 5 mg DAILY PO Last administered on 08/05/16 09:48; Admin Dose 5 MG; Start 07/10/16 at 09:00 Acetaminophen/ Hydrocodone Bitart ([place] (5/325)) 1 tab Q4 PRN PO SEVERE PAIN LEVEL 7-10 Last administered on 07/15/16 16:21; Admin Dose 1 TAB; Start at 20:30 Latanoprost (Xalatan) 1 drop QHS BOTH EYES Last administered on 08/04/16 20:54 ; Admin Dose 1 DROP; Start 07/09/16 at 21:00 Multivitamins Therapeutic (Theragran) 1 tab DAILY PO Last administered on 09:50; Admin Dose 1 TAB; Start 07/10/16 at 09:00 Olanzapine (Zyprexa) 5 mg QHS PO Last administered on 08/04/16 20:55; Admin Dose 5 MG; Start 07/09/16 at 21:00 Zinc Sulfate (Zinc Sulfate) 220 mg DAILY PO Last administered on 08/05/16 09: 48; Admin Dose 220 MG; Start 07/10/16 at 09:00 Acetaminophen (Tylenol Supp) 650 mg Q6H PRN [place] ELEVATED TEMPERATURE Last administered on 07/10/16 09:51; Admin Dose 650 MG; Start 07/10/16 at 09:30 Collagenase (Santyl) 1 applic DAILY TOP Last administered on 08/05/16 18:14; Admin Dose 1 APPLIC; Start 07/10/16 at 14:00 Bisacodyl (Dulcolax) 10 mg BID PO Last administered on 08/05/16 09:48; Admin Dose 10 MG; Start 07/13/16 at 15:00 Benazepril HCl (Lotensin) 20 mg DAILY PO Last administered on 08/05/16 09:48; Admin Dose 20 MG; Start 07/16/16 at 09:00 Zolpidem Tartrate (Ambien) 2.5 mg HS PRN PO INSOMNIA; Start 07/17/16 at 19:00 Epoetin Zana (Epogen (Esrd)) 6,000 units TuThSa@17 SC Last administered on 08/05 18:16; Admin Dose 6,000 UNITS; Start 07/17/16 at 20:00 Miscellaneous Information (Pending Santyl Order For Wound Care) This patient ellis... PRN PRN XX WOUND CARE; Start 07/18/16 at 07:00 Lorazepam (Ativan) 0.5 mg Q6H PRN PO ANXEITY Last administered on 07/19/16 22: 28; Admin Dose 0.5 MG; Start 07/18/16 at 16:00 Clonidine (Catapres) 0.1 mg TID PO Last administered on 08/05/16 09:49; Admin Dose 0.1 MG; Start 07/19/16 at 09:00 Vancomycin HCl 125 mg 125 mg Q6 PO Last administered on 08/05/16 18:16; Admin Dose 125 MG; Start 07/21/16 at 19:00 Metronidazole (Flagyl 500 Mg (Pmx)) 100 ml @ 100 mls/hr Q8 IVPB Last administered on 08/05/16 14:52; Admin Dose 100 MLS/HR; Start 07/22/16 at 16:30 Lactobacillus Acidophilus/ Rhamnosus (Culturelle) 1 cap BID PO Last administered on 08/05/16 09:48; Admin Dose 1 CAP; Start 07/23/16 at 21:00 Ascorbic Acid (Vitamin C) 500 mg DAILY PO Last administered on 08/05/16 09:48 ; Admin Dose 500 MG; Start 07/26/16 at 09:00 Metoprolol Tartrate (Lopressor) 25 mg BID PO Last administered on 08/05/16 09: 49; Admin Dose 25 MG; Start 07/28/16 at 21:00 Hydralazine HCl (Apresoline) 10 mg Q4H PRN IV ELEVATED BLOOD PRESSURE Last administered on 07/29/16 14:50; Admin Dose 10 MG; Start 07/28/16 at 20:30 Nifedipine (Procardia Xl) 60 mg QAM PO Last administered on 08/05/16 09:50; Admin Dose 60 MG; Start 08/02/16 at 09:00 Nifedipine 30 mg 30 mg QHS PO Last administered on 08/04/16 20:56; Admin Dose 30 MG; Start 08/01/16 at 21:00 Daptomycin/Sodium Chloride (Cubicin/NS) 100 ml @ 200 mls/hr Q48H IVPB Last administered on 08/04/16 22:47; Admin Dose 200 MLS/HR; Start 08/02/16 at 22:00 Amlodipine Besylate 10 mg 10 mg DAILY PO Last administered on 08/05/16 09:50; Admin Dose 10 MG; Start 08/03/16 at 14:00 Potassium Chloride/Dextrose (D5W + KCl 20 Meq) 1,000 ml @ 60 mls/hr [id number] IV Last administered on 08/05/16 15:56; Admin Dose 60 MLS/HR; Start 08/05/16 at 14:30 ALE MCCONNELL Aug 05, 2016 18:26
--- NOTE | 2016-08-05 18:54 | PN ---
DATE: 08/05/2016 SUBJECTIVE: I am following the patient in regard to his sacrococcygeal decubitus wound. OBJECTIVE: The eyes are open, he is awake, appears to be alert but not much of communication, only very simple commands which can be followed by the patient. He denies having any pain. OBJECTIVE: VITAL SIGNS: Temperature 98.6, heart rate 69, blood pressure 97/69, respirations 18, saturation 98% on 2 liters nasal cannula. LABORATORY DATA: WBC down to 9800 with 70% neutrophils, which is normal distribution, hemoglobin 8.7, hematocrit 26.5. Chemistry: Sodium is high at 163, potassium 3.1, low; BUN 64, creatinine 2.96. Dressings were changes along with the nurse lady. The sacrococcygeal wound is very good, nice, clean at most this is stage II. It is being treated daily with Santyl and Adaptic and on top of it we put the sponge dressing. Bilateral heel dressings also were changed by the nurse and was observing and helping her. The right black eschar is getting looser medication, especially on the lateral aspect, so Santyl ointment was applied over there and the left heel black eschar is a little bit harder yet and is firm to some extent. No obvious pus. Remembers that bilateral MRI had shown a little bilateral osteomyelitis. Patient is being treated with different antibiotics. Infectious disease recommendation is to receive antibiotics for 6 weeks. Also, the patient is being followed by Dr. Bell, the stone decorator, for the bilateral heel decubitus ulcers and eschars. PLAN: Continue to follow the patient for the sacrococcygeal wound. Dictated By: LISSETH RIVERS/MEAGAN Conf#: [id number] DID#: [id number] RAY
[2016-08-05 19:21] VITALS: BP 103/55; RESP 18
[2016-08-05] MEDS: OLANZAPINE 5 MG TAB PO SCH (21:21)
[2016-08-05] MEDS: LATANOPROST 0.005% 2.5 ML OPH BOTH EYES SCH (21:23)
[2016-08-06] MEDS: VANCOMYCIN HCL 250 MG/5ML POSYG PO SCH ×4 (00:14→18:45)
[2016-08-06] MEDS: metroNIDAZOLE 500 MG/NS (PMX) 100 ML IVPB SCH ×3 (05:35→22:41)
[2016-08-06 06:03] LABS: ADD SCAN DIFF NO
[2016-08-06 06:11] LABS: ABNORMAL IP MESSAGE 1; BASOPHILS % 0.2 % (0.0-2.0); EOSINOPHILS # 0.9 10^3/ul (0.0-0.5); EOSINOPHILS % 8.4 % (0.0-7.0); HEMATOCRIT 27.2 % (42.0-52.0); HEMOGLOBIN 8.7 g/dl (14.0-18.0); LYMPHOCYTES # 1.5 10^3/ul (0.8-2.9); LYMPHOCYTES % 14.8 % (15.0-51.0); MEAN CORPUSCULAR HEMOGLOBIN 28.5 pg (29.0-33.0); MEAN CORPUSCULAR VOLUME 89.2 fl (82.0-101.0); MEAN PLATELET VOLUME 10.9 fl (7.4-10.4); MONOCYTE # 1.4 10^3/ul (0.3-0.9); MONOCYTES % 13.4 % (0.0-11.0); NEUTROPHIL # 6.5 10^3/ul (1.6-7.5); PLATELET COUNT 94 10^3/UL (140-415); RED BLOOD COUNT 3.05 10^6/ul (4.70-6.10); RED CELL DISTRIBUTION WIDTH 15.1 % (11.5-14.5); WHITE BLOOD COUNT 10.4 10^3/ul (4.8-10.8)
[2016-08-06 06:36] LABS: CALCIUM 7.4 mg/dl (8.4-10.2); CREATININE 2.8 mg/dl (0.61-1.24)
[2016-08-06 06:51] LABS: POTASSIUM 2.9 mmol/L (3.5-5.1)
[2016-08-06] MEDS ORDERED: POTASSIUM CHLORIDE (SR) 20 MEQ TAB PO ONE (07:06)
[2016-08-06] MEDS: D5W + KCL 20 MEQ 1,000 ML IV SCH ×3 (07:10→23:50)
[2016-08-06 08:17] VITALS: BP 126/65; RESP 22
[2016-08-06] MEDS: CALCIUM CARBONATE 750 MG CHEW TAB PO SCH ×3 (08:56→18:45)
[2016-08-06] MEDS: LACTOBACILLUS RHAMNOSUS CAP PO SCH ×2 (08:57→20:20)
[2016-08-06] MEDS: PANTOPRAZOLE (EC) 40 MG TAB PO SCH (08:57)
[2016-08-06] MEDS: BISACODYL (EC) 5 MG TAB PO SCH ×2 (08:57→20:18)
[2016-08-06] MEDS: METOPROLOL 25 MG TAB PO SCH ×2 (08:57→20:20)
[2016-08-06] MEDS: BENZTROPINE 1 MG TAB PO SCH ×2 (08:58→20:18)
[2016-08-06] MEDS: NIFEdipine (XL) 30 MG TAB PO SCH ×2 (08:58→20:19)
[2016-08-06] MEDS: MULTIVITAMINS THERAPEUTIC TAB PO SCH (08:58)
[2016-08-06] MEDS: ASPIRIN 81 MG TAB PO SCH (08:58)
[2016-08-06] MEDS: AMLODIPINE 10 MG TAB PO SCH (08:58)
[2016-08-06] MEDS: ASCORBIC ACID 500 MG TAB PO SCH (08:59)
[2016-08-06] MEDS: BENAZEPRIL 20 MG TAB PO SCH (08:59)
[2016-08-06] MEDS: ZINC SULFATE 220 MG CAP PO SCH (08:59)
[2016-08-06] MEDS: FINASTERIDE 5 MG TAB PO SCH (08:59)
[2016-08-06] MEDS: COLLAGENASE 30 GM TUBE TOP SCH (09:00)
--- NOTE | 2016-08-06 10:44 | CONS ---
Date/Time of Note Date/Time of Note DATE: 08/06/16 TIME: 10:41 Assessment/Plan Assessment/Plan Chief Complaint/Hosp Course IMPRESSION: 1. Preoperative evaluation prior to debridement of heel decubitus ulcers.- negative trop x 3/NL EF by echo this admit with no sig contraindicated valve lesions. Ok to proceed to OR on BB continue pre-post op without further non- invasive eval at moderate risk 2. Hypertension-uncontrolled 3. Abnormal electrocardiogram with anteroseptal Q's and normal ejection fraction by echo this admit. 4. Clostridium difficile Colitis. 5. Renal failure. 6. Encephalopathy. 7. Chronic obstructive pulmonary disease. 8. History of cerebrovascular accident. 9. Dyslipidemia. 10. Dementia. 11. Anemia. 12. Leukocytosis. 12. Coagulopathy. Recc: -Continue asa -Continue abx's and f/u cx data -local wound care/conservative management -Continue current BB/ACEI/clonidine/procardia XL and follow labile BP closely -D/C second CCB norvasc -Follow volume status closely Problems: Consultation Date/Type/Reason Admit Date/Time July 09, 2016 at 12:24 Initial Consult Date 07/26/16 Type of Consultation: cardiology Reason for Consultation pre-op Referring Provider: RONNIE PATEL MD Exam/Review of Systems Vital Signs Vitals Vital Signs Date Time Temp Pulse Resp B/P Pulse Ox O2 Delivery O2 Flow Rate FiO2 08/06/16 08:17 98.6 74 22 126/65 86 08/04/16 20:00 Nasal Cannula 2.0 Intake and Output 08/05/16 08/05/16 08/06/16 15:00 23:00 07:00 Intake Total 1680 ml 720 ml Output Total 500 ml 640 ml Balance 1180 ml 80 ml Exam Review of Systems: CONSTITUTIONAL: No fevers, chills. PULMONARY: No sob CARDIOVASCULAR: No chest pain/palpitations GASTROINTESTINAL: No nausea/vomiting. GENITOURINARY: No hematuria/dysuria. MUSCULOSKELETAL: No myagias/arthalgias. PSYCHIATRIC: The patient denies depression. NEUROLOGIC: lethargic Constitutional: alert Psych: no complaints Head: normocephalic ENMT: mucosa pink and moist Neck: jvd (9 cm water), supple Respiratory: diminished breath sounds (at bases/B) Cardiovascular: regular rate and rhythm Gastrointestinal: non-tender, soft Musculoskeletal: muscle tone (normal) Extremities: edema (none) Neurological: other (No focal deficits) Results Result Diagram: 08/06/1635 08/06/16 0535 Results 24 hrs Laboratory Tests Test 08/06/16 05:35 White Blood Count 10.4 Red Blood Count 3.05 L Hemoglobin 8.7 L Hematocrit 27.2 L Mean Corpuscular Volume 89.2 Mean Corpuscular Hemoglobin 28.5 L Mean Corpuscular Hemoglobin Concent 32.0 Red Cell Distribution Width 15.1 H Platelet Count 94 #L Mean Platelet Volume 10.9 H Neutrophils % 62.0 Lymphocytes % 14.8 L Monocytes % 13.4 H Eosinophils % 8.4 H Basophils % 0.2 Nucleated Red Blood Cells % 0.0 Neutrophils # 6.5 Lymphocytes # 1.5 Monocytes # 1.4 H Eosinophils # 0.9 H Basophils # 0.0 Nucleated Red Blood Cells # 0.0 Sodium Level 148 H Potassium Level 2.9 *L Chloride Level 120 H Carbon Dioxide Level 19 L Anion Gap 12 Blood Urea Nitrogen 51 H Creatinine 2.80 H Glucose Level 104 Calcium Level 7.4 L Medications Medications Current Medications Acetaminophen (Tylenol Tab) 500 mg Q6H PRN PO PAIN AND OR ELEVATED TEMP; Start 07/09/16 at 20:30 Ondansetron HCl (Zofran Inj) 4 mg Q6H PRN IV NAUSEA AND/OR VOMITING; Start at 20:30 Aspirin (Aspirin) 81 mg DAILY PO Last administered on 08/06/16 08:58; Admin Dose 81 MG; Start 07/10/16 at 09:00 Benztropine Mesylate (Cogentin) 1 mg BID PO Last administered on 08/06/16 08: 58; Admin Dose 1 MG; Start 07/09/16 at 21:00 Finasteride (Proscar) 5 mg DAILY PO Last administered on 08/06/16 08:59; Admin Dose 5 MG; Start 07/10/16 at 09:00 Acetaminophen/ Hydrocodone Bitart ([place] (5/325)) 1 tab Q4 PRN PO SEVERE PAIN LEVEL 7-10 Last administered on 07/15/16 16:21; Admin Dose 1 TAB; Start at 20:30 Latanoprost (Xalatan) 1 drop QHS BOTH EYES Last administered on 08/05/16 21:23 ; Admin Dose 1 DROP; Start 07/09/16 at 21:00 Multivitamins Therapeutic (Theragran) 1 tab DAILY PO Last administered on 08:58; Admin Dose 1 TAB; Start 07/10/16 at 09:00 Olanzapine (Zyprexa) 5 mg QHS PO Last administered on 08/05/16 21:21; Admin Dose 5 MG; Start 07/09/16 at 21:00 Zinc Sulfate (Zinc Sulfate) 220 mg DAILY PO Last administered on 08/06/16 08: 59; Admin Dose 220 MG; Start 07/10/16 at 09:00 Acetaminophen (Tylenol Supp) 650 mg Q6H PRN [place] ELEVATED TEMPERATURE Last administered on 07/10/16 09:51; Admin Dose 650 MG; Start 07/10/16 at 09:30 Collagenase (Santyl) 1 applic DAILY TOP Last administered on 08/06/16 09:00; Admin Dose 1 APPLIC; Start 07/10/16 at 14:00 Bisacodyl (Dulcolax) 10 mg BID PO Last administered on 08/06/16 08:57; Admin Dose 10 MG; Start 07/13/16 at 15:00 Benazepril HCl (Lotensin) 20 mg DAILY PO Last administered on 08/06/16 08:59; Admin Dose 20 MG; Start 07/16/16 at 09:00 Zolpidem Tartrate (Ambien) 2.5 mg HS PRN PO INSOMNIA; Start 07/17/16 at 19:00 Epoetin Zana (Epogen (Esrd)) 6,000 units TuThSa@17 SC Last administered on 08/05 18:16; Admin Dose 6,000 UNITS; Start 07/17/16 at 20:00 Miscellaneous Information (Pending Santyl Order For Wound Care) This patient ellis... PRN PRN XX WOUND CARE; Start 07/18/16 at 07:00 Lorazepam (Ativan) 0.5 mg Q6H PRN PO ANXEITY Last administered on 07/19/16 22: 28; Admin Dose 0.5 MG; Start 07/18/16 at 16:00 Clonidine (Catapres) 0.1 mg TID PO Last administered on 08/05/16 21:22; Admin Dose 0.1 MG; Start 07/19/16 at 09:00 Vancomycin HCl 125 mg 125 mg Q6 PO Last administered on 08/06/16 05:44; Admin Dose 125 MG; Start 07/21/16 at 19:00 Metronidazole (Flagyl 500 Mg (Pmx)) 100 ml @ 100 mls/hr Q8 IVPB Last administered on 08/06/16 05:35; Admin Dose 100 MLS/HR; Start 07/22/16 at 16:30 Lactobacillus Acidophilus/ Rhamnosus (Culturelle) 1 cap BID PO Last administered on 08/06/16 08:57; Admin Dose 1 CAP; Start 07/23/16 at 21:00 Ascorbic Acid (Vitamin C) 500 mg DAILY PO Last administered on 08/06/16 08:59 ; Admin Dose 500 MG; Start 07/26/16 at 09:00 Metoprolol Tartrate (Lopressor) 25 mg BID PO Last administered on 08/06/16 08: 57; Admin Dose 25 MG; Start 07/28/16 at 21:00 Hydralazine HCl (Apresoline) 10 mg Q4H PRN IV ELEVATED BLOOD PRESSURE Last administered on 07/29/16 14:50; Admin Dose 10 MG; Start 07/28/16 at 20:30 Nifedipine (Procardia Xl) 60 mg QAM PO Last administered on 08/06/16 08:58; Admin Dose 60 MG; Start 08/02/16 at 09:00 Nifedipine 30 mg 30 mg QHS PO Last administered on 08/05/16 21:22; Admin Dose 30 MG; Start 08/01/16 at 21:00 Daptomycin/Sodium Chloride (Cubicin/NS) 100 ml @ 200 mls/hr Q48H IVPB Last administered on 08/04/16 22:47; Admin Dose 200 MLS/HR; Start 08/02/16 at 22:00 Amlodipine Besylate 10 mg 10 mg DAILY PO Last administered on 08/06/16 08:58; Admin Dose 10 MG; Start 08/03/16 at 14:00 Potassium Chloride/Dextrose (D5W + KCl 20 Meq) 1,000 ml @ 60 mls/hr [id number] IV Last administered on 08/05/16 15:56; Admin Dose 60 MLS/HR; Start 08/05/16 at 14:30 PACHECO COHEN Aug 06, 2016 10:44
--- NOTE | 2016-08-06 11:38 | CONS ---
Date/Time of Note Date/Time of Note DATE: 08/06/16 TIME: 11:37 Assessment/Plan Assessment/Plan Additional Assessment/Plan 1. Acute kidney injury, Pre- Renal R/o ATN, [place] no signs of obstructive Uropathy, Hx of BPH.- Non Oliguric, Resolvd 2. Hypertension. Normotensive at this time. 3. Chronic obstructive pulmonary disease. 4. Benign prostatic hypertrophy. 5. Loculated pleural effusion. 6. Multiple decubiti 7. Cerebrovascular accident. 8. Dyslipidemia. 9. Dementia with behavioral disturbance. 10. Metabolic Acidosis-stable 11. Hypernatremia 12. CKD Stage IV 13. Hypokalemia Renal function is stable Pt is non oliguric, Na improving, Supplement K Cont gentle D5W with KCL Repeat Chem in am. Consultation Date/Type/Reason Admit Date/Time July 09, 2016 at 12:24 Type of Consultation: Renal Referring Provider: RONNIE PATEL MD 24 HR Interval Summary Free Text/Dictation No new complaints Constitutional: No requiring O2 Exam/Review of Systems Vital Signs Vitals Vital Signs Date Time Temp Pulse Resp B/P Pulse Ox O2 Delivery O2 Flow Rate FiO2 08/06/16 08:17 98.6 74 22 126/65 86 08/04/16 20:00 Nasal Cannula 2.0 Intake and Output 08/05/16 08/05/16 08/06/16 15:00 23:00 07:00 Intake Total 1680 ml 720 ml Output Total 500 ml 640 ml Balance 1180 ml 80 ml Exam Constitutional: No distress ENMT: mucosa pink and moist Respiratory: crackles/rales, No labored breathing Cardiovascular: edema, regular rate and rhythm Gastrointestinal: non-tender, soft Neurological: No lethargic Skin: No diaphoresis Results Result Diagram: 08/06/16 0535 08/06/16 0535 Results 24 hrs Laboratory Tests Test 08/06/16 05:35 White Blood Count 10.4 Red Blood Count 3.05 L Hemoglobin 8.7 L Hematocrit 27.2 L Mean Corpuscular Volume 89.2 Mean Corpuscular Hemoglobin 28.5 L Mean Corpuscular Hemoglobin Concent 32.0 Red Cell Distribution Width 15.1 H Platelet Count 94 #L Mean Platelet Volume 10.9 H Neutrophils % 62.0 Lymphocytes % 14.8 L Monocytes % 13.4 H Eosinophils % 8.4 H Basophils % 0.2 Nucleated Red Blood Cells % 0.0 Neutrophils # 6.5 Lymphocytes # 1.5 Monocytes # 1.4 H Eosinophils # 0.9 H Basophils # 0.0 Nucleated Red Blood Cells # 0.0 Sodium Level 148 H Potassium Level 2.9 *L Chloride Level 120 H Carbon Dioxide Level 19 L Anion Gap 12 Blood Urea Nitrogen 51 H Creatinine 2.80 H Glucose Level 104 Calcium Level 7.4 L Medications Medications Current Medications Acetaminophen (Tylenol Tab) 500 mg Q6H PRN PO PAIN AND OR ELEVATED TEMP; Start 07/09/16 at 20:30 Ondansetron HCl (Zofran Inj) 4 mg Q6H PRN IV NAUSEA AND/OR VOMITING; Start at 20:30 Aspirin (Aspirin) 81 mg DAILY PO Last administered on 08/06/16 08:58; Admin Dose 81 MG; Start 07/10/16 at 09:00 Benztropine Mesylate (Cogentin) 1 mg BID PO Last administered on 08/06/16 08: 58; Admin Dose 1 MG; Start 07/09/16 at 21:00 Finasteride (Proscar) 5 mg DAILY PO Last administered on 08/06/16 08:59; Admin Dose 5 MG; Start 07/10/16 at 09:00 Acetaminophen/ Hydrocodone Bitart ([place] (5/325)) 1 tab Q4 PRN PO SEVERE PAIN LEVEL 7-10 Last administered on 07/15/16 16:21; Admin Dose 1 TAB; Start at 20:30 Latanoprost (Xalatan) 1 drop QHS BOTH EYES Last administered on 08/05/16 21:23 ; Admin Dose 1 DROP; Start 07/09/16 at 21:00 Multivitamins Therapeutic (Theragran) 1 tab DAILY PO Last administered on 08:58; Admin Dose 1 TAB; Start 07/10/16 at 09:00 Olanzapine (Zyprexa) 5 mg QHS PO Last administered on 08/05/16 21:21; Admin Dose 5 MG; Start 07/09/16 at 21:00 Zinc Sulfate (Zinc Sulfate) 220 mg DAILY PO Last administered on 08/06/16 08: 59; Admin Dose 220 MG; Start 07/10/16 at 09:00 Acetaminophen (Tylenol Supp) 650 mg Q6H PRN [place] ELEVATED TEMPERATURE Last administered on 07/10/16 09:51; Admin Dose 650 MG; Start 07/10/16 at 09:30 Collagenase (Santyl) 1 applic DAILY TOP Last administered on 08/06/16 09:00; Admin Dose 1 APPLIC; Start 07/10/16 at 14:00 Bisacodyl (Dulcolax) 10 mg BID PO Last administered on 08/06/16 08:57; Admin Dose 10 MG; Start 07/13/16 at 15:00 Benazepril HCl (Lotensin) 20 mg DAILY PO Last administered on 08/06/16 08:59; Admin Dose 20 MG; Start 07/16/16 at 09:00 Zolpidem Tartrate (Ambien) 2.5 mg HS PRN PO INSOMNIA; Start 07/17/16 at 19:00 Epoetin Zana (Epogen (Esrd)) 6,000 units TuThSa@17 SC Last administered on 08/05 18:16; Admin Dose 6,000 UNITS; Start 07/17/16 at 20:00 Miscellaneous Information (Pending Santyl Order For Wound Care) This patient ellis... PRN PRN XX WOUND CARE; Start 07/18/16 at 07:00 Lorazepam (Ativan) 0.5 mg Q6H PRN PO ANXEITY Last administered on 07/19/16 22: 28; Admin Dose 0.5 MG; Start 07/18/16 at 16:00 Clonidine (Catapres) 0.1 mg TID PO Last administered on 08/05/16 21:22; Admin Dose 0.1 MG; Start 07/19/16 at 09:00 Vancomycin HCl 125 mg 125 mg Q6 PO Last administered on 08/06/16 05:44; Admin Dose 125 MG; Start 07/21/16 at 19:00 Metronidazole (Flagyl 500 Mg (Pmx)) 100 ml @ 100 mls/hr Q8 IVPB Last administered on 08/06/16 05:35; Admin Dose 100 MLS/HR; Start 07/22/16 at 16:30 Lactobacillus Acidophilus/ Rhamnosus (Culturelle) 1 cap BID PO Last administered on 08/06/16 08:57; Admin Dose 1 CAP; Start 07/23/16 at 21:00 Ascorbic Acid (Vitamin C) 500 mg DAILY PO Last administered on 08/06/16 08:59 ; Admin Dose 500 MG; Start 07/26/16 at 09:00 Metoprolol Tartrate (Lopressor) 25 mg BID PO Last administered on 08/06/16 08: 57; Admin Dose 25 MG; Start 07/28/16 at 21:00 Hydralazine HCl (Apresoline) 10 mg Q4H PRN IV ELEVATED BLOOD PRESSURE Last administered on 07/29/16 14:50; Admin Dose 10 MG; Start 07/28/16 at 20:30 Nifedipine (Procardia Xl) 60 mg QAM PO Last administered on 08/06/16 08:58; Admin Dose 60 MG; Start 08/02/16 at 09:00 Nifedipine 30 mg 30 mg QHS PO Last administered on 08/05/16 21:22; Admin Dose 30 MG; Start 08/01/16 at 21:00 Daptomycin 470 mg/ Sodium Chloride 100 ml @ 200 mls/hr Q48H IVPB Last administered on 08/04/16 22:47; Admin Dose 200 MLS/HR; Start 08/02/16 at 22:00 Potassium Chloride/Dextrose (D5W + KCl 20 Meq) 1,000 ml @ 60 mls/hr [id number] IV Last administered on 08/05/16 15:56; Admin Dose 60 MLS/HR; Start 08/05/16 at 14:30 TACOS GREEN MD Aug 06, 2016 11:38
--- NOTE | 2016-08-06 12:23 | CONS ---
Date/Time of Note Date/Time of Note DATE: 08/06/16 TIME: 12:21 Assessment/Plan Assessment/Plan Chief Complaint/Hosp Course - early sepsis due to wound infection and OM of b/l heel and C diff colitis - infection of wounds of b/l heel due to MRSA, enterococcus spp and corynebacter jeikeium (grp JK); MRI showed early osteomyelitis at b/l posterior calcaneal margin. - unstageable decub of b/l heel - C diff colitis - resolving - s/p possible HCAP, Pt completed empiric cefepime (07/10/2016-07/19/2016); CXR on 07/20/2016 showed improvement. 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 It requires total 6 weeks of IV antibiotic. - continue renally dosed daptomycin through 08/25/2016 (Pt received IV vancomycin , then linezolid before). CK=27 on 08/03/2016. Will repeat weekly - if Pt gets transferred to SNF, please order weekly CBC, BMP, CK while Pt's on IV antibiotics - continue PO vancomycin (07/15/2016-) and IV Flagyl (07/22/2016-) while Pt's on IV antibiotic Problems: Consultation Date/Type/Reason Admit Date/Time July 09, 2016 at 12:24 Initial Consult Date 07/11/16 Type of Consultation: ID Referring Provider: RONNIE PATEL MD 24 HR Interval Summary Subjective hx not possible: other (demented and limited) Constitutional: other ("fine") Detailed Summary Respiratory: No shortness of breath Cardiovascular: No chest pain Gastrointestinal: diarrhea ("so and so" waving his hand), No nausea, No pain Musculoskeletal: no complaints Exam/Review of Systems Vital Signs Vitals Vital Signs Date Time Temp Pulse Resp B/P Pulse Ox O2 Delivery O2 Flow Rate FiO2 08/06/16 08:17 98.6 74 22 126/65 86 08/04/16 20:00 Nasal Cannula 2.0 Intake and Output 08/05/16 08/05/16 08/06/16 15:00 23:00 07:00 Intake Total 1680 ml 720 ml Output Total 500 ml 640 ml Balance 1180 ml 80 ml Exam Constitutional: frail Psych: confusion Head: atraumatic, normocephalic Eyes: nl conjunctiva, nl lids ENMT: nl external ears & nose, nl nasal mucosa & septum Neck: supple Musculoskeletal: swelling (b/l feet) Neurological: confused, other (demented) Skin: rash or lesions (wounds of b/l heel) Results Result Diagram: 08/06/16 0535 08/06/16 0535 Results 24 hrs Laboratory Tests Test 08/06/16 05:35 White Blood Count 10.4 Red Blood Count 3.05 L Hemoglobin 8.7 L Hematocrit 27.2 L Mean Corpuscular Volume 89.2 Mean Corpuscular Hemoglobin 28.5 L Mean Corpuscular Hemoglobin Concent 32.0 Red Cell Distribution Width 15.1 H Platelet Count 94 #L Mean Platelet Volume 10.9 H Neutrophils % 62.0 Lymphocytes % 14.8 L Monocytes % 13.4 H Eosinophils % 8.4 H Basophils % 0.2 Nucleated Red Blood Cells % 0.0 Neutrophils # 6.5 Lymphocytes # 1.5 Monocytes # 1.4 H Eosinophils # 0.9 H Basophils # 0.0 Nucleated Red Blood Cells # 0.0 Sodium Level 148 H Potassium Level 2.9 *L Chloride Level 120 H Carbon Dioxide Level 19 L Anion Gap 12 Blood Urea Nitrogen 51 H Creatinine 2.80 H Glucose Level 104 Calcium Level 7.4 L Medications Medications Current Medications Acetaminophen (Tylenol Tab) 500 mg Q6H PRN PO PAIN AND OR ELEVATED TEMP; Start 07/09/16 at 20:30 Ondansetron HCl (Zofran Inj) 4 mg Q6H PRN IV NAUSEA AND/OR VOMITING; Start at 20:30 Aspirin (Aspirin) 81 mg DAILY PO Last administered on 08/06/16t 08:58; Admin Dose 81 MG; Start 07/10/16 at 09:00 Benztropine Mesylate (Cogentin) 1 mg BID PO Last administered on 08/06/16 08: 58; Admin Dose 1 MG; Start 07/09/16 at 21:00 Finasteride (Proscar) 5 mg DAILY PO Last administered on 08/06/16 08:59; Admin Dose 5 MG; Start 07/10/16 at 09:00 Acetaminophen/ Hydrocodone Bitart ([place] (5/325)) 1 tab Q4 PRN PO SEVERE PAIN LEVEL 7-10 Last administered on 07/15/16 16:21; Admin Dose 1 TAB; Start at 20:30 Latanoprost (Xalatan) 1 drop QHS BOTH EYES Last administered on 08/05/16 21:23 ; Admin Dose 1 DROP; Start 07/09/16 at 21:00 Multivitamins Therapeutic (Theragran) 1 tab DAILY PO Last administered on 08:58; Admin Dose 1 TAB; Start 07/10/16 at 09:00 Olanzapine (Zyprexa) 5 mg QHS PO Last administered on 08/05/16 21:21; Admin Dose 5 MG; Start 07/09/16 at 21:00 Zinc Sulfate (Zinc Sulfate) 220 mg DAILY PO Last administered on 08/06/16 08: 59; Admin Dose 220 MG; Start 07/10/16 at 09:00 Acetaminophen (Tylenol Supp) 650 mg Q6H PRN [place] ELEVATED TEMPERATURE Last administered on 07/10/16 09:51; Admin Dose 650 MG; Start 07/10/16 at 09:30 Collagenase (Santyl) 1 applic DAILY TOP Last administered on 08/06/16 09:00; Admin Dose 1 APPLIC; Start 07/10/16 at 14:00 Bisacodyl (Dulcolax) 10 mg BID PO Last administered on 08/06/16 08:57; Admin Dose 10 MG; Start 07/13/16 at 15:00 Benazepril HCl (Lotensin) 20 mg DAILY PO Last administered on 08/06/16 08:59; Admin Dose 20 MG; Start 07/16/16 at 09:00 Zolpidem Tartrate (Ambien) 2.5 mg HS PRN PO INSOMNIA; Start 07/17/16 at 19:00 Epoetin Zana (Epogen (Esrd)) 6,000 units TuThSa@17 SC Last administered on 08/05 18:16; Admin Dose 6,000 UNITS; Start 07/17/16 at 20:00 Miscellaneous Information (Pending Santyl Order For Wound Care) This patient ellis... PRN PRN XX WOUND CARE; Start 07/18/16 at 07:00 Lorazepam (Ativan) 0.5 mg Q6H PRN PO ANXEITY Last administered on 07/19/16 22: 28; Admin Dose 0.5 MG; Start 07/18/16 at 16:00 Clonidine (Catapres) 0.1 mg TID PO Last administered on 08/06/16 12:07; Admin Dose 0.1 MG; Start 07/19/16 at 09:00 Vancomycin HCl 125 mg 125 mg Q6 PO Last administered on 08/06/16 12:06; Admin Dose 125 MG; Start 07/21/16 at 19:00 Metronidazole (Flagyl 500 Mg (Pmx)) 100 ml @ 100 mls/hr Q8 IVPB Last administered on 08/06/16 05:35; Admin Dose 100 MLS/HR; Start 07/22/16 at 16:30 Lactobacillus Acidophilus/ Rhamnosus (Culturelle) 1 cap BID PO Last administered on 08/06/16 08:57; Admin Dose 1 CAP; Start 07/23/16 at 21:00 Ascorbic Acid (Vitamin C) 500 mg DAILY PO Last administered on 08/06/16 08:59 ; Admin Dose 500 MG; Start 07/26/16 at 09:00 Metoprolol Tartrate (Lopressor) 25 mg BID PO Last administered on 08/06/16 08: 57; Admin Dose 25 MG; Start 07/28/16 at 21:00 Hydralazine HCl (Apresoline) 10 mg Q4H PRN IV ELEVATED BLOOD PRESSURE Last administered on 07/29/16 14:50; Admin Dose 10 MG; Start 07/28/16 at 20:30 Nifedipine (Procardia Xl) 60 mg QAM PO Last administered on 08/06/16 08:58; Admin Dose 60 MG; Start 08/02/16 at 09:00 Nifedipine 30 mg 30 mg QHS PO Last administered on 08/05/16 21:22; Admin Dose 30 MG; Start 08/01/16 at 21:00 Daptomycin 470 mg/ Sodium Chloride 100 ml @ 200 mls/hr Q48H IVPB Last administered on 08/04/16 22:47; Admin Dose 200 MLS/HR; Start 08/02/16 at 22:00 Potassium Chloride/Dextrose (D5W + KCl 20 Meq) 1,000 ml @ 60 mls/hr [id number] IV Last administered on 08/05/16 15:56; Admin Dose 60 MLS/HR; Start 08/05/16 at 14:30 JERO GALAN M.D. Aug 06, 2016 12:23
--- NOTE | 2016-08-06 14:15 | PN ---
Date/Time of Note Date/Time of Note DATE: 08/06/16 TIME: 14:14 Assessment/Plan VTE Prophylaxis VTE Prophylaxis Intervention: SCD's Lines/Catheters IV C[facility]ter Type ([facility]): Peripheral IV Urinary Cath still in place: Yes Reason Cath still needed: urinary retention Assessment/Plan Chief Complaint/Hosp Course No acute events overnight, patient remains afebrile. Discussed with case management. Assessment/Plan - Hypokalemia, potassium replaced, continue to monitor. - Osteomyelitis of bilateral heels, continue daptomycin until August 25 per ID. - Bilateral heel wounds, patient is evaluated by Dr. Bell in podiatry consultation with recommendation of continue current wound care and not to proceed with debridement. - C. difficile colitis. Dr. Henderson is following an infection disease consultation. Continue oral vancomycin and intravenous metronidazole. - Colitis ulcers per colonoscopy, continue to follow-up gastroenterology recommendations. - Infected wounds on bilateral lower extremities. Continue antibiotics per ID. - Acute kidney injury on chronic kidney disease stage III with electrolyte imbalances. Dr. Srinivasan is following in nephrology consultation. - Acute metabolic encephalopathy, resolving. - Hypertension. Continue clonidine, Procardia and benazepril - Chronic obstructive pulmonary disease. Continue DuoNeb. - Benign prostatic hypertrophy. Continue Flomax. - Multiple decubitus ulcers present on admission. Continue local wound care, offloading. - Acute cerebrovascular accident. Continue aspirin. - Dyslipidemia. Continue Lipitor. - Dementia with behavioral disturbance. Continue Zyprexa. Further recommendations based on clinical course. Plan of care discussed with Dr. Rene. Problems: Exam/Review of Systems Vital Signs Vitals Vital Signs Date Time Temp Pulse Resp B/P Pulse Ox O2 Delivery O2 Flow Rate FiO2 08/06/16 08:17 98.6 74 22 126/65 86 08/04/16 20:00 Nasal Cannula 2.0 Intake and Output 08/05/16 08/05/16 08/06/16 15:00 23:00 07:00 Intake Total 1680 ml 720 ml Output Total 500 ml 640 ml Balance 1180 ml 80 ml Exam Constitutional: alert, frail Psych: confusion Head: normocephalic Neck: supple Respiratory: normal air movement Cardiovascular: nl pulses Gastrointestinal: non-tender, soft Genitourinary - Male: other (Avila catheter) Extremities: edema Skin: other (Multiple wounds) Results Result Diagram: 08/06/16 0535 08/06/16 0535 Results 24 hrs Laboratory Tests Test 08/06/16 05:35 White Blood Count 10.4 Red Blood Count 3.05 L Hemoglobin 8.7 L Hematocrit 27.2 L Mean Corpuscular Volume 89.2 Mean Corpuscular Hemoglobin 28.5 L Mean Corpuscular Hemoglobin Concent 32.0 Red Cell Distribution Width 15.1 H Platelet Count 94 #L Mean Platelet Volume 10.9 H Neutrophils % 62.0 Lymphocytes % 14.8 L Monocytes % 13.4 H Eosinophils % 8.4 H Basophils % 0.2 Nucleated Red Blood Cells % 0.0 Neutrophils # 6.5 Lymphocytes # 1.5 Monocytes # 1.4 H Eosinophils # 0.9 H Basophils # 0.0 Nucleated Red Blood Cells # 0.0 Sodium Level 148 H Potassium Level 2.9 *L Chloride Level 120 H Carbon Dioxide Level 19 L Anion Gap 12 Blood Urea Nitrogen 51 H Creatinine 2.80 H Glucose Level 104 Calcium Level 7.4 L Medications Medications Current Medications Acetaminophen (Tylenol Tab) 500 mg Q6H PRN PO PAIN AND OR ELEVATED TEMP; Start 07/09/16 at 20:30 Ondansetron HCl (Zofran Inj) 4 mg Q6H PRN IV NAUSEA AND/OR VOMITING; Start at 20:30 Aspirin (Aspirin) 81 mg DAILY PO Last administered on 08/06/16 08:58; Admin Dose 81 MG; Start 07/10/16 at 09:00 Benztropine Mesylate (Cogentin) 1 mg BID PO Last administered on 08/06/16 08: 58; Admin Dose 1 MG; Start 07/09/16 at 21:00 Finasteride (Proscar) 5 mg DAILY PO Last administered on 08/06/16 08:59; Admin Dose 5 MG; Start 07/10/16 at 09:00 Acetaminophen/ Hydrocodone Bitart ([place] (5/325)) 1 tab Q4 PRN PO SEVERE PAIN LEVEL 7-10 Last administered on 07/15/16 16:21; Admin Dose 1 TAB; Start at 20:30 Latanoprost (Xalatan) 1 drop QHS BOTH EYES Last administered on 08/05/16 21:23 ; Admin Dose 1 DROP; Start 07/09/16 at 21:00 Multivitamins Therapeutic (Theragran) 1 tab DAILY PO Last administered on 08:58; Admin Dose 1 TAB; Start 07/10/16 at 09:00 Olanzapine (Zyprexa) 5 mg QHS PO Last administered on 08/05/16 21:21; Admin Dose 5 MG; Start 07/09/16 at 21:00 Zinc Sulfate (Zinc Sulfate) 220 mg DAILY PO Last administered on 08/06/16 08: 59; Admin Dose 220 MG; Start 07/10/16 at 09:00 Acetaminophen (Tylenol Supp) 650 mg Q6H PRN [place] ELEVATED TEMPERATURE Last administered on 07/10/16 09:51; Admin Dose 650 MG; Start 07/10/16 at 09:30 Collagenase (Santyl) 1 applic DAILY TOP Last administered on 08/06/16 09:00; Admin Dose 1 APPLIC; Start 07/10/16 at 14:00 Bisacodyl (Dulcolax) 10 mg BID PO Last administered on 08/06/16 08:57; Admin Dose 10 MG; Start 07/13/16 at 15:00 Benazepril HCl (Lotensin) 20 mg DAILY PO Last administered on 08/06/16 08:59; Admin Dose 20 MG; Start 07/16/16 at 09:00 Zolpidem Tartrate (Ambien) 2.5 mg HS PRN PO INSOMNIA; Start 07/17/16 at 19:00 Epoetin Zana (Epogen (Esrd)) 6,000 units TuThSa@17 SC Last administered on 08/05 18:16; Admin Dose 6,000 UNITS; Start 07/17/16 at 20:00 Miscellaneous Information (Pending Santyl Order For Wound Care) This patient ellis... PRN PRN XX WOUND CARE; Start 07/18/16 at 07:00 Lorazepam (Ativan) 0.5 mg Q6H PRN PO ANXEITY Last administered on 07/19/16 22: 28; Admin Dose 0.5 MG; Start 07/18/16 at 16:00 Clonidine (Catapres) 0.1 mg TID PO Last administered on 08/06/16 12:07; Admin Dose 0.1 MG; Start 07/19/16 at 09:00 Vancomycin HCl 125 mg 125 mg Q6 PO Last administered on 08/06/16 12:06; Admin Dose 125 MG; Start 07/21/16 at 19:00 Metronidazole (Flagyl 500 Mg (Pmx)) 100 ml @ 100 mls/hr Q8 IVPB Last administered on 08/06/16 13:34; Admin Dose 100 MLS/HR; Start 07/22/16 at 16:30 Lactobacillus Acidophilus/ Rhamnosus (Culturelle) 1 cap BID PO Last administered on 08/06/16 08:57; Admin Dose 1 CAP; Start 07/23/16 at 21:00 Ascorbic Acid (Vitamin C) 500 mg DAILY PO Last administered on 08/06/16 08:59 ; Admin Dose 500 MG; Start 07/26/16 at 09:00 Metoprolol Tartrate (Lopressor) 25 mg BID PO Last administered on 08/06/16 08: 57; Admin Dose 25 MG; Start 07/28/16 at 21:00 Hydralazine HCl (Apresoline) 10 mg Q4H PRN IV ELEVATED BLOOD PRESSURE Last administered on 07/29/16 14:50; Admin Dose 10 MG; Start 07/28/16 at 20:30 Nifedipine (Procardia Xl) 60 mg QAM PO Last administered on 08/06/16 08:58; Admin Dose 60 MG; Start 08/02/16 at 09:00 Nifedipine 30 mg 30 mg QHS PO Last administered on 08/05/16 21:22; Admin Dose 30 MG; Start 08/01/16 at 21:00 Daptomycin 470 mg/ Sodium Chloride 100 ml @ 200 mls/hr Q48H IVPB Last administered on 08/04/16 22:47; Admin Dose 200 MLS/HR; Start 08/02/16 at 22:00 Potassium Chloride/Dextrose (D5W + KCl 20 Meq) 1,000 ml @ 60 mls/hr [id number] IV Last administered on 08/06/16 13:34; Admin Dose 60 MLS/HR; Start 08/05/16 at 14:30 ALE MCCONNELL Aug 06, 2016 14:15
--- NOTE | 2016-08-06 14:26 | PN ---
DATE: 08/06/2016 I am following the patient for decubitus ulcer mainly in the sacrococcygeal area, but also have an e ye on the bilateral heel pressure ulcers. SUBJECTIVE: The patient is awake and alert. Eyes are open. Comfortable. Answers simple questions . Does not have any complaint, no pain, no abdominal pain. Per nurse, the patient has a good appet ite and eating all the diet. Bowel movement is okay. OBJECTIVE: VITAL SIGNS: Temperature 98.6, heart rate 74, respirations 22, blood pressure 126/65. Saturation 8 6% on 2 liters nasal cannula today, but the patient does not look in no distress. He is not cyanoti c. ABDOMEN: Soft. SKIN: Sacrococcygeal area: The wound is healing very nicely gradually, now it is a stage I and pro bably stage II. Bilateral heels as was mentioned before, there is black eschar bilaterally, worse o n the right side and part of the lateral side of the eschar is from the underlying tissue and it is necrotic and appears infected. As we know, there is bilateral early osteomyelitis of the calcaneus. LABORATORY DATA: WBC 10,400 with 62% neutrophils. Hemoglobin 8.7, hematocrit 27.2, stable. PLAN: Continue current care for the sacrococcygeal area. Also, continue current care for the bilat eral heel wounds by application of Santyl and Adaptic and wrap it around with Kerlix, putting the fe et and the ankles in the ankle protection devices. Apparently per infectious disease, the patient should receive 6 weeks of antibiotics for covering o steomyelitis. Meanwhile, still patient is receiving antibiotics for C. difficile. As was mentioned , BUN is 51, creatinine 2.80, gradually is decreasing and improving. Dictated By: LISSETH THORPE MD PS/NTS Conf#: [id number] DID#: [id number]
[2016-08-06 20:01] VITALS: BP 122/64; RESP 20
[2016-08-06] MEDS: LATANOPROST 0.005% 2.5 ML OPH BOTH EYES SCH (20:17)
[2016-08-06] MEDS: OLANZAPINE 5 MG TAB PO SCH (20:19)
[2016-08-06] MEDS: DAPTOMYCIN 470 MG in SOD CHLORIDE 0.9% 100 ML IVPB SCH (21:14)
[2016-08-07] MEDS: metroNIDAZOLE 500 MG/NS (PMX) 100 ML IVPB SCH ×3 (05:29→21:29)
[2016-08-07] MEDS: VANCOMYCIN HCL 250 MG/5ML POSYG PO SCH ×5 (05:29→23:15)
[2016-08-07 06:39] LABS: CALCIUM 7.8 mg/dl (8.4-10.2); CREATININE 2.75 mg/dl (0.61-1.24); POTASSIUM 3.3 mmol/L (3.5-5.1)
[2016-08-07 07:57] VITALS: BP 123/60; RESP 18
[2016-08-07] MEDS: ASPIRIN 81 MG TAB PO SCH (09:50)
[2016-08-07] MEDS: CALCIUM CARBONATE 750 MG CHEW TAB PO SCH ×3 (09:50→17:40)
[2016-08-07] MEDS: LACTOBACILLUS RHAMNOSUS CAP PO SCH ×2 (09:50→20:08)
[2016-08-07] MEDS: PANTOPRAZOLE (EC) 40 MG TAB PO SCH (09:50)
[2016-08-07] MEDS: ZINC SULFATE 220 MG CAP PO SCH (09:50)
[2016-08-07] MEDS: MULTIVITAMINS THERAPEUTIC TAB PO SCH (09:50)
[2016-08-07] MEDS: BISACODYL (EC) 5 MG TAB PO SCH ×2 (09:50→20:08)
[2016-08-07] MEDS: ASCORBIC ACID 500 MG TAB PO SCH (09:50)
[2016-08-07] MEDS: FINASTERIDE 5 MG TAB PO SCH (09:50)
[2016-08-07] MEDS: BENAZEPRIL 20 MG TAB PO SCH (09:51)
[2016-08-07] MEDS: METOPROLOL 25 MG TAB PO SCH ×2 (09:51→20:10)
[2016-08-07] MEDS: NIFEdipine (XL) 30 MG TAB PO SCH ×2 (09:52→20:10)
[2016-08-07] MEDS: BENZTROPINE 1 MG TAB PO SCH ×2 (09:55→20:09)
[2016-08-07] MEDS: COLLAGENASE 30 GM TUBE TOP SCH (09:55)
[2016-08-07] MEDS: D5W + KCL 20 MEQ 1,000 ML IV SCH ×2 (11:11→20:08)
[2016-08-07 12:34] VITALS: BP 91/52; PULSE 75
--- NOTE | 2016-08-07 13:13 | CONS ---
Date/Time of Note Date/Time of Note DATE: 08/07/16 TIME: 13:09 Assessment/Plan Assessment/Plan Chief Complaint/Hosp Course IMPRESSION: 1. Preoperative evaluation prior to debridement of heel decubitus ulcers.- negative trop x 3/NL EF by echo this admit with no sig contraindicated valve lesions. Ok to proceed to OR on BB continue pre-post op without further non- invasive eval at moderate risk 2. Hypertension-uncontrolled 3. Abnormal electrocardiogram with anteroseptal Q's and normal ejection fraction by echo this admit. 4. Clostridium difficile Colitis. 5. Renal failure. 6. Encephalopathy. 7. Chronic obstructive pulmonary disease. 8. History of cerebrovascular accident. 9. Dyslipidemia. 10. Dementia. 11. Anemia. 12. Leukocytosis. 12. Coagulopathy. Recc: -Continue asa -Continue abx's and f/u cx data -local wound care/conservative management -Continue current BB/ACEI/procardia XL and follow labile BP closely -Decrease dose of clonidine and possibly hold given low BP at this time -D/C second CCB norvasc -Follow volume status closely Problems: Consultation Date/Type/Reason Admit Date/Time July 09, 2016 at 12:24 Initial Consult Date 07/26/16 Type of Consultation: cardiology Reason for Consultation HTN Referring Provider: RONNIE PATEL MD Exam/Review of Systems Vital Signs Vitals Vital Signs Date Time Temp Pulse Resp B/P Pulse Ox O2 Delivery O2 Flow Rate FiO2 08/07/16 12:34 75 91/52 08/07/16 07:57 98.7 18 92 08/04/16 20:00 Nasal Cannula 2.0 Intake and Output 08/06/16 08/06/16 08/07/16 15:00 23:00 07:00 Intake Total 300 ml 1360 ml 800 ml Output Total 500 ml Balance 300 ml 860 ml 800 ml Exam Review of Systems: CONSTITUTIONAL: No fevers, chills. PULMONARY: No sob CARDIOVASCULAR: No chest pain/palpitations GASTROINTESTINAL: No nausea/vomiting. GENITOURINARY: No hematuria/dysuria. MUSCULOSKELETAL: No myagias/arthalgias. PSYCHIATRIC: The patient denies depression. NEUROLOGIC: lethargic Constitutional: alert Psych: no complaints Head: normocephalic ENMT: mucosa pink and moist Neck: jvd (9 cm water), supple Respiratory: diminished breath sounds (at bases/B) Cardiovascular: regular rate and rhythm Gastrointestinal: non-tender, soft Musculoskeletal: muscle tone (normal) Extremities: edema Neurological: other (No focal deficits) Results Result Diagram: 08/06/16 0535 08/07/16 0540 Results 24 hrs Laboratory Tests Test 08/07/16 05:40 Sodium Level 152 H Potassium Level 3.3 L Chloride Level 122 H Carbon Dioxide Level 19 L Anion Gap 14 Blood Urea Nitrogen 48 H Creatinine 2.75 H Glucose Level 119 Calcium Level 7.8 L Medications Medications Current Medications Acetaminophen (Tylenol Tab) 500 mg Q6H PRN PO PAIN AND OR ELEVATED TEMP; Start 07/09/16 at 20:30 Ondansetron HCl (Zofran Inj) 4 mg Q6H PRN IV NAUSEA AND/OR VOMITING; Start at 20:30 Aspirin (Aspirin) 81 mg DAILY PO Last administered on 08/07/16 09:50; Admin Dose 81 MG; Start 07/10/16 at 09:00 Benztropine Mesylate (Cogentin) 1 mg BID PO Last administered on 08/07/16 09: 55; Admin Dose 1 MG; Start 07/09/16 at 21:00 Finasteride (Proscar) 5 mg DAILY PO Last administered on 08/07/16 09:50; Admin Dose 5 MG; Start 07/10/16 at 09:00 Acetaminophen/ Hydrocodone Bitart ([place] (5/325)) 1 tab Q4 PRN PO SEVERE PAIN LEVEL 7-10 Last administered on 07/15/16 16:21; Admin Dose 1 TAB; Start at 20:30 Latanoprost (Xalatan) 1 drop QHS BOTH EYES Last administered on 08/06/16 20:17 ; Admin Dose 1 DROP; Start 07/09/16 at 21:00 Multivitamins Therapeutic (Theragran) 1 tab DAILY PO Last administered on 09:50; Admin Dose 1 TAB; Start 07/10/16 at 09:00 Olanzapine (Zyprexa) 5 mg QHS PO Last administered on 08/06/16 20:19; Admin Dose 5 MG; Start 07/09/16 at 21:00 Zinc Sulfate (Zinc Sulfate) 220 mg DAILY PO Last administered on 08/07/16 09: 50; Admin Dose 220 MG; Start 07/10/16 at 09:00 Acetaminophen (Tylenol Supp) 650 mg Q6H PRN [place] ELEVATED TEMPERATURE Last administered on 07/10/16 09:51; Admin Dose 650 MG; Start 07/10/16 at 09:30 Collagenase (Santyl) 1 applic DAILY TOP Last administered on 08/07/16 09:55; Admin Dose 1 APPLIC; Start 07/10/16 at 14:00 Bisacodyl (Dulcolax) 10 mg BID PO Last administered on 08/07/16 09:50; Admin Dose 10 MG; Start 07/13/16 at 15:00 Benazepril HCl (Lotensin) 20 mg DAILY PO Last administered on 08/07/16 09:51; Admin Dose 20 MG; Start 07/16/16 at 09:00 Zolpidem Tartrate (Ambien) 2.5 mg HS PRN PO INSOMNIA; Start 07/17/16 at 19:00 Epoetin Zana (Epogen (Esrd)) 6,000 units TuThSa@17 SC Last administered on 08/05 18:16; Admin Dose 6,000 UNITS; Start 07/17/16 at 20:00 Miscellaneous Information (Pending Santyl Order For Wound Care) This patient ellis... PRN PRN XX WOUND CARE; Start 07/18/16 at 07:00 Lorazepam (Ativan) 0.5 mg Q6H PRN PO ANXEITY Last administered on 07/19/16 22: 28; Admin Dose 0.5 MG; Start 07/18/16 at 16:00 Clonidine (Catapres) 0.1 mg TID PO Last administered on 08/07/16 09:56; Admin Dose 0.1 MG; Start 07/19/16 at 09:00 Vancomycin HCl 125 mg 125 mg Q6 PO Last administered on 08/07/16 12:33; Admin Dose 125 MG; Start 07/21/16 at 19:00 Metronidazole (Flagyl 500 Mg (Pmx)) 100 ml @ 100 mls/hr Q8 IVPB Last administered on 08/07/16 05:29; Admin Dose 100 MLS/HR; Start 07/22/16 at 16:30 Lactobacillus Acidophilus/ Rhamnosus (Culturelle) 1 cap BID PO Last administered on 08/07/16 09:50; Admin Dose 1 CAP; Start 07/23/16 at 21:00 Ascorbic Acid (Vitamin C) 500 mg DAILY PO Last administered on 08/07/16 09:50 ; Admin Dose 500 MG; Start 07/26/16 at 09:00 Metoprolol Tartrate (Lopressor) 25 mg BID PO Last administered on 08/07/16 09: 51; Admin Dose 25 MG; Start 07/28/16 at 21:00 Hydralazine HCl (Apresoline) 10 mg Q4H PRN IV ELEVATED BLOOD PRESSURE Last administered on 07/29/16 14:50; Admin Dose 10 MG; Start 07/28/16 at 20:30 Nifedipine (Procardia Xl) 60 mg QAM PO Last administered on 08/07/16 09:52; Admin Dose 60 MG; Start 08/02/16 at 09:00 Nifedipine 30 mg 30 mg QHS PO Last administered on 08/06/16 20:19; Admin Dose 30 MG; Start 08/01/16 at 21:00 Daptomycin 470 mg/ Sodium Chloride 100 ml @ 200 mls/hr Q48H IVPB Last administered on 08/06/16 21:14; Admin Dose 200 MLS/HR; Start 08/02/16 at 22:00 Potassium Chloride/Dextrose (D5W + KCl 20 Meq) 1,000 ml @ 120 mls/hr Q8H20M IV Last administered on 08/07/16 11:11; Admin Dose 120 MLS/HR; Start 08/05/16 at 14:30; Stop 08/08/16 at 10:00 PACHECO COHEN Aug 07, 2016 13:13
--- NOTE | 2016-08-07 14:02 | PN ---
Date/Time of Note Date/Time of Note DATE: 08/07/16 TIME: 14:02 Assessment/Plan VTE Prophylaxis VTE Prophylaxis Intervention: other Lines/Catheters IV Catheter Type (from [facility]): Peripheral IV Urinary Cath still in place: Yes Assessment/Plan Assessment/Plan - Hypokalemia, potassium replaced, continue to monitor. - Osteomyelitis of bilateral heels, continue daptomycin until August 25 per ID. - Bilateral heel wounds, patient is evaluated by Dr. Bell in podiatry consultation with recommendation of continue current wound care and not to proceed with debridement. - C. difficile colitis. Dr. Henderson is following an infection disease consultation. Continue oral vancomycin and intravenous metronidazole. - Colitis ulcers per colonoscopy, continue to follow-up gastroenterology recommendations. - Infected wounds on bilateral lower extremities. Continue antibiotics per ID. - Acute kidney injury on chronic kidney disease stage III with electrolyte imbalances. Dr. Srinivasan is following in nephrology consultation. - Acute metabolic encephalopathy, resolving. - Hypertension. Continue clonidine, Procardia and benazepril - Chronic obstructive pulmonary disease. Continue DuoNeb. - Benign prostatic hypertrophy. Continue Flomax. - Multiple decubitus ulcers present on admission. Continue local wound care, offloading. - Acute cerebrovascular accident. Continue aspirin. - Dyslipidemia. Continue Lipitor. - Dementia with behavioral disturbance. Continue Zyprexa. Further recommendations based on clinical course. Plan of care discussed with Dr. Rene. Exam/Review of Systems Vital Signs Vitals Vital Signs Date Time Temp Pulse Resp B/P Pulse Ox O2 Delivery O2 Flow Rate FiO2 08/07/16 12:34 75 91/52 08/07/16 07:57 98.7 18 92 08/04/16 20:00 Nasal Cannula 2.0 Intake and Output 08/06/16 08/06/16 08/07/16 15:00 23:00 07:00 Intake Total 300 ml 1360 ml 800 ml Output Total 500 ml Balance 300 ml 860 ml 800 ml Exam Constitutional: alert, well developed Respiratory: clear to auscultation, normal air movement Cardiovascular: nl pulses, regular rate and rhythm Gastrointestinal: non-tender, soft Musculoskeletal: nl extremities to inspection Extremities: normal pulses Neurological: nl speech Skin: other Results Result Diagram: 08/06/16 0535 08/07/16 0540 Results 24 hrs Laboratory Tests Test 08/07/16 05:40 Sodium Level 152 H Potassium Level 3.3 L Chloride Level 122 H Carbon Dioxide Level 19 L Anion Gap 14 Blood Urea Nitrogen 48 H Creatinine 2.75 H Glucose Level 119 Calcium Level 7.8 L Medications Medications Current Medications Acetaminophen (Tylenol Tab) 500 mg Q6H PRN PO PAIN AND OR ELEVATED TEMP; Start 07/09/16 at 20:30 Ondansetron HCl (Zofran Inj) 4 mg Q6H PRN IV NAUSEA AND/OR VOMITING; Start at 20:30 Aspirin (Aspirin) 81 mg DAILY PO Last administered on 08/07/16 09:50; Admin Dose 81 MG; Start 07/10/16 at 09:00 Benztropine Mesylate (Cogentin) 1 mg BID PO Last administered on 08/07/16 09: 55; Admin Dose 1 MG; Start 07/09/16 at 21:00 Finasteride (Proscar) 5 mg DAILY PO Last administered on 08/07/16 09:50; Admin Dose 5 MG; Start 07/10/16 at 09:00 Acetaminophen/ Hydrocodone Bitart ([place] (5/325)) 1 tab Q4 PRN PO SEVERE PAIN LEVEL 7-10 Last administered on 07/15/16 16:21; Admin Dose 1 TAB; Start at 20:30 Latanoprost (Xalatan) 1 drop QHS BOTH EYES Last administered on 08/06/16 20:17 ; Admin Dose 1 DROP; Start 07/09/16 at 21:00 Multivitamins Therapeutic (Theragran) 1 tab DAILY PO Last administered on 09:50; Admin Dose 1 TAB; Start 07/10/16 at 09:00 Olanzapine (Zyprexa) 5 mg QHS PO Last administered on 08/06/16 20:19; Admin Dose 5 MG; Start 07/09/16 at 21:00 Zinc Sulfate (Zinc Sulfate) 220 mg DAILY PO Last administered on 08/07/16 09: 50; Admin Dose 220 MG; Start 07/10/16 at 09:00 Acetaminophen (Tylenol Supp) 650 mg Q6H PRN [place] ELEVATED TEMPERATURE Last administered on 07/10/16 09:51; Admin Dose 650 MG; Start 07/10/16 at 09:30 Collagenase (Santyl) 1 applic DAILY TOP Last administered on 08/07/16 09:55; Admin Dose 1 APPLIC; Start 07/10/16 at 14:00 Bisacodyl (Dulcolax) 10 mg BID PO Last administered on 08/07/16 09:50; Admin Dose 10 MG; Start 07/13/16 at 15:00 Benazepril HCl (Lotensin) 20 mg DAILY PO Last administered on 08/07/16 09:51; Admin Dose 20 MG; Start 07/16/16 at 09:00 Zolpidem Tartrate (Ambien) 2.5 mg HS PRN PO INSOMNIA; Start 07/17/16 at 19:00 Epoetin Zana (Epogen (Esrd)) 6,000 units TuThSa@17 SC Last administered on 08/05 18:16; Admin Dose 6,000 UNITS; Start 07/17/16 at 20:00 Miscellaneous Information (Pending Santyl Order For Wound Care) This patient ellis... PRN PRN XX WOUND CARE; Start 07/18/16 at 07:00 Lorazepam (Ativan) 0.5 mg Q6H PRN PO ANXEITY Last administered on 07/19/16 22: 28; Admin Dose 0.5 MG; Start 07/18/16 at 16:00 Clonidine (Catapres) 0.1 mg TID PO Last administered on 08/07/16 09:56; Admin Dose 0.1 MG; Start 07/19/16 at 09:00; Status Future Hold Vancomycin HCl 125 mg 125 mg Q6 PO Last administered on 08/07/16 12:33; Admin Dose 125 MG; Start 07/21/16 at 19:00 Metronidazole (Flagyl 500 Mg (Pmx)) 100 ml @ 100 mls/hr Q8 IVPB Last administered on 08/07/16 05:29; Admin Dose 100 MLS/HR; Start 07/22/16 at 16:30 Lactobacillus Acidophilus/ Rhamnosus (Culturelle) 1 cap BID PO Last administered on 08/07/16 09:50; Admin Dose 1 CAP; Start 07/23/16 at 21:00 Ascorbic Acid (Vitamin C) 500 mg DAILY PO Last administered on 08/07/16 09:50 ; Admin Dose 500 MG; Start 07/26/16 at 09:00 Metoprolol Tartrate (Lopressor) 25 mg BID PO Last administered on 08/07/16 09: 51; Admin Dose 25 MG; Start 07/28/16 at 21:00 Hydralazine HCl (Apresoline) 10 mg Q4H PRN IV ELEVATED BLOOD PRESSURE Last administered on 07/29/16 14:50; Admin Dose 10 MG; Start 07/28/16 at 20:30 Nifedipine (Procardia Xl) 60 mg QAM PO Last administered on 08/07/16 09:52; Admin Dose 60 MG; Start 08/02/16 at 09:00 Nifedipine 30 mg 30 mg QHS PO Last administered on 08/06/16 20:19; Admin Dose 30 MG; Start 08/01/16 at 21:00 Daptomycin 470 mg/ Sodium Chloride 100 ml @ 200 mls/hr Q48H IVPB Last administered on 08/06/16 21:14; Admin Dose 200 MLS/HR; Start 08/02/16 at 22:00 Potassium Chloride/Dextrose (D5W + KCl 20 Meq) 1,000 ml @ 120 mls/hr Q8H20M IV Last administered on 08/07/16 11:11; Admin Dose 120 MLS/HR; Start 08/05/16 at 14:30; Stop 08/08/16 at 10:00 ISAEL CRYSTAL Aug 07, 2016 14:02
[2016-08-07] MEDS ORDERED: POTASSIUM CHLORIDE (SR) 20 MEQ TAB PO STA (14:36)
[2016-08-07] MEDS: EPOETIN 3000 UNITS/1 ML INJ (ESRD) SC SCH (17:42)
--- NOTE | 2016-08-07 17:45 | PN ---
DATE: 08/07/2016 SUBJECTIVE: No new complaints, states that he feels okay. Does not complain of any pain. OBJECTIVE: GENERAL: Awake and alert, responds to simple questions and follow simple commands. VITAL SIGNS: Temperature 98.7, heart rate 75, respirations 18, blood pressure 91/52 fluctuating bet ween 123/60. Saturation 92% on room air. LABORATORY DATA: Sodium 152, potassium 3.3. BUN 48, creatinine 2.75. Calcium 7.8. ASSESSMENT AND PLAN: This is a 71-year-old gentleman who was brought in because of acute renal fail ure, was found to have multiple decubitus ulcers, especially on the sacrococcygeal area which were s tage II to early stage III, which have received treatment and now is stage I, probably stage II. Al so patient was found to have bilateral heel black eschars, which later on by MRI possibly to h ave early osteomyelitis. Also patient has had urinary tract infection and other medical problems. Now patient is being treated for early osteomyelitis with antibiotics, which he is supposed to recei ve for 6 weeks. Also the patient developed C. diff stool in the hospital, which he has received michelle atment with vancomycin and Flagyl for that matter. From a surgical standpoint of view, I am treati ng the patient for mainly sacrococcygeal decubitus ulcer. I also have an eye on the heel pressure u lcers, which are being treated conservatively with Santyl and Adaptic and Kerlix around it and to pu t the heels and feet in the heel protection devices. Also change the position of the patient every 2 hours to protect the sacrococcygeal wound and actually help it to heal. We will continue to see t he patient and make further recommendations per hospital course. Dictated By: LISSETH RIVERS/MEAGAN Conf#: [id number] DID#: [id number]
[2016-08-07] MEDS: LATANOPROST 0.005% 2.5 ML OPH BOTH EYES SCH (20:08)
[2016-08-07] MEDS: OLANZAPINE 5 MG TAB PO SCH (20:09)
--- NOTE | 2016-08-07 20:15 | CONS ---
Date/Time of Note Date/Time of Note DATE: 08/07/16 TIME: 20:11 Assessment/Plan Assessment/Plan Chief Complaint/Hosp Course - early sepsis due to wound infection and OM of b/l heel and C diff colitis - infection of wounds of b/l heel due to MRSA, enterococcus spp and corynebacter jeikeium (grp JK); MRI showed early osteomyelitis at b/l posterior calcaneal margin. - unstageable decub of b/l heel - C diff colitis - resolving - s/p possible HCAP, Pt completed empiric cefepime (07/10/2016-07/19/2016); CXR on 07/20/2016 showed improvement. 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 I recommend total 6 weeks of IV antibiotic. - continue renally dosed daptomycin through 08/25/2016 (Pt received IV vancomycin , then linezolid before). CK=27 on 08/03/2016. Will repeat weekly - if Pt gets transferred to SNF, please order weekly CBC, BMP, CK while Pt's on IV antibiotics - continue PO vancomycin (07/15/2016-) and IV Flagyl (07/22/2016-) while Pt's on IV antibiotic Problems: Consultation Date/Type/Reason Admit Date/Time July 09, 2016 at 12:24 Initial Consult Date 07/11/16 Type of Consultation: ID Referring Provider: RONNIE PATEL MD 24 HR Interval Summary Subjective hx not possible: pt non-verbal, other (demented and did not answer all questions) Detailed Summary Respiratory: No cough, No shortness of breath Gastrointestinal: No diarrhea, No pain Musculoskeletal: No bone/joint pain Exam/Review of Systems Vital Signs Vitals Vital Signs Date Time Temp Pulse Resp B/P Pulse Ox O2 Delivery O2 Flow Rate FiO2 08/07/16 12:34 75 91/52 08/07/16 07:57 98.7 18 92 08/04/16 20:00 Nasal Cannula 2.0 Intake and Output 08/06/16 08/06/16 08/07/16 15:00 23:00 07:00 Intake Total 300 ml 1360 ml 800 ml Output Total 500 ml Balance 300 ml 860 ml 800 ml Exam Constitutional: non-verbal, other (demented and confused) Psych: confusion Head: atraumatic, normocephalic Eyes: nl conjunctiva, nl lids ENMT: nl external ears & nose, nl nasal mucosa & septum Neck: supple Genitourinary - Male: other (FC) Musculoskeletal: joint tenderness (R heel is malodorous and TTP, L heel is not) Neurological: confused Skin: rash or lesions (b/l heel wound) Results Result Diagram: 08/06/16 0535 08/07/16 0540 Results 24 hrs Laboratory Tests Test 08/07/16 05:40 Sodium Level 152 H Potassium Level 3.3 L Chloride Level 122 H Carbon Dioxide Level 19 L Anion Gap 14 Blood Urea Nitrogen 48 H Creatinine 2.75 H Glucose Level 119 Calcium Level 7.8 L Medications Medications Current Medications Acetaminophen (Tylenol Tab) 500 mg Q6H PRN PO PAIN AND OR ELEVATED TEMP; Start 07/09/16 at 20:30 Ondansetron HCl (Zofran Inj) 4 mg Q6H PRN IV NAUSEA AND/OR VOMITING; Start at 20:30 Aspirin (Aspirin) 81 mg DAILY PO Last administered on 08/07/16 09:50; Admin Dose 81 MG; Start 07/10/16 at 09:00 Benztropine Mesylate (Cogentin) 1 mg BID PO Last administered on 08/07/16 20: 09; Admin Dose 1 MG; Start 07/09/16 at 21:00 Finasteride (Proscar) 5 mg DAILY PO Last administered on 08/07/16 09:50; Admin Dose 5 MG; Start 07/10/16 at 09:00 Acetaminophen/ Hydrocodone Bitart ([place] (5/325)) 1 tab Q4 PRN PO SEVERE PAIN LEVEL 7-10 Last administered on 07/15/16 16:21; Admin Dose 1 TAB; Start at 20:30 Latanoprost (Xalatan) 1 drop QHS BOTH EYES Last administered on 08/07/16 20:08 ; Admin Dose 1 DROP; Start 07/09/16 at 21:00 Multivitamins Therapeutic (Theragran) 1 tab DAILY PO Last administered on 09:50; Admin Dose 1 TAB; Start 07/10/16 at 09:00 Olanzapine (Zyprexa) 5 mg QHS PO Last administered on 08/07/16 20:09; Admin Dose 5 MG; Start 07/09/16 at 21:00 Zinc Sulfate (Zinc Sulfate) 220 mg DAILY PO Last administered on 08/07/16 09: 50; Admin Dose 220 MG; Start 07/10/16 at 09:00 Acetaminophen (Tylenol Supp) 650 mg Q6H PRN [place] ELEVATED TEMPERATURE Last administered on 07/10/16 09:51; Admin Dose 650 MG; Start 07/10/16 at 09:30 Collagenase (Santyl) 1 applic DAILY TOP Last administered on 08/07/16 09:55; Admin Dose 1 APPLIC; Start 07/10/16 at 14:00 Bisacodyl (Dulcolax) 10 mg BID PO Last administered on 08/07/16 20:08; Admin Dose 10 MG; Start 07/13/16 at 15:00 Benazepril HCl (Lotensin) 20 mg DAILY PO Last administered on 08/07/16 09:51; Admin Dose 20 MG; Start 07/16/16 at 09:00 Zolpidem Tartrate (Ambien) 2.5 mg HS PRN PO INSOMNIA; Start 07/17/16 at 19:00 Epoetin Zana (Epogen (Esrd)) 6,000 units TuThSa@17 SC Last administered on 08/07 17:42; Admin Dose 6,000 UNITS; Start 07/17/16 at 20:00 Miscellaneous Information (Pending Santyl Order For Wound Care) This patient ellis... PRN PRN XX WOUND CARE; Start 07/18/16 at 07:00 Lorazepam (Ativan) 0.5 mg Q6H PRN PO ANXEITY Last administered on 07/19/16 22: 28; Admin Dose 0.5 MG; Start 07/18/16 at 16:00 Clonidine (Catapres) 0.1 mg TID PO Last administered on 08/07/16 09:56; Admin Dose 0.1 MG; Start 07/19/16 at 09:00; Status Future Hold Vancomycin HCl 125 mg 125 mg Q6 PO Last administered on 08/07/16 17:40; Admin Dose 125 MG; Start 07/21/16 at 19:00 Metronidazole (Flagyl 500 Mg (Pmx)) 100 ml @ 100 mls/hr Q8 IVPB Last administered on 08/07/16 14:04; Admin Dose 100 MLS/HR; Start 07/22/16 at 16:30 Lactobacillus Acidophilus/ Rhamnosus (Culturelle) 1 cap BID PO Last administered on 08/07/16 20:08; Admin Dose 1 CAP; Start 07/23/16 at 21:00 Ascorbic Acid (Vitamin C) 500 mg DAILY PO Last administered on 08/07/16 09:50 ; Admin Dose 500 MG; Start 07/26/16 at 09:00 Metoprolol Tartrate (Lopressor) 25 mg BID PO Last administered on 08/07/16 20: 10; Admin Dose 25 MG; Start 07/28/16 at 21:00 Hydralazine HCl (Apresoline) 10 mg Q4H PRN IV ELEVATED BLOOD PRESSURE Last administered on 07/29/16 14:50; Admin Dose 10 MG; Start 07/28/16 at 20:30 Nifedipine (Procardia Xl) 60 mg QAM PO Last administered on 08/07/16 09:52; Admin Dose 60 MG; Start 08/02/16 at 09:00 Nifedipine 30 mg 30 mg QHS PO Last administered on 08/07/16 20:10; Admin Dose 30 MG; Start 08/01/16 at 21:00 Daptomycin 470 mg/ Sodium Chloride 100 ml @ 200 mls/hr Q48H IVPB Last administered on 08/06/16 21:14; Admin Dose 200 MLS/HR; Start 08/02/16 at 22:00 Potassium Chloride/Dextrose (D5W + KCl 20 Meq) 1,000 ml @ 120 mls/hr Q8H20M IV Last administered on 08/07/16 20:08; Admin Dose 120 MLS/HR; Start 08/05/16 at 14:30; Stop 08/08/16 at 10:00 JERO GALAN M.D. Aug 07, 2016 20:14
[2016-08-07 20:34] VITALS: BP 112/60; RESP 20
[2016-08-08] MEDS: metroNIDAZOLE 500 MG/NS (PMX) 100 ML IVPB SCH ×3 (05:30→23:06)
[2016-08-08] MEDS: D5W + KCL 20 MEQ 1,000 ML IV SCH (05:30)
[2016-08-08] MEDS: VANCOMYCIN HCL 250 MG/5ML POSYG PO SCH ×3 (05:30→17:38)
[2016-08-08 05:50] LABS: ADD SCAN DIFF NO
[2016-08-08 06:14] LABS: ABNORMAL IP MESSAGE 1; HEMATOCRIT 27.5 % (42.0-52.0); HEMOGLOBIN 9.1 g/dl (14.0-18.0); MEAN CORPUSCULAR HEMOGLOBIN 29.5 pg (29.0-33.0); MEAN CORPUSCULAR HGB CONC 33.1 g/dl (32.0-37.0); MEAN CORPUSCULAR VOLUME 89.3 fl (82.0-101.0); MEAN PLATELET VOLUME 10.4 fl (7.4-10.4); PLATELET COUNT 195 10^3/UL (140-415); RED BLOOD COUNT 3.08 10^6/ul (4.70-6.10); RED CELL DISTRIBUTION WIDTH 15.4 % (11.5-14.5); WHITE BLOOD COUNT 34.3 10^3/ul (4.8-10.8)
[2016-08-08 06:57] LABS: CALCIUM 7.2 mg/dl (8.4-10.2); CREATININE 2.62 mg/dl (0.61-1.24); POTASSIUM 3.2 mmol/L (3.5-5.1)
[2016-08-08 08:31] VITALS: BP 132/64; RESP 20
[2016-08-08] MEDS: ZINC SULFATE 220 MG CAP PO SCH (08:42)
[2016-08-08] MEDS: BISACODYL (EC) 5 MG TAB PO SCH ×2 (08:42→21:45)
[2016-08-08] MEDS: PANTOPRAZOLE (EC) 40 MG TAB PO SCH (08:42)
[2016-08-08] MEDS: METOPROLOL 25 MG TAB PO SCH ×2 (08:43→21:45)
[2016-08-08] MEDS: MULTIVITAMINS THERAPEUTIC TAB PO SCH (08:43)
[2016-08-08] MEDS: BENZTROPINE 1 MG TAB PO SCH ×2 (08:43→21:45)
[2016-08-08] MEDS: BENAZEPRIL 20 MG TAB PO SCH (08:43)
[2016-08-08] MEDS: CALCIUM CARBONATE 750 MG CHEW TAB PO SCH ×3 (08:43→17:38)
[2016-08-08] MEDS: ASCORBIC ACID 500 MG TAB PO SCH (08:43)
[2016-08-08] MEDS: ASPIRIN 81 MG TAB PO SCH (08:43)
[2016-08-08] MEDS: FINASTERIDE 5 MG TAB PO SCH (08:43)
[2016-08-08] MEDS: LACTOBACILLUS RHAMNOSUS CAP PO SCH ×2 (08:43→21:46)
[2016-08-08] MEDS: NIFEdipine (XL) 30 MG TAB PO SCH ×2 (08:44→21:45)
[2016-08-08 10:16] LABS: LYMPHOCYTES # 3.4 10^3/ul (0.8-2.9); MONOCYTE # 1.4 10^3/ul (0.3-0.9); NEUTROPHIL # 23.3 10^3/ul (1.6-7.5)
--- NOTE | 2016-08-08 10:50 | CONS ---
Date/Time of Note Date/Time of Note DATE: 08/08/16 TIME: 10:49 Assessment/Plan Assessment/Plan Additional Assessment/Plan 1. Preoperative evaluation prior to debridement of heel decubitus ulcers.- negative trop x 3/NL EF by echo this admit with no sig contraindicated valve lesions. Ok to proceed to OR on BB continue pre-post op without further non- invasive eval at moderate risk - stable now 2. Hypertension-labile, con't Med rx 3. Abnormal electrocardiogram with anteroseptal Q's and normal ejection fraction by echo this admit. 4. Clostridium difficile Colitis- rx now 5. Renal failure. 6. Encephalopathy- stable 7. Chronic obstructive pulmonary disease- no wheezing by exam now 8. History of cerebrovascular accident- con't chronic care. 9. Dyslipidemia. 10. Dementia. 11. Anemia. 12. Leukocytosis. 12. Coagulopathy. Consultation Date/Type/Reason Admit Date/Time July 09, 2016 at 12:24 Initial Consult Date 07/26/16 Type of Consultation: ID Referring Provider: RONNIE PATEL MD 24 HR Interval Summary Free Text/Dictation NO acute events - BP stable - con't to monitor ROS: No fever, no chills, no nausea, no vomiting, no diarrhea/constipation No recent weight changes No chest pain, no PND, no orthopnea No dizziness, blurred vision No thirst, no heat or cold intolerance Exam/Review of Systems Vital Signs Vitals Vital Signs Date Time Temp Pulse Resp B/P Pulse Ox O2 Delivery O2 Flow Rate FiO2 08/08/16 08:31 98.5 78 20 132/64 96 08/04/16 20:00 Nasal Cannula 2.0 Intake and Output 08/07/16 08/07/16 08/08/16 15:00 23:00 07:00 Intake Total 320 ml 1660 ml 1120 ml Output Total 400 ml 500 ml Balance 320 ml 1260 ml 620 ml Exam General: WN/WD/NAD, AOx comfortable HEENT: Unicetric/atraumatic/EOMI (follow commands) NECK: JVD elevated, no thyromegaly Lymph: no lymphadenopathy HEART: regular with no S3, II/ systolic murmur at apex LUNGS: Coarse sounds ABD: soft, NT, ND, +BS : Intact Neuro: non focal SKIN: chronic changes EXT: trace edema Results Result Diagram: 08/08/16 0508/08/16 0520 Results 24 hrs Laboratory Tests Test 08/08/16 05:20 White Blood Count 34.3 #H Red Blood Count 3.08 L Hemoglobin 9.1 L Hematocrit 27.5 L Mean Corpuscular Volume 89.3 Mean Corpuscular Hemoglobin 29.5 Mean Corpuscular Hemoglobin Concent 33.1 Red Cell Distribution Width 15.4 H Platelet Count 195 # Mean Platelet Volume 10.4 Neutrophils % 68.0 Band Neutrophils % 15.0 H Lymphocytes % 10.0 L Monocytes % 4.0 Eosinophils % 3.0 Neutrophils # 23.3 H Lymphocytes # 3.4 H Monocytes # 1.4 H Eosinophils # 1.0 H Sodium Level 145 H Potassium Level 3.2 L Chloride Level 119 H Carbon Dioxide Level 18 L Anion Gap 11 Blood Urea Nitrogen 41 H Creatinine 2.62 H Glucose Level 94 Calcium Level 7.2 L Medications Medications Current Medications Acetaminophen (Tylenol Tab) 500 mg Q6H PRN PO PAIN AND OR ELEVATED TEMP; Start 07/09/16 at 20:30 Ondansetron HCl (Zofran Inj) 4 mg Q6H PRN IV NAUSEA AND/OR VOMITING; Start at 20:30 Aspirin (Aspirin) 81 mg DAILY PO Last administered on 08/08/16 08:43; Admin Dose 81 MG; Start 07/10/16 at 09:00 Benztropine Mesylate (Cogentin) 1 mg BID PO Last administered on 08/08/16 08: 43; Admin Dose 1 MG; Start 07/09/16 at 21:00 Finasteride (Proscar) 5 mg DAILY PO Last administered on 08/08/16 08:43; Admin Dose 5 MG; Start 07/10/16 at 09:00 Acetaminophen/ Hydrocodone Bitart ([place] (5/325)) 1 tab Q4 PRN PO SEVERE PAIN LEVEL 7-10 Last administered on 07/15/16 16:21; Admin Dose 1 TAB; Start at 20:30 Latanoprost (Xalatan) 1 drop QHS BOTH EYES Last administered on 08/07/16 20:08 ; Admin Dose 1 DROP; Start 07/09/16 at 21:00 Multivitamins Therapeutic (Theragran) 1 tab DAILY PO Last administered on 08:43; Admin Dose 1 TAB; Start 07/10/16 at 09:00 Olanzapine (Zyprexa) 5 mg QHS PO Last administered on 08/07/16 20:09; Admin Dose 5 MG; Start 07/09/16 at 21:00 Zinc Sulfate (Zinc Sulfate) 220 mg DAILY PO Last administered on 08/08/16 08: 42; Admin Dose 220 MG; Start 07/10/16 at 09:00 Acetaminophen (Tylenol Supp) 650 mg Q6H PRN [place] ELEVATED TEMPERATURE Last administered on 07/10/16 09:51; Admin Dose 650 MG; Start 07/10/16 at 09:30 Collagenase (Santyl) 1 applic DAILY TOP Last administered on 08/07/16 09:55; Admin Dose 1 APPLIC; Start 07/10/16 at 14:00 Bisacodyl (Dulcolax) 10 mg BID PO Last administered on 08/08/16 08:42; Admin Dose 10 MG; Start 07/13/16 at 15:00 Benazepril HCl (Lotensin) 20 mg DAILY PO Last administered on 08/08/16 08:43; Admin Dose 20 MG; Start 07/16/16 at 09:00 Zolpidem Tartrate (Ambien) 2.5 mg HS PRN PO INSOMNIA; Start 07/17/16 at 19:00 Epoetin Zana (Epogen (Esrd)) 6,000 units TuThSa@17 SC Last administered on 08/07 17:42; Admin Dose 6,000 UNITS; Start 07/17/16 at 20:00 Miscellaneous Information (Pending Santyl Order For Wound Care) This patient ellis... PRN PRN XX WOUND CARE; Start 07/18/16 at 07:00 Lorazepam (Ativan) 0.5 mg Q6H PRN PO ANXEITY Last administered on 07/19/16 22: 28; Admin Dose 0.5 MG; Start 07/18/16 at 16:00 Clonidine (Catapres) 0.1 mg TID PO Last administered on 08/07/16 09:56; Admin Dose 0.1 MG; Start 07/19/16 at 09:00; Status Future Hold Vancomycin HCl 125 mg 125 mg Q6 PO Last administered on 08/07/16 23:15; Admin Dose 125 MG; Start 07/21/16 at 19:00 Metronidazole (Flagyl 500 Mg (Pmx)) 100 ml @ 100 mls/hr Q8 IVPB Last administered on 08/08/16 05:30; Admin Dose 100 MLS/HR; Start 07/22/16 at 16:30 Lactobacillus Acidophilus/ Rhamnosus (Culturelle) 1 cap BID PO Last administered on 08/08/16 08:43; Admin Dose 1 CAP; Start 07/23/16 at 21:00 Ascorbic Acid (Vitamin C) 500 mg DAILY PO Last administered on 08/08/16 08:43 ; Admin Dose 500 MG; Start 07/26/16 at 09:00 Metoprolol Tartrate (Lopressor) 25 mg BID PO Last administered on 08/08/16 08: 43; Admin Dose 25 MG; Start 07/28/16 at 21:00 Hydralazine HCl (Apresoline) 10 mg Q4H PRN IV ELEVATED BLOOD PRESSURE Last administered on 07/29/16 14:50; Admin Dose 10 MG; Start 07/28/16 at 20:30 Nifedipine (Procardia Xl) 60 mg QAM PO Last administered on 08/08/16 08:44; Admin Dose 60 MG; Start 08/02/16 at 09:00 Nifedipine 30 mg 30 mg QHS PO Last administered on 08/07/16 20:10; Admin Dose 30 MG; Start 08/01/16 at 21:00 Daptomycin/Sodium Chloride (Cubicin/NS) 100 ml @ 200 mls/hr Q48H IVPB Last administered on 08/06/16 21:14; Admin Dose 200 MLS/HR; Start 08/02/16 at 22:00 ADITYA STANFORD MD Aug 08, 2016 10:50
[2016-08-08 13:10] LABS: ADD SCAN DIFF NO
[2016-08-08 13:12] LABS: ABNORMAL IP MESSAGE 1; HEMOGLOBIN 8.8 g/dl (14.0-18.0); MEAN CORPUSCULAR HEMOGLOBIN 29.6 pg (29.0-33.0); MEAN CORPUSCULAR HGB CONC 33.8 g/dl (32.0-37.0); MEAN CORPUSCULAR VOLUME 87.5 fl (82.0-101.0); MEAN PLATELET VOLUME 10.7 fl (7.4-10.4); PLATELET COUNT 226 10^3/UL (140-415); RED BLOOD COUNT 2.97 10^6/ul (4.70-6.10); RED CELL DISTRIBUTION WIDTH 15.4 % (11.5-14.5); WHITE BLOOD COUNT 37.1 10^3/ul (4.8-10.8)
[2016-08-08 13:49] LABS: EOSINOPHILS # 1.5 10^3/ul (0.0-0.5); LYMPHOCYTES # 2.2 10^3/ul (0.8-2.9); MONOCYTE # 1.1 10^3/ul (0.3-0.9); NEUTROPHIL # 25.6 10^3/ul (1.6-7.5); POLYCHROMASIA OCCASIONAL
--- NOTE | 2016-08-08 14:23 | PN ---
DATE: 08/08/2016 SUBJECTIVE: No complaint. No pain. OBJECTIVE: GENERAL: Actually, the patient is quite alert and awake, looking to me, answering questions very ni refugio, in no acute distress. VITAL SIGNS: Temperature 98.5, heart rate 78, respirations 20, blood pressure 132/67, saturation __ ___% on room air. ABDOMEN: Soft. HEART: Regular. LUNGS: Probably decreased breathing sounds in the left base. GENITOURINARY: The patient has a Avila, but the urine is quite dark. I do not know if there is blo od in the urine, or is infection, or is quite dense. We are going to send a stat urinalysis. EXTREMITIES: No calf tenderness. SKIN: Sacrococcygeal wound is healing very nicely. Dressing is being changed with Adaptic and Mikayla yl and also foam dressing on the top of it. The bilateral heel black eschars are being treated with Santyl and Adaptic and wrap around with Kerlix and protected by a heel protector. LABORATORY DATA: WBC today is 33,000 with 68% neutrophils and 15% bands. Repeated 5 hours to 6 gabriela rs later, still it is 37,000, differential has not been done yet. Hemoglobin is 8.8, hematocrit 26 . Chemistry: Sodium 145, potassium 3.2, BUN 41, creatinine 2.62, calcium 7.2. PLAN: The patient is receiving IV Flagyl and p.o. vancomycin and also daptomycin IV. We will order also a urinalysis and chest x-ray to make sure what is the cause of this increased leukocytosis. Dictated By: LISSETH RIVERS/MEAGAN Conf#: [id number] DID#: [id number]
--- NOTE | 2016-08-08 14:40 | CONS ---
Date/Time of Note Date/Time of Note DATE: 08/08/16 TIME: 14:31 Assessment/Plan Assessment/Plan Chief Complaint/Hosp Course - possible recurrent sepsis - sepsis due to wound infection and OM of b/l heel and C diff colitis - infection of wounds of b/l heel due to MRSA, enterococcus spp and corynebacter jeikeium (grp JK); MRI showed early osteomyelitis at b/l posterior calcaneal margin. - unstageable decub of b/l heel - C diff colitis - resolving - s/p possible HCAP, Pt completed empiric cefepime (07/10/2016-07/19/2016); CXR on 07/20/2016 showed improvement. 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 Improved after its discontinuation recommendations: - I recommend and ordered: blood cultures x2, remove the urinary catheter, obtain a fresh sample of urinalysis and urine culture, then insert a new catheter, CXR - MRI from 08/01/2016 showed early osteomyelitis at b/l posterior calcaneal margin. I recommend total 6 weeks of IV antibiotic. - continue renally dosed IV daptomycin through 08/25/2016 (Pt received IV vancomycin, then linezolid before). CK=27 on 08/03/2016. Will repeat weekly - if Pt gets transferred to SNF, please order weekly CBC, BMP, CK while Pt's on IV antibiotics - continue PO vancomycin (07/15/2016-) and IV Flagyl (07/22/2016-) while Pt's on IV antibiotic management d/w Pt, his RN, Dr. Simental and Dr. Patel the total time I took to care for this Pt today was from 1300 to 1345 Problems: Consultation Date/Type/Reason Admit Date/Time July 09, 2016 at 12:24 Initial Consult Date 07/11/16 Type of Consultation: ID Referring Provider: RONNIE PATEL MD 24 HR Interval Summary Subjective hx not possible: other (demented and confused) Detailed Summary Respiratory: no complaints Cardiovascular: no complaints Gastrointestinal: No diarrhea, No pain Genitourinary: other (FC) Musculoskeletal: No bone/joint pain Skin: no complaints Exam/Review of Systems Vital Signs Vitals Vital Signs Date Time Temp Pulse Resp B/P Pulse Ox O2 Delivery O2 Flow Rate FiO2 08/08/16 08:31 98.5 78 20 132/64 96 08/04/16 20:00 Nasal Cannula 2.0 Intake and Output 08/07/16 08/07/16 08/08/16 15:00 23:00 07:00 Intake Total 320 ml 1660 ml 1120 ml Output Total 400 ml 500 ml Balance 320 ml 1260 ml 620 ml Exam Constitutional: other (demented) Psych: confusion Head: atraumatic, normocephalic Eyes: nl conjunctiva, nl lids ENMT: nl external ears & nose, nl nasal mucosa & septum Neck: other (did not follow commands) Respiratory: clear to auscultation, normal air movement Cardiovascular: nl pulses, regular rate and rhythm, No systolic murmur Gastrointestinal: other (limited exam due to her conractured legs), soft Musculoskeletal: joint tenderness (R heel with drainage), other (contractured) Extremities: normal pulses, No edema Neurological: confused Skin: rash or lesions (R heel is purulent and malodorous) Results Result Diagram: 08/08/16 1230 08/08/16 0520 Results 24 hrs Laboratory Tests Test 08/08/16 05:20 08/08/16 12:30 White Blood Count 34.3 #H 37.1 H Red Blood Count 3.08 L 2.97 L Hemoglobin 9.1 L 8.8 L Hematocrit 27.5 L 26.0 L Mean Corpuscular Volume 89.3 87.5 Mean Corpuscular Hemoglobin 29.5 29.6 Mean Corpuscular Hemoglobin Concent 33.1 33.8 Red Cell Distribution Width 15.4 H 15.4 H Platelet Count 195 # 226 Mean Platelet Volume 10.4 10.7 H Neutrophils % 68.0 69.0 Band Neutrophils % 15.0 H 18.0 H Lymphocytes % 10.0 L 6.0 L Monocytes % 4.0 3.0 Eosinophils % 3.0 4.0 Neutrophils # 23.3 H 25.6 H Lymphocytes # 3.4 H 2.2 Monocytes # 1.4 H 1.1 H Eosinophils # 1.0 H 1.5 H Sodium Level 145 H Potassium Level 3.2 L Chloride Level 119 H Carbon Dioxide Level 18 L Anion Gap 11 Blood Urea Nitrogen 41 H Creatinine 2.62 H Glucose Level 94 Calcium Level 7.2 L Differential Comment MANUAL DIFF Large Platelets OCCASIONAL Polychromasia OCCASIONAL Medications Medications Current Medications Acetaminophen (Tylenol Tab) 500 mg Q6H PRN PO PAIN AND OR ELEVATED TEMP; Start 07/09/16 at 20:30 Ondansetron HCl (Zofran Inj) 4 mg Q6H PRN IV NAUSEA AND/OR VOMITING; Start at 20:30 Aspirin (Aspirin) 81 mg DAILY PO Last administered on 08/08/16 08:43; Admin Dose 81 MG; Start 07/10/16 at 09:00 Benztropine Mesylate (Cogentin) 1 mg BID PO Last administered on 08/08/16 08: 43; Admin Dose 1 MG; Start 07/09/16 at 21:00 Finasteride (Proscar) 5 mg DAILY PO Last administered on 08/08/16 08:43; Admin Dose 5 MG; Start 07/10/16 at 09:00 Acetaminophen/ Hydrocodone Bitart ([place] (5/325)) 1 tab Q4 PRN PO SEVERE PAIN LEVEL 7-10 Last administered on 07/15/16 16:21; Admin Dose 1 TAB; Start at 20:30 Latanoprost (Xalatan) 1 drop QHS BOTH EYES Last administered on 08/07/16 20:08 ; Admin Dose 1 DROP; Start 07/09/16 at 21:00 Multivitamins Therapeutic (Theragran) 1 tab DAILY PO Last administered on 08:43; Admin Dose 1 TAB; Start 07/10/16 at 09:00 Olanzapine (Zyprexa) 5 mg QHS PO Last administered on 08/07/16 20:09; Admin Dose 5 MG; Start 07/09/16 at 21:00 Zinc Sulfate (Zinc Sulfate) 220 mg DAILY PO Last administered on 08/08/16 08: 42; Admin Dose 220 MG; Start 07/10/16 at 09:00 Acetaminophen (Tylenol Supp) 650 mg Q6H PRN [place] ELEVATED TEMPERATURE Last administered on 07/10/16 09:51; Admin Dose 650 MG; Start 07/10/16 at 09:30 Collagenase (Santyl) 1 applic DAILY TOP Last administered on 08/07/16 09:55; Admin Dose 1 APPLIC; Start 07/10/16 at 14:00 Bisacodyl (Dulcolax) 10 mg BID PO Last administered on 08/08/16 08:42; Admin Dose 10 MG; Start 07/13/16 at 15:00 Benazepril HCl (Lotensin) 20 mg DAILY PO Last administered on 08/08/16 08:43; Admin Dose 20 MG; Start 07/16/16 at 09:00 Zolpidem Tartrate (Ambien) 2.5 mg HS PRN PO INSOMNIA; Start 07/17/16 at 19:00 Epoetin Zana (Epogen (Esrd)) 6,000 units TuThSa@17 SC Last administered on 08/07 17:42; Admin Dose 6,000 UNITS; Start 07/17/16 at 20:00 Miscellaneous Information (Pending Santyl Order For Wound Care) This patient ellis... PRN PRN XX WOUND CARE; Start 07/18/16 at 07:00 Lorazepam (Ativan) 0.5 mg Q6H PRN PO ANXEITY Last administered on 07/19/16 22: 28; Admin Dose 0.5 MG; Start 07/18/16 at 16:00 Clonidine (Catapres) 0.1 mg TID PO Last administered on 08/07/16 09:56; Admin Dose 0.1 MG; Start 07/19/16 at 09:00; Status Future Hold Vancomycin HCl 125 mg 125 mg Q6 PO Last administered on 08/08/16 12:27; Admin Dose 125 MG; Start 07/21/16 at 19:00 Metronidazole (Flagyl 500 Mg (Pmx)) 100 ml @ 100 mls/hr Q8 IVPB Last administered on 08/08/16 13:38; Admin Dose 100 MLS/HR; Start 07/22/16 at 16:30 Lactobacillus Acidophilus/ Rhamnosus (Culturelle) 1 cap BID PO Last administered on 08/08/16 08:43; Admin Dose 1 CAP; Start 07/23/16 at 21:00 Ascorbic Acid (Vitamin C) 500 mg DAILY PO Last administered on 08/08/16 08:43 ; Admin Dose 500 MG; Start 07/26/16 at 09:00 Metoprolol Tartrate (Lopressor) 25 mg BID PO Last administered on 08/08/16 08: 43; Admin Dose 25 MG; Start 07/28/16 at 21:00 Hydralazine HCl (Apresoline) 10 mg Q4H PRN IV ELEVATED BLOOD PRESSURE Last administered on 07/29/16 14:50; Admin Dose 10 MG; Start 07/28/16 at 20:30 Nifedipine (Procardia Xl) 60 mg QAM PO Last administered on 08/08/16 08:44; Admin Dose 60 MG; Start 08/02/16 at 09:00 Nifedipine 30 mg 30 mg QHS PO Last administered on 08/07/16 20:10; Admin Dose 30 MG; Start 08/01/16 at 21:00 Daptomycin/Sodium Chloride (Cubicin/NS) 100 ml @ 200 mls/hr Q48H IVPB Last administered on 08/06/16 21:14; Admin Dose 200 MLS/HR; Start 08/02/16 at 22:00 JERO GALAN M.D. Aug 08, 2016 14:40
--- NOTE | 2016-08-08 14:41 | CONS ---
Date/Time of Note Date/Time of Note DATE: 08/08/16 TIME: 14:40 Assessment/Plan Assessment/Plan Chief Complaint/Hosp Course - possible recurrent sepsis - sepsis due to wound infection and OM of b/l heel and C diff colitis - infection of wounds of b/l heel due to MRSA, enterococcus spp and corynebacter jeikeium (grp JK); MRI showed early osteomyelitis at b/l posterior calcaneal margin. - unstageable decub of b/l heel - C diff colitis - resolving - s/p possible HCAP, Pt completed empiric cefepime (07/10/2016-07/19/2016); CXR on 07/20/2016 showed improvement. 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 Improved after its discontinuation REVISED recommendations: - I recommend and ordered: blood cultures x2, remove the urinary catheter, obtain a fresh sample of urinalysis and urine culture, then insert a new catheter, CXR - add empiric meropenem while waiting for the result of above cultures - MRI from 08/01/2016 showed early osteomyelitis at b/l posterior calcaneal margin. I recommend total 6 weeks of IV antibiotic. - continue renally dosed IV daptomycin through 08/25/2016 (Pt received IV vancomycin, then linezolid before). CK=27 on 08/03/2016. Will repeat weekly - if Pt gets transferred to SNF, please order weekly CBC, BMP, CK while Pt's on IV antibiotics - continue PO vancomycin (07/15/2016-) and IV Flagyl (07/22/2016-) while Pt's on IV antibiotic management d/w Pt, his RN, Dr. Simental and Dr. Patel the total time I took to care for this Pt today was from 1300 to 1345 Problems: Consultation Date/Type/Reason Admit Date/Time July 09, 2016 at 12:24 Initial Consult Date 07/11/16 Type of Consultation: ID Referring Provider: RONNIE PATEL MD Exam/Review of Systems Vital Signs Vitals Vital Signs Date Time Temp Pulse Resp B/P Pulse Ox O2 Delivery O2 Flow Rate FiO2 08/08/16 08:31 98.5 78 20 132/64 96 08/04/16 20:00 Nasal Cannula 2.0 Intake and Output 08/07/16 08/07/16 08/08/16 15:00 23:00 07:00 Intake Total 320 ml 1660 ml 1120 ml Output Total 400 ml 500 ml Balance 320 ml 1260 ml 620 ml Results Result Diagram: 08/08/16 1230 08/08/16 0520 Results 24 hrs Laboratory Tests Test 08/08/16 05:20 08/08/16 12:30 White Blood Count 34.3 #H 37.1 H Red Blood Count 3.08 L 2.97 L Hemoglobin 9.1 L 8.8 L Hematocrit 27.5 L 26.0 L Mean Corpuscular Volume 89.3 87.5 Mean Corpuscular Hemoglobin 29.5 29.6 Mean Corpuscular Hemoglobin Concent 33.1 33.8 Red Cell Distribution Width 15.4 H 15.4 H Platelet Count 195 # 226 Mean Platelet Volume 10.4 10.7 H Neutrophils % 68.0 69.0 Band Neutrophils % 15.0 H 18.0 H Lymphocytes % 10.0 L 6.0 L Monocytes % 4.0 3.0 Eosinophils % 3.0 4.0 Neutrophils # 23.3 H 25.6 H Lymphocytes # 3.4 H 2.2 Monocytes # 1.4 H 1.1 H Eosinophils # 1.0 H 1.5 H Sodium Level 145 H Potassium Level 3.2 L Chloride Level 119 H Carbon Dioxide Level 18 L Anion Gap 11 Blood Urea Nitrogen 41 H Creatinine 2.62 H Glucose Level 94 Calcium Level 7.2 L Differential Comment MANUAL DIFF Large Platelets OCCASIONAL Polychromasia OCCASIONAL Medications Medications Current Medications Acetaminophen (Tylenol Tab) 500 mg Q6H PRN PO PAIN AND OR ELEVATED TEMP; Start 07/09/16 at 20:30 Ondansetron HCl (Zofran Inj) 4 mg Q6H PRN IV NAUSEA AND/OR VOMITING; Start at 20:30 Aspirin (Aspirin) 81 mg DAILY PO Last administered on 08/08/16 08:43; Admin Dose 81 MG; Start 07/10/16 at 09:00 Benztropine Mesylate (Cogentin) 1 mg BID PO Last administered on 08/08/16 08: 43; Admin Dose 1 MG; Start 07/09/16 at 21:00 Finasteride (Proscar) 5 mg DAILY PO Last administered on 08/08/16 08:43; Admin Dose 5 MG; Start 07/10/16 at 09:00 Acetaminophen/ Hydrocodone Bitart ([place] (5/325)) 1 tab Q4 PRN PO SEVERE PAIN LEVEL 7-10 Last administered on 07/15/16 16:21; Admin Dose 1 TAB; Start at 20:30 Latanoprost (Xalatan) 1 drop QHS BOTH EYES Last administered on 08/07/16 20:08 ; Admin Dose 1 DROP; Start 07/09/16 at 21:00 Multivitamins Therapeutic (Theragran) 1 tab DAILY PO Last administered on 08:43; Admin Dose 1 TAB; Start 07/10/16 at 09:00 Olanzapine (Zyprexa) 5 mg QHS PO Last administered on 08/07/16 20:09; Admin Dose 5 MG; Start 07/09/16 at 21:00 Zinc Sulfate (Zinc Sulfate) 220 mg DAILY PO Last administered on 08/08/16 08: 42; Admin Dose 220 MG; Start 07/10/16 at 09:00 Acetaminophen (Tylenol Supp) 650 mg Q6H PRN [place] ELEVATED TEMPERATURE Last administered on 07/10/16 09:51; Admin Dose 650 MG; Start 07/10/16 at 09:30 Collagenase (Santyl) 1 applic DAILY TOP Last administered on 08/07/16 09:55; Admin Dose 1 APPLIC; Start 07/10/16 at 14:00 Bisacodyl (Dulcolax) 10 mg BID PO Last administered on 08/08/16 08:42; Admin Dose 10 MG; Start 07/13/16 at 15:00 Benazepril HCl (Lotensin) 20 mg DAILY PO Last administered on 08/08/16 08:43; Admin Dose 20 MG; Start 07/16/16 at 09:00 Zolpidem Tartrate (Ambien) 2.5 mg HS PRN PO INSOMNIA; Start 07/17/16 at 19:00 Epoetin Zana (Epogen (Esrd)) 6,000 units TuThSa@17 SC Last administered on 08/07 17:42; Admin Dose 6,000 UNITS; Start 07/17/16 at 20:00 Miscellaneous Information (Pending Santyl Order For Wound Care) This patient ellis... PRN PRN XX WOUND CARE; Start 07/18/16 at 07:00 Lorazepam (Ativan) 0.5 mg Q6H PRN PO ANXEITY Last administered on 07/19/16 22: 28; Admin Dose 0.5 MG; Start 07/18/16 at 16:00 Clonidine (Catapres) 0.1 mg TID PO Last administered on 08/07/16 09:56; Admin Dose 0.1 MG; Start 07/19/16 at 09:00; Status Future Hold Vancomycin HCl 125 mg 125 mg Q6 PO Last administered on 08/08/16 12:27; Admin Dose 125 MG; Start 07/21/16 at 19:00 Metronidazole (Flagyl 500 Mg (Pmx)) 100 ml @ 100 mls/hr Q8 IVPB Last administered on 08/08/16 13:38; Admin Dose 100 MLS/HR; Start 07/22/16 at 16:30 Lactobacillus Acidophilus/ Rhamnosus (Culturelle) 1 cap BID PO Last administered on 08/08/16 08:43; Admin Dose 1 CAP; Start 07/23/16 at 21:00 Ascorbic Acid (Vitamin C) 500 mg DAILY PO Last administered on 08/08/16 08:43 ; Admin Dose 500 MG; Start 07/26/16 at 09:00 Metoprolol Tartrate (Lopressor) 25 mg BID PO Last administered on 08/08/16 08: 43; Admin Dose 25 MG; Start 07/28/16 at 21:00 Hydralazine HCl (Apresoline) 10 mg Q4H PRN IV ELEVATED BLOOD PRESSURE Last administered on 07/29/16 14:50; Admin Dose 10 MG; Start 07/28/16 at 20:30 Nifedipine (Procardia Xl) 60 mg QAM PO Last administered on 08/08/16 08:44; Admin Dose 60 MG; Start 08/02/16 at 09:00 Nifedipine 30 mg 30 mg QHS PO Last administered on 08/07/16 20:10; Admin Dose 30 MG; Start 08/01/16 at 21:00 Daptomycin/Sodium Chloride (Cubicin/NS) 100 ml @ 200 mls/hr Q48H IVPB Last administered on 08/06/16 21:14; Admin Dose 200 MLS/HR; Start 08/02/16 at 22:00 JERO GALAN M.D. Aug 08, 2016 14:41
[2016-08-08 15:06] LABS: ALBUMIN 2.2 g/dl (3.3-4.9); TOTAL PROTEIN 5.2 g/dl (6.1-8.1)
[2016-08-08 15:31] LABS: ADD UMIC YES; UR ASCORBIC ACID NEGATIVE (NEGATIVE); UR BILIRUBIN (Dip) NEGATIVE (NEGATIVE); UR BLOOD (Dip) 3+ mg/dL (NEGATIVE); UR CLARITY CLOUDY (CLEAR); UR COLOR YELLOW (YELLOW); UR GLUCOSE (Dip) NEGATIVE (NEGATIVE); UR KETONES (Dip) NEGATIVE (NEGATIVE); UR LEUKOCYTE ESTERASE (Dip) 1+ Leu/ul (NEGATIVE); UR NITRITE (Dip) NEGATIVE (NEGATIVE); UR RBC > 182 /HPF (0-5); UR SPECIFIC GRAVITY (Dip) 1.012 (1.003-1.030); UR TOTAL PROTEIN (Dip) 2+ mg/dl (NEGATIVE); UR UROBILINOGEN (Dip) NEGATIVE (NEGATIVE)
--- NOTE | 2016-08-08 15:59 | CONS ---
Date/Time of Note Date/Time of Note DATE: 08/08/16 TIME: 15:58 Assessment/Plan Assessment/Plan Additional Assessment/Plan 1. Acute kidney injury, Pre- Renal R/o ATN, Avila no signs of obstructive Uropathy, Hx of BPH.- Non Oliguric, Resolvd 2. Hypertension. Normotensive at this time. 3. Chronic obstructive pulmonary disease. 4. Benign prostatic hypertrophy. 5. Loculated pleural effusion. 6. Multiple decubiti 7. Cerebrovascular accident. 8. Dyslipidemia. 9. Dementia with behavioral disturbance. 10. Metabolic Acidosis-stable 11. Hypernatremia 12. CKD Stage IV 13. Hypokalemia Renal function is stable Pt is non oliguric, Na improving, Supplement K Cont gentle D5W with KCL Repeat Chem in am. Consultation Date/Type/Reason Admit Date/Time July 09, 2016 at 12:24 Type of Consultation: Renal Referring Provider: RONNIE PATEL MD 24 HR Interval Summary Free Text/Dictation No new complaints Constitutional: No requiring O2 Exam/Review of Systems Vital Signs Vitals Vital Signs Date Time Temp Pulse Resp B/P Pulse Ox O2 Delivery O2 Flow Rate FiO2 08/08/16 08:31 98.5 78 20 132/64 96 08/04/16 20:00 Nasal Cannula 2.0 Intake and Output 08/07/16 08/07/16 08/08/16 15:00 23:00 07:00 Intake Total 320 ml 1660 ml 1120 ml Output Total 400 ml 500 ml Balance 320 ml 1260 ml 620 ml Exam Constitutional: alert, No distress ENMT: mucosa pink and moist Respiratory: No diminished breath sounds, No labored breathing Cardiovascular: regular rate and rhythm Gastrointestinal: non-tender, soft Neurological: No lethargic Skin: No diaphoresis Results Result Diagram: 08/08/16 1230 08/08/16 0520 Results 24 hrs Laboratory Tests Test 08/08/16 05:20 08/08/16 12:30 08/08/16 13:40 08/08/16 14:05 White Blood Count 34.3 #H 37.1 H Red Blood Count 3.08 L 2.97 L Hemoglobin 9.1 L 8.8 L Hematocrit 27.5 L 26.0 L Mean Corpuscular Volume 89.3 87.5 Mean Corpuscular Hemoglobin 29.5 29.6 Mean Corpuscular Hemoglobin Concent 33.1 33.8 Red Cell Distribution Width 15.4 H 15.4 H Platelet Count 195 # 226 Mean Platelet Volume 10.4 10.7 H Neutrophils % 68.0 69.0 Band Neutrophils % 15.0 H 18.0 H Lymphocytes % 10.0 L 6.0 L Monocytes % 4.0 3.0 Eosinophils % 3.0 4.0 Neutrophils # 23.3 H 25.6 H Lymphocytes # 3.4 H 2.2 Monocytes # 1.4 H 1.1 H Eosinophils # 1.0 H 1.5 H Sodium Level 145 H Potassium Level 3.2 L Chloride Level 119 H Carbon Dioxide Level 18 L Anion Gap 11 Blood Urea Nitrogen 41 H Creatinine 2.62 H Glucose Level 94 Calcium Level 7.2 L Differential Comment MANUAL DIFF Large Platelets OCCASIONAL Polychromasia OCCASIONAL Urine Color YELLOW Urine Clarity CLOUDY A Urine pH 5.0 Urine Specific [place] 1.012 Urine Ketones NEGATIVE Urine Nitrite NEGATIVE Urine Bilirubin NEGATIVE Urine Urobilinogen NEGATIVE Urine Leukocyte Esterase 1+ H Urine Microscopic RBC > 182 H Urine Microscopic WBC 34 H Urine Hemoglobin 3+ H Urine Glucose NEGATIVE Urine Total Protein 2+ H Lactic Acid Level 2.2 Total Bilirubin 0.0 L Direct Bilirubin 0.00 Indirect Bilirubin 0.0 Aspartate Amino Transf (AST/SGOT) 31 Alanine Aminotransferase (ALT/SGPT) 34 Alkaline Phosphatase 82 Total Protein 5.2 L Albumin 2.2 L Medications Medications Current Medications Acetaminophen (Tylenol Tab) 500 mg Q6H PRN PO PAIN AND OR ELEVATED TEMP; Start 07/09/16 at 20:30 Ondansetron HCl (Zofran Inj) 4 mg Q6H PRN IV NAUSEA AND/OR VOMITING; Start at 20:30 Aspirin (Aspirin) 81 mg DAILY PO Last administered on 08/08/16 08:43; Admin Dose 81 MG; Start 07/10/16 at 09:00 Benztropine Mesylate (Cogentin) 1 mg BID PO Last administered on 08/08/16 08: 43; Admin Dose 1 MG; Start 07/09/16 at 21:00 Finasteride (Proscar) 5 mg DAILY PO Last administered on 08/08/16 08:43; Admin Dose 5 MG; Start 07/10/16 at 09:00 Acetaminophen/ Hydrocodone Bitart ([place] (5/325)) 1 tab Q4 PRN PO SEVERE PAIN LEVEL 7-10 Last administered on 07/15/16 16:21; Admin Dose 1 TAB; Start at 20:30 Latanoprost (Xalatan) 1 drop QHS BOTH EYES Last administered on 08/07/16 20:08 ; Admin Dose 1 DROP; Start 07/09/16 at 21:00 Multivitamins Therapeutic (Theragran) 1 tab DAILY PO Last administered on 08:43; Admin Dose 1 TAB; Start 07/10/16 at 09:00 Olanzapine (Zyprexa) 5 mg QHS PO Last administered on 08/07/16 20:09; Admin Dose 5 MG; Start 07/09/16 at 21:00 Zinc Sulfate (Zinc Sulfate) 220 mg DAILY PO Last administered on 08/08/16 08: 42; Admin Dose 220 MG; Start 07/10/16 at 09:00 Acetaminophen (Tylenol Supp) 650 mg Q6H PRN [place] ELEVATED TEMPERATURE Last administered on 07/10/16 09:51; Admin Dose 650 MG; Start 07/10/16 at 09:30 Collagenase (Santyl) 1 applic DAILY TOP Last administered on 08/07/16 09:55; Admin Dose 1 APPLIC; Start 07/10/16 at 14:00 Bisacodyl (Dulcolax) 10 mg BID PO Last administered on 08/08/16 08:42; Admin Dose 10 MG; Start 07/13/16 at 15:00 Benazepril HCl (Lotensin) 20 mg DAILY PO Last administered on 08/08/16 08:43; Admin Dose 20 MG; Start 07/16/16 at 09:00 Zolpidem Tartrate (Ambien) 2.5 mg HS PRN PO INSOMNIA; Start 07/17/16 at 19:00 Epoetin Zana (Epogen (Esrd)) 6,000 units TuThSa@17 SC Last administered on 08/07 17:42; Admin Dose 6,000 UNITS; Start 07/17/16 at 20:00 Miscellaneous Information (Pending Santyl Order For Wound Care) This patient ellis... PRN PRN XX WOUND CARE; Start 07/18/16 at 07:00 Lorazepam (Ativan) 0.5 mg Q6H PRN PO ANXEITY Last administered on 07/19/16 22: 28; Admin Dose 0.5 MG; Start 07/18/16 at 16:00 Clonidine (Catapres) 0.1 mg TID PO Last administered on 08/07/16 09:56; Admin Dose 0.1 MG; Start 07/19/16 at 09:00; Status Future Hold Vancomycin HCl 125 mg 125 mg Q6 PO Last administered on 08/08/16 12:27; Admin Dose 125 MG; Start 07/21/16 at 19:00 Metronidazole (Flagyl 500 Mg (Pmx)) 100 ml @ 100 mls/hr Q8 IVPB Last administered on 08/08/16 13:38; Admin Dose 100 MLS/HR; Start 07/22/16 at 16:30 Lactobacillus Acidophilus/ Rhamnosus (Culturelle) 1 cap BID PO Last administered on 08/08/16 08:43; Admin Dose 1 CAP; Start 07/23/16 at 21:00 Ascorbic Acid (Vitamin C) 500 mg DAILY PO Last administered on 08/08/16 08:43 ; Admin Dose 500 MG; Start 07/26/16 at 09:00 Metoprolol Tartrate (Lopressor) 25 mg BID PO Last administered on 08/08/16 08: 43; Admin Dose 25 MG; Start 07/28/16 at 21:00 Hydralazine HCl (Apresoline) 10 mg Q4H PRN IV ELEVATED BLOOD PRESSURE Last administered on 07/29/16 14:50; Admin Dose 10 MG; Start 07/28/16 at 20:30 Nifedipine (Procardia Xl) 60 mg QAM PO Last administered on 08/08/16 08:44; Admin Dose 60 MG; Start 08/02/16 at 09:00 Nifedipine 30 mg 30 mg QHS PO Last administered on 08/07/16 20:10; Admin Dose 30 MG; Start 08/01/16 at 21:00 Daptomycin 470 mg/ Sodium Chloride 100 ml @ 200 mls/hr Q48H IVPB Last administered on 08/06/16 21:14; Admin Dose 200 MLS/HR; Start 08/02/16 at 22:00 Meropenem (Merrem 500 Mg/ 100 ml (Pmx)) 100 ml @ 200 mls/hr Q12 IVPB ; Start at 17:00 TACOS GREEN MD Aug 08, 2016 15:59
[2016-08-08] MEDS: COLLAGENASE 30 GM TUBE TOP SCH (16:00)
--- NOTE | 2016-08-08 17:28 | RADRPT ---
PROCEDURE: XR Chest. CLINICAL INDICATION: A leukocytosis and shortness of breath. TECHNIQUE: Single view of the chest was obtained. COMPARISON: Chest x-ray 07/20/2016 at 08:19 a.m. FINDINGS: The soft tissues are normal. There is a dextroscoliosis of the mid thoracic spine with degenerative osteophytes in the thoracic spine. The heart is enlarged. The cardiomediastinal silhouette and hi lar structures are normal. The pulmonary vasculature is increased. There are vascular calcification s in the aortic arch. There are bilateral perihilar and basilar interstitial and alveolar infiltrate s. There are bilateral pleural effusions. The right pleural effusion increased in size over the in terval. IMPRESSION: 1. Cardiomegaly with congestive heart failure and worsening interstitial pulmonary edema. Pneumonia with heart failure could present this fashion. 2. Bilateral pleural effusions which have increased in size since the earlier study. RPTAT:AAJJ Physician Jarret Date Time Electronically viewed and signed by Physician Jarret on 08/08/2016 17:28 ANYA/
[2016-08-08] MEDS: MEROPENEM 500 MG/100 ML (PMX) 100 ML IVPB SCH (17:38)
--- NOTE | 2016-08-08 19:04 | PN ---
Date/Time of Note Date/Time of Note DATE: 08/08/16 TIME: 18:56 Assessment/Plan VTE Prophylaxis VTE Prophylaxis Intervention: SCD's Lines/Catheters IV [facility]ter Type (from [facility]): Peripheral IV Urinary Cath still in place: Yes Reason Cath still needed: urinary retention Assessment/Plan Chief Complaint/Hosp Course Patient with leukocytosis, no fever. X-ray with CHF and possible pneumonia will hold IV fluids, potassium replaced. Assessment/Plan - Recurrent sepsis with possible pneumonia, started on meropenem by ID. Dr. Langford is following an infection disease consultation. Follow up on cultures. - Hypokalemia, potassium replaced, continue to monitor. - Osteomyelitis of bilateral heels, continue daptomycin until August 25 per ID. - Bilateral heel wounds, patient is evaluated by Dr. Bell in podiatry consultation with recommendation of continue current wound care and not to proceed with debridement. - C. difficile colitis. Dr. Henderson is following an infection disease consultation. Continue oral vancomycin and intravenous metronidazole. - Colitis ulcers per colonoscopy, continue to follow-up gastroenterology recommendations. - Infected wounds on bilateral lower extremities. Continue antibiotics per ID. - Acute kidney injury on chronic kidney disease stage III with electrolyte imbalances. Dr. Srinivasan is following in nephrology consultation. - Acute metabolic encephalopathy, resolving. - Hypertension. Continue clonidine, Procardia and benazepril - Chronic obstructive pulmonary disease. Continue DuoNeb. - Benign prostatic hypertrophy. Continue Flomax. - Multiple decubitus ulcers present on admission. Continue local wound care, offloading. - Acute cerebrovascular accident. Continue aspirin. - Dyslipidemia. Continue Lipitor. - Dementia with behavioral disturbance. Continue Zyprexa. Further recommendations based on clinical course. Plan of care discussed with Dr. Rene. Problems: Exam/Review of Systems Vital Signs Vitals Vital Signs Date Time Temp Pulse Resp B/P Pulse Ox O2 Delivery O2 Flow Rate FiO2 08/08/16 08:31 98.5 78 20 132/64 96 08/04/16 20:00 Nasal Cannula 2.0 Intake and Output 08/07/16 08/07/16 08/08/16 15:00 23:00 07:00 Intake Total 320 ml 1660 ml 1120 ml Output Total 400 ml 500 ml Balance 320 ml 1260 ml 620 ml Exam Constitutional: alert, frail Psych: confusion Head: normocephalic Neck: supple Respiratory: normal air movement Cardiovascular: nl pulses Gastrointestinal: non-tender, soft Genitourinary - Male: other (Avila catheter) Extremities: edema Skin: other (Multiple wounds) Results Result Diagram: 08/08/16 1230 08/08/16 0520 Results 24 hrs Laboratory Tests Test 08/08/16 05:20 08/08/16 12:30 08/08/16 13:40 08/08/16 14:05 White Blood Count 34.3 #H 37.1 H Red Blood Count 3.08 L 2.97 L Hemoglobin 9.1 L 8.8 L Hematocrit 27.5 L 26.0 L Mean Corpuscular Volume 89.3 87.5 Mean Corpuscular Hemoglobin 29.5 29.6 Mean Corpuscular Hemoglobin Concent 33.1 33.8 Red Cell Distribution Width 15.4 H 15.4 H Platelet Count 195 # 226 Mean Platelet Volume 10.4 10.7 H Neutrophils % 68.0 69.0 Band Neutrophils % 15.0 H 18.0 H Lymphocytes % 10.0 L 6.0 L Monocytes % 4.0 3.0 Eosinophils % 3.0 4.0 Neutrophils # 23.3 H 25.6 H Lymphocytes # 3.4 H 2.2 Monocytes # 1.4 H 1.1 H Eosinophils # 1.0 H 1.5 H Sodium Level 145 H Potassium Level 3.2 L Chloride Level 119 H Carbon Dioxide Level 18 L Anion Gap 11 Blood Urea Nitrogen 41 H Creatinine 2.62 H Glucose Level 94 Calcium Level 7.2 L Differential Comment MANUAL DIFF Large Platelets OCCASIONAL Polychromasia OCCASIONAL Urine Color YELLOW Urine Clarity CLOUDY A Urine pH 5.0 Urine Specific [place] 1.012 Urine Ketones NEGATIVE Urine Nitrite NEGATIVE Urine Bilirubin NEGATIVE Urine Urobilinogen NEGATIVE Urine Leukocyte Esterase 1+ H Urine Microscopic RBC > 182 H Urine Microscopic WBC 34 H Urine Hemoglobin 3+ H Urine Glucose NEGATIVE Urine Total Protein 2+ H Lactic Acid Level 2.2 Total Bilirubin 0.0 L Direct Bilirubin 0.00 Indirect Bilirubin 0.0 Aspartate Amino Transf (AST/SGOT) 31 Alanine Aminotransferase (ALT/SGPT) 34 Alkaline Phosphatase 82 Total Protein 5.2 L Albumin 2.2 L Medications Medications Current Medications Acetaminophen (Tylenol Tab) 500 mg Q6H PRN PO PAIN AND OR ELEVATED TEMP; Start 07/09/16 at 20:30 Ondansetron HCl (Zofran Inj) 4 mg Q6H PRN IV NAUSEA AND/OR VOMITING; Start at 20:30 Aspirin (Aspirin) 81 mg DAILY PO Last administered on 08/08/16 08:43; Admin Dose 81 MG; Start 07/10/16 at 09:00 Benztropine Mesylate (Cogentin) 1 mg BID PO Last administered on 08/08/16 08: 43; Admin Dose 1 MG; Start 07/09/16 at 21:00 Finasteride (Proscar) 5 mg DAILY PO Last administered on 08/08/16 08:43; Admin Dose 5 MG; Start 07/10/16 at 09:00 Acetaminophen/ Hydrocodone Bitart ([place] (5/325)) 1 tab Q4 PRN PO SEVERE PAIN LEVEL 7-10 Last administered on 07/15/16 16:21; Admin Dose 1 TAB; Start at 20:30 Latanoprost (Xalatan) 1 drop QHS BOTH EYES Last administered on 08/07/16 20:08 ; Admin Dose 1 DROP; Start 07/09/16 at 21:00 Multivitamins Therapeutic (Theragran) 1 tab DAILY PO Last administered on 08:43; Admin Dose 1 TAB; Start 07/10/16 at 09:00 Olanzapine (Zyprexa) 5 mg QHS PO Last administered on 08/07/16 20:09; Admin Dose 5 MG; Start 07/09/16 at 21:00 Zinc Sulfate (Zinc Sulfate) 220 mg DAILY PO Last administered on 08/08/16 08: 42; Admin Dose 220 MG; Start 07/10/16 at 09:00 Acetaminophen (Tylenol Supp) 650 mg Q6H PRN [place] ELEVATED TEMPERATURE Last administered on 07/10/16 09:51; Admin Dose 650 MG; Start 07/10/16 at 09:30 Collagenase (Santyl) 1 applic DAILY TOP Last administered on 08/08/16 16:00; Admin Dose 1 APPLIC; Start 07/10/16 at 14:00 Bisacodyl (Dulcolax) 10 mg BID PO Last administered on 08/08/16 08:42; Admin Dose 10 MG; Start 07/13/16 at 15:00 Benazepril HCl (Lotensin) 20 mg DAILY PO Last administered on 08/08/16 08:43; Admin Dose 20 MG; Start 07/16/16 at 09:00 Zolpidem Tartrate (Ambien) 2.5 mg HS PRN PO INSOMNIA; Start 07/17/16 at 19:00 Epoetin Zana (Epogen (Esrd)) 6,000 units TuThSa@17 SC Last administered on 08/07 17:42; Admin Dose 6,000 UNITS; Start 07/17/16 at 20:00 Miscellaneous Information (Pending Santyl Order For Wound Care) This patient ellis... PRN PRN XX WOUND CARE; Start 07/18/16 at 07:00 Lorazepam (Ativan) 0.5 mg Q6H PRN PO ANXEITY Last administered on 07/19/16 22: 28; Admin Dose 0.5 MG; Start 07/18/16 at 16:00 Clonidine (Catapres) 0.1 mg TID PO Last administered on 08/07/16 09:56; Admin Dose 0.1 MG; Start 07/19/16 at 09:00; Status Future Hold Vancomycin HCl 125 mg 125 mg Q6 PO Last administered on 08/08/16 17:38; Admin Dose 125 MG; Start 07/21/16 at 19:00 Metronidazole (Flagyl 500 Mg (Pmx)) 100 ml @ 100 mls/hr Q8 IVPB Last administered on 08/08/16 13:38; Admin Dose 100 MLS/HR; Start 07/22/16 at 16:30 Lactobacillus Acidophilus/ Rhamnosus (Culturelle) 1 cap BID PO Last administered on 08/08/16 08:43; Admin Dose 1 CAP; Start 07/23/16 at 21:00 Ascorbic Acid (Vitamin C) 500 mg DAILY PO Last administered on 08/08/16 08:43 ; Admin Dose 500 MG; Start 07/26/16 at 09:00 Metoprolol Tartrate (Lopressor) 25 mg BID PO Last administered on 08/08/16 08: 43; Admin Dose 25 MG; Start 07/28/16 at 21:00 Hydralazine HCl (Apresoline) 10 mg Q4H PRN IV ELEVATED BLOOD PRESSURE Last administered on 07/29/16 14:50; Admin Dose 10 MG; Start 6/12/17 at 20:30 Nifedipine (Procardia Xl) 60 mg QAM PO Last administered on 08/08/16 08:44; Admin Dose 60 MG; Start 08/02/16 at 09:00 Nifedipine 30 mg 30 mg QHS PO Last administered on 08/07/16 20:10; Admin Dose 30 MG; Start 08/01/16 at 21:00 Daptomycin 470 mg/ Sodium Chloride 100 ml @ 200 mls/hr Q48H IVPB Last administered on 08/06/16 21:14; Admin Dose 200 MLS/HR; Start 08/02/16 at 22:00 Meropenem (Merrem 500 Mg/ 100 ml (Pmx)) 100 ml @ 200 mls/hr Q12 IVPB Last administered on 08/08/16 17:38; Admin Dose 200 MLS/HR; Start 08/08/16 at 17:00 ALE MCCONNELL Aug 08, 2016 19:04
[2016-08-08] MEDS ORDERED: POTASSIUM CHLORIDE 20 MEQ POWDER FOR ORAL SOLN PO ONE ×2 (19:30)
[2016-08-08 19:44] VITALS: BP 116/61; RESP 18
[2016-08-08] MEDS: OLANZAPINE 5 MG TAB PO SCH (21:46)
[2016-08-08] MEDS: LATANOPROST 0.005% 2.5 ML OPH BOTH EYES SCH (21:47)
[2016-08-08] MEDS: DAPTOMYCIN 470 MG in SOD CHLORIDE 0.9% 100 ML IVPB SCH (21:47)
[2016-08-09] MEDS: VANCOMYCIN HCL 250 MG/5ML POSYG PO SCH ×4 (01:03→18:34)
[2016-08-09] MEDS: metroNIDAZOLE 500 MG/NS (PMX) 100 ML IVPB SCH ×3 (05:28→21:59)
[2016-08-09 05:45] LABS: ADD SCAN DIFF NO
[2016-08-09 05:51] LABS: ABNORMAL IP MESSAGE 1; BASOPHIL # 0.1 10^3/ul (0.0-0.1); BASOPHILS % 0.2 % (0.0-2.0); EOSINOPHILS # 1.1 10^3/ul (0.0-0.5); EOSINOPHILS % 3.5 % (0.0-7.0); HEMOGLOBIN 8.2 g/dl (14.0-18.0); LYMPHOCYTES # 2.5 10^3/ul (0.8-2.9); LYMPHOCYTES % 7.9 % (15.0-51.0); MEAN CORPUSCULAR HEMOGLOBIN 29.4 pg (29.0-33.0); MEAN CORPUSCULAR HGB CONC 32.8 g/dl (32.0-37.0); MEAN CORPUSCULAR VOLUME 89.6 fl (82.0-101.0); MEAN PLATELET VOLUME 10.1 fl (7.4-10.4); MONOCYTE # 2.1 10^3/ul (0.3-0.9); MONOCYTES % 6.7 % (0.0-11.0); NEUTROPHIL # 24.6 10^3/ul (1.6-7.5); NEUTROPHILS % 77.4 % (39.0-77.0); NUCLEATED RED BLOOD CELLS # 0.1 10^3/ul (0.0-0.0); NUCLEATED RED BLOOD CELLS% 0.2 /100WBC (0.0-0.0); PLATELET COUNT 246 10^3/UL (140-415); RED BLOOD COUNT 2.79 10^6/ul (4.70-6.10); RED CELL DISTRIBUTION WIDTH 15.6 % (11.5-14.5); WHITE BLOOD COUNT 31.8 10^3/ul (4.8-10.8)
[2016-08-09 06:16] LABS: CREATININE 2.31 mg/dl (0.61-1.24); POTASSIUM 3.1 mmol/L (3.5-5.1)
[2016-08-09 08:26] VITALS: BP 112/61; RESP 18
[2016-08-09] MEDS: NIFEdipine (XL) 30 MG TAB PO SCH ×2 (09:00→20:24)
[2016-08-09] MEDS: BENAZEPRIL 20 MG TAB PO SCH (09:00)
[2016-08-09] MEDS: CALCIUM CARBONATE 750 MG CHEW TAB PO SCH ×3 (09:57→18:34)
[2016-08-09] MEDS: BENZTROPINE 1 MG TAB PO SCH ×2 (09:57→20:23)
[2016-08-09] MEDS: BISACODYL (EC) 5 MG TAB PO SCH ×2 (09:57→20:23)
[2016-08-09] MEDS: LACTOBACILLUS RHAMNOSUS CAP PO SCH ×2 (09:57→20:23)
[2016-08-09] MEDS: ZINC SULFATE 220 MG CAP PO SCH (09:57)
[2016-08-09] MEDS: FINASTERIDE 5 MG TAB PO SCH (09:57)
[2016-08-09] MEDS: ASPIRIN 81 MG TAB PO SCH (09:57)
[2016-08-09] MEDS: MULTIVITAMINS THERAPEUTIC TAB PO SCH (09:57)
[2016-08-09] MEDS: PANTOPRAZOLE (EC) 40 MG TAB PO SCH (09:57)
[2016-08-09] MEDS: MEROPENEM 500 MG/100 ML (PMX) 100 ML IVPB SCH ×2 (09:58→20:23)
[2016-08-09] MEDS: METOPROLOL 25 MG TAB PO SCH ×2 (09:59→20:24)
[2016-08-09] MEDS: ASCORBIC ACID 500 MG TAB PO SCH (10:00)
[2016-08-09] MEDS: COLLAGENASE 30 GM TUBE TOP SCH (10:00)
--- NOTE | 2016-08-09 11:40 | PN ---
Date/Time of Note Date/Time of Note DATE: 08/09/16 TIME: 11:39 Assessment/Plan VTE Prophylaxis VTE Prophylaxis Intervention: other Lines/Catheters IV Catheter Type (from [facility]): Saline Lock Urinary Cath still in place: Yes Reason Cath still needed: skin wounds contaminated by urine Assessment/Plan Chief Complaint/Hosp Course - Recurrent sepsis with possible pneumonia, started on meropenem by ID. Dr. Langford is following an infection disease consultation. Follow up on cultures. - Hypokalemia, potassium replaced, continue to monitor. - Osteomyelitis of bilateral heels, continue daptomycin until August 25 per ID. - Bilateral heel wounds, patient is evaluated by Dr. Bell in podiatry consultation with recommendation of continue current wound care and not to proceed with debridement. - C. difficile colitis. Dr. Henderson is following an infection disease consultation. Continue oral vancomycin and intravenous metronidazole. - Colitis ulcers per colonoscopy, continue to follow-up gastroenterology recommendations. - Infected wounds on bilateral lower extremities. Continue antibiotics per ID. - Acute kidney injury on chronic kidney disease stage III with electrolyte imbalances. Dr. Srinivasan is following in nephrology consultation. - Acute metabolic encephalopathy, resolving. - Hypertension. Continue clonidine, Procardia and benazepril - Chronic obstructive pulmonary disease. Continue DuoNeb. - Benign prostatic hypertrophy. Continue Flomax. - Multiple decubitus ulcers present on admission. Continue local wound care, offloading. - Acute cerebrovascular accident. Continue aspirin. - Dyslipidemia. Continue Lipitor. - Dementia with behavioral disturbance. Continue Zyprexa. Problems: Subjective 24 Hr Interval Summary Free Text/Dictation Patient has no complaints, verbally appropriate Exam/Review of Systems Vital Signs Vitals Vital Signs Date Time Temp Pulse Resp B/P Pulse Ox O2 Delivery O2 Flow Rate FiO2 08/09/16 08:26 97.9 79 18 112/61 90 Intake and Output 08/08/16 08/08/16 08/09/16 15:00 23:00 07:00 Intake Total 200 ml 720 ml 400 ml Output Total 50 ml 500 ml Balance 200 ml 670 ml -100 ml Exam Constitutional: well developed Head: atraumatic, normocephalic Neck: supple Respiratory: diminished breath sounds Cardiovascular: regular rate and rhythm Gastrointestinal: non-tender, soft Extremities: normal pulses Results Result Diagram: 08/09/1652108/09/16521 Results 24 hrs Laboratory Tests Test 08/08/16 12:30 08/08/16 13:40 08/08/16 14:05 08/09/16 05:22 White Blood Count 37.1 H 31.8 H Red Blood Count 2.97 L 2.79 L Hemoglobin 8.8 L 8.2 L Hematocrit 26.0 L 25.0 L Mean Corpuscular Volume 87.5 89.6 Mean Corpuscular Hemoglobin 29.6 29.4 Mean Corpuscular Hemoglobin Concent 33.8 32.8 Red Cell Distribution Width 15.4 H 15.6 H Platelet Count 226 246 Mean Platelet Volume 10.7 H 10.1 Neutrophils % 69.0 77.4 H Band Neutrophils % 18.0 H Lymphocytes % 6.0 L 7.9 L Monocytes % 3.0 6.7 Eosinophils % 4.0 3.5 Neutrophils # 25.6 H 24.6 H Lymphocytes # 2.2 2.5 Monocytes # 1.1 H 2.1 H Eosinophils # 1.5 H 1.1 H Differential Comment MANUAL DIFF Large Platelets OCCASIONAL Polychromasia OCCASIONAL Urine Color YELLOW Urine Clarity CLOUDY A Urine pH 5.0 Urine Specific [place] 1.012 Urine Ketones NEGATIVE Urine Nitrite NEGATIVE Urine Bilirubin NEGATIVE Urine Urobilinogen NEGATIVE Urine Leukocyte Esterase 1+ H Urine Microscopic RBC > 182 H Urine Microscopic WBC 34 H Urine Hemoglobin 3+ H Urine Glucose NEGATIVE Urine Total Protein 2+ H Lactic Acid Level 2.2 Total Bilirubin 0.0 L Direct Bilirubin 0.00 Indirect Bilirubin 0.0 Aspartate Amino Transf (AST/SGOT) 31 Alanine Aminotransferase (ALT/SGPT) 34 Alkaline Phosphatase 82 Total Protein 5.2 L Albumin 2.2 L Basophils % 0.2 Nucleated Red Blood Cells % 0.2 H Basophils # 0.1 Nucleated Red Blood Cells # 0.1 H Sodium Level 145 H Potassium Level 3.1 L Chloride Level 120 H Carbon Dioxide Level 16 L Anion Gap 12 Blood Urea Nitrogen 38 H Creatinine 2.31 H Glucose Level 86 Calcium Level 7.0 L Medications Medications Current Medications Acetaminophen (Tylenol Tab) 500 mg Q6H PRN PO PAIN AND OR ELEVATED TEMP; Start 07/09/16 at 20:30 Ondansetron HCl (Zofran Inj) 4 mg Q6H PRN IV NAUSEA AND/OR VOMITING; Start at 20:30 Aspirin (Aspirin) 81 mg DAILY PO Last administered on 08/09/16 09:57; Admin Dose 81 MG; Start 07/10/16 at 09:00 Benztropine Mesylate (Cogentin) 1 mg BID PO Last administered on 08/09/16 09: 57; Admin Dose 1 MG; Start 07/09/16 at 21:00 Finasteride (Proscar) 5 mg DAILY PO Last administered on 08/09/16 09:57; Admin Dose 5 MG; Start 07/10/16 at 09:00 Acetaminophen/ Hydrocodone Bitart ([place] (5/325)) 1 tab Q4 PRN PO SEVERE PAIN LEVEL 7-10 Last administered on 07/15/16 16:21; Admin Dose 1 TAB; Start at 20:30 Latanoprost (Xalatan) 1 drop QHS BOTH EYES Last administered on 08/08/16 21:47 ; Admin Dose 1 DROP; Start 07/09/16 at 21:00 Multivitamins Therapeutic (Theragran) 1 tab DAILY PO Last administered on 09:57; Admin Dose 1 TAB; Start 07/10/16 at 09:00 Olanzapine (Zyprexa) 5 mg QHS PO Last administered on 08/08/16 21:46; Admin Dose 5 MG; Start 07/09/16 at 21:00 Zinc Sulfate (Zinc Sulfate) 220 mg DAILY PO Last administered on 08/09/16 09: 57; Admin Dose 220 MG; Start 07/10/16 at 09:00 Acetaminophen (Tylenol Supp) 650 mg Q6H PRN [place] ELEVATED TEMPERATURE Last administered on 07/10/16 09:51; Admin Dose 650 MG; Start 07/10/16 at 09:30 Collagenase (Santyl) 1 applic DAILY TOP Last administered on 08/09/16 10:00; Admin Dose 1 APPLIC; Start 07/10/16 at 14:00 Bisacodyl (Dulcolax) 10 mg BID PO Last administered on 08/09/16 09:57; Admin Dose 10 MG; Start 07/13/16 at 15:00 Benazepril HCl (Lotensin) 20 mg DAILY PO Last administered on 08/08/16 08:43; Admin Dose 20 MG; Start 07/16/16 at 09:00 Zolpidem Tartrate (Ambien) 2.5 mg HS PRN PO INSOMNIA; Start 07/17/16 at 19:00 Epoetin Zana (Epogen (Esrd)) 6,000 units TuThSa@17 SC Last administered on 08/07 17:42; Admin Dose 6,000 UNITS; Start 07/17/16 at 20:00 Miscellaneous Information (Pending Santyl Order For Wound Care) This patient ellis... PRN PRN XX WOUND CARE; Start 07/18/16 at 07:00 Lorazepam (Ativan) 0.5 mg Q6H PRN PO ANXEITY Last administered on 07/19/16 22: 28; Admin Dose 0.5 MG; Start 07/18/16 at 16:00 Clonidine (Catapres) 0.1 mg TID PO Last administered on 08/07/16 09:56; Admin Dose 0.1 MG; Start 07/19/16 at 09:00; Status Future Hold Vancomycin HCl 125 mg 125 mg Q6 PO Last administered on 08/09/16 05:29; Admin Dose 125 MG; Start 07/21/16 at 19:00 Metronidazole (Flagyl 500 Mg (Pmx)) 100 ml @ 100 mls/hr Q8 IVPB Last administered on 08/09/16 05:28; Admin Dose 100 MLS/HR; Start 07/22/16 at 16:30 Lactobacillus Acidophilus/ Rhamnosus (Culturelle) 1 cap BID PO Last administered on 08/09/16 09:57; Admin Dose 1 CAP; Start 07/23/16 at 21:00 Ascorbic Acid (Vitamin C) 500 mg DAILY PO Last administered on 08/09/16 10:00 ; Admin Dose 500 MG; Start 07/26/16 at 09:00 Metoprolol Tartrate (Lopressor) 25 mg BID PO Last administered on 08/09/16 09: 59; Admin Dose 25 MG; Start 07/28/16 at 21:00 Hydralazine HCl (Apresoline) 10 mg Q4H PRN IV ELEVATED BLOOD PRESSURE Last administered on 07/29/16 14:50; Admin Dose 10 MG; Start 07/28/16 at 20:30 Nifedipine (Procardia Xl) 60 mg QAM PO Last administered on 08/08/16 08:44; Admin Dose 60 MG; Start 08/02/16 at 09:00 Nifedipine 30 mg 30 mg QHS PO Last administered on 08/08/16 21:45; Admin Dose 30 MG; Start 08/01/16 at 21:00 Daptomycin 470 mg/ Sodium Chloride 100 ml @ 200 mls/hr Q48H IVPB Last administered on 08/08/16 21:47; Admin Dose 200 MLS/HR; Start 08/02/16 at 22:00 Meropenem (Merrem 500 Mg/ 100 ml (Pmx)) 100 ml @ 200 mls/hr Q12 IVPB Last administered on 08/09/16 09:58; Admin Dose 200 MLS/HR; Start 08/08/16 at 17:00 WINIFRED CHAVEZ Aug 09, 2016 11:40
--- NOTE | 2016-08-09 11:57 | CONS ---
Date/Time of Note Date/Time of Note DATE: 08/09/16 TIME: 11:55 Assessment/Plan Assessment/Plan Additional Assessment/Plan 1. Preoperative evaluation prior to debridement of heel decubitus ulcers.- negative trop x 3/NL EF by echo this admit with no sig contraindicated valve lesions. Ok to proceed to OR on BB continue pre-post op without further non- invasive eval at moderate risk - stable now 2. Hypertension-labile, con't Med rx 3. Abnormal electrocardiogram with anteroseptal Q's and normal ejection fraction by echo this admit. 4. Clostridium difficile Colitis- rx now 5. Renal failure- stable, no CP noted now 6. Encephalopathy- stable 7. Chronic obstructive pulmonary disease- no wheezing by exam now 8. History of cerebrovascular accident- con't chronic care. 9. Dyslipidemia. 10. Dementia. 11. Anemia. 12. Leukocytosis. 12. Coagulopathy. Consultation Date/Type/Reason Admit Date/Time July 09, 2016 at 12:24 Initial Consult Date 07/26/16 Type of Consultation: Renal Referring Provider: RONNIE PATEL MD 24 HR Interval Summary Free Text/Dictation No acute change - of tele - stable by exam ROS: No fever, no chills, no nausea, no vomiting, no diarrhea/constipation No recent weight changes No chest pain, no PND, no orthopnea No dizziness, blurred vision No thirst, no heat or cold intolerance Exam/Review of Systems Vital Signs Vitals Vital Signs Date Time Temp Pulse Resp B/P Pulse Ox O2 Delivery O2 Flow Rate FiO2 08/09/16 08:26 97.9 79 18 112/61 90 Intake and Output 08/08/16 08/08/16 08/09/16 15:00 23:00 07:00 Intake Total 200 ml 720 ml 400 ml Output Total 50 ml 500 ml Balance 200 ml 670 ml -100 ml Exam General: WN/WD/NAD, AOx 1-2 HEENT: Unicetric/atraumatic/EOMI (follows commands) NECK: JVD elevated, no thyromegaly Lymph: no lymphadenopathy HEART: regular with no S3, II/ systolic murmur at apex LUNGS: Coarse sounds ABD: soft, NT, ND, +BS : Intact Neuro: non focal SKIN: chronic changes EXT: trace edema Results Result Diagram: 08/09/1652108/09/16521 Results 24 hrs Laboratory Tests Test 08/08/16 12:30 08/08/16 13:40 08/08/16 14:05 08/09/16 05:22 White Blood Count 37.1 H 31.8 H Red Blood Count 2.97 L 2.79 L Hemoglobin 8.8 L 8.2 L Hematocrit 26.0 L 25.0 L Mean Corpuscular Volume 87.5 89.6 Mean Corpuscular Hemoglobin 29.6 29.4 Mean Corpuscular Hemoglobin Concent 33.8 32.8 Red Cell Distribution Width 15.4 H 15.6 H Platelet Count 226 246 Mean Platelet Volume 10.7 H 10.1 Neutrophils % 69.0 77.4 H Band Neutrophils % 18.0 H Lymphocytes % 6.0 L 7.9 L Monocytes % 3.0 6.7 Eosinophils % 4.0 3.5 Neutrophils # 25.6 H 24.6 H Lymphocytes # 2.2 2.5 Monocytes # 1.1 H 2.1 H Eosinophils # 1.5 H 1.1 H Differential Comment MANUAL DIFF Large Platelets OCCASIONAL Polychromasia OCCASIONAL Urine Color YELLOW Urine Clarity CLOUDY A Urine pH 5.0 Urine Specific [place] 1.012 Urine Ketones NEGATIVE Urine Nitrite NEGATIVE Urine Bilirubin NEGATIVE Urine Urobilinogen NEGATIVE Urine Leukocyte Esterase 1+ H Urine Microscopic RBC > 182 H Urine Microscopic WBC 34 H Urine Hemoglobin 3+ H Urine Glucose NEGATIVE Urine Total Protein 2+ H Lactic Acid Level 2.2 Total Bilirubin 0.0 L Direct Bilirubin 0.00 Indirect Bilirubin 0.0 Aspartate Amino Transf (AST/SGOT) 31 Alanine Aminotransferase (ALT/SGPT) 34 Alkaline Phosphatase 82 Total Protein 5.2 L Albumin 2.2 L Basophils % 0.2 Nucleated Red Blood Cells % 0.2 H Basophils # 0.1 Nucleated Red Blood Cells # 0.1 H Sodium Level 145 H Potassium Level 3.1 L Chloride Level 120 H Carbon Dioxide Level 16 L Anion Gap 12 Blood Urea Nitrogen 38 H Creatinine 2.31 H Glucose Level 86 Calcium Level 7.0 L Medications Medications Current Medications Acetaminophen (Tylenol Tab) 500 mg Q6H PRN PO PAIN AND OR ELEVATED TEMP; Start 07/09/16 at 20:30 Ondansetron HCl (Zofran Inj) 4 mg Q6H PRN IV NAUSEA AND/OR VOMITING; Start at 20:30 Aspirin (Aspirin) 81 mg DAILY PO Last administered on 08/09/16 09:57; Admin Dose 81 MG; Start 07/10/16 at 09:00 Benztropine Mesylate (Cogentin) 1 mg BID PO Last administered on 08/09/16 09: 57; Admin Dose 1 MG; Start 07/09/16 at 21:00 Finasteride (Proscar) 5 mg DAILY PO Last administered on 08/09/16 09:57; Admin Dose 5 MG; Start 07/10/16 at 09:00 Acetaminophen/ Hydrocodone Bitart ([place] (5/325)) 1 tab Q4 PRN PO SEVERE PAIN LEVEL 7-10 Last administered on 07/15/16 16:21; Admin Dose 1 TAB; Start at 20:30 Latanoprost (Xalatan) 1 drop QHS BOTH EYES Last administered on 08/08/16 21:47 ; Admin Dose 1 DROP; Start 07/09/16 at 21:00 Multivitamins Therapeutic (Theragran) 1 tab DAILY PO Last administered on 09:57; Admin Dose 1 TAB; Start 07/10/16 at 09:00 Olanzapine (Zyprexa) 5 mg QHS PO Last administered on 08/08/16 21:46; Admin Dose 5 MG; Start 07/09/16 at 21:00 Zinc Sulfate (Zinc Sulfate) 220 mg DAILY PO Last administered on 08/09/16 09: 57; Admin Dose 220 MG; Start 07/10/16 at 09:00 Acetaminophen (Tylenol Supp) 650 mg Q6H PRN [place] ELEVATED TEMPERATURE Last administered on 07/10/16 09:51; Admin Dose 650 MG; Start 07/10/16 at 09:30 Collagenase (Santyl) 1 applic DAILY TOP Last administered on 08/09/16 10:00; Admin Dose 1 APPLIC; Start 07/10/16 at 14:00 Bisacodyl (Dulcolax) 10 mg BID PO Last administered on 08/09/16 09:57; Admin Dose 10 MG; Start 07/13/16 at 15:00 Benazepril HCl (Lotensin) 20 mg DAILY PO Last administered on 08/08/16 08:43; Admin Dose 20 MG; Start 07/16/16 at 09:00 Zolpidem Tartrate (Ambien) 2.5 mg HS PRN PO INSOMNIA; Start 07/17/16 at 19:00 Epoetin Zana (Epogen (Esrd)) 6,000 units TuThSa@17 SC Last administered on 08/07 17:42; Admin Dose 6,000 UNITS; Start 07/17/16 at 20:00 Miscellaneous Information (Pending Santyl Order For Wound Care) This patient ellis... PRN PRN XX WOUND CARE; Start 07/18/16 at 07:00 Lorazepam (Ativan) 0.5 mg Q6H PRN PO ANXEITY Last administered on 07/19/16 22: 28; Admin Dose 0.5 MG; Start 07/18/16 at 16:00 Clonidine (Catapres) 0.1 mg TID PO Last administered on 08/07/16 09:56; Admin Dose 0.1 MG; Start 07/19/16 at 09:00; Status Future Hold Vancomycin HCl 125 mg 125 mg Q6 PO Last administered on 08/09/16 05:29; Admin Dose 125 MG; Start 07/21/16 at 19:00 Metronidazole (Flagyl 500 Mg (Pmx)) 100 ml @ 100 mls/hr Q8 IVPB Last administered on 08/09/16 05:28; Admin Dose 100 MLS/HR; Start 07/22/16 at 16:30 Lactobacillus Acidophilus/ Rhamnosus (Culturelle) 1 cap BID PO Last administered on 08/09/16 09:57; Admin Dose 1 CAP; Start 07/23/16 at 21:00 Ascorbic Acid (Vitamin C) 500 mg DAILY PO Last administered on 08/09/16 10:00 ; Admin Dose 500 MG; Start 07/26/16 at 09:00 Metoprolol Tartrate (Lopressor) 25 mg BID PO Last administered on 08/09/16 09: 59; Admin Dose 25 MG; Start 07/28/16 at 21:00 Hydralazine HCl (Apresoline) 10 mg Q4H PRN IV ELEVATED BLOOD PRESSURE Last administered on 07/29/16 14:50; Admin Dose 10 MG; Start 07/28/16 at 20:30 Nifedipine (Procardia Xl) 60 mg QAM PO Last administered on 08/08/16 08:44; Admin Dose 60 MG; Start 08/02/16 at 09:00 Nifedipine 30 mg 30 mg QHS PO Last administered on 08/08/16 21:45; Admin Dose 30 MG; Start 08/01/16 at 21:00 Daptomycin 470 mg/ Sodium Chloride 100 ml @ 200 mls/hr Q48H IVPB Last administered on 08/08/16 21:47; Admin Dose 200 MLS/HR; Start 08/02/16 at 22:00 Meropenem (Merrem 500 Mg/ 100 ml (Pmx)) 100 ml @ 200 mls/hr Q12 IVPB Last administered on 08/09/16 09:58; Admin Dose 200 MLS/HR; Start 08/08/16 at 17:00 ADITYA STANFORD MD Aug 09, 2016 11:57
--- NOTE | 2016-08-09 15:22 | CONS ---
Date/Time of Note Date/Time of Note DATE: 08/09/16 TIME: 15:21 Assessment/Plan Assessment/Plan Chief Complaint/Hosp Course - possible recurrent sepsis - sepsis due to wound infection and OM of b/l heel and C diff colitis - infection of wounds of b/l heel due to MRSA, enterococcus spp and corynebacter jeikeium (grp JK); MRI showed early osteomyelitis at b/l posterior calcaneal margin. - unstageable decub of b/l heel - C diff colitis - resolving - s/p possible HCAP, Pt completed empiric cefepime (07/10/2016-07/19/2016); CXR on 07/20/2016 showed improvement. 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 Improved after its discontinuation REVISED recommendations: - I recommend and ordered: blood cultures x2, remove the urinary catheter, obtain a fresh sample of urinalysis and urine culture, then insert a new catheter, CXR - add empiric meropenem while waiting for the result of above cultures - MRI from 08/01/2016 showed early osteomyelitis at b/l posterior calcaneal margin. I recommend total 6 weeks of IV antibiotic. - continue renally dosed IV daptomycin through 08/25/2016 (Pt received IV vancomycin, then linezolid before). CK=27 on 08/03/2016. Will repeat weekly - if Pt gets transferred to SNF, please order weekly CBC, BMP, CK while Pt's on IV antibiotics - continue PO vancomycin (07/15/2016-) and IV Flagyl (07/22/2016-) while Pt's on IV antibiotic Management d/w nursing and Dr. Henderson Problems: Consultation Date/Type/Reason Admit Date/Time July 09, 2016 at 12:24 Initial Consult Date 07/11/16 Type of Consultation: Infectious Disease Referring Provider: RONNIE PATEL MD Exam/Review of Systems Vital Signs Vitals Vital Signs Date Time Temp Pulse Resp B/P Pulse Ox O2 Delivery O2 Flow Rate FiO2 08/09/16 08:26 97.9 79 18 112/61 90 Intake and Output 08/08/16 08/08/16 08/09/16 15:00 23:00 07:00 Intake Total 200 ml 720 ml 400 ml Output Total 50 ml 500 ml Balance 200 ml 670 ml -100 ml Exam Constitutional: other (demented) Psych: confusion Head: atraumatic, normocephalic Eyes: nl conjunctiva, nl lids ENMT: nl external ears & nose, nl nasal mucosa & septum Neck: other (did not follow commands) Respiratory: clear to auscultation, normal air movement Cardiovascular: nl pulses, regular rate and rhythm, No systolic murmur Gastrointestinal: other (limited exam due to her conractured legs), soft Musculoskeletal: joint tenderness (R heel with drainage), other (contractured) Extremities: normal pulses, No edema Neurological: confused Skin: rash or lesions (R heel is purulent and malodorous) Results Result Diagram: 08/09/1652108/09/16 0522 Results 24 hrs Laboratory Tests Test 08/09/16 05:22 White Blood Count 31.8 H Red Blood Count 2.79 L Hemoglobin 8.2 L Hematocrit 25.0 L Mean Corpuscular Volume 89.6 Mean Corpuscular Hemoglobin 29.4 Mean Corpuscular Hemoglobin Concent 32.8 Red Cell Distribution Width 15.6 H Platelet Count 246 Mean Platelet Volume 10.1 Neutrophils % 77.4 H Lymphocytes % 7.9 L Monocytes % 6.7 Eosinophils % 3.5 Basophils % 0.2 Nucleated Red Blood Cells % 0.2 H Neutrophils # 24.6 H Lymphocytes # 2.5 Monocytes # 2.1 H Eosinophils # 1.1 H Basophils # 0.1 Nucleated Red Blood Cells # 0.1 H Sodium Level 145 H Potassium Level 3.1 L Chloride Level 120 H Carbon Dioxide Level 16 L Anion Gap 12 Blood Urea Nitrogen 38 H Creatinine 2.31 H Glucose Level 86 Calcium Level 7.0 L Medications Medications Current Medications Acetaminophen (Tylenol Tab) 500 mg Q6H PRN PO PAIN AND OR ELEVATED TEMP; Start 07/09/16 at 20:30 Ondansetron HCl (Zofran Inj) 4 mg Q6H PRN IV NAUSEA AND/OR VOMITING; Start at 20:30 Aspirin (Aspirin) 81 mg DAILY PO Last administered on 08/09/16 09:57; Admin Dose 81 MG; Start 07/10/16 at 09:00 Benztropine Mesylate (Cogentin) 1 mg BID PO Last administered on 08/09/16 09: 57; Admin Dose 1 MG; Start 07/09/16 at 21:00 Finasteride (Proscar) 5 mg DAILY PO Last administered on 08/09/16 09:57; Admin Dose 5 MG; Start 07/10/16 at 09:00 Acetaminophen/ Hydrocodone Bitart ([place] (5/325)) 1 tab Q4 PRN PO SEVERE PAIN LEVEL 7-10 Last administered on 07/15/16 16:21; Admin Dose 1 TAB; Start at 20:30 Latanoprost (Xalatan) 1 drop QHS BOTH EYES Last administered on 08/08/16 21:47 ; Admin Dose 1 DROP; Start 07/09/16 at 21:00 Multivitamins Therapeutic (Theragran) 1 tab DAILY PO Last administered on 09:57; Admin Dose 1 TAB; Start 07/10/16 at 09:00 Olanzapine (Zyprexa) 5 mg QHS PO Last administered on 08/08/16 21:46; Admin Dose 5 MG; Start 07/09/16 at 21:00 Zinc Sulfate (Zinc Sulfate) 220 mg DAILY PO Last administered on 08/09/16 09: 57; Admin Dose 220 MG; Start 07/10/16 at 09:00 Acetaminophen (Tylenol Supp) 650 mg Q6H PRN [place] ELEVATED TEMPERATURE Last administered on 07/10/16 09:51; Admin Dose 650 MG; Start 07/10/16 at 09:30 Collagenase (Santyl) 1 applic DAILY TOP Last administered on 08/09/16 10:00; Admin Dose 1 APPLIC; Start 07/10/16 at 14:00 Bisacodyl (Dulcolax) 10 mg BID PO Last administered on 08/09/16 09:57; Admin Dose 10 MG; Start 07/13/16 at 15:00 Benazepril HCl (Lotensin) 20 mg DAILY PO Last administered on 08/08/16 08:43; Admin Dose 20 MG; Start 07/16/16 at 09:00 Zolpidem Tartrate (Ambien) 2.5 mg HS PRN PO INSOMNIA; Start 07/17/16 at 19:00 Epoetin Zana (Epogen (Esrd)) 6,000 units TuThSa@17 SC Last administered on 08/07 17:42; Admin Dose 6,000 UNITS; Start 07/17/16 at 20:00 Miscellaneous Information (Pending Santyl Order For Wound Care) This patient ellis... PRN PRN XX WOUND CARE; Start 07/18/16 at 07:00 Lorazepam (Ativan) 0.5 mg Q6H PRN PO ANXEITY Last administered on 07/19/16 22: 28; Admin Dose 0.5 MG; Start 07/18/16 at 16:00 Clonidine (Catapres) 0.1 mg TID PO Last administered on 08/07/16 09:56; Admin Dose 0.1 MG; Start 07/19/16 at 09:00; Status Future Hold Vancomycin HCl 125 mg 125 mg Q6 PO Last administered on 08/09/16 13:06; Admin Dose 125 MG; Start 07/21/16 at 19:00 Metronidazole (Flagyl 500 Mg (Pmx)) 100 ml @ 100 mls/hr Q8 IVPB Last administered on 08/09/16 13:06; Admin Dose 100 MLS/HR; Start 07/22/16 at 16:30 Lactobacillus Acidophilus/ Rhamnosus (Culturelle) 1 cap BID PO Last administered on 08/09/16 09:57; Admin Dose 1 CAP; Start 07/23/16 at 21:00 Ascorbic Acid (Vitamin C) 500 mg DAILY PO Last administered on 08/09/16 10:00 ; Admin Dose 500 MG; Start 07/26/16 at 09:00 Metoprolol Tartrate (Lopressor) 25 mg BID PO Last administered on 08/09/16 09: 59; Admin Dose 25 MG; Start 07/28/16 at 21:00 Hydralazine HCl (Apresoline) 10 mg Q4H PRN [place] ELEVATED BLOOD PRESSURE Last administered on 07/29/16 14:50; Admin Dose 10 MG; Start 07/28/16 at 20:30 Nifedipine (Procardia Xl) 60 mg QAM PO Last administered on 08/08/16 08:44; Admin Dose 60 MG; Start 08/02/16 at 09:00 Nifedipine 30 mg 30 mg QHS PO Last administered on 08/08/16 21:45; Admin Dose 30 MG; Start 08/01/16 at 21:00 Daptomycin 470 mg/ Sodium Chloride 100 ml @ 200 mls/hr Q48H IVPB Last administered on 08/08/16 21:47; Admin Dose 200 MLS/HR; Start 08/02/16 at 22:00 Meropenem (Merrem 500 Mg/ 100 ml (Pmx)) 100 ml @ 200 mls/hr Q12 IVPB Last administered on 08/09/16 09:58; Admin Dose 200 MLS/HR; Start 08/08/16 at 17:00 WADE PINK NP Aug 09, 2016 15:22
--- NOTE | 2016-08-09 15:39 | CONS ---
Date/Time of Note Date/Time of Note DATE: 08/09/16 TIME: 15:29 Assessment/Plan Assessment/Plan Chief Complaint/Hosp Course - possible recurrent sepsis - sepsis due to wound infection and OM of b/l heel and C diff colitis - infection of wounds of b/l heel due to MRSA, enterococcus spp and corynebacter jeikeium (grp JK); MRI showed early osteomyelitis at b/l posterior calcaneal margin. - unstageable decub of b/l heel - C diff colitis - resolving - s/p possible HCAP, Pt completed empiric cefepime (07/10/2016-07/19/2016); CXR on 07/20/2016 showed improvement. 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 Improved after its discontinuation recommendations: - pending: blood cultures x2, urine culture - continue empiric meropenem while waiting for the result of above cultures - MRI from 08/01/2016 showed early osteomyelitis at b/l posterior calcaneal margin. We recommend total 6 weeks of IV antibiotic. - continue renally dosed IV daptomycin through 08/25/2016 (Pt received IV vancomycin, then linezolid before). CK=27 on 08/03/2016. Will repeat weekly - if Pt gets transferred to SNF, please order weekly CBC, BMP, CK while Pt's on IV antibiotics - continue PO vancomycin (07/15/2016-) and IV Flagyl (07/22/2016-) while Pt's on IV antibiotic Management d/w patient, pt's , RN Vanessa, and Dr. Henderson Problems: Consultation Date/Type/Reason Admit Date/Time July 09, 2016 at 12:24 Initial Consult Date 07/11/16 Type of Consultation: Infectious Disease Referring Provider: RONNIE PATEL MD 24 HR Interval Summary Free Text/Dictation Avila catheter replaced yesterday due to worsening leukocytosis. No diarrhea; had small formed BM yesterday. No acute issues per d/w nursing staff. Pt denies pain or diarrhea but is not a reliable historian due to dementia. Exam/Review of Systems Vital Signs Vitals Vital Signs Date Time Temp Pulse Resp B/P Pulse Ox O2 Delivery O2 Flow Rate FiO2 08/09/16 08:26 97.9 79 18 112/61 90 Intake and Output 08/08/16 08/08/16 08/09/16 15:00 23:00 07:00 Intake Total 200 ml 720 ml 400 ml Output Total 50 ml 500 ml Balance 200 ml 670 ml -100 ml Exam Constitutional: alert, well developed, other (demented) Psych: confusion Head: atraumatic, normocephalic Eyes: nl conjunctiva, nl lids ENMT: nl external ears & nose, nl nasal mucosa & septum Neck: supple Respiratory: clear to auscultation, normal air movement Cardiovascular: nl pulses, regular rate and rhythm, Gastrointestinal: soft, mildly distended, NT Genitourinary - Male: Avila catheter intact with dark mary urine Musculoskeletal: joint tenderness (R heel with dressing intact), other ( contractured) Extremities: normal pulses, No edema Neurological: confused Skin: rash or lesions (R heel wound - see nurse note and photo in chart for details) Results Result Diagram: 08/09/1622 08/09/16 0522 Results 24 hrs Laboratory Tests Test 08/09/16 05:22 White Blood Count 31.8 H Red Blood Count 2.79 L Hemoglobin 8.2 L Hematocrit 25.0 L Mean Corpuscular Volume 89.6 Mean Corpuscular Hemoglobin 29.4 Mean Corpuscular Hemoglobin Concent 32.8 Red Cell Distribution Width 15.6 H Platelet Count 246 Mean Platelet Volume 10.1 Neutrophils % 77.4 H Lymphocytes % 7.9 L Monocytes % 6.7 Eosinophils % 3.5 Basophils % 0.2 Nucleated Red Blood Cells % 0.2 H Neutrophils # 24.6 H Lymphocytes # 2.5 Monocytes # 2.1 H Eosinophils # 1.1 H Basophils # 0.1 Nucleated Red Blood Cells # 0.1 H Sodium Level 145 H Potassium Level 3.1 L Chloride Level 120 H Carbon Dioxide Level 16 L Anion Gap 12 Blood Urea Nitrogen 38 H Creatinine 2.31 H Glucose Level 86 Calcium Level 7.0 L Medications Medications Current Medications Acetaminophen (Tylenol Tab) 500 mg Q6H PRN PO PAIN AND OR ELEVATED TEMP; Start 07/09/16 at 20:30 Ondansetron HCl (Zofran Inj) 4 mg Q6H PRN IV NAUSEA AND/OR VOMITING; Start at 20:30 Aspirin (Aspirin) 81 mg DAILY PO Last administered on 08/09/16 09:57; Admin Dose 81 MG; Start 07/10/16 at 09:00 Benztropine Mesylate (Cogentin) 1 mg BID PO Last administered on 08/09/16 09: 57; Admin Dose 1 MG; Start 07/09/16 at 21:00 Finasteride (Proscar) 5 mg DAILY PO Last administered on 08/09/16 09:57; Admin Dose 5 MG; Start 07/10/16 at 09:00 Acetaminophen/ Hydrocodone Bitart ([place] (5/325)) 1 tab Q4 PRN PO SEVERE PAIN LEVEL 7-10 Last administered on 07/15/16 16:21; Admin Dose 1 TAB; Start at 20:30 Latanoprost (Xalatan) 1 drop QHS BOTH EYES Last administered on 08/08/16 21:47 ; Admin Dose 1 DROP; Start 07/09/16 at 21:00 Multivitamins Therapeutic (Theragran) 1 tab DAILY PO Last administered on 09:57; Admin Dose 1 TAB; Start 07/10/16 at 09:00 Olanzapine (Zyprexa) 5 mg QHS PO Last administered on 08/08/16 21:46; Admin Dose 5 MG; Start 07/09/16 at 21:00 Zinc Sulfate (Zinc Sulfate) 220 mg DAILY PO Last administered on 08/09/16 09: 57; Admin Dose 220 MG; Start 07/10/16 at 09:00 Acetaminophen (Tylenol Supp) 650 mg Q6H PRN [place] ELEVATED TEMPERATURE Last administered on 07/10/16 09:51; Admin Dose 650 MG; Start 07/10/16 at 09:30 Collagenase (Santyl) 1 applic DAILY TOP Last administered on 08/09/16 10:00; Admin Dose 1 APPLIC; Start 07/10/16 at 14:00 Bisacodyl (Dulcolax) 10 mg BID PO Last administered on 08/09/16 09:57; Admin Dose 10 MG; Start 07/13/16 at 15:00 Benazepril HCl (Lotensin) 20 mg DAILY PO Last administered on 08/08/16 08:43; Admin Dose 20 MG; Start 07/16/16 at 09:00 Zolpidem Tartrate (Ambien) 2.5 mg HS PRN PO INSOMNIA; Start 07/17/16 at 19:00 Epoetin Zana (Epogen (Esrd)) 6,000 units TuThSa@17 SC Last administered on 08/07 17:42; Admin Dose 6,000 UNITS; Start 07/17/16 at 20:00 Miscellaneous Information (Pending Santyl Order For Wound Care) This patient ellis... PRN PRN XX WOUND CARE; Start 07/18/16 at 07:00 Lorazepam (Ativan) 0.5 mg Q6H PRN PO ANXEITY Last administered on 07/19/16 22: 28; Admin Dose 0.5 MG; Start 07/18/16 at 16:00 Clonidine (Catapres) 0.1 mg TID PO Last administered on 08/07/16 09:56; Admin Dose 0.1 MG; Start 07/19/16 at 09:00; Status Future Hold Vancomycin HCl 125 mg 125 mg Q6 PO Last administered on 08/09/16 13:06; Admin Dose 125 MG; Start 07/21/16 at 19:00 Metronidazole (Flagyl 500 Mg (Pmx)) 100 ml @ 100 mls/hr Q8 IVPB Last administered on 08/09/16 13:06; Admin Dose 100 MLS/HR; Start 07/22/16 at 16:30 Lactobacillus Acidophilus/ Rhamnosus (Culturelle) 1 cap BID PO Last administered on 08/09/16 09:57; Admin Dose 1 CAP; Start 07/23/16 at 21:00 Ascorbic Acid (Vitamin C) 500 mg DAILY PO Last administered on 08/09/16 10:00 ; Admin Dose 500 MG; Start 07/26/16 at 09:00 Metoprolol Tartrate (Lopressor) 25 mg BID PO Last administered on 08/09/16 09: 59; Admin Dose 25 MG; Start 07/28/16 at 21:00 Hydralazine HCl (Apresoline) 10 mg Q4H PRN IV ELEVATED BLOOD PRESSURE Last administered on 07/29/16 14:50; Admin Dose 10 MG; Start 07/28/16 at 20:30 Nifedipine (Procardia Xl) 60 mg QAM PO Last administered on 08/08/16 08:44; Admin Dose 60 MG; Start 08/02/16 at 09:00 Nifedipine 30 mg 30 mg QHS PO Last administered on 08/08/16 21:45; Admin Dose 30 MG; Start 08/01/16 at 21:00 Daptomycin 470 mg/ Sodium Chloride 100 ml @ 200 mls/hr Q48H IVPB Last administered on 08/08/16 21:47; Admin Dose 200 MLS/HR; Start 08/02/16 at 22:00 Meropenem (Merrem 500 Mg/ 100 ml (Pmx)) 100 ml @ 200 mls/hr Q12 IVPB Last administered on 08/09/16 09:58; Admin Dose 200 MLS/HR; Start 08/08/16 at 17:00 Procedures Procedures CXR 08/08/2016: 1. Cardiomegaly with congestive heart failure and worsening interstitial pulmonary edema. Pneumonia with heart failure could present this fashion. 2. Bilateral pleural effusions which have increased in size since the earlier study. WADE PINK NP Aug 09, 2016 15:38
[2016-08-09] MEDS: EPOETIN 3000 UNITS/1 ML INJ (ESRD) SC SCH (18:36)
[2016-08-09 19:39] VITALS: BP 151/73; RESP 20
[2016-08-09] MEDS: OLANZAPINE 5 MG TAB PO SCH (20:23)
[2016-08-09] MEDS: LATANOPROST 0.005% 2.5 ML OPH BOTH EYES SCH (20:23)
--- NOTE | 2016-08-09 21:08 | CONS ---
Date/Time of Note Date/Time of Note DATE: 08/09/16 TIME: 21:07 Assessment/Plan Assessment/Plan Chief Complaint/Hosp Course Serial labs continue to show stable renal fn Hct has improved prob with blood Tx carried out on 07/28 Problems: Consultation Date/Type/Reason Admit Date/Time July 09, 2016 at 12:24 Initial Consult Date 07/11/16 Type of Consultation: renal Referring Provider: RONNIE PATEL MD Exam/Review of Systems Vital Signs Vitals Vital Signs Date Time Temp Pulse Resp B/P Pulse Ox O2 Delivery O2 Flow Rate FiO2 08/09/16 19:39 98.6 78 20 151/73 92 Intake and Output 08/08/16 08/08/16 08/09/16 15:00 23:00 07:00 Intake Total 200 ml 720 ml 400 ml Output Total 50 ml 500 ml Balance 200 ml 670 ml -100 ml Results Result Diagram: 08/09/16 0522 08/09/16 0522 Results 24 hrs Laboratory Tests Test 08/09/16 05:22 White Blood Count 31.8 H Red Blood Count 2.79 L Hemoglobin 8.2 L Hematocrit 25.0 L Mean Corpuscular Volume 89.6 Mean Corpuscular Hemoglobin 29.4 Mean Corpuscular Hemoglobin Concent 32.8 Red Cell Distribution Width 15.6 H Platelet Count 246 Mean Platelet Volume 10.1 Neutrophils % 77.4 H Lymphocytes % 7.9 L Monocytes % 6.7 Eosinophils % 3.5 Basophils % 0.2 Nucleated Red Blood Cells % 0.2 H Neutrophils # 24.6 H Lymphocytes # 2.5 Monocytes # 2.1 H Eosinophils # 1.1 H Basophils # 0.1 Nucleated Red Blood Cells # 0.1 H Sodium Level 145 H Potassium Level 3.1 L Chloride Level 120 H Carbon Dioxide Level 16 L Anion Gap 12 Blood Urea Nitrogen 38 H Creatinine 2.31 H Glucose Level 86 Calcium Level 7.0 L Medications Medications Current Medications Acetaminophen (Tylenol Tab) 500 mg Q6H PRN PO PAIN AND OR ELEVATED TEMP; Start 07/09/16 at 20:30 Ondansetron HCl (Zofran Inj) 4 mg Q6H PRN IV NAUSEA AND/OR VOMITING; Start at 20:30 Aspirin (Aspirin) 81 mg DAILY PO Last administered on 08/09/16t 09:57; Admin Dose 81 MG; Start 07/10/16 at 09:00 Benztropine Mesylate (Cogentin) 1 mg BID PO Last administered on 08/09/16 20: 23; Admin Dose 1 MG; Start 07/09/16 at 21:00 Finasteride (Proscar) 5 mg DAILY PO Last administered on 08/09/16 09:57; Admin Dose 5 MG; Start 07/10/16 at 09:00 Acetaminophen/ Hydrocodone Bitart ([place] (5/325)) 1 tab Q4 PRN PO SEVERE PAIN LEVEL 7-10 Last administered on 07/15/16 16:21; Admin Dose 1 TAB; Start at 20:30 Latanoprost (Xalatan) 1 drop QHS BOTH EYES Last administered on 08/09/16 20:23 ; Admin Dose 1 DROP; Start 07/09/16 at 21:00 Multivitamins Therapeutic (Theragran) 1 tab DAILY PO Last administered on 09:57; Admin Dose 1 TAB; Start 07/10/16 at 09:00 Olanzapine (Zyprexa) 5 mg QHS PO Last administered on 08/09/16 20:23; Admin Dose 5 MG; Start 07/09/16 at 21:00 Zinc Sulfate (Zinc Sulfate) 220 mg DAILY PO Last administered on 08/09/16 09: 57; Admin Dose 220 MG; Start 07/10/16 at 09:00 Acetaminophen (Tylenol Supp) 650 mg Q6H PRN [place] ELEVATED TEMPERATURE Last administered on 07/10/16 09:51; Admin Dose 650 MG; Start 07/10/16 at 09:30 Collagenase (Santyl) 1 applic DAILY TOP Last administered on 08/09/16 10:00; Admin Dose 1 APPLIC; Start 07/10/16 at 14:00 Bisacodyl (Dulcolax) 10 mg BID PO Last administered on 08/09/16 20:23; Admin Dose 10 MG; Start 07/13/16 at 15:00 Benazepril HCl (Lotensin) 20 mg DAILY PO Last administered on 08/08/16 08:43; Admin Dose 20 MG; Start 07/16/16 at 09:00 Zolpidem Tartrate (Ambien) 2.5 mg HS PRN PO INSOMNIA; Start 07/17/16 at 19:00 Epoetin Zana (Epogen (Esrd)) 6,000 units TuThSa@17 SC Last administered on 08/09 18:36; Admin Dose 6,000 UNITS; Start 07/17/16 at 20:00 Miscellaneous Information (Pending Santyl Order For Wound Care) This patient ellis... PRN PRN XX WOUND CARE; Start 07/18/16 at 07:00 Lorazepam (Ativan) 0.5 mg Q6H PRN PO ANXEITY Last administered on 07/19/16 22: 28; Admin Dose 0.5 MG; Start 07/18/16 at 16:00 Clonidine (Catapres) 0.1 mg TID PO Last administered on 08/07/16 09:56; Admin Dose 0.1 MG; Start 07/19/16 at 09:00; Status Future Hold Vancomycin HCl 125 mg 125 mg Q6 PO Last administered on 08/09/16 18:34; Admin Dose 125 MG; Start 07/21/16 at 19:00 Metronidazole (Flagyl 500 Mg (Pmx)) 100 ml @ 100 mls/hr Q8 IVPB Last administered on 08/09/16 13:06; Admin Dose 100 MLS/HR; Start 07/22/16 at 16:30 Lactobacillus Acidophilus/ Rhamnosus (Culturelle) 1 cap BID PO Last administered on 08/09/16 20:23; Admin Dose 1 CAP; Start 07/23/16 at 21:00 Ascorbic Acid (Vitamin C) 500 mg DAILY PO Last administered on 08/09/16 10:00 ; Admin Dose 500 MG; Start 07/26/16 at 09:00 Metoprolol Tartrate (Lopressor) 25 mg BID PO Last administered on 08/09/16 20: 24; Admin Dose 25 MG; Start 07/28/16 at 21:00 Hydralazine HCl (Apresoline) 10 mg Q4H PRN IV ELEVATED BLOOD PRESSURE Last administered on 07/29/16 14:50; Admin Dose 10 MG; Start 07/28/16 at 20:30 Nifedipine (Procardia Xl) 60 mg QAM PO Last administered on 08/08/16 08:44; Admin Dose 60 MG; Start 08/02/16 at 09:00 Nifedipine 30 mg 30 mg QHS PO Last administered on 08/09/16 20:24; Admin Dose 30 MG; Start 08/01/16 at 21:00 Daptomycin 470 mg/ Sodium Chloride 100 ml @ 200 mls/hr Q48H IVPB Last administered on 08/08/16 21:47; Admin Dose 200 MLS/HR; Start 08/02/16 at 22:00 Meropenem (Merrem 500 Mg/ 100 ml (Pmx)) 100 ml @ 200 mls/hr Q12 IVPB Last administered on 08/09/16 20:23; Admin Dose 200 MLS/HR; Start 08/08/16 at 17:00 JUANA AYALA MD Aug 09, 2016 21:07
[2016-08-10] MEDS: VANCOMYCIN HCL 250 MG/5ML POSYG PO SCH ×5 (00:26→23:21)
[2016-08-10] MEDS: metroNIDAZOLE 500 MG/NS (PMX) 100 ML IVPB SCH ×3 (05:34→23:18)
[2016-08-10 05:43] LABS: ADD SCAN DIFF NO
[2016-08-10 05:55] LABS: ABNORMAL IP MESSAGE 1; BASOPHILS % 0.1 % (0.0-2.0); EOSINOPHILS # 1.2 10^3/ul (0.0-0.5); EOSINOPHILS % 4.1 % (0.0-7.0); HEMATOCRIT 26.3 % (42.0-52.0); HEMOGLOBIN 8.5 g/dl (14.0-18.0); LYMPHOCYTES # 2.5 10^3/ul (0.8-2.9); LYMPHOCYTES % 8.9 % (15.0-51.0); MEAN CORPUSCULAR HEMOGLOBIN 28.9 pg (29.0-33.0); MEAN CORPUSCULAR HGB CONC 32.3 g/dl (32.0-37.0); MEAN CORPUSCULAR VOLUME 89.5 fl (82.0-101.0); MONOCYTE # 1.9 10^3/ul (0.3-0.9); MONOCYTES % 6.6 % (0.0-11.0); NEUTROPHIL # 21.8 10^3/ul (1.6-7.5); NEUTROPHILS % 76.5 % (39.0-77.0); NUCLEATED RED BLOOD CELLS% 0.1 /100WBC (0.0-0.0); PLATELET COUNT 318 10^3/UL (140-415); RED BLOOD COUNT 2.94 10^6/ul (4.70-6.10); RED CELL DISTRIBUTION WIDTH 17.4 % (11.5-14.5); WHITE BLOOD COUNT 28.5 10^3/ul (4.8-10.8)
[2016-08-10 07:33] LABS: ALBUMIN 2.1 g/dl (3.3-4.9); ALBUMIN/GLOBULIN RATIO 0.75; CALCIUM 7.1 mg/dl (8.4-10.2); CREATININE 2.25 mg/dl (0.61-1.24); TOTAL PROTEIN 4.9 g/dl (6.1-8.1)
[2016-08-10 07:45] LABS: POTASSIUM 2.9 mmol/L (3.5-5.1)
[2016-08-10 07:52] VITALS: BP 133/65; RESP 20
[2016-08-10] MEDS ORDERED: POTASSIUM CHLORIDE 20 MEQ POWDER FOR ORAL SOLN PO SCH (09:00)
[2016-08-10] MEDS: MEROPENEM 500 MG/100 ML (PMX) 100 ML IVPB SCH ×2 (09:36→21:09)
[2016-08-10] MEDS: CALCIUM CARBONATE 750 MG CHEW TAB PO SCH ×3 (09:40→18:09)
[2016-08-10] MEDS: ASPIRIN 81 MG TAB PO SCH (09:41)
[2016-08-10] MEDS: BENAZEPRIL 20 MG TAB PO SCH (09:41)
[2016-08-10] MEDS: BENZTROPINE 1 MG TAB PO SCH ×2 (09:41→21:09)
[2016-08-10] MEDS: BISACODYL (EC) 5 MG TAB PO SCH ×2 (09:41→21:09)
[2016-08-10] MEDS: PANTOPRAZOLE (EC) 40 MG TAB PO SCH (09:41)
[2016-08-10] MEDS: LACTOBACILLUS RHAMNOSUS CAP PO SCH ×2 (09:41→21:09)
[2016-08-10] MEDS: ZINC SULFATE 220 MG CAP PO SCH (09:41)
[2016-08-10] MEDS: MULTIVITAMINS THERAPEUTIC TAB PO SCH (09:42)
[2016-08-10] MEDS: NIFEdipine (XL) 30 MG TAB PO SCH ×2 (09:42→21:09)
[2016-08-10] MEDS: FINASTERIDE 5 MG TAB PO SCH (09:42)
[2016-08-10] MEDS: ASCORBIC ACID 500 MG TAB PO SCH (09:51)
[2016-08-10] MEDS: METOPROLOL 25 MG TAB PO SCH ×2 (09:51→21:10)
[2016-08-10] MEDS: COLLAGENASE 30 GM TUBE TOP SCH (09:52)
--- NOTE | 2016-08-10 11:09 | CONS ---
Date/Time of Note Date/Time of Note DATE: 08/10/16 TIME: 11:04 Assessment/Plan Assessment/Plan Chief Complaint/Hosp Course - possible recurrent sepsis - leukocytosis downward trending - sepsis due to wound infection and OM of b/l heel and C diff colitis - infection of wounds of b/l heel due to MRSA, enterococcus spp and corynebacter jeikeium (grp JK); MRI showed early osteomyelitis at b/l posterior calcaneal margin. - unstageable decub of b/l heel - C diff colitis - resolving - s/p possible HCAP, Pt completed empiric cefepime (07/10/2016-07/19/2016); CXR on 07/20/2016 showed improvement. 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 Improved after its discontinuation recommendations: - pending: blood cultures x2 (no growth after 1 day), urine culture (prelim < 10K pseudomonas) - continue empiric meropenem while waiting for the result of above cultures - MRI from 08/01/2016 showed early osteomyelitis at b/l posterior calcaneal margin. We recommend total 6 weeks of IV antibiotic. - continue renally dosed IV daptomycin through 08/25/2016 (Pt received IV vancomycin, then linezolid before). CK=27 on 08/03/2016. Will repeat weekly - if Pt gets transferred to SNF, please order weekly CBC, BMP, CK while Pt's on IV antibiotics - continue PO vancomycin (07/15/2016-) and IV Flagyl (07/22/2016-) while Pt's on IV antibiotic Management d/w DANIEL Mendez and Dr. Henderson Problems: Consultation Date/Type/Reason Admit Date/Time July 09, 2016 at 12:24 Initial Consult Date 07/11/16 Type of Consultation: Infectious Disease Referring Provider: RONNIE PATEL MD 24 HR Interval Summary Free Text/Dictation Pt with no complaints. Had formed BM; clinically unchanged per d/w nursing staff. Exam/Review of Systems Vital Signs Vitals Vital Signs Date Time Temp Pulse Resp B/P Pulse Ox O2 Delivery O2 Flow Rate FiO2 08/10/16 07:52 97.5 72 20 133/65 95 Intake and Output 08/09/16 08/09/16 08/10/16 15:00 23:00 07:00 Intake Total 200 ml 940 ml 350 ml Output Total 700 ml 800 ml Balance 200 ml 240 ml -450 ml Exam Constitutional: alert, well developed, other (demented) Psych: confusion Head: atraumatic, normocephalic Eyes: nl conjunctiva, nl lids ENMT: nl external ears & nose, nl nasal mucosa & septum Neck: supple Respiratory: clear to auscultation, normal air movement Cardiovascular: nl pulses, regular rate and rhythm, Gastrointestinal: soft, mildly distended, NT Genitourinary - Male: Avila catheter intact with dark mary urine Musculoskeletal: joint tenderness (R heel with dressing intact), other ( contractured) Extremities: normal pulses, edema Neurological: confused Skin: rash or lesions (R heel wound - see nurse note and photo in chart for details) Results Result Diagram: 08/10/16 0510 08/10/16 0510 Results 24 hrs Laboratory Tests Test 08/10/16 05:10 White Blood Count 28.5 H Red Blood Count 2.94 L Hemoglobin 8.5 L Hematocrit 26.3 L Mean Corpuscular Volume 89.5 Mean Corpuscular Hemoglobin 28.9 L Mean Corpuscular Hemoglobin Concent 32.3 Red Cell Distribution Width 17.4 H Platelet Count 318 # Mean Platelet Volume 10.0 Neutrophils % 76.5 Lymphocytes % 8.9 L Monocytes % 6.6 Eosinophils % 4.1 Basophils % 0.1 Nucleated Red Blood Cells % 0.1 H Neutrophils # 21.8 H Lymphocytes # 2.5 Monocytes # 1.9 H Eosinophils # 1.2 H Basophils # 0.0 Nucleated Red Blood Cells # 0.0 Sodium Level 143 Potassium Level 2.9 *L Chloride Level 119 H Carbon Dioxide Level 17 L Anion Gap 10 Blood Urea Nitrogen 35 H Creatinine 2.25 H Glucose Level 65 #L Calcium Level 7.1 L Total Bilirubin 0.0 L Direct Bilirubin 0.00 Indirect Bilirubin 0.0 Aspartate Amino Transf (AST/SGOT) 46 Alanine Aminotransferase (ALT/SGPT) 38 Alkaline Phosphatase 141 #H Creatine Kinase 36 Total Protein 4.9 L Albumin 2.1 L Globulin 2.80 Albumin/Globulin Ratio 0.75 Medications Medications Current Medications Acetaminophen (Tylenol Tab) 500 mg Q6H PRN PO PAIN AND OR ELEVATED TEMP; Start 07/09/16 at 20:30 Ondansetron HCl (Zofran Inj) 4 mg Q6H PRN IV NAUSEA AND/OR VOMITING; Start at 20:30 Aspirin (Aspirin) 81 mg DAILY PO Last administered on 08/10/16 09:41; Admin Dose 81 MG; Start 07/10/16 at 09:00 Benztropine Mesylate (Cogentin) 1 mg BID PO Last administered on 08/10/16 09: 41; Admin Dose 1 MG; Start 07/09/16 at 21:00 Finasteride (Proscar) 5 mg DAILY PO Last administered on 08/10/16 09:42; Admin Dose 5 MG; Start 07/10/16 at 09:00 Acetaminophen/ Hydrocodone Bitart ([place] (5/325)) 1 tab Q4 PRN PO SEVERE PAIN LEVEL 7-10 Last administered on 07/15/16 16:21; Admin Dose 1 TAB; Start at 20:30 Latanoprost (Xalatan) 1 drop QHS BOTH EYES Last administered on 08/09/16 20:23 ; Admin Dose 1 DROP; Start 07/09/16 at 21:00 Multivitamins Therapeutic (Theragran) 1 tab DAILY PO Last administered on 09:42; Admin Dose 1 TAB; Start 07/10/16 at 09:00 Olanzapine (Zyprexa) 5 mg QHS PO Last administered on 08/09/16 20:23; Admin Dose 5 MG; Start 07/09/16 at 21:00 Zinc Sulfate (Zinc Sulfate) 220 mg DAILY PO Last administered on 08/10/16 09: 41; Admin Dose 220 MG; Start 07/10/16 at 09:00 Acetaminophen (Tylenol Supp) 650 mg Q6H PRN [place] ELEVATED TEMPERATURE Last administered on 07/10/16 09:51; Admin Dose 650 MG; Start 07/10/16 at 09:30 Collagenase (Santyl) 1 applic DAILY TOP Last administered on 08/10/16 09:52; Admin Dose 1 APPLIC; Start 07/10/16 at 14:00 Bisacodyl (Dulcolax) 10 mg BID PO Last administered on 08/10/16 09:41; Admin Dose 10 MG; Start 07/13/16 at 15:00 Benazepril HCl (Lotensin) 20 mg DAILY PO Last administered on 08/10/16 09:41; Admin Dose 20 MG; Start 07/16/16 at 09:00 Zolpidem Tartrate (Ambien) 2.5 mg HS PRN PO INSOMNIA; Start 07/17/16 at 19:00 Epoetin Zana (Epogen (Esrd)) 6,000 units TuThSa@17 SC Last administered on 08/09 18:36; Admin Dose 6,000 UNITS; Start 07/17/16 at 20:00 Miscellaneous Information (Pending Santyl Order For Wound Care) This patient ellis... PRN PRN XX WOUND CARE; Start 07/18/16 at 07:00 Lorazepam (Ativan) 0.5 mg Q6H PRN PO ANXEITY Last administered on 07/19/16 22: 28; Admin Dose 0.5 MG; Start 07/18/16 at 16:00 Clonidine (Catapres) 0.1 mg TID PO Last administered on 08/07/16 09:56; Admin Dose 0.1 MG; Start 07/19/16 at 09:00; Status Future Hold Vancomycin HCl 125 mg 125 mg Q6 PO Last administered on 08/10/16 05:33; Admin Dose 125 MG; Start 07/21/16 at 19:00 Metronidazole (Flagyl 500 Mg (Pmx)) 100 ml @ 100 mls/hr Q8 IVPB Last administered on 08/10/16 05:34; Admin Dose 100 MLS/HR; Start 07/22/16 at 16:30 Lactobacillus Acidophilus/ Rhamnosus (Culturelle) 1 cap BID PO Last administered on 08/10/16 09:41; Admin Dose 1 CAP; Start 07/23/16 at 21:00 Ascorbic Acid (Vitamin C) 500 mg DAILY PO Last administered on 08/10/16 09:51 ; Admin Dose 500 MG; Start 07/26/16 at 09:00 Metoprolol Tartrate (Lopressor) 25 mg BID PO Last administered on 08/10/16 09: 51; Admin Dose 25 MG; Start 07/28/16 at 21:00 Hydralazine HCl (Apresoline) 10 mg Q4H PRN IV ELEVATED BLOOD PRESSURE Last administered on 07/29/16 14:50; Admin Dose 10 MG; Start 07/28/16 at 20:30 Nifedipine (Procardia Xl) 60 mg QAM PO Last administered on 08/10/16 09:42; Admin Dose 60 MG; Start 08/02/16 at 09:00 Nifedipine 30 mg 30 mg QHS PO Last administered on 08/09/16 20:24; Admin Dose 30 MG; Start 08/01/16 at 21:00 Daptomycin 470 mg/ Sodium Chloride 100 ml @ 200 mls/hr Q48H IVPB Last administered on 08/08/16 21:47; Admin Dose 200 MLS/HR; Start 08/02/16 at 22:00 Meropenem (Merrem 500 Mg/ 100 ml (Pmx)) 100 ml @ 200 mls/hr Q12 IVPB Last administered on 08/10/16 09:36; Admin Dose 200 MLS/HR; Start 08/08/16 at 17:00 Potassium Chloride (Potassium Chloride Pwd/Soln) 40 meq ONCE PO Last administered on 08/10/16 09:41; Admin Dose 40 MEQ; Start 08/10/16 at 09:00; Stop 08/10/16 at 12:00 WADE PINK NP Aug 10, 2016 11:09
--- NOTE | 2016-08-10 11:34 | PN ---
Date/Time of Note Date/Time of Note DATE: 08/10/16 TIME: 11:33 Assessment/Plan VTE Prophylaxis VTE Prophylaxis Intervention: other Lines/Catheters IV [facility] Type [facility]from [facility]ine [facility] Urinary Cath still in place: Yes Reason Cath still needed: skin wounds contaminated by urine Assessment/Plan Chief Complaint/Hosp Course - Recurrent sepsis with possible pneumonia, started on meropenem by ID. Dr. Langford is following an infection disease consultation. Follow up on cultures. - Hypokalemia, potassium replaced, continue to monitor. - Osteomyelitis of bilateral heels, continue daptomycin until August 25 per ID. - Bilateral heel wounds, patient is evaluated by Dr. Bell in podiatry consultation with recommendation of continue current wound care and not to proceed with debridement. - C. difficile colitis. Dr. Henderson is following an infection disease consultation. Continue oral vancomycin and intravenous metronidazole. - Colitis ulcers per colonoscopy, continue to follow-up gastroenterology recommendations. - Infected wounds on bilateral lower extremities. Continue antibiotics per ID. - Acute kidney injury on chronic kidney disease stage III with electrolyte imbalances. Dr. Srinivasan is following in nephrology consultation. - Acute metabolic encephalopathy, resolving. - Hypertension. Continue clonidine, Procardia and benazepril - Chronic obstructive pulmonary disease. Continue DuoNeb. - Benign prostatic hypertrophy. Continue Flomax. - Multiple decubitus ulcers present on admission. Continue local wound care, offloading. - Acute cerebrovascular accident. Continue aspirin. - Dyslipidemia. Continue Lipitor. - Dementia with behavioral disturbance. Continue Zyprexa. Problems: Subjective 24 Hr Interval Summary Free Text/Dictation Patient has no complaints Exam/Review of Systems Vital Signs Vitals Vital Signs Date Time Temp Pulse Resp B/P Pulse Ox O2 Delivery O2 Flow Rate FiO2 08/10/16 07:52 97.5 72 20 133/65 95 Intake and Output 08/09/16 08/09/16 08/10/16 15:00 23:00 07:00 Intake Total 200 ml 940 ml 350 ml Output Total 700 ml 800 ml Balance 200 ml 240 ml -450 ml Exam Constitutional: well developed Head: atraumatic, normocephalic Neck: supple Respiratory: diminished breath sounds Cardiovascular: regular rate and rhythm Gastrointestinal: non-tender, soft Extremities: normal pulses Results Result Diagram: 08/10/16 0510 08/10/16 0510 Results 24 hrs Laboratory Tests Test 08/10/16 05:10 White Blood Count 28.5 H Red Blood Count 2.94 L Hemoglobin 8.5 L Hematocrit 26.3 L Mean Corpuscular Volume 89.5 Mean Corpuscular Hemoglobin 28.9 L Mean Corpuscular Hemoglobin Concent 32.3 Red Cell Distribution Width 17.4 H Platelet Count 318 # Mean Platelet Volume 10.0 Neutrophils % 76.5 Lymphocytes % 8.9 L Monocytes % 6.6 Eosinophils % 4.1 Basophils % 0.1 Nucleated Red Blood Cells % 0.1 H Neutrophils # 21.8 H Lymphocytes # 2.5 Monocytes # 1.9 H Eosinophils # 1.2 H Basophils # 0.0 Nucleated Red Blood Cells # 0.0 Sodium Level 143 Potassium Level 2.9 *L Chloride Level 119 H Carbon Dioxide Level 17 L Anion Gap 10 Blood Urea Nitrogen 35 H Creatinine 2.25 H Glucose Level 65 #L Calcium Level 7.1 L Total Bilirubin 0.0 L Direct Bilirubin 0.00 Indirect Bilirubin 0.0 Aspartate Amino Transf (AST/SGOT) 46 Alanine Aminotransferase (ALT/SGPT) 38 Alkaline Phosphatase 141 #H Creatine Kinase 36 Total Protein 4.9 L Albumin 2.1 L Globulin 2.80 Albumin/Globulin Ratio 0.75 Medications Medications Current Medications Acetaminophen (Tylenol Tab) 500 mg Q6H PRN PO PAIN AND OR ELEVATED TEMP; Start 07/09/16 at 20:30 Ondansetron HCl (Zofran Inj) 4 mg Q6H PRN IV NAUSEA AND/OR VOMITING; Start at 20:30 Aspirin (Aspirin) 81 mg DAILY PO Last administered on 08/10/16 09:41; Admin Dose 81 MG; Start 07/10/16 at 09:00 Benztropine Mesylate (Cogentin) 1 mg BID PO Last administered on 08/10/16 09: 41; Admin Dose 1 MG; Start 07/09/16 at 21:00 Finasteride (Proscar) 5 mg DAILY PO Last administered on 08/10/16 09:42; Admin Dose 5 MG; Start 07/10/16 at 09:00 Acetaminophen/ Hydrocodone Bitart ([place] (5/325)) 1 tab Q4 PRN PO SEVERE PAIN LEVEL 7-10 Last administered on 07/15/16 16:21; Admin Dose 1 TAB; Start at 20:30 Latanoprost (Xalatan) 1 drop QHS BOTH EYES Last administered on 08/09/16 20:23 ; Admin Dose 1 DROP; Start 07/09/16 at 21:00 Multivitamins Therapeutic (Theragran) 1 tab DAILY PO Last administered on 09:42; Admin Dose 1 TAB; Start 07/10/16 at 09:00 Olanzapine (Zyprexa) 5 mg QHS PO Last administered on 08/09/16 20:23; Admin Dose 5 MG; Start 07/09/16 at 21:00 Zinc Sulfate (Zinc Sulfate) 220 mg DAILY PO Last administered on 08/10/16 09: 41; Admin Dose 220 MG; Start 07/10/16 at 09:00 Acetaminophen (Tylenol Supp) 650 mg Q6H PRN [place] ELEVATED TEMPERATURE Last administered on 07/10/16 09:51; Admin Dose 650 MG; Start 07/10/16 at 09:30 Collagenase (Santyl) 1 applic DAILY TOP Last administered on 08/10/16 09:52; Admin Dose 1 APPLIC; Start 07/10/16 at 14:00 Bisacodyl (Dulcolax) 10 mg BID PO Last administered on 08/10/16 09:41; Admin Dose 10 MG; Start 07/13/16 at 15:00 Benazepril HCl (Lotensin) 20 mg DAILY PO Last administered on 08/10/16 09:41; Admin Dose 20 MG; Start 07/16/16 at 09:00 Zolpidem Tartrate (Ambien) 2.5 mg HS PRN PO INSOMNIA; Start 07/17/16 at 19:00 Epoetin Zana (Epogen (Esrd)) 6,000 units TuThSa@17 SC Last administered on 08/09 18:36; Admin Dose 6,000 UNITS; Start 07/17/16 at 20:00 Miscellaneous Information (Pending Santyl Order For Wound Care) This patient ellis... PRN PRN XX WOUND CARE; Start 07/18/16 at 07:00 Lorazepam (Ativan) 0.5 mg Q6H PRN PO ANXEITY Last administered on 07/19/16 22: 28; Admin Dose 0.5 MG; Start 07/18/16 at 16:00 Clonidine (Catapres) 0.1 mg TID PO Last administered on 08/07/16 09:56; Admin Dose 0.1 MG; Start 07/19/16 at 09:00; Status Future Hold Vancomycin HCl 125 mg 125 mg Q6 PO Last administered on 08/10/16 05:33; Admin Dose 125 MG; Start 07/21/16 at 19:00 Metronidazole (Flagyl 500 Mg (Pmx)) 100 ml @ 100 mls/hr Q8 IVPB Last administered on 08/10/16 05:34; Admin Dose 100 MLS/HR; Start 07/22/16 at 16:30 Lactobacillus Acidophilus/ Rhamnosus (Culturelle) 1 cap BID PO Last administered on 08/10/16 09:41; Admin Dose 1 CAP; Start 07/23/16 at 21:00 Ascorbic Acid (Vitamin C) 500 mg DAILY PO Last administered on 08/10/16 09:51 ; Admin Dose 500 MG; Start 07/26/16 at 09:00 Metoprolol Tartrate (Lopressor) 25 mg BID PO Last administered on 08/10/16 09: 51; Admin Dose 25 MG; Start 07/28/16 at 21:00 Hydralazine HCl (Apresoline) 10 mg Q4H PRN IV ELEVATED BLOOD PRESSURE Last administered on 07/29/16 14:50; Admin Dose 10 MG; Start 07/28/16 at 20:30 Nifedipine (Procardia Xl) 60 mg QAM PO Last administered on 08/10/16 09:42; Admin Dose 60 MG; Start 08/02/16 at 09:00 Nifedipine 30 mg 30 mg QHS PO Last administered on 08/09/16 20:24; Admin Dose 30 MG; Start 08/01/16 at 21:00 Daptomycin 470 mg/ Sodium Chloride 100 ml @ 200 mls/hr Q48H IVPB Last administered on 08/08/16 21:47; Admin Dose 200 MLS/HR; Start 08/02/16 at 22:00 Meropenem (Merrem 500 Mg/ 100 ml (Pmx)) 100 ml @ 200 mls/hr Q12 IVPB Last administered on 08/10/16 09:36; Admin Dose 200 MLS/HR; Start 08/08/16 at 17:00 Potassium Chloride (Potassium Chloride Pwd/Soln) 40 meq ONCE PO Last administered on 08/10/16 09:41; Admin Dose 40 MEQ; Start 08/10/16 at 09:00; Stop 08/10/16 at 12:00 WINIFRED CHAVEZ Aug 10, 2016 11:34
--- NOTE | 2016-08-10 14:26 | CONS ---
Date/Time of Note Date/Time of Note DATE: 08/10/16 TIME: 14:24 Assessment/Plan Assessment/Plan Additional Assessment/Plan 1. Preoperative evaluation prior to debridement of heel decubitus ulcers.- negative trop x 3/NL EF by echo this admit with no sig contraindicated valve lesions. Ok to proceed to OR on BB continue pre-post op without further non- invasive eval at moderate risk - stable now 2. Hypertension-labile, con't Med rx - better Rx now 3. Abnormal electrocardiogram with anteroseptal Q's and normal ejection fraction by echo this admit - no intervention planned now 4. Clostridium difficile Colitis- rx now 5. Renal failure- stable, no CP noted now 6. Encephalopathy- improved 7. Chronic obstructive pulmonary disease- no wheezing by exam now 8. History of cerebrovascular accident- con't chronic care. 9. Dyslipidemia. 10. Dementia. 11. Anemia. 12. Leukocytosis- anti-Bx per ID team 12. Coagulopathy. Consultation Date/Type/Reason Admit Date/Time July 09, 2016 at 12:24 Initial Consult Date 07/26/16 Type of Consultation: Infectious Disease Referring Provider: RONNIE PATEL MD 24 HR Interval Summary Free Text/Dictation NO acute change - ID follows - stable fluid status ROS: No fever, no chills, no nausea, no vomiting, no diarrhea/constipation No recent weight changes No chest pain, no PND, no orthopnea No dizziness, blurred vision No thirst, no heat or cold intolerance Exam/Review of Systems Vital Signs Vitals Vital Signs Date Time Temp Pulse Resp B/P Pulse Ox O2 Delivery O2 Flow Rate FiO2 08/10/16 07:52 97.5 72 20 133/65 95 Intake and Output 08/09/16 08/09/16 08/10/16 15:00 23:00 07:00 Intake Total 200 ml 940 ml 350 ml Output Total 700 ml 800 ml Balance 200 ml 240 ml -450 ml Exam ROS: No fever, no chills, no nausea, no vomiting, no diarrhea/constipation No recent weight changes No chest pain, no PND, no orthopnea No dizziness, blurred vision No thirst, no heat or cold intolerance Results Result Diagram: 08/10/16 0510 08/10/16 0510 Results 24 hrs Laboratory Tests Test 08/10/16 05:10 White Blood Count 28.5 H Red Blood Count 2.94 L Hemoglobin 8.5 L Hematocrit 26.3 L Mean Corpuscular Volume 89.5 Mean Corpuscular Hemoglobin 28.9 L Mean Corpuscular Hemoglobin Concent 32.3 Red Cell Distribution Width 17.4 H Platelet Count 318 # Mean Platelet Volume 10.0 Neutrophils % 76.5 Lymphocytes % 8.9 L Monocytes % 6.6 Eosinophils % 4.1 Basophils % 0.1 Nucleated Red Blood Cells % 0.1 H Neutrophils # 21.8 H Lymphocytes # 2.5 Monocytes # 1.9 H Eosinophils # 1.2 H Basophils # 0.0 Nucleated Red Blood Cells # 0.0 Sodium Level 143 Potassium Level 2.9 *L Chloride Level 119 H Carbon Dioxide Level 17 L Anion Gap 10 Blood Urea Nitrogen 35 H Creatinine 2.25 H Glucose Level 65 #L Calcium Level 7.1 L Total Bilirubin 0.0 L Direct Bilirubin 0.00 Indirect Bilirubin 0.0 Aspartate Amino Transf (AST/SGOT) 46 Alanine Aminotransferase (ALT/SGPT) 38 Alkaline Phosphatase 141 #H Creatine Kinase 36 Total Protein 4.9 L Albumin 2.1 L Globulin 2.80 Albumin/Globulin Ratio 0.75 Medications Medications Current Medications Acetaminophen (Tylenol Tab) 500 mg Q6H PRN PO PAIN AND OR ELEVATED TEMP; Start 07/09/16 at 20:30 Ondansetron HCl (Zofran Inj) 4 mg Q6H PRN IV NAUSEA AND/OR VOMITING; Start at 20:30 Aspirin (Aspirin) 81 mg DAILY PO Last administered on 08/10/16 09:41; Admin Dose 81 MG; Start 07/10/16 at 09:00 Benztropine Mesylate (Cogentin) 1 mg BID PO Last administered on 08/10/16 09: 41; Admin Dose 1 MG; Start 07/09/16 at 21:00 Finasteride (Proscar) 5 mg DAILY PO Last administered on 08/10/16 09:42; Admin Dose 5 MG; Start 07/10/16 at 09:00 Acetaminophen/ Hydrocodone Bitart ([place] (5/325)) 1 tab Q4 PRN PO SEVERE PAIN LEVEL 7-10 Last administered on 07/15/16 16:21; Admin Dose 1 TAB; Start at 20:30 Latanoprost (Xalatan) 1 drop QHS BOTH EYES Last administered on 08/09/16 20:23 ; Admin Dose 1 DROP; Start 07/09/16 at 21:00 Multivitamins Therapeutic (Theragran) 1 tab DAILY PO Last administered on 09:42; Admin Dose 1 TAB; Start 07/10/16 at 09:00 Olanzapine (Zyprexa) 5 mg QHS PO Last administered on 08/09/16 20:23; Admin Dose 5 MG; Start 07/09/16 at 21:00 Zinc Sulfate (Zinc Sulfate) 220 mg DAILY PO Last administered on 08/10/16 09: 41; Admin Dose 220 MG; Start 07/10/16 at 09:00 Acetaminophen (Tylenol Supp) 650 mg Q6H PRN [place] ELEVATED TEMPERATURE Last administered on 07/10/16 09:51; Admin Dose 650 MG; Start 07/10/16 at 09:30 Collagenase (Santyl) 1 applic DAILY TOP Last administered on 08/10/16 09:52; Admin Dose 1 APPLIC; Start 07/10/16 at 14:00 Bisacodyl (Dulcolax) 10 mg BID PO Last administered on 08/10/16 09:41; Admin Dose 10 MG; Start 07/13/16 at 15:00 Benazepril HCl (Lotensin) 20 mg DAILY PO Last administered on 08/10/16 09:41; Admin Dose 20 MG; Start 07/16/16 at 09:00 Zolpidem Tartrate (Ambien) 2.5 mg HS PRN PO INSOMNIA; Start 07/17/16 at 19:00 Epoetin Zana (Epogen (Esrd)) 6,000 units TuThSa@17 SC Last administered on 08/09 18:36; Admin Dose 6,000 UNITS; Start 07/17/16 at 20:00 Miscellaneous Information (Pending Santyl Order For Wound Care) This patient ellis... PRN PRN XX WOUND CARE; Start 07/18/16 at 07:00 Lorazepam (Ativan) 0.5 mg Q6H PRN PO ANXEITY Last administered on 07/19/16 22: 28; Admin Dose 0.5 MG; Start 07/18/16 at 16:00 Clonidine (Catapres) 0.1 mg TID PO Last administered on 08/07/16 09:56; Admin Dose 0.1 MG; Start 07/19/16 at 09:00; Status Future Hold Vancomycin HCl 125 mg 125 mg Q6 PO Last administered on 08/10/16 12:54; Admin Dose 125 MG; Start 07/21/16 at 19:00 Metronidazole (Flagyl 500 Mg (Pmx)) 100 ml @ 100 mls/hr Q8 IVPB Last administered on 08/10/16 05:34; Admin Dose 100 MLS/HR; Start 07/22/16 at 16:30 Lactobacillus Acidophilus/ Rhamnosus (Culturelle) 1 cap BID PO Last administered on 08/10/16 09:41; Admin Dose 1 CAP; Start 07/23/16 at 21:00 Ascorbic Acid (Vitamin C) 500 mg DAILY PO Last administered on 08/10/16 09:51 ; Admin Dose 500 MG; Start 07/26/16 at 09:00 Metoprolol Tartrate (Lopressor) 25 mg BID PO Last administered on 08/10/16 09: 51; Admin Dose 25 MG; Start 07/28/16 at 21:00 Hydralazine HCl (Apresoline) 10 mg Q4H PRN IV ELEVATED BLOOD PRESSURE Last administered on 07/29/16 14:50; Admin Dose 10 MG; Start 07/28/16 at 20:30 Nifedipine (Procardia Xl) 60 mg QAM PO Last administered on 08/10/16 09:42; Admin Dose 60 MG; Start 08/02/16 at 09:00 Nifedipine 30 mg 30 mg QHS PO Last administered on 08/09/16 20:24; Admin Dose 30 MG; Start 08/01/16 at 21:00 Daptomycin 470 mg/ Sodium Chloride 100 ml @ 200 mls/hr Q48H IVPB Last administered on 08/08/16 21:47; Admin Dose 200 MLS/HR; Start 08/02/16 at 22:00 Meropenem (Merrem 500 Mg/ 100 ml (Pmx)) 100 ml @ 200 mls/hr Q12 IVPB Last administered on 08/10/16 09:36; Admin Dose 200 MLS/HR; Start 08/08/16 at 17:00 ADITYA STANFORD MD Aug 10, 2016 14:26
--- NOTE | 2016-08-10 17:35 | PN ---
DATE: 08/10/2016 SUBJECTIVE: No new complaints. OBJECTIVE: GENERAL: Patient is awake, alert and answers simple questions, does not have any complaints, does n ot complain of any pain. VITAL SIGNS: Temperature 97.5, heart rate 72, respirations 20, blood pressure 133/65, saturation 95 % on room air. LABORATORY DATA: WBC is trending down, today is 28,500 with normal differential, it was 34,000 a fe w days ago. Hemoglobin is 8.5, hematocrit 36.3. Chemistry: Sodium is normal. Potassium low at 2. 9. Medical service has been notified. BUN coming down to 85, creatinine gradually coming down, toda y is 2.25. Albumin is 2.1. Total protein is 4.9, very low. Urine amount is adequate. ABDOMEN: Soft. WOUNDS: Sacrococcygeal wound is healing very nicely. Bilateral heel pressure ulcers, still the ralph k eschar is present bilaterally, underneath there is evidence of necrotic tissues down to the bone a lmost and as you know bilateral heel early osteomyelitis is present. This was diagnosed on MRI. ASSESSMENT AND PLAN: It seems 5 days ago the patient started having high leukocyte count of 37,000. Antibiotics have been changed and added by infectious disease is being under control. The patient is improving. The urine function is improving. The sacrococcygeal wound is improving very nicely f or this bilateral heel pressure ulcer. We hope that gift wrapper has put more input, in any case, they need to remove the tissues and also do a partial calcanectomy. Dictated By: LISSETH RIVERS/MEAGAN Conf#: [id number] DID#: [id number]
[2016-08-10 20:01] VITALS: BP 117/65; RESP 18
[2016-08-10] MEDS: LATANOPROST 0.005% 2.5 ML OPH BOTH EYES SCH (21:10)
[2016-08-10] MEDS: OLANZAPINE 5 MG TAB PO SCH (21:10)
--- NOTE | 2016-08-10 21:36 | CONS ---
Date/Time of Note Date/Time of Note DATE: 08/10/16 TIME: 21:35 Assessment/Plan Assessment/Plan Chief Complaint/Hosp Course Pt continues to require K replacement prob due to tubular disese causin K losses Problems: Cont'd Hospitalization Reason: Will continue present Rx & close F/U, epo dose was increased Consultation Date/Type/Reason Admit Date/Time July 09, 2016 at 12:24 Initial Consult Date 07/11/16 Type of Consultation: renal Referring Provider: RONNIE PATEL MD 24 HR Interval Summary Free Text/Dictation Pt remains non verbal tho in ni distress Exam/Review of Systems Vital Signs Vitals Vital Signs Date Time Temp Pulse Resp B/P Pulse Ox O2 Delivery O2 Flow Rate FiO2 08/10/16 20:01 97.8 82 18 117/65 96 Intake and Output 08/09/16 08/09/16 08/10/16 15:00 23:00 07:00 Intake Total 200 ml 940 ml 350 ml Output Total 700 ml 800 ml Balance 200 ml 240 ml -450 ml Exam Constitutional: alert, oriented, well developed Psych: nl mood/affect, no complaints Head: atraumatic, normocephalic Eyes: EOMI, PERRL, nl conjunctiva, nl lids, nl sclera ENMT: nl external ears & nose, nl lips & teeth, nl nasal mucosa & septum Neck: non-tender, supple Respiratory: clear to auscultation, normal air movement Cardiovascular: nl pulses, regular rate and rhythm Gastrointestinal: nl liver, spleen, non-tender, soft Genitourinary - Male: other ([place] in place) Musculoskeletal: nl extremities to inspection, nl gait and stance Extremities: normal pulses Neurological: SLITTER SERVICE AND SETTER II-XII intact, nl mental status, nl speech, nl strength Skin: nl turgor, No rash or lesions Lymph: nl lymph nodes Results Hct stable, SK has dropped, tho BUN/Creat is improving Also note, mild hyperchloremic acidosis Result Diagram: 08/10/16 0510 08/10/16 0510 Results 24 hrs Laboratory Tests Test 08/10/16 05:10 White Blood Count 28.5 H Red Blood Count 2.94 L Hemoglobin 8.5 L Hematocrit 26.3 L Mean Corpuscular Volume 89.5 Mean Corpuscular Hemoglobin 28.9 L Mean Corpuscular Hemoglobin Concent 32.3 Red Cell Distribution Width 17.4 H Platelet Count 318 # Mean Platelet Volume 10.0 Neutrophils % 76.5 Lymphocytes % 8.9 L Monocytes % 6.6 Eosinophils % 4.1 Basophils % 0.1 Nucleated Red Blood Cells % 0.1 H Neutrophils # 21.8 H Lymphocytes # 2.5 Monocytes # 1.9 H Eosinophils # 1.2 H Basophils # 0.0 Nucleated Red Blood Cells # 0.0 Sodium Level 143 Potassium Level 2.9 *L Chloride Level 119 H Carbon Dioxide Level 17 L Anion Gap 10 Blood Urea Nitrogen 35 H Creatinine 2.25 H Glucose Level 65 #L Calcium Level 7.1 L Total Bilirubin 0.0 L Direct Bilirubin 0.00 Indirect Bilirubin 0.0 Aspartate Amino Transf (AST/SGOT) 46 Alanine Aminotransferase (ALT/SGPT) 38 Alkaline Phosphatase 141 #H Creatine Kinase 36 Total Protein 4.9 L Albumin 2.1 L Globulin 2.80 Albumin/Globulin Ratio 0.75 Medications Medications Current Medications Acetaminophen (Tylenol Tab) 500 mg Q6H PRN PO PAIN AND OR ELEVATED TEMP; Start 07/09/16 at 20:30 Ondansetron HCl (Zofran Inj) 4 mg Q6H PRN IV NAUSEA AND/OR VOMITING; Start at 20:30 Aspirin (Aspirin) 81 mg DAILY PO Last administered on 08/10/16 09:41; Admin Dose 81 MG; Start 07/10/16 at 09:00 Benztropine Mesylate (Cogentin) 1 mg BID PO Last administered on 08/10/16 21: 09; Admin Dose 1 MG; Start 07/09/16 at 21:00 Finasteride (Proscar) 5 mg DAILY PO Last administered on 08/10/16 09:42; Admin Dose 5 MG; Start 07/10/16 at 09:00 Acetaminophen/ Hydrocodone Bitart ([place] (5/325)) 1 tab Q4 PRN PO SEVERE PAIN LEVEL 7-10 Last administered on 07/15/16 16:21; Admin Dose 1 TAB; Start at 20:30 Latanoprost (Xalatan) 1 drop QHS BOTH EYES Last administered on 08/10/16 21:10 ; Admin Dose 1 DROP; Start 07/09/16 at 21:00 Multivitamins Therapeutic (Theragran) 1 tab DAILY PO Last administered on 09:42; Admin Dose 1 TAB; Start 07/10/16 at 09:00 Olanzapine (Zyprexa) 5 mg QHS PO Last administered on 08/10/16 21:10; Admin Dose 5 MG; Start 07/09/16 at 21:00 Zinc Sulfate (Zinc Sulfate) 220 mg DAILY PO Last administered on 08/10/16 09: 41; Admin Dose 220 MG; Start 07/10/16 at 09:00 Acetaminophen (Tylenol Supp) 650 mg Q6H PRN [place] ELEVATED TEMPERATURE Last administered on 07/10/16 09:51; Admin Dose 650 MG; Start 07/10/16 at 09:30 Collagenase (Santyl) 1 applic DAILY TOP Last administered on 08/10/16 09:52; Admin Dose 1 APPLIC; Start 07/10/16 at 14:00 Bisacodyl (Dulcolax) 10 mg BID PO Last administered on 08/10/16 21:09; Admin Dose 10 MG; Start 07/13/16 at 15:00 Benazepril HCl (Lotensin) 20 mg DAILY PO Last administered on 08/10/16 09:41; Admin Dose 20 MG; Start 07/16/16 at 09:00 Zolpidem Tartrate (Ambien) 2.5 mg HS PRN PO INSOMNIA; Start 07/17/16 at 19:00 Epoetin Zana (Epogen (Esrd)) 6,000 units TuThSa@17 SC Last administered on 08/09 18:36; Admin Dose 6,000 UNITS; Start 07/17/16 at 20:00 Miscellaneous Information (Pending Santyl Order For Wound Care) This patient ellis... PRN PRN XX WOUND CARE; Start 07/18/16 at 07:00 Lorazepam (Ativan) 0.5 mg Q6H PRN PO ANXEITY Last administered on 07/19/16 22: 28; Admin Dose 0.5 MG; Start 07/18/16 at 16:00 Clonidine (Catapres) 0.1 mg TID PO Last administered on 08/07/16 09:56; Admin Dose 0.1 MG; Start 07/19/16 at 09:00; Status Future Hold Vancomycin HCl 125 mg 125 mg Q6 PO Last administered on 08/10/16 18:09; Admin Dose 125 MG; Start 07/21/16 at 19:00 Metronidazole (Flagyl 500 Mg (Pmx)) 100 ml @ 100 mls/hr Q8 IVPB Last administered on 08/10/16 16:06; Admin Dose 100 MLS/HR; Start 07/22/16 at 16:30 Lactobacillus Acidophilus/ Rhamnosus (Culturelle) 1 cap BID PO Last administered on 08/10/16 21:09; Admin Dose 1 CAP; Start 07/23/16 at 21:00 Ascorbic Acid (Vitamin C) 500 mg DAILY PO Last administered on 08/10/16 09:51 ; Admin Dose 500 MG; Start 07/26/16 at 09:00 Metoprolol Tartrate (Lopressor) 25 mg BID PO Last administered on 08/10/16 21: 10; Admin Dose 25 MG; Start 07/28/16 at 21:00 Hydralazine HCl (Apresoline) 10 mg Q4H PRN IV ELEVATED BLOOD PRESSURE Last administered on 07/29/16 14:50; Admin Dose 10 MG; Start 07/28/16 at 20:30 Nifedipine (Procardia Xl) 60 mg QAM PO Last administered on 08/10/16 09:42; Admin Dose 60 MG; Start 08/02/16 at 09:00 Nifedipine 30 mg 30 mg QHS PO Last administered on 08/10/16 21:09; Admin Dose 30 MG; Start 08/01/16 at 21:00 Daptomycin 470 mg/ Sodium Chloride 100 ml @ 200 mls/hr Q48H IVPB Last administered on 08/08/16 21:47; Admin Dose 200 MLS/HR; Start 08/02/16 at 22:00 Meropenem (Merrem 500 Mg/ 100 ml (Pmx)) 100 ml @ 200 mls/hr Q12 IVPB Last administered on 08/10/16 21:09; Admin Dose 200 MLS/HR; Start 08/08/16 at 17:00 JUANA AYALA MD Aug 10, 2016 21:36
[2016-08-10] MEDS: DAPTOMYCIN 470 MG in SOD CHLORIDE 0.9% 100 ML IVPB SCH (22:16)
[2016-08-11] MEDS: VANCOMYCIN HCL 250 MG/5ML POSYG PO SCH ×4 (05:49→23:47)
[2016-08-11] MEDS: metroNIDAZOLE 500 MG/NS (PMX) 100 ML IVPB SCH ×3 (05:49→21:00)
[2016-08-11 05:58] LABS: ADD SCAN DIFF NO
[2016-08-11 06:07] LABS: ABNORMAL IP MESSAGE 1; BASOPHILS % 0.1 % (0.0-2.0); EOSINOPHILS % 4.5 % (0.0-7.0); HEMATOCRIT 25.4 % (42.0-52.0); HEMOGLOBIN 8.3 g/dl (14.0-18.0); LYMPHOCYTES # 2.3 10^3/ul (0.8-2.9); LYMPHOCYTES % 10.4 % (15.0-51.0); MEAN CORPUSCULAR HEMOGLOBIN 28.9 pg (29.0-33.0); MEAN CORPUSCULAR HGB CONC 32.7 g/dl (32.0-37.0); MEAN CORPUSCULAR VOLUME 88.5 fl (82.0-101.0); MEAN PLATELET VOLUME 9.8 fl (7.4-10.4); MONOCYTE # 1.6 10^3/ul (0.3-0.9); MONOCYTES % 7.2 % (0.0-11.0); NEUTROPHIL # 16.6 10^3/ul (1.6-7.5); NEUTROPHILS % 75.5 % (39.0-77.0); PLATELET COUNT 386 10^3/UL (140-415); RED BLOOD COUNT 2.87 10^6/ul (4.70-6.10); RED CELL DISTRIBUTION WIDTH 18.1 % (11.5-14.5)
--- NOTE | 2016-08-11 07:42 | CONS ---
Date/Time of Note Date/Time of Note DATE: 08/11/16 TIME: 07:40 Assessment/Plan Assessment/Plan Additional Assessment/Plan 1. Preoperative evaluation prior to debridement of heel decubitus ulcers.- negative trop x 3/NL EF by echo this admit with no sig contraindicated valve lesions. Ok to proceed to OR on BB continue pre-post op without further non- invasive eval at moderate risk - stable now 2. Hypertension-labile, con't Med rx - better Rx now - IN good range now 3. Abnormal electrocardiogram with anteroseptal Q's and normal ejection fraction by echo this admit - no intervention planned now 4. Clostridium difficile Colitis- rx now 5. Renal failure- stable, no CP noted now 6. Encephalopathy- improved - more alert 7. Chronic obstructive pulmonary disease- no wheezing by exam now 8. History of cerebrovascular accident- con't chronic care. 9. Dyslipidemia. 10. Dementia. 11. Anemia. 12. Leukocytosis- anti-Bx per ID team 12. Coagulopathy- H/H trending down, PMD aware Consultation Date/Type/Reason Admit Date/Time July 09, 2016 at 12:24 Initial Consult Date 07/26/16 Type of Consultation: renal Referring Provider: RONNIE PATEL MD 24 HR Interval Summary Free Text/Dictation NO acute events - BP in good range - no CP now ROS: No fever, no chills, no nausea, no vomiting, no diarrhea/constipation No recent weight changes No chest pain, no PND, no orthopnea No dizziness, blurred vision No thirst, no heat or cold intolerance Exam/Review of Systems Vital Signs Vitals Vital Signs Date Time Temp Pulse Resp B/P Pulse Ox O2 Delivery O2 Flow Rate FiO2 08/10/16 20:01 97.8 82 18 117/65 96 Intake and Output 08/10/16 08/10/16 08/11/16 15:00 23:00 07:00 Intake Total 100 ml 980 ml 700 ml Output Total 850 ml 820 ml Balance 100 ml 130 ml -120 ml Exam General: WN/WD/NAD, AOx 1-2 HEENT: Unicetric/atraumatic/EOMI (follow commands) NECK: JVD elevated, no thyromegaly Lymph: no lymphadenopathy HEART: regular with no S3, II/ systolic murmur at apex LUNGS: Coarse sounds ABD: soft, NT, ND, +BS : Intact Neuro: non focal SKIN: chronic changes EXT: trace edema Results Result Diagram: 08/11/16 0455 08/10/16 0510 Results 24 hrs Laboratory Tests Test 08/11/16 04:55 White Blood Count 22.0 #H Red Blood Count 2.87 L Hemoglobin 8.3 L Hematocrit 25.4 L Mean Corpuscular Volume 88.5 Mean Corpuscular Hemoglobin 28.9 L Mean Corpuscular Hemoglobin Concent 32.7 Red Cell Distribution Width 18.1 H Platelet Count 386 # Mean Platelet Volume 9.8 Neutrophils % 75.5 Lymphocytes % 10.4 L Monocytes % 7.2 Eosinophils % 4.5 Basophils % 0.1 Nucleated Red Blood Cells % 0.0 Neutrophils # 16.6 H Lymphocytes # 2.3 Monocytes # 1.6 H Eosinophils # 1.0 H Basophils # 0.0 Nucleated Red Blood Cells # 0.0 Medications Medications Current Medications Acetaminophen (Tylenol Tab) 500 mg Q6H PRN PO PAIN AND OR ELEVATED TEMP; Start 07/09/16 at 20:30 Ondansetron HCl (Zofran Inj) 4 mg Q6H PRN IV NAUSEA AND/OR VOMITING; Start at 20:30 Aspirin (Aspirin) 81 mg DAILY PO Last administered on 08/10/16 09:41; Admin Dose 81 MG; Start 07/10/16 at 09:00 Benztropine Mesylate (Cogentin) 1 mg BID PO Last administered on 08/10/16 21: 09; Admin Dose 1 MG; Start 07/09/16 at 21:00 Finasteride (Proscar) 5 mg DAILY PO Last administered on 08/10/16 09:42; Admin Dose 5 MG; Start 07/10/16 at 09:00 Acetaminophen/ Hydrocodone Bitart ([place] (5/325)) 1 tab Q4 PRN PO SEVERE PAIN LEVEL 7-10 Last administered on 07/15/16 16:21; Admin Dose 1 TAB; Start at 20:30 Latanoprost (Xalatan) 1 drop QHS BOTH EYES Last administered on 08/10/16 21:10 ; Admin Dose 1 DROP; Start 07/09/16 at 21:00 Multivitamins Therapeutic (Theragran) 1 tab DAILY PO Last administered on 09:42; Admin Dose 1 TAB; Start 07/10/16 at 09:00 Olanzapine (Zyprexa) 5 mg QHS PO Last administered on 08/10/16 21:10; Admin Dose 5 MG; Start 07/09/16 at 21:00 Zinc Sulfate (Zinc Sulfate) 220 mg DAILY PO Last administered on 08/10/16 09: 41; Admin Dose 220 MG; Start 07/10/16 at 09:00 Acetaminophen (Tylenol Supp) 650 mg Q6H PRN [place] ELEVATED TEMPERATURE Last administered on 07/10/16 09:51; Admin Dose 650 MG; Start 07/10/16 at 09:30 Collagenase (Santyl) 1 applic DAILY TOP Last administered on 08/10/16 09:52; Admin Dose 1 APPLIC; Start 07/10/16 at 14:00 Bisacodyl (Dulcolax) 10 mg BID PO Last administered on 08/10/16 21:09; Admin Dose 10 MG; Start 07/13/16 at 15:00 Benazepril HCl (Lotensin) 20 mg DAILY PO Last administered on 08/10/16 09:41; Admin Dose 20 MG; Start 07/16/16 at 09:00 Zolpidem Tartrate (Ambien) 2.5 mg HS PRN PO INSOMNIA; Start 07/17/16 at 19:00 Epoetin Zana (Epogen (Esrd)) 6,000 units TuThSa@17 SC Last administered on 08/09 18:36; Admin Dose 6,000 UNITS; Start 07/17/16 at 20:00 Miscellaneous Information (Pending Santyl Order For Wound Care) This patient ellis... PRN PRN XX WOUND CARE; Start 07/18/16 at 07:00 Lorazepam (Ativan) 0.5 mg Q6H PRN PO ANXEITY Last administered on 07/19/16 22: 28; Admin Dose 0.5 MG; Start 07/18/16 at 16:00 Clonidine (Catapres) 0.1 mg TID PO Last administered on 08/07/16 09:56; Admin Dose 0.1 MG; Start 07/19/16 at 09:00; Status Future Hold Vancomycin HCl 125 mg 125 mg Q6 PO Last administered on 08/11/16 05:49; Admin Dose 125 MG; Start 07/21/16 at 19:00 Metronidazole (Flagyl 500 Mg (Pmx)) 100 ml @ 100 mls/hr Q8 IVPB Last administered on 08/11/16 05:49; Admin Dose 100 MLS/HR; Start 07/22/16 at 16:30 Lactobacillus Acidophilus/ Rhamnosus (Culturelle) 1 cap BID PO Last administered on 08/10/16 21:09; Admin Dose 1 CAP; Start 07/23/16 at 21:00 Ascorbic Acid (Vitamin C) 500 mg DAILY PO Last administered on 08/10/16 09:51 ; Admin Dose 500 MG; Start 07/26/16 at 09:00 Metoprolol Tartrate (Lopressor) 25 mg BID PO Last administered on 08/10/16 21: 10; Admin Dose 25 MG; Start 07/28/16 at 21:00 Hydralazine HCl (Apresoline) 10 mg Q4H PRN IV ELEVATED BLOOD PRESSURE Last administered on 07/29/16 14:50; Admin Dose 10 MG; Start 07/28/16 at 20:30 Nifedipine (Procardia Xl) 60 mg QAM PO Last administered on 08/10/16 09:42; Admin Dose 60 MG; Start 08/02/16 at 09:00 Nifedipine 30 mg 30 mg QHS PO Last administered on 08/10/16 21:09; Admin Dose 30 MG; Start 08/01/16 at 21:00 Daptomycin 470 mg/ Sodium Chloride 100 ml @ 200 mls/hr Q48H IVPB Last administered on 08/10/16 22:16; Admin Dose 200 MLS/HR; Start 08/02/16 at 22:00 Meropenem (Merrem 500 Mg/ 100 ml (Pmx)) 100 ml @ 200 mls/hr Q12 IVPB Last administered on 08/10/16 21:09; Admin Dose 200 MLS/HR; Start 08/08/16 at 17:00 ADITYA STANFORD MD Aug 11, 2016 07:42
[2016-08-11 07:52] VITALS: BP 126/73; RESP 18
--- NOTE | 2016-08-11 08:02 | PN ---
DATE: 08/09/2016 SUBJECTIVE: Following this patient mainly for the sacrococcygeal pressure ulcer and also to some extent for the bilateral heel pressure ulcers. OBJECTIVE: GENERAL: Patient is alert, awake, eyes are open, lying down in the bed comfortably and answers simple questions precisely, and does not does not appear to be in acute distress. VITAL SIGNS: Temperature 97.9, heart rate 79, respirations 18, blood pressure 112/61, saturation ____% on room air. LABORATORY DATA: WBC has dropped down to 31,800 with 77% segmented, still a slight shift to the left, hemoglobin 8.2, hematocrit 25. Chemistry: Sodium 145 , potassium 3.1, BUN 38, creatinine up to 2.31. Calcium 7. Urinalysis repeated yesterday after removing the old Avila catheter and inserting a new catheter. It is reported as cloudy and also there is leukocyte esterase of 1+. RBC is more than 182 per high power field, WBC is 34 per high power field. Urine hemoglobin is 3+. Urine glucose is negative. Urine total protein was 2+5 and overall abnormal urinalysis. Bacteria has not been report . Urine culture has been sent, waiting for the result. Chest x-ray which was done yesterday has been read as follows, cardiomegaly with congestive heart failure and worsening interstitial pulmonary edema. Pneumonia with heart failure could present in this fashion. pleural effusion has increased in size since the earlier study. Wounds: Sacrococcygeal wound is healing, this is stage I, some part of it is stage II. Treatment applied, Santyl Adaptic and covered with a sponge and foam dressing. Bilateral heels also need to be sent in. Adaptic wrapped around with Kerlix and placed in feet protectors. ASSESSMENT: The patient has developed high leukocytosis of 30,000, which is being followed and managed by the infectious disease group. Overall, the patient looks fairly comfortable and does not appear in acute distress. PLAN: From surgical point of view, continue local care to pressure ulcers,plus 6 weeks antibiotics for early calcaneal osteomyelitis_. Dictated By: LISSETH THORPE MD PS/NTS Conf#: [id number] DID#: [id number] [facility]
--- NOTE | 2016-08-11 08:25 | PN ---
DATE: 08/07/2016 SUBJECTIVE: The pt was seen on 08/07/16 at 830 AM. This is a 71-year-old gentleman who remains confused and is lying comfortably in bed. He has acute renal failure from which he continues to show some improvement. His BUN and creatinine appear to have stabilized and are presently in the range of 41 and 2.62, respectively. Potassium has dropped somewhat. He continues to make good urine. His 24-hour creatinine clearance was about 20. His calcium is somewhat low. He is on calcium supplement along with Epogen for anemia. His hematocrit is presently 26%, although white count remains elevated to 37,000. He is also being followed by ID, and no definite etiology of the significant leukocytosis has been determined except for possibly a foot ulcer for which he has had an MRI which shows calcaneus cellulitis. Surgical consultation has been requested for that, and I will leave the rest of the plans and the management to the respective specialists. Renal tierney, the patient is stable and will continue present medical regimen from the renal standpoint. Dictated By: JUANA ADAMS/MEAGAN Conf#: [id number] DID#: [id number] RAY
[2016-08-11] MEDS: NIFEdipine (XL) 30 MG TAB PO SCH ×2 (08:35→20:58)
[2016-08-11] MEDS: ZINC SULFATE 220 MG CAP PO SCH (08:35)
[2016-08-11] MEDS: MEROPENEM 500 MG/100 ML (PMX) 100 ML IVPB SCH (08:35)
[2016-08-11] MEDS: BISACODYL (EC) 5 MG TAB PO SCH ×2 (08:36→20:57)
[2016-08-11] MEDS: METOPROLOL 25 MG TAB PO SCH ×2 (08:36→20:58)
[2016-08-11] MEDS: PANTOPRAZOLE (EC) 40 MG TAB PO SCH (08:36)
[2016-08-11] MEDS: LACTOBACILLUS RHAMNOSUS CAP PO SCH ×2 (08:36→20:57)
[2016-08-11] MEDS: MULTIVITAMINS THERAPEUTIC TAB PO SCH (08:36)
[2016-08-11] MEDS: CALCIUM CARBONATE 750 MG CHEW TAB PO SCH ×3 (08:36→17:28)
[2016-08-11] MEDS: ASPIRIN 81 MG TAB PO SCH (08:36)
[2016-08-11] MEDS: BENAZEPRIL 20 MG TAB PO SCH (08:36)
[2016-08-11] MEDS: ASCORBIC ACID 500 MG TAB PO SCH (08:36)
[2016-08-11] MEDS: FINASTERIDE 5 MG TAB PO SCH (08:36)
[2016-08-11] MEDS: COLLAGENASE 30 GM TUBE TOP SCH (08:37)
[2016-08-11] MEDS: BENZTROPINE 1 MG TAB PO SCH ×2 (08:38→20:57)
--- NOTE | 2016-08-11 11:50 | CONS ---
Date/Time of Note Date/Time of Note DATE: 08/11/16 TIME: 11:46 Assessment/Plan Assessment/Plan Chief Complaint/Hosp Course - possible recurrent sepsis due to UTI - UTI due to pseudomonas - sepsis due to wound infection and OM of b/l heel and C diff colitis - infection of wounds of b/l heel due to MRSA, enterococcus spp and corynebacter jeikeium (grp JK); MRI showed early osteomyelitis at b/l posterior calcaneal margin. - unstageable decub of b/l heel - C diff colitis - resolving - s/p possible HCAP, Pt completed empiric cefepime (07/10/2016-07/19/2016); CXR on 07/20/2016 showed improvement. 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 Improved after its discontinuation recommendations: - change empiric meropenem (08/08/2016-) to renally dosed ceftazidime (08/11/2016- ) - MRI from 08/01/2016 showed early osteomyelitis at b/l posterior calcaneal margin. We recommend total 6 weeks of IV antibiotic. - continue renally dosed IV daptomycin through 08/25/2016 (Pt received IV vancomycin, then linezolid before). CK=27 on 08/03/2016. Will repeat weekly - if Pt gets transferred to SNF, please order weekly CBC, BMP, CK while Pt's on IV antibiotics - continue PO vancomycin (07/15/2016-) and IV Flagyl (07/22/2016-) while Pt's on IV antibiotic Problems: Consultation Date/Type/Reason Admit Date/Time July 09, 2016 at 12:24 Initial Consult Date 07/11/16 Type of Consultation: ID Referring Provider: RONNIE PATEL MD 24 HR Interval Summary Subjective hx not possible: pt non-verbal, other (demented) Exam/Review of Systems Vital Signs Vitals Vital Signs Date Time Temp Pulse Resp B/P Pulse Ox O2 Delivery O2 Flow Rate FiO2 08/11/16 07:52 97.5 79 18 126/73 94 Intake and Output 08/10/16 08/10/16 08/11/16 15:00 23:00 07:00 Intake Total 100 ml 980 ml 700 ml Output Total 850 ml 820 ml Balance 100 ml 130 ml -120 ml Exam Constitutional: frail, non-verbal Psych: confusion Head: atraumatic, normocephalic Eyes: nl conjunctiva, nl lids ENMT: nl external ears & nose, nl nasal mucosa & septum, other (no thrush) Respiratory: diminished breath sounds Cardiovascular: nl pulses, regular rate and rhythm Genitourinary - Male: other (FC) Musculoskeletal: No joint tenderness (heel today Pt did not c/o tenderness) Extremities: No edema Neurological: confused Results Result Diagram: 08/11/16 0455 08/10/16 0510 Results 24 hrs Laboratory Tests Test 08/11/16 04:55 White Blood Count 22.0 #H Red Blood Count 2.87 L Hemoglobin 8.3 L Hematocrit 25.4 L Mean Corpuscular Volume 88.5 Mean Corpuscular Hemoglobin 28.9 L Mean Corpuscular Hemoglobin Concent 32.7 Red Cell Distribution Width 18.1 H Platelet Count 386 # Mean Platelet Volume 9.8 Neutrophils % 75.5 Lymphocytes % 10.4 L Monocytes % 7.2 Eosinophils % 4.5 Basophils % 0.1 Nucleated Red Blood Cells % 0.0 Neutrophils # 16.6 H Lymphocytes # 2.3 Monocytes # 1.6 H Eosinophils # 1.0 H Basophils # 0.0 Nucleated Red Blood Cells # 0.0 Differential Comment AUTO w/SCAN Medications Medications Current Medications Acetaminophen (Tylenol Tab) 500 mg Q6H PRN PO PAIN AND OR ELEVATED TEMP; Start 07/09/16 at 20:30 Ondansetron HCl (Zofran Inj) 4 mg Q6H PRN IV NAUSEA AND/OR VOMITING; Start at 20:30 Aspirin (Aspirin) 81 mg DAILY PO Last administered on 08/11/16t 08:36; Admin Dose 81 MG; Start 07/10/16 at 09:00 Benztropine Mesylate (Cogentin) 1 mg BID PO Last administered on 08/11/16 08: 38; Admin Dose 1 MG; Start 07/09/16 at 21:00 Finasteride (Proscar) 5 mg DAILY PO Last administered on 08/11/16 08:36; Admin Dose 5 MG; Start 07/10/16 at 09:00 Acetaminophen/ Hydrocodone Bitart ([place] (5/325)) 1 tab Q4 PRN PO SEVERE PAIN LEVEL 7-10 Last administered on 07/15/16 16:21; Admin Dose 1 TAB; Start at 20:30 Latanoprost (Xalatan) 1 drop QHS BOTH EYES Last administered on 08/10/16 21:10 ; Admin Dose 1 DROP; Start 07/09/16 at 21:00 Multivitamins Therapeutic (Theragran) 1 tab DAILY PO Last administered on 08:36; Admin Dose 1 TAB; Start 07/10/16 at 09:00 Olanzapine (Zyprexa) 5 mg QHS PO Last administered on 08/10/16 21:10; Admin Dose 5 MG; Start 07/09/16 at 21:00 Zinc Sulfate (Zinc Sulfate) 220 mg DAILY PO Last administered on 08/11/16 08: 35; Admin Dose 220 MG; Start 07/10/16 at 09:00 Acetaminophen (Tylenol Supp) 650 mg Q6H PRN [place] ELEVATED TEMPERATURE Last administered on 07/10/16 09:51; Admin Dose 650 MG; Start 07/10/16 at 09:30 Collagenase (Santyl) 1 applic DAILY TOP Last administered on 08/11/16 08:37; Admin Dose 1 APPLIC; Start 07/10/16 at 14:00 Bisacodyl (Dulcolax) 10 mg BID PO Last administered on 08/11/16 08:36; Admin Dose 10 MG; Start 07/13/16 at 15:00 Benazepril HCl (Lotensin) 20 mg DAILY PO Last administered on 08/11/16 08:36; Admin Dose 20 MG; Start 07/16/16 at 09:00 Zolpidem Tartrate (Ambien) 2.5 mg HS PRN PO INSOMNIA; Start 07/17/16 at 19:00 Epoetin Zana (Epogen (Esrd)) 6,000 units TuThSa@17 SC Last administered on 08/09 18:36; Admin Dose 6,000 UNITS; Start 07/17/16 at 20:00 Miscellaneous Information (Pending Santyl Order For Wound Care) This patient ellis... PRN PRN XX WOUND CARE; Start 07/18/16 at 07:00 Lorazepam (Ativan) 0.5 mg Q6H PRN PO ANXEITY Last administered on 07/19/16 22: 28; Admin Dose 0.5 MG; Start 07/18/16 at 16:00 Clonidine (Catapres) 0.1 mg TID PO Last administered on 08/07/16 09:56; Admin Dose 0.1 MG; Start 07/19/16 at 09:00; Status Future Hold Vancomycin HCl 125 mg 125 mg Q6 PO Last administered on 08/11/16 05:49; Admin Dose 125 MG; Start 07/21/16 at 19:00 Metronidazole (Flagyl 500 Mg (Pmx)) 100 ml @ 100 mls/hr Q8 IVPB Last administered on 08/11/16 05:49; Admin Dose 100 MLS/HR; Start 07/22/16 at 16:30 Lactobacillus Acidophilus/ Rhamnosus (Culturelle) 1 cap BID PO Last administered on 08/11/16 08:36; Admin Dose 1 CAP; Start 07/23/16 at 21:00 Ascorbic Acid (Vitamin C) 500 mg DAILY PO Last administered on 08/11/16 08:36 ; Admin Dose 500 MG; Start 07/26/16 at 09:00 Metoprolol Tartrate (Lopressor) 25 mg BID PO Last administered on 08/11/16 08: 36; Admin Dose 25 MG; Start 07/28/16 at 21:00 Hydralazine HCl (Apresoline) 10 mg Q4H PRN IV ELEVATED BLOOD PRESSURE Last administered on 07/29/16 14:50; Admin Dose 10 MG; Start 07/28/16 at 20:30 Nifedipine (Procardia Xl) 60 mg QAM PO Last administered on 08/11/16 08:35; Admin Dose 60 MG; Start 08/02/16 at 09:00 Nifedipine 30 mg 30 mg QHS PO Last administered on 08/10/16 21:09; Admin Dose 30 MG; Start 6/16/17 at 21:00 Daptomycin 470 mg/ Sodium Chloride 100 ml @ 200 mls/hr Q48H IVPB Last administered on 08/10/16 22:16; Admin Dose 200 MLS/HR; Start 08/02/16 at 22:00 Meropenem (Merrem 500 Mg/ 100 ml (Pmx)) 100 ml @ 200 mls/hr Q12 IVPB Last administered on 08/11/16 08:35; Admin Dose 200 MLS/HR; Start 08/08/16 at 17:00 JERO GALAN M.D. Aug 11, 2016 11:49
--- NOTE | 2016-08-11 13:57 | RADRPT ---
PROCEDURE: XR Chest. CLINICAL INDICATION: Follow-up pneumonia. TECHNIQUE: Single AP portable chest. COMPARISON: 08/08/2016 Chest x-ray FINDINGS: The cardiac silhouette is mildly enlarged but stable in size. There is interval decrease in vascula r congestion and bilateral alveolar and interstitial air space opacities. Grossly stable bilateral small to moderate-sized pleural effusions. Atherosclerotic calcification of the aorta. No pneumot horax. The osseous structures and soft tissues are unremarkable. IMPRESSION: 1. Mild cardiomegaly and improved CHF. 2. Persistent bilateral pleural effusions. No focal airspace consolidation. RPTAT:AAJJ Physician Karson Date Time Electronically viewed and signed by Physician Karson on 08/11/2016 13:57 ANTHONY/
--- NOTE | 2016-08-11 18:55 | PN ---
Date/Time of Note Date/Time of Note DATE: 08/11/16 TIME: 18:50 Assessment/Plan VTE Prophylaxis VTE Prophylaxis Intervention: SCD's Lines/Catheters IV [facility] Type [facility]from [facility] Saline Lock Urinary Cath still in place: Yes Reason Cath still needed: urinary retention Assessment/Plan Chief Complaint/Hosp Course Patient is awake alert remains hemodynamically stable, afebrile. BNP now and tomorrow. Assessment/Plan - Recurrent sepsis secondary to UTI. Dr. Langford is following an infection disease consultation. -Pseudomonas urinary tract infection. Continue antibiotics per ID. - Hypokalemia, potassium replaced, continue to monitor. - Osteomyelitis of bilateral heels, continue daptomycin until August 25 per ID. - Bilateral heel wounds, patient is evaluated by Dr. Bell in podiatry consultation with recommendation of continue current wound care and not to proceed with debridement. - C. difficile colitis. Dr. Henderson is following an infection disease consultation. Continue oral vancomycin and intravenous metronidazole. - Colitis ulcers per colonoscopy, continue to follow-up gastroenterology recommendations. - Infected wounds on bilateral lower extremities. Continue antibiotics per ID. - Acute kidney injury on chronic kidney disease stage III with electrolyte imbalances. Dr. Srinivasan is following in nephrology consultation. - Acute metabolic encephalopathy, resolving. - Hypertension. Continue clonidine, Procardia and benazepril - Chronic obstructive pulmonary disease. Continue DuoNeb. - Benign prostatic hypertrophy. Continue Flomax. - Multiple decubitus ulcers present on admission. Continue local wound care, offloading. - Acute cerebrovascular accident. Continue aspirin. - Dyslipidemia. Continue Lipitor. - Dementia with behavioral disturbance. Continue Zyprexa. Further recommendations based on clinical course. Plan of care discussed with Dr. Rene. Problems: Exam/Review of Systems Vital Signs Vitals Vital Signs Date Time Temp Pulse Resp B/P Pulse Ox O2 Delivery O2 Flow Rate FiO2 08/11/16 07:52 97.5 79 18 126/73 94 Intake and Output 08/10/16 08/10/16 08/11/16 15:00 23:00 07:00 Intake Total 100 ml 980 ml 700 ml Output Total 850 ml 820 ml Balance 100 ml 130 ml -120 ml Exam Constitutional: alert, frail Psych: confusion Head: normocephalic Neck: supple Respiratory: normal air movement Cardiovascular: nl pulses Gastrointestinal: non-tender, soft Genitourinary - Male: other (Avila catheter) Extremities: edema Skin: other (Multiple wounds) Results Result Diagram: 08/11/16 0455 08/10/16 0510 Results 24 hrs Laboratory Tests Test 08/11/16 04:55 White Blood Count 22.0 #H Red Blood Count 2.87 L Hemoglobin 8.3 L Hematocrit 25.4 L Mean Corpuscular Volume 88.5 Mean Corpuscular Hemoglobin 28.9 L Mean Corpuscular Hemoglobin Concent 32.7 Red Cell Distribution Width 18.1 H Platelet Count 386 # Mean Platelet Volume 9.8 Neutrophils % 75.5 Lymphocytes % 10.4 L Monocytes % 7.2 Eosinophils % 4.5 Basophils % 0.1 Nucleated Red Blood Cells % 0.0 Neutrophils # 16.6 H Lymphocytes # 2.3 Monocytes # 1.6 H Eosinophils # 1.0 H Basophils # 0.0 Nucleated Red Blood Cells # 0.0 Differential Comment AUTO w/SCAN Medications Medications Current Medications Acetaminophen (Tylenol Tab) 500 mg Q6H PRN PO PAIN AND OR ELEVATED TEMP; Start 07/09/16 at 20:30 Ondansetron HCl (Zofran Inj) 4 mg Q6H PRN IV NAUSEA AND/OR VOMITING; Start at 20:30 Aspirin (Aspirin) 81 mg DAILY PO Last administered on 08/11/16 08:36; Admin Dose 81 MG; Start 07/10/16 at 09:00 Benztropine Mesylate (Cogentin) 1 mg BID PO Last administered on 08/11/16 08: 38; Admin Dose 1 MG; Start 07/09/16 at 21:00 Finasteride (Proscar) 5 mg DAILY PO Last administered on 08/11/16 08:36; Admin Dose 5 MG; Start 07/10/16 at 09:00 Acetaminophen/ Hydrocodone Bitart ([place] (5/325)) 1 tab Q4 PRN PO SEVERE PAIN LEVEL 7-10 Last administered on 07/15/16 16:21; Admin Dose 1 TAB; Start at 20:30 Latanoprost (Xalatan) 1 drop QHS BOTH EYES Last administered on 08/10/16 21:10 ; Admin Dose 1 DROP; Start 07/09/16 at 21:00 Multivitamins Therapeutic (Theragran) 1 tab DAILY PO Last administered on 08:36; Admin Dose 1 TAB; Start 07/10/16 at 09:00 Olanzapine (Zyprexa) 5 mg QHS PO Last administered on 08/10/16 21:10; Admin Dose 5 MG; Start 07/09/16 at 21:00 Zinc Sulfate (Zinc Sulfate) 220 mg DAILY PO Last administered on 08/11/16 08: 35; Admin Dose 220 MG; Start 07/10/16 at 09:00 Acetaminophen (Tylenol Supp) 650 mg Q6H PRN [place] ELEVATED TEMPERATURE Last administered on 07/10/16 09:51; Admin Dose 650 MG; Start 07/10/16 at 09:30 Collagenase (Santyl) 1 applic DAILY TOP Last administered on 08/11/16 08:37; Admin Dose 1 APPLIC; Start 07/10/16 at 14:00 Bisacodyl (Dulcolax) 10 mg BID PO Last administered on 08/11/16 08:36; Admin Dose 10 MG; Start 07/13/16 at 15:00 Benazepril HCl (Lotensin) 20 mg DAILY PO Last administered on 08/11/16 08:36; Admin Dose 20 MG; Start 07/16/16 at 09:00 Zolpidem Tartrate (Ambien) 2.5 mg HS PRN PO INSOMNIA; Start 07/17/16 at 19:00 Epoetin Zana (Epogen (Esrd)) 6,000 units TuThSa@17 SC Last administered on 08/09 18:36; Admin Dose 6,000 UNITS; Start 07/17/16 at 20:00 Miscellaneous Information (Pending Santyl Order For Wound Care) This patient ellis... PRN PRN XX WOUND CARE; Start 07/18/16 at 07:00 Lorazepam (Ativan) 0.5 mg Q6H PRN PO ANXEITY Last administered on 07/19/16 22: 28; Admin Dose 0.5 MG; Start 07/18/16 at 16:00 Clonidine (Catapres) 0.1 mg TID PO Last administered on 08/07/16 09:56; Admin Dose 0.1 MG; Start 07/19/16 at 09:00; Status Future Hold Vancomycin HCl 125 mg 125 mg Q6 PO Last administered on 08/11/16 17:27; Admin Dose 125 MG; Start 07/21/16 at 19:00 Metronidazole (Flagyl 500 Mg (Pmx)) 100 ml @ 100 mls/hr Q8 IVPB Last administered on 08/11/16 13:20; Admin Dose 100 MLS/HR; Start 07/22/16 at 16:30 Lactobacillus Acidophilus/ Rhamnosus (Culturelle) 1 cap BID PO Last administered on 08/11/16 08:36; Admin Dose 1 CAP; Start 07/23/16 at 21:00 Ascorbic Acid (Vitamin C) 500 mg DAILY PO Last administered on 08/11/16 08:36 ; Admin Dose 500 MG; Start 07/26/16 at 09:00 Metoprolol Tartrate (Lopressor) 25 mg BID PO Last administered on 08/11/16 08: 36; Admin Dose 25 MG; Start 07/28/16 at 21:00 Hydralazine HCl (Apresoline) 10 mg Q4H PRN IV ELEVATED BLOOD PRESSURE Last administered on 07/29/16 14:50; Admin Dose 10 MG; Start 07/28/16 at 20:30 Nifedipine (Procardia Xl) 60 mg QAM PO Last administered on 08/11/16 08:35; Admin Dose 60 MG; Start 08/02/16 at 09:00 Nifedipine 30 mg 30 mg QHS PO Last administered on 08/10/16 21:09; Admin Dose 30 MG; Start 08/01/16 at 21:00 Daptomycin 470 mg/ Sodium Chloride 100 ml @ 200 mls/hr Q48H IVPB Last administered on 08/10/16 22:16; Admin Dose 200 MLS/HR; Start 08/02/16 at 22:00 Ceftazidime (Fortaz 1gm/50 ml (Pmx)) 50 ml @ 100 mls/hr DAILY IVPB ; Start at 09:00 ALE MCCONNELL Aug 11, 2016 18:55
[2016-08-11 19:54] VITALS: BP 112/68; RESP 18
[2016-08-11] MEDS: LATANOPROST 0.005% 2.5 ML OPH BOTH EYES SCH (20:57)
[2016-08-11] MEDS: OLANZAPINE 5 MG TAB PO SCH (20:57)
[2016-08-11 21:00] LABS: CALCIUM 6.7 mg/dl (8.4-10.2); CREATININE 2.29 mg/dl (0.61-1.24)
--- NOTE | 2016-08-11 21:02 | CONS ---
Date/Time of Note Date/Time of Note DATE: 08/11/16 TIME: 20:57 Assessment/Plan Assessment/Plan Chief Complaint/Hosp Course Serial labs continue to show stable renal fn Hct has improved prob with blood Tx carried out on 07/28 Problems: Additional Assessment/Plan Hct has dropped despite EPO Must leave lab work to minimum please Consultation Date/Type/Reason Admit Date/Time July 09, 2016 at 12:24 Initial Consult Date 07/11/16 Type of Consultation: renal Referring Provider: RONNIE PATEL MD 24 HR Interval Summary Free Text/Dictation Clinically unchanged Exam/Review of Systems Vital Signs Vitals Vital Signs Date Time Temp Pulse Resp B/P Pulse Ox O2 Delivery O2 Flow Rate FiO2 08/11/16 19:54 97.8 83 18 112/68 97 Intake and Output 08/10/16 08/10/16 08/11/16 15:00 23:00 07:00 Intake Total 100 ml 980 ml 700 ml Output Total 850 ml 820 ml Balance 100 ml 130 ml -120 ml Exam not oriented to time place & person Constitutional: alert, oriented, well developed Psych: nl mood/affect, no complaints Head: atraumatic, normocephalic Eyes: EOMI, PERRL, nl conjunctiva, nl lids, nl sclera ENMT: nl external ears & nose, nl lips & teeth, nl nasal mucosa & septum Neck: non-tender, supple Respiratory: clear to auscultation, normal air movement Cardiovascular: nl pulses, regular rate and rhythm Gastrointestinal: nl liver, spleen, non-tender, soft Musculoskeletal: nl extremities to inspection, nl gait and stance Extremities: normal pulses Neurological: [employer] II-XII intact, nl mental status, nl speech, nl strength Skin: nl turgor, No rash or lesions Lymph: nl lymph nodes Results Result Diagram: 08/11/16 0455 08/10/16 0510 Results 24 hrs Laboratory Tests Test 08/11/16 04:55 White Blood Count 22.0 #H Red Blood Count 2.87 L Hemoglobin 8.3 L Hematocrit 25.4 L Mean Corpuscular Volume 88.5 Mean Corpuscular Hemoglobin 28.9 L Mean Corpuscular Hemoglobin Concent 32.7 Red Cell Distribution Width 18.1 H Platelet Count 386 # Mean Platelet Volume 9.8 Neutrophils % 75.5 Lymphocytes % 10.4 L Monocytes % 7.2 Eosinophils % 4.5 Basophils % 0.1 Nucleated Red Blood Cells % 0.0 Neutrophils # 16.6 H Lymphocytes # 2.3 Monocytes # 1.6 H Eosinophils # 1.0 H Basophils # 0.0 Nucleated Red Blood Cells # 0.0 Differential Comment AUTO w/SCAN Medications Medications Current Medications Acetaminophen (Tylenol Tab) 500 mg Q6H PRN PO PAIN AND OR ELEVATED TEMP; Start 07/09/16 at 20:30 Ondansetron HCl (Zofran Inj) 4 mg Q6H PRN IV NAUSEA AND/OR VOMITING; Start at 20:30 Aspirin (Aspirin) 81 mg DAILY PO Last administered on 08/11/16 08:36; Admin Dose 81 MG; Start 07/10/16 at 09:00 Benztropine Mesylate (Cogentin) 1 mg BID PO Last administered on 08/11/16 08: 38; Admin Dose 1 MG; Start 07/09/16 at 21:00 Finasteride (Proscar) 5 mg DAILY PO Last administered on 08/11/16 08:36; Admin Dose 5 MG; Start 07/10/16 at 09:00 Acetaminophen/ Hydrocodone Bitart ([place] (5/325)) 1 tab Q4 PRN PO SEVERE PAIN LEVEL 7-10 Last administered on 07/15/16 16:21; Admin Dose 1 TAB; Start at 20:30 Latanoprost (Xalatan) 1 drop QHS BOTH EYES Last administered on 08/10/16 21:10 ; Admin Dose 1 DROP; Start 07/09/16 at 21:00 Multivitamins Therapeutic (Theragran) 1 tab DAILY PO Last administered on 08:36; Admin Dose 1 TAB; Start 07/10/16 at 09:00 Olanzapine (Zyprexa) 5 mg QHS PO Last administered on 08/10/16 21:10; Admin Dose 5 MG; Start 07/09/16 at 21:00 Zinc Sulfate (Zinc Sulfate) 220 mg DAILY PO Last administered on 08/11/16 08: 35; Admin Dose 220 MG; Start 07/10/16 at 09:00 Acetaminophen (Tylenol Supp) 650 mg Q6H PRN [place] ELEVATED TEMPERATURE Last administered on 07/10/16 09:51; Admin Dose 650 MG; Start 07/10/16 at 09:30 Collagenase (Santyl) 1 applic DAILY TOP Last administered on 08/11/16 08:37; Admin Dose 1 APPLIC; Start 07/10/16 at 14:00 Bisacodyl (Dulcolax) 10 mg BID PO Last administered on 08/11/16 08:36; Admin Dose 10 MG; Start 07/13/16 at 15:00 Benazepril HCl (Lotensin) 20 mg DAILY PO Last administered on 08/11/16 08:36; Admin Dose 20 MG; Start 07/16/16 at 09:00 Zolpidem Tartrate (Ambien) 2.5 mg HS PRN PO INSOMNIA; Start 07/17/16 at 19:00 Epoetin Zana (Epogen (Esrd)) 6,000 units TuThSa@17 SC Last administered on 08/09 18:36; Admin Dose 6,000 UNITS; Start 07/17/16 at 20:00 Miscellaneous Information (Pending Santyl Order For Wound Care) This patient ellis... PRN PRN XX WOUND CARE; Start 07/18/16 at 07:00 Lorazepam (Ativan) 0.5 mg Q6H PRN PO ANXEITY Last administered on 07/19/16 22: 28; Admin Dose 0.5 MG; Start 07/18/16 at 16:00 Clonidine (Catapres) 0.1 mg TID PO Last administered on 08/07/16 09:56; Admin Dose 0.1 MG; Start 07/19/16 at 09:00; Status Future Hold Vancomycin HCl 125 mg 125 mg Q6 PO Last administered on 08/11/16 17:27; Admin Dose 125 MG; Start 07/21/16 at 19:00 Metronidazole (Flagyl 500 Mg (Pmx)) 100 ml @ 100 mls/hr Q8 IVPB Last administered on 08/11/16 13:20; Admin Dose 100 MLS/HR; Start 07/22/16 at 16:30 Lactobacillus Acidophilus/ Rhamnosus (Culturelle) 1 cap BID PO Last administered on 08/11/16 08:36; Admin Dose 1 CAP; Start 07/23/16 at 21:00 Ascorbic Acid (Vitamin C) 500 mg DAILY PO Last administered on 08/11/16 08:36 ; Admin Dose 500 MG; Start 07/26/16 at 09:00 Metoprolol Tartrate (Lopressor) 25 mg BID PO Last administered on 08/11/16 08: 36; Admin Dose 25 MG; Start 07/28/16 at 21:00 Hydralazine HCl (Apresoline) 10 mg Q4H PRN IV ELEVATED BLOOD PRESSURE Last administered on 07/29/16 14:50; Admin Dose 10 MG; Start 07/28/16 at 20:30 Nifedipine (Procardia Xl) 60 mg QAM PO Last administered on 08/11/16 08:35; Admin Dose 60 MG; Start 08/02/16 at 09:00 Nifedipine 30 mg 30 mg QHS PO Last administered on 08/10/16 21:09; Admin Dose 30 MG; Start 08/01/16 at 21:00 Daptomycin 470 mg/ Sodium Chloride 100 ml @ 200 mls/hr Q48H IVPB Last administered on 08/10/16 22:16; Admin Dose 200 MLS/HR; Start 08/02/16 at 22:00 Ceftazidime (Fortaz 1gm/50 ml (Pmx)) 50 ml @ 100 mls/hr DAILY IVPB ; Start at 09:00 JUANA AYALA MD Aug 11, 2016 21:02
--- NOTE | 2016-08-11 21:46 | PN ---
DATE: 08/11/2016 SUBJECTIVE: The patient does not have any complaints. OBJECTIVE: GENERAL: The patient appears alert, awake, to some extent oriented, sitting in the bed and is not i n acute distress, answers questions to some extent properly. VITAL SIGNS: Temperature 97.5, heart rate 79, respirations 18, blood pressure 126/72, saturation 94 % on room air. LABORATORY DATA: WBC has gone up today to 22,000 with 75% segmented. Three days ago, ____, so it i s trending towards normalization gradually. Chemistry has not been done today. ABDOMEN: Soft. EXTREMITIES: No calf tenderness. Sacrococcygeal wound is being treated locally with Santyl, adapti c, and a sponge dressing. Bilateral heels, black eschar due to pressure necrosis is being treated l ocally by application of Santyl and Adaptic and Kerlix wrapping around and protecting them in the he el protectors. Systemically, the patient is receiving different kind of antibiotics per infectious disease for ____ of the osteomyelitis and also for C. diff that the patient has had. Chest x-ray today is reported as follows: 1. Mild cardiomegaly and improved CHF. 2. Persistent bilateral pleural effusions. 3. No focal airspace consolidation is seen. So the chest x-ray is improving as well. PLAN: Continue local care of the decubitus ulcers and sacrococcygeal area and bilateral heels. Ot er medical issues are being addressed by specialist consultants. We will continue to follow. Dictated By: LISSETH THORPE MD PS/NTS Conf#: [id number] DID#: [id number] CC: RONNIE PATEL MD;*EndCC*
[2016-08-12] MEDS: metroNIDAZOLE 500 MG/NS (PMX) 100 ML IVPB SCH ×3 (05:37→21:56)
[2016-08-12] MEDS: VANCOMYCIN HCL 250 MG/5ML POSYG PO SCH ×4 (05:37→23:30)
[2016-08-12 05:59] LABS: ADD SCAN DIFF NO
[2016-08-12 06:20] LABS: ABNORMAL IP MESSAGE 1; BASOPHILS % 0.2 % (0.0-2.0); EOSINOPHILS % 4.7 % (0.0-7.0); HEMATOCRIT 26.6 % (42.0-52.0); HEMOGLOBIN 8.6 g/dl (14.0-18.0); LYMPHOCYTES # 2.1 10^3/ul (0.8-2.9); MEAN CORPUSCULAR HEMOGLOBIN 29.1 pg (29.0-33.0); MEAN CORPUSCULAR HGB CONC 32.3 g/dl (32.0-37.0); MEAN CORPUSCULAR VOLUME 89.9 fl (82.0-101.0); MEAN PLATELET VOLUME 9.5 fl (7.4-10.4); MONOCYTE # 1.7 10^3/ul (0.3-0.9); MONOCYTES % 7.8 % (0.0-11.0); NEUTROPHIL # 15.9 10^3/ul (1.6-7.5); NEUTROPHILS % 74.9 % (39.0-77.0); PLATELET COUNT 520 10^3/UL (140-415); RED BLOOD COUNT 2.96 10^6/ul (4.70-6.10); RED CELL DISTRIBUTION WIDTH 18.7 % (11.5-14.5); WHITE BLOOD COUNT 21.2 10^3/ul (4.8-10.8)
[2016-08-12 07:07] LABS: CALCIUM 6.4 mg/dl (8.4-10.2); CREATININE 2.26 mg/dl (0.61-1.24); POTASSIUM 3.1 mmol/L (3.5-5.1)
[2016-08-12 07:44] VITALS: BP 129/71; RESP 20
--- NOTE | 2016-08-12 08:09 | PN ---
Date/Time of Note Date/Time of Note DATE: 08/12/16 TIME: 08:04 Assessment/Plan Lines/Catheters IV Catheter Type (from Nrs): Saline Lock Avila in Place (from Nrs): Yes Assessment/Plan Chief Complaint/Hosp Course -Bilateral lower extremity atherosclerosis with gangrene and heel ulcers. The patient is a bedridden with baseline dementia and bilateral knee contractures > 45 degrees. Unfortunately, the patient would not be a candidate for any vascular intervention for an increase of perfusion. Upon evaluation of his lower extremity ultrasound, patient does have infrainguinal disease throughout bilateral lower extremities. At the moment, the limbs do not look life threatening in terms of sepsis, significant rest pain or worsening wounds. Would recommend if the patient has one of the three aforementioned to undergo above knee amputation, as that would be the alternatives to his local wound care and multiple issues of his lower extremity. -Optimize vascular status (BP meds, diet, nutrition, exercise, sugar control, antiplatelets). -Discussed findings, plan and management with the primary service. -Thank you for allowing us to partake in the care of your patient. Please call with any questions. Problems: Subjective 24 Hr Interval Summary no new vascular events overnight Exam/Review of Systems Vital Signs Vitals Vital Signs Date Time Temp Pulse Resp B/P Pulse Ox O2 Delivery O2 Flow Rate FiO2 08/12/16 07:44 98.3 82 20 129/71 93 08/12/16 02:41 21 Intake and Output 08/11/16 08/11/16 08/12/16 15:00 23:00 07:00 Intake Total 100 ml 1160 ml 560 ml Output Total 525 ml 800 ml Balance 100 ml 635 ml -240 ml Exam Free Text/Dictation GENERAL: Patient is awake; however, not oriented to more than just place. PULMONARY: Bilateral coarse breath sounds CARDIOVASCULAR: S1, S2 present. ABDOMEN: Soft, nontender, nondistended. Bowel sounds positive. EXTREMITIES: -Right lower extremity palpable femoral pulse, nonpalpable pedal pulse. Motor, sensory limited as the patient unable to follow commands, knee contracture more than 45 degrees multiple ulcers that are identified on the lower leg and dry. Heel ulcer with eschar and gangrene. -Left lower extremity palpable femoral pulse, nonpalpable pedal pulse. Motor and sensory limited as unable to ascertain as the patient is not unable to follow commands, Capillary refill about 3 to 4 seconds. There are multiple ulcers and also heel ulcer with Eschar and gangrene Results Result Diagram: 08/12/16 0545 08/12/16 0545 KARYN HASTINGS MD Aug 12, 2016 08:09
[2016-08-12] MEDS: CALCIUM CARBONATE 750 MG CHEW TAB PO SCH ×3 (09:44→17:46)
[2016-08-12] MEDS: ZINC SULFATE 220 MG CAP PO SCH (09:45)
[2016-08-12] MEDS: NIFEdipine (XL) 30 MG TAB PO SCH ×2 (09:45→21:55)
[2016-08-12] MEDS: CEFTAZIDIME 1GM/50 ML (PMX) 50 ML IVPB SCH (09:45)
[2016-08-12] MEDS: BENAZEPRIL 20 MG TAB PO SCH (09:46)
[2016-08-12] MEDS: PANTOPRAZOLE (EC) 40 MG TAB PO SCH (09:46)
[2016-08-12] MEDS: FINASTERIDE 5 MG TAB PO SCH (09:46)
[2016-08-12] MEDS: MULTIVITAMINS THERAPEUTIC TAB PO SCH (09:46)
[2016-08-12] MEDS: ASCORBIC ACID 500 MG TAB PO SCH (09:46)
[2016-08-12] MEDS: ASPIRIN 81 MG TAB PO SCH (09:46)
[2016-08-12] MEDS: LACTOBACILLUS RHAMNOSUS CAP PO SCH ×2 (09:46→21:55)
[2016-08-12] MEDS: BISACODYL (EC) 5 MG TAB PO SCH ×2 (09:46→21:55)
[2016-08-12] MEDS: BENZTROPINE 1 MG TAB PO SCH ×2 (09:47→22:07)
[2016-08-12] MEDS: METOPROLOL 25 MG TAB PO SCH ×2 (09:47→21:55)
[2016-08-12] MEDS: COLLAGENASE 30 GM TUBE TOP SCH (09:59)
--- NOTE | 2016-08-12 12:33 | CONS ---
Date/Time of Note Date/Time of Note DATE: 08/12/16 TIME: 12:29 Assessment/Plan Assessment/Plan Chief Complaint/Hosp Course IMPRESSION: 1. Preoperative evaluation prior to debridement of heel decubitus ulcers.- negative trop x 3/NL EF by echo this admit with no sig contraindicated valve lesions. Ok to proceed to OR on BB continue pre-post op without further non- invasive eval at moderate risk if surgical intervention is required 2. Hypertension-uncontrolled 3. Abnormal electrocardiogram with anteroseptal Q's and normal ejection fraction by echo this admit. 4. Clostridium difficile Colitis. 5. Renal failure. 6. Encephalopathy. 7. Chronic obstructive pulmonary disease. 8. History of cerebrovascular accident. 9. Dyslipidemia. 10. Dementia. 11. Anemia. 12. Leukocytosis. 12. Coagulopathy. 14. CHF-diastolic acute on chronic Recc: -Continue asa -Continue abx's and f/u cx data -local wound care/conservative management per surgical consults -Continue current BB/ACEI/procardia XL with well controlled BP -D/C clonidine as held and BP well controlled -Follow volume status closely and will start gentle daily lasix diuresis Problems: Consultation Date/Type/Reason Admit Date/Time July 09, 2016 at 12:24 Initial Consult Date 07/26/16 Type of Consultation: cardiology Reason for Consultation CHF Referring Provider: RONNIE PATEL MD Exam/Review of Systems Vital Signs Vitals Vital Signs Date Time Temp Pulse Resp B/P Pulse Ox O2 Delivery O2 Flow Rate FiO2 08/12/16 07:44 98.3 82 20 129/71 93 08/12/16 02:41 21 Intake and Output 08/11/16 08/11/16 08/12/16 15:00 23:00 07:00 Intake Total 100 ml 1160 ml 560 ml Output Total 525 ml 800 ml Balance 100 ml 635 ml -240 ml Exam Review of Systems: CONSTITUTIONAL: No fevers, chills. PULMONARY: No sob CARDIOVASCULAR: No chest pain/palpitations GASTROINTESTINAL: No nausea/vomiting. GENITOURINARY: No hematuria/dysuria. MUSCULOSKELETAL: No myagias/arthalgias. PSYCHIATRIC: The patient denies depression. NEUROLOGIC: No weakness Constitutional: other (sleeping, arousable) Psych: no complaints Head: normocephalic ENMT: mucosa pink and moist Neck: jvd (9 cm water), supple Respiratory: diminished breath sounds (at bases/B) Cardiovascular: regular rate and rhythm Gastrointestinal: non-tender, soft Musculoskeletal: muscle weakness (generalized) Extremities: edema (trace/B), other (heels covered by dressing) Neurological: lethargic Results Result Diagram: 08/12/16 0545 08/12/16 0545 Results 24 hrs Laboratory Tests Test 08/11/16 20:25 08/12/16 05:45 Sodium Level 143 146 H Potassium Level 3.0 L 3.1 L Chloride Level 117 H 120 H Carbon Dioxide Level 20 L 18 L Anion Gap 9 11 Blood Urea Nitrogen 34 H 33 H Creatinine 2.29 H 2.26 H Glucose Level 98 82 Calcium Level 6.7 L 6.4 L White Blood Count 21.2 H Red Blood Count 2.96 L Hemoglobin 8.6 L Hematocrit 26.6 L Mean Corpuscular Volume 89.9 Mean Corpuscular Hemoglobin 29.1 Mean Corpuscular Hemoglobin Concent 32.3 Red Cell Distribution Width 18.7 H Platelet Count 520 #H Mean Platelet Volume 9.5 Neutrophils % 74.9 Lymphocytes % 10.0 L Monocytes % 7.8 Eosinophils % 4.7 Basophils % 0.2 Nucleated Red Blood Cells % 0.0 Neutrophils # 15.9 H Lymphocytes # 2.1 Monocytes # 1.7 H Eosinophils # 1.0 H Basophils # 0.0 Nucleated Red Blood Cells # 0.0 Medications Medications Current Medications Acetaminophen (Tylenol Tab) 500 mg Q6H PRN PO PAIN AND OR ELEVATED TEMP; Start 07/09/16 at 20:30 Ondansetron HCl (Zofran Inj) 4 mg Q6H PRN IV NAUSEA AND/OR VOMITING; Start at 20:30 Aspirin (Aspirin) 81 mg DAILY PO Last administered on 08/12/16 09:46; Admin Dose 81 MG; Start 07/10/16 at 09:00 Benztropine Mesylate (Cogentin) 1 mg BID PO Last administered on 08/12/16 09: 47; Admin Dose 1 MG; Start 07/09/16 at 21:00 Finasteride (Proscar) 5 mg DAILY PO Last administered on 08/12/16 09:46; Admin Dose 5 MG; Start 07/10/16 at 09:00 Acetaminophen/ Hydrocodone Bitart ([place] (5/325)) 1 tab Q4 PRN PO SEVERE PAIN LEVEL 7-10 Last administered on 07/15/16 16:21; Admin Dose 1 TAB; Start at 20:30 Latanoprost (Xalatan) 1 drop QHS BOTH EYES Last administered on 08/11/16 20:57 ; Admin Dose 1 DROP; Start 07/09/16 at 21:00 Multivitamins Therapeutic (Theragran) 1 tab DAILY PO Last administered on 09:46; Admin Dose 1 TAB; Start 07/10/16 at 09:00 Olanzapine (Zyprexa) 5 mg QHS PO Last administered on 08/11/16 20:57; Admin Dose 5 MG; Start 07/09/16 at 21:00 Zinc Sulfate (Zinc Sulfate) 220 mg DAILY PO Last administered on 08/12/16 09: 45; Admin Dose 220 MG; Start 07/10/16 at 09:00 Acetaminophen (Tylenol Supp) 650 mg Q6H PRN [place] ELEVATED TEMPERATURE Last administered on 07/10/16 09:51; Admin Dose 650 MG; Start 07/10/16 at 09:30 Collagenase (Santyl) 1 applic DAILY TOP Last administered on 08/12/16 09:59; Admin Dose 1 APPLIC; Start 07/10/16 at 14:00 Bisacodyl (Dulcolax) 10 mg BID PO Last administered on 08/12/16 09:46; Admin Dose 10 MG; Start 07/13/16 at 15:00 Benazepril HCl (Lotensin) 20 mg DAILY PO Last administered on 08/12/16 09:46; Admin Dose 20 MG; Start 07/16/16 at 09:00 Zolpidem Tartrate (Ambien) 2.5 mg HS PRN PO INSOMNIA; Start 07/17/16 at 19:00 Miscellaneous Information (Pending Santyl Order For Wound Care) This patient ellis... PRN PRN XX WOUND CARE; Start 07/18/16 at 07:00 Lorazepam (Ativan) 0.5 mg Q6H PRN PO ANXEITY Last administered on 07/19/16 22: 28; Admin Dose 0.5 MG; Start 07/18/16 at 16:00 Clonidine (Catapres) 0.1 mg TID PO Last administered on 08/07/16 09:56; Admin Dose 0.1 MG; Start 07/19/16 at 09:00; Status Future Hold Vancomycin HCl 125 mg 125 mg Q6 PO Last administered on 08/12/16 05:37; Admin Dose 125 MG; Start 07/21/16 at 19:00 Metronidazole (Flagyl 500 Mg (Pmx)) 100 ml @ 100 mls/hr Q8 IVPB Last administered on 08/12/16 05:37; Admin Dose 100 MLS/HR; Start 07/22/16 at 16:30 Lactobacillus Acidophilus/ Rhamnosus (Culturelle) 1 cap BID PO Last administered on 08/12/16 09:46; Admin Dose 1 CAP; Start 07/23/16 at 21:00 Ascorbic Acid (Vitamin C) 500 mg DAILY PO Last administered on 08/12/16 09:46 ; Admin Dose 500 MG; Start 07/26/16 at 09:00 Metoprolol Tartrate (Lopressor) 25 mg BID PO Last administered on 08/12/16 09: 47; Admin Dose 25 MG; Start 07/28/16 at 21:00 Hydralazine HCl (Apresoline) 10 mg Q4H PRN IV ELEVATED BLOOD PRESSURE Last administered on 07/29/16 14:50; Admin Dose 10 MG; Start 07/28/16 at 20:30 Nifedipine (Procardia Xl) 60 mg QAM PO Last administered on 08/12/16 09:45; Admin Dose 60 MG; Start 08/02/16 at 09:00 Nifedipine 30 mg 30 mg QHS PO Last administered on 08/11/16 20:58; Admin Dose 30 MG; Start 08/01/16 at 21:00 Daptomycin 470 mg/ Sodium Chloride 100 ml @ 200 mls/hr Q48H IVPB Last administered on 08/10/16 22:16; Admin Dose 200 MLS/HR; Start 08/02/16 at 22:00 Ceftazidime (Fortaz 1gm/50 ml (Pmx)) 50 ml @ 100 mls/hr DAILY IVPB Last administered on 08/12/16 09:45; Admin Dose 100 MLS/HR; Start 08/12/16 at 09:00 Epoetin Zana (Epogen (Esrd)) 8,000 units TuThSa@[facility] [place] ; Start 08/12/16 at 17:00 PACHECO COHEN Aug 12, 2016 12:33
--- NOTE | 2016-08-12 13:51 | CONS ---
Date/Time of Note Date/Time of Note DATE: 08/12/16 TIME: 13:45 Assessment/Plan Assessment/Plan Chief Complaint/Hosp Course - possible recurrent sepsis due to UTI - UTI due to pseudomonas - sepsis due to wound infection and OM of b/l heel and C diff colitis - infection of wounds of b/l heel due to MRSA, enterococcus spp and corynebacter jeikeium (grp JK); MRI showed early osteomyelitis at b/l posterior calcaneal margin. - unstageable decub of b/l heel - C diff colitis - resolving - s/p possible HCAP, Pt completed empiric cefepime (07/10/2016-07/19/2016); CXR on 07/20/2016 showed improvement. 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 Improved after its discontinuation recommendations: - continue renally dosed ceftazidime (08/11/2016-); s/p meropenem - MRI from 08/01/2016 showed early osteomyelitis at b/l posterior calcaneal margin. We recommend total 6 weeks of IV antibiotic. - continue renally dosed IV daptomycin through 08/25/2016 (Pt received IV vancomycin, then linezolid before). CK=27 on 08/03/2016. Will repeat weekly - if Pt gets transferred to SNF, please order weekly CBC, BMP, CK while Pt's on IV antibiotics - continue PO vancomycin (07/15/2016-) and IV Flagyl (07/22/2016-) while Pt's on IV antibiotic Management d/w DANIEL Jenkins and Dr. Henderson Problems: Consultation Date/Type/Reason Admit Date/Time July 09, 2016 at 12:24 Initial Consult Date 07/11/16 Type of Consultation: Infectious Disase Referring Provider: RONNIE PATEL MD Exam/Review of Systems Vital Signs Vitals Vital Signs Date Time Temp Pulse Resp B/P Pulse Ox O2 Delivery O2 Flow Rate FiO2 08/12/16 07:44 98.3 82 20 129/71 93 08/12/16 02:41 21 Intake and Output 08/11/16 08/11/16 08/12/16 15:00 23:00 07:00 Intake Total 100 ml 1160 ml 560 ml Output Total 525 ml 800 ml Balance 100 ml 635 ml -240 ml Exam Constitutional: alert, well developed, other (demented) Psych: confusion Head: atraumatic, normocephalic Eyes: nl conjunctiva, nl lids ENMT: nl external ears & nose, nl nasal mucosa & septum Neck: supple Respiratory: clear to auscultation, normal air movement Cardiovascular: nl pulses, regular rate and rhythm, Gastrointestinal: soft, mildly distended, NT Genitourinary - Male: Avila catheter intact with dark mary urine with sediments Musculoskeletal: joint tenderness (B heel with dressing intact) Extremities: edema Neurological: confused Skin: rash or lesions (wounds - see nurse note and photo in chart for details) Results Result Diagram: 08/12/16 0545 08/12/16 0545 Results 24 hrs Laboratory Tests Test 08/11/16 20:25 08/12/16 05:45 Sodium Level 143 146 H Potassium Level 3.0 L 3.1 L Chloride Level 117 H 120 H Carbon Dioxide Level 20 L 18 L Anion Gap 9 11 Blood Urea Nitrogen 34 H 33 H Creatinine 2.29 H 2.26 H Glucose Level 98 82 Calcium Level 6.7 L 6.4 L White Blood Count 21.2 H Red Blood Count 2.96 L Hemoglobin 8.6 L Hematocrit 26.6 L Mean Corpuscular Volume 89.9 Mean Corpuscular Hemoglobin 29.1 Mean Corpuscular Hemoglobin Concent 32.3 Red Cell Distribution Width 18.7 H Platelet Count 520 #H Mean Platelet Volume 9.5 Neutrophils % 74.9 Lymphocytes % 10.0 L Monocytes % 7.8 Eosinophils % 4.7 Basophils % 0.2 Nucleated Red Blood Cells % 0.0 Neutrophils # 15.9 H Lymphocytes # 2.1 Monocytes # 1.7 H Eosinophils # 1.0 H Basophils # 0.0 Nucleated Red Blood Cells # 0.0 Medications Medications Current Medications Acetaminophen (Tylenol Tab) 500 mg Q6H PRN PO PAIN AND OR ELEVATED TEMP; Start 5/24/17 at 20:30 Ondansetron HCl (Zofran Inj) 4 mg Q6H PRN IV NAUSEA AND/OR VOMITING; Start at 20:30 Aspirin (Aspirin) 81 mg DAILY PO Last administered on 08/12/16 09:46; Admin Dose 81 MG; Start 07/10/16 at 09:00 Benztropine Mesylate (Cogentin) 1 mg BID PO Last administered on 08/12/16 09: 47; Admin Dose 1 MG; Start 07/09/16 at 21:00 Finasteride (Proscar) 5 mg DAILY PO Last administered on 08/12/16 09:46; Admin Dose 5 MG; Start 07/10/16 at 09:00 Acetaminophen/ Hydrocodone Bitart ([place] (5/325)) 1 tab Q4 PRN PO SEVERE PAIN LEVEL 7-10 Last administered on 07/15/16 16:21; Admin Dose 1 TAB; Start at 20:30 Latanoprost (Xalatan) 1 drop QHS BOTH EYES Last administered on 08/11/16 20:57 ; Admin Dose 1 DROP; Start 07/09/16 at 21:00 Multivitamins Therapeutic (Theragran) 1 tab DAILY PO Last administered on 09:46; Admin Dose 1 TAB; Start 07/10/16 at 09:00 Olanzapine (Zyprexa) 5 mg QHS PO Last administered on 08/11/16 20:57; Admin Dose 5 MG; Start 07/09/16 at 21:00 Zinc Sulfate (Zinc Sulfate) 220 mg DAILY PO Last administered on 08/12/16 09: 45; Admin Dose 220 MG; Start 07/10/16 at 09:00 Acetaminophen (Tylenol Supp) 650 mg Q6H PRN [place] ELEVATED TEMPERATURE Last administered on 07/10/16 09:51; Admin Dose 650 MG; Start 07/10/16 at 09:30 Collagenase (Santyl) 1 applic DAILY TOP Last administered on 08/12/16 09:59; Admin Dose 1 APPLIC; Start 07/10/16 at 14:00 Bisacodyl (Dulcolax) 10 mg BID PO Last administered on 08/12/16 09:46; Admin Dose 10 MG; Start 07/13/16 at 15:00 Benazepril HCl (Lotensin) 20 mg DAILY PO Last administered on 08/12/16 09:46; Admin Dose 20 MG; Start 07/16/16 at 09:00 Zolpidem Tartrate (Ambien) 2.5 mg HS PRN PO INSOMNIA; Start 07/17/16 at 19:00 [facility]isc[facility] This patient ellis... PRN PRN XX WOUND CARE; Start 07/18/16 at 07:00 Lorazepam (Ativan) 0.5 mg Q6H PRN PO ANXEITY Last administered on 07/19/16 22: 28; Admin Dose 0.5 MG; Start 07/18/16 at 16:00 Vancomycin HCl 125 mg 125 mg Q6 PO Last administered on 08/12/16 13:13; Admin Dose 125 MG; Start 07/21/16 at 19:00 Metronidazole (Flagyl 500 Mg (Pmx)) 100 ml @ 100 mls/hr Q8 IVPB Last administered on 08/12/16 05:37; Admin Dose 100 MLS/HR; Start 07/22/16 at 16:30 Lactobacillus Acidophilus/ Rhamnosus (Culturelle) 1 cap BID PO Last administered on 08/12/16 09:46; Admin Dose 1 CAP; Start 07/23/16 at 21:00 Ascorbic Acid (Vitamin C) 500 mg DAILY PO Last administered on 08/12/16 09:46 ; Admin Dose 500 MG; Start 07/26/16 at 09:00 Metoprolol Tartrate (Lopressor) 25 mg BID PO Last administered on 08/12/16 09: 47; Admin Dose 25 MG; Start 07/28/16 at 21:00 Hydralazine HCl (Apresoline) 10 mg Q4H PRN IV ELEVATED BLOOD PRESSURE Last administered on 07/29/16 14:50; Admin Dose 10 MG; Start 07/28/16 at 20:30 Nifedipine (Procardia Xl) 60 mg QAM PO Last administered on 08/12/16 09:45; Admin Dose 60 MG; Start 08/02/16 at 09:00 Nifedipine 30 mg 30 mg QHS PO Last administered on 08/11/16 20:58; Admin Dose 30 MG; Start 6/16/17 at 21:00 Daptomycin 470 mg/ Sodium Chloride 100 ml @ 200 mls/hr Q48H IVPB Last administered on 08/10/16 22:16; Admin Dose 200 MLS/HR; Start 08/02/16 at 22:00 Ceftazidime (Fortaz 1gm/50 ml (Pmx)) 50 ml @ 100 mls/hr DAILY IVPB Last administered on 08/12/16 09:45; Admin Dose 100 MLS/HR; Start 08/12/16 at 09:00 Epoetin Zana (Epogen (Esrd)) 8,000 units TuThSa@17 SC ; Start 08/12/16 at 17:00 Furosemide (Lasix) 20 mg DAILY IV ; Start 08/13/16 at 09:00 WADE PINK NP Aug 12, 2016 13:51
[2016-08-12] MEDS ORDERED: POTASSIUM CHLORIDE 20 MEQ POWDER FOR ORAL SOLN PO ONE (14:30)
--- NOTE | 2016-08-12 14:31 | PN ---
Date/Time of Note Date/Time of Note DATE: 08/12/16 TIME: 14:20 Assessment/Plan VTE Prophylaxis VTE Prophylaxis Intervention: SCD's Lines/Catheters IV C[facility]ter Type (from [facility]): [place] [facility] Urinary Cath still in place: Yes Reason Cath still needed: urinary retention Assessment/Plan Chief Complaint/Hosp Course Patient with persistent hypo-kalemia, potassium replacement ordered, aware of nephrology recs not ordering daily labs due to hemoglobin trending down noted. Patient is awake alert denies any pain, hemodynamically stable. Assessment/Plan - Hypokalemia, replacement ordered. - Recurrent sepsis secondary to UTI. Dr. Langford is following an infection disease consultation. - Pseudomonas urinary tract infection. Continue antibiotics per ID. - Osteomyelitis of bilateral heels, continue daptomycin until August 25 per ID. - Bilateral heel wounds, patient is evaluated by Dr. Bell in podiatry consultation with recommendation of continue current wound care and not to proceed with debridement. - C. difficile colitis. Dr. Henderson is following an infection disease consultation. Continue oral vancomycin and intravenous metronidazole. - Colitis ulcers per colonoscopy, continue to follow-up gastroenterology recommendations. - Infected wounds on bilateral lower extremities. Continue antibiotics per ID. - Acute kidney injury on chronic kidney disease stage III with electrolyte imbalances. Dr. Srinivasan is following in nephrology consultation. - Acute metabolic encephalopathy, resolved. - Hypertension. Continue clonidine, Procardia and benazepril - Chronic obstructive pulmonary disease. Continue DuoNeb. - Benign prostatic hypertrophy. Continue Flomax. - Multiple decubitus ulcers present on admission. Continue local wound care, offloading. - Acute cerebrovascular accident. Continue aspirin. - Dyslipidemia. Continue Lipitor. - Dementia with behavioral disturbance. Continue Zyprexa. Further recommendations based on clinical course. Plan of care discussed with Dr. Rene. Problems: Exam/Review of Systems Vital Signs Vitals Vital Signs Date Time Temp Pulse Resp B/P Pulse Ox O2 Delivery O2 Flow Rate FiO2 08/12/16 07:44 98.3 82 20 129/71 93 08/12/16 02:41 21 Intake and Output 08/11/16 08/11/16 08/12/16 15:00 23:00 07:00 Intake Total 100 ml 1160 ml 560 ml Output Total 525 ml 800 ml Balance 100 ml 635 ml -240 ml Exam Constitutional: alert, frail Psych: confusion Head: normocephalic Neck: supple Respiratory: normal air movement Cardiovascular: nl pulses Gastrointestinal: non-tender, soft Genitourinary - Male: other (Avila catheter) Extremities: edema Skin: other (Multiple wounds) Results Result Diagram: 08/12/16 0545 08/12/16 0545 Results 24 hrs Laboratory Tests Test 08/11/16 20:25 08/12/16 05:45 Sodium Level 143 146 H Potassium Level 3.0 L 3.1 L Chloride Level 117 H 120 H Carbon Dioxide Level 20 L 18 L Anion Gap 9 11 Blood Urea Nitrogen 34 H 33 H Creatinine 2.29 H 2.26 H Glucose Level 98 82 Calcium Level 6.7 L 6.4 L White Blood Count 21.2 H Red Blood Count 2.96 L Hemoglobin 8.6 L Hematocrit 26.6 L Mean Corpuscular Volume 89.9 Mean Corpuscular Hemoglobin 29.1 Mean Corpuscular Hemoglobin Concent 32.3 Red Cell Distribution Width 18.7 H Platelet Count 520 #H Mean Platelet Volume 9.5 Neutrophils % 74.9 Lymphocytes % 10.0 L Monocytes % 7.8 Eosinophils % 4.7 Basophils % 0.2 Nucleated Red Blood Cells % 0.0 Neutrophils # 15.9 H Lymphocytes # 2.1 Monocytes # 1.7 H Eosinophils # 1.0 H Basophils # 0.0 Nucleated Red Blood Cells # 0.0 Medications Medications Current Medications Acetaminophen (Tylenol Tab) 500 mg Q6H PRN PO PAIN AND OR ELEVATED TEMP; Start 07/09/16 at 20:30 Ondansetron HCl (Zofran Inj) 4 mg Q6H PRN IV NAUSEA AND/OR VOMITING; Start at 20:30 Aspirin (Aspirin) 81 mg DAILY PO Last administered on 08/12/16 09:46; Admin Dose 81 MG; Start 07/10/16 at 09:00 Benztropine Mesylate (Cogentin) 1 mg BID PO Last administered on 08/12/16 09: 47; Admin Dose 1 MG; Start 07/09/16 at 21:00 Finasteride (Proscar) 5 mg DAILY PO Last administered on 08/12/16 09:46; Admin Dose 5 MG; Start 07/10/16 at 09:00 Acetaminophen/ Hydrocodone Bitart ([place] (5/325)) 1 tab Q4 PRN PO SEVERE PAIN LEVEL 7-10 Last administered on 07/15/16 16:21; Admin Dose 1 TAB; Start at 20:30 Latanoprost (Xalatan) 1 drop QHS BOTH EYES Last administered on 08/11/16 20:57 ; Admin Dose 1 DROP; Start 07/09/16 at 21:00 Multivitamins Therapeutic (Theragran) 1 tab DAILY PO Last administered on 09:46; Admin Dose 1 TAB; Start 07/10/16 at 09:00 Olanzapine (Zyprexa) 5 mg QHS PO Last administered on 08/11/16 20:57; Admin Dose 5 MG; Start 07/09/16 at 21:00 Zinc Sulfate (Zinc Sulfate) 220 mg DAILY PO Last administered on 08/12/16 09: 45; Admin Dose 220 MG; Start 07/10/16 at 09:00 Acetaminophen (Tylenol Supp) 650 mg Q6H PRN [place] ELEVATED TEMPERATURE Last administered on 07/10/16 09:51; Admin Dose 650 MG; Start 07/10/16 at 09:30 Collagenase (Santyl) 1 applic DAILY TOP Last administered on 08/12/16 09:59; Admin Dose 1 APPLIC; Start 07/10/16 at 14:00 Bisacodyl (Dulcolax) 10 mg BID PO Last administered on 08/12/16 09:46; Admin Dose 10 MG; Start 07/13/16 at 15:00 Benazepril HCl (Lotensin) 20 mg DAILY PO Last administered on 08/12/16 09:46; Admin Dose 20 MG; Start 07/16/16 at 09:00 Zolpidem Tartrate (Ambien) 2.5 mg HS PRN PO INSOMNIA; Start 07/17/16 at 19:00 Miscellaneous Information (Pending Santyl Order For Wound Care) This patient ellis... PRN PRN XX WOUND CARE; Start 07/18/16 at 07:00 Lorazepam (Ativan) 0.5 mg Q6H PRN PO ANXEITY Last administered on 07/19/16 22: 28; Admin Dose 0.5 MG; Start 07/18/16 at 16:00 Vancomycin HCl 125 mg 125 mg Q6 PO Last administered on 08/12/16 13:13; Admin Dose 125 MG; Start 07/21/16 at 19:00 Metronidazole (Flagyl 500 Mg (Pmx)) 100 ml @ 100 mls/hr Q8 IVPB Last administered on 08/12/16 14:04; Admin Dose 100 MLS/HR; Start 07/22/16 at 16:30 Lactobacillus Acidophilus/ Rhamnosus (Culturelle) 1 cap BID PO Last administered on 08/12/16 09:46; Admin Dose 1 CAP; Start 07/23/16 at 21:00 Ascorbic Acid (Vitamin C) 500 mg DAILY PO Last administered on 08/12/16 09:46 ; Admin Dose 500 MG; Start 07/26/16 at 09:00 Metoprolol Tartrate (Lopressor) 25 mg BID PO Last administered on 08/12/16 09: 47; Admin Dose 25 MG; Start 07/28/16 at 21:00 Hydralazine HCl (Apresoline) 10 mg Q4H PRN IV ELEVATED BLOOD PRESSURE Last administered on 07/29/16 14:50; Admin Dose 10 MG; Start 07/28/16 at 20:30 Nifedipine (Procardia Xl) 60 mg QAM PO Last administered on 08/12/16 09:45; Admin Dose 60 MG; Start 08/02/16 at 09:00 Nifedipine 30 mg 30 mg QHS PO Last administered on 08/11/16 20:58; Admin Dose 30 MG; Start 08/01/16 at 21:00 Daptomycin 470 mg/ Sodium Chloride 100 ml @ 200 mls/hr Q48H IVPB Last administered on 08/10/16 22:16; Admin Dose 200 MLS/HR; Start 08/02/16 at 22:00 Ceftazidime (Fortaz 1gm/50 ml (Pmx)) 50 ml @ 100 mls/hr DAILY IVPB Last administered on 08/12/16 09:45; Admin Dose 100 MLS/HR; Start 08/12/16 at 09:00 Epoetin Zana (Epogen (Esrd)) 8,000 units TuThSa@17 SC ; Start 08/12/16 at 17:00 Furosemide (Lasix) 20 mg DAILY IV ; Start 08/13/16 at 09:00 ALE MCCONNELL Aug 12, 2016 14:31
[2016-08-12] MEDS: EPOETIN 4000 UNITS/1 ML INJ (ESRD) SC SCH (17:47)
--- NOTE | 2016-08-12 18:25 | EN ---
Date/Time of Note Date/Time of Note DATE: 08/12/16 TIME: 18:09 Event Note Surgery Surgery Event Note This is Dr. Thorpe, progress note on 08/12/16 S.: no complaint, no pain O. : alert, awake, temp. 98.3 h.r. 82 rr 20 bp 129/71, satu. %93 on ra. WBC 40654 with%74.9 Neutr. BUN 33, Creat 2.26 abdomen Soft, Sacrococcygeal wound: is healing by application of local care A. 71 yeas old with acute kidney injury ,sepsis, C.DIFF, multiple Pressure ulcers, with Black Eschar pressure necrosis of Bilateral heel and early Osteomyelitis of bilateral Calcanus, and stage 2 sacrococcygeal sore, and other medical problems. now on $ antibiotics wbc is decreasing plan: continue local care of pressure wounds as has been ordered, continue antibiotics as per ID,continue other cares as per other CONSULTANTS. LISSETH THORPE MD Aug 12, 2016 18:25
[2016-08-12 20:18] VITALS: BP 116/68; RESP 20
[2016-08-12] MEDS: OLANZAPINE 5 MG TAB PO SCH (21:54)
[2016-08-12] MEDS: LATANOPROST 0.005% 2.5 ML OPH BOTH EYES SCH (22:04)
--- NOTE | 2016-08-12 22:30 | CONS ---
Date/Time of Note Date/Time of Note DATE: 08/12/16 TIME: 22:30 Assessment/Plan Assessment/Plan Chief Complaint/Hosp Course Serial labs continue to show stable renal fn Will continue Epo for anemia & K replacement Problems: Consultation Date/Type/Reason Admit Date/Time July 09, 2016 at 12:24 Initial Consult Date 07/11/16 Type of Consultation: renal Referring Provider: RONNIE PATEL MD 24 HR Interval Summary Free Text/Dictation No significant change in clinical state Exam/Review of Systems Vital Signs Vitals Vital Signs Date Time Temp Pulse Resp B/P Pulse Ox O2 Delivery O2 Flow Rate FiO2 08/12/16 20:18 98.0 82 20 116/68 96 08/12/16 02:41 21 Intake and Output 08/11/16 08/11/16 08/12/16 15:00 23:00 07:00 Intake Total 100 ml 1160 ml 560 ml Output Total 525 ml 800 ml Balance 100 ml 635 ml -240 ml Exam Constitutional: alert, oriented, well developed Psych: nl mood/affect, no complaints Head: atraumatic, normocephalic Eyes: EOMI, PERRL, nl conjunctiva, nl lids, nl sclera ENMT: nl external ears & nose, nl lips & teeth, nl nasal mucosa & septum Neck: non-tender, supple Respiratory: clear to auscultation, normal air movement Cardiovascular: nl pulses, regular rate and rhythm Gastrointestinal: nl liver, spleen, non-tender, soft Genitourinary - Male: other (Avila cath in place) Musculoskeletal: nl extremities to inspection, nl gait and stance Extremities: normal pulses Neurological: HEELER II-XII intact, nl mental status, nl speech, nl strength Skin: nl turgor, No rash or lesions Lymph: nl lymph nodes Results WBC a bit better, Hct is stable K is a little better Result Diagram: 08/12/1645 08/12/16 0545 Results 24 hrs Laboratory Tests Test 08/12/16 05:45 White Blood Count 21.2 H Red Blood Count 2.96 L Hemoglobin 8.6 L Hematocrit 26.6 L Mean Corpuscular Volume 89.9 Mean Corpuscular Hemoglobin 29.1 Mean Corpuscular Hemoglobin Concent 32.3 Red Cell Distribution Width 18.7 H Platelet Count 520 #H Mean Platelet Volume 9.5 Neutrophils % 74.9 Lymphocytes % 10.0 L Monocytes % 7.8 Eosinophils % 4.7 Basophils % 0.2 Nucleated Red Blood Cells % 0.0 Neutrophils # 15.9 H Lymphocytes # 2.1 Monocytes # 1.7 H Eosinophils # 1.0 H Basophils # 0.0 Nucleated Red Blood Cells # 0.0 Sodium Level 146 H Potassium Level 3.1 L Chloride Level 120 H Carbon Dioxide Level 18 L Anion Gap 11 Blood Urea Nitrogen 33 H Creatinine 2.26 H Glucose Level 82 Calcium Level 6.4 L Medications Medications Current Medications Acetaminophen (Tylenol Tab) 500 mg Q6H PRN PO PAIN AND OR ELEVATED TEMP; Start 07/09/16 at 20:30 Ondansetron HCl (Zofran Inj) 4 mg Q6H PRN IV NAUSEA AND/OR VOMITING; Start at 20:30 Aspirin (Aspirin) 81 mg DAILY PO Last administered on 08/12/16 09:46; Admin Dose 81 MG; Start 07/10/16 at 09:00 Benztropine Mesylate (Cogentin) 1 mg BID PO Last administered on 08/12/16 22: 07; Admin Dose 1 MG; Start 07/09/16 at 21:00 Finasteride (Proscar) 5 mg DAILY PO Last administered on 08/12/16 09:46; Admin Dose 5 MG; Start 07/10/16 at 09:00 Acetaminophen/ Hydrocodone Bitart ([place] (5/325)) 1 tab Q4 PRN PO SEVERE PAIN LEVEL 7-10 Last administered on 07/15/16 16:21; Admin Dose 1 TAB; Start at 20:30 Latanoprost (Xalatan) 1 drop QHS BOTH EYES Last administered on 08/12/16 22:04 ; Admin Dose 1 DROP; Start 07/09/16 at 21:00 Multivitamins Therapeutic (Theragran) 1 tab DAILY PO Last administered on 09:46; Admin Dose 1 TAB; Start 07/10/16 at 09:00 Olanzapine (Zyprexa) 5 mg QHS PO Last administered on 08/12/16 21:54; Admin Dose 5 MG; Start 07/09/16 at 21:00 Zinc Sulfate (Zinc Sulfate) 220 mg DAILY PO Last administered on 08/12/16 09: 45; Admin Dose 220 MG; Start 07/10/16 at 09:00 Acetaminophen (Tylenol Supp) 650 mg Q6H PRN [place] ELEVATED TEMPERATURE Last administered on 07/10/16 09:51; Admin Dose 650 MG; Start 07/10/16 at 09:30 Collagenase (Santyl) 1 applic DAILY TOP Last administered on 08/12/16 09:59; Admin Dose 1 APPLIC; Start 07/10/16 at 14:00 Bisacodyl (Dulcolax) 10 mg BID PO Last administered on 08/12/16 21:55; Admin Dose 10 MG; Start 07/13/16 at 15:00 Benazepril HCl (Lotensin) 20 mg DAILY PO Last administered on 08/12/16 09:46; Admin Dose 20 MG; Start 07/16/16 at 09:00 Zolpidem Tartrate (Ambien) 2.5 mg HS PRN PO INSOMNIA; Start 07/17/16 at 19:00 Lorazepam (Ativan) 0.5 mg Q6H PRN PO ANXEITY Last administered on 07/19/16 22: 28; Admin Dose 0.5 MG; Start 07/18/16 at 16:00 Vancomycin HCl 125 mg 125 mg Q6 PO Last administered on 08/12/16 17:47; Admin Dose 125 MG; Start 07/21/16 at 19:00 Metronidazole (Flagyl 500 Mg (Pmx)) 100 ml @ 100 mls/hr Q8 IVPB Last administered on 08/12/16 21:56; Admin Dose 100 MLS/HR; Start 07/22/16 at 16:30 Lactobacillus Acidophilus/ Rhamnosus (Culturelle) 1 cap BID PO Last administered on 08/12/16 21:55; Admin Dose 1 CAP; Start 07/23/16 at 21:00 Ascorbic Acid (Vitamin C) 500 mg DAILY PO Last administered on 08/12/16 09:46 ; Admin Dose 500 MG; Start 07/26/16 at 09:00 Metoprolol Tartrate (Lopressor) 25 mg BID PO Last administered on 08/12/16 21: 55; Admin Dose 25 MG; Start 07/28/16 at 21:00 Hydralazine HCl (Apresoline) 10 mg Q4H PRN IV ELEVATED BLOOD PRESSURE Last administered on 07/29/16 14:50; Admin Dose 10 MG; Start 07/28/16 at 20:30 Nifedipine (Procardia Xl) 60 mg QAM PO Last administered on 08/12/16 09:45; Admin Dose 60 MG; Start 08/02/16 at 09:00 Nifedipine 30 mg 30 mg QHS PO Last administered on 08/12/16 21:55; Admin Dose 30 MG; Start 08/01/16 at 21:00 Daptomycin 470 mg/ Sodium Chloride 100 ml @ 200 mls/hr Q48H IVPB Last administered on 08/10/16 22:16; Admin Dose 200 MLS/HR; Start 08/02/16 at 22:00 Ceftazidime (Fortaz 1gm/50 ml (Pmx)) 50 ml @ 100 mls/hr DAILY IVPB Last administered on 08/12/16 09:45; Admin Dose 100 MLS/HR; Start 08/12/16 at 09:00 Epoetin Zana (Epogen (Esrd)) 8,000 units TuThSa@17 SC Last administered on 08/12 17:47; Admin Dose 8,000 UNITS; Start 08/12/16 at 17:00 Furosemide (Lasix) 20 mg DAILY IV ; Start 08/13/16 at 09:00 Potassium Chloride (Klor-Con 20) 20 meq DAILY PO ; Start 08/13/16 at 09:00 JUANA AYALA MD Aug 12, 2016 22:30
[2016-08-12] MEDS: DAPTOMYCIN 470 MG in SOD CHLORIDE 0.9% 100 ML IVPB SCH (23:23)
--- NOTE | 2016-08-12 23:43 | PN ---
Date/Time of Note Date/Time of Note DATE: 08/12/16 TIME: 23:43 Assessment/Plan Lines/Catheters IV Catheter Type (from [facility]): Peripheral IV Avila in Place (from [facility]): Yes Exam/Review of Systems Vital Signs Vitals Vital Signs Date Time Temp Pulse Resp B/P Pulse Ox O2 Delivery O2 Flow Rate FiO2 08/12/16 20:18 98.0 82 20 116/68 96 08/12/16 02:41 21 Intake and Output 08/11/16 08/11/16 08/12/16 15:00 23:00 07:00 Intake Total 100 ml 1160 ml 560 ml Output Total 525 ml 800 ml Balance 100 ml 635 ml -240 ml Results Result Diagram: 08/12/16 0545 08/12/16 0545 NIRAV GIMENEZ DPM Aug 12, 2016 23:43
[2016-08-13] MEDS: VANCOMYCIN HCL 250 MG/5ML POSYG PO SCH ×3 (05:38→18:34)
[2016-08-13] MEDS: metroNIDAZOLE 500 MG/NS (PMX) 100 ML IVPB SCH ×3 (05:39→21:48)
[2016-08-13 06:58] LABS: CREATININE 2.11 mg/dl (0.61-1.24); POTASSIUM 3.1 mmol/L (3.5-5.1)
[2016-08-13 08:12] VITALS: BP 121/67; RESP 20
[2016-08-13] MEDS: CALCIUM CARBONATE 750 MG CHEW TAB PO SCH ×3 (08:45→18:34)
[2016-08-13] MEDS: NIFEdipine (XL) 30 MG TAB PO SCH ×2 (09:00→20:42)
[2016-08-13] MEDS: POTASSIUM CHLORIDE (SR) 20 MEQ TAB PO SCH (09:59)
[2016-08-13] MEDS: COLLAGENASE 30 GM TUBE TOP SCH (09:59)
[2016-08-13] MEDS ORDERED: POTASSIUM CHLORIDE 20 MEQ POWDER FOR ORAL SOLN PO ONE (12:30)
--- NOTE | 2016-08-13 12:34 | DS ---
Date/Time of Note Date/Time of Note DATE: 08/13/16 TIME: 12:13 Discharge Summary Admission/Discharge Info Admit Date/Time July 09, 2016 at 12:24 Patient Condition: Good Hospital Course - Hypokalemia, replacement ordered. - Recurrent sepsis secondary to UTI. Dr. Langford is following an infection disease consultation. - Pseudomonas urinary tract infection. Continue antibiotics per ID. - Osteomyelitis of bilateral heels, continue daptomycin until August 25 per ID. - Bilateral heel wounds, patient is evaluated by Dr. Bell in podiatry consultation with recommendation of continue current wound care and not to proceed with debridement. - C. difficile colitis. Dr. Henderson is following an infection disease consultation. Continue oral vancomycin and intravenous metronidazole. - Colitis ulcers per colonoscopy, continue to follow-up gastroenterology recommendations. - Infected wounds on bilateral lower extremities. Continue antibiotics per ID. - Acute kidney injury on chronic kidney disease stage III with electrolyte imbalances. Dr. Clarke is following in nephrology consultation. - Acute metabolic encephalopathy, resolved. - Hypertension. Continue clonidine, Procardia and benazepril - Chronic obstructive pulmonary disease. Continue DuoNeb. - Benign prostatic hypertrophy. Continue Flomax. - Multiple decubitus ulcers present on admission. Continue local wound care, offloading. - Acute cerebrovascular accident. Continue aspirin. - Dyslipidemia. Continue Lipitor. - Dementia with behavioral disturbance. Continue Zyprexa. Home Meds Reported Medications Olanzapine* (Zyprexa*) 5 Mg Tablet, 5 MG PO QHS, #30 TAB 07/09/16 Zinc Sulfate* (Zinc Sulfate*) 220 Mg Tablet, 220 MG PO DAILY, TAB 07/09/16 Lisinopril* (Zestril*) 40 Mg Tablet, 40 MG PO DAILY, #30 TAB HOLD FOR SBP<110 07/09/16 Latanoprost (Xalatan) 2.5 Ml Drops, 1 DROP BOTH EYES QHS, #1 BOTTLE 07/09/16 Ascorbic Acid* (Vitamin C*) 500 Mg Capsule.sa, 500 MG PO DAILY, CAP 07/09/16 Acetaminophen* (Acetaminophen*) 650 Mg Tablet, 650 MG PO Q4 Y for PAIN AND OR ELEVATED TEMP, #30 TAB 07/09/16 Trazodone Hcl* (Trazodone Hcl*) 100 Mg Tablet, 100 MG PO QHS, #30 TAB 07/09/16 Pantoprazole* (Protonix*) 40 Mg Tablet.dr, 40 MG PO AC BREAKFAST, TAB 07/09/16 Finasteride* (Proscar*) 5 Mg Tablet, 5 MG PO DAILY, TAB 07/09/16 Hydrocodone/Acetaminophen ([place] 5-325 Tablet) 1 Each Tablet, 1 EACH PO Q4 Y for SEVERE PAIN LEVEL 7-10, TAB 07/09/16 Multivitamins* (Theragran*) 1 Tab Tab, 1 TAB PO DAILY, TAB 07/09/16 Atorvastatin* (Atorvastatin*) 40 Mg Tablet, 40 MG PO QHS, #30 TAB 07/09/16 Furosemide* (Furosemide*) 20 Mg Tablet, 20 MG PO DAILY, #60 TAB 07/09/16 Ipratropium-Albuterol (Ipratropium-Albuterol) 0.5-3 Mg/3 Ml Ampul.neb, 3 ML INHALATION Q6, #30 VIAL 07/09/16 Clonidine Hcl* (Clonidine Hcl*) 0.1 Mg Tab, 0.1 MG PO Q6 Y for ELEVATED BLOOD PRESSURE, TAB 07/09/16 Benztropine Mesylate* (Benztropine Mesylate*) 1 Mg Tablet, 1 MG PO BID, TAB 07/09/16 Aspirin* (Aspirin* Chew) 81 Mg Tab.chew, 81 MG PO DAILY, TAB.CHEW 07/09/16 Arginine/Ascorbate Sod/Julio AC (Arginaid Powder) 1 Each Powd.pack, 1 EACH PO BID 07/09/16 Zolpidem Tartrate* (Ambien*) 10 Mg Tablet, 10 MG PO QHS Y for INSOMNIA, TAB 07/09/16 Primary Care Provider Ren Rnee MD Pending Labs Laboratory Tests Test 08/13/16 05:45 08/13/16 09:51 Sodium Level 150mmol/L (135-144) Potassium Level 3.1mmol/L (3.5-5.1) Chloride Level 124mmol/L (97-110) Carbon Dioxide Level 18mmol/L (21-31) Anion Gap 11 (8-16) Blood Urea Nitrogen 31mg/dl (7-20) Creatinine 2.11mg/dl (0.61-1.24) Glucose Level 81mg/dl (70-220) Calcium Level 7.0mg/dl (8.4-10.2) Lab Scanned Report REFERENCE [id number] ALE MCCONNELL Aug 13, 2016 12:24
--- NOTE | 2016-08-13 12:35 | PN ---
Date/Time of Note Date/Time of Note DATE: 08/13/16 TIME: 12:34 Assessment/Plan VTE Prophylaxis VTE Prophylaxis Intervention: SCD's Lines/Catheters IV Catheter Type (from Nrs): Saline Lock Urinary Cath still in place: Yes Reason Cath still needed: urinary retention Assessment/Plan Chief Complaint/Hosp Course Patient ith increased hyponatremia sodium is 150, persistent hypokalemia, no diarrhea per nursing staff, hold discharge to [place], patient is awake alert denies any pain. Assessment and plan - Hypernatremia, start IV fluids with D5 at 100 cc/h, BMP tomorrow. - Hypokalemia, replacement ordered. - Recurrent sepsis secondary to UTI. Dr. Langford is following an infection disease consultation. - Pseudomonas urinary tract infection. Continue antibiotics per ID. - Osteomyelitis of bilateral heels, continue daptomycin until August 25 per ID. - Bilateral heel wounds, patient is evaluated by Dr. Bell in podiatry consultation with recommendation of continue current wound care and not to proceed with debridement. - C. difficile colitis. Dr. Beatriz cardenas is following an infection disease consultation. Continue oral vancomycin and intravenous metronidazole. - Colitis ulcers per colonoscopy, continue to follow-up gastroenterology recommendations. - Infected wounds on bilateral lower extremities. Continue antibiotics per ID. - Acute kidney injury on chronic kidney disease stage III with electrolyte imbalances. Dr. Clarke is following in nephrology consultation. - Acute metabolic encephalopathy, resolved. - Hypertension. Continue clonidine, Procardia and benazepril - Chronic obstructive pulmonary disease. Continue DuoNeb. - Benign prostatic hypertrophy. Continue Flomax. - Multiple decubitus ulcers present on admission. Continue local wound care, offloading. - Acute cerebrovascular accident. Continue aspirin. - Dyslipidemia. Continue Lipitor. - Dementia with behavioral disturbance. Continue Zyprexa. Problems: Exam/Review of Systems Vital Signs Vitals Vital Signs Date Time Temp Pulse Resp B/P Pulse Ox O2 Delivery O2 Flow Rate FiO2 08/13/16 08:12 98.0 86 20 121/67 93 08/12/16 02:41 21 Intake and Output 08/12/16 08/12/16 08/13/16 15:00 23:00 07:00 Intake Total 100 ml 1060 ml 200 ml Output Total 500 ml Balance 100 ml 560 ml 200 ml Exam Constitutional: alert, frail Psych: confusion Head: normocephalic Neck: supple Respiratory: normal air movement Cardiovascular: nl pulses Gastrointestinal: non-tender, soft Genitourinary - Male: other (Avila catheter) Extremities: edema Skin: other (Multiple wounds) Results Result Diagram: 08/12/16 0545 08/13/16 0545 Results 24 hrs Laboratory Tests Test 08/13/16 05:45 08/13/16 09:51 Sodium Level 150 H Potassium Level 3.1 L Chloride Level 124 H Carbon Dioxide Level 18 L Anion Gap 11 Blood Urea Nitrogen 31 H Creatinine 2.11 H Glucose Level 81 Calcium Level 7.0 L Lab Scanned Report REFERENCE LAB Medications Medications Current Medications Acetaminophen (Tylenol Tab) 500 mg Q6H PRN PO PAIN AND OR ELEVATED TEMP; Start 07/09/16 at 20:30 Ondansetron HCl (Zofran Inj) 4 mg Q6H PRN IV NAUSEA AND/OR VOMITING; Start at 20:30 Aspirin (Aspirin) 81 mg DAILY PO Last administered on 08/12/16 09:46; Admin Dose 81 MG; Start 07/10/16 at 09:00 Benztropine Mesylate (Cogentin) 1 mg BID PO Last administered on 08/12/16 22: 07; Admin Dose 1 MG; Start 07/09/16 at 21:00 Finasteride (Proscar) 5 mg DAILY PO Last administered on 08/12/16 09:46; Admin Dose 5 MG; Start 07/10/16 at 09:00 Acetaminophen/ Hydrocodone Bitart ([place] (5/325)) 1 tab Q4 PRN PO SEVERE PAIN LEVEL 7-10 Last administered on 07/15/16 16:21; Admin Dose 1 TAB; Start at 20:30 Latanoprost (Xalatan) 1 drop QHS BOTH EYES Last administered on 08/12/16 22:04 ; Admin Dose 1 DROP; Start 07/09/16 at 21:00 Multivitamins Therapeutic (Theragran) 1 tab DAILY PO Last administered on 09:46; Admin Dose 1 TAB; Start 07/10/16 at 09:00 Olanzapine (Zyprexa) 5 mg QHS PO Last administered on 08/12/16 21:54; Admin Dose 5 MG; Start 07/09/16 at 21:00 Zinc Sulfate (Zinc Sulfate) 220 mg DAILY PO Last administered on 08/12/16 09: 45; Admin Dose 220 MG; Start 07/10/16 at 09:00 Acetaminophen (Tylenol Supp) 650 mg Q6H PRN [place] ELEVATED TEMPERATURE Last administered on 07/10/16 09:51; Admin Dose 650 MG; Start 07/10/16 at 09:30 Collagenase (Santyl) 1 applic DAILY TOP Last administered on 08/12/16 09:59; Admin Dose 1 APPLIC; Start 07/10/16 at 14:00 Bisacodyl (Dulcolax) 10 mg BID PO Last administered on 08/12/16 21:55; Admin Dose 10 MG; Start 07/13/16 at 15:00 Benazepril HCl (Lotensin) 20 mg DAILY PO Last administered on 08/12/16 09:46; Admin Dose 20 MG; Start 07/16/16 at 09:00 Zolpidem Tartrate (Ambien) 2.5 mg HS PRN PO INSOMNIA; Start 07/17/16 at 19:00 Lorazepam (Ativan) 0.5 mg Q6H PRN PO ANXEITY Last administered on 07/19/16 22: 28; Admin Dose 0.5 MG; Start 07/18/16 at 16:00 Vancomycin HCl 125 mg 125 mg Q6 PO Last administered on 08/13/16 05:38; Admin Dose 125 MG; Start 07/21/16 at 19:00 Metronidazole (Flagyl 500 Mg (Pmx)) 100 ml @ 100 mls/hr Q8 IVPB Last administered on 08/13/16 05:39; Admin Dose 100 MLS/HR; Start 07/22/16 at 16:30 Lactobacillus Acidophilus/ Rhamnosus (Culturelle) 1 cap BID PO Last administered on 08/12/16 21:55; Admin Dose 1 CAP; Start 07/23/16 at 21:00 Ascorbic Acid (Vitamin C) 500 mg DAILY PO Last administered on 08/12/16 09:46 ; Admin Dose 500 MG; Start 07/26/16 at 09:00 Metoprolol Tartrate (Lopressor) 25 mg BID PO Last administered on 08/12/16 21: 55; Admin Dose 25 MG; Start 07/28/16 at 21:00 Hydralazine HCl (Apresoline) 10 mg Q4H PRN IV ELEVATED BLOOD PRESSURE Last administered on 07/29/16 14:50; Admin Dose 10 MG; Start 07/28/16 at 20:30 Nifedipine (Procardia Xl) 60 mg QAM PO Last administered on 08/12/16 09:45; Admin Dose 60 MG; Start 08/02/16 at 09:00 Nifedipine 30 mg 30 mg QHS PO Last administered on 08/12/16 21:55; Admin Dose 30 MG; Start 08/01/16 at 21:00 Daptomycin 470 mg/ Sodium Chloride 100 ml @ 200 mls/hr Q48H IVPB Last administered on 08/12/16 23:23; Admin Dose 200 MLS/HR; Start 08/02/16 at 22:00 Ceftazidime (Fortaz 1gm/50 ml (Pmx)) 50 ml @ 100 mls/hr DAILY IVPB Last administered on 08/12/16 09:45; Admin Dose 100 MLS/HR; Start 08/12/16 at 09:00 Epoetin Zana (Epogen (Esrd)) 8,000 units TuThSa@17 SC Last administered on 08/12 17:47; Admin Dose 8,000 UNITS; Start 08/12/16 at 17:00 Furosemide (Lasix) 20 mg DAILY IV ; Start 08/13/16 at 09:00 Potassium Chloride (Klor-Con 20) 20 meq DAILY PO ; Start 08/13/16 at 09:00 ALE MCCONNELL Aug 13, 2016 12:35
[2016-08-13] MEDS: FUROSEMIDE 20 MG INJ IV SCH (13:12)
[2016-08-13] MEDS: PANTOPRAZOLE (EC) 40 MG TAB PO SCH (13:12)
[2016-08-13] MEDS: ASPIRIN 81 MG TAB PO SCH (13:13)
[2016-08-13] MEDS: MULTIVITAMINS THERAPEUTIC TAB PO SCH (13:13)
[2016-08-13] MEDS: BISACODYL (EC) 5 MG TAB PO SCH ×2 (13:13→20:41)
[2016-08-13] MEDS: BENZTROPINE 1 MG TAB PO SCH ×2 (13:13→20:41)
[2016-08-13] MEDS: FINASTERIDE 5 MG TAB PO SCH (13:14)
[2016-08-13] MEDS: ZINC SULFATE 220 MG CAP PO SCH (13:14)
[2016-08-13] MEDS: ASCORBIC ACID 500 MG TAB PO SCH (13:14)
[2016-08-13] MEDS: LACTOBACILLUS RHAMNOSUS CAP PO SCH ×2 (13:14→20:42)
[2016-08-13] MEDS: BENAZEPRIL 20 MG TAB PO SCH (13:15)
[2016-08-13] MEDS: CEFTAZIDIME 1GM/50 ML (PMX) 50 ML IVPB SCH (13:42)
--- NOTE | 2016-08-13 14:06 | CONS ---
Date/Time of Note Date/Time of Note DATE: 08/13/16 TIME: 14:01 Assessment/Plan Assessment/Plan Chief Complaint/Hosp Course IMPRESSION: 1. Preoperative evaluation prior to debridement of heel decubitus ulcers.- negative trop x 3/NL EF by echo this admit with no sig contraindicated valve lesions. Ok to proceed to OR on BB continue pre-post op without further non- invasive eval at moderate risk if surgical intervention is required 2. Hypertension-now well controlled 3. Abnormal electrocardiogram with anteroseptal Q's and normal ejection fraction by echo this admit.-neg trop x 3 this admit 4. Clostridium difficile Colitis. 5. Renal failure. 6. Encephalopathy. 7. Chronic obstructive pulmonary disease. 8. History of cerebrovascular accident. 9. Dyslipidemia. 10. Dementia. 11. Anemia. 12. Leukocytosis. 12. Coagulopathy. 14. CHF-diastolic acute on chronic Recc: -Continue asa -Continue abx's and f/u cx data -local wound care/conservative management per surgical consults -Continue current BB/ACEI/procardia XL with well controlled BP -Follow volume status closely and continue gentle daily lasix diuresis Problems: Consultation Date/Type/Reason Admit Date/Time July 09, 2016 at 12:24 Initial Consult Date 07/26/16 Type of Consultation: cardiology Reason for Consultation Pre-op/HTN Referring Provider: RONNIE PATEL MD Exam/Review of Systems Vital Signs Vitals Vital Signs Date Time Temp Pulse Resp B/P Pulse Ox O2 Delivery O2 Flow Rate FiO2 08/13/16 08:12 98.0 86 20 121/67 93 08/12/16 02:41 21 Intake and Output 08/12/16 08/12/16 08/13/16 14:59 22:59 06:59 Intake Total 100 ml 960 ml 300 ml Output Total 500 ml Balance 100 ml 460 ml 300 ml Exam Review of Systems: CONSTITUTIONAL: No fevers, chills. PULMONARY: No sob CARDIOVASCULAR: No chest pain/palpitations GASTROINTESTINAL: No nausea/vomiting. GENITOURINARY: No hematuria/dysuria. MUSCULOSKELETAL: No myagias/arthalgias. PSYCHIATRIC: The patient denies depression. NEUROLOGIC: lethargic Constitutional: alert Psych: no complaints Head: normocephalic ENMT: mucosa pink and moist Neck: jvd (9 cm water), supple Respiratory: diminished breath sounds (at bases/B) Cardiovascular: regular rate and rhythm Gastrointestinal: non-tender, soft Musculoskeletal: muscle tone (normal) Extremities: edema (none) Neurological: other (No focal deficits) Results Result Diagram: 08/12/16 0545 08/13/16 0545 Results 24 hrs Laboratory Tests Test 08/13/16 05:45 08/13/16 09:51 Sodium Level 150 H Potassium Level 3.1 L Chloride Level 124 H Carbon Dioxide Level 18 L Anion Gap 11 Blood Urea Nitrogen 31 H Creatinine 2.11 H Glucose Level 81 Calcium Level 7.0 L Lab Scanned Report REFERENCE LAB Medications Medications Current Medications Acetaminophen (Tylenol Tab) 500 mg Q6H PRN PO PAIN AND OR ELEVATED TEMP; Start 07/09/16 at 20:30 Ondansetron HCl (Zofran Inj) 4 mg Q6H PRN IV NAUSEA AND/OR VOMITING; Start at 20:30 Aspirin (Aspirin) 81 mg DAILY PO Last administered on 08/13/16 13:13; Admin Dose 81 MG; Start 07/10/16 at 09:00 Benztropine Mesylate (Cogentin) 1 mg BID PO Last administered on 08/13/16 13: 13; Admin Dose 1 MG; Start 07/09/16 at 21:00 Finasteride (Proscar) 5 mg DAILY PO Last administered on 08/13/16 13:14; Admin Dose 5 MG; Start 07/10/16 at 09:00 Acetaminophen/ Hydrocodone Bitart ([place] (5/325)) 1 tab Q4 PRN PO SEVERE PAIN LEVEL 7-10 Last administered on 07/15/16 16:21; Admin Dose 1 TAB; Start at 20:30 Latanoprost (Xalatan) 1 drop QHS BOTH EYES Last administered on 08/12/16 22:04 ; Admin Dose 1 DROP; Start 07/09/16 at 21:00 Multivitamins Therapeutic (Theragran) 1 tab DAILY PO Last administered on 13:13; Admin Dose 1 TAB; Start 07/10/16 at 09:00 Olanzapine (Zyprexa) 5 mg QHS PO Last administered on 08/12/16 21:54; Admin Dose 5 MG; Start 07/09/16 at 21:00 Zinc Sulfate (Zinc Sulfate) 220 mg DAILY PO Last administered on 08/13/16 13: 14; Admin Dose 220 MG; Start 07/10/16 at 09:00 Acetaminophen (Tylenol Supp) 650 mg Q6H PRN [place] ELEVATED TEMPERATURE Last administered on 07/10/16 09:51; Admin Dose 650 MG; Start 07/10/16 at 09:30 Collagenase (Santyl) 1 applic DAILY TOP Last administered on 08/13/16 09:59; Admin Dose 1 APPLIC; Start 07/10/16 at 14:00 Bisacodyl (Dulcolax) 10 mg BID PO Last administered on 08/13/16 13:13; Admin Dose 10 MG; Start 07/13/16 at 15:00 Benazepril HCl (Lotensin) 20 mg DAILY PO Last administered on 08/13/16 13:15; Admin Dose 20 MG; Start 07/16/16 at 09:00 Zolpidem Tartrate (Ambien) 2.5 mg HS PRN PO INSOMNIA; Start 07/17/16 at 19:00 Lorazepam (Ativan) 0.5 mg Q6H PRN PO ANXEITY Last administered on 07/19/16 22: 28; Admin Dose 0.5 MG; Start 07/18/16 at 16:00 Vancomycin HCl 125 mg 125 mg Q6 PO Last administered on 08/13/16 13:45; Admin Dose 125 MG; Start 07/21/16 at 19:00 Metronidazole (Flagyl 500 Mg (Pmx)) 100 ml @ 100 mls/hr Q8 IVPB Last administered on 08/13/16 05:39; Admin Dose 100 MLS/HR; Start 07/22/16 at 16:30 Lactobacillus Acidophilus/ Rhamnosus (Culturelle) 1 cap BID PO Last administered on 08/13/16 13:14; Admin Dose 1 CAP; Start 07/23/16 at 21:00 Ascorbic Acid (Vitamin C) 500 mg DAILY PO Last administered on 08/13/16 13:14 ; Admin Dose 500 MG; Start 07/26/16 at 09:00 Metoprolol Tartrate (Lopressor) 25 mg BID PO Last administered on 08/12/16 21: 55; Admin Dose 25 MG; Start 07/28/16 at 21:00 Hydralazine HCl (Apresoline) 10 mg Q4H PRN IV ELEVATED BLOOD PRESSURE Last administered on 07/29/16 14:50; Admin Dose 10 MG; Start 07/28/16 at 20:30 Nifedipine (Procardia Xl) 60 mg QAM PO Last administered on 08/12/16 09:45; Admin Dose 60 MG; Start 08/02/16 at 09:00 Nifedipine 30 mg 30 mg QHS PO Last administered on 08/12/16 21:55; Admin Dose 30 MG; Start 08/01/16 at 21:00 Daptomycin 470 mg/ Sodium Chloride 100 ml @ 200 mls/hr Q48H IVPB Last administered on 08/12/16 23:23; Admin Dose 200 MLS/HR; Start 08/02/16 at 22:00 Ceftazidime (Fortaz 1gm/50 ml (Pmx)) 50 ml @ 100 mls/hr DAILY IVPB Last administered on 08/13/16 13:42; Admin Dose 100 MLS/HR; Start 08/12/16 at 09:00 Epoetin Zana (Epogen (Esrd)) 8,000 units TuThSa@17 SC Last administered on 08/12 17:47; Admin Dose 8,000 UNITS; Start 08/12/16 at 17:00 Furosemide (Lasix) 20 mg DAILY IV Last administered on 08/13/16 13:12; Admin Dose 20 MG; Start 08/13/16 at 09:00 Potassium Chloride 20 meq 20 meq DAILY PO ; Start 08/13/16 at 09:00 Dextrose (D5W) 1,000 ml @ 100 mls/hr Q10H IV ; Start 08/13/16 at 13:30 PACHECO COHEN Aug 13, 2016 14:06
--- NOTE | 2016-08-13 15:33 | CONS ---
Date/Time of Note Date/Time of Note DATE: 08/13/16 TIME: 15:31 Assessment/Plan Assessment/Plan Additional Assessment/Plan - possible recurrent sepsis due to UTI - UTI due to pseudomonas - sepsis due to wound infection and OM of b/l heel and C diff colitis - infection of wounds of b/l heel due to MRSA, enterococcus spp and corynebacter jeikeium (grp JK); MRI showed early osteomyelitis at b/l posterior calcaneal margin. - unstageable decub of b/l heel - C diff colitis - resolving - s/p possible HCAP, Pt completed empiric cefepime (07/10/2016-07/19/2016); CXR on 07/20/2016 showed improvement. 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 Improved after its discontinuation recommendations: - continue renally dosed ceftazidime (08/11/2016-); s/p meropenem - MRI from 08/01/2016 showed early osteomyelitis at b/l posterior calcaneal margin. We recommend total 6 weeks of IV antibiotic. - continue renally dosed IV daptomycin through 08/25/2016 (Pt received IV vancomycin, then linezolid before). CK=27 on 08/03/2016. Will repeat weekly - if Pt gets transferred to SNF, please order weekly CBC, BMP, CK while Pt's on IV antibiotics - continue PO vancomycin (07/15/2016-) and IV Flagyl (07/22/2016-) while Pt's on IV antibiotic Management d/w DANIEL Jenkins and Dr. Henderson Consultation Date/Type/Reason Admit Date/Time July 09, 2016 at 12:24 Initial Consult Date 07/11/16 Type of Consultation: cardiology Referring Provider: RONNIE PATEL MD Exam/Review of Systems Vital Signs Vitals Vital Signs Date Time Temp Pulse Resp B/P Pulse Ox O2 Delivery O2 Flow Rate FiO2 08/13/16 08:12 98.0 86 20 121/67 93 08/12/16 02:41 21 Intake and Output 08/12/16 08/12/16 08/13/16 15:00 23:00 07:00 Intake Total 100 ml 1060 ml 200 ml Output Total 500 ml Balance 100 ml 560 ml 200 ml Exam Constitutional: alert, well developed Respiratory: clear to auscultation, normal air movement Cardiovascular: nl pulses, regular rate and rhythm Gastrointestinal: non-tender, soft Neurological: nl speech, other (demented) Skin: other (natalie heels - DDI. see nurses notes) Results Result Diagram: 08/12/16 0545 08/13/16 0545 Results 24 hrs Laboratory Tests Test 08/13/16 05:45 08/13/16 09:51 Sodium Level 150 H Potassium Level 3.1 L Chloride Level 124 H Carbon Dioxide Level 18 L Anion Gap 11 Blood Urea Nitrogen 31 H Creatinine 2.11 H Glucose Level 81 Calcium Level 7.0 L Lab Scanned Report REFERENCE LAB Medications Medications Current Medications Acetaminophen (Tylenol Tab) 500 mg Q6H PRN PO PAIN AND OR ELEVATED TEMP; Start 07/09/16 at 20:30 Ondansetron HCl (Zofran Inj) 4 mg Q6H PRN IV NAUSEA AND/OR VOMITING; Start at 20:30 Aspirin (Aspirin) 81 mg DAILY PO Last administered on 08/13/16 13:13; Admin Dose 81 MG; Start 07/10/16 at 09:00 Benztropine Mesylate (Cogentin) 1 mg BID PO Last administered on 08/13/16 13: 13; Admin Dose 1 MG; Start 07/09/16 at 21:00 Finasteride (Proscar) 5 mg DAILY PO Last administered on 08/13/16 13:14; Admin Dose 5 MG; Start 07/10/16 at 09:00 Acetaminophen/ Hydrocodone Bitart ([place] (5/325)) 1 tab Q4 PRN PO SEVERE PAIN LEVEL 7-10 Last administered on 07/15/16 16:21; Admin Dose 1 TAB; Start at 20:30 Latanoprost (Xalatan) 1 drop QHS BOTH EYES Last administered on 08/12/16 22:04 ; Admin Dose 1 DROP; Start 07/09/16 at 21:00 Multivitamins Therapeutic (Theragran) 1 tab DAILY PO Last administered on 13:13; Admin Dose 1 TAB; Start 07/10/16 at 09:00 Olanzapine (Zyprexa) 5 mg QHS PO Last administered on 08/12/16 21:54; Admin Dose 5 MG; Start 07/09/16 at 21:00 Zinc Sulfate (Zinc Sulfate) 220 mg DAILY PO Last administered on 08/13/16 13: 14; Admin Dose 220 MG; Start 07/10/16 at 09:00 Acetaminophen (Tylenol Supp) [address] ELEVATED TEMPERATURE Last administered on 07/10/16 09:51; Admin Dose 650 MG; Start 07/10/16 at 09:30 Collagenase (Santyl) 1 applic DAILY TOP Last administered on 08/13/16 09:59; Admin Dose 1 APPLIC; Start 07/10/16 at 14:00 Bisacodyl (Dulcolax) 10 mg BID PO Last administered on 08/13/16 13:13; Admin Dose 10 MG; Start 07/13/16 at 15:00 Benazepril HCl (Lotensin) 20 mg DAILY PO Last administered on 08/13/16 13:15; Admin Dose 20 MG; Start 07/16/16 at 09:00 Zolpidem Tartrate (Ambien) 2.5 mg HS PRN PO INSOMNIA; Start 07/17/16 at 19:00 Lorazepam (Ativan) 0.5 mg Q6H PRN PO ANXEITY Last administered on 07/19/16 22: 28; Admin Dose 0.5 MG; Start 07/18/16 at 16:00 Vancomycin HCl 125 mg 125 mg Q6 PO Last administered on 08/13/16 13:45; Admin Dose 125 MG; Start 07/21/16 at 19:00 Metronidazole (Flagyl 500 Mg (Pmx)) 100 ml @ 100 mls/hr Q8 IVPB Last administered on 08/13/16 05:39; Admin Dose 100 MLS/HR; Start 07/22/16 at 16:30 Lactobacillus Acidophilus/ Rhamnosus (Culturelle) 1 cap BID PO Last administered on 08/13/16 13:14; Admin Dose 1 CAP; Start 07/23/16 at 21:00 Ascorbic Acid (Vitamin C) 500 mg DAILY PO Last administered on 08/13/16 13:14 ; Admin Dose 500 MG; Start 07/26/16 at 09:00 Metoprolol Tartrate (Lopressor) 25 mg BID PO Last administered on 08/12/16 21: 55; Admin Dose 25 MG; Start 07/28/16 at 21:00 Hydralazine HCl (Apresoline) 10 mg Q4H PRN IV ELEVATED BLOOD PRESSURE Last administered on 07/29/16 14:50; Admin Dose 10 MG; Start 07/28/16 at 20:30 Nifedipine (Procardia Xl) 60 mg QAM PO Last administered on 08/12/16 09:45; Admin Dose 60 MG; Start 08/02/16 at 09:00 Nifedipine 30 mg 30 mg QHS PO Last administered on 08/12/16 21:55; Admin Dose 30 MG; Start 08/01/16 at 21:00 Daptomycin 470 mg/ Sodium Chloride 100 ml @ 200 mls/hr Q48H IVPB Last administered on 08/12/16 23:23; Admin Dose 200 MLS/HR; Start 08/02/16 at 22:00 Ceftazidime (Fortaz 1gm/50 ml (Pmx)) 50 ml @ 100 mls/hr DAILY IVPB Last administered on 08/13/16 13:42; Admin Dose 100 MLS/HR; Start 08/12/16 at 09:00 Epoetin Zana (Epogen (Esrd)) 8,000 units TuThSa@17 SC Last administered on 08/12 17:47; Admin Dose 8,000 UNITS; Start 08/12/16 at 17:00 Furosemide (Lasix) 20 mg DAILY IV Last administered on 08/13/16 13:12; Admin Dose 20 MG; Start 08/13/16 at 09:00 Potassium Chloride 20 meq 20 meq DAILY PO ; Start 08/13/16 at 09:00 Dextrose (D5W) 1,000 ml @ 100 mls/hr Q10H IV ; Start 08/13/16 at 13:30 ISAEL CRYSTAL Aug 13, 2016 15:33
[2016-08-13] MEDS: DEXTROSE 5% 1,000 ML IV SCH ×2 (15:46→23:30)
[2016-08-13] MEDS: METOPROLOL 25 MG TAB PO SCH ×2 (15:48→20:42)
--- NOTE | 2016-08-13 17:04 | CONS ---
Date/Time of Note Date/Time of Note DATE: 08/13/16 TIME: 17:03 Assessment/Plan Assessment/Plan Additional Assessment/Plan 1. Acute kidney injury, Pre- Renal R/o ATN, [place] no signs of obstructive Uropathy, Hx of BPH.- Non Oliguric, Resolvd 2. Hypertension. Normotensive at this time. 3. Chronic obstructive pulmonary disease. 4. Benign prostatic hypertrophy. 5. Loculated pleural effusion. 6. Multiple decubiti 7. Cerebrovascular accident. 8. Dyslipidemia. 9. Dementia with behavioral disturbance. 10. Metabolic Acidosis-stable 11. Hypernatremia 12. CKD Stage IV 13. Hypokalemia Renal function is stable and improved Pt is non oliguric, Increase free H20 intake, Supplement K Gentle D5W with KCL Repeat Chem in am. Consultation Date/Type/Reason Admit Date/Time July 09, 2016 at 12:24 Type of Consultation: Renal Referring Provider: RONNIE PATEL MD 24 HR Interval Summary Constitutional: No requiring O2 Exam/Review of Systems Vital Signs Vitals Vital Signs Date Time Temp Pulse Resp B/P Pulse Ox O2 Delivery O2 Flow Rate FiO2 08/13/16 08:12 98.0 86 20 121/67 93 08/12/16 02:41 21 Intake and Output 08/12/16 08/12/16 08/13/16 15:00 23:00 07:00 Intake Total 100 ml 1060 ml 200 ml Output Total 500 ml Balance 100 ml 560 ml 200 ml Exam Constitutional: No distress ENMT: mucosa pink and moist Respiratory: No diminished breath sounds, No labored breathing Cardiovascular: edema Gastrointestinal: non-tender, soft Neurological: No lethargic Skin: No diaphoresis Results Result Diagram: 08/12/16 0545 08/13/16 0545 Results 24 hrs Laboratory Tests Test 08/13/16 05:45 08/13/16 09:51 Sodium Level 150 H Potassium Level 3.1 L Chloride Level 124 H Carbon Dioxide Level 18 L Anion Gap 11 Blood Urea Nitrogen 31 H Creatinine 2.11 H Glucose Level 81 Calcium Level 7.0 L Lab Scanned Report REFERENCE LAB Medications Medications Current Medications Acetaminophen (Tylenol Tab) 500 mg Q6H PRN PO PAIN AND OR ELEVATED TEMP; Start 07/09/16 at 20:30 Ondansetron HCl (Zofran Inj) 4 mg Q6H PRN IV NAUSEA AND/OR VOMITING; Start at 20:30 Aspirin (Aspirin) 81 mg DAILY PO Last administered on 08/13/16 13:13; Admin Dose 81 MG; Start 07/10/16 at 09:00 Benztropine Mesylate (Cogentin) 1 mg BID PO Last administered on 08/13/16 13: 13; Admin Dose 1 MG; Start 07/09/16 at 21:00 Finasteride (Proscar) 5 mg DAILY PO Last administered on 08/13/16 13:14; Admin Dose 5 MG; Start 07/10/16 at 09:00 Acetaminophen/ Hydrocodone Bitart ([place] (5/325)) 1 tab Q4 PRN PO SEVERE PAIN LEVEL 7-10 Last administered on 07/15/16 16:21; Admin Dose 1 TAB; Start at 20:30 Latanoprost (Xalatan) 1 drop QHS BOTH EYES Last administered on 08/12/16 22:04 ; Admin Dose 1 DROP; Start 07/09/16 at 21:00 Multivitamins Therapeutic (Theragran) 1 tab DAILY PO Last administered on 13:13; Admin Dose 1 TAB; Start 07/10/16 at 09:00 Olanzapine (Zyprexa) 5 mg QHS PO Last administered on 08/12/16 21:54; Admin Dose 5 MG; Start 07/09/16 at 21:00 Zinc Sulfate (Zinc Sulfate) 220 mg DAILY PO Last administered on 08/13/16 13: 14; Admin Dose 220 MG; Start 07/10/16 at 09:00 Acetaminophen (Tylenol Supp) 650 mg Q6H PRN [place] ELEVATED TEMPERATURE Last administered on 07/10/16 09:51; Admin Dose 650 MG; Start 07/10/16 at 09:30 Collagenase (Santyl) 1 applic DAILY TOP Last administered on 08/13/16 09:59; Admin Dose 1 APPLIC; Start 07/10/16 at 14:00 Bisacodyl (Dulcolax) 10 mg BID PO Last administered on 08/13/16 13:13; Admin Dose 10 MG; Start 07/13/16 at 15:00 Benazepril HCl (Lotensin) 20 mg DAILY PO Last administered on 08/13/16 13:15; Admin Dose 20 MG; Start 07/16/16 at 09:00 Zolpidem Tartrate (Ambien) 2.5 mg HS PRN PO INSOMNIA; Start 07/17/16 at 19:00 Lorazepam (Ativan) 0.5 mg Q6H PRN PO ANXEITY Last administered on 07/19/16 22: 28; Admin Dose 0.5 MG; Start 07/18/16 at 16:00 Vancomycin HCl 125 mg 125 mg Q6 PO Last administered on 08/13/16 13:45; Admin Dose 125 MG; Start 07/21/16 at 19:00 Metronidazole (Flagyl 500 Mg (Pmx)) 100 ml @ 100 mls/hr Q8 IVPB Last administered on 08/13/16 15:46; Admin Dose 100 MLS/HR; Start 07/22/16 at 16:30 Lactobacillus Acidophilus/ Rhamnosus (Culturelle) 1 cap BID PO Last administered on 08/13/16 13:14; Admin Dose 1 CAP; Start 07/23/16 at 21:00 Ascorbic Acid (Vitamin C) 500 mg DAILY PO Last administered on 08/13/16 13:14 ; Admin Dose 500 MG; Start 07/26/16 at 09:00 Metoprolol Tartrate (Lopressor) 25 mg BID PO Last administered on 08/13/16 15: 48; Admin Dose 25 MG; Start 07/28/16 at 21:00 Hydralazine HCl (Apresoline) 10 mg Q4H PRN IV ELEVATED BLOOD PRESSURE Last administered on 07/29/16 14:50; Admin Dose 10 MG; Start 07/28/16 at 20:30 Nifedipine (Procardia Xl) 60 mg QAM PO Last administered on 08/12/16 09:45; Admin Dose 60 MG; Start 08/02/16 at 09:00 Nifedipine 30 mg 30 mg QHS PO Last administered on 08/12/16 21:55; Admin Dose 30 MG; Start 08/01/16 at 21:00 Daptomycin 470 mg/ Sodium Chloride 100 ml @ 200 mls/hr Q48H IVPB Last administered on 08/12/16 23:23; Admin Dose 200 MLS/HR; Start 08/02/16 at 22:00 Ceftazidime (Fortaz 1gm/50 ml (Pmx)) 50 ml @ 100 mls/hr DAILY IVPB Last administered on 08/13/16 13:42; Admin Dose 100 MLS/HR; Start 08/12/16 at 09:00 Epoetin Zana (Epogen (Esrd)) 8,000 units TuThSa@17 SC Last administered on 08/12 17:47; Admin Dose 8,000 UNITS; Start 08/12/16 at 17:00 Furosemide (Lasix) 20 mg DAILY IV Last administered on 08/13/16 13:12; Admin Dose 20 MG; Start 08/13/16 at 09:00 Potassium Chloride 20 meq 20 meq DAILY PO ; Start 08/13/16 at 09:00 Dextrose (D5W) 1,000 ml @ 100 mls/hr Q10H IV Last administered on 08/13/16 15 :46; Admin Dose 100 MLS/HR; Start 08/13/16 at 13:30 TACOS GREEN MD Aug 13, 2016 17:04
[2016-08-13 19:35] VITALS: BP 157/87; RESP 18
[2016-08-13] MEDS: LATANOPROST 0.005% 2.5 ML OPH BOTH EYES SCH (20:41)
[2016-08-13] MEDS: OLANZAPINE 5 MG TAB PO SCH (20:42)
[2016-08-14] MEDS: VANCOMYCIN HCL 250 MG/5ML POSYG PO SCH ×4 (00:19→18:53)
[2016-08-14] MEDS: DEXTROSE 5% 1,000 ML IV SCH ×4 (05:20→21:47)
[2016-08-14] MEDS: metroNIDAZOLE 500 MG/NS (PMX) 100 ML IVPB SCH ×3 (05:20→22:12)
[2016-08-14 05:52] LABS: CALCIUM 6.8 mg/dl (8.4-10.2); CREATININE 2.01 mg/dl (0.61-1.24)
[2016-08-14 06:06] LABS: POTASSIUM 2.9 mmol/L (3.5-5.1)
[2016-08-14] MEDS ORDERED: POTASSIUM CHLORIDE 20 MEQ POWDER FOR ORAL SOLN PO ONE (06:30)
[2016-08-14] MEDS: PANTOPRAZOLE (EC) 40 MG TAB PO SCH (06:57)
[2016-08-14 08:05] VITALS: BP 145/85; RESP 20
[2016-08-14] MEDS: CALCIUM CARBONATE 750 MG CHEW TAB PO SCH ×3 (08:45→18:53)
[2016-08-14] MEDS: FINASTERIDE 5 MG TAB PO SCH (09:00)
[2016-08-14] MEDS: CEFTAZIDIME 1GM/50 ML (PMX) 50 ML IVPB SCH (09:59)
[2016-08-14] MEDS: BISACODYL (EC) 5 MG TAB PO SCH ×2 (10:01→21:46)
[2016-08-14] MEDS: MULTIVITAMINS THERAPEUTIC TAB PO SCH (10:01)
[2016-08-14] MEDS: ASCORBIC ACID 500 MG TAB PO SCH (10:02)
[2016-08-14] MEDS: ZINC SULFATE 220 MG CAP PO SCH (10:02)
[2016-08-14] MEDS: LACTOBACILLUS RHAMNOSUS CAP PO SCH ×2 (10:02→21:46)
[2016-08-14] MEDS: BENZTROPINE 1 MG TAB PO SCH ×2 (10:02→21:45)
[2016-08-14] MEDS: POTASSIUM CHLORIDE (SR) 20 MEQ TAB PO SCH (10:02)
[2016-08-14] MEDS: ASPIRIN 81 MG TAB PO SCH (10:02)
[2016-08-14] MEDS: BENAZEPRIL 20 MG TAB PO SCH (10:04)
[2016-08-14] MEDS: NIFEdipine (XL) 30 MG TAB PO SCH ×2 (10:04→21:46)
[2016-08-14] MEDS: METOPROLOL 25 MG TAB PO SCH ×2 (10:06→21:45)
[2016-08-14] MEDS: FUROSEMIDE 20 MG INJ IV SCH (10:07)
[2016-08-14] MEDS: COLLAGENASE 30 GM TUBE TOP SCH (10:17)
--- NOTE | 2016-08-14 13:16 | CONS ---
Date/Time of Note Date/Time of Note DATE: 08/14/16 TIME: 13:14 Assessment/Plan Assessment/Plan Chief Complaint/Hosp Course IMPRESSION: 1. Preoperative evaluation prior to debridement of heel decubitus ulcers.- negative trop x 3/NL EF by echo this admit with no sig contraindicated valve lesions. Ok to proceed to OR on BB continue pre-post op without further non- invasive eval at moderate risk if surgical intervention is required 2. Hypertension-now well controlled 3. Abnormal electrocardiogram with anteroseptal Q's and normal ejection fraction by echo this admit.-neg trop x 3 this admit 4. Clostridium difficile Colitis. 5. Renal failure. 6. Encephalopathy. 7. Chronic obstructive pulmonary disease. 8. History of cerebrovascular accident. 9. Dyslipidemia. 10. Dementia. 11. Anemia. 12. Leukocytosis. 12. Coagulopathy. 14. CHF-diastolic acute on chronic Recc: -Continue asa -Continue abx's and f/u cx data -local wound care/conservative management per surgical consults -Continue current BB/ACEI/procardia XL with reasonable controlled BP -Follow volume status closely and continue gentle daily lasix diuresis Problems: Consultation Date/Type/Reason Admit Date/Time July 09, 2016 at 12:24 Initial Consult Date 07/26/16 Type of Consultation: cardiology Reason for Consultation Pre-op/HTN Referring Provider: RONNIE PATEL MD Exam/Review of Systems Vital Signs Vitals Vital Signs Date Time Temp Pulse Resp B/P Pulse Ox O2 Delivery O2 Flow Rate FiO2 08/14/16 08:05 97.6 84 20 145/85 94 08/12/16 02:41 21 Intake and Output 08/13/16 08/13/16 08/14/16 15:00 23:00 07:00 Intake Total 850 ml 1350 ml 1430 ml Output Total 350 ml 950 ml 820 ml Balance 500 ml 400 ml 610 ml Exam Review of Systems: CONSTITUTIONAL: No fevers, chills. PULMONARY: No sob CARDIOVASCULAR: No chest pain/palpitations GASTROINTESTINAL: No nausea/vomiting. GENITOURINARY: No hematuria/dysuria. MUSCULOSKELETAL: No myagias/arthalgias. PSYCHIATRIC: The patient denies depression. NEUROLOGIC: lethargic Constitutional: alert Psych: no complaints Head: normocephalic ENMT: mucosa pink and moist Neck: jvd (8-9 cm water), supple Respiratory: diminished breath sounds (at bases/B) Cardiovascular: regular rate and rhythm Gastrointestinal: non-tender, soft Musculoskeletal: muscle tone (normal) Extremities: edema (none) Neurological: other (NO focal deficits) Results Result Diagram: 08/12/16 0545 08/14/16 0500 Results 24 hrs Laboratory Tests Test 08/14/16 05:00 Sodium Level 149 H Potassium Level 2.9 *L Chloride Level 123 H Carbon Dioxide Level 17 L Anion Gap 12 Blood Urea Nitrogen 27 H Creatinine 2.01 H Glucose Level 104 Calcium Level 6.8 L Medications Medications Current Medications Acetaminophen (Tylenol Tab) 500 mg Q6H PRN PO PAIN AND OR ELEVATED TEMP; Start 07/09/16 at 20:30 Ondansetron HCl (Zofran Inj) 4 mg Q6H PRN IV NAUSEA AND/OR VOMITING; Start at 20:30 Aspirin (Aspirin) 81 mg DAILY PO Last administered on 08/14/16 10:02; Admin Dose 81 MG; Start 07/10/16 at 09:00 Benztropine Mesylate (Cogentin) 1 mg BID PO Last administered on 08/14/16 10: 02; Admin Dose 1 MG; Start 07/09/16 at 21:00 Finasteride (Proscar) 5 mg DAILY PO Last administered on 08/13/16 13:14; Admin Dose 5 MG; Start 07/10/16 at 09:00 Acetaminophen/ Hydrocodone Bitart ([place] (5/325)) 1 tab Q4 PRN PO SEVERE PAIN LEVEL 7-10 Last administered on 07/15/16 16:21; Admin Dose 1 TAB; Start at 20:30 Latanoprost (Xalatan) 1 drop QHS BOTH EYES Last administered on 08/13/16 20:41 ; Admin Dose 1 DROP; Start 07/09/16 at 21:00 Multivitamins Therapeutic (Theragran) 1 tab DAILY PO Last administered on 10:01; Admin Dose 1 TAB; Start 07/10/16 at 09:00 Olanzapine (Zyprexa) 5 mg QHS PO Last administered on 08/13/16 20:42; Admin Dose 5 MG; Start 07/09/16 at 21:00 Zinc Sulfate (Zinc Sulfate) 220 mg DAILY PO Last administered on 08/14/16 10: 02; Admin Dose 220 MG; Start 07/10/16 at 09:00 Acetaminophen (Tylenol Supp) 650 mg Q6H PRN [place] ELEVATED TEMPERATURE Last administered on 07/10/16 09:51; Admin Dose 650 MG; Start 07/10/16 at 09:30 Collagenase (Santyl) 1 applic DAILY TOP Last administered on 08/14/16 10:17; Admin Dose 1 APPLIC; Start 07/10/16 at 14:00 Bisacodyl (Dulcolax) 10 mg BID PO Last administered on 08/14/16 10:01; Admin Dose 10 MG; Start 07/13/16 at 15:00 Benazepril HCl (Lotensin) 20 mg DAILY PO Last administered on 08/14/16 10:04; Admin Dose 20 MG; Start 07/16/16 at 09:00 Zolpidem Tartrate (Ambien) 2.5 mg HS PRN PO INSOMNIA; Start 07/17/16 at 19:00 Lorazepam (Ativan) 0.5 mg Q6H PRN PO ANXEITY Last administered on 07/19/16 22: 28; Admin Dose 0.5 MG; Start 07/18/16 at 16:00 Vancomycin HCl 125 mg 125 mg Q6 PO Last administered on 08/14/16 05:21; Admin Dose 125 MG; Start 07/21/16 at 19:00 Metronidazole (Flagyl 500 Mg (Pmx)) 100 ml @ 100 mls/hr Q8 IVPB Last administered on 08/14/16 05:20; Admin Dose 100 MLS/HR; Start 07/22/16 at 16:30 Lactobacillus Acidophilus/ Rhamnosus (Culturelle) 1 cap BID PO Last administered on 08/14/16 10:02; Admin Dose 1 CAP; Start 07/23/16 at 21:00 Ascorbic Acid (Vitamin C) 500 mg DAILY PO Last administered on 08/14/16 10:02 ; Admin Dose 500 MG; Start 07/26/16 at 09:00 Metoprolol Tartrate (Lopressor) 25 mg BID PO Last administered on 08/14/16 10: 06; Admin Dose 25 MG; Start 07/28/16 at 21:00 Hydralazine HCl (Apresoline) 10 mg Q4H PRN IV ELEVATED BLOOD PRESSURE Last administered on 07/29/16 14:50; Admin Dose 10 MG; Start 07/28/16 at 20:30 Nifedipine (Procardia Xl) 60 mg QAM PO Last administered on 08/14/16 10:04; Admin Dose 60 MG; Start 08/02/16 at 09:00 Nifedipine 30 mg 30 mg QHS PO Last administered on 08/13/16 20:42; Admin Dose 30 MG; Start 08/01/16 at 21:00 Daptomycin 470 mg/ Sodium Chloride 100 ml @ 200 mls/hr Q48H IVPB Last administered on 08/12/16 23:23; Admin Dose 200 MLS/HR; Start 08/02/16 at 22:00 Ceftazidime (Fortaz 1gm/50 ml (Pmx)) 50 ml @ 100 mls/hr DAILY IVPB Last administered on 08/14/16 09:59; Admin Dose 100 MLS/HR; Start 08/12/16 at 09:00 Epoetin Zana (Epogen (Esrd)) 8,000 units TuThSa@17 SC Last administered on 08/12 17:47; Admin Dose 8,000 UNITS; Start 08/12/16 at 17:00 Furosemide (Lasix) 20 mg DAILY IV Last administered on 08/14/16 10:07; Admin Dose 20 MG; Start 08/13/16 at 09:00 Potassium Chloride 20 meq 20 meq DAILY PO Last administered on 08/14/16 10:02 ; Admin Dose 20 MEQ; Start 08/13/16 at 09:00 Dextrose (D5W) 1,000 ml @ 100 mls/hr Q10H IV Last administered on 08/14/16 05 :20; Admin Dose 100 MLS/HR; Start 08/13/16 at 13:30 PACHECO COHEN Aug 14, 2016 13:15
--- NOTE | 2016-08-14 15:01 | PN ---
Date/Time of Note Date/Time of Note DATE: 08/14/16 TIME: 14:58 Assessment/Plan Lines/Catheters IV C[facility]ter Type (from [facility]): [facility] Urinary Cath still in place: Yes Assessment/Plan Assessment/Plan - Hypernatremia, start IV fluids with D5 at 100 cc/h, BMP tomorrow. - Severe Hypokalemia, replacement ordered. - Recurrent sepsis secondary to UTI. Dr. Langford is following an infection disease consultation. - Pseudomonas urinary tract infection. Continue antibiotics per ID. - Osteomyelitis of bilateral heels, continue daptomycin until August 25 per ID. - Bilateral heel wounds, patient is evaluated by Dr. Bell in podiatry consultation with recommendation of continue current wound care and not to proceed with debridement. - C. difficile colitis. Dr. Beatriz cardenas is following an infection disease consultation. Continue oral vancomycin and intravenous metronidazole. - Colitis ulcers per colonoscopy, continue to follow-up gastroenterology recommendations. - Infected wounds on bilateral lower extremities. Continue antibiotics per ID. - Acute kidney injury on chronic kidney disease stage III with electrolyte imbalances. Dr. Clarke is following in nephrology consultation. - Acute metabolic encephalopathy, resolved. - Hypertension. Continue clonidine, Procardia and benazepril - Chronic obstructive pulmonary disease. Continue DuoNeb. - Benign prostatic hypertrophy. Continue Flomax. - Multiple decubitus ulcers present on admission. Continue local wound care, offloading. - Acute cerebrovascular accident. Continue aspirin. - Dyslipidemia. Continue Lipitor. - Dementia with behavioral disturbance. Continue Zyprexa. Subjective 24 Hr Interval Summary Constitutional: requiring O2 Eyes: no complaints ENT: no complaints Respiratory: no complaints Cardiovascular: no complaints Gastrointestinal: no complaints Exam/Review of Systems Vital Signs Vitals Vital Signs Date Time Temp Pulse Resp B/P Pulse Ox O2 Delivery O2 Flow Rate FiO2 08/14/16 08:05 97.6 84 20 145/85 94 08/12/16 02:41 21 Intake and Output 08/13/16 08/13/16 08/14/16 15:00 23:00 07:00 Intake Total 850 ml 1350 ml 1430 ml Output Total 350 ml 950 ml 820 ml Balance 500 ml 400 ml 610 ml Exam Constitutional: alert, well developed Respiratory: clear to auscultation, normal air movement Cardiovascular: nl pulses, regular rate and rhythm Gastrointestinal: non-tender, soft Musculoskeletal: muscle weakness, nl extremities to inspection Extremities: normal pulses Neurological: nl speech Skin: other (natalie heel wounds) Results Result Diagram: 08/12/16 0545 08/14/16 0500 Results 24 hrs Laboratory Tests Test 08/14/16 05:00 Sodium Level 149 H Potassium Level 2.9 *L Chloride Level 123 H Carbon Dioxide Level 17 L Anion Gap 12 Blood Urea Nitrogen 27 H Creatinine 2.01 H Glucose Level 104 Calcium Level 6.8 L Medications Medications Current Medications Acetaminophen (Tylenol Tab) 500 mg Q6H PRN PO PAIN AND OR ELEVATED TEMP; Start 07/09/16 at 20:30 Ondansetron HCl (Zofran Inj) 4 mg Q6H PRN IV NAUSEA AND/OR VOMITING; Start at 20:30 Aspirin (Aspirin) 81 mg DAILY PO Last administered on 08/14/16 10:02; Admin Dose 81 MG; Start 07/10/16 at 09:00 Benztropine Mesylate (Cogentin) 1 mg BID PO Last administered on 08/14/16 10: 02; Admin Dose 1 MG; Start 07/09/16 at 21:00 Finasteride (Proscar) 5 mg DAILY PO Last administered on 08/13/16 13:14; Admin Dose 5 MG; Start 07/10/16 at 09:00 Acetaminophen/ Hydrocodone Bitart ([place] (5/325)) 1 tab Q4 PRN PO SEVERE PAIN LEVEL 7-10 Last administered on 07/15/16 16:21; Admin Dose 1 TAB; Start at 20:30 Latanoprost (Xalatan) 1 drop QHS BOTH EYES Last administered on 08/13/16 20:41 ; Admin Dose 1 DROP; Start 07/09/16 at 21:00 Multivitamins Therapeutic (Theragran) 1 tab DAILY PO Last administered on 10:01; Admin Dose 1 TAB; Start 07/10/16 at 09:00 Olanzapine (Zyprexa) 5 mg QHS PO Last administered on 08/13/16 20:42; Admin Dose 5 MG; Start 07/09/16 at 21:00 Zinc Sulfate (Zinc Sulfate) 220 mg DAILY PO Last administered on 08/14/16 10: 02; Admin Dose 220 MG; Start 07/10/16 at 09:00 Acetaminophen (Tylenol Supp) 650 mg Q6H PRN [place] ELEVATED TEMPERATURE Last administered on 07/10/16 09:51; Admin Dose 650 MG; Start 07/10/16 at 09:30 Collagenase (Santyl) 1 applic DAILY TOP Last administered on 08/14/16 10:17; Admin Dose 1 APPLIC; Start 07/10/16 at 14:00 Bisacodyl (Dulcolax) 10 mg BID PO Last administered on 08/14/16 10:01; Admin Dose 10 MG; Start 07/13/16 at 15:00 Benazepril HCl (Lotensin) 20 mg DAILY PO Last administered on 08/14/16 10:04; Admin Dose 20 MG; Start 07/16/16 at 09:00 Zolpidem Tartrate (Ambien) 2.5 mg HS PRN PO INSOMNIA; Start 07/17/16 at 19:00 Lorazepam (Ativan) 0.5 mg Q6H PRN PO ANXEITY Last administered on 07/19/16 22: 28; Admin Dose 0.5 MG; Start 07/18/16 at 16:00 Vancomycin HCl 125 mg 125 mg Q6 PO Last administered on 08/14/16 13:50; Admin Dose 125 MG; Start 07/21/16 at 19:00 Metronidazole (Flagyl 500 Mg (Pmx)) 100 ml @ 100 mls/hr Q8 IVPB Last administered on 08/14/16 13:50; Admin Dose 100 MLS/HR; Start 07/22/16 at 16:30 Lactobacillus Acidophilus/ Rhamnosus (Culturelle) 1 cap BID PO Last administered on 08/14/16 10:02; Admin Dose 1 CAP; Start 07/23/16 at 21:00 Ascorbic Acid (Vitamin C) 500 mg DAILY PO Last administered on 08/14/16 10:02 ; Admin Dose 500 MG; Start 07/26/16 at 09:00 Metoprolol Tartrate (Lopressor) 25 mg BID PO Last administered on 08/14/16 10: 06; Admin Dose 25 MG; Start 07/28/16 at 21:00 Hydralazine HCl (Apresoline) 10 mg Q4H PRN IV ELEVATED BLOOD PRESSURE Last administered on 07/29/16 14:50; Admin Dose 10 MG; Start 07/28/16 at 20:30 Nifedipine (Procardia Xl) 60 mg QAM PO Last administered on 08/14/16 10:04; Admin Dose 60 MG; Start 08/02/16 at 09:00 Nifedipine 30 mg 30 mg QHS PO Last administered on 08/13/16 20:42; Admin Dose 30 MG; Start 08/01/16 at 21:00 Daptomycin 470 mg/ Sodium Chloride 100 ml @ 200 mls/hr Q48H IVPB Last administered on 08/12/16 23:23; Admin Dose 200 MLS/HR; Start 08/02/16 at 22:00 Ceftazidime (Fortaz 1gm/50 ml (Pmx)) 50 ml @ 100 mls/hr DAILY IVPB Last administered on 08/14/16 09:59; Admin Dose 100 MLS/HR; Start 08/12/16 at 09:00 Epoetin Zana (Epogen (Esrd)) 8,000 units TuThSa@17 SC Last administered on 08/12 17:47; Admin Dose 8,000 UNITS; Start 08/12/16 at 17:00 Furosemide (Lasix) 20 mg DAILY IV Last administered on 08/14/16 10:07; Admin Dose 20 MG; Start 08/13/16 at 09:00 Potassium Chloride 20 meq 20 meq DAILY PO Last administered on 08/14/16 10:02 ; Admin Dose 20 MEQ; Start 08/13/16 at 09:00 Dextrose (D5W) 1,000 ml @ 100 mls/hr Q10H IV Last administered on 08/14/16 09 :30; Admin Dose 100 MLS/HR; Start 08/13/16 at 13:30 ISAEL CRYSTAL Aug 14, 2016 15:01
[2016-08-14] MEDS: EPOETIN 4000 UNITS/1 ML INJ (ESRD) SC SCH (18:57)
--- NOTE | 2016-08-14 19:05 | CONS ---
Date/Time of Note Date/Time of Note DATE: 08/14/16 TIME: 19:05 Assessment/Plan Assessment/Plan Chief Complaint/Hosp Course - possible recurrent sepsis due to UTI - UTI due to pseudomonas - sepsis due to wound infection and OM of b/l heel and C diff colitis - infection of wounds of b/l heel due to MRSA, enterococcus spp and corynebacter jeikeium (grp JK); MRI showed early osteomyelitis at b/l posterior calcaneal margin. - unstageable decub of b/l heel - C diff colitis - resolving - s/p possible HCAP, Pt completed empiric cefepime (07/10/2016-07/19/2016); CXR on 07/20/2016 showed improvement. 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 Improved after its discontinuation recommendations: - continue renally dosed ceftazidime (08/11/2016-); s/p meropenem - MRI from 08/01/2016 showed early osteomyelitis at b/l posterior calcaneal margin. We recommend total 6 weeks of IV antibiotic. - continue renally dosed IV daptomycin through 08/25/2016 (Pt received IV vancomycin, then linezolid before). CK=27 on 08/03/2016. Will repeat weekly - if Pt gets transferred to SNF, please order weekly CBC, BMP, CK while Pt's on IV antibiotics - continue PO vancomycin (07/15/2016-) and IV Flagyl (07/22/2016-) while Pt's on IV antibiotic Problems: Consultation Date/Type/Reason Admit Date/Time July 09, 2016 at 12:24 Type of Consultation: id Referring Provider: RONNIE PATEL MD Exam/Review of Systems Vital Signs Vitals Vital Signs Date Time Temp Pulse Resp B/P Pulse Ox O2 Delivery O2 Flow Rate FiO2 08/14/16 08:05 97.6 84 20 145/85 94 08/12/16 02:41 21 Intake and Output 08/13/16 08/13/16 08/14/16 15:00 23:00 07:00 Intake Total 850 ml 1350 ml 1430 ml Output Total 350 ml 950 ml 820 ml Balance 500 ml 400 ml 610 ml Results Result Diagram: 08/12/16 0545 08/14/16 0500 Results 24 hrs Laboratory Tests Test 08/14/16 05:00 Sodium Level 149 H Potassium Level 2.9 *L Chloride Level 123 H Carbon Dioxide Level 17 L Anion Gap 12 Blood Urea Nitrogen 27 H Creatinine 2.01 H Glucose Level 104 Calcium Level 6.8 L Medications Medications Current Medications Acetaminophen (Tylenol Tab) 500 mg Q6H PRN PO PAIN AND OR ELEVATED TEMP; Start 07/09/16 at 20:30 Ondansetron HCl (Zofran Inj) 4 mg Q6H PRN IV NAUSEA AND/OR VOMITING; Start at 20:30 Aspirin (Aspirin) 81 mg DAILY PO Last administered on 08/14/16 10:02; Admin Dose 81 MG; Start 07/10/16 at 09:00 Benztropine Mesylate (Cogentin) 1 mg BID PO Last administered on 08/14/16 10: 02; Admin Dose 1 MG; Start 07/09/16 at 21:00 Finasteride (Proscar) 5 mg DAILY PO Last administered on 08/13/16 13:14; Admin Dose 5 MG; Start 07/10/16 at 09:00 Acetaminophen/ Hydrocodone Bitart ([place] (5/325)) 1 tab Q4 PRN PO SEVERE PAIN LEVEL 7-10 Last administered on 07/15/16 16:21; Admin Dose 1 TAB; Start at 20:30 Latanoprost (Xalatan) 1 drop QHS BOTH EYES Last administered on 08/13/16 20:41 ; Admin Dose 1 DROP; Start 07/09/16 at 21:00 Multivitamins Therapeutic (Theragran) 1 tab DAILY PO Last administered on 10:01; Admin Dose 1 TAB; Start 07/10/16 at 09:00 Olanzapine (Zyprexa) 5 mg QHS PO Last administered on 08/13/16 20:42; Admin Dose 5 MG; Start 07/09/16 at 21:00 Zinc Sulfate (Zinc Sulfate) 220 mg DAILY PO Last administered on 08/14/16 10: 02; Admin Dose 220 MG; Start 07/10/16 at 09:00 Acetaminophen (Tylenol Supp) 650 mg Q6H PRN [place] ELEVATED TEMPERATURE Last administered on 07/10/16 09:51; Admin Dose 650 MG; Start 07/10/16 at 09:30 Collagenase (Santyl) 1 applic DAILY TOP Last administered on 08/14/16 10:17; Admin Dose 1 APPLIC; Start 07/10/16 at 14:00 Bisacodyl (Dulcolax) 10 mg BID PO Last administered on 08/14/16 10:01; Admin Dose 10 MG; Start 07/13/16 at 15:00 Benazepril HCl (Lotensin) 20 mg DAILY PO Last administered on 08/14/16 10:04; Admin Dose 20 MG; Start 07/16/16 at 09:00 Zolpidem Tartrate (Ambien) 2.5 mg HS PRN PO INSOMNIA; Start 07/17/16 at 19:00 Lorazepam (Ativan) 0.5 mg Q6H PRN PO ANXEITY Last administered on 07/19/16 22: 28; Admin Dose 0.5 MG; Start 07/18/16 at 16:00 Vancomycin HCl 125 mg 125 mg Q6 PO Last administered on 08/14/16 18:53; Admin Dose 125 MG; Start 07/21/16 at 19:00 Metronidazole (Flagyl 500 Mg (Pmx)) 100 ml @ 100 mls/hr Q8 IVPB Last administered on 08/14/16 13:50; Admin Dose 100 MLS/HR; Start 07/22/16 at 16:30 Lactobacillus Acidophilus/ Rhamnosus (Culturelle) 1 cap BID PO Last administered on 08/14/16 10:02; Admin Dose 1 CAP; Start 07/23/16 at 21:00 Ascorbic Acid (Vitamin C) 500 mg DAILY PO Last administered on 08/14/16 10:02 ; Admin Dose 500 MG; Start 07/26/16 at 09:00 Metoprolol Tartrate (Lopressor) 25 mg BID PO Last administered on 08/14/16 10: 06; Admin Dose 25 MG; Start 07/28/16 at 21:00 Hydralazine HCl (Apresoline) 10 mg Q4H PRN IV ELEVATED BLOOD PRESSURE Last administered on 07/29/16 14:50; Admin Dose 10 MG; Start 07/28/16 at 20:30 Nifedipine (Procardia Xl) 60 mg QAM PO Last administered on 08/14/16 10:04; Admin Dose 60 MG; Start 08/02/16 at 09:00 Nifedipine 30 mg 30 mg QHS PO Last administered on 08/13/16 20:42; Admin Dose 30 MG; Start 08/01/16 at 21:00 Daptomycin 470 mg/ Sodium Chloride 100 ml @ 200 mls/hr Q48H IVPB Last administered on 08/12/16 23:23; Admin Dose 200 MLS/HR; Start 08/02/16 at 22:00 Ceftazidime (Fortaz 1gm/50 ml (Pmx)) 50 ml @ 100 mls/hr DAILY IVPB Last administered on 08/14/16 09:59; Admin Dose 100 MLS/HR; Start 08/12/16 at 09:00 Epoetin Zana (Epogen (Esrd)) 8,000 units TuThSa@17 SC Last administered on 08/14 18:57; Admin Dose 8,000 UNITS; Start 08/12/16 at 17:00 Furosemide (Lasix) 20 mg DAILY IV Last administered on 08/14/16 10:07; Admin Dose 20 MG; Start 08/13/16 at 09:00 Potassium Chloride 20 meq 20 meq DAILY PO Last administered on 08/14/16 10:02 ; Admin Dose 20 MEQ; Start 08/13/16 at 09:00 Dextrose (D5W) 1,000 ml @ 100 mls/hr Q10H IV Last administered on 08/14/16 09 :30; Admin Dose 100 MLS/HR; Start 08/13/16 at 13:30 ALVA GEE MD Aug 14, 2016 19:05
[2016-08-14 20:00] VITALS: BP 126/68; RESP 20
--- NOTE | 2016-08-14 21:27 | CONS ---
Date/Time of Note Date/Time of Note DATE: 08/14/16 TIME: 21:19 Assessment/Plan Assessment/Plan Chief Complaint/Hosp Course Renal function continues to improve gradually. Persistent Pyuria may represent Intra-renal abcess. Problems: Additional Assessment/Plan Ptsoral intake may be inadequate resulting in high SNa & drop in Sk. Cont'd Hospitalization Reason: Will recheck UA since he continues to have pyuria & bacteruria- Consultation Date/Type/Reason Admit Date/Time July 09, 2016 at 12:24 Initial Consult Date 07/11/16 Type of Consultation: renal Referring Provider: RONNIE PATEL MD 24 HR Interval Summary Free Text/Dictation Pt remains clinically stable Exam/Review of Systems Vital Signs Vitals Vital Signs Date Time Temp Pulse Resp B/P Pulse Ox O2 Delivery O2 Flow Rate FiO2 08/14/16 20:00 98.7 88 20 126/68 96 08/12/16 02:41 21 Intake and Output 08/13/16 08/13/16 08/14/16 15:00 23:00 07:00 Intake Total 850 ml 1350 ml 1430 ml Output Total 350 ml 950 ml 820 ml Balance 500 ml 400 ml 610 ml Exam awake tho remains confined to bed Constitutional: alert, frail Psych: nl mood/affect, no complaints Head: atraumatic, normocephalic Eyes: EOMI, PERRL, nl conjunctiva, nl lids, nl sclera ENMT: nl external ears & nose, nl lips & teeth, nl nasal mucosa & septum Neck: non-tender, supple Respiratory: clear to auscultation, normal air movement Cardiovascular: nl pulses, regular rate and rhythm Gastrointestinal: nl liver, spleen, non-tender, soft Musculoskeletal: nl extremities to inspection, nl gait and stance Extremities: normal pulses, other (dressin place both ankles) Neurological: CASE HARDENER II-XII intact, nl mental status, nl speech, nl strength Skin: nl turgor, No rash or lesions Lymph: nl lymph nodes Results Pt getting D5W which should improve SNa, will contine for a while & monitor electrolytes closely Result Diagram: 08/12/16 8320 08/14/16 0500 Results 24 hrs Laboratory Tests Test 08/14/16 05:00 Sodium Level 149 H Potassium Level 2.9 *L Chloride Level 123 H Carbon Dioxide Level 17 L Anion Gap 12 Blood Urea Nitrogen 27 H Creatinine 2.01 H Glucose Level 104 Calcium Level 6.8 L Medications Medications Current Medications Acetaminophen (Tylenol Tab) 500 mg Q6H PRN PO PAIN AND OR ELEVATED TEMP; Start 07/09/16 at 20:30 Ondansetron HCl (Zofran Inj) 4 mg Q6H PRN IV NAUSEA AND/OR VOMITING; Start at 20:30 Aspirin (Aspirin) 81 mg DAILY PO Last administered on 08/14/16 10:02; Admin Dose 81 MG; Start 07/10/16 at 09:00 Benztropine Mesylate (Cogentin) 1 mg BID PO Last administered on 08/14/16 10: 02; Admin Dose 1 MG; Start 07/09/16 at 21:00 Finasteride (Proscar) 5 mg DAILY PO Last administered on 08/13/16 13:14; Admin Dose 5 MG; Start 07/10/16 at 09:00 Acetaminophen/ Hydrocodone Bitart ([place] (5/325)) 1 tab Q4 PRN PO SEVERE PAIN LEVEL 7-10 Last administered on 07/15/16 16:21; Admin Dose 1 TAB; Start at 20:30 Latanoprost (Xalatan) 1 drop QHS BOTH EYES Last administered on 08/13/16 20:41 ; Admin Dose 1 DROP; Start 07/09/16 at 21:00 Multivitamins Therapeutic (Theragran) 1 tab DAILY PO Last administered on 10:01; Admin Dose 1 TAB; Start 07/10/16 at 09:00 Olanzapine (Zyprexa) 5 mg QHS PO Last administered on 08/13/16 20:42; Admin Dose 5 MG; Start 07/09/16 at 21:00 Zinc Sulfate (Zinc Sulfate) 220 mg DAILY PO Last administered on 08/14/16 10: 02; Admin Dose 220 MG; Start 07/10/16 at 09:00 Acetaminophen (Tylenol Supp) 650 mg Q6H PRN [place] ELEVATED TEMPERATURE Last administered on 07/10/16 09:51; Admin Dose 650 MG; Start 07/10/16 at 09:30 Collagenase (Santyl) 1 applic DAILY TOP Last administered on 08/14/16 10:17; Admin Dose 1 APPLIC; Start 07/10/16 at 14:00 Bisacodyl (Dulcolax) 10 mg BID PO Last administered on 08/14/16 10:01; Admin Dose 10 MG; Start 07/13/16 at 15:00 Benazepril HCl (Lotensin) 20 mg DAILY PO Last administered on 08/14/16 10:04; Admin Dose 20 MG; Start 07/16/16 at 09:00 Zolpidem Tartrate (Ambien) 2.5 mg HS PRN PO INSOMNIA; Start 07/17/16 at 19:00 Lorazepam (Ativan) 0.5 mg Q6H PRN PO ANXEITY Last administered on 07/19/16 22: 28; Admin Dose 0.5 MG; Start 07/18/16 at 16:00 Vancomycin HCl 125 mg 125 mg Q6 PO Last administered on 08/14/16 18:53; Admin Dose 125 MG; Start 07/21/16 at 19:00 Metronidazole (Flagyl 500 Mg (Pmx)) 100 ml @ 100 mls/hr Q8 IVPB Last administered on 08/14/16 13:50; Admin Dose 100 MLS/HR; Start 07/22/16 at 16:30 Lactobacillus Acidophilus/ Rhamnosus (Culturelle) 1 cap BID PO Last administered on 08/14/16 10:02; Admin Dose 1 CAP; Start 07/23/16 at 21:00 Ascorbic Acid (Vitamin C) 500 mg DAILY PO Last administered on 08/14/16 10:02 ; Admin Dose 500 MG; Start 07/26/16 at 09:00 Metoprolol Tartrate (Lopressor) 25 mg BID PO Last administered on 08/14/16 10: 06; Admin Dose 25 MG; Start 07/28/16 at 21:00 Hydralazine HCl (Apresoline) 10 mg Q4H PRN IV ELEVATED BLOOD PRESSURE Last administered on 07/29/16 14:50; Admin Dose 10 MG; Start 07/28/16 at 20:30 Nifedipine (Procardia Xl) 60 mg QAM PO Last administered on 08/14/16 10:04; Admin Dose 60 MG; Start 08/02/16 at 09:00 Nifedipine 30 mg 30 mg QHS PO Last administered on 08/13/16 20:42; Admin Dose 30 MG; Start 08/01/16 at 21:00 Daptomycin 470 mg/ Sodium Chloride 100 ml @ 200 mls/hr Q48H IVPB Last administered on 08/12/16 23:23; Admin Dose 200 MLS/HR; Start 08/02/16 at 22:00 Ceftazidime (Fortaz 1gm/50 ml (Pmx)) 50 ml @ 100 mls/hr DAILY IVPB Last administered on 08/14/16 09:59; Admin Dose 100 MLS/HR; Start 08/12/16 at 09:00 Epoetin Zana (Epogen (Esrd)) 8,000 units TuThSa@17 SC Last administered on 08/14 18:57; Admin Dose 8,000 UNITS; Start 08/12/16 at 17:00 Furosemide (Lasix) 20 mg DAILY IV Last administered on 08/14/16 10:07; Admin Dose 20 MG; Start 08/13/16 at 09:00 Potassium Chloride 20 meq 20 meq DAILY PO Last administered on 08/14/16 10:02 ; Admin Dose 20 MEQ; Start 08/13/16 at 09:00 Dextrose (D5W) 1,000 ml @ 100 mls/hr Q10H IV Last administered on 08/14/16 09 :30; Admin Dose 100 MLS/HR; Start 08/13/16 at 13:30 JUANA AYALA MD Aug 14, 2016 21:27
[2016-08-14] MEDS: OLANZAPINE 5 MG TAB PO SCH (21:46)
[2016-08-14] MEDS: LATANOPROST 0.005% 2.5 ML OPH BOTH EYES SCH (21:48)
[2016-08-14 22:12] LABS: CALCIUM 6.6 mg/dl (8.4-10.2); CREATININE 1.85 mg/dl (0.61-1.24); POTASSIUM 3.4 mmol/L (3.5-5.1)
--- NOTE | 2016-08-14 22:50 | PN ---
Date/Time of Note Date/Time of Note DATE: 08/14/16 TIME: 22:50 Assessment/Plan Lines/Catheters IV Catheter Type (from [facility]): Peripheral IV [place] in Place (from [facility]): Yes Exam/Review of Systems Vital Signs Vitals Vital Signs Date Time Temp Pulse Resp B/P Pulse Ox O2 Delivery O2 Flow Rate FiO2 08/14/16 20:00 98.7 88 20 126/68 96 08/12/16 02:41 21 Intake and Output 08/13/16 08/13/16 08/14/16 15:00 23:00 07:00 Intake Total 850 ml 1350 ml 1430 ml Output Total 350 ml 950 ml 820 ml Balance 500 ml 400 ml 610 ml Results Result Diagram: 08/12/16 0545 08/14/16 2138 NIRAV GIMENEZ DPM Aug 14, 2016 22:50
[2016-08-14] MEDS: DAPTOMYCIN 470 MG in SOD CHLORIDE 0.9% 100 ML IVPB SCH (23:34)
[2016-08-15] MEDS: VANCOMYCIN HCL 250 MG/5ML POSYG PO SCH ×4 (00:22→19:55)
[2016-08-15] MEDS: DEXTROSE 5% 1,000 ML IV SCH ×2 (05:30→15:34)
[2016-08-15] MEDS: metroNIDAZOLE 500 MG/NS (PMX) 100 ML IVPB SCH ×2 (06:13→13:59)
[2016-08-15 06:39] LABS: BASOPHILS % 0.2 % (0.0-2.0); EOSINOPHILS # 0.7 10^3/ul (0.0-0.5); EOSINOPHILS % 4.9 % (0.0-7.0); HEMATOCRIT 26.3 % (42.0-52.0); HEMOGLOBIN 8.5 g/dl (14.0-18.0); LYMPHOCYTES # 1.9 10^3/ul (0.8-2.9); LYMPHOCYTES % 12.8 % (15.0-51.0); MEAN CORPUSCULAR HEMOGLOBIN 29.5 pg (29.0-33.0); MEAN CORPUSCULAR HGB CONC 32.3 g/dl (32.0-37.0); MEAN CORPUSCULAR VOLUME 91.3 fl (82.0-101.0); MEAN PLATELET VOLUME 9.3 fl (7.4-10.4); MONOCYTE # 1.4 10^3/ul (0.3-0.9); MONOCYTES % 9.3 % (0.0-11.0); NEUTROPHIL # 10.5 10^3/ul (1.6-7.5); PLATELET COUNT 613 10^3/UL (140-415); RED BLOOD COUNT 2.88 10^6/ul (4.70-6.10); RED CELL DISTRIBUTION WIDTH 20.4 % (11.5-14.5); WHITE BLOOD COUNT 14.8 10^3/ul (4.8-10.8)
[2016-08-15 06:51] LABS: ADD UMIC YES; UR BILIRUBIN (Dip) NEGATIVE (NEGATIVE); UR BLOOD (Dip) 3+ (NEGATIVE); UR CLARITY SLIGHTLY CLOUDY (CLEAR); UR COLOR LT. YELLOW (YELLOW); UR GLUCOSE (Dip) NEGATIVE (NEGATIVE); UR KETONES (Dip) NEGATIVE (NEGATIVE); UR LEUKOCYTE ESTERASE (Dip) 3+ (NEGATIVE); UR NITRITE (Dip) NEGATIVE (NEGATIVE); UR TOTAL PROTEIN (Dip) 2+ (NEGATIVE); UR UROBILINOGEN (Dip) 0.2 E.U./dL (0.1-1.0)
[2016-08-15 07:09] LABS: CALCIUM 6.6 mg/dl (8.4-10.2); CREATININE 1.72 mg/dl (0.61-1.24); POTASSIUM 3.5 mmol/L (3.5-5.1)
[2016-08-15 07:17] LABS: UR BACTERIA MODERATE /HPF (NONE SEEN)
[2016-08-15 07:27] LABS: ADD SCAN DIFF NO
[2016-08-15 07:35] VITALS: BP 148/84; RESP 16
[2016-08-15] MEDS: POTASSIUM CHLORIDE (SR) 20 MEQ TAB PO SCH (10:11)
[2016-08-15] MEDS: FUROSEMIDE 20 MG INJ IV SCH (10:11)
[2016-08-15] MEDS: METOPROLOL 25 MG TAB PO SCH ×2 (10:11→20:26)
[2016-08-15] MEDS: ZINC SULFATE 220 MG CAP PO SCH (10:11)
[2016-08-15] MEDS: BENAZEPRIL 20 MG TAB PO SCH (10:12)
[2016-08-15] MEDS: NIFEdipine (XL) 30 MG TAB PO SCH ×2 (10:12→20:26)
[2016-08-15] MEDS: BENZTROPINE 1 MG TAB PO SCH ×2 (10:12→20:25)
[2016-08-15] MEDS: LACTOBACILLUS RHAMNOSUS CAP PO SCH ×2 (10:12→20:25)
[2016-08-15] MEDS: FINASTERIDE 5 MG TAB PO SCH (10:12)
[2016-08-15] MEDS: ASCORBIC ACID 500 MG TAB PO SCH (10:13)
[2016-08-15] MEDS: PANTOPRAZOLE (EC) 40 MG TAB PO SCH (10:13)
[2016-08-15] MEDS: MULTIVITAMINS THERAPEUTIC TAB PO SCH (10:13)
[2016-08-15] MEDS: ASPIRIN 81 MG TAB PO SCH (10:13)
[2016-08-15] MEDS: BISACODYL (EC) 5 MG TAB PO SCH ×2 (10:13→20:26)
[2016-08-15] MEDS: CALCIUM CARBONATE 750 MG CHEW TAB PO SCH ×3 (10:16→19:55)
[2016-08-15] MEDS: COLLAGENASE 30 GM TUBE TOP SCH (10:16)
[2016-08-15] MEDS: CEFTAZIDIME 1GM/50 ML (PMX) 50 ML IVPB SCH (12:17)
--- NOTE | 2016-08-15 13:52 | CONS ---
Date/Time of Note Date/Time of Note DATE: 08/15/16 TIME: 13:46 Assessment/Plan Assessment/Plan Chief Complaint/Hosp Course IMPRESSION: 1. Preoperative evaluation prior to debridement of heel decubitus ulcers.- negative trop x 3/NL EF by echo this admit with no sig contraindicated valve lesions. Ok to proceed to OR on BB continue pre-post op without further non- invasive eval at moderate risk if surgical intervention is required 2. Hypertension-now well controlled 3. Abnormal electrocardiogram with anteroseptal Q's and normal ejection fraction by echo this admit.-neg trop x 3 this admit 4. Clostridium difficile Colitis. 5. Renal failure. 6. Encephalopathy. 7. Chronic obstructive pulmonary disease. 8. History of cerebrovascular accident. 9. Dyslipidemia. 10. Dementia. 11. Anemia. 12. Leukocytosis. 12. Coagulopathy. 14. CHF-diastolic acute on chronic Recc: -Continue asa -Continue abx's and f/u cx data -local wound care/conservative management per surgical consults -Continue current BB/procardia XL with slight increase in ACEI to improve overall SBP -Follow volume status closely and continue gentle daily lasix diuresis Problems: Consultation Date/Type/Reason Admit Date/Time July 09, 2016 at 12:24 Initial Consult Date 07/26/16 Type of Consultation: cardiology Reason for Consultation HTN Referring Provider: RONNIE PATEL MD Exam/Review of Systems Vital Signs Vitals Vital Signs Date Time Temp Pulse Resp B/P Pulse Ox O2 Delivery O2 Flow Rate FiO2 08/15/16 07:35 98.1 82 16 148/84 92 08/12/16 02:41 21 Intake and Output 08/14/16 08/14/16 08/15/16 15:00 23:00 07:00 Intake Total 150 ml 1720 ml 800 ml Output Total 700 ml Balance 150 ml 1020 ml 800 ml Exam Review of Systems: CONSTITUTIONAL: No fevers, chills. PULMONARY: No sob CARDIOVASCULAR: No chest pain/palpitations GASTROINTESTINAL: No nausea/vomiting. GENITOURINARY: No hematuria/dysuria. MUSCULOSKELETAL: No myagias/arthalgias. PSYCHIATRIC: The patient denies depression. NEUROLOGIC: No weakness Constitutional: other (sleeping) Psych: no complaints Head: normocephalic ENMT: mucosa pink and moist Neck: jvd (9cm), supple Respiratory: diminished breath sounds (at bases/B) Cardiovascular: irregular rhythm Gastrointestinal: non-tender, soft Musculoskeletal: muscle weakness (generalized) Extremities: edema (trace/covered by dressing) Neurological: other Results Result Diagram: 08/15/16 0510 08/15/16 0510 Results 24 hrs Laboratory Tests Test 08/14/16 21:38 08/15/16 05:00 08/15/16 05:10 08/15/16 05:20 Sodium Level 142 145 H Potassium Level 3.4 L 3.5 Chloride Level 117 H 115 H Carbon Dioxide Level 21 19 L Anion Gap 7 L 15 # Blood Urea Nitrogen 23 H 22 H Creatinine 1.85 H 1.72 H Glucose Level 78 79 Calcium Level 6.6 L 6.6 L Urine Color LT. YELLOW Urine Clarity SLIGHTLY CLOUDY Urine pH 5.5 Urine Specific [place] 1.020 Urine Ketones NEGATIVE Urine Nitrite NEGATIVE Urine Bilirubin NEGATIVE Urine Urobilinogen 0.2 E.U./dL Urine Leukocyte Esterase 3+ H Urine Microscopic RBC 10-25 Urine Microscopic WBC 10-25 Urine Squamous Epithelial Cells Urine Bacteria MODERATE Urine Hemoglobin 3+ H Urine Glucose NEGATIVE Urine Total Protein 2+ H White Blood Count 14.8 #H Red Blood Count 2.88 L Hemoglobin 8.5 L Hematocrit 26.3 L Mean Corpuscular Volume 91.3 Mean Corpuscular Hemoglobin 29.5 Mean Corpuscular Hemoglobin Concent 32.3 Red Cell Distribution Width 20.4 H Platelet Count 613 H Mean Platelet Volume 9.3 Neutrophils % 71.0 Lymphocytes % 12.8 L Monocytes % 9.3 Eosinophils % 4.9 Basophils % 0.2 Nucleated Red Blood Cells % 0.0 Neutrophils # 10.5 H Lymphocytes # 1.9 Monocytes # 1.4 H Eosinophils # 0.7 H Basophils # 0.0 Nucleated Red Blood Cells # 0.0 Magnesium Level 1.1 L Medications Medications Current Medications Acetaminophen (Tylenol Tab) 500 mg Q6H PRN PO PAIN AND OR ELEVATED TEMP; Start 07/09/16 at 20:30 Ondansetron HCl (Zofran Inj) 4 mg Q6H PRN IV NAUSEA AND/OR VOMITING; Start at 20:30 Aspirin (Aspirin) 81 mg DAILY PO Last administered on 08/15/16t 10:13; Admin Dose 81 MG; Start 07/10/16 at 09:00 Benztropine Mesylate (Cogentin) 1 mg BID PO Last administered on 08/15/16 10: 12; Admin Dose 1 MG; Start 07/09/16 at 21:00 Finasteride (Proscar) 5 mg DAILY PO Last administered on 08/15/16 10:12; Admin Dose 5 MG; Start 07/10/16 at 09:00 Acetaminophen/ Hydrocodone Bitart ([place] (5/325)) 1 tab Q4 PRN PO SEVERE PAIN LEVEL 7-10 Last administered on 07/15/16 16:21; Admin Dose 1 TAB; Start at 20:30 Latanoprost (Xalatan) 1 drop QHS BOTH EYES Last administered on 08/14/16 21:48 ; Admin Dose 1 DROP; Start 07/09/16 at 21:00 Multivitamins Therapeutic (Theragran) 1 tab DAILY PO Last administered on 10:13; Admin Dose 1 TAB; Start 07/10/16 at 09:00 Olanzapine (Zyprexa) 5 mg QHS PO Last administered on 08/14/16 21:46; Admin Dose 5 MG; Start 07/09/16 at 21:00 Zinc Sulfate (Zinc Sulfate) 220 mg DAILY PO Last administered on 08/15/16 10: 11; Admin Dose 220 MG; Start 07/10/16 at 09:00 Acetaminophen (Tylenol Supp) 650 mg Q6H PRN [place] ELEVATED TEMPERATURE Last administered on 07/10/16 09:51; Admin Dose 650 MG; Start 07/10/16 at 09:30 Collagenase (Santyl) 1 applic DAILY TOP Last administered on 08/15/16 10:16; Admin Dose 1 APPLIC; Start 07/10/16 at 14:00 Bisacodyl (Dulcolax) 10 mg BID PO Last administered on 08/15/16 10:13; Admin Dose 10 MG; Start 07/13/16 at 15:00 Benazepril HCl (Lotensin) 20 mg DAILY PO Last administered on 08/15/16 10:12; Admin Dose 20 MG; Start 07/16/16 at 09:00 Zolpidem Tartrate (Ambien) 2.5 mg HS PRN PO INSOMNIA; Start 07/17/16 at 19:00 Lorazepam (Ativan) 0.5 mg Q6H PRN PO ANXEITY Last administered on 07/19/16 22: 28; Admin Dose 0.5 MG; Start 07/18/16 at 16:00 Vancomycin HCl 125 mg 125 mg Q6 PO Last administered on 08/15/16 12:17; Admin Dose 125 MG; Start 07/21/16 at 19:00 Metronidazole (Flagyl 500 Mg (Pmx)) 100 ml @ 100 mls/hr Q8 IVPB Last administered on 08/15/16 06:13; Admin Dose 100 MLS/HR; Start 07/22/16 at 16:30 Lactobacillus Acidophilus/ Rhamnosus (Culturelle) 1 cap BID PO Last administered on 08/15/16 10:12; Admin Dose 1 CAP; Start 07/23/16 at 21:00 Ascorbic Acid (Vitamin C) 500 mg DAILY PO Last administered on 08/15/16 10:13 ; Admin Dose 500 MG; Start 07/26/16 at 09:00 Metoprolol Tartrate (Lopressor) 25 mg BID PO Last administered on 08/15/16 10: 11; Admin Dose 25 MG; Start 07/28/16 at 21:00 Hydralazine HCl (Apresoline) 10 mg Q4H PRN IV ELEVATED BLOOD PRESSURE Last administered on 07/29/16 14:50; Admin Dose 10 MG; Start 07/28/16 at 20:30 Nifedipine (Procardia Xl) 60 mg QAM PO Last administered on 08/15/16 10:12; Admin Dose 60 MG; Start 08/02/16 at 09:00 Nifedipine 30 mg 30 mg QHS PO Last administered on 08/14/16 21:46; Admin Dose 30 MG; Start 08/01/16 at 21:00 Daptomycin 470 mg/ Sodium Chloride 100 ml @ 200 mls/hr Q48H IVPB Last administered on 08/14/16 23:34; Admin Dose 200 MLS/HR; Start 08/02/16 at 22:00 Ceftazidime (Fortaz 1gm/50 ml (Pmx)) 50 ml @ 100 mls/hr DAILY IVPB Last administered on 08/15/16 12:17; Admin Dose 100 MLS/HR; Start 08/12/16 at 09:00 Epoetin Zana (Epogen (Esrd)) 8,000 units TuThSa@17 SC Last administered on 08/14 18:57; Admin Dose 8,000 UNITS; Start 08/12/16 at 17:00 Furosemide (Lasix) 20 mg DAILY IV Last administered on 08/15/16 10:11; Admin Dose 20 MG; Start 08/13/16 at 09:00 Potassium Chloride 20 meq 20 meq DAILY PO Last administered on 08/15/16 10:11 ; Admin Dose 20 MEQ; Start 08/13/16 at 09:00 Dextrose (D5W) 1,000 ml @ 100 mls/hr Q10H IV Last administered on 08/14/16 21 :47; Admin Dose 100 MLS/HR; Start 08/13/16 at 13:30 PACHECO COHEN Aug 15, 2016 13:52
[2016-08-15] MEDS ORDERED: MAGNESIUM SULFATE 4 GM/100 ML 100 ML IVPB ONE (15:00)
--- NOTE | 2016-08-15 15:06 | CONS ---
Date/Time of Note Date/Time of Note DATE: 08/15/16 TIME: 15:04 Assessment/Plan Assessment/Plan Additional Assessment/Plan - possible recurrent sepsis due to UTI - UTI due to pseudomonas - sepsis due to wound infection and OM of b/l heel and C diff colitis - infection of wounds of b/l heel due to MRSA, enterococcus spp and corynebacter jeikeium (grp JK); MRI showed early osteomyelitis at b/l posterior calcaneal margin. - unstageable decub of b/l heel - C diff colitis - resolving - s/p possible HCAP, Pt completed empiric cefepime (07/10/2016-07/19/2016); CXR on 07/20/2016 showed improvement. 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 Improved after its discontinuation recommendations: - continue renally dosed ceftazidime (08/11/2016-); s/p meropenem - MRI from 08/01/2016 showed early osteomyelitis at b/l posterior calcaneal margin. We recommend total 6 weeks of IV antibiotic. - continue renally dosed IV daptomycin through 08/25/2016 (Pt received IV vancomycin, then linezolid before). CK=27 on 08/03/2016. Will repeat weekly - if Pt gets transferred to SNF, please order weekly CBC, BMP, CK while Pt's on IV antibiotics - continue PO vancomycin (07/15/2016-) and IV Flagyl (07/22/2016-) while Pt's on IV antibiotic DW Dr Henderson/ DANIEL Quick Consultation Date/Type/Reason Admit Date/Time July 09, 2016 at 12:24 Initial Consult Date 07/11/16 Type of Consultation: cardiology Referring Provider: RONNIE PATEL MD 24 HR Interval Summary Constitutional: improved Exam/Review of Systems Vital Signs Vitals Vital Signs Date Time Temp Pulse Resp B/P Pulse Ox O2 Delivery O2 Flow Rate FiO2 08/15/16 07:35 98.1 82 16 148/84 92 08/12/16 02:41 21 Intake and Output 08/14/16 08/14/16 08/15/16 15:00 23:00 07:00 Intake Total 150 ml 1720 ml 800 ml Output Total 700 ml Balance 150 ml 1020 ml 800 ml Exam Constitutional: alert, well developed Respiratory: clear to auscultation, normal air movement Cardiovascular: nl pulses Gastrointestinal: non-tender, soft Extremities: edema Neurological: nl speech Results Result Diagram: 08/15/16 0510 08/15/16 0510 Results 24 hrs Laboratory Tests Test 08/14/16 21:38 08/15/16 05:00 08/15/16 05:10 08/15/16 05:20 Sodium Level 142 145 H Potassium Level 3.4 L 3.5 Chloride Level 117 H 115 H Carbon Dioxide Level 21 19 L Anion Gap 7 L 15 # Blood Urea Nitrogen 23 H 22 H Creatinine 1.85 H 1.72 H Glucose Level 78 79 Calcium Level 6.6 L 6.6 L Urine Color LT. YELLOW Urine Clarity SLIGHTLY CLOUDY Urine pH 5.5 Urine Specific [place] 1.020 Urine Ketones NEGATIVE Urine Nitrite NEGATIVE Urine Bilirubin NEGATIVE Urine Urobilinogen 0.2 E.U./dL Urine Leukocyte Esterase 3+ H Urine Microscopic RBC 10-25 Urine Microscopic WBC 10-25 Urine Squamous Epithelial Cells Urine Bacteria MODERATE Urine Hemoglobin 3+ H Urine Glucose NEGATIVE Urine Total Protein 2+ H White Blood Count 14.8 #H Red Blood Count 2.88 L Hemoglobin 8.5 L Hematocrit 26.3 L Mean Corpuscular Volume 91.3 Mean Corpuscular Hemoglobin 29.5 Mean Corpuscular Hemoglobin Concent 32.3 Red Cell Distribution Width 20.4 H Platelet Count 613 H Mean Platelet Volume 9.3 Neutrophils % 71.0 Lymphocytes % 12.8 L Monocytes % 9.3 Eosinophils % 4.9 Basophils % 0.2 Nucleated Red Blood Cells % 0.0 Neutrophils # 10.5 H Lymphocytes # 1.9 Monocytes # 1.4 H Eosinophils # 0.7 H Basophils # 0.0 Nucleated Red Blood Cells # 0.0 Magnesium Level 1.1 L Medications Medications Current Medications Acetaminophen (Tylenol Tab) 500 mg Q6H PRN PO PAIN AND OR ELEVATED TEMP; Start 07/09/16 at 20:30 Ondansetron HCl (Zofran Inj) 4 mg Q6H PRN IV NAUSEA AND/OR VOMITING; Start at 20:30 Aspirin (Aspirin) 81 mg DAILY PO Last administered on 08/15/16 10:13; Admin Dose 81 MG; Start 07/10/16 at 09:00 Benztropine Mesylate (Cogentin) 1 mg BID PO Last administered on 08/15/16 10: 12; Admin Dose 1 MG; Start 07/09/16 at 21:00 Finasteride (Proscar) 5 mg DAILY PO Last administered on 08/15/16 10:12; Admin Dose 5 MG; Start 07/10/16 at 09:00 Acetaminophen/ Hydrocodone Bitart ([place] (5/325)) 1 tab Q4 PRN PO SEVERE PAIN LEVEL 7-10 Last administered on 07/15/16 16:21; Admin Dose 1 TAB; Start at 20:30 Latanoprost (Xalatan) 1 drop QHS BOTH EYES Last administered on 08/14/16 21:48 ; Admin Dose 1 DROP; Start 07/09/16 at 21:00 Multivitamins Therapeutic (Theragran) 1 tab DAILY PO Last administered on 10:13; Admin Dose 1 TAB; Start 07/10/16 at 09:00 Olanzapine (Zyprexa) 5 mg QHS PO Last administered on 08/14/16 21:46; Admin Dose 5 MG; Start 07/09/16 at 21:00 Zinc Sulfate (Zinc Sulfate) 220 mg DAILY PO Last administered on 08/15/16 10: 11; Admin Dose 220 MG; Start 07/10/16 at 09:00 Acetaminophen (Tylenol Supp) 650 mg Q6H PRN [place] ELEVATED TEMPERATURE Last administered on 07/10/16 09:51; Admin Dose 650 MG; Start 07/10/16 at 09:30 Collagenase (Santyl) 1 applic DAILY TOP Last administered on 08/15/16 10:16; Admin Dose 1 APPLIC; Start 07/10/16 at 14:00 Bisacodyl (Dulcolax) 10 mg BID PO Last administered on 08/15/16 10:13; Admin Dose 10 MG; Start 07/13/16 at 15:00 Zolpidem Tartrate (Ambien) 2.5 mg HS PRN PO INSOMNIA; Start 07/17/16 at 19:00 Lorazepam (Ativan) 0.5 mg Q6H PRN PO ANXEITY Last administered on 07/19/16 22: 28; Admin Dose 0.5 MG; Start 07/18/16 at 16:00 Vancomycin HCl 125 mg 125 mg Q6 PO Last administered on 08/15/16 12:17; Admin Dose 125 MG; Start 07/21/16 at 19:00 Metronidazole (Flagyl 500 Mg (Pmx)) 100 ml @ 100 mls/hr Q8 IVPB Last administered on 08/15/16 13:59; Admin Dose 100 MLS/HR; Start 07/22/16 at 16:30 Lactobacillus Acidophilus/ Rhamnosus (Culturelle) 1 cap BID PO Last administered on 08/15/16 10:12; Admin Dose 1 CAP; Start 07/23/16 at 21:00 Ascorbic Acid (Vitamin C) 500 mg DAILY PO Last administered on 08/15/16 10:13 ; Admin Dose 500 MG; Start 07/26/16 at 09:00 Metoprolol Tartrate (Lopressor) 25 mg BID PO Last administered on 08/15/16 10: 11; Admin Dose 25 MG; Start 07/28/16 at 21:00 Hydralazine HCl (Apresoline) 10 mg Q4H PRN IV ELEVATED BLOOD PRESSURE Last administered on 07/29/16 14:50; Admin Dose 10 MG; Start 07/28/16 at 20:30 Nifedipine (Procardia Xl) 60 mg QAM PO Last administered on 08/15/16 10:12; Admin Dose 60 MG; Start 08/02/16 at 09:00 Nifedipine 30 mg 30 mg QHS PO Last administered on 08/14/16 21:46; Admin Dose 30 MG; Start 08/01/16 at 21:00 Daptomycin 470 mg/ Sodium Chloride 100 ml @ 200 mls/hr Q48H IVPB Last administered on 08/14/16 23:34; Admin Dose 200 MLS/HR; Start 08/02/16 at 22:00 Ceftazidime (Fortaz 1gm/50 ml (Pmx)) 50 ml @ 100 mls/hr DAILY IVPB Last administered on 08/15/16 12:17; Admin Dose 100 MLS/HR; Start 08/12/16 at 09:00 Epoetin Zana (Epogen (Esrd)) 8,000 units TuThSa@17 SC Last administered on 08/14 18:57; Admin Dose 8,000 UNITS; Start 08/12/16 at 17:00 Furosemide (Lasix) 20 mg DAILY IV Last administered on 08/15/16 10:11; Admin Dose 20 MG; Start 08/13/16 at 09:00 Potassium Chloride 20 meq 20 meq DAILY PO Last administered on 08/15/16 10:11 ; Admin Dose 20 MEQ; Start 08/13/16 at 09:00 Dextrose (D5W) 1,000 ml @ 100 mls/hr Q10H IV Last administered on 08/14/16 21 :47; Admin Dose 100 MLS/HR; Start 08/13/16 at 13:30 Benazepril HCl 20 mg 20 mg BID PO ; Start 08/15/16 at 21:00 Magnesium Sulfate (Magnesium Sulfate 4 Gm/100 ml) 100 ml @ 25 mls/hr ONCE ONCE IVPB ; Start 08/15/16 at 15:00; Stop 08/15/16 at 18:59 ISAEL CRYSTAL Aug 15, 2016 15:06
--- NOTE | 2016-08-15 19:32 | DS ---
Date/Time of Note Date/Time of Note DATE: 08/15/16 TIME: 19:27 Discharge Summary Admission/Discharge Info Admit Date/Time July 09, 2016 at 12:24 Discharge Date/Time Discharge Diagnosis - Hypernatremia, improved. - Hypokalemia, replacement ordered. - Recurrent sepsis secondary to UTI. Dr. Lnagford is following an infection disease consultation. - Pseudomonas urinary tract infection. Continue antibiotics per ID. - Osteomyelitis of bilateral heels, continue daptomycin until August 25 per ID. - Bilateral heel wounds, patient is evaluated by Dr. Bell in podiatry consultation with recommendation of continue current wound care and not to proceed with debridement. - C. difficile colitis. Dr. Beatriz cardenas is following an infection disease consultation. Continue oral vancomycin and intravenous metronidazole. - Colitis ulcers per colonoscopy, continue to follow-up gastroenterology recommendations. - Infected wounds on bilateral lower extremities. Continue antibiotics per ID. - Acute kidney injury on chronic kidney disease stage III with electrolyte imbalances. Dr. Clarke is following in nephrology consultation. - Acute metabolic encephalopathy, resolved. - Hypertension. Continue clonidine, Procardia and benazepril - Chronic obstructive pulmonary disease. Continue DuoNeb. - Benign prostatic hypertrophy. Continue Flomax. - Multiple decubitus ulcers present on admission. Continue local wound care, offloading. - Acute cerebrovascular accident. Continue aspirin. - Dyslipidemia. Continue Lipitor. - Dementia with behavioral disturbance. Continue Zyprexa. Problems: Patient Condition: Good Hx of Present Illness Per H&P Hospital Course - Recurrent sepsis secondary to UTI. Dr. Langford is following an infection disease consultation. - Pseudomonas urinary tract infection. Continue antibiotics per ID. - Osteomyelitis of bilateral heels, continue daptomycin until August 25 per ID. - Bilateral heel wounds, patient is evaluated by Dr. Bell in podiatry consultation with recommendation of continue current wound care and not to proceed with debridement. - C. difficile colitis. Dr. Beatriz cardenas is following an infection disease consultation. Continue oral vancomycin and intravenous metronidazole. - Colitis ulcers per colonoscopy, continue to follow-up gastroenterology recommendations. - Infected wounds on bilateral lower extremities. Continue antibiotics per ID. - Acute kidney injury on chronic kidney disease stage III with electrolyte imbalances. Dr. Clarke is following in nephrology consultation. - Acute metabolic encephalopathy, resolved. - Hypertension. Continue clonidine, Procardia and benazepril - Chronic obstructive pulmonary disease. Continue DuoNeb. - Benign prostatic hypertrophy. Continue Flomax. - Multiple decubitus ulcers present on admission. Continue local wound care, offloading. - Acute cerebrovascular accident. Continue aspirin. - Dyslipidemia. Continue Lipitor. - Dementia with behavioral disturbance. Continue Zyprexa. Home Meds Reported Medications Olanzapine* (Zyprexa*) 5 Mg Tablet, 5 MG PO QHS, #30 TAB 07/09/16 Zinc Sulfate* (Zinc Sulfate*) 220 Mg Tablet, 220 MG PO DAILY, TAB 07/09/16 Lisinopril* (Zestril*) 40 Mg Tablet, 40 MG PO DAILY, #30 TAB HOLD FOR SBP<110 07/09/16 Latanoprost (Xalatan) 2.5 Ml Drops, 1 DROP BOTH EYES QHS, #1 BOTTLE 07/09/16 Ascorbic Acid* (Vitamin C*) 500 Mg Capsule.sa, 500 MG PO DAILY, CAP 07/09/16 Acetaminophen* (Acetaminophen*) 650 Mg Tablet, 650 MG PO Q4 Y for PAIN AND OR ELEVATED TEMP, #30 TAB 07/09/16 Trazodone Hcl* (Trazodone Hcl*) 100 Mg Tablet, 100 MG PO QHS, #30 TAB 07/09/16 Pantoprazole* (Protonix*) 40 Mg Tablet.dr, 40 MG PO AC BREAKFAST, TAB 07/09/16 Finasteride* (Proscar*) 5 Mg Tablet, 5 MG PO DAILY, TAB 07/09/16 Hydrocodone/Acetaminophen ([place] 5-325 Tablet) 1 Each Tablet, 1 EACH PO Q4 Y for SEVERE PAIN LEVEL 7-10, TAB 07/09/16 Multivitamins* (Theragran*) 1 Tab Tab, 1 TAB PO DAILY, TAB 07/09/16 Atorvastatin* (Atorvastatin*) 40 Mg Tablet, 40 MG PO QHS, #30 TAB 07/09/16 Furosemide* (Furosemide*) 20 Mg Tablet, 20 MG PO DAILY, #60 TAB 07/09/16 Ipratropium-Albuterol (Ipratropium-Albuterol) 0.5-3 Mg/3 Ml Ampul.neb, 3 ML INHALATION Q6, #30 VIAL 07/09/16 Clonidine Hcl* (Clonidine Hcl*) 0.1 Mg Tab, 0.1 MG PO Q6 Y for ELEVATED BLOOD PRESSURE, TAB 07/09/16 Benztropine Mesylate* (Benztropine Mesylate*) 1 Mg Tablet, 1 MG PO BID, TAB 07/09/16 Aspirin* (Aspirin* Chew) 81 Mg Tab.chew, 81 MG PO DAILY, TAB.CHEW 07/09/16 Arginine/Ascorbate Sod/Julio AC (Arginaid Powder) 1 Each Powd.pack, 1 EACH PO BID 07/09/16 Zolpidem Tartrate* (Ambien*) 10 Mg Tablet, 10 MG PO QHS Y for INSOMNIA, TAB 07/09/16 Primary Care Provider Ren Rene MD Pending Labs Laboratory Tests Test 08/14/16 21:38 08/15/16 05:00 08/15/16 05:10 08/15/16 05:20 Sodium Level 142mmol/L (135-144) 145mmol/L (135-144) Potassium Level 3.4mmol/L (3.5-5.1) 3.5mmol/L (3.5-5.1) Chloride Level 117mmol/L (97-110) 115mmol/L (97-110) Carbon Dioxide Level 21mmol/L (21-31) 19mmol/L (21-31) Anion Gap 7 (8-16) 15 (8-16) Blood Urea Nitrogen 23mg/dl (7-20) 22mg/dl (7-20) Creatinine 1.85mg/dl (0.61-1.24) 1.72mg/dl (0.61-1.24) Glucose Level 78mg/dl (70-220) 79mg/dl (70-220) Calcium Level 6.6mg/dl (8.4-10.2) 6.6mg/dl (8.4-10.2) Urine Color LT. YELLOW (YELLOW) Urine Clarity SLIGHTLY CLOUDY (CLEAR) Urine pH 5.5 (5.0-9.0) Urine Specific [place] 1.020 (1.003-1.030) Urine Ketones NEGATIVE (NEGATIVE) Urine Nitrite NEGATIVE (NEGATIVE) Urine Bilirubin NEGATIVE (NEGATIVE) Urine Urobilinogen 0.2 E.U./dL (0.1-1.0) Urine Leukocyte Esterase 3+ (NEGATIVE) Urine Microscopic RBC 10-25/HPF (0) Urine Microscopic WBC 10-25/HPF (0) Urine Squamous Epithelial Cells /HPF (FEW) Urine Bacteria MODERATE/HPF (NONE SEEN) Urine Hemoglobin 3+ (NEGATIVE) Urine Glucose NEGATIVE% (NEGATIVE) Urine Total Protein 2+ (NEGATIVE) White Blood Count 14.810^3/ul (4.8-10.8) Red Blood Count 2.8810^6/ul (4.70-6.10) Hemoglobin 8.5g/dl (14.0-18.0) Hematocrit 26.3% (42.0-52.0) Mean Corpuscular Volume 91.3fl (82.0-101.0) Mean Corpuscular Hemoglobin 29.5pg (29.0-33.0) Mean Corpuscular Hemoglobin Concent 32.3g/dl (32.0-37.0) Red Cell Distribution Width 20.4% (11.5-14.5) Platelet Count 08218^3/UL (140-415) Mean Platelet Volume 9.3fl (7.4-10.4) Neutrophils % 71.0% (39.0-77.0) Lymphocytes % 12.8% (15.0-51.0) Monocytes % 9.3% (0.0-11.0) Eosinophils % 4.9% (0.0-7.0) Basophils % 0.2% (0.0-2.0) Nucleated Red Blood Cells % 0.0/100WBC (0.0-0.0) Neutrophils # 10.510^3/ul (1.6-7.5) Lymphocytes # 1.910^3/ul (0.8-2.9) Monocytes # 1.410^3/ul (0.3-0.9) Eosinophils # 0.710^3/ul (0.0-0.5) Basophils # 0.010^3/ul (0.0-0.1) Nucleated Red Blood Cells # 0.010^3/ul (0.0-0.0) Magnesium Level 1.1mg/dl (1.7-2.5) ALE MCCONNELL Aug 15, 2016 19:32
[2016-08-15 20:05] VITALS: BP 110/72; RESP 18
[2016-08-15] MEDS: OLANZAPINE 5 MG TAB PO SCH (20:26)
[2016-08-15] MEDS: LATANOPROST 0.005% 2.5 ML OPH BOTH EYES SCH (20:27)
[2016-08-15] MEDS ORDERED: BENAZEPRIL 20 MG TAB PO SCH (21:00)
--- NOTE | 2016-08-15 21:08 | CONS ---
Date/Time of Note Date/Time of Note DATE: 08/15/16 TIME: 21:04 Assessment/Plan Assessment/Plan Chief Complaint/Hosp Course Renal function continues to improve gradually. Persistent Pyuria may represent Intra-renal abcess. Problems: Additional Assessment/Plan Pt being transfered to [facility] where he'd followed as needed Consultation Date/Type/Reason Admit Date/Time July 09, 2016 at 12:24 Initial Consult Date 07/11/16 Type of Consultation: renal Referring Provider: RONNIE PATEL MD 24 HR Interval Summary Free Text/Dictation very little communication Exam/Review of Systems Vital Signs Vitals Vital Signs Date Time Temp Pulse Resp B/P Pulse Ox O2 Delivery O2 Flow Rate FiO2 08/15/16 20:05 97.3 83 18 110/72 92 08/12/16 02:41 21 Intake and Output 08/14/16 08/14/16 08/15/16 15:00 23:00 07:00 Intake Total 150 ml 1720 ml 800 ml Output Total 700 ml Balance 150 ml 1020 ml 800 ml Exam Constitutional: alert, oriented, well developed Psych: nl mood/affect, no complaints Head: atraumatic, normocephalic Eyes: EOMI, PERRL, nl conjunctiva, nl lids, nl sclera ENMT: nl external ears & nose, nl lips & teeth, nl nasal mucosa & septum Neck: non-tender, supple Respiratory: clear to auscultation, normal air movement Cardiovascular: nl pulses, regular rate and rhythm Gastrointestinal: nl liver, spleen, non-tender, soft Genitourinary - Male: other (tellez in place) Musculoskeletal: nl extremities to inspection, nl gait and stance Extremities: normal pulses Neurological: SEAM FINISHER II-XII intact, nl mental status, nl speech, nl strength Skin: nl turgor, No rash or lesions Lymph: nl lymph nodes Results Mg is 1.1, pt got 4 gms Mag sulfate IV Result Diagram: 08/15/16 0510 08/15/16 0510 Results 24 hrs Laboratory Tests Test 08/14/16 21:38 08/15/16 05:00 08/15/16 05:10 08/15/16 05:20 Sodium Level 142 145 H Potassium Level 3.4 L 3.5 Chloride Level 117 H 115 H Carbon Dioxide Level 21 19 L Anion Gap 7 L 15 # Blood Urea Nitrogen 23 H 22 H Creatinine 1.85 H 1.72 H Glucose Level 78 79 Calcium Level 6.6 L 6.6 L Urine Color LT. YELLOW Urine Clarity SLIGHTLY CLOUDY Urine pH 5.5 Urine Specific [place] 1.020 Urine Ketones NEGATIVE Urine Nitrite NEGATIVE Urine Bilirubin NEGATIVE Urine Urobilinogen 0.2 E.U./dL Urine Leukocyte Esterase 3+ H Urine Microscopic RBC 10-25 Urine Microscopic WBC 10-25 Urine Squamous Epithelial Cells Urine Bacteria MODERATE Urine Hemoglobin 3+ H Urine Glucose NEGATIVE Urine Total Protein 2+ H White Blood Count 14.8 #H Red Blood Count 2.88 L Hemoglobin 8.5 L Hematocrit 26.3 L Mean Corpuscular Volume 91.3 Mean Corpuscular Hemoglobin 29.5 Mean Corpuscular Hemoglobin Concent 32.3 Red Cell Distribution Width 20.4 H Platelet Count 613 H Mean Platelet Volume 9.3 Neutrophils % 71.0 Lymphocytes % 12.8 L Monocytes % 9.3 Eosinophils % 4.9 Basophils % 0.2 Nucleated Red Blood Cells % 0.0 Neutrophils # 10.5 H Lymphocytes # 1.9 Monocytes # 1.4 H Eosinophils # 0.7 H Basophils # 0.0 Nucleated Red Blood Cells # 0.0 Magnesium Level 1.1 L Medications Medications Current Medications Acetaminophen (Tylenol Tab) 500 mg Q6H PRN PO PAIN AND OR ELEVATED TEMP; Start 07/09/16 at 20:30 Ondansetron HCl (Zofran Inj) 4 mg Q6H PRN IV NAUSEA AND/OR VOMITING; Start at 20:30 Aspirin (Aspirin) 81 mg DAILY PO Last administered on 08/15/16 10:13; Admin Dose 81 MG; Start 07/10/16 at 09:00 Benztropine Mesylate (Cogentin) 1 mg BID PO Last administered on 08/15/16 20: 25; Admin Dose 1 MG; Start 07/09/16 at 21:00 Finasteride (Proscar) 5 mg DAILY PO Last administered on 08/15/16 10:12; Admin Dose 5 MG; Start 07/10/16 at 09:00 Acetaminophen/ Hydrocodone Bitart ([place] (5/325)) 1 tab Q4 PRN PO SEVERE PAIN LEVEL 7-10 Last administered on 07/15/16 16:21; Admin Dose 1 TAB; Start at 20:30 Latanoprost (Xalatan) 1 drop QHS BOTH EYES Last administered on 08/15/16 20:27 ; Admin Dose 1 DROP; Start 07/09/16 at 21:00 Multivitamins Therapeutic (Theragran) 1 tab DAILY PO Last administered on 10:13; Admin Dose 1 TAB; Start 07/10/16 at 09:00 Olanzapine (Zyprexa) 5 mg QHS PO Last administered on 08/15/16 20:26; Admin Dose 5 MG; Start 07/09/16 at 21:00 Zinc Sulfate (Zinc Sulfate) 220 mg DAILY PO Last administered on 08/15/16 10: 11; Admin Dose 220 MG; Start 07/10/16 at 09:00 Acetaminophen (Tylenol Supp) 650 mg Q6H PRN [place] ELEVATED TEMPERATURE Last administered on 07/10/16 09:51; Admin Dose 650 MG; Start 07/10/16 at 09:30 Collagenase (Santyl) 1 applic DAILY TOP Last administered on 08/15/16 10:16; Admin Dose 1 APPLIC; Start 07/10/16 at 14:00 Bisacodyl (Dulcolax) 10 mg BID PO Last administered on 08/15/16 20:26; Admin Dose 10 MG; Start 07/13/16 at 15:00 Zolpidem Tartrate (Ambien) 2.5 mg HS PRN PO INSOMNIA; Start 07/17/16 at 19:00 Lorazepam (Ativan) 0.5 mg Q6H PRN PO ANXEITY Last administered on 07/19/16 22: 28; Admin Dose 0.5 MG; Start 07/18/16 at 16:00 Vancomycin HCl 125 mg 125 mg Q6 PO Last administered on 08/15/16 19:55; Admin Dose 125 MG; Start 07/21/16 at 19:00 Metronidazole (Flagyl 500 Mg (Pmx)) 100 ml @ 100 mls/hr Q8 IVPB Last administered on 08/15/16 13:59; Admin Dose 100 MLS/HR; Start 07/22/16 at 16:30 Lactobacillus Acidophilus/ Rhamnosus (Culturelle) 1 cap BID PO Last administered on 08/15/16 20:25; Admin Dose 1 CAP; Start 07/23/16 at 21:00 Ascorbic Acid (Vitamin C) 500 mg DAILY PO Last administered on 08/15/16 10:13 ; Admin Dose 500 MG; Start 07/26/16 at 09:00 Metoprolol Tartrate (Lopressor) 25 mg BID PO Last administered on 08/15/16 10: 11; Admin Dose 25 MG; Start 07/28/16 at 21:00 Hydralazine HCl (Apresoline) 10 mg Q4H PRN IV ELEVATED BLOOD PRESSURE Last administered on 07/29/16 14:50; Admin Dose 10 MG; Start 07/28/16 at 20:30 Nifedipine (Procardia Xl) 60 mg QAM PO Last administered on 08/15/16 10:12; Admin Dose 60 MG; Start 08/02/16 at 09:00 Nifedipine 30 mg 30 mg QHS PO Last administered on 08/14/16 21:46; Admin Dose 30 MG; Start 08/01/16 at 21:00 Daptomycin 470 mg/ Sodium Chloride 100 ml @ 200 mls/hr Q48H IVPB Last administered on 08/14/16 23:34; Admin Dose 200 MLS/HR; Start 08/02/16 at 22:00 Ceftazidime (Fortaz 1gm/50 ml (Pmx)) 50 ml @ 100 mls/hr DAILY IVPB Last administered on 08/15/16 12:17; Admin Dose 100 MLS/HR; Start 08/12/16 at 09:00 Epoetin Zana (Epogen (Esrd)) 8,000 units TuThSa@17 SC Last administered on 08/14 18:57; Admin Dose 8,000 UNITS; Start 08/12/16 at 17:00 Furosemide (Lasix) 20 mg DAILY IV Last administered on 08/15/16 10:11; Admin Dose 20 MG; Start 08/13/16 at 09:00 Potassium Chloride 20 meq 20 meq DAILY PO Last administered on 08/15/16 10:11 ; Admin Dose 20 MEQ; Start 08/13/16 at 09:00 Dextrose (D5W) 1,000 ml @ 100 mls/hr Q10H IV Last administered on 08/15/16 15 :34; Admin Dose 100 MLS/HR; Start 08/13/16 at 13:30 Benazepril HCl (Lotensin) 20 mg BID PO ; Start 08/15/16 at 21:00 JUANA AYALA MD Aug 15, 2016 21:08
== END 2016-08-15 21:00 | DRG 682 ==
LOC: E/R 10:07 → MS2 12:24 → TEL 18:30 → MS2 07-18 00:45
PROVIDERS: ADMIT Internal Medicine; ATTEND Internal Medicine
PROC: 0DJD8ZZ Inspection of Lower Intestinal Tract, Via Natural or Artificial Opening Endoscopic (ICD-10-PCS; 2016-07-10)
PROC: 0DJD8ZZ Inspection of Lower Intestinal Tract, Via Natural or Artificial Opening Endoscopic (ICD-10-PCS; 2016-07-16)
PROC: 30233N1 Transfusion of Nonautologous Red Blood Cells into Peripheral Vein, Percutaneous Approach (ICD-10-PCS; principal; 2016-07-29)
DX: N17.0 Acute kidney failure with tubular necrosis (principal); A41.9 Sepsis, unspecified organism; I63.9 Cerebral infarction, unspecified; G92 Toxic encephalopathy; I50.33 Acute on chronic diastolic (congestive) heart failure; L89.614 Pressure ulcer of right heel, stage 4; J18.9 Pneumonia, unspecified organism; L89.153 Pressure ulcer of sacral region, stage 3; N39.0 Urinary tract infection, site not specified; M86.8X7 Other osteomyelitis, ankle and foot; E87.2 Acidosis; F03.91 Unspecified dementia, unspecified severity, with behavioral disturbance; E87.0 Hyperosmolality and hypernatremia; A04.7 Enterocolitis due to Clostridium difficile; K63.3 Ulcer of intestine; K59.39 Other megacolon; D68.9 Coagulation defect, unspecified; L03.116 Cellulitis of left lower limb; I70.263 Atherosclerosis of native arteries of extremities with gangrene, bilateral legs; L97.429 Non-pressure chronic ulcer of left heel and midfoot with unspecified severity; L97.419 Non-pressure chronic ulcer of right heel and midfoot with unspecified severity; I13.0 Hypertensive heart and chronic kidney disease with heart failure and stage 1 through stage 4 chronic kidney disease, or unspecified chronic kidney disease; N15.1 Renal and perinephric abscess; N18.4 Chronic kidney disease, stage 4 (severe); J43.9 Emphysema, unspecified; N40.0 Benign prostatic hyperplasia without lower urinary tract symptoms; E78.5 Hyperlipidemia, unspecified; K59.00 Constipation, unspecified; K40.90 Unilateral inguinal hernia, without obstruction or gangrene, not specified as recurrent; Z72.0 Tobacco use; L89.322 Pressure ulcer of left buttock, stage 2; L89.312 Pressure ulcer of right buttock, stage 2; L89.221 Pressure ulcer of left hip, stage 1; E87.6 Hypokalemia; E83.51 Hypocalcemia; B95.62 Methicillin resistant Staphylococcus aureus infection as the cause of diseases classified elsewhere; R60.9 Edema, unspecified; B95.2 Enterococcus as the cause of diseases classified elsewhere; B96.89 Other specified bacterial agents as the cause of diseases classified elsewhere; D64.9 Anemia, unspecified; L89.622 Pressure ulcer of left heel, stage 2; L08.89 Other specified local infections of the skin and subcutaneous tissue; D69.59 Other secondary thrombocytopenia; T36.8X5A Adverse effect of other systemic antibiotics, initial encounter; B96.5 Pseudomonas (aeruginosa) (mallei) (pseudomallei) as the cause of diseases classified elsewhere
CPT/HCPCS: 36415; 36430; 36600; 70450; 71010; 71250; 73718; 74176; 76775; 80048; 80053; 80061; 80076; 81001; 82550; 82553; 82570; 82575; 82803; 82962; 83540; 83605; 83690; 83735; 84132; 84145; 84155; 84156; 84166; 84300; 84484; 85025; 85045; 85049; 85610; 85670; 85730; 86038; 86160; 86644; 86703; 86850; 86900; 86901; 86920; 87040; 87070; 87075; 87086; 87400; 89190; 92526; 92610; 93005; 93306; 93922; 93971; 94664; 95819; J1940; J0360; J0692; J0886; J2060; J2185; J2250; J2370; J3010; J3480; J7040; J7070; P9016; Q4081